=== PATIENT | female | born 1945 | race Caucasian/White ===

== ENCOUNTER 2018-05-19 18:44 | Inpatient (IN) | payer OTHER ==
--- NOTE | 2018-05-19 19:18 | PDOC ---
History of Present Illness - General Chief Complaint: Wound Stated Complaint: WOUND CARE Time Seen by Provider: 05/19/18 19:17 History Source: Patient - History of Present Illness Initial Comments: 05/19/18 19:25 Patient is a 80 year old female with a PMH of HTN, BPD, HLD, DM, pressure ulcers and anemia BIBEMS from [facility] for possible infected sacral decub ulcer as well as B/L heel ulcers. Daughter @ bedside assists in history. Patient has been receiving wound care including wound vac drainage of sacral ulcer for the past 2 weeks. Notes patient @ [facility] since April 03 because she was unable to ambulate. Denies any known fevers/ chills. C/o decreased PO intake with no noted weight loss. NKDA Surgical: Social: denies toxic habits PMD: Dr. Wills Past History - Past Medical History Allergies/Adverse Reactions: Allergies Allergy/AdvReac Type Severity Reaction Status Date / Time No Known Allergies Allergy Verified 05/19/18 18:55 Home Medications: Ambulatory Orders Aa/Hydrolyzed Collagen, Whey [Lps 15-30 Liquid] 30 ml PO BID 05/19/18 Acetaminophen [Tylenol] 650 mg PO QID PRN 05/19/18 Amlodipine Besylate [Norvasc -] 10 mg PO DAILY 05/19/18 Apixaban [Eliquis -] 2.5 mg PO BID 05/19/18 Ascorbic Acid [Vitamin C -] 500 mg PO DAILY 05/19/18 Bacitracin - [Bacitracin Topical Ointment -] 1 applic TP BID 05/19/18 Bisacodyl [Dulcolax -] 5 mg PO DAILY 05/19/18 Collagenase Clostridium Hist. [Santyl] 1 applic TP BID 05/19/18 Ferrous Sulfate [Feosol] 1 tab PO DAILY 05/19/18 Insulin Glargine,Hum.rec.anlog [Lantus Solostar] 12 unit SQ DAILY 05/19/18 Insulin Lispro [Humalog] 0 unit SQ ASDIR 05/19/18 LORazepam [Ativan] 0.5 mg PO BID 05/19/18 Mvit,Calcium,Iron,Mins/A.acids [[place] Double Strength Capsule] 1 each PO DAILY 05/19/18 Polyethylene Glycol 3350 [Miralax (For Daily Use) -] 17 gm PO DAILY 05/19/18 Propranolol HCl 40 mg PO BID 05/19/18 Risperidone [Risperdal] 0.25 mg PO BID 05/19/18 Senna [place] Extract [Senna] 7.5 ml PO HS 05/19/18 Sulfamethoxazole/Trimethoprim [Bactrim Ds -] 1 tab PO BID 05/19/18 - Suicide/Smoking/Psychosocial Hx Smoking History: Unknown if ever smoked Review of Systems - Review of Systems Constitutional: No: Chills, Fever HEENTM: No: Blurred Vision, Double Vision Respiratory: No: Cough, Shortness of Breath Cardiac (ROS): No: Chest Pain, Lightheadedness, Palpitations, Syncope ABD/GI: Yes: Poor Appetite. No: Constipated, Diarrhea, Nausea, Vomiting : No: Burning, Dysuria *Physical Exam - Vital Signs Last Vital Signs Temp Pulse Resp BP Pulse Ox 99.5 F 79 20 113/50 L 100 05/19/18 18:53 05/19/18 18:53 05/19/18 18:53 05/19/18 18:53 05/19/18 18:53 - Physical Exam General Appearance: Yes: Nourished, Thin Neck: positive: Trachea midline, Supple Respiratory/Chest: positive: Lungs Clear, Normal Breath Sounds Cardiovascular: positive: S1, S2. negative: Edema, JVD, Murmur Vascular Pulses: Dorsalis-Pedis (R): 2+, Doralis-Pedis (L): 2+ Integumentary: positive: Other (Stage 4-5, 8x10 sacral decubitus ulcer; 1 mm R sided buttock ulcer) Neurologic: positive: Fully Oriented, Alert ED Treatment Course - LABORATORY CBC & Chemistry Diagram: 05/19/18 20:10 05/19/18 20:10 Medical Decision Making - Medical Decision Making 05/19/18 19:32 73 year old female with sacral decub ulcer and B/L LE ulcers presents for concerns of infected ulcer. Febrile, VS unremarkable. Will obtain wound and blood cultures to r/o infections as well as basic labs. Patient declining any pain medication at this time. 05/19/18 19:55 OTD of Vancomycin for MRSA coverage 05/19/18 22:00 No leukocytosis Cr 1.8 (as per records from [facility] Cr 1.3 on 04/2017) Case d/w Dr. Hightower - will admit for further evaluation including wound care. Patient and patient's daughter counseled on plan of care. *DC/Admit/Observation/Transfer Diagnosis at time of Disposition: AMILCAR (acute kidney injury) - Discharge Dispostion Condition at time of disposition: Fair Decision to Admit order: Yes - Referrals - Patient Instructions - Post Discharge Activity
[2018-05-19] MEDS ORDERED: ACETAMINOPHEN 1000 MG/100 ML VIAL (NON FORMULARY) IVPB ONE (19:54)
[2018-05-19] MEDS ORDERED: SODIUM CHLORIDE 0.9% 1000 ML INFUS.BAG IV STA (19:54)
[2018-05-19] MEDS ORDERED: ACETAMINOPHEN INJECTION 100 ML IVPB ONE (20:31)
[2018-05-19 20:45] LABS: BASO % 0.7 % (0-2.0); EOS % 2.5 % (0-4.5); HEMATOCRIT 29.7 % (32.4-45.2); HEMOGLOBIN 9.5 GM/dL (10.7-15.3); LYMPH % 12.6 % (8-40); MCH 29.8 pg (25.7-33.7); MEAN CELL VOLUME 93.1 fl (80-96); MONO % 8.3 % (3.8-10.2); NEUT % 75.9 % (42.8-82.8); PLATELET COUNT 530 K/MM3 (134-434); RBC 3.18 M/mm3 (3.60-5.2); RDW 15.6 % (11.6-15.6); WHITE BLOOD COUNT 8.9 K/mm3 (4.0-10.0)
[2018-05-19] MEDS ORDERED: VANCOMYCIN 1,000 MG in DEXTROSE 5%-WATER - 250 ML IVPB ONE (20:53)
[2018-05-19 21:21] LABS: ALK PHOS 171 U/L (45-117); ANION GAP 10 MMOL/L (8-16); BILIRUBIN,TOTAL 0.2 mg/dL (0.2-1); BLOOD UREA NITROGEN 42 mg/dL (7-18); CALCIUM 8.9 mg/dL (8.5-10.1); CHLORIDE 109 mmol/L (98-107); CO2 18 mmol/L (21-32); CREATININE 1.8 mg/dL (0.55-1.3); GLUCOSE,RANDOM 157 mg/dL (74-106); POTASSIUM 5.3 mmol/L (3.5-5.1); SGOT/AST 40 U/L (15-37); SGPT/ALT 82 U/L (13-61); SODIUM 138 mmol/L (136-145); TOT PROT 6.5 g/dl (6.4-8.2)
[2018-05-19] MEDS ORDERED: SODIUM CHLORIDE 0.9% 1000 ML INFUS.BAG IV ONE (21:34)
--- NOTE | 2018-05-19 21:58 | PDOC ---
Attending Attestation - Resident Resident Name: Raquel Morris - ED Attending Attestation I have performed the following: I have examined & evaluated the patient, The case was reviewed & discussed with the resident, I agree w/resident's findings & plan, Exceptions are as noted - HPI HPI: 05/19/18 21:56 The patient is a 73 year old female, with a significant past medical history of HTN, BPD, HLD, DM, pressure ulcers, and anemia via EMS from [facility], who presents to the emergency department with infected decubitus ulcers. As per patients daughter, she was receiving wound care of her decubitus ulcer for the past 2 weeks but it has been worsening. She reports foul smelling and purulent discharge. The daughter also endorses decreased PO intake without noticeable weight loss. The patient notes not feeling well. She denies any recent nausea, vomiting, change in urinary or bowel habits. The history was obtained from the daughter at bedside. Allergies: NKA Past surgical history: None reported. Social history: Nonsmoker. Denies EtOH use and recreational drug use. Primary Care Physician: Dr. Wills - Physicial Exam PE: 05/19/18 21:57 GENERAL: Awake, alert, and fully oriented, in no acute distress. HEAD: No signs of trauma EYES: PERRLA, EOMI, sclera anicteric, conjunctiva clear ENT: Auricles normal inspection, hearing grossly normal, nares patent, oropharynx clear without exudates. Moist mucosa NECK: Nontender, no stepoffs, Normal ROM, supple, no lymphadenopathy, JVD, or masses LUNGS: Breath sounds equal, clear to auscultation bilaterally. No wheezes, and no crackles HEART: Regular rate and rhythm, normal S1 and S2, no murmurs, rubs or gallops ABDOMEN: Soft, nontender, normoactive bowel sounds. No guarding, no rebound. No masses EXTREMITIES: Normal range of motion, no edema. No clubbing or cyanosis. No cords, erythema, or tenderness NEUROLOGICAL: Cranial nerves II through XII intact. 5/5 strength and sensation in all extremities, Normal speech, normal gait, normal cerebellar function SKIN: + large sacral decubitus ulcer + purulent discharge, erythema - Medical Decision Making 05/19/18 21:57 73 F with infected sacral decub. Febrile in ED to 100.3. - Labs, cultures, wound culture - CXR, UA - IVF, abx - Admit
[2018-05-19] MEDS ORDERED: VANCOMYCIN 1 GRAM (PRE-DOCKED) 1,000 MG/250 ML BAG IVPB ONE (22:08)
[2018-05-19 23:01] LABS: ERYTHROCYTE SEDIMENTATION RATE 108 mm/hr (0-30)
[2018-05-19] MEDS ORDERED: SODIUM CHLORIDE 1,000 ML IV SCH (23:45)
[2018-05-19] MEDS ORDERED: PIPERACILLIN/TAZOB 3.375 GM 3.375 GM in DEXTROSE 5%-WATER - 50 ML IVPB ONE (23:52)
[2018-05-20] MEDS ORDERED: ACETAMINOPHEN 325 MG TABLET (FP) PO PRN (00:07)
--- NOTE | 2018-05-20 00:07 | HP ---
CHIEF COMPLAINT: sent from [facility] for wound infection PCP: Johann Florence HISTORY OF PRESENT ILLNESS: This is a 73 year old female with a past medical history of HTN, HLD, DM, chronic ulcers who was sent from her [facility] for her wounds. Pt denies any pain or distress. Pt is poor historian, history obtained from chart ER course was notable for: (1) WBC 8.9 (2) CRP 4.2 (3) ESR 108 Recent Travel: pt denies PAST MEDICAL HISTORY: HTN, HLD, DM, bipolar disorder, anxiety, DVT PAST SURGICAL HISTORY: unknown Social History: Smoking: quit Alcohol: pt denies Drugs: pt denies Family History: unk Allergies No Known Allergies Allergy (Verified 05/19/18 18:55) HOME MEDICATIONS: 3 Medication Instructions Recorded Aa/Hydrolyzed Collagen, Whey [Lps 30 ml PO BID 05/19/18 15-30 Liquid] Acetaminophen [Tylenol] 650 mg PO QID PRN 05/19/18 Amlodipine Besylate [Norvasc -] 10 mg PO DAILY 05/19/18 Apixaban [Eliquis -] 2.5 mg PO BID 05/19/18 Ascorbic Acid [Vitamin C -] 500 mg PO DAILY 05/19/18 Bacitracin - [Bacitracin Topical 1 applic TP BID 05/19/18 Ointment -] Bisacodyl [Dulcolax -] 5 mg PO DAILY 05/19/18 Collagenase Clostridium Hist. 1 applic TP BID 05/19/18 [Santyl] Ferrous Sulfate [Feosol] 1 tab PO DAILY 05/19/18 Insulin Glargine,Hum.rec.anlog 12 unit SQ DAILY 05/19/18 [Lantus Solostar] Insulin Lispro [Humalog] 0 unit SQ ASDIR 05/19/18 LORazepam [Ativan] 0.5 mg PO BID 05/19/18 Mvit,Calcium,Iron,Mins/A.acids 1 each PO DAILY 05/19/18 [[place] Double Strength Capsule] Polyethylene Glycol 3350 [Miralax 17 gm PO DAILY 05/19/18 (For Daily Use) -] Propranolol HCl 40 mg PO BID 05/19/18 Risperidone [Risperdal] 0.25 mg PO BID 05/19/18 Senna [place] Extract [Senna] 7.5 ml PO HS 05/19/18 Sulfamethoxazole/Trimethoprim 1 tab PO BID 05/19/18 [Bactrim Ds -] REVIEW OF SYSTEMS CONSTITUTIONAL: Absent: fever, chills, diaphoresis, generalized weakness, malaise, loss of appetite, weight change HEENT: Absent: rhinorrhea, nasal congestion, throat pain, throat swelling, difficulty swallowing, mouth swelling, ear pain, eye pain, visual changes CARDIOVASCULAR: Absent: chest pain, syncope, palpitations, irregular heart rate, lightheadedness , peripheral edema RESPIRATORY: Absent: cough, shortness of breath, dyspnea with exertion, orthopnea, wheezing, stridor, hemoptysis GASTROINTESTINAL: Absent: abdominal pain, abdominal distension, nausea, vomiting, diarrhea, constipation, melena, hematochezia GENITOURINARY: Absent: dysuria, frequency, urgency, hesitancy, hematuria, flank pain, genital pain MUSCULOSKELETAL: Absent: myalgia, arthralgia, joint swelling, back pain, neck pain SKIN: Present: multiple pressure ulcers Absent: rash, itching, pallor HEMATOLOGIC/IMMUNOLOGIC: Absent: easy bleeding, easy bruising, lymphadenopathy, frequent infections ENDOCRINE: Absent: unexplained weight gain, unexplained weight loss, heat intolerance, cold intolerance NEUROLOGIC: Absent: headache, focal weakness or paresthesias, dizziness, unsteady gait, seizure, mental status changes, bladder or bowel incontinence PSYCHIATRIC: Absent: anxiety, depression, suicidal or homicidal ideation, hallucinations. PHYSICAL EXAMINATION Vital Signs - 24 hr 3 05/19/18 05/19/18 05/19/18 18:53 20:42 23:47 Temperature 99.5 F 100.7 F H 99.5 F Pulse Rate 79 Pulse Rate [ 79 Right] Respiratory 20 18 Rate Blood Pressure 113/50 L Blood Pressure 101/41 L [Left Arm] O2 Sat by Pulse 100 100 99 Oximetry (%) GENERAL: Awake, alert, and oriented to person only, in no acute distress. HEAD: Normal with no signs of trauma. EYES: Pupils equal, round and reactive to light, extraocular movements intact, sclera anicteric, conjunctiva clear. No lid lag. EARS, NOSE, THROAT: Ears normal, nares patent, oropharynx clear without exudates. Moist mucous membranes. NECK: Normal range of motion, supple without lymphadenopathy, JVD, or masses. LUNGS: Breath sounds equal, clear to auscultation bilaterally. No wheezes, and no crackles. No accessory muscle use. HEART: Regular rate and rhythm, normal S1 and S2 without murmur, rub or gallop. ABDOMEN: Soft, nontender, not distended, normoactive bowel sounds, no guarding, no rebound, no masses. No hepatomegaly or splenomegaly. MUSCULOSKELETAL: Normal range of motion at all joints. No bony deformities or tenderness. No CVA tenderness. UPPER EXTREMITIES: 2+ pulses, warm, well-perfused. No cyanosis. No clubbing. No peripheral edema. LOWER EXTREMITIES: 2+ pulses, warm, well-perfused. No calf tenderness. No peripheral edema. NEUROLOGICAL: Cranial nerves II-XII intact. Normal speech. PSYCHIATRIC: Cooperative. Good eye contact. Appropriate mood and affect. SKIN: Warm, dry, normal turgor, no rashes noted, normal capillary refill. Multiple wounds as follows: right lateral malleolus 0.9cm x 0.6cm x 0cm 100% slough right heel/posterior heel 9.4cm x 4.7cm x 0cm 100% eschar. surrounding skin macerated Left posterior heel 1.6cm x 2.2cm x 0cm 100% eschar. surrounding skin macerated left heel 6.8cm x 5.3cm x 0cm 100% eschar. surrounding skin macerated R ischium 0.7cm x 0.5cm x 0.2cm, wound bed with slough R sacral/buttock area 1.4cm x 0.8cm wound bed pink and yellow R sacrum 6.3 x 8.8 x 3.9 + slough. + undermining 8 oclock, exposed bone in center. surrounding skin macerated. + malodorous left lateral buttock with small excoriation Laboratory Results - last 24 hr 3 05/19/18 05/19/18 20:10 20:10 WBC 8.9 RBC 3.18 L Hgb 9.5 L Hct 29.7 L MCV 93.1 MCH 29.8 MCHC 32.0 RDW 15.6 Plt Count 530 H MPV 8.0 Absolute Neuts (auto) 6.7 Neutrophils % 75.9 Lymphocytes % 12.6 Monocytes % 8.3 Eosinophils % 2.5 Basophils % 0.7 Nucleated RBC % 0 ESR 108 H Sodium 138 Potassium 5.3 H Chloride 109 H Carbon Dioxide 18 L Anion Gap 10 BUN 42 H Creatinine 1.8 H Creat Clearance w eGFR 27.66 Random Glucose 157 H Calcium 8.9 Total Bilirubin 0.2 AST 40 H ALT 82 H Alkaline Phosphatase 171 H C-Reactive Protein 14.2 H Total Protein 6.5 Albumin 2.0 L ECG Sinus rhythm with PAC vent rate 80, QTC 435 poor baseline, difficult to interpret ASSESSMENT/PLAN: 73yF with PMH HTN, HLD, DM, bipolar disorder, anxiety, DVT presented to the ED for wound infection. sacral wound infection, likely osteo - suggest imaging to r/o osteo vs bone biopsy - add zosyn to antibiotic regimen - cont vanco - ID consult - rec vasc or general surgery consult, defer to PCP - santyl to wound BID B/L heel ulcers with eschar - needs vascular consult or podiatry consult for debridement, defer to PCP - santyl to wounds daily AMILCAR - BUN 42/Cr 1.8, Cr 1.31 on 05/11 - trial gentle IV hydration - if no improvement, renal consult HTN - cont home meds: amlodipine, propranolol DM - cont home levemir 12units daily - BGM AC/HS, novolog sliding scale - adjust as indicated by glucose h/o DVT - cont apixaban bipolar - cont risperidone and ativan DVT PPX - on apixaban FEN - NS @ 75cc/hr - BMP in am - Diabetic low sodium diet as tolerated Dispo: Pt currently requires further inpatient managment of her emergent condition. Visit type - Emergency Visit Emergency Visit: Yes ED Registration Date: 05/19/18 Care time: The patient presented to the Emergency Department on the above date and was hospitalized for further evaluation of their emergent condition. - New Patient This patient is new to me today: Yes Date on this admission: 05/19/18 - Critical Care Critical Care patient: No
[2018-05-20] MEDS ORDERED: PIPERACILLIN/TAZOBACTAM 3.375 GM VIAL IVPB ONE (01:16)
[2018-05-20] MEDS ORDERED: DEXTROSE 5%-WATER - 50 ML IVPB ONE ×3 (01:16→17:12)
[2018-05-20 04:07] VITALS: BMI 24.3
[2018-05-20] MEDS ORDERED: HEPARIN NA (PORCINE) 5,000 UNITS/ML 1ML VIAL SQ SCH (06:00)
[2018-05-20] MEDS: INSULIN (LEVEMIR) 100 UNITS/ML UNITS SQ SCH (06:24)
[2018-05-20] MEDS: INSULIN SLIDING SCALE (NOVOLOG) 1 VIAL SQ SCH ×4 (06:26→21:19)
[2018-05-20 07:14] LABS: BASO % 0.5 % (0-2.0); EOS % 1.8 % (0-4.5); HEMATOCRIT 26.7 % (32.4-45.2); HEMOGLOBIN 8.6 GM/dL (10.7-15.3); LYMPH % 9.8 % (8-40); MCH 29.6 pg (25.7-33.7); MCHC 32.3 g/dl (32.0-36.0); MEAN CELL VOLUME 91.7 fl (80-96); MEAN PLT VOLUME 7.8 fl (7.5-11.1); MONO % 7.7 % (3.8-10.2); NEUT % 80.2 % (42.8-82.8); PLATELET COUNT 426 K/MM3 (134-434); RBC 2.91 M/mm3 (3.60-5.2); RDW 15.9 % (11.6-15.6); WHITE BLOOD COUNT 9.4 K/mm3 (4.0-10.0)
[2018-05-20 07:55] LABS: ANION GAP 9 MMOL/L (8-16); BLOOD UREA NITROGEN 36 mg/dL (7-18); CALCIUM 8.5 mg/dL (8.5-10.1); CHLORIDE 113 mmol/L (98-107); CO2 17 mmol/L (21-32); CREATININE 1.6 mg/dL (0.55-1.3); GLUCOSE,RANDOM 117 mg/dL (74-106); MAGNESIUM 2.1 mg/dL (1.8-2.4); PHOSPHOROUS 3.2 mg/dL (2.5-4.9); POTASSIUM 4.8 mmol/L (3.5-5.1); SODIUM 139 mmol/L (136-145)
[2018-05-20] MEDS: BACITRACIN 15 GM TUBE TOPICAL OINTMENT TP SCH ×2 (09:06→21:11)
[2018-05-20] MEDS: LORazepam 0.5 MG TABLET PO SCH ×2 (09:06→21:10)
[2018-05-20] MEDS: FERROUS SO4 325 MG TABLET (FP) PO SCH (09:06)
[2018-05-20] MEDS: APIXABAN 2.5 MG TABLET PO SCH ×2 (09:06→21:10)
[2018-05-20] MEDS: MULTIVITAMINS THER W-MINERALS COMBO TABLET (FP) PO SCH (09:06)
[2018-05-20] MEDS: ASCORBIC ACID 500 MG TABLET (FP) PO SCH (09:06)
[2018-05-20] MEDS: BISACODYL 5 MG TABLET.DR (FP) PO SCH (09:06)
[2018-05-20] MEDS ORDERED: COLLAGENASE CLOSTRIDIUM HIST. 30 GRAMS TUBE TP SCH ×3 (10:00)
[2018-05-20] MEDS: risperiDONE 0.25 MG TABLET (FP) PO SCH ×3 (10:00→21:11)
[2018-05-20] MEDS ORDERED: PATIENT'S OWN MEDICATION (NON-FORMULARY) (Aa/Hydrolyzed Collagen, Whey [Lps 15-30 Liquid] PO SCH (10:00)
[2018-05-20] MEDS ORDERED: amLODIPine BESYLATE 10 MG TABLET (FP) PO SCH ×2 (10:00→15:02)
[2018-05-20] MEDS ORDERED: POLYETHYLENE GLYCOL 3350 119 GM BTL PO SCH (10:00)
--- NOTE | 2018-05-20 11:37 | PN ---
Progress Note, Physician Chief Complaint: Pt lying in bed in no acute distress. poor historian. currently denies any chest pain, sob, n/v/d - Current Medication List Current Medications: Active Medications Acetaminophen (Tylenol -) 650 mg PO Q6H PRN PRN Reason: PAIN LEVEL 1-5 OR FEVER Amlodipine Besylate (Norvasc -) 10 mg PO DAILY [facility] Last Admin: 05/20/18 09:06 Dose: 10 mg Apixaban (Eliquis -) 2.5 mg PO BID [facility] Last Admin: 05/20/18 09:06 Dose: 2.5 mg Ascorbic Acid (Vitamin C -) 500 mg PO DAILY [facility] Last Admin: 05/20/18 09:06 Dose: 500 mg Bacitracin (Bacitracin -) 1 applic TP BID [facility] Last Admin: 05/20/18 09:06 Dose: 1 applic Bisacodyl (Dulcolax -) 5 mg PO DAILY [facility] Last Admin: 05/20/18 09:06 Dose: 5 mg Collagenase (Santyl -) 1 applic TP DAILY [facility]; Protocol Collagenase (Santyl -) 1 applic TP BID [facility]; Protocol Ferrous Sulfate (Feosol -) 325 mg PO DAILY [facility] Last Admin: 05/20/18 09:06 Dose: 325 mg Sodium Chloride (Normal Saline -) 1,000 mls @ 75 mls/hr IV ASDIR [facility] Last Admin: 05/20/18 01:29 Dose: 75 mls/hr Insulin Aspart (Novolog Vial Sliding Scale -) 1 vial SQ ACHS [facility]; Protocol Last Admin: 05/20/18 06:26 Dose: Not Given Insulin Detemir (Levemir Vial) 12 units SQ DAILY@0700 [facility] Last Admin: 05/20/18 06:24 Dose: 12 units Lorazepam (Ativan -) 0.5 mg PO BID [facility] Last Admin: 05/20/18 09:06 Dose: 0.5 mg Multivitamins/Minerals (Theragran-M) 1 each PO DAILY [facility] Last Admin: 05/20/18 09:06 Dose: 1 each Polyethylene Glycol (Miralax (For Daily Use) -) 17 gm PO DAILY [facility] Propranolol HCl (Inderal -) 40 mg PO BID [facility] Risperidone (Risperdal -) 0.25 mg PO BID [facility] Senna (Senna Oral Solution -) 13.2 mg PO HS YOAV - Objective Vital Signs: Vital Signs Temperature 98.4 F 05/20/18 05:46 Pulse Rate 86 05/20/18 05:46 Respiratory Rate 18 05/20/18 05:46 Blood Pressure 128/42 L 05/20/18 05:46 O2 Sat by Pulse Oximetry (%) 99 05/20/18 03:48 Constitutional: Yes: Well Nourished, No Distress Cardiovascular: Yes: WNL, Regular Rate and Rhythm Respiratory: Yes: WNL, Regular, CTA Bilaterally. No: Accessory Muscle Use, Rhonchi, SOB, Tachypnea, Wheezes Gastrointestinal: Yes: WNL, Normal Bowel Sounds, Soft. No: Distention, Tenderness Genitourinary: Yes: Incontinence Edema: Yes Edema: LLE: 1+, RLE: 1+ Integumentary: Yes: Pressure Ulcer (Stage 4 sacrum, Stage 2 right buttock, stage 1 left buttock, right posterior thigh stage 2, b/l heels unstagable) Wound/Incision: Yes: Dressing Removed Neurological: Yes: WNL, Alert, Oriented Psychiatric: Yes: WNL, Alert, Oriented Labs: CBC, BMP 05/20/18 06:40 05/20/18 06:40 Problem List - Problems (1) Sepsis Assessment/Plan: tachy,hypotensive w/ amilcar and acute transaminitis- 2/2 hypoperfusion blood cultures positive 2/4- anaerobic suspect deep wound pressure ulcers as source of infection IVF Zosyn lactic acid ordered ID following close monitoring Code(s): A41.9 - SEPSIS, UNSPECIFIED ORGANISM (2) Pressure ulcer Assessment/Plan: multiple pressure ulcers stated as above ESR/CRP elevation wbc wnl, afebrile wound culture pending as above vascular consulted Code(s): L89.90 - PRESSURE ULCER OF UNSPECIFIED SITE, UNSPECIFIED STAGE Qualifiers: Pressure injury location: sacral region Pressure injury stage: stage 4 Qualified Code(s): L89.154 - Pressure ulcer of sacral region, stage 4 (3) Multiple open wounds Assessment/Plan: as above Code(s): T07.XXXA - UNSPECIFIED MULTIPLE INJURIES, INITIAL ENCOUNTER (4) AMILCAR (acute kidney injury) Assessment/Plan: improving baseline 1.3 per records IVF monitor Code(s): N17.9 - ACUTE KIDNEY FAILURE, UNSPECIFIED (5) Transaminitis Assessment/Plan: improving 2/2 hypoperfusion/sepsis monitor Code(s): R74.0 - NONSPEC ELEV OF LEVELS OF TRANSAMNS & LACTIC ACID DEHYDRGNSE (6) HTN (hypertension) Assessment/Plan: controlled continue home meds Code(s): I10 - ESSENTIAL (PRIMARY) HYPERTENSION Qualifiers: Hypertension type: essential hypertension Qualified Code(s): I10 - Essential (primary) hypertension (7) Diabetes Assessment/Plan: w/ multiple complications ckd, ulcers treated in SNF for uti- repeat UA/UC bgm, insulin sliding scale levemir Code(s): E11.9 - TYPE 2 DIABETES MELLITUS WITHOUT COMPLICATIONS Qualifiers: Diabetes mellitus type: type 2 Diabetes mellitus [employer] insulin use: with nursing home use Diabetes mellitus complication status: with skin complications Diabetes mellitus complication detail: with foot ulcer Qualified Code(s): E11.621 - Type 2 diabetes mellitus with foot ulcer; L97.509 - Non-pressure chronic ulcer of other part of unspecified foot with unspecified severity; Z79.4 - long-term (current) use of insulin (8) CKD (chronic kidney disease) Code(s): N18.9 - CHRONIC KIDNEY DISEASE, UNSPECIFIED Qualifiers: Chronic kidney disease stage: stage 2 (mild) Qualified Code(s): N18.2 - Chronic kidney disease, stage 2 (mild) (9) Anemia Assessment/Plan: suspect 2/2 ckd/chronic disease hg/hct stable iron panel/hemeoccult ordered monitor Code(s): D64.9 - ANEMIA, UNSPECIFIED Qualifiers: Chronic kidney disease stage: stage 3 (moderate) (10) Bipolar 1 disorder Assessment/Plan: stable continue risperidone Code(s): F31.9 - BIPOLAR DISORDER, UNSPECIFIED (11) History of DVT (deep vein thrombosis) Assessment/Plan: anticoagulated on eliquis Code(s): Z86.718 - PERSONAL HISTORY OF OTHER VENOUS THROMBOSIS AND EMBOLISM
[2018-05-20] MEDS: COLLAGENASE CLOSTRIDIUM HIST. 30 GRAMS TUBE TP SCH ×2 (11:40→21:16)
--- NOTE | 2018-05-20 13:21 | EKG ---
Test Reason : Blood Pressure : / mmHG Vent. Rate : 080 BPM Atrial Rate : 080 BPM P-R Int : 200 ms QRS Dur : 074 ms QT Int : 378 ms P-R-T Axes : 081 041 079 degrees QTc Int : 435 ms POOR DATA QUALITY, INTERPRETATION MAY BE ADVERSELY AFFECTED SINUS RHYTHM WITH PREMATURE ATRIAL COMPLEXES WITH ABERRANT CONDUCTION OTHERWISE NORMAL ECG NO PREVIOUS ECGS AVAILABLE Confirmed by EDENILSON MALIK, BEAU ([id number]) on 05/20/2018 1:20:56 PM Referred By: Confirmed By:BEAU PYLE MD
[2018-05-20 13:35] LABS: ALBUMIN 1.7 g/dl (3.4-5.0); ALK PHOS 141 U/L (45-117); BILIRUBIN,DIRECT < 0.2 mg/dL (0.0-0.2); BILIRUBIN,TOTAL 0.2 mg/dL (0.2-1); SGOT/AST 36 U/L (15-37); SGPT/ALT 65 U/L (13-61); TOT PROT 5.5 g/dl (6.4-8.2)
--- NOTE | 2018-05-20 13:47 | CON.ID ---
Consult Consult Specialty:: infectious diseases Referred by:: raimundo Reason for Consultation:: wounds and gm negative bacteremia - History of Present Illness History of Present Illness: patient does not know why she is here.cannot give history which is obtained from the charts and er records 73 year old female with a past medical history of HTN, HLD, DM, chronic ulcers who was sent from her NH for her wounds. Pt denies any pain or distress. patient has had multiple wounds for some time her wounds have been recorded she is weak patient was worked up and found to have gm negative bacteremia - History Source History Provided By: Patient, Medical Record Limitations to Obtaining History: Poor Historian - Smoking History Smoking history: Unknown if ever smoked Have you smoked in the past 12 months: No Home Medications - Allergies Allergies/Adverse Reactions: Allergies Allergy/AdvReac Type Severity Reaction Status Date / Time No Known Allergies Allergy Verified 05/19/18 18:55 - Home Medications Home Medications: Ambulatory Orders Aa/Hydrolyzed Collagen, Whey [Lps 15-30 Liquid] 30 ml PO BID 05/19/18 Acetaminophen [Tylenol] 650 mg PO QID PRN 05/19/18 Amlodipine Besylate [Norvasc -] 10 mg PO DAILY 05/19/18 Apixaban [Eliquis -] 2.5 mg PO BID 05/19/18 Ascorbic Acid [Vitamin C -] 500 mg PO DAILY 05/19/18 Bacitracin - [Bacitracin Topical Ointment -] 1 applic TP BID 05/19/18 Bisacodyl [Dulcolax -] 5 mg PO DAILY 05/19/18 Collagenase Clostridium Hist. [Santyl] 1 applic TP BID 05/19/18 Ferrous Sulfate [Feosol] 1 tab PO DAILY 05/19/18 Insulin Glargine,Hum.rec.anlog [Lantus Solostar] 12 unit SQ DAILY 05/19/18 Insulin Lispro [Humalog] 0 unit SQ ASDIR 05/19/18 LORazepam [Ativan] 0.5 mg PO BID 05/19/18 Mvit,Calcium,Iron,Mins/A.acids [K-[place] Double Strength Capsule] 1 each PO DAILY 05/19/18 Polyethylene Glycol 3350 [Miralax (For Daily Use) -] 17 gm PO DAILY 05/19/18 Propranolol HCl 40 mg PO BID 05/19/18 Risperidone [Risperdal] 0.25 mg PO BID 05/19/18 Senna [place] Extract [Senna] 7.5 ml PO HS 05/19/18 Sulfamethoxazole/Trimethoprim [Bactrim Ds -] 1 tab PO BID 05/19/18 Review of Systems Unable to obtain ROS, reason: unable to obtain Physical Exam Vital Signs: Vital Signs Temperature 98.3 F 05/20/18 11:28 Pulse Rate 97 H 05/20/18 11:28 Respiratory Rate 18 05/20/18 11:28 Blood Pressure 114/63 05/20/18 11:28 O2 Sat by Pulse Oximetry (%) 99 05/20/18 03:48 Constitutional: Yes: No Distress, Calm, Other Neck: Yes: Supple, Trachea Midline Cardiovascular: Yes: Regular Rate and Rhythm Respiratory: Yes: Regular, CTA Bilaterally Gastrointestinal: Yes: Normal Bowel Sounds, Soft Musculoskeletal: Yes: Other Extremities: Yes: Other Wound/Incision: Yes: Other (Multiple wounds as follows: right lateral malleolus 0.9cm x 0.6cm x 0cm 100% slough right heel/posterior heel 9.4cm x 4.7cm x 0cm 100% eschar. surrounding skin macerated Left posterior heel 1.6cm x 2.2cm x 0cm 100% eschar. surrounding skin macerated left heel 6.8cm x 5.3cm x 0cm 100% eschar. surrounding skin macerated R ischium 0.7cm x 0.5cm x 0.2cm, wound bed with slough R sacral/buttock area 1.4cm x 0.8cm wound bed pink and yellow R sacrum 6.3 x 8.8 x 3.9 + slough. + undermining 8 oclock, exposed bone in center. surrounding skin macerated. + malodorous left lateral buttock with small excoriation) Neurological: Yes: Alert Psychiatric: Yes: Alert Labs: CBC, BMP 05/20/18 06:40 05/20/18 06:40 Imaging - Results Chest X-ray: Report Reviewed, Image Reviewed Assessment/Plan Problem List - Problems (1) Sepsis Code(s): A41.9 - SEPSIS, UNSPECIFIED ORGANISM (2) Pressure ulcer Code(s): L89.90 - PRESSURE ULCER OF UNSPECIFIED SITE, UNSPECIFIED STAGE Qualifiers: Pressure injury location: sacral region Pressure injury stage: stage 4 Qualified Code(s): L89.154 - Pressure ulcer of sacral region, stage 4 (3) Multiple open wounds Code(s): T07.XXXA - UNSPECIFIED MULTIPLE INJURIES, INITIAL ENCOUNTER (4) AMILCAR (acute kidney injury) Code(s): N17.9 - ACUTE KIDNEY FAILURE, UNSPECIFIED (5) Transaminitis Code(s): R74.0 - NONSPEC ELEV OF LEVELS OF TRANSAMNS & LACTIC ACID DEHYDRGNSE (6) HTN (hypertension) Code(s): I10 - ESSENTIAL (PRIMARY) HYPERTENSION Qualifiers: Hypertension type: essential hypertension Qualified Code(s): I10 - Essential (primary) hypertension (7) Diabetes Code(s): E11.9 - TYPE 2 DIABETES MELLITUS WITHOUT COMPLICATIONS Qualifiers: Diabetes mellitus type: type 2 Diabetes mellitus skilled nursing insulin use: with skilled nursing use Diabetes mellitus complication status: with skin complications Diabetes mellitus complication detail: with foot ulcer Qualified Code(s): E11.621 - Type 2 diabetes mellitus with foot ulcer; L97.509 - Non-pressure chronic ulcer of other part of unspecified foot with unspecified severity; Z79.4 - MCFP (current) use of insulin (8) CKD (chronic kidney disease) Code(s): N18.9 - CHRONIC KIDNEY DISEASE, UNSPECIFIED Qualifiers: Chronic kidney disease stage: stage 2 (mild) Qualified Code(s): N18.2 - Chronic kidney disease, stage 2 (mild) (9) Anemia Code(s): D64.9 - ANEMIA, UNSPECIFIED Qualifiers: Chronic kidney disease stage: stage 3 (moderate) (10) Bipolar 1 disorder Code(s): F31.9 - BIPOLAR DISORDER, UNSPECIFIED (11) History of DVT (deep vein thrombosis) Code(s): Z86.718 - PERSONAL HISTORY OF OTHER VENOUS THROMBOSIS AND EMBOLISM (12) Bacteremia Code(s): R78.81 - BACTEREMIA plan await for identification of bacteria surgery needs to take patient to or for debridement will start patient on zosyn repeat cx yessi be send await for all cx reports from wound patient has probably osteo at sacrum which is probably chronic
[2018-05-20] MEDS ORDERED: PIPERACILLIN/TAZOBACTAM 2.25 GM VIAL IVPB ONE ×2 (14:23→17:12)
[2018-05-20] MEDS: PIPERACILLIN/TAZOB 2.25 GM 2.25 GM in DEXTROSE 5%-WATER - 50 ML IVPB SCH ×2 (14:28→17:30)
--- NOTE | 2018-05-20 16:21 | CONSULT ---
- Consultation REQUESTING PROVIDER: CONSULT REQUEST: We have been asked to surgically evaluate this patient for sacral and bilateral heel wounds. PCP:Bernardo Thomson MD HISTORY OF PRESENT ILLNESS:The history was obtained with the help of her daughter, who was at bedside today. Prior to February she was at home and ambulatory with some unsteadiness. She had an hypogylcemic event which led to admission at [facility]. She was then transferred to rehab facility. During these admission the daughter states that she developed heel and sacral ulcers. She has a Vascular Surgeon who she was seeing for chronic venous insufficiecny and more recently a lower ext DVT. The daughter is unclear as to which leg has to clot and but she did state that the clot was found three weeks ago and she has been on eloquis. Last week when they rescaned her leg in the office she was told that the clot was resolving. PMHx: HTN, DM, bipolar disorder, anxiety, h/o stomach ulcer 40 years ago PSHx: unknown Social HX: smoker until admission at [facility] in February Home Medications Medication Instructions Recorded Aa/Hydrolyzed Collagen, Whey [Lps 30 ml PO BID 05/19/18 15-30 Liquid] Acetaminophen [Tylenol] 650 mg PO QID PRN 05/19/18 Amlodipine Besylate [Norvasc -] 10 mg PO DAILY 05/19/18 Apixaban [Eliquis -] 2.5 mg PO BID 05/19/18 Ascorbic Acid [Vitamin C -] 500 mg PO DAILY 05/19/18 Bacitracin - [Bacitracin Topical 1 applic TP BID 05/19/18 Ointment -] Bisacodyl [Dulcolax -] 5 mg PO DAILY 05/19/18 Collagenase Clostridium Hist. 1 applic TP BID 05/19/18 [Santyl] Ferrous Sulfate [Feosol] 1 tab PO DAILY 05/19/18 Insulin Glargine,Hum.rec.anlog 12 unit SQ DAILY 05/19/18 [Lantus Solostar] Insulin Lispro [Humalog] 0 unit SQ ASDIR 05/19/18 LORazepam [Ativan] 0.5 mg PO BID 05/19/18 Mvit,Calcium,Iron,Mins/A.acids 1 each PO DAILY 05/19/18 [K-[place] Double Strength Capsule] Polyethylene Glycol 3350 [Miralax 17 gm PO DAILY 05/19/18 (For Daily Use) -] Propranolol HCl 40 mg PO BID 05/19/18 Risperidone [Risperdal] 0.25 mg PO BID 05/19/18 Senna [place] Extract [Senna] 7.5 ml PO HS 05/19/18 Sulfamethoxazole/Trimethoprim 1 tab PO BID 05/19/18 [Bactrim Ds -] Allergies Allergy/AdvReac Type Severity Reaction Status Date / Time No Known Allergies Allergy Verified 05/19/18 18:55 REVIEW OF SYSTEMS: CONSTITUTIONAL: Absent: fever, chills CARDIOVASCULAR: Absent: chest pain, syncope RESPIRATORY: Absent: cough, shortness of breath. ABD: Absent: stomach distention, pain PHYSICAL EXAM: GENERAL: Awake, alert, in no acute distress, answers questions. HEAD: Normal with no signs of trauma. EYES: sclera anicteric, conjunctiva clear. ABDOMEN: Soft, nontender, not distended. Rectal: soft, brown stool MUSCULOSKELETAL: Normal ROM at all joints. No bony deformities or tenderness. LOWER EXTREMITIES: 2+ pulses DP/PT, warm, well-perfused. No calf tenderness. +2 peripheral edema b/l and bilateral heel eschar with no bogginess/drainage noted. No surrounding erythema. NEUROLOGICAL: Normal speech, gait not observed. PSYCH: Cooperative. Good eye contact. Vital Signs Temperature 98.7 F 05/20/18 14:33 Pulse Rate 96 H 05/20/18 14:33 Respiratory Rate 18 05/20/18 11:28 Blood Pressure 109/51 L 05/20/18 14:33 O2 Sat by Pulse Oximetry (%) 99 05/20/18 03:48 Lab Results WBC 9.4 K/mm3 (4.0-10.0) 05/20/18 06:40 RBC 2.91 M/mm3 (3.60-5.2) L 05/20/18 06:40 Hgb 8.6 GM/dL (10.7-15.3) L 05/20/18 06:40 Hct 26.7 % (32.4-45.2) L 05/20/18 06:40 MCV 91.7 fl (80-96) 05/20/18 06:40 MCHC 32.3 g/dl (32.0-36.0) 05/20/18 06:40 RDW 15.9 % (11.6-15.6) H 05/20/18 06:40 Plt Count 426 K/MM3 (134-434) 05/20/18 06:40 Sodium 139 mmol/L (136-145) 05/20/18 06:40 Potassium 4.8 mmol/L (3.5-5.1) 05/20/18 06:40 Chloride 113 mmol/L (98-107) H 05/20/18 06:40 Carbon Dioxide 17 mmol/L (21-32) L 05/20/18 06:40 Anion Gap 9 MMOL/L (8-16) 05/20/18 06:40 BUN 36 mg/dL (7-18) H 05/20/18 06:40 Creatinine 1.6 mg/dL (0.55-1.3) H 05/20/18 06:40 Random Glucose 117 mg/dL (74-106) H 05/20/18 06:40 Calcium 8.5 mg/dL (8.5-10.1) 05/20/18 06:40 Problem List - Problems (1) Pressure ulcer Assessment/Plan: Pt with bilateral heel ulcers/eschars without drainage. Continue heel protective devices with alleyven/protector pads and off load pressure to the heels. No surgical debridment at this time. Plan for sacral ulcer is surgical debidement leon argueta after midnight Please clear the patient medically for the debridment Continue eloquis for DVT for 3 to 6 months Case d/w Dr. Solis and luke with the above plan Code(s): L89.90 - PRESSURE ULCER OF UNSPECIFIED SITE, UNSPECIFIED STAGE Qualifiers: Pressure injury location: sacral region Pressure injury stage: stage 4 Qualified Code(s): L89.154 - Pressure ulcer of sacral region, stage 4
[2018-05-20] MEDS: SODIUM CHLORIDE 1,000 ML IV SCH (16:34)
[2018-05-20] MEDS: AMINO ACIDS/PROTEIN HYDROLYS 30 ML LIQUID.PKT PO SCH (17:31)
[2018-05-20] MEDS ORDERED: PT OWN MED DRAWER 7, Y5N ONE (20:57)
[2018-05-20] MEDS: POLYETHYLENE GLYCOL 3350 119 GM BTL PO SCH (21:18)
[2018-05-20] MEDS ORDERED: SENNOSIDES 8.8 MG/5 ML BULK BOTTLE PO SCH (22:00)
[2018-05-21] MEDS ORDERED: PIPERACILLIN/TAZOBACTAM 2.25 GM VIAL IVPB ONE ×3 (02:32→17:07)
[2018-05-21] MEDS: PIPERACILLIN/TAZOB 2.25 GM 2.25 GM in DEXTROSE 5%-WATER - 50 ML IVPB SCH ×3 (02:40→17:21)
[2018-05-21] MEDS: INSULIN (LEVEMIR) 100 UNITS/ML UNITS SQ SCH (06:15)
[2018-05-21] MEDS: INSULIN SLIDING SCALE (NOVOLOG) 1 VIAL SQ SCH ×4 (06:15→21:13)
[2018-05-21 06:56] LABS: BASO % 0.6 % (0-2.0); EOS % 1.6 % (0-4.5); HEMATOCRIT 25.3 % (32.4-45.2); HEMOGLOBIN 8.1 GM/dL (10.7-15.3); MCH 29.6 pg (25.7-33.7); MEAN CELL VOLUME 92.3 fl (80-96); MEAN PLT VOLUME 7.9 fl (7.5-11.1); MONO % 10.2 % (3.8-10.2); NEUT % 69.6 % (42.8-82.8); PLATELET COUNT 399 K/MM3 (134-434); RBC 2.74 M/mm3 (3.60-5.2); RDW 15.5 % (11.6-15.6); WHITE BLOOD COUNT 7.5 K/mm3 (4.0-10.0)
[2018-05-21 07:23] LABS: ALBUMIN 1.4 g/dl (3.4-5.0); ALK PHOS 133 U/L (45-117); ANION GAP 9 MMOL/L (8-16); BILIRUBIN,TOTAL 0.3 mg/dL (0.2-1); BLOOD UREA NITROGEN 25 mg/dL (7-18); CALCIUM 7.7 mg/dL (8.5-10.1); CHLORIDE 118 mmol/L (98-107); CO2 18 mmol/L (21-32); CREATININE 1.3 mg/dL (0.55-1.3); GLUCOSE,RANDOM 63 mg/dL (74-106); POTASSIUM 3.9 mmol/L (3.5-5.1); SGOT/AST 49 U/L (15-37); SGPT/ALT 58 U/L (13-61); SODIUM 144 mmol/L (136-145); TOT PROT 4.9 g/dl (6.4-8.2)
[2018-05-21 08:06] LABS: SERUM IRON SATURATION 6 % (15-55); TOTAL IRON BINDING CAPACITY 191 ug/dL (250-450); UIBC 179 ug/dL (118-369)
[2018-05-21] MEDS: COLLAGENASE CLOSTRIDIUM HIST. 30 GRAMS TUBE TP SCH ×2 (09:06→21:07)
[2018-05-21] MEDS: SODIUM CHLORIDE 1,000 ML IV SCH ×2 (09:06→16:15)
[2018-05-21] MEDS: BISACODYL 5 MG TABLET.DR (FP) PO SCH (09:07)
[2018-05-21] MEDS: FERROUS SO4 325 MG TABLET (FP) PO SCH (09:07)
[2018-05-21] MEDS: APIXABAN 2.5 MG TABLET PO SCH ×2 (09:07→21:04)
[2018-05-21] MEDS: LORazepam 0.5 MG TABLET PO SCH ×2 (09:07→21:05)
[2018-05-21] MEDS: BACITRACIN 15 GM TUBE TOPICAL OINTMENT TP SCH ×2 (09:07→21:05)
[2018-05-21] MEDS: POLYETHYLENE GLYCOL 3350 119 GM BTL PO SCH ×2 (09:08→21:12)
[2018-05-21] MEDS: MULTIVITAMINS THER W-MINERALS COMBO TABLET (FP) PO SCH (09:08)
[2018-05-21] MEDS: ASCORBIC ACID 500 MG TABLET (FP) PO SCH (09:08)
[2018-05-21] MEDS: risperiDONE 0.25 MG TABLET (FP) PO SCH ×2 (09:08→21:04)
[2018-05-21] MEDS: AMINO ACIDS/PROTEIN HYDROLYS 30 ML LIQUID.PKT PO SCH ×2 (09:09→17:21)
[2018-05-21] MEDS ORDERED: DEXTROSE 5%-WATER - 50 ML IVPB ONE ×2 (09:10→17:07)
--- NOTE | 2018-05-21 09:37 | PN ---
Progress Note, Physician Chief Complaint: Pt lying in bed in no acute distress. poor historian. currently denies any chest pain, sob, n/v/d amlodipine stopped - Current Medication List Current Medications: Active Medications Acetaminophen (Tylenol -) 650 mg PO Q6H PRN PRN Reason: PAIN LEVEL 1-5 OR FEVER Amino Acids (Prosource No Carb Liquid Pkt) 30 ml PO BID@0800,1730 [facility] Last Admin: 05/21/18 09:09 Dose: Not Given Amlodipine Besylate (Norvasc -) 10 mg PO DAILY [facility] Last Admin: 05/21/18 09:06 Dose: 10 mg Apixaban (Eliquis -) 2.5 mg PO BID [facility] Last Admin: 05/21/18 09:07 Dose: Not Given Ascorbic Acid (Vitamin C -) 500 mg PO DAILY [facility] Last Admin: 05/21/18 09:08 Dose: Not Given Bacitracin (Bacitracin -) 1 applic TP BID [facility] Last Admin: 05/21/18 09:07 Dose: 1 applic Bisacodyl (Dulcolax -) 5 mg PO DAILY [facility] Last Admin: 05/21/18 09:07 Dose: Not Given Collagenase (Santyl -) 1 applic TP DAILY [facility]; Protocol Last Admin: 05/21/18 09:05 Dose: 1 applic Collagenase (Santyl -) 1 applic TP BID [facility]; Protocol Last Admin: 05/21/18 09:06 Dose: Not Given Ferrous Sulfate (Feosol -) 325 mg PO DAILY [facility] Last Admin: 05/21/18 09:07 Dose: Not Given Piperacillin Sod/Tazobactam (Sod 2.25 gm/ Dextrose) 50 mls @ 100 mls/hr IVPB Q8H-IV YOAV; Protocol Last Admin: 05/21/18 09:15 Dose: 100 mls/hr Sodium Chloride (Normal Saline -) 1,000 mls @ 100 mls/hr IV ASDIR [facility] Last Admin: 05/21/18 09:06 Dose: 100 mls/hr Insulin Aspart (Novolog Vial Sliding Scale -) 1 vial SQ ACHS [facility]; Protocol Last Admin: 05/21/18 06:15 Dose: Not Given Insulin Detemir (Levemir Vial) 12 units SQ DAILY@0700 [facility] Last Admin: 05/21/18 06:15 Dose: Not Given Lorazepam (Ativan -) 0.5 mg PO BID [facility] Last Admin: 05/21/18 09:07 Dose: Not Given Multivitamins/Minerals (Theragran-M) 1 each PO DAILY [facility] Last Admin: 05/21/18 09:08 Dose: Not Given Polyethylene Glycol (Miralax (For Daily Use) -) 17 gm PO BID [facility] Last Admin: 05/21/18 09:08 Dose: Not Given Propranolol HCl (Inderal -) 40 mg PO BID [facility] Last Admin: 05/21/18 09:06 Dose: 40 mg Risperidone (Risperdal -) 0.25 mg PO BID [facility] Last Admin: 05/21/18 09:08 Dose: Not Given Senna (Senna Oral Solution -) 13.2 mg PO HS [facility] Last Admin: 05/20/18 21:11 Dose: 13.2 mg - Objective Vital Signs: Vital Signs Temperature 99.0 F 05/21/18 05:30 Pulse Rate 68 05/21/18 05:30 Respiratory Rate 18 05/21/18 05:30 Blood Pressure 101/51 L 05/21/18 05:30 O2 Sat by Pulse Oximetry (%) 99 05/20/18 21:00 Constitutional: Yes: Well Nourished, No Distress, Calm Cardiovascular: Yes: WNL, Regular Rate and Rhythm. No: Murmur Respiratory: Yes: WNL, Regular, CTA Bilaterally. No: Accessory Muscle Use, Rhonchi, SOB, Tachypnea, Wheezes Gastrointestinal: Yes: WNL, Normal Bowel Sounds, Soft. No: Distention, Tenderness Genitourinary: Yes: Incontinence Edema: Yes Edema: LLE: 1+, RLE: 1+ Integumentary: Yes: Pressure Ulcer (sacrum, b/l buttocks, right thigh, b/l heels ) Wound/Incision: Yes: Dressing Dry and Intact Neurological: Yes: WNL, Alert, Oriented, Tremors Psychiatric: Yes: WNL, Alert, Oriented Labs: CBC, BMP 05/21/18 06:18 05/21/18 06:18 Problem List - Problems (1) Sepsis Code(s): A41.9 - SEPSIS, UNSPECIFIED ORGANISM (2) Pressure ulcer Code(s): L89.90 - PRESSURE ULCER OF UNSPECIFIED SITE, UNSPECIFIED STAGE Qualifiers: Pressure injury location: sacral region Pressure injury stage: stage 4 Qualified Code(s): L89.154 - Pressure ulcer of sacral region, stage 4 (3) Multiple open wounds Code(s): T07.XXXA - UNSPECIFIED MULTIPLE INJURIES, INITIAL ENCOUNTER (4) AMILCAR (acute kidney injury) Code(s): N17.9 - ACUTE KIDNEY FAILURE, UNSPECIFIED (5) Transaminitis Code(s): R74.0 - NONSPEC ELEV OF LEVELS OF TRANSAMNS & LACTIC ACID DEHYDRGNSE (6) HTN (hypertension) Code(s): I10 - ESSENTIAL (PRIMARY) HYPERTENSION Qualifiers: Hypertension type: essential hypertension Qualified Code(s): I10 - Essential (primary) hypertension (7) Diabetes Code(s): E11.9 - TYPE 2 DIABETES MELLITUS WITHOUT COMPLICATIONS Qualifiers: Diabetes mellitus type: type 2 Diabetes mellitus fpc insulin use: with emt intermediate use Diabetes mellitus complication status: with skin complications Diabetes mellitus complication detail: with foot ulcer Qualified Code(s): E11.621 - Type 2 diabetes mellitus with foot ulcer; L97.509 - Non-pressure chronic ulcer of other part of unspecified foot with unspecified severity; Z79.4 - long-term (current) use of insulin (8) CKD (chronic kidney disease) Code(s): N18.9 - CHRONIC KIDNEY DISEASE, UNSPECIFIED Qualifiers: Chronic kidney disease stage: stage 2 (mild) Qualified Code(s): N18.2 - Chronic kidney disease, stage 2 (mild) (9) Anemia Code(s): D64.9 - ANEMIA, UNSPECIFIED Qualifiers: Chronic kidney disease stage: stage 3 (moderate) (10) Bipolar 1 disorder Code(s): F31.9 - BIPOLAR DISORDER, UNSPECIFIED (11) History of DVT (deep vein thrombosis) Code(s): Z86.718 - PERSONAL HISTORY OF OTHER VENOUS THROMBOSIS AND EMBOLISM (12) Bacteremia Code(s): R78.81 - BACTEREMIA Assessment/Plan (1) Sepsis Assessment/Plan: improving w/ amilcar and acute transaminitis- 2/2 hypoperfusion blood cultures positive 2/4- anaerobic suspect deep wound pressure ulcers as source of infection IVF Zosyn lactic acid wnl, echo w/out signs of endocarditis ID following close monitoring Code(s): A41.9 - SEPSIS, UNSPECIFIED ORGANISM (2) Pressure ulcer Assessment/Plan: sacral stage 4, b/l heels unsteagable, b/l buttocks-stage 2 plan for debridement today- pt medically cleared for procedure ESR/CRP elevation wbc wnl, afebrile wound culture growing org as above vascular consulted Code(s): L89.90 - PRESSURE ULCER OF UNSPECIFIED SITE, UNSPECIFIED STAGE Qualifiers: Pressure injury location: sacral region Pressure injury stage: stage 4 Qualified Code(s): L89.154 - Pressure ulcer of sacral region, stage 4 (3) Multiple open wounds Assessment/Plan: as above Code(s): T07.XXXA - UNSPECIFIED MULTIPLE INJURIES, INITIAL ENCOUNTER (4) AMILCAR (acute kidney injury) Assessment/Plan: improved IVF monitor Code(s): N17.9 - ACUTE KIDNEY FAILURE, UNSPECIFIED (5) Transaminitis Assessment/Plan: improving 2/2 hypoperfusion/sepsis monitor Code(s): R74.0 - NONSPEC ELEV OF LEVELS OF TRANSAMNS & LACTIC ACID DEHYDRGNSE (6) HTN (hypertension) Assessment/Plan: controlled, tends to be low here due to bacteremia amlodipine stopped continue propanolol Code(s): I10 - ESSENTIAL (PRIMARY) HYPERTENSION Qualifiers: Hypertension type: essential hypertension Qualified Code(s): I10 - Essential (primary) hypertension (7) Diabetes Assessment/Plan: w/ multiple complications ckd, ulcers treated in SNF for uti- repeat UA/UC bgm, insulin sliding scale levemir Code(s): E11.9 - TYPE 2 DIABETES MELLITUS WITHOUT COMPLICATIONS Qualifiers: Diabetes mellitus type: type 2 Diabetes mellitus fpc insulin use: with fpc use Diabetes mellitus complication status: with skin complications Diabetes mellitus complication detail: with foot ulcer Qualified Code(s): E11.621 - Type 2 diabetes mellitus with foot ulcer; L97.509 - Non-pressure chronic ulcer of other part of unspecified foot with unspecified severity; 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 (8) CKD (chronic kidney disease) Assessment/Plan: baseline cr 1.3 per records Code(s): N18.9 - CHRONIC KIDNEY DISEASE, UNSPECIFIED Qualifiers: Chronic kidney disease stage: stage 2 (mild) Qualified Code(s): N18.2 - Chronic kidney disease, stage 2 (mild) (9) Anemia Assessment/Plan: hg/hct stable iron level low/tibc low/hemeoccult neg suspect 2/2 ckd/chronic disease continue po iron monitor Code(s): D64.9 - ANEMIA, UNSPECIFIED Qualifiers: Chronic kidney disease stage: stage 3 (moderate) (10) Bipolar 1 disorder Assessment/Plan: stable continue risperidone Code(s): F31.9 - BIPOLAR DISORDER, UNSPECIFIED (11) History of DVT (deep vein thrombosis) Assessment/Plan: anticoagulated on eliquis Code(s): Z86.718 - PERSONAL HISTORY OF OTHER VENOUS THROMBOSIS AND EMBOLISM Dispo: SNF
--- NOTE | 2018-05-21 13:26 | ECHO ---
Name: TOBIAS RATLIFF Exam:Adult Echocardiogram Study Date: 05/21/2018 09:45 AM Age: 73 yrs Reason For Study: ENDOCARDITIS Height: 62 in Weight: 133 lb BSA: 1.6 m2 MMode/2D Measurements & Calculations IVSd: 0.92 cm Ao root diam: 2.7 cm LVIDd: 5.0 cm LA dimension: 3.0 cm LVIDs: 3.2 cm LVPWd: 0.90 cm EDV(Teich): 117.5 ml TAPSE: 2.2 cm ESV(Teich): 41.4 ml RV S Jonh: 11.8 cm/sec Doppler Measurements & Calculations MV E max jonh: 68.1 cm/sec Ao V2 max: 134.2 cm/sec MV A max jonh: 83.9 cm/sec Ao max P.2 mmHg MV E/A: 0.81 LV V1 max P.7 mmHg TR max jonh: 187.0 cm/sec LV V1 max: 82.5 cm/sec TR max P.3 mmHg Med Peak E' Jonh: 6.9 cm/sec Med E/e': 9.8 Lat Peak E' Jonh: 7.8 cm/sec Lat E/e': 8.7 Procedure A complete two-dimensional transthoracic echocardiogram was performed (2D, M-mode, Doppler and color flow Doppler). Left Ventricle The left ventricular size, thickness and function are normal. The left ventricular ejection fraction is normal. Ejection Fraction = 60-65%. The left ventricular wall motion is normal. Right Ventricle The right ventricle is normal in size and function. Atria Normal left and right atrial size and function. Mitral Valve There is no mitral regurgitation noted. Tricuspid Valve There is mild tricuspid regurgitation. Right ventricular systolic pressure is normal. Aortic Valve No hemodynamically significant valvular aortic stenosis. No aortic regurgitation is present. Pulmonic Valve There is no pulmonic valvular regurgitation. Great Vessels The aortic root is normal size. Pericardium/Pleura There is no pericardial effusion. Interpretation Summary The left ventricular size, thickness and function are normal. The right ventricle is normal in size and function. There is mild tricuspid regurgitation. MD Manas Stroud 05/21/2018 01:26 PM
[2018-05-21] MEDS ORDERED: MIDAZOLAM HCL 2 MG/2 ML SINGLE DOSE VIAL ONE (14:59)
[2018-05-21] MEDS ORDERED: LIDOCAINE HCL 0.5%, 5 MG/ML (50mL SDVIAL) PNB ONE (15:15)
--- NOTE | 2018-05-21 15:20 | OP ---
Operative Note - Note: Operative Date: 05/21/18 Pre-Operative Diagnosis: sacral ulcer stage 4 Operation: Excisional debridment skin, subcutaneous tissue, muscle sacrum Post-Operative Diagnosis: Same as Pre-op Surgeon: Romero Solis Anesthesia: Fractional Estimated Blood Loss (mls): 20 Operative Report Dictated: Yes
[2018-05-21] MEDS ORDERED: PROMETHAZINE HCL 25 MG/1 ML VIAL IVPUSH PRN (15:32)
[2018-05-21] MEDS ORDERED: ONDANSETRON 4 MG/2 ML VIAL IVPUSH PRN (15:32)
[2018-05-21] MEDS ORDERED: oxyCODONE HCL 5 MG TABLET PO PRN (15:32)
--- NOTE | 2018-05-21 15:40 | PN ---
Progress Note, Physician History of Present Illness: organism noted still awaiting identification of one organism patient post op from debridement no issues wound cx noted - Current Medication List Current Medications: Active Medications Acetaminophen (Tylenol -) 650 mg PO Q6H PRN PRN Reason: PAIN LEVEL 1-5 OR FEVER Amino Acids (Prosource No Carb Liquid Pkt) 30 ml PO BID@0800,1730 [facility] Last Admin: 05/21/18 09:09 Dose: Not Given Apixaban (Eliquis -) 2.5 mg PO BID [facility] Last Admin: 05/21/18 09:07 Dose: Not Given Ascorbic Acid (Vitamin C -) 500 mg PO DAILY [facility] Last Admin: 05/21/18 09:08 Dose: Not Given Bacitracin (Bacitracin -) 1 applic TP BID [facility] Last Admin: 05/21/18 09:07 Dose: 1 applic Bisacodyl (Dulcolax -) 5 mg PO DAILY [facility] Last Admin: 05/21/18 09:07 Dose: Not Given Collagenase (Santyl -) 1 applic TP DAILY [facility]; Protocol Last Admin: 05/21/18 09:05 Dose: 1 applic Collagenase (Santyl -) 1 applic TP BID [facility]; Protocol Last Admin: 05/21/18 09:06 Dose: Not Given Fentanyl (Sublimaze Injection -) 25 mcg IVPUSH [id number] PRN PRN Reason: PAIN-PACU ORDER X 4 DOSES ONLY Ferrous Sulfate (Feosol -) 325 mg PO DAILY [facility] Last Admin: 05/21/18 09:07 Dose: Not Given Piperacillin Sod/Tazobactam (Sod 2.25 gm/ Dextrose) 50 mls @ 100 mls/hr IVPB Q8H-IV [facility]; Protocol Last Admin: 05/21/18 09:15 Dose: 100 mls/hr Sodium Chloride (Normal Saline -) 1,000 mls @ 100 mls/hr IV ASDIR [facility] Last Admin: 05/21/18 09:06 Dose: 100 mls/hr Lactated Ringer's (Lactated Ringers Solution) 1,000 mls @ 75 mls/hr IV ASDIR [facility] Insulin Aspart (Novolog Vial Sliding Scale -) 1 vial SQ ACHS [facility]; Protocol Last Admin: 05/21/18 10:14 Dose: Not Given Insulin Detemir (Levemir Vial) 12 units SQ DAILY@0700 [facility] Last Admin: 05/21/18 06:15 Dose: Not Given Lorazepam (Ativan -) 0.5 mg PO BID [facility] Last Admin: 05/21/18 09:07 Dose: Not Given Multivitamins/Minerals (Theragran-M) 1 each PO DAILY [facility] Last Admin: 05/21/18 09:08 Dose: Not Given Ondansetron HCl (Zofran Injection) 4 mg IVPUSH Q6H PRN PRN Reason: NAUSEA AND/OR VOMITING Oxycodone HCl (Roxicodone -) 5 mg PO Q4H PRN PRN Reason: PAIN LEVEL 1-5 Stop: 05/22/18 15:31 Polyethylene Glycol (Miralax (For Daily Use) -) 17 gm PO BID [facility] Last Admin: 05/21/18 09:08 Dose: Not Given Promethazine HCl (Phenergan Injection -) 12.5 mg IVPUSH Q6H PRN PRN Reason: NAUSEA-FOR RESCUE AFTER 15 MIN Propranolol HCl (Inderal -) 40 mg PO BID [facility] Last Admin: 05/21/18 09:06 Dose: 40 mg Risperidone (Risperdal -) 0.25 mg PO BID [facility] Last Admin: 05/21/18 09:08 Dose: Not Given Senna (Senna Oral Solution -) 13.2 mg PO HS [facility] Last Admin: 05/20/18 21:11 Dose: 13.2 mg - Objective Vital Signs: Vital Signs Temperature 98.7 F 05/21/18 12:52 Pulse Rate 73 05/21/18 12:52 Respiratory Rate 20 05/21/18 10:00 Blood Pressure 108/49 L 05/21/18 12:52 O2 Sat by Pulse Oximetry (%) 96 05/21/18 09:00 Constitutional: Yes: No Distress, Calm Cardiovascular: Yes: Regular Rate and Rhythm Respiratory: Yes: Regular, CTA Bilaterally Gastrointestinal: Yes: Normal Bowel Sounds, Soft Musculoskeletal: Yes: WNL, Other Integumentary: Yes: Other Wound/Incision: Yes: Other (as described) Psychiatric: Yes: Alert Labs: CBC, BMP 05/21/18 06:18 05/21/18 06:18 Assessment/Plan Problem List - Problems (1) Sepsis Code(s): A41.9 - SEPSIS, UNSPECIFIED ORGANISM (2) Pressure ulcer Code(s): L89.90 - PRESSURE ULCER OF UNSPECIFIED SITE, UNSPECIFIED STAGE Qualifiers: Pressure injury location: sacral region Pressure injury stage: stage 4 Qualified Code(s): L89.154 - Pressure ulcer of sacral region, stage 4 (3) Multiple open wounds Code(s): T07.XXXA - UNSPECIFIED MULTIPLE INJURIES, INITIAL ENCOUNTER (4) AMILCAR (acute kidney injury) Code(s): N17.9 - ACUTE KIDNEY FAILURE, UNSPECIFIED (5) Transaminitis Code(s): R74.0 - NONSPEC ELEV OF LEVELS OF TRANSAMNS & LACTIC ACID DEHYDRGNSE (6) HTN (hypertension) Code(s): I10 - ESSENTIAL (PRIMARY) HYPERTENSION Qualifiers: Hypertension type: essential hypertension Qualified Code(s): I10 - Essential (primary) hypertension (7) Diabetes Code(s): E11.9 - TYPE 2 DIABETES MELLITUS WITHOUT COMPLICATIONS Qualifiers: Diabetes mellitus type: type 2 Diabetes mellitus alf insulin use: with alf use Diabetes mellitus complication status: with skin complications Diabetes mellitus complication detail: with foot ulcer Qualified Code(s): E11.621 - Type 2 diabetes mellitus with foot ulcer; L97.509 - Non-pressure chronic ulcer of other part of unspecified foot with unspecified severity; Z79.4 - intermediate project manager (current) use of insulin (8) CKD (chronic kidney disease) Code(s): N18.9 - CHRONIC KIDNEY DISEASE, UNSPECIFIED Qualifiers: Chronic kidney disease stage: stage 2 (mild) Qualified Code(s): N18.2 - Chronic kidney disease, stage 2 (mild) (9) Anemia Code(s): D64.9 - ANEMIA, UNSPECIFIED Qualifiers: Chronic kidney disease stage: stage 3 (moderate) (10) Bipolar 1 disorder Code(s): F31.9 - BIPOLAR DISORDER, UNSPECIFIED (11) History of DVT (deep vein thrombosis) Code(s): Z86.718 - PERSONAL HISTORY OF OTHER VENOUS THROMBOSIS AND EMBOLISM (12) Bacteremia Code(s): R78.81 - BACTEREMIA plan await for identification of bacteria continue zosyn await for sensitivities continue supportive care wound care rest as per the team
[2018-05-21] MEDS ORDERED: SODIUM CHLORIDE 0.9% 1000 ML INFUS.BAG IV ONE (16:03)
[2018-05-21] MEDS: LACTATED RINGERS SOLUTION 1,000 ML IV SCH (17:22)
[2018-05-21] MEDS ORDERED: PT OWN MED DRAWER 7, Y5N ONE (20:54)
[2018-05-21] MEDS: SENNOSIDES 8.8 MG/5 ML BULK BOTTLE PO SCH (21:06)
[2018-05-22] MEDS ORDERED: PIPERACILLIN/TAZOBACTAM 2.25 GM VIAL IVPB ONE ×3 (02:31→21:45)
[2018-05-22] MEDS ORDERED: DEXTROSE 5%-WATER - 50 ML IVPB ONE ×3 (02:31→21:45)
[2018-05-22] MEDS: PIPERACILLIN/TAZOB 2.25 GM 2.25 GM in DEXTROSE 5%-WATER - 50 ML IVPB SCH ×3 (02:41→21:49)
[2018-05-22] MEDS: SODIUM CHLORIDE 1,000 ML IV SCH ×2 (02:41→20:55)
[2018-05-22] MEDS ORDERED: PT OWN MED DRAWER 7, Y5N ONE ×4 (05:34→21:45)
[2018-05-22] MEDS: INSULIN (LEVEMIR) 100 UNITS/ML UNITS SQ SCH (06:31)
[2018-05-22] MEDS: INSULIN SLIDING SCALE (NOVOLOG) 1 VIAL SQ SCH ×4 (06:32→21:51)
[2018-05-22 08:09] LABS: BASO % 0.7 % (0-2.0); EOS % 3.3 % (0-4.5); HEMATOCRIT 24.7 % (32.4-45.2); HEMOGLOBIN 7.7 GM/dL (10.7-15.3); LYMPH % 18.2 % (8-40); MCH 29.2 pg (25.7-33.7); MCHC 31.4 g/dl (32.0-36.0); MEAN PLT VOLUME 7.7 fl (7.5-11.1); MONO % 8.1 % (3.8-10.2); NEUT % 69.7 % (42.8-82.8); PLATELET COUNT 388 K/MM3 (134-434); RBC 2.65 M/mm3 (3.60-5.2); WHITE BLOOD COUNT 7.1 K/mm3 (4.0-10.0)
[2018-05-22] MEDS: risperiDONE 0.25 MG TABLET (FP) PO SCH ×2 (09:05→21:50)
[2018-05-22] MEDS: AMINO ACIDS/PROTEIN HYDROLYS 30 ML LIQUID.PKT PO SCH ×2 (09:06→16:31)
[2018-05-22] MEDS: MULTIVITAMINS THER W-MINERALS COMBO TABLET (FP) PO SCH (09:07)
[2018-05-22] MEDS: FERROUS SO4 325 MG TABLET (FP) PO SCH (09:07)
[2018-05-22] MEDS: ASCORBIC ACID 500 MG TABLET (FP) PO SCH (09:07)
[2018-05-22] MEDS: APIXABAN 2.5 MG TABLET PO SCH ×2 (09:07→21:49)
[2018-05-22] MEDS: BISACODYL 5 MG TABLET.DR (FP) PO SCH (09:07)
[2018-05-22] MEDS: POLYETHYLENE GLYCOL 3350 119 GM BTL PO SCH ×2 (09:07→21:50)
[2018-05-22 09:11] LABS: ALBUMIN 1.4 g/dl (3.4-5.0); ALK PHOS 133 U/L (45-117); ANION GAP 10 MMOL/L (8-16); BILIRUBIN,TOTAL 0.3 mg/dL (0.2-1); BLOOD UREA NITROGEN 21 mg/dL (7-18); CALCIUM 7.7 mg/dL (8.5-10.1); CHLORIDE 118 mmol/L (98-107); CO2 16 mmol/L (21-32); CREATININE 1.1 mg/dL (0.55-1.3); GLUCOSE,RANDOM 119 mg/dL (74-106); POTASSIUM 4.3 mmol/L (3.5-5.1); SGOT/AST 33 U/L (15-37); SGPT/ALT 47 U/L (13-61); SODIUM 144 mmol/L (136-145); TOT PROT 4.8 g/dl (6.4-8.2)
[2018-05-22] MEDS: LORazepam 0.5 MG TABLET PO SCH ×2 (09:12→21:49)
--- NOTE | 2018-05-22 11:47 | PN ---
Progress Note (short form) - Note Progress Note: ANESTHESIOLOGY POST-OP CHECK 73F s/p sacral debridement under sedation, POD #1. No acute complaints. Denies N/V. Pain 0/10 and tolerable. Vital Signs Temperature 99.8 F H 05/22/18 05:30 Pulse Rate 76 05/22/18 05:30 Respiratory Rate 18 05/22/18 05:30 Blood Pressure 117/52 L 05/22/18 05:30 O2 Sat by Pulse Oximetry (%) 100 05/21/18 20:42 Active Medications Acetaminophen (Tylenol -) 650 mg PO Q6H PRN PRN Reason: PAIN LEVEL 1-5 Amino Acids (Prosource No Carb Liquid Pkt) 30 ml PO BID@0800,1730 [facility] Last Admin: 05/22/18 09:06 Dose: 30 ml Apixaban (Eliquis -) 2.5 mg PO BID [facility] Last Admin: 05/22/18 09:07 Dose: 2.5 mg Ascorbic Acid (Vitamin C -) 500 mg PO DAILY [facility] Last Admin: 05/22/18 09:07 Dose: 500 mg Bacitracin (Bacitracin -) 1 applic TP BID [facility] Last Admin: 05/21/18 21:05 Dose: 1 applic Bisacodyl (Dulcolax -) 5 mg PO DAILY [facility] Last Admin: 05/22/18 09:07 Dose: 5 mg Collagenase (Santyl -) 1 applic TP DAILY [facility]; Protocol Collagenase (Santyl -) 1 applic TP BID [facility]; Protocol Last Admin: 05/21/18 21:07 Dose: 1 applic Ferrous Sulfate (Feosol -) 325 mg PO DAILY [facility] Last Admin: 05/22/18 09:07 Dose: 325 mg Lactated Ringer's (Lactated Ringers Solution) 1,000 mls @ 75 mls/hr IV ASDIR [facility] Last Admin: 05/21/18 17:22 Dose: Not Given Sodium Chloride (Normal Saline -) 1,000 mls @ 100 mls/hr IV ASDIR [facility] Last Admin: 05/22/18 02:41 Dose: 100 mls/hr Piperacillin Sod/Tazobactam (Sod 2.25 gm/ Dextrose) 50 mls @ 100 mls/hr IVPB Q8H-IV [facility]; Protocol Last Admin: 05/22/18 09:06 Dose: 100 mls/hr Insulin Aspart (Novolog Vial Sliding Scale -) 1 vial SQ [facility]; Protocol Last Admin: 05/22/18 06:32 Dose: Not Given Insulin Detemir (Levemir Vial) 12 units SQ DAILY@0700 [facility] Last Admin: 05/22/18 06:31 Dose: 12 units Lorazepam (Ativan -) 0.5 mg PO BID [facility] Last Admin: 05/22/18 09:12 Dose: 0.5 mg Multivitamins/Minerals (Theragran-M) 1 each PO DAILY [facility] Last Admin: 05/22/18 09:07 Dose: 1 each Ondansetron HCl (Zofran Injection) 4 mg IVPUSH Q6H PRN PRN Reason: NAUSEA AND/OR VOMITING Oxycodone HCl (Roxicodone -) 5 mg PO Q4H PRN PRN Reason: PAIN LEVEL 1-5 Stop: 05/22/18 15:31 Last Admin: 05/21/18 17:27 Dose: 5 mg Polyethylene Glycol (Miralax (For Daily Use) -) 17 gm PO BID [facility] Last Admin: 05/22/18 09:07 Dose: 17 grams Promethazine HCl (Phenergan Injection -) 12.5 mg IVPUSH Q6H PRN PRN Reason: NAUSEA-FOR RESCUE AFTER 15 MIN Propranolol HCl (Inderal -) 40 mg PO BID [facility] Last Admin: 05/22/18 09:12 Dose: Not Given Risperidone (Risperdal -) 0.25 mg PO BID [facility] Last Admin: 05/22/18 09:05 Dose: 0.25 mg Senna (Senna Oral Solution -) 13.2 mg PO [facility] Last Admin: 05/21/18 21:06 Dose: 13.2 mg Gen: Awake, alert, no apparent distress No apparent anesthesia complications. Pain controlled. Continue management as per primary team.
[2018-05-22] MEDS: COLLAGENASE CLOSTRIDIUM HIST. 30 GRAMS TUBE TP SCH ×3 (12:06→21:51)
[2018-05-22] MEDS: BACITRACIN 15 GM TUBE TOPICAL OINTMENT TP SCH ×2 (12:06→21:48)
--- NOTE | 2018-05-22 12:49 | PN ---
Progress Note, Physician History of Present Illness: no complaints echo normal comfortable - Current Medication List Current Medications: Active Medications Acetaminophen (Tylenol -) 650 mg PO Q6H PRN PRN Reason: PAIN LEVEL 1-5 Amino Acids (Prosource No Carb Liquid Pkt) 30 ml PO BID@0800,1730 [facility] Last Admin: 05/22/18 09:06 Dose: 30 ml Apixaban (Eliquis -) 2.5 mg PO BID [facility] Last Admin: 05/22/18 09:07 Dose: 2.5 mg Ascorbic Acid (Vitamin C -) 500 mg PO DAILY [facility] Last Admin: 05/22/18 09:07 Dose: 500 mg Bacitracin (Bacitracin -) 1 applic TP BID [facility] Last Admin: 05/22/18 12:06 Dose: 1 applic Bisacodyl (Dulcolax -) 5 mg PO DAILY [facility] Last Admin: 05/22/18 09:07 Dose: 5 mg Collagenase (Santyl -) 1 applic TP DAILY [facility]; Protocol Last Admin: 05/22/18 12:06 Dose: 1 applic Collagenase (Santyl -) 1 applic TP BID [facility]; Protocol Last Admin: 05/22/18 12:06 Dose: 1 applic Ferrous Sulfate (Feosol -) 325 mg PO DAILY [facility] Last Admin: 05/22/18 09:07 Dose: 325 mg Lactated Ringer's (Lactated Ringers Solution) 1,000 mls @ 75 mls/hr IV ASDIR [facility] Last Admin: 05/21/18 17:22 Dose: Not Given Sodium Chloride (Normal Saline -) 1,000 mls @ 100 mls/hr IV ASDIR [facility] Last Admin: 05/22/18 02:41 Dose: 100 mls/hr Piperacillin Sod/Tazobactam (Sod 2.25 gm/ Dextrose) 50 mls @ 100 mls/hr IVPB Q8H-IV [facility]; Protocol Last Admin: 05/22/18 09:06 Dose: 100 mls/hr Insulin Aspart (Novolog Vial Sliding Scale -) 1 vial SQ ACHS [facility]; Protocol Last Admin: 05/22/18 12:05 Dose: 3 units Insulin Detemir (Levemir Vial) 12 units SQ DAILY@0700 [facility] Last Admin: 05/22/18 06:31 Dose: 12 units Lorazepam (Ativan -) 0.5 mg PO BID [facility] Last Admin: 05/22/18 09:12 Dose: 0.5 mg Multivitamins/Minerals (Theragran-M) 1 each PO DAILY [facility] Last Admin: 05/22/18 09:07 Dose: 1 each Ondansetron HCl (Zofran Injection) 4 mg IVPUSH Q6H PRN PRN Reason: NAUSEA AND/OR VOMITING Oxycodone HCl (Roxicodone -) 5 mg PO Q4H PRN PRN Reason: PAIN LEVEL 1-5 Stop: 05/22/18 15:31 Last Admin: 05/21/18 17:27 Dose: 5 mg Polyethylene Glycol (Miralax (For Daily Use) -) 17 gm PO BID [facility] Last Admin: 05/22/18 09:07 Dose: 17 grams Promethazine HCl (Phenergan Injection -) 12.5 mg IVPUSH Q6H PRN PRN Reason: NAUSEA-FOR RESCUE AFTER 15 MIN Propranolol HCl (Inderal -) 40 mg PO BID [facility] Last Admin: 05/22/18 09:12 Dose: Not Given Risperidone (Risperdal -) 0.25 mg PO BID [facility] Last Admin: 05/22/18 09:05 Dose: 0.25 mg Senna (Senna Oral Solution -) 13.2 mg PO HS [facility] Last Admin: 05/21/18 21:06 Dose: 13.2 mg - Objective Vital Signs: Vital Signs Temperature 99.8 F H 05/22/18 05:30 Pulse Rate 76 05/22/18 05:30 Respiratory Rate 18 05/22/18 05:30 Blood Pressure 117/52 L 05/22/18 05:30 O2 Sat by Pulse Oximetry (%) 100 05/21/18 20:42 Constitutional: Yes: No Distress, Calm Cardiovascular: Yes: Regular Rate and Rhythm Respiratory: Yes: Regular, CTA Bilaterally Gastrointestinal: Yes: Normal Bowel Sounds, Soft Musculoskeletal: Yes: WNL Extremities: Yes: Other Wound/Incision: Yes: Other (as described) Neurological: Yes: Alert, Oriented Psychiatric: Yes: Alert Labs: CBC, BMP 05/22/18 07:30 05/22/18 07:30 Assessment/Plan Problem List - Problems (1) Sepsis Code(s): A41.9 - SEPSIS, UNSPECIFIED ORGANISM (2) Pressure ulcer Code(s): L89.90 - PRESSURE ULCER OF UNSPECIFIED SITE, UNSPECIFIED STAGE Qualifiers: Pressure injury location: sacral region Pressure injury stage: stage 4 Qualified Code(s): L89.154 - Pressure ulcer of sacral region, stage 4 (3) Multiple open wounds Code(s): T07.XXXA - UNSPECIFIED MULTIPLE INJURIES, INITIAL ENCOUNTER (4) AMILCAR (acute kidney injury) Code(s): N17.9 - ACUTE KIDNEY FAILURE, UNSPECIFIED (5) Transaminitis Code(s): R74.0 - NONSPEC ELEV OF LEVELS OF TRANSAMNS & LACTIC ACID DEHYDRGNSE (6) HTN (hypertension) Code(s): I10 - ESSENTIAL (PRIMARY) HYPERTENSION Qualifiers: Hypertension type: essential hypertension Qualified Code(s): I10 - Essential (primary) hypertension (7) Diabetes Code(s): E11.9 - TYPE 2 DIABETES MELLITUS WITHOUT COMPLICATIONS Qualifiers: Diabetes mellitus type: type 2 Diabetes mellitus [facility] insulin use: with [facility] [place] use Diabetes mellitus complication status: with skin complications Diabetes mellitus complication detail: with foot ulcer Qualified Code(s): E11.621 - Type 2 diabetes mellitus with foot ulcer; L97.509 - Non-pressure chronic ulcer of other part of unspecified foot with unspecified severity; Z79.4 - prison (current) use of insulin (8) CKD (chronic kidney disease) Code(s): N18.9 - CHRONIC KIDNEY DISEASE, UNSPECIFIED Qualifiers: Chronic kidney disease stage: stage 2 (mild) Qualified Code(s): N18.2 - Chronic kidney disease, stage 2 (mild) (9) Anemia Code(s): D64.9 - ANEMIA, UNSPECIFIED Qualifiers: Chronic kidney disease stage: stage 3 (moderate) (10) Bipolar 1 disorder Code(s): F31.9 - BIPOLAR DISORDER, UNSPECIFIED (11) History of DVT (deep vein thrombosis) Code(s): Z86.718 - PERSONAL HISTORY OF OTHER VENOUS THROMBOSIS AND EMBOLISM (12) Bacteremia Code(s): R78.81 - BACTEREMIA (13) Acute blood loss anemia Code(s): D62 - ACUTE POSTHEMORRHAGIC ANEMIA plan continue current mgmt wound cx reports noted repeat cx awaited continue zosyn rest as per the team
--- NOTE | 2018-05-22 13:07 | PN ---
Progress Note, Physician Chief Complaint: Pt lying in bed in no acute distress. currently denies any chest pain, sob, n/v/ d - Current Medication List Current Medications: Active Medications Acetaminophen (Tylenol -) 650 mg PO Q6H PRN PRN Reason: PAIN LEVEL 1-5 Amino Acids (Prosource No Carb Liquid Pkt) 30 ml PO BID@0800,1730 [facility] Last Admin: 05/22/18 09:06 Dose: 30 ml Apixaban (Eliquis -) 2.5 mg PO BID [facility] Last Admin: 05/22/18 09:07 Dose: 2.5 mg Ascorbic Acid (Vitamin C -) 500 mg PO DAILY [facility] Last Admin: 05/22/18 09:07 Dose: 500 mg Bacitracin (Bacitracin -) 1 applic TP BID [facility] Last Admin: 05/22/18 12:06 Dose: 1 applic Bisacodyl (Dulcolax -) 5 mg PO DAILY [facility] Last Admin: 05/22/18 09:07 Dose: 5 mg Collagenase (Santyl -) 1 applic TP DAILY [facility]; Protocol Last Admin: 05/22/18 12:06 Dose: 1 applic Collagenase (Santyl -) 1 applic TP BID [facility]; Protocol Last Admin: 05/22/18 12:06 Dose: 1 applic Ferrous Sulfate (Feosol -) 325 mg PO DAILY [facility] Last Admin: 05/22/18 09:07 Dose: 325 mg Lactated Ringer's (Lactated Ringers Solution) 1,000 mls @ 75 mls/hr IV ASDIR [facility] Last Admin: 05/21/18 17:22 Dose: Not Given Sodium Chloride (Normal Saline -) 1,000 mls @ 100 mls/hr IV ASDIR [facility] Last Admin: 05/22/18 02:41 Dose: 100 mls/hr Piperacillin Sod/Tazobactam (Sod 2.25 gm/ Dextrose) 50 mls @ 100 mls/hr IVPB Q8H-IV [facility]; Protocol Last Admin: 05/22/18 09:06 Dose: 100 mls/hr Insulin Aspart (Novolog Vial Sliding Scale -) 1 vial SQ ACHS [facility]; Protocol Last Admin: 05/22/18 12:05 Dose: 3 units Insulin Detemir (Levemir Vial) 12 units SQ DAILY@0700 [facility] Last Admin: 05/22/18 06:31 Dose: 12 units Lorazepam (Ativan -) 0.5 mg PO BID [facility] Last Admin: 05/22/18 09:12 Dose: 0.5 mg Multivitamins/Minerals (Theragran-M) 1 each PO DAILY [facility] Last Admin: 05/22/18 09:07 Dose: 1 each Ondansetron HCl (Zofran Injection) 4 mg IVPUSH Q6H PRN PRN Reason: NAUSEA AND/OR VOMITING Oxycodone HCl (Roxicodone -) 5 mg PO Q4H PRN PRN Reason: PAIN LEVEL 1-5 Stop: 05/22/18 15:31 Last Admin: 05/21/18 17:27 Dose: 5 mg Polyethylene Glycol (Miralax (For Daily Use) -) 17 gm PO BID [facility] Last Admin: 05/22/18 09:07 Dose: 17 grams Promethazine HCl (Phenergan Injection -) 12.5 mg IVPUSH Q6H PRN PRN Reason: NAUSEA-FOR RESCUE AFTER 15 MIN Propranolol HCl (Inderal -) 40 mg PO BID [facility] Last Admin: 05/22/18 09:12 Dose: Not Given Risperidone (Risperdal -) 0.25 mg PO BID [facility] Last Admin: 05/22/18 09:05 Dose: 0.25 mg Senna (Senna Oral Solution -) 13.2 mg PO HS [facility] Last Admin: 05/21/18 21:06 Dose: 13.2 mg - Objective Vital Signs: Vital Signs Temperature 99.8 F H 05/22/18 05:30 Pulse Rate 76 05/22/18 05:30 Respiratory Rate 18 05/22/18 05:30 Blood Pressure 117/52 L 05/22/18 05:30 O2 Sat by Pulse Oximetry (%) 100 05/21/18 20:42 Constitutional: Yes: Well Nourished, No Distress Cardiovascular: Yes: Regular Rate and Rhythm Respiratory: Yes: Regular, CTA Bilaterally. No: Accessory Muscle Use, Tachypnea , Wheezes Gastrointestinal: Yes: WNL, Normal Bowel Sounds, Soft. No: Distention, Tenderness Genitourinary: Yes: Incontinence Edema: Yes Edema: LLE: Trace, RLE: Trace Integumentary: Yes: Pressure Ulcer Wound/Incision: Yes: Dressing Dry and Intact Neurological: Yes: WNL, Alert, Oriented Psychiatric: Yes: Alert, Oriented Labs: CBC, BMP 05/22/18 07:30 05/22/18 07:30 Problem List - Problems (1) Sepsis Code(s): A41.9 - SEPSIS, UNSPECIFIED ORGANISM (2) Pressure ulcer Code(s): L89.90 - PRESSURE ULCER OF UNSPECIFIED SITE, UNSPECIFIED STAGE Qualifiers: Pressure injury location: sacral region Pressure injury stage: stage 4 Qualified Code(s): L89.154 - Pressure ulcer of sacral region, stage 4 (3) Multiple open wounds Code(s): T07.XXXA - UNSPECIFIED MULTIPLE INJURIES, INITIAL ENCOUNTER (4) AMILCAR (acute kidney injury) Code(s): N17.9 - ACUTE KIDNEY FAILURE, UNSPECIFIED (5) Transaminitis Code(s): R74.0 - NONSPEC ELEV OF LEVELS OF TRANSAMNS & LACTIC ACID DEHYDRGNSE (6) HTN (hypertension) Code(s): I10 - ESSENTIAL (PRIMARY) HYPERTENSION Qualifiers: Hypertension type: essential hypertension Qualified Code(s): I10 - Essential (primary) hypertension (7) Diabetes Code(s): E11.9 - TYPE 2 DIABETES MELLITUS WITHOUT COMPLICATIONS Qualifiers: Diabetes mellitus type: type 2 Diabetes mellitus terminal system operator insulin use: with terminal system operator use Diabetes mellitus complication status: with skin complications Diabetes mellitus complication detail: with foot ulcer Qualified Code(s): E11.621 - Type 2 diabetes mellitus with foot ulcer; L97.509 - Non-pressure chronic ulcer of other part of unspecified foot with unspecified severity; 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.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 (8) CKD (chronic kidney disease) Code(s): N18.9 - CHRONIC KIDNEY DISEASE, UNSPECIFIED Qualifiers: Chronic kidney disease stage: stage 2 (mild) Qualified Code(s): N18.2 - Chronic kidney disease, stage 2 (mild) (9) Anemia Code(s): D64.9 - ANEMIA, UNSPECIFIED Qualifiers: Chronic kidney disease stage: stage 3 (moderate) (10) Bipolar 1 disorder Code(s): F31.9 - BIPOLAR DISORDER, UNSPECIFIED (11) History of DVT (deep vein thrombosis) Code(s): Z86.718 - PERSONAL HISTORY OF OTHER VENOUS THROMBOSIS AND EMBOLISM (12) Bacteremia Code(s): R78.81 - BACTEREMIA (13) Acute blood loss anemia Code(s): D62 - ACUTE POSTHEMORRHAGIC ANEMIA Assessment/Plan (1) Sepsis Assessment/Plan: improving blood cultures positive 2/- grew ecoli deep wound pressure ulcers- source of infection IVF Zosyn day 2 echo w/out signs of endocarditis ID following close monitoring Code(s): A41.9 - SEPSIS, UNSPECIFIED ORGANISM (2) Pressure ulcer Assessment/Plan: sacral stage 4, b/l heels unstageable, b/l buttocks-stage 2 s/p debridement wound culture grew ecoli, vre as above vascular consulted Code(s): L89.90 - PRESSURE ULCER OF UNSPECIFIED SITE, UNSPECIFIED STAGE Qualifiers: Pressure injury location: sacral region Pressure injury stage: stage 4 Qualified Code(s): L89.154 - Pressure ulcer of sacral region, stage 4 (3) Multiple open wounds Assessment/Plan: as above Code(s): T07.XXXA - UNSPECIFIED MULTIPLE INJURIES, INITIAL ENCOUNTER (4) AMILCAR (acute kidney injury) Assessment/Plan: resolved Code(s): N17.9 - ACUTE KIDNEY FAILURE, UNSPECIFIED (5) Transaminitis Assessment/Plan: improved Code(s): R74.0 - NONSPEC ELEV OF LEVELS OF TRANSAMNS & LACTIC ACID DEHYDRGNSE (6) HTN (hypertension) Assessment/Plan: controlled, tends to be low here continue propanolol Code(s): I10 - ESSENTIAL (PRIMARY) HYPERTENSION Qualifiers: Hypertension type: essential hypertension Qualified Code(s): I10 - Essential (primary) hypertension (7) Diabetes Assessment/Plan: w/ multiple complications ckd, ulcers treated in SNF for uti- repeat UA/UC bgm, insulin sliding scale levemir Code(s): E11.9 - TYPE 2 DIABETES MELLITUS WITHOUT COMPLICATIONS Qualifiers: Diabetes mellitus type: type 2 Diabetes mellitus terminal system operator insulin use: with terminal system operator use Diabetes mellitus complication status: with skin complications Diabetes mellitus complication detail: with foot ulcer Qualified Code(s): E11.621 - Type 2 diabetes mellitus with foot ulcer; L97.509 - Non-pressure chronic ulcer of other part of unspecified foot with unspecified severity; Z79.4 - [facility] (current) use of insulin (8) CKD (chronic kidney disease) Assessment/Plan: baseline cr 1.3 per records Code(s): N18.9 - CHRONIC KIDNEY DISEASE, UNSPECIFIED Qualifiers: Chronic kidney disease stage: stage 2 (mild) Qualified Code(s): N18.2 - Chronic kidney disease, stage 2 (mild) (9) Anemia Assessment/Plan: hg/hct stable iron level low/tibc low/hemeoccult neg suspect 2/2 ckd/chronic disease continue po iron monitor Code(s): D64.9 - ANEMIA, UNSPECIFIED Qualifiers: Chronic kidney disease stage: stage 3 (moderate) (10) Bipolar 1 disorder Assessment/Plan: stable continue risperidone Code(s): F31.9 - BIPOLAR DISORDER, UNSPECIFIED (11) History of DVT (deep vein thrombosis) Assessment/Plan: anticoagulated on eliquis Code(s): Z86.718 - PERSONAL HISTORY OF OTHER VENOUS THROMBOSIS AND EMBOLISM (12) Acute blood loss anemia Assessment/Plan: Hg7.7, asymptomatic 1unit prbcs ordered Code(s): D62 - ACUTE POSTHEMORRHAGIC ANEMIA Dispo: SNF
[2018-05-22] MEDS: LACTATED RINGERS SOLUTION 1,000 ML IV SCH (16:24)
[2018-05-22] MEDS: SENNOSIDES 8.8 MG/5 ML BULK BOTTLE PO SCH (21:50)
[2018-05-23] MEDS ORDERED: PIPERACILLIN/TAZOBACTAM 2.25 GM VIAL IVPB ONE ×2 (02:07→09:17)
[2018-05-23] MEDS ORDERED: DEXTROSE 5%-WATER - 50 ML IVPB ONE ×3 (02:08→17:14)
[2018-05-23] MEDS: PIPERACILLIN/TAZOB 2.25 GM 2.25 GM in DEXTROSE 5%-WATER - 50 ML IVPB SCH ×2 (03:47→09:24)
[2018-05-23 05:53] LABS: BASO % 0.4 % (0-2.0); EOS % 1.9 % (0-4.5); HEMATOCRIT 31.9 % (32.4-45.2); HEMOGLOBIN 10.2 GM/dL (10.7-15.3); LYMPH % 19.8 % (8-40); MCHC 31.8 g/dl (32.0-36.0); MEAN CELL VOLUME 91.1 fl (80-96); MEAN PLT VOLUME 7.5 fl (7.5-11.1); MONO % 8.1 % (3.8-10.2); NEUT % 69.8 % (42.8-82.8); PLATELET COUNT 381 K/MM3 (134-434); RBC 3.51 M/mm3 (3.60-5.2); RDW 15.9 % (11.6-15.6); WHITE BLOOD COUNT 6.4 K/mm3 (4.0-10.0)
[2018-05-23] MEDS: INSULIN SLIDING SCALE (NOVOLOG) 1 VIAL SQ SCH ×4 (06:32→21:18)
[2018-05-23 06:35] LABS: ANION GAP 11 MMOL/L (8-16); BLOOD UREA NITROGEN 24 mg/dL (7-18); CALCIUM 8.4 mg/dL (8.5-10.1); CHLORIDE 120 mmol/L (98-107); CO2 15 mmol/L (21-32); CREATININE 1.2 mg/dL (0.55-1.3); GLUCOSE,RANDOM 80 mg/dL (74-106); MAGNESIUM 1.9 mg/dL (1.8-2.4); POTASSIUM 3.6 mmol/L (3.5-5.1); SODIUM 146 mmol/L (136-145)
--- NOTE | 2018-05-23 09:16 | PN ---
Progress Note, Physician Chief Complaint: reamined at base line - Current Medication List Current Medications: Active Medications Acetaminophen (Tylenol -) 650 mg PO Q6H PRN PRN Reason: PAIN LEVEL 1-5 Amino Acids (Prosource No Carb Liquid Pkt) 30 ml PO BID@0800,1730 [facility] Last Admin: 05/22/18 16:31 Dose: 30 ml Apixaban (Eliquis -) 2.5 mg PO BID [facility] Last Admin: 05/22/18 21:49 Dose: 2.5 mg Ascorbic Acid (Vitamin C -) 500 mg PO DAILY [facility] Last Admin: 05/22/18 09:07 Dose: 500 mg Bacitracin (Bacitracin -) 1 applic TP BID [facility] Last Admin: 05/22/18 21:48 Dose: 1 applic Bisacodyl (Dulcolax -) 5 mg PO DAILY [facility] Last Admin: 05/22/18 09:07 Dose: 5 mg Collagenase (Santyl -) 1 applic TP DAILY [facility]; Protocol Last Admin: 05/22/18 12:06 Dose: 1 applic Collagenase (Santyl -) 1 applic TP BID [facility]; Protocol Last Admin: 05/22/18 21:51 Dose: 1 applic Ferrous Sulfate (Feosol -) 325 mg PO DAILY [facility] Last Admin: 05/22/18 09:07 Dose: 325 mg Lactated Ringer's (Lactated Ringers Solution) 1,000 mls @ 75 mls/hr IV ASDIR [facility] Last Admin: 05/22/18 16:24 Dose: Not Given Sodium Chloride (Normal Saline -) 1,000 mls @ 100 mls/hr IV ASDIR [facility] Last Admin: 05/22/18 20:55 Dose: 100 mls/hr Piperacillin Sod/Tazobactam (Sod 2.25 gm/ Dextrose) 50 mls @ 100 mls/hr IVPB Q8H-IV [facility]; Protocol Last Admin: 05/23/18 03:47 Dose: 100 mls/hr Insulin Aspart (Novolog Vial Sliding Scale -) 1 vial SQ ACHS [facility]; Protocol Last Admin: 05/23/18 06:32 Dose: Not Given Insulin Detemir (Levemir Vial) 12 units SQ DAILY@0700 [facility] Last Admin: 05/22/18 06:31 Dose: 12 units Lorazepam (Ativan -) 0.5 mg PO BID [facility] Last Admin: 05/22/18 21:49 Dose: 0.5 mg Multivitamins/Minerals (Theragran-M) 1 each PO DAILY [facility] Last Admin: 05/22/18 09:07 Dose: 1 each Ondansetron HCl (Zofran Injection) 4 mg IVPUSH Q6H PRN PRN Reason: NAUSEA AND/OR VOMITING Polyethylene Glycol (Miralax (For Daily Use) -) 17 gm PO BID [facility] Last Admin: 05/22/18 21:50 Dose: 17 grams Promethazine HCl (Phenergan Injection -) 12.5 mg IVPUSH Q6H PRN PRN Reason: NAUSEA-FOR RESCUE AFTER 15 MIN Propranolol HCl (Inderal -) 40 mg PO BID [facility] Last Admin: 05/22/18 21:50 Dose: 40 mg Risperidone (Risperdal -) 0.25 mg PO BID [facility] Last Admin: 05/22/18 21:50 Dose: 0.25 mg Senna (Senna Oral Solution -) 13.2 mg PO HS [facility] Last Admin: 05/22/18 21:50 Dose: 13.2 mg - Objective Vital Signs: Vital Signs Temperature 97.6 F 05/23/18 08:43 Pulse Rate 71 05/23/18 08:43 Respiratory Rate 18 05/23/18 08:43 Blood Pressure 119/51 L 05/23/18 08:43 O2 Sat by Pulse Oximetry (%) 98 05/22/18 22:00 Constitutional: Yes: Well Nourished, No Distress Cardiovascular: Yes: Regular Rate and Rhythm Respiratory: Yes: Regular, CTA Bilaterally. No: Accessory Muscle Use, Tachypnea , Wheezes Gastrointestinal: Yes: WNL, Normal Bowel Sounds, Soft. No: Distention, Tenderness Genitourinary: Yes: Incontinence Edema: Yes Edema: LLE: Trace, RLE: Trace Integumentary: Yes: Pressure Ulcer Wound/Incision: Yes: Dressing Dry and Intact Neurological: Yes: WNL, Alert, Oriented Psychiatric: Yes: Alert, Oriented Labs: CBC, BMP 05/23/18 05:35 05/23/18 05:35 Microbiology 05/22/18 07:30 Blood - Peripheral Venous Blood Culture - Preliminary NO GROWTH OBTAINED AFTER 24 HOURS, INCUBATION TO CONTINUE FOR 4 DAYS. 05/22/18 07:35 Blood - Peripheral Venous Blood Culture - Preliminary NO GROWTH OBTAINED AFTER 24 HOURS, INCUBATION TO CONTINUE FOR 4 DAYS. 05/19/18 20:10 Buttock - Left Gram Stain - Final 05/19/18 20:10 Buttock - Left Wound Culture - Final Escherichia Coli Vr Ec Faecalis Diphtheroid/Corynebacterium 05/19/18 20:10 Blood - Peripheral Venous Blood Culture - Final Escherichia Coli Problem List - Problems (1) Sepsis Assessment/Plan: multiple Code(s): A41.9 - SEPSIS, UNSPECIFIED ORGANISM (2) Multiple open wounds Code(s): T07.XXXA - UNSPECIFIED MULTIPLE INJURIES, INITIAL ENCOUNTER (3) CKD (chronic kidney disease) Code(s): N18.9 - CHRONIC KIDNEY DISEASE, UNSPECIFIED Qualifiers: Chronic kidney disease stage: stage 2 (mild) Qualified Code(s): N18.2 - Chronic kidney disease, stage 2 (mild) (4) Diabetes Code(s): E11.9 - TYPE 2 DIABETES MELLITUS WITHOUT COMPLICATIONS Qualifiers: Diabetes mellitus type: type 2 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 Diabetes mellitus complication status: with skin complications Diabetes mellitus complication detail: with foot ulcer Qualified Code(s): E11.621 - Type 2 diabetes mellitus with foot ulcer; L97.509 - Non-pressure chronic ulcer of other part of unspecified foot with unspecified severity; 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
[2018-05-23] MEDS: AMINO ACIDS/PROTEIN HYDROLYS 30 ML LIQUID.PKT PO SCH ×2 (09:24→17:19)
[2018-05-23] MEDS: MULTIVITAMINS THER W-MINERALS COMBO TABLET (FP) PO SCH (09:24)
[2018-05-23] MEDS: APIXABAN 2.5 MG TABLET PO SCH ×2 (09:24→21:12)
[2018-05-23] MEDS: ASCORBIC ACID 500 MG TABLET (FP) PO SCH (09:24)
[2018-05-23] MEDS: LORazepam 0.5 MG TABLET PO SCH ×2 (09:24→21:12)
[2018-05-23] MEDS: BACITRACIN 15 GM TUBE TOPICAL OINTMENT TP SCH ×2 (09:24→21:15)
[2018-05-23] MEDS: FERROUS SO4 325 MG TABLET (FP) PO SCH (09:25)
[2018-05-23] MEDS: BISACODYL 5 MG TABLET.DR (FP) PO SCH (09:26)
[2018-05-23] MEDS: COLLAGENASE CLOSTRIDIUM HIST. 30 GRAMS TUBE TP SCH ×3 (09:27→21:15)
[2018-05-23] MEDS ORDERED: PT OWN MED DRAWER 7, Y5N ONE ×3 (09:33→21:07)
[2018-05-23] MEDS: risperiDONE 0.25 MG TABLET (FP) PO SCH ×2 (09:36→21:13)
[2018-05-23] MEDS: POLYETHYLENE GLYCOL 3350 119 GM BTL PO SCH ×2 (09:36→21:12)
[2018-05-23] MEDS: SODIUM CHLORIDE 1,000 ML IV SCH ×3 (11:00→22:42)
[2018-05-23] MEDS ORDERED: INSULIN (NOVOLOG) ASPART 100 UNITS/ML 10ML VIAL ONE ×3 (11:20→21:05)
--- NOTE | 2018-05-23 16:11 | PN ---
Progress Note, Physician History of Present Illness: Pt alert, without acute distress, verbally responsive. Now afebrile. Has no specific complaints. - Current Medication List Current Medications: Active Medications Acetaminophen (Tylenol -) 650 mg PO Q6H PRN PRN Reason: PAIN LEVEL 1-5 Amino Acids (Prosource No Carb Liquid Pkt) 30 ml PO BID@0800,1730 [facility] Last Admin: 05/23/18 09:24 Dose: 30 ml Apixaban (Eliquis -) 2.5 mg PO BID [facility] Last Admin: 05/23/18 09:24 Dose: 2.5 mg Ascorbic Acid (Vitamin C -) 500 mg PO DAILY [facility] Last Admin: 05/23/18 09:24 Dose: 500 mg Bacitracin (Bacitracin -) 1 applic TP BID [facility] Last Admin: 05/23/18 09:24 Dose: 1 applic Bisacodyl (Dulcolax -) 5 mg PO DAILY [facility] Last Admin: 05/23/18 09:26 Dose: 5 mg Collagenase (Santyl -) 1 applic TP DAILY [facility]; Protocol Last Admin: 05/23/18 09:27 Dose: 1 applic Collagenase (Santyl -) 1 applic TP BID [facility]; Protocol Last Admin: 05/23/18 09:27 Dose: 1 applic Ferrous Sulfate (Feosol -) 325 mg PO DAILY [facility] Last Admin: 05/23/18 09:25 Dose: 325 mg Lactated Ringer's (Lactated Ringers Solution) 1,000 mls @ 75 mls/hr IV ASDIR [facility] Last Admin: 05/22/18 16:24 Dose: Not Given Sodium Chloride (Normal Saline -) 1,000 mls @ 100 mls/hr IV ASDIR [facility] Last Admin: 05/23/18 11:05 Dose: 100 mls/hr Piperacillin Sod/Tazobactam (Sod 2.25 gm/ Dextrose) 50 mls @ 100 mls/hr IVPB Q8H-IV [facility]; Protocol Last Admin: 05/23/18 09:24 Dose: 100 mls/hr Insulin Aspart (Novolog Vial Sliding Scale -) 1 vial SQ ACHS [facility]; Protocol Last Admin: 05/23/18 11:23 Dose: 3 units Insulin Detemir (Levemir Vial) 12 units SQ DAILY@0700 [facility] Last Admin: 05/22/18 06:31 Dose: 12 units Lorazepam (Ativan -) 0.5 mg PO BID [facility] Last Admin: 05/23/18 09:24 Dose: 0.5 mg Multivitamins/Minerals (Theragran-M) 1 each PO DAILY [facility] Last Admin: 05/23/18 09:24 Dose: 1 each Ondansetron HCl (Zofran Injection) 4 mg IVPUSH Q6H PRN PRN Reason: NAUSEA AND/OR VOMITING Polyethylene Glycol (Miralax (For Daily Use) -) 17 gm PO BID [facility] Last Admin: 05/23/18 09:36 Dose: 17 grams Promethazine HCl (Phenergan Injection -) 12.5 mg IVPUSH Q6H PRN PRN Reason: NAUSEA-FOR RESCUE AFTER 15 MIN Propranolol HCl (Inderal -) 40 mg PO BID [facility] Last Admin: 05/23/18 09:35 Dose: 40 mg Risperidone (Risperdal -) 0.25 mg PO BID [facility] Last Admin: 05/23/18 09:36 Dose: 0.25 mg Senna (Senna Oral Solution -) 13.2 mg PO [facility] Last Admin: 05/22/18 21:50 Dose: 13.2 mg - Objective Vital Signs: Vital Signs Temperature 97.5 F L 05/23/18 09:45 Pulse Rate 82 05/23/18 09:45 Respiratory Rate 20 05/23/18 09:45 Blood Pressure 114/55 L 05/23/18 09:45 O2 Sat by Pulse Oximetry (%) 100 05/23/18 09:56 Constitutional: Yes: No Distress, Calm Cardiovascular: Yes: Regular Rate and Rhythm Respiratory: Yes: Regular Gastrointestinal: Yes: Normal Bowel Sounds, Soft, Distention Extremities: Yes: WNL Integumentary: Yes: Pressure Ulcer (Sacral DU, b/l foot ulcers) Wound/Incision: Yes: Dressing Dry and Intact Neurological: Yes: Alert Labs: CBC, BMP 05/23/18 05:35 05/23/18 05:35 Microbiology 05/22/18 07:30 Blood - Peripheral Venous Blood Culture - Preliminary NO GROWTH OBTAINED AFTER 24 HOURS, INCUBATION TO CONTINUE FOR 4 DAYS. 05/22/18 07:35 Blood - Peripheral Venous Blood Culture - Preliminary NO GROWTH OBTAINED AFTER 24 HOURS, INCUBATION TO CONTINUE FOR 4 DAYS. 05/19/18 20:10 Buttock - Left Gram Stain - Final 05/19/18 20:10 Buttock - Left Wound Culture - Final Escherichia Coli Vr Ec Faecalis Diphtheroid/Corynebacterium 05/19/18 20:10 Blood - Peripheral Venous Blood Culture - Final Escherichia Coli 05/19/18 20:10 Blood - Peripheral Venous Blood Culture - Preliminary Non Lactose Fermenting Gnb Problem List - Problems (1) AMILCAR (acute kidney injury) Code(s): N17.9 - ACUTE KIDNEY FAILURE, UNSPECIFIED (2) Bacteremia Code(s): R78.81 - BACTEREMIA (3) Diabetes Code(s): E11.9 - TYPE 2 DIABETES MELLITUS WITHOUT COMPLICATIONS Qualifiers: Diabetes mellitus type: type 2 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 Diabetes mellitus complication status: with skin complications Diabetes mellitus complication detail: with foot ulcer Qualified Code(s): E11.621 - Type 2 diabetes mellitus with foot ulcer; L97.509 - Non-pressure chronic ulcer of other part of unspecified foot with unspecified severity; Z79.4 - pen[facility]iary (current) use of insulin (4) HLD (hyperlipidemia) Code(s): E78.5 - HYPERLIPIDEMIA, UNSPECIFIED (5) HTN (hypertension) Code(s): I10 - ESSENTIAL (PRIMARY) HYPERTENSION Qualifiers: Hypertension type: essential hypertension Qualified Code(s): I10 - Essential (primary) hypertension (6) Pressure ulcer Code(s): L89.90 - PRESSURE ULCER OF UNSPECIFIED SITE, UNSPECIFIED STAGE Qualifiers: Pressure injury location: sacral region Pressure injury stage: stage 4 Qualified Code(s): L89.154 - Pressure ulcer of sacral region, stage 4 (7) Sepsis Code(s): A41.9 - SEPSIS, UNSPECIFIED ORGANISM Assessment/Plan E. coli Bacteremia Sepsis Infected Stage IV Sacral DU s/p excisional debridement/ likely OM DM AMILCAR -- fever resolved -- culture isolates reviewed, latest blood cultures negative -- continue Zosyn for now, follow up 2nd blood culture isolate -- stool CDT -- continue wound care, offloading
[2018-05-23] MEDS ORDERED: PIPERACILLIN/TAZOBACTAM 3.375 GM VIAL IVPB ONE (17:13)
[2018-05-23] MEDS: PIPERACILLIN/TAZOB 3.375 GM 3.375 GM in DEXTROSE 5%-WATER - 50 ML IVPB SCH (17:19)
[2018-05-23] MEDS: SENNOSIDES 8.8 MG/5 ML BULK BOTTLE PO SCH (21:13)
[2018-05-23] MEDS: ACETAMINOPHEN 325 MG TABLET (FP) PO PRN (23:07)
[2018-05-24] MEDS ORDERED: PIPERACILLIN/TAZOBACTAM 3.375 GM VIAL IVPB ONE ×3 (02:12→18:27)
[2018-05-24] MEDS ORDERED: DEXTROSE 5%-WATER - 50 ML IVPB ONE ×3 (02:12→18:27)
[2018-05-24] MEDS: PIPERACILLIN/TAZOB 3.375 GM 3.375 GM in DEXTROSE 5%-WATER - 50 ML IVPB SCH ×3 (02:34→18:24)
[2018-05-24] MEDS: INSULIN SLIDING SCALE (NOVOLOG) 1 VIAL SQ SCH ×4 (06:11→22:28)
[2018-05-24] MEDS: INSULIN (LEVEMIR) 100 UNITS/ML UNITS SQ SCH ×2 (06:11→07:55)
[2018-05-24] MEDS: BISACODYL 5 MG TABLET.DR (FP) PO SCH (09:27)
[2018-05-24] MEDS: LACTATED RINGERS SOLUTION 1,000 ML IV SCH (09:27)
[2018-05-24] MEDS: FERROUS SO4 325 MG TABLET (FP) PO SCH (09:30)
[2018-05-24] MEDS: LORazepam 0.5 MG TABLET PO SCH ×2 (09:30→22:17)
[2018-05-24] MEDS: MULTIVITAMINS THER W-MINERALS COMBO TABLET (FP) PO SCH (09:30)
[2018-05-24] MEDS: AMINO ACIDS/PROTEIN HYDROLYS 30 ML LIQUID.PKT PO SCH ×2 (09:30→17:53)
[2018-05-24] MEDS: COLLAGENASE CLOSTRIDIUM HIST. 30 GRAMS TUBE TP SCH ×3 (09:30→22:20)
[2018-05-24] MEDS: APIXABAN 2.5 MG TABLET PO SCH ×2 (09:30→22:17)
[2018-05-24] MEDS: ASCORBIC ACID 500 MG TABLET (FP) PO SCH (09:30)
[2018-05-24] MEDS: BACITRACIN 15 GM TUBE TOPICAL OINTMENT TP SCH ×2 (09:31→22:20)
[2018-05-24] MEDS: POLYETHYLENE GLYCOL 3350 119 GM BTL PO SCH ×2 (09:31→22:18)
[2018-05-24] MEDS: risperiDONE 0.25 MG TABLET (FP) PO SCH ×2 (09:31→22:18)
[2018-05-24 09:35] LABS: ALBUMIN 1.4 g/dl (3.4-5.0); ALK PHOS 121 U/L (45-117); ANION GAP 14 MMOL/L (8-16); BILIRUBIN,TOTAL 0.2 mg/dL (0.2-1); BLOOD UREA NITROGEN 20 mg/dL (7-18); CALCIUM 8.1 mg/dL (8.5-10.1); CHLORIDE 125 mmol/L (98-107); CO2 15 mmol/L (21-32); CREATININE 1.2 mg/dL (0.55-1.3); GLUCOSE,RANDOM 133 mg/dL (74-106); POTASSIUM 3.5 mmol/L (3.5-5.1); SGOT/AST 24 U/L (15-37); SGPT/ALT 37 U/L (13-61); SODIUM 153 mmol/L (136-145); TOT PROT 4.8 g/dl (6.4-8.2)
--- NOTE | 2018-05-24 16:18 | PN ---
Progress Note, Physician Chief Complaint: reamined at base line - Current Medication List Current Medications: Active Medications Acetaminophen (Tylenol -) 650 mg PO Q6H PRN PRN Reason: PAIN LEVEL 1-5 Last Admin: 05/23/18 23:07 Dose: 650 mg Amino Acids (Prosource No Carb Liquid Pkt) 30 ml PO BID@0800,1730 [facility] Last Admin: 05/24/18 09:30 Dose: 30 ml Apixaban (Eliquis -) 2.5 mg PO BID [facility] Last Admin: 05/24/18 09:30 Dose: 2.5 mg Ascorbic Acid (Vitamin C -) 500 mg PO DAILY [facility] Last Admin: 05/24/18 09:30 Dose: 500 mg Bacitracin (Bacitracin -) 1 applic TP BID [facility] Last Admin: 05/24/18 09:31 Dose: 1 applic Bisacodyl (Dulcolax -) 5 mg PO DAILY [facility] Last Admin: 05/24/18 09:27 Dose: Not Given Collagenase (Santyl -) 1 applic TP DAILY [facility]; Protocol Last Admin: 05/24/18 09:30 Dose: 1 applic Collagenase (Santyl -) 1 applic TP BID [facility]; Protocol Last Admin: 05/24/18 09:30 Dose: 1 applic Ferrous Sulfate (Feosol -) 325 mg PO DAILY [facility] Last Admin: 05/24/18 09:30 Dose: 325 mg Lactated Ringer's (Lactated Ringers Solution) 1,000 mls @ 75 mls/hr IV ASDIR [facility] Last Admin: 05/24/18 09:27 Dose: Not Given Piperacillin Sod/Tazobactam (Sod 3.375 gm/ Dextrose) 50 mls @ 100 mls/hr IVPB Q8H-IV [facility]; Protocol Last Admin: 05/24/18 09:30 Dose: 100 mls/hr Insulin Aspart (Novolog Vial Sliding Scale -) 1 vial SQ ACHS [facility]; Protocol Last Admin: 05/24/18 11:44 Dose: Not Given Insulin Detemir (Levemir Vial) 12 units SQ DAILY@0700 [facility] Last Admin: 05/24/18 07:55 Dose: Not Given Lorazepam (Ativan -) 0.5 mg PO BID [facility] Last Admin: 05/24/18 09:30 Dose: 0.5 mg Multivitamins/Minerals (Theragran-M) 1 each PO DAILY [facility] Last Admin: 05/24/18 09:30 Dose: 1 each Ondansetron HCl (Zofran Injection) 4 mg IVPUSH Q6H PRN PRN Reason: NAUSEA AND/OR VOMITING Polyethylene Glycol (Miralax (For Daily Use) -) 17 gm PO BID [facility] Last Admin: 05/24/18 09:31 Dose: Not Given Promethazine HCl (Phenergan Injection -) 12.5 mg IVPUSH Q6H PRN PRN Reason: NAUSEA-FOR RESCUE AFTER 15 MIN Propranolol HCl (Inderal -) 40 mg PO BID [facility] Last Admin: 05/24/18 09:31 Dose: 40 mg Risperidone (Risperdal -) 0.25 mg PO BID [facility] Last Admin: 05/24/18 09:31 Dose: 0.25 mg Senna (Senna Oral Solution -) 13.2 mg PO HS [facility] Last Admin: 05/23/18 21:13 Dose: 13.2 mg - Objective Vital Signs: Vital Signs Temperature 97.5 F L 05/24/18 10:00 Pulse Rate 72 05/24/18 10:00 Respiratory Rate 20 05/24/18 10:00 Blood Pressure 115/65 05/24/18 10:00 O2 Sat by Pulse Oximetry (%) 99 05/24/18 09:00 Constitutional: Yes: Well Nourished, No Distress Cardiovascular: Yes: Regular Rate and Rhythm Respiratory: Yes: Regular, CTA Bilaterally. No: Accessory Muscle Use, Tachypnea , Wheezes Gastrointestinal: Yes: WNL, Normal Bowel Sounds, Soft. No: Distention, Tenderness Genitourinary: Yes: Incontinence Edema: Yes Edema: LLE: Trace, RLE: Trace Integumentary: Yes: Pressure Ulcer Wound/Incision: Yes: Dressing Dry and Intact Neurological: Yes: WNL, Alert, Oriented Psychiatric: Yes: Alert, Oriented Labs: Labs: CBC, BMP 05/24/18 07:28 05/24/18 07:28 Problem List - Problems (1) Sepsis Code(s): A41.9 - SEPSIS, UNSPECIFIED ORGANISM (2) Multiple open wounds Code(s): T07.XXXA - UNSPECIFIED MULTIPLE INJURIES, INITIAL ENCOUNTER (3) CKD (chronic kidney disease) Code(s): N18.9 - CHRONIC KIDNEY DISEASE, UNSPECIFIED Qualifiers: Chronic kidney disease stage: stage 2 (mild) Qualified Code(s): N18.2 - Chronic kidney disease, stage 2 (mild) (4) Diabetes Code(s): E11.9 - TYPE 2 DIABETES MELLITUS WITHOUT COMPLICATIONS Qualifiers: Diabetes mellitus type: type 2 Diabetes mellitus intermediate insulin use: with intermediate use Diabetes mellitus complication status: with skin complications Diabetes mellitus complication detail: with foot ulcer Qualified Code(s): E11.621 - Type 2 diabetes mellitus with foot ulcer; L97.509 - Non-pressure chronic ulcer of other part of unspecified foot with unspecified severity; 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
--- NOTE | 2018-05-24 16:22 | PN ---
Progress Note, Physician History of Present Illness: Pt is alert, afebrile. States she feels fine. Has had loose stools, dulcolax being held now. Denies abd pain/cramping. No specific complaints. - Current Medication List Current Medications: Active Medications Acetaminophen (Tylenol -) 650 mg PO Q6H PRN PRN Reason: PAIN LEVEL 1-5 Last Admin: 05/23/18 23:07 Dose: 650 mg Amino Acids (Prosource No Carb Liquid Pkt) 30 ml PO BID@0800,1730 [facility] Last Admin: 05/24/18 09:30 Dose: 30 ml Apixaban (Eliquis -) 2.5 mg PO BID [facility] Last Admin: 05/24/18 09:30 Dose: 2.5 mg Ascorbic Acid (Vitamin C -) 500 mg PO DAILY [facility] Last Admin: 05/24/18 09:30 Dose: 500 mg Bacitracin (Bacitracin -) 1 applic TP BID [facility] Last Admin: 05/24/18 09:31 Dose: 1 applic Bisacodyl (Dulcolax -) 5 mg PO DAILY [facility] Last Admin: 05/24/18 09:27 Dose: Not Given Collagenase (Santyl -) 1 applic TP DAILY [facility]; Protocol Last Admin: 05/24/18 09:30 Dose: 1 applic Collagenase (Santyl -) 1 applic TP BID [facility]; Protocol Last Admin: 05/24/18 09:30 Dose: 1 applic Ferrous Sulfate (Feosol -) 325 mg PO DAILY [facility] Last Admin: 05/24/18 09:30 Dose: 325 mg Lactated Ringer's (Lactated Ringers Solution) 1,000 mls @ 75 mls/hr IV ASDIR [facility] Last Admin: 05/24/18 09:27 Dose: Not Given Piperacillin Sod/Tazobactam (Sod 3.375 gm/ Dextrose) 50 mls @ 100 mls/hr IVPB Q8H-IV [facility]; Protocol Last Admin: 05/24/18 09:30 Dose: 100 mls/hr Sodium Chloride (1/2 Normal Saline) 1,000 mls @ 75 mls/hr IV ASDIR [facility] Insulin Aspart (Novolog Vial Sliding Scale -) 1 vial SQ ACHS [facility]; Protocol Last Admin: 05/24/18 11:44 Dose: Not Given Insulin Detemir (Levemir Vial) 12 units SQ DAILY@0700 [facility] Last Admin: 05/24/18 07:55 Dose: Not Given Lorazepam (Ativan -) 0.5 mg PO BID [facility] Last Admin: 05/24/18 09:30 Dose: 0.5 mg Multivitamins/Minerals (Theragran-M) 1 each PO DAILY [facility] Last Admin: 05/24/18 09:30 Dose: 1 each Ondansetron HCl (Zofran Injection) 4 mg IVPUSH Q6H PRN PRN Reason: NAUSEA AND/OR VOMITING Polyethylene Glycol (Miralax (For Daily Use) -) 17 gm PO BID [facility] Last Admin: 05/24/18 09:31 Dose: Not Given Promethazine HCl (Phenergan Injection -) 12.5 mg IVPUSH Q6H PRN PRN Reason: NAUSEA-FOR RESCUE AFTER 15 MIN Propranolol HCl (Inderal -) 40 mg PO BID [facility] Last Admin: 05/24/18 09:31 Dose: 40 mg Risperidone (Risperdal -) 0.25 mg PO BID [facility] Last Admin: 05/24/18 09:31 Dose: 0.25 mg Senna (Senna Oral Solution -) 13.2 mg PO HS [facility] Last Admin: 05/23/18 21:13 Dose: 13.2 mg - Objective Vital Signs: Vital Signs Temperature 97.5 F L 05/24/18 10:00 Pulse Rate 72 05/24/18 10:00 Respiratory Rate 20 05/24/18 10:00 Blood Pressure 115/65 05/24/18 10:00 O2 Sat by Pulse Oximetry (%) 99 05/24/18 09:00 Constitutional: Yes: No Distress, Calm Cardiovascular: Yes: Regular Rate and Rhythm Respiratory: Yes: CTA Bilaterally Gastrointestinal: Yes: Normal Bowel Sounds, Soft Genitourinary: Yes: WNL Extremities: Yes: WNL Integumentary: Yes: Pressure Ulcer (Sacral DU) Wound/Incision: Yes: Dressing Dry and Intact Neurological: Yes: Alert Labs: CBC, BMP 05/24/18 07:28 05/24/18 07:28 Microbiology 05/22/18 07:30 Blood - Peripheral Venous Blood Culture - Preliminary NO GROWTH OBTAINED AFTER 48 HOURS, INCUBATION TO CONTINUE FOR 3 DAYS. 05/22/18 07:35 Blood - Peripheral Venous Blood Culture - Preliminary NO GROWTH OBTAINED AFTER 48 HOURS, INCUBATION TO CONTINUE FOR 3 DAYS. 05/19/18 20:10 Buttock - Left Gram Stain - Final 05/19/18 20:10 Buttock - Left Wound Culture - Final Escherichia Coli Vr Ec Faecalis Diphtheroid/Corynebacterium 05/19/18 20:10 Blood - Peripheral Venous Blood Culture - Final Escherichia Coli 05/19/18 20:10 Blood - Peripheral Venous Blood Culture - Preliminary Non Lactose Fermenting Gnb Problem List - Problems (1) AMILCAR (acute kidney injury) Code(s): N17.9 - ACUTE KIDNEY FAILURE, UNSPECIFIED (2) Bacteremia Code(s): R78.81 - BACTEREMIA (3) Diabetes Code(s): E11.9 - TYPE 2 DIABETES MELLITUS WITHOUT COMPLICATIONS Qualifiers: Diabetes mellitus type: type 2 Diabetes mellitus occ ther insulin use: with intermediate use Diabetes mellitus complication status: with skin complications Diabetes mellitus complication detail: with foot ulcer Qualified Code(s): E11.621 - Type 2 diabetes mellitus with foot ulcer; L97.509 - Non-pressure chronic ulcer of other part of unspecified foot with unspecified severity; Z79.4 - [facility] (current) use of insulin (4) HLD (hyperlipidemia) Code(s): E78.5 - HYPERLIPIDEMIA, UNSPECIFIED (5) HTN (hypertension) Code(s): I10 - ESSENTIAL (PRIMARY) HYPERTENSION Qualifiers: Hypertension type: essential hypertension Qualified Code(s): I10 - Essential (primary) hypertension (6) Pressure ulcer Code(s): L89.90 - PRESSURE ULCER OF UNSPECIFIED SITE, UNSPECIFIED STAGE Qualifiers: Pressure injury location: sacral region Pressure injury stage: stage 4 Qualified Code(s): L89.154 - Pressure ulcer of sacral region, stage 4 (7) Sepsis Code(s): A41.9 - SEPSIS, UNSPECIFIED ORGANISM Assessment/Plan E. coli Bacteremia Sepsis - resolving Infected Stage IV Sacral DU s/p excisional debridement/ likely OM DM AMILCAR -- afebrile, latest blood cultures no growth in 48hrs -- continue Zosyn for now -- stool CDT result pending -- continue wound care, offloading pt appears clinically stable at this time
[2018-05-24] MEDS: SODIUM CHLORIDE 0.45% 1,000 ML IV SCH (17:52)
[2018-05-24] MEDS ORDERED: INSULIN (NOVOLOG) ASPART 100 UNITS/ML 10ML VIAL ONE (20:57)
[2018-05-24] MEDS ORDERED: PT OWN MED DRAWER 7, Y5N ONE (20:58)
[2018-05-24] MEDS: SENNOSIDES 8.8 MG/5 ML BULK BOTTLE PO SCH (22:17)
[2018-05-25] MEDS ORDERED: PIPERACILLIN/TAZOBACTAM 3.375 GM VIAL IVPB ONE ×3 (01:09→17:32)
[2018-05-25] MEDS: PIPERACILLIN/TAZOB 3.375 GM 3.375 GM in DEXTROSE 5%-WATER - 50 ML IVPB SCH ×3 (01:11→17:45)
[2018-05-25] MEDS: INSULIN (LEVEMIR) 100 UNITS/ML UNITS SQ SCH (06:08)
[2018-05-25] MEDS: INSULIN SLIDING SCALE (NOVOLOG) 1 VIAL SQ SCH ×4 (06:09→21:57)
[2018-05-25] MEDS ORDERED: INSULIN (LEVEMIR) 100 UNITS/ML UNITS SQ ONE (06:41)
[2018-05-25] MEDS: AMINO ACIDS/PROTEIN HYDROLYS 30 ML LIQUID.PKT PO SCH ×2 (08:25→17:45)
[2018-05-25] MEDS: SODIUM CHLORIDE 0.45% 1,000 ML IV SCH (09:00)
--- NOTE | 2018-05-25 09:50 | PN ---
Progress Note, Physician History of Present Illness: patient slightly confused had dirrhoea cdiff pending otherwise comfortable - Current Medication List Current Medications: Active Medications Acetaminophen (Tylenol -) 650 mg PO Q6H PRN PRN Reason: PAIN LEVEL 1-5 Last Admin: 05/23/18 23:07 Dose: 650 mg Amino Acids (Prosource No Carb Liquid Pkt) 30 ml PO BID@0800,1730 [facility] Last Admin: 05/25/18 08:25 Dose: 30 ml Apixaban (Eliquis -) 2.5 mg PO BID [facility] Last Admin: 05/24/18 22:17 Dose: 2.5 mg Ascorbic Acid (Vitamin C -) 500 mg PO DAILY [facility] Last Admin: 05/24/18 09:30 Dose: 500 mg Bacitracin (Bacitracin -) 1 applic TP BID [facility] Last Admin: 05/24/18 22:20 Dose: 1 applic Bisacodyl (Dulcolax -) 5 mg PO DAILY [facility] Last Admin: 05/24/18 09:27 Dose: Not Given Collagenase (Santyl -) 1 applic TP DAILY [facility]; Protocol Last Admin: 05/24/18 09:30 Dose: 1 applic Collagenase (Santyl -) 1 applic TP BID [facility]; Protocol Last Admin: 05/24/18 22:20 Dose: 1 applic Ferrous Sulfate (Feosol -) 325 mg PO DAILY [facility] Last Admin: 05/24/18 09:30 Dose: 325 mg Lactated Ringer's (Lactated Ringers Solution) 1,000 mls @ 75 mls/hr IV ASDIR [facility] Last Admin: 05/24/18 09:27 Dose: Not Given Piperacillin Sod/Tazobactam (Sod 3.375 gm/ Dextrose) 50 mls @ 100 mls/hr IVPB Q8H-IV [facility]; Protocol Last Admin: 05/25/18 01:11 Dose: 100 mls/hr Sodium Chloride (1/2 Normal Saline) 1,000 mls @ 75 mls/hr IV ASDIR [facility] Last Admin: 05/24/18 17:52 Dose: 75 mls/hr Insulin Aspart (Novolog Vial Sliding Scale -) 1 vial SQ ACHS [facility]; Protocol Last Admin: 05/25/18 06:09 Dose: Not Given Insulin Detemir (Levemir Vial) 12 units SQ DAILY@0700 [facility] Last Admin: 05/25/18 06:08 Dose: 12 units Lorazepam (Ativan -) 0.5 mg PO BID [facility] Last Admin: 05/24/18 22:17 Dose: 0.5 mg Multivitamins/Minerals (Theragran-M) 1 each PO DAILY [facility] Last Admin: 05/24/18 09:30 Dose: 1 each Ondansetron HCl (Zofran Injection) 4 mg IVPUSH Q6H PRN PRN Reason: NAUSEA AND/OR VOMITING Polyethylene Glycol (Miralax (For Daily Use) -) 17 gm PO BID [facility] Last Admin: 05/24/18 22:18 Dose: Not Given Promethazine HCl (Phenergan Injection -) 12.5 mg IVPUSH Q6H PRN PRN Reason: NAUSEA-FOR RESCUE AFTER 15 MIN Propranolol HCl (Inderal -) 40 mg PO BID [facility] Last Admin: 05/24/18 22:18 Dose: 40 mg Risperidone (Risperdal -) 0.25 mg PO BID [facility] Last Admin: 05/24/18 22:18 Dose: 0.25 mg Senna (Senna Oral Solution -) 13.2 mg PO HS [facility] Last Admin: 05/24/18 22:17 Dose: Not Given - Objective Vital Signs: Vital Signs Temperature 98.0 F 05/25/18 06:00 Pulse Rate 66 05/25/18 06:00 Respiratory Rate 20 05/25/18 06:00 Blood Pressure 115/51 L 05/25/18 06:00 O2 Sat by Pulse Oximetry (%) 99 05/24/18 09:00 Constitutional: Yes: No Distress, Calm, Other (confused) Cardiovascular: Yes: Regular Rate and Rhythm Respiratory: Yes: Regular, CTA Bilaterally Gastrointestinal: Yes: Normal Bowel Sounds, Soft Musculoskeletal: Yes: WNL Extremities: Yes: Other Neurological: Yes: Other (confused) Labs: CBC, BMP 05/24/18 07:28 05/24/18 07:28 Assessment/Plan Problem List - Problems (1) Sepsis Code(s): A41.9 - SEPSIS, UNSPECIFIED ORGANISM (2) Pressure ulcer Code(s): L89.90 - PRESSURE ULCER OF UNSPECIFIED SITE, UNSPECIFIED STAGE Qualifiers: Pressure injury location: sacral region Pressure injury stage: stage 4 Qualified Code(s): L89.154 - Pressure ulcer of sacral region, stage 4 (3) Multiple open wounds Code(s): T07.XXXA - UNSPECIFIED MULTIPLE INJURIES, INITIAL ENCOUNTER (4) AMILCAR (acute kidney injury) Code(s): N17.9 - ACUTE KIDNEY FAILURE, UNSPECIFIED (5) Transaminitis Code(s): R74.0 - NONSPEC ELEV OF LEVELS OF TRANSAMNS & LACTIC ACID DEHYDRGNSE (6) HTN (hypertension) Code(s): I10 - ESSENTIAL (PRIMARY) HYPERTENSION Qualifiers: Hypertension type: essential hypertension Qualified Code(s): I10 - Essential (primary) hypertension (7) Diabetes Code(s): E11.9 - TYPE 2 DIABETES MELLITUS WITHOUT COMPLICATIONS Qualifiers: Diabetes mellitus type: type 2 Diabetes mellitus group home insulin use: with termite technician use Diabetes mellitus complication status: with skin complications Diabetes mellitus complication detail: with foot ulcer Qualified Code(s): E11.621 - Type 2 diabetes mellitus with foot ulcer; L97.509 - Non-pressure chronic ulcer of other part of unspecified foot with unspecified severity; Z79.4 - termite technician (current) use of insulin (8) CKD (chronic kidney disease) Code(s): N18.9 - CHRONIC KIDNEY DISEASE, UNSPECIFIED Qualifiers: Chronic kidney disease stage: stage 2 (mild) Qualified Code(s): N18.2 - Chronic kidney disease, stage 2 (mild) (9) Anemia Code(s): D64.9 - ANEMIA, UNSPECIFIED Qualifiers: Chronic kidney disease stage: stage 3 (moderate) (10) Bipolar 1 disorder Code(s): F31.9 - BIPOLAR DISORDER, UNSPECIFIED (11) History of DVT (deep vein thrombosis) Code(s): Z86.718 - PERSONAL HISTORY OF OTHER VENOUS THROMBOSIS AND EMBOLISM (12) Bacteremia Code(s): R78.81 - BACTEREMIA (13) Acute blood loss anemia Code(s): D62 - ACUTE POSTHEMORRHAGIC ANEMIA plan continue current mgmt still awaiting for organism repeat cx negative await cdiff result continue zosyn rest as per the team
--- NOTE | 2018-05-25 10:26 | PN ---
Progress Note, Physician Chief Complaint: Pt lying in bed in no acute distress. slightly confused. currently denies any chest pain, sob, n/v/d - Current Medication List Current Medications: Active Medications Acetaminophen (Tylenol -) 650 mg PO Q6H PRN PRN Reason: PAIN LEVEL 1-5 Last Admin: 05/23/18 23:07 Dose: 650 mg Amino Acids (Prosource No Carb Liquid Pkt) 30 ml PO BID@0800,1730 [facility] Last Admin: 05/25/18 08:25 Dose: 30 ml Apixaban (Eliquis -) 2.5 mg PO BID [facility] Last Admin: 05/24/18 22:17 Dose: 2.5 mg Ascorbic Acid (Vitamin C -) 500 mg PO DAILY [facility] Last Admin: 05/24/18 09:30 Dose: 500 mg Bacitracin (Bacitracin -) 1 applic TP BID [facility] Last Admin: 05/24/18 22:20 Dose: 1 applic Bisacodyl (Dulcolax -) 5 mg PO DAILY [facility] Last Admin: 05/24/18 09:27 Dose: Not Given Collagenase (Santyl -) 1 applic TP DAILY [facility]; Protocol Last Admin: 05/24/18 09:30 Dose: 1 applic Collagenase (Santyl -) 1 applic TP BID [facility]; Protocol Last Admin: 05/24/18 22:20 Dose: 1 applic Ferrous Sulfate (Feosol -) 325 mg PO DAILY [facility] Last Admin: 05/24/18 09:30 Dose: 325 mg Lactated Ringer's (Lactated Ringers Solution) 1,000 mls @ 75 mls/hr IV ASDIR [facility] Last Admin: 05/24/18 09:27 Dose: Not Given Piperacillin Sod/Tazobactam (Sod 3.375 gm/ Dextrose) 50 mls @ 100 mls/hr IVPB Q8H-IV [facility]; Protocol Last Admin: 05/25/18 01:11 Dose: 100 mls/hr Sodium Chloride (1/2 Normal Saline) 1,000 mls @ 75 mls/hr IV ASDIR [facility] Last Admin: 05/24/18 17:52 Dose: 75 mls/hr Insulin Aspart (Novolog Vial Sliding Scale -) 1 vial SQ ACHS [facility]; Protocol Last Admin: 05/25/18 06:09 Dose: Not Given Insulin Detemir (Levemir Vial) 12 units SQ DAILY@0700 [facility] Last Admin: 05/25/18 06:08 Dose: 12 units Lorazepam (Ativan -) 0.5 mg PO BID [facility] Last Admin: 05/24/18 22:17 Dose: 0.5 mg Multivitamins/Minerals (Theragran-M) 1 each PO DAILY [facility] Last Admin: 05/24/18 09:30 Dose: 1 each Ondansetron HCl (Zofran Injection) 4 mg IVPUSH Q6H PRN PRN Reason: NAUSEA AND/OR VOMITING Polyethylene Glycol (Miralax (For Daily Use) -) 17 gm PO BID [facility] Last Admin: 05/24/18 22:18 Dose: Not Given Promethazine HCl (Phenergan Injection -) 12.5 mg IVPUSH Q6H PRN PRN Reason: NAUSEA-FOR RESCUE AFTER 15 MIN Propranolol HCl (Inderal -) 40 mg PO BID [facility] Last Admin: 05/24/18 22:18 Dose: 40 mg Risperidone (Risperdal -) 0.25 mg PO BID [facility] Last Admin: 05/24/18 22:18 Dose: 0.25 mg Senna (Senna Oral Solution -) 13.2 mg PO HS [facility] Last Admin: 05/24/18 22:17 Dose: Not Given - Objective Vital Signs: Vital Signs Temperature 98.0 F 05/25/18 06:00 Pulse Rate 66 05/25/18 06:00 Respiratory Rate 20 05/25/18 06:00 Blood Pressure 115/51 L 05/25/18 06:00 O2 Sat by Pulse Oximetry (%) 99 05/24/18 09:00 Constitutional: Yes: Well Nourished, No Distress Cardiovascular: Yes: WNL, Regular Rate and Rhythm Respiratory: Yes: WNL, Regular, CTA Bilaterally. No: Accessory Muscle Use, Rhonchi, SOB, Tachypnea, Wheezes Gastrointestinal: Yes: WNL, Normal Bowel Sounds. No: Distention, Tenderness Genitourinary: Yes: Incontinence Edema: No Integumentary: Yes: Pressure Ulcer Wound/Incision: Yes: Dressing Dry and Intact Neurological: Yes: Alert, Confusion Psychiatric: Yes: Alert Problem List - Problems (1) Sepsis Code(s): A41.9 - SEPSIS, UNSPECIFIED ORGANISM (2) Pressure ulcer Code(s): L89.90 - PRESSURE ULCER OF UNSPECIFIED SITE, UNSPECIFIED STAGE Qualifiers: Pressure injury location: sacral region Pressure injury stage: stage 4 Qualified Code(s): L89.154 - Pressure ulcer of sacral region, stage 4 (3) Multiple open wounds Code(s): T07.XXXA - UNSPECIFIED MULTIPLE INJURIES, INITIAL ENCOUNTER (4) AMILCAR (acute kidney injury) Code(s): N17.9 - ACUTE KIDNEY FAILURE, UNSPECIFIED (5) Transaminitis Code(s): R74.0 - NONSPEC ELEV OF LEVELS OF TRANSAMNS & LACTIC ACID DEHYDRGNSE (6) HTN (hypertension) Code(s): I10 - ESSENTIAL (PRIMARY) HYPERTENSION Qualifiers: Hypertension type: essential hypertension Qualified Code(s): I10 - Essential (primary) hypertension (7) Diabetes Code(s): E11.9 - TYPE 2 DIABETES MELLITUS WITHOUT COMPLICATIONS Qualifiers: Diabetes mellitus type: type 2 Diabetes mellitus terminal makeup operator insulin use: with terminal makeup operator use Diabetes mellitus complication status: with skin complications Diabetes mellitus complication detail: with foot ulcer Qualified Code(s): E11.621 - Type 2 diabetes mellitus with foot ulcer; L97.509 - Non-pressure chronic ulcer of other part of unspecified foot with unspecified severity; Z79.4 - long-term (current) use of insulin (8) CKD (chronic kidney disease) Code(s): N18.9 - CHRONIC KIDNEY DISEASE, UNSPECIFIED Qualifiers: Chronic kidney disease stage: stage 2 (mild) Qualified Code(s): N18.2 - Chronic kidney disease, stage 2 (mild) (9) Anemia Code(s): D64.9 - ANEMIA, UNSPECIFIED Qualifiers: Chronic kidney disease stage: stage 3 (moderate) (10) Bipolar 1 disorder Code(s): F31.9 - BIPOLAR DISORDER, UNSPECIFIED (11) History of DVT (deep vein thrombosis) Code(s): Z86.718 - PERSONAL HISTORY OF OTHER VENOUS THROMBOSIS AND EMBOLISM (12) Bacteremia Code(s): R78.81 - BACTEREMIA (13) Acute blood loss anemia Code(s): D62 - ACUTE POSTHEMORRHAGIC ANEMIA (14) Hypokalemia Code(s): E87.6 - HYPOKALEMIA (15) Hypernatremia Code(s): E87.0 - HYPEROSMOLALITY AND HYPERNATREMIA Assessment/Plan (1) Sepsis Assessment/Plan: improved blood cultures positive /- grew ecoli deep wound pressure ulcers- source of infection cdiff negative Zosyn day 6 ID following Code(s): A41.9 - SEPSIS, UNSPECIFIED ORGANISM (2) Pressure ulcer Assessment/Plan: sacral stage 4, b/l heels unstageable, b/l buttocks-stage 2 s/p debridement wound culture grew ecoli, vre as above vascular following Code(s): L89.90 - PRESSURE ULCER OF UNSPECIFIED SITE, UNSPECIFIED STAGE Qualifiers: Pressure injury location: sacral region Pressure injury stage: stage 4 Qualified Code(s): L89.154 - Pressure ulcer of sacral region, stage 4 (3) Multiple open wounds Assessment/Plan: as above Code(s): T07.XXXA - UNSPECIFIED MULTIPLE INJURIES, INITIAL ENCOUNTER (4) AMILCAR (acute kidney injury) Assessment/Plan: resolved Code(s): N17.9 - ACUTE KIDNEY FAILURE, UNSPECIFIED (5) Transaminitis Assessment/Plan: improved Code(s): R74.0 - NONSPEC ELEV OF LEVELS OF TRANSAMNS & LACTIC ACID DEHYDRGNSE (6) HTN (hypertension) Assessment/Plan: controlled, tends to be low here continue propanolol Code(s): I10 - ESSENTIAL (PRIMARY) HYPERTENSION Qualifiers: Hypertension type: essential hypertension Qualified Code(s): I10 - Essential (primary) hypertension (7) Diabetes Assessment/Plan: w/ multiple complications ckd, ulcers treated in SNF for uti- repeat UA/UC bgm, insulin sliding scale levemir Code(s): E11.9 - TYPE 2 DIABETES MELLITUS WITHOUT COMPLICATIONS Qualifiers: Diabetes mellitus type: type 2 Diabetes mellitus half-way insulin use: with half-way use Diabetes mellitus complication status: with skin complications Diabetes mellitus complication detail: with foot ulcer Qualified Code(s): E11.621 - Type 2 diabetes mellitus with foot ulcer; L97.509 - Non-pressure chronic ulcer of other part of unspecified foot with unspecified severity; Z79.4 - long-term (current) use of insulin (8) CKD (chronic kidney disease) Assessment/Plan: baseline cr 1.3 per records Code(s): N18.9 - CHRONIC KIDNEY DISEASE, UNSPECIFIED Qualifiers: Chronic kidney disease stage: stage 2 (mild) Qualified Code(s): N18.2 - Chronic kidney disease, stage 2 (mild) (9) Anemia Assessment/Plan: hg/hct stable iron level low/tibc low/hemeoccult neg suspect 2/2 ckd/chronic disease continue po iron consider IV iron after d/c monitor Code(s): D64.9 - ANEMIA, UNSPECIFIED Qualifiers: Chronic kidney disease stage: stage 3 (moderate) (10) Bipolar 1 disorder Assessment/Plan: stable continue risperidone Code(s): F31.9 - BIPOLAR DISORDER, UNSPECIFIED (11) History of DVT (deep vein thrombosis) Assessment/Plan: anticoagulated on eliquis Code(s): Z86.718 - PERSONAL HISTORY OF OTHER VENOUS THROMBOSIS AND EMBOLISM (12) Acute blood loss anemia Assessment/Plan: hg/hct stable s/p 1unit prbcs Code(s): D62 - ACUTE POSTHEMORRHAGIC ANEMIA (14) Hypokalemia Assessment/Plan: mild kcl 40mg po x 2 monitor bmp Code(s): E87.6 - HYPOKALEMIA (15) Hypernatremia Assessment/Plan: improving IVF stopped monitor Code(s): E87.0 - HYPEROSMOLALITY AND HYPERNATREMIA Dispo: SNF, pending ID clearance
[2018-05-25 10:45] LABS: ANION GAP 9 MMOL/L (8-16); BLOOD UREA NITROGEN 20 mg/dL (7-18); CALCIUM 8.3 mg/dL (8.5-10.1); CHLORIDE 127 mmol/L (98-107); CO2 14 mmol/L (21-32); GLUCOSE,RANDOM 161 mg/dL (74-106); POTASSIUM 3.6 mmol/L (3.5-5.1); SODIUM 150 mmol/L (136-145)
[2018-05-25 11:06] LABS: BASO % 0.7 % (0-2.0); EOS % 1.3 % (0-4.5); HEMOGLOBIN 9.9 GM/dL (10.7-15.3); LYMPH % 26.1 % (8-40); MCH 29.1 pg (25.7-33.7); MCHC 31.8 g/dl (32.0-36.0); MEAN CELL VOLUME 91.5 fl (80-96); MEAN PLT VOLUME 7.8 fl (7.5-11.1); MONO % 9.5 % (3.8-10.2); NEUT % 62.4 % (42.8-82.8); PLATELET COUNT 441 K/MM3 (134-434); RBC 3.39 M/mm3 (3.60-5.2); WHITE BLOOD COUNT 5.1 K/mm3 (4.0-10.0)
[2018-05-25] MEDS ORDERED: DEXTROSE 5%-WATER - 50 ML IVPB ONE (11:08)
[2018-05-25] MEDS: ASCORBIC ACID 500 MG TABLET (FP) PO SCH (11:12)
[2018-05-25] MEDS: FERROUS SO4 325 MG TABLET (FP) PO SCH (11:13)
[2018-05-25] MEDS: COLLAGENASE CLOSTRIDIUM HIST. 30 GRAMS TUBE TP SCH ×3 (11:13→21:45)
[2018-05-25] MEDS: POTASSIUM CHLORIDE ORAL LIQUID 20 MEQ/15 ML PO SCH ×2 (11:13→21:43)
[2018-05-25] MEDS: APIXABAN 2.5 MG TABLET PO SCH ×2 (11:13→21:39)
[2018-05-25] MEDS: MULTIVITAMINS THER W-MINERALS COMBO TABLET (FP) PO SCH (11:13)
[2018-05-25] MEDS: LORazepam 0.5 MG TABLET PO SCH ×2 (11:13→21:39)
[2018-05-25] MEDS: risperiDONE 0.25 MG TABLET (FP) PO SCH ×2 (11:14→21:43)
[2018-05-25] MEDS: POLYETHYLENE GLYCOL 3350 119 GM BTL PO SCH ×2 (11:14→21:42)
[2018-05-25] MEDS: BISACODYL 5 MG TABLET.DR (FP) PO SCH (11:14)
[2018-05-25] MEDS: BACITRACIN 15 GM TUBE TOPICAL OINTMENT TP SCH ×2 (11:14→21:39)
[2018-05-25] MEDS ORDERED: INSULIN (NOVOLOG) ASPART 100 UNITS/ML 10ML VIAL ONE (11:41)
[2018-05-25 11:43] LABS: MAGNESIUM 1.9 mg/dL (1.8-2.4)
--- NOTE | 2018-05-25 16:50 | PATH ---
Surgical Pathology Report Patient Name: TOBIAS RATLIFF Med. Rec. #: [id number] /Age/Gender: 1945 (Age: 73) / F Account: [id number] Location: [address] [place] [address]/[facility] Taken: 05/21/2018 Received: 05/22/2018 Reported: 05/25/2018 Physicians: Romero Thomson M.D. Specimen(s) Received DEBRIDEMENT TISSUE SACRAL ULCER Clinical History Sacral ulcer Final Diagnosis SACRUM, ULCER, DEBRIDEMENT: SOFT TISSUE WITH MARKED ACUTE INFLAMMATION, ULCERATION, AND NECROSIS. Electronically Signed Delfina Jimenez M.D. Gross Description Received in formalin labeled "debrided tissue sacral ulcer" is an irregular kelly soft tissue which measures 5 x 2 x 2 centimeters. Rubber Molder sections are submitted in one cassette. MLSZ/05/22/2018 sanjorge/05/22/2018
[2018-05-25] MEDS: ACETAMINOPHEN 325 MG TABLET (FP) PO PRN (18:50)
[2018-05-25] MEDS ORDERED: PT OWN MED DRAWER 7, Y5N ONE (21:36)
[2018-05-25] MEDS: SENNOSIDES 8.8 MG/5 ML BULK BOTTLE PO SCH (21:46)
[2018-05-26] MEDS ORDERED: PIPERACILLIN/TAZOBACTAM 3.375 GM VIAL IVPB ONE ×3 (02:40→17:10)
[2018-05-26] MEDS ORDERED: DEXTROSE 5%-WATER - 50 ML IVPB ONE ×3 (02:41→17:11)
[2018-05-26] MEDS: PIPERACILLIN/TAZOB 3.375 GM 3.375 GM in DEXTROSE 5%-WATER - 50 ML IVPB SCH ×3 (03:00→17:24)
[2018-05-26] MEDS: INSULIN SLIDING SCALE (NOVOLOG) 1 VIAL SQ SCH ×4 (06:31→21:59)
[2018-05-26] MEDS: INSULIN (LEVEMIR) 100 UNITS/ML UNITS SQ SCH (07:02)
[2018-05-26] MEDS ORDERED: PT OWN MED DRAWER 7, Y5N ONE ×2 (07:10→21:51)
[2018-05-26 08:18] LABS: BASO % 1.1 % (0-2.0); EOS % 1.1 % (0-4.5); HEMATOCRIT 30.1 % (32.4-45.2); HEMOGLOBIN 9.5 GM/dL (10.7-15.3); MCHC 31.7 g/dl (32.0-36.0); MEAN CELL VOLUME 91.5 fl (80-96); MEAN PLT VOLUME 7.7 fl (7.5-11.1); MONO % 10.4 % (3.8-10.2); NEUT % 56.4 % (42.8-82.8); PLATELET COUNT 435 K/MM3 (134-434); RBC 3.28 M/mm3 (3.60-5.2); RDW 16.4 % (11.6-15.6); WHITE BLOOD COUNT 4.6 K/mm3 (4.0-10.0)
[2018-05-26] MEDS: AMINO ACIDS/PROTEIN HYDROLYS 30 ML LIQUID.PKT PO SCH ×2 (08:50→17:23)
[2018-05-26 09:00] LABS: ANION GAP 8 MMOL/L (8-16); BLOOD UREA NITROGEN 22 mg/dL (7-18); CALCIUM 8.7 mg/dL (8.5-10.1); CHLORIDE 134 mmol/L (98-107); CO2 15 mmol/L (21-32); GLUCOSE,RANDOM 103 mg/dL (74-106); MAGNESIUM 2.1 mg/dL (1.8-2.4); SODIUM 157 mmol/L (136-145)
[2018-05-26] MEDS ORDERED: DEXTROSE 5%-WATER - 1,000 ML IV SCH ×3 (09:15→16:48)
--- NOTE | 2018-05-26 09:30 | PN ---
Progress Note, Physician History of Present Illness: stable no new issues cdiff negative sleeping more - Current Medication List Current Medications: Active Medications Acetaminophen (Tylenol -) 650 mg PO Q6H PRN PRN Reason: PAIN LEVEL 1-5 Last Admin: 05/25/18 18:50 Dose: 650 mg Amino Acids (Prosource No Carb Liquid Pkt) 30 ml PO BID@0800,1730 [facility] Last Admin: 05/26/18 08:50 Dose: 30 ml Apixaban (Eliquis -) 2.5 mg PO BID [facility] Last Admin: 05/25/18 21:39 Dose: 2.5 mg Ascorbic Acid (Vitamin C -) 500 mg PO DAILY [facility] Last Admin: 05/25/18 11:12 Dose: 500 mg Bacitracin (Bacitracin -) 1 applic TP BID [facility] Last Admin: 05/25/18 21:39 Dose: 1 applic Bisacodyl (Dulcolax -) 5 mg PO DAILY [facility] Last Admin: 05/25/18 11:14 Dose: Not Given Collagenase (Santyl -) 1 applic TP DAILY [facility]; Protocol Last Admin: 05/25/18 11:13 Dose: 1 applic Collagenase (Santyl -) 1 applic TP BID [facility]; Protocol Last Admin: 05/25/18 21:45 Dose: 1 applic Ferrous Sulfate (Feosol -) 325 mg PO DAILY [facility] Last Admin: 05/25/18 11:13 Dose: 325 mg Piperacillin Sod/Tazobactam (Sod 3.375 gm/ Dextrose) 50 mls @ 100 mls/hr IVPB Q8H-IV [facility]; Protocol Last Admin: 05/26/18 03:00 Dose: 100 mls/hr Sodium Chloride (1/2 Normal Saline) 1,000 mls @ 75 mls/hr IV ASDIR [facility] Last Admin: 05/25/18 09:00 Dose: 75 mls/hr Dextrose (D5w -) 1,000 mls @ 83 mls/hr IV .Q12H3M [facility] Insulin Aspart (Novolog Vial Sliding Scale -) 1 vial SQ ACHS [facility]; Protocol Last Admin: 05/26/18 06:31 Dose: Not Given Insulin Detemir (Levemir Vial) 12 units SQ DAILY@0700 [facility] Last Admin: 05/26/18 07:02 Dose: 12 units Lorazepam (Ativan -) 0.5 mg PO BID [facility] Last Admin: 05/25/18 21:39 Dose: 0.5 mg Multivitamins/Minerals (Theragran-M) 1 each PO DAILY [facility] Last Admin: 05/25/18 11:13 Dose: 1 each Polyethylene Glycol (Miralax (For Daily Use) -) 17 gm PO BID [facility] Last Admin: 05/25/18 21:42 Dose: Not Given Propranolol HCl (Inderal -) 40 mg PO BID [facility] Last Admin: 05/25/18 21:42 Dose: 40 mg Risperidone (Risperdal -) 0.25 mg PO BID [facility] Last Admin: 05/25/18 21:43 Dose: 0.25 mg Senna (Senna Oral Solution -) 13.2 mg PO HS [facility] Last Admin: 05/25/18 21:46 Dose: Not Given - Objective Vital Signs: Vital Signs Temperature 99.0 F 05/26/18 06:00 Pulse Rate 91 H 05/26/18 06:00 Respiratory Rate 20 05/26/18 06:00 Blood Pressure 120/55 L 05/26/18 06:00 O2 Sat by Pulse Oximetry (%) 95 05/25/18 20:19 Constitutional: Yes: No Distress, Calm Cardiovascular: Yes: Regular Rate and Rhythm Respiratory: Yes: Regular, CTA Bilaterally Gastrointestinal: Yes: Normal Bowel Sounds, Soft Musculoskeletal: Yes: WNL Extremities: Yes: Other Wound/Incision: Yes: Dressing Dry and Intact Neurological: Yes: Alert Labs: CBC, BMP 05/26/18 08:05 05/26/18 08:05 Assessment/Plan Problem List - Problems (1) Sepsis Code(s): A41.9 - SEPSIS, UNSPECIFIED ORGANISM (2) Pressure ulcer Code(s): L89.90 - PRESSURE ULCER OF UNSPECIFIED SITE, UNSPECIFIED STAGE Qualifiers: Pressure injury location: sacral region Pressure injury stage: stage 4 Qualified Code(s): L89.154 - Pressure ulcer of sacral region, stage 4 (3) Multiple open wounds Code(s): T07.XXXA - UNSPECIFIED MULTIPLE INJURIES, INITIAL ENCOUNTER (4) AMILCAR (acute kidney injury) Code(s): N17.9 - ACUTE KIDNEY FAILURE, UNSPECIFIED (5) Transaminitis Code(s): R74.0 - NONSPEC ELEV OF LEVELS OF TRANSAMNS & LACTIC ACID DEHYDRGNSE (6) HTN (hypertension) Code(s): I10 - ESSENTIAL (PRIMARY) HYPERTENSION Qualifiers: Hypertension type: essential hypertension Qualified Code(s): I10 - Essential (primary) hypertension (7) Diabetes Code(s): E11.9 - TYPE 2 DIABETES MELLITUS WITHOUT COMPLICATIONS Qualifiers: Diabetes mellitus type: type 2 Diabetes mellitus mcfp insulin use: with mcfp use Diabetes mellitus complication status: with skin complications Diabetes mellitus complication detail: with foot ulcer Qualified Code(s): E11.621 - Type 2 diabetes mellitus with foot ulcer; L97.509 - Non-pressure chronic ulcer of other part of unspecified foot with unspecified severity; Z79.4 - custodial (current) use of insulin (8) CKD (chronic kidney disease) Code(s): N18.9 - CHRONIC KIDNEY DISEASE, UNSPECIFIED Qualifiers: Chronic kidney disease stage: stage 2 (mild) Qualified Code(s): N18.2 - Chronic kidney disease, stage 2 (mild) (9) Anemia Code(s): D64.9 - ANEMIA, UNSPECIFIED Qualifiers: Chronic kidney disease stage: stage 3 (moderate) (10) Bipolar 1 disorder Code(s): F31.9 - BIPOLAR DISORDER, UNSPECIFIED (11) History of DVT (deep vein thrombosis) Code(s): Z86.718 - PERSONAL HISTORY OF OTHER VENOUS THROMBOSIS AND EMBOLISM (12) Bacteremia Code(s): R78.81 - BACTEREMIA (13) Acute blood loss anemia Code(s): D62 - ACUTE POSTHEMORRHAGIC ANEMIA plan continue current mgmt patient can be send back need to complete one more day of abx wound care rest as per the team
--- NOTE | 2018-05-26 11:03 | PN ---
Progress Note, Physician Chief Complaint: Pt lying in bed. very thirsty, requesting water. currently denies any chest pain , sob, n/v/d - Current Medication List Current Medications: Active Medications Acetaminophen (Tylenol -) 650 mg PO Q6H PRN PRN Reason: PAIN LEVEL 1-5 Last Admin: 05/25/18 18:50 Dose: 650 mg Amino Acids (Prosource No Carb Liquid Pkt) 30 ml PO BID@0800,1730 [facility] Last Admin: 05/26/18 08:50 Dose: 30 ml Apixaban (Eliquis -) 2.5 mg PO BID [facility] Last Admin: 05/25/18 21:39 Dose: 2.5 mg Ascorbic Acid (Vitamin C -) 500 mg PO DAILY [facility] Last Admin: 05/25/18 11:12 Dose: 500 mg Bacitracin (Bacitracin -) 1 applic TP BID [facility] Last Admin: 05/25/18 21:39 Dose: 1 applic Bisacodyl (Dulcolax -) 5 mg PO DAILY [facility] Last Admin: 05/25/18 11:14 Dose: Not Given Collagenase (Santyl -) 1 applic TP DAILY [facility]; Protocol Last Admin: 05/25/18 11:13 Dose: 1 applic Collagenase (Santyl -) 1 applic TP BID [facility]; Protocol Last Admin: 05/25/18 21:45 Dose: 1 applic Ferrous Sulfate (Feosol -) 325 mg PO DAILY [facility] Last Admin: 05/25/18 11:13 Dose: 325 mg Piperacillin Sod/Tazobactam (Sod 3.375 gm/ Dextrose) 50 mls @ 100 mls/hr IVPB Q8H-IV [facility]; Protocol Last Admin: 05/26/18 03:00 Dose: 100 mls/hr Insulin Aspart (Novolog Vial Sliding Scale -) 1 vial SQ ACHS [facility]; Protocol Last Admin: 05/26/18 06:31 Dose: Not Given Insulin Detemir (Levemir Vial) 12 units SQ DAILY@0700 [facility] Last Admin: 05/26/18 07:02 Dose: 12 units Lorazepam (Ativan -) 0.5 mg PO BID [facility] Last Admin: 05/25/18 21:39 Dose: 0.5 mg Multivitamins/Minerals (Theragran-M) 1 each PO DAILY [facility] Last Admin: 05/25/18 11:13 Dose: 1 each Polyethylene Glycol (Miralax (For Daily Use) -) 17 gm PO BID [facility] Last Admin: 05/25/18 21:42 Dose: Not Given Propranolol HCl (Inderal -) 40 mg PO BID [facility] Last Admin: 05/25/18 21:42 Dose: 40 mg Risperidone (Risperdal -) 0.25 mg PO BID [facility] Last Admin: 05/25/18 21:43 Dose: 0.25 mg Senna (Senna Oral Solution -) 13.2 mg PO HS [facility] Last Admin: 05/25/18 21:46 Dose: Not Given - Objective Vital Signs: Vital Signs Temperature 99.0 F 05/26/18 06:00 Pulse Rate 91 H 05/26/18 06:00 Respiratory Rate 20 05/26/18 06:00 Blood Pressure 120/55 L 05/26/18 06:00 O2 Sat by Pulse Oximetry (%) 95 05/25/18 20:19 Constitutional: Yes: Well Nourished, No Distress, Anxious Cardiovascular: Yes: WNL, Regular Rate and Rhythm Respiratory: Yes: WNL, Regular, CTA Bilaterally. No: Accessory Muscle Use, Rhonchi, SOB, Tachypnea Gastrointestinal: Yes: WNL, Normal Bowel Sounds, Soft. No: Distention, Tenderness Genitourinary: Yes: Incontinence Edema: No Integumentary: Yes: Pressure Ulcer Neurological: Yes: Alert Psychiatric: Yes: Alert Labs: CBC, BMP 05/26/18 08:05 05/26/18 08:05 Problem List - Problems (1) Sepsis Code(s): A41.9 - SEPSIS, UNSPECIFIED ORGANISM (2) Pressure ulcer Code(s): L89.90 - PRESSURE ULCER OF UNSPECIFIED SITE, UNSPECIFIED STAGE Qualifiers: Pressure injury location: sacral region Pressure injury stage: stage 4 Qualified Code(s): L89.154 - Pressure ulcer of sacral region, stage 4 (3) Multiple open wounds Code(s): T07.XXXA - UNSPECIFIED MULTIPLE INJURIES, INITIAL ENCOUNTER (4) AMILCAR (acute kidney injury) Code(s): N17.9 - ACUTE KIDNEY FAILURE, UNSPECIFIED (5) Transaminitis Code(s): R74.0 - NONSPEC ELEV OF LEVELS OF TRANSAMNS & LACTIC ACID DEHYDRGNSE (6) HTN (hypertension) Code(s): I10 - ESSENTIAL (PRIMARY) HYPERTENSION Qualifiers: Hypertension type: essential hypertension Qualified Code(s): I10 - Essential (primary) hypertension (7) Diabetes Code(s): E11.9 - TYPE 2 DIABETES MELLITUS WITHOUT COMPLICATIONS Qualifiers: Diabetes mellitus type: type 2 Diabetes mellitus exterminator termite insulin use: with custodial use Diabetes mellitus complication status: with skin complications Diabetes mellitus complication detail: with foot ulcer Qualified Code(s): E11.621 - Type 2 diabetes mellitus with foot ulcer; L97.509 - Non-pressure chronic ulcer of other part of unspecified foot with unspecified severity; Z79.4 - senior care (current) use of insulin (8) CKD (chronic kidney disease) Code(s): N18.9 - CHRONIC KIDNEY DISEASE, UNSPECIFIED Qualifiers: Chronic kidney disease stage: stage 2 (mild) Qualified Code(s): N18.2 - Chronic kidney disease, stage 2 (mild) (9) Anemia Code(s): D64.9 - ANEMIA, UNSPECIFIED Qualifiers: Chronic kidney disease stage: stage 3 (moderate) (10) Bipolar 1 disorder Code(s): F31.9 - BIPOLAR DISORDER, UNSPECIFIED (11) History of DVT (deep vein thrombosis) Code(s): Z86.718 - PERSONAL HISTORY OF OTHER VENOUS THROMBOSIS AND EMBOLISM (12) Bacteremia Code(s): R78.81 - BACTEREMIA (13) Acute blood loss anemia Code(s): D62 - ACUTE POSTHEMORRHAGIC ANEMIA (14) Hypokalemia Code(s): E87.6 - HYPOKALEMIA (15) Hypernatremia Code(s): E87.0 - HYPEROSMOLALITY AND HYPERNATREMIA (16) Functional quadriplegia Code(s): R53.2 - FUNCTIONAL QUADRIPLEGIA Assessment/Plan (1) Sepsis Assessment/Plan: improved blood cultures positive 2/4- ecoli deep wound pressure ulcers- source of infection cdiff negative Zosyn day 7 ID following Code(s): A41.9 - SEPSIS, UNSPECIFIED ORGANISM (2) Pressure ulcer Assessment/Plan: sacral stage 4, b/l heels unstageable, b/l buttocks-stage 2 s/p debridement wound culture grew ecoli, vre as above Code(s): L89.90 - PRESSURE ULCER OF UNSPECIFIED SITE, UNSPECIFIED STAGE Qualifiers: Pressure injury location: sacral region Pressure injury stage: stage 4 Qualified Code(s): L89.154 - Pressure ulcer of sacral region, stage 4 (3) Functional quadriplegia Assessment/Plan: specialty bed reposition q2hrs Code(s): R53.2 - FUNCTIONAL QUADRIPLEGIA (4) AMILCAR (acute kidney injury) Assessment/Plan: resolved Code(s): N17.9 - ACUTE KIDNEY FAILURE, UNSPECIFIED (5) Transaminitis Assessment/Plan: improved Code(s): R74.0 - NONSPEC ELEV OF LEVELS OF TRANSAMNS & LACTIC ACID DEHYDRGNSE (6) HTN (hypertension) Assessment/Plan: controlled continue propanolol Code(s): I10 - ESSENTIAL (PRIMARY) HYPERTENSION Qualifiers: Hypertension type: essential hypertension Qualified Code(s): I10 - Essential (primary) hypertension (7) Diabetes Assessment/Plan: w/ multiple complications ckd, ulcers bgm, insulin sliding scale levemir Code(s): E11.9 - TYPE 2 DIABETES MELLITUS WITHOUT COMPLICATIONS Qualifiers: Diabetes mellitus type: type 2 Diabetes mellitus custodial insulin use: with exterminator termite use Diabetes mellitus complication status: with skin complications Diabetes mellitus complication detail: with foot ulcer Qualified Code(s): E11.621 - Type 2 diabetes mellitus with foot ulcer; L97.509 - Non-pressure chronic ulcer of other part of unspecified foot with unspecified severity; Z79.4 - exterminator termite (current) use of insulin (8) CKD (chronic kidney disease) Assessment/Plan: baseline cr 1.3 per records Code(s): N18.9 - CHRONIC KIDNEY DISEASE, UNSPECIFIED Qualifiers: Chronic kidney disease stage: stage 2 (mild) Qualified Code(s): N18.2 - Chronic kidney disease, stage 2 (mild) (9) Anemia Assessment/Plan: hg/hct stable iron level low/tibc low/hemeoccult neg suspect 2/2 ckd/chronic disease continue po iron consider IV iron after d/c monitor Code(s): D64.9 - ANEMIA, UNSPECIFIED Qualifiers: Chronic kidney disease stage: stage 3 (moderate) (10) Bipolar 1 disorder Assessment/Plan: stable continue risperidone Code(s): F31.9 - BIPOLAR DISORDER, UNSPECIFIED (11) History of DVT (deep vein thrombosis) Assessment/Plan: anticoagulated on eliquis Code(s): Z86.718 - PERSONAL HISTORY OF OTHER VENOUS THROMBOSIS AND EMBOLISM (12) Acute blood loss anemia Assessment/Plan: hg/hct stable s/p 1unit prbcs Code(s): D62 - ACUTE POSTHEMORRHAGIC ANEMIA (14) Hypokalemia Assessment/Plan: resolved Code(s): E87.6 - HYPOKALEMIA (15) Hypernatremia Assessment/Plan: symptomatic, hyperosmolar increased thirst/mild confusion pt started on D5 IVF monitor BMP monitor Code(s): E87.0 - HYPEROSMOLALITY AND HYPERNATREMIA Dispo: SNF
[2018-05-26] MEDS: risperiDONE 0.25 MG TABLET (FP) PO SCH ×2 (11:07→21:58)
[2018-05-26] MEDS: MULTIVITAMINS THER W-MINERALS COMBO TABLET (FP) PO SCH (11:07)
[2018-05-26] MEDS: LORazepam 0.5 MG TABLET PO SCH ×2 (11:07→21:55)
[2018-05-26] MEDS: ASCORBIC ACID 500 MG TABLET (FP) PO SCH (11:07)
[2018-05-26] MEDS: APIXABAN 2.5 MG TABLET PO SCH ×2 (11:07→21:55)
[2018-05-26] MEDS: FERROUS SO4 325 MG TABLET (FP) PO SCH (11:07)
[2018-05-26] MEDS: BACITRACIN 15 GM TUBE TOPICAL OINTMENT TP SCH ×2 (11:08→22:00)
[2018-05-26] MEDS: COLLAGENASE CLOSTRIDIUM HIST. 30 GRAMS TUBE TP SCH ×3 (11:11→21:58)
[2018-05-26] MEDS: BISACODYL 5 MG TABLET.DR (FP) PO SCH (11:11)
[2018-05-26] MEDS: POLYETHYLENE GLYCOL 3350 119 GM BTL PO SCH ×2 (11:11→22:00)
[2018-05-26] MEDS ORDERED: INSULIN (NOVOLOG) ASPART 100 UNITS/ML 10ML VIAL ONE (12:02)
[2018-05-26 16:35] LABS: ANION GAP 6 MMOL/L (8-16); BLOOD UREA NITROGEN 24 mg/dL (7-18); CALCIUM 7.7 mg/dL (8.5-10.1); CHLORIDE 126 mmol/L (98-107); CO2 17 mmol/L (21-32); CREATININE 1.1 mg/dL (0.55-1.3); GLUCOSE,RANDOM 164 mg/dL (74-106); SODIUM 148 mmol/L (136-145)
[2018-05-26] MEDS: SENNOSIDES 8.8 MG/5 ML BULK BOTTLE PO SCH (21:55)
[2018-05-27] MEDS ORDERED: DEXTROSE 5%-WATER - 50 ML IVPB ONE ×3 (00:54→17:04)
[2018-05-27] MEDS ORDERED: PIPERACILLIN/TAZOBACTAM 3.375 GM VIAL IVPB ONE ×3 (00:54→17:04)
[2018-05-27] MEDS: PIPERACILLIN/TAZOB 3.375 GM 3.375 GM in DEXTROSE 5%-WATER - 50 ML IVPB SCH ×3 (02:48→17:05)
[2018-05-27] MEDS: INSULIN SLIDING SCALE (NOVOLOG) 1 VIAL SQ SCH ×3 (06:35→17:12)
[2018-05-27] MEDS: INSULIN (LEVEMIR) 100 UNITS/ML UNITS SQ SCH (06:35)
[2018-05-27] MEDS ORDERED: INSULIN (NOVOLOG) ASPART 100 UNITS/ML 10ML VIAL ONE (06:43)
[2018-05-27 07:58] LABS: BASO % 0.9 % (0-2.0); EOS % 1.8 % (0-4.5); HEMATOCRIT 29.6 % (32.4-45.2); HEMOGLOBIN 9.4 GM/dL (10.7-15.3); LYMPH % 42.9 % (8-40); MCH 29.2 pg (25.7-33.7); MCHC 31.8 g/dl (32.0-36.0); MEAN CELL VOLUME 91.7 fl (80-96); MONO % 9.4 % (3.8-10.2); PLATELET COUNT 394 K/MM3 (134-434); RBC 3.23 M/mm3 (3.60-5.2); RDW 16.1 % (11.6-15.6); WHITE BLOOD COUNT 4.3 K/mm3 (4.0-10.0)
[2018-05-27 08:13] LABS: ANION GAP 9 MMOL/L (8-16); BLOOD UREA NITROGEN 23 mg/dL (7-18); CALCIUM 8.2 mg/dL (8.5-10.1); CHLORIDE 123 mmol/L (98-107); CO2 17 mmol/L (21-32); CREATININE 1.1 mg/dL (0.55-1.3); GLUCOSE,RANDOM 142 mg/dL (74-106); MAGNESIUM 1.9 mg/dL (1.8-2.4); POTASSIUM 3.9 mmol/L (3.5-5.1); SODIUM 149 mmol/L (136-145)
[2018-05-27] MEDS: AMINO ACIDS/PROTEIN HYDROLYS 30 ML LIQUID.PKT PO SCH ×2 (08:40→17:05)
[2018-05-27 08:48] VITALS: PULSE 75
[2018-05-27] MEDS ORDERED: PT OWN MED DRAWER 7, Y5N ONE (09:57)
[2018-05-27] MEDS: ASCORBIC ACID 500 MG TABLET (FP) PO SCH (10:02)
[2018-05-27] MEDS: BISACODYL 5 MG TABLET.DR (FP) PO SCH (10:02)
[2018-05-27] MEDS: APIXABAN 2.5 MG TABLET PO SCH (10:02)
[2018-05-27] MEDS: FERROUS SO4 325 MG TABLET (FP) PO SCH (10:02)
[2018-05-27] MEDS: MULTIVITAMINS THER W-MINERALS COMBO TABLET (FP) PO SCH (10:02)
[2018-05-27] MEDS: POLYETHYLENE GLYCOL 3350 119 GM BTL PO SCH (10:02)
[2018-05-27] MEDS: LORazepam 0.5 MG TABLET PO SCH (10:02)
[2018-05-27] MEDS: risperiDONE 0.25 MG TABLET (FP) PO SCH (10:03)
[2018-05-27] MEDS: BACITRACIN 15 GM TUBE TOPICAL OINTMENT TP SCH (10:04)
--- NOTE | 2018-05-27 11:35 | DS ---
Physical Examination Vital Signs: Vital Signs Temperature 98.5 F 05/27/18 08:47 Pulse Rate 75 05/27/18 08:47 Respiratory Rate 20 05/27/18 08:47 Blood Pressure 129/75 05/27/18 08:47 O2 Sat by Pulse Oximetry (%) 98 05/26/18 21:00 Constitutional: Yes: No Distress Cardiovascular: Yes: Regular Rate and Rhythm Respiratory: Yes: WNL, Regular, CTA Bilaterally. No: Rhonchi, SOB, Tachypnea, Wheezes Gastrointestinal: Yes: WNL, Normal Bowel Sounds, Soft. No: Distention, Tenderness Renal/: Yes: Incontinence Edema: No Integumentary: Yes: Pressure Ulcer Wound/Incision: Yes: Dressing Dry and Intact Neurological: Yes: WNL, Alert, Oriented Psychiatric: Yes: WNL, Alert, Oriented Labs: CBC, BMP 05/27/18 06:30 05/27/18 06:30 Discharge Summary Reason For Visit: ACUTE KIDNEY INJURY Current Active Problems AMILCAR (acute kidney injury) (Acute) Acute blood loss anemia (Acute) Anemia (Acute) Bacteremia (Acute) Bipolar 1 disorder (Acute) CKD (chronic kidney disease) (Acute) Diabetes (Acute) Functional quadriplegia (Acute) HLD (hyperlipidemia) (Acute) HTN (hypertension) (Acute) History of DVT (deep vein thrombosis) (Acute) Hypernatremia (Acute) Hypernatremia (Acute) Hypokalemia (Acute) Multiple open wounds (Acute) Pressure ulcer (Acute) Sepsis (Acute) Transaminitis (Acute) Hospital Course: 73 year old female admitted with sepsis-ecoli. Multiple pressure ulcers as source. BS grew ecoli, wound culture grew ecoli/vre. Pt underwent debridement of sacral pressure ulcer by vascular surgery. Received 7 days of zosyn by ID. Pt afebrile, vitals stable, labs stable. repeat blood cultures negative. cardiac echo without any signs of endocarditis. Pt found to have loose bms last 2 days, cdiff negative. Hypernatremia improved, recheck bmp on Friday. Otherwise, pt is medically stable for discharge to SNF. Condition: Fair - Instructions Diet, Activity, Other Instructions: Continue heel protective devices with alleyven/protector pads and off load pressure to the heels vascular surgery follow up as before activity as tolerated, reposition q2hrs check BMP on friday Referrals: Lauren Ohara MD [Staff Physician] - Chay Wills MD [Primary Care Provider] - Disposition: ALF FACILITY - Home Medications Comprehensive Discharge Medication List: Ambulatory Orders Aa/Hydrolyzed Collagen, Whey [Lps 15-30 Liquid] 30 ml PO BID 05/19/18 Acetaminophen [Tylenol] 650 mg PO QID PRN 05/19/18 Amlodipine Besylate [Norvasc -] 10 mg PO DAILY 05/19/18 Apixaban [Eliquis -] 2.5 mg PO BID 05/19/18 Ascorbic Acid [Vitamin C -] 500 mg PO DAILY 05/19/18 Bacitracin - [Bacitracin Topical Ointment -] 1 applic TP BID 05/19/18 Bisacodyl [Dulcolax -] 5 mg PO DAILY 05/19/18 Collagenase Clostridium Hist. [Santyl] 1 applic TP BID 05/19/18 Ferrous Sulfate [Feosol] 1 tab PO DAILY 05/19/18 Insulin Glargine,Hum.rec.anlog [Lantus Solostar] 12 unit SQ DAILY 05/19/18 Insulin Lispro [Humalog] 0 unit SQ ASDIR 05/19/18 LORazepam [Ativan] 0.5 mg PO BID 05/19/18 Mvit,Calcium,Iron,Mins/A.acids [K-[place] Double Strength Capsule] 1 each PO DAILY 05/19/18 Polyethylene Glycol 3350 [Miralax (For Daily Use) -] 17 gm PO DAILY 05/19/18 Propranolol HCl 40 mg PO BID 05/19/18 Risperidone [Risperdal] 0.25 mg PO BID 05/19/18 Senna [place] Extract [Senna] 7.5 ml PO HS 05/19/18 Sulfamethoxazole/Trimethoprim [Bactrim Ds -] 1 tab PO BID 05/19/18
[2018-05-27] MEDS: COLLAGENASE CLOSTRIDIUM HIST. 30 GRAMS TUBE TP SCH ×2 (11:57)
--- NOTE | 2018-05-27 12:32 | PN ---
Progress Note, Physician History of Present Illness: patient stable no new issues - Current Medication List Current Medications: Active Medications Acetaminophen (Tylenol -) 650 mg PO Q6H PRN PRN Reason: PAIN LEVEL 1-5 Last Admin: 05/25/18 18:50 Dose: 650 mg Amino Acids (Prosource No Carb Liquid Pkt) 30 ml PO BID@0800,1730 [facility] Last Admin: 05/27/18 08:40 Dose: 30 ml Apixaban (Eliquis -) 2.5 mg PO BID [facility] Last Admin: 05/27/18 10:02 Dose: 2.5 mg Ascorbic Acid (Vitamin C -) 500 mg PO DAILY [facility] Last Admin: 05/27/18 10:02 Dose: 500 mg Bacitracin (Bacitracin -) 1 applic TP BID [facility] Last Admin: 05/27/18 10:04 Dose: 1 applic Bisacodyl (Dulcolax -) 5 mg PO DAILY [facility] Last Admin: 05/27/18 10:02 Dose: 5 mg Collagenase (Santyl -) 1 applic TP DAILY [facility]; Protocol Last Admin: 05/27/18 11:57 Dose: 1 applic Collagenase (Santyl -) 1 applic TP BID [facility]; Protocol Last Admin: 05/27/18 11:57 Dose: 1 applic Ferrous Sulfate (Feosol -) 325 mg PO DAILY [facility] Last Admin: 05/27/18 10:02 Dose: 325 mg Piperacillin Sod/Tazobactam (Sod 3.375 gm/ Dextrose) 50 mls @ 100 mls/hr IVPB Q8H-IV [facility]; Protocol Last Admin: 05/27/18 10:04 Dose: 100 mls/hr Insulin Aspart (Novolog Vial Sliding Scale -) 1 vial SQ ACHS [facility]; Protocol Last Admin: 05/27/18 11:56 Dose: 2 units Insulin Detemir (Levemir Vial) 12 units SQ DAILY@0700 [facility] Last Admin: 05/27/18 06:35 Dose: 12 units Lorazepam (Ativan -) 0.5 mg PO BID [facility] Last Admin: 05/27/18 10:02 Dose: 0.5 mg Multivitamins/Minerals (Theragran-M) 1 each PO DAILY [facility] Last Admin: 05/27/18 10:02 Dose: 1 each Polyethylene Glycol (Miralax (For Daily Use) -) 17 gm PO BID [facility] Last Admin: 05/27/18 10:02 Dose: 17 grams Propranolol HCl (Inderal -) 40 mg PO BID [facility] Last Admin: 05/27/18 10:03 Dose: 40 mg Risperidone (Risperdal -) 0.25 mg PO BID [facility] Last Admin: 05/27/18 10:03 Dose: 0.25 mg Senna (Senna Oral Solution -) 13.2 mg PO HS [facility] Last Admin: 05/26/18 21:55 Dose: 13.2 mg - Objective Vital Signs: Vital Signs Temperature 98.5 F 05/27/18 08:47 Pulse Rate 75 05/27/18 08:47 Respiratory Rate 20 05/27/18 08:47 Blood Pressure 129/75 05/27/18 08:47 O2 Sat by Pulse Oximetry (%) 98 05/26/18 21:00 Constitutional: Yes: No Distress Neck: Yes: Supple Cardiovascular: Yes: S1, S2 Gastrointestinal: Yes: Normal Bowel Sounds, Soft Musculoskeletal: Yes: Other Extremities: Yes: Other Neurological: Yes: Alert Labs: CBC, BMP 05/27/18 06:30 05/27/18 06:30 Assessment/Plan Problem List - Problems (1) Sepsis Code(s): A41.9 - SEPSIS, UNSPECIFIED ORGANISM (2) Pressure ulcer Code(s): L89.90 - PRESSURE ULCER OF UNSPECIFIED SITE, UNSPECIFIED STAGE Qualifiers: Pressure injury location: sacral region Pressure injury stage: stage 4 Qualified Code(s): L89.154 - Pressure ulcer of sacral region, stage 4 (3) Multiple open wounds Code(s): T07.XXXA - UNSPECIFIED MULTIPLE INJURIES, INITIAL ENCOUNTER (4) AMILCAR (acute kidney injury) Code(s): N17.9 - ACUTE KIDNEY FAILURE, UNSPECIFIED (5) Transaminitis Code(s): R74.0 - NONSPEC ELEV OF LEVELS OF TRANSAMNS & LACTIC ACID DEHYDRGNSE (6) HTN (hypertension) Code(s): I10 - ESSENTIAL (PRIMARY) HYPERTENSION Qualifiers: Hypertension type: essential hypertension Qualified Code(s): I10 - Essential (primary) hypertension (7) Diabetes Code(s): E11.9 - TYPE 2 DIABETES MELLITUS WITHOUT COMPLICATIONS Qualifiers: Diabetes mellitus type: type 2 Diabetes mellitus terminal gauger insulin use: with terminal gauger use Diabetes mellitus complication status: with skin complications Diabetes mellitus complication detail: with foot ulcer Qualified Code(s): E11.621 - Type 2 diabetes mellitus with foot ulcer; L97.509 - Non-pressure chronic ulcer of other part of unspecified foot with unspecified severity; Z79.4 - penitentiary (current) use of insulin (8) CKD (chronic kidney disease) Code(s): N18.9 - CHRONIC KIDNEY DISEASE, UNSPECIFIED Qualifiers: Chronic kidney disease stage: stage 2 (mild) Qualified Code(s): N18.2 - Chronic kidney disease, stage 2 (mild) (9) Anemia Code(s): D64.9 - ANEMIA, UNSPECIFIED Qualifiers: Chronic kidney disease stage: stage 3 (moderate) (10) Bipolar 1 disorder Code(s): F31.9 - BIPOLAR DISORDER, UNSPECIFIED (11) History of DVT (deep vein thrombosis) Code(s): Z86.718 - PERSONAL HISTORY OF OTHER VENOUS THROMBOSIS AND EMBOLISM (12) Bacteremia Code(s): R78.81 - BACTEREMIA (13) Acute blood loss anemia Code(s): D62 - ACUTE POSTHEMORRHAGIC ANEMIA plan continue current mgmt patient can be send back need to complete one more day of abx wound care rest as per the team
[2018-05-27 14:09] VITALS: BP 146/75; TEMP 98.3
--- NOTE | 2018-06-17 15:16 | OP ---
DATE OF OPERATION: 05/21/2018 PREOPERATIVE DIAGNOSIS: Stage 4 necrotic sacral ulcer. POSTOPERATIVE DIAGNOSIS: Stage 4 necrotic sacral ulcer. PROCEDURE: Excisional debridement sacrum, skin, subcutaneous tissue, and muscle. SURGEON: Romero Moran DO ANESTHESIA: Fractional. BLOOD LOSS: 20 mL. DESCRIPTION OF PROCEDURE: The patient is a 73-year-old female who comes from the long term and has a stage 4 necrotic ulcer that is foul smelling. It was decided that she would need debridement. The patient's family was consented for the procedure understanding all risks, benefits, and alternatives, and the patient was brought to the operating room. Once in the operating room, she was laid on the operating table in supine manner and then moved to right side down. We then prepped and draped the stage 4 sacral ulcer with Betadine in a sterile surgical manner. We then went ahead and used a No. 15 blade and sharply debrided away the skin, subcutaneous tissue, and the muscle that was necrotic. Necrotic tissue was sent to Pathology. We were able to take down all of the necrotic tissue using a 15 blade. The wound was then well irrigated, and we were able to place saline-moist dressings in the wound with dry 4 x 4's and ABD pads and tape was placed. The patient tolerated the procedure with no complications. The patient was transferred to the PACU in stable condition. Total blood loss 20 mL. ROMERO MORAN DO HEAD [employer]OL[employer] PROFESSIONAL/[id number]
== END 2018-05-27 19:20 | DRG 853 ==
LOC: JER 18:44 → JERBED 21:59 → J6S 05-20 00:23 → UNDODISIN 05-25 17:46
PROVIDERS: ADMIT Internal Medicine; ATTEND Internal Medicine
PROC: 0KBN0ZZ Excision of Right Hip Muscle, Open Approach (ICD-10-PCS; principal; 2018-05-21 16:00)
PROC: 30233N1 Transfusion of Nonautologous Red Blood Cells into Peripheral Vein, Percutaneous Approach (ICD-10-PCS; 2018-05-22)
DX: A41.51 Sepsis due to Escherichia coli [E. coli] (principal); L89.154 Pressure ulcer of sacral region, stage 4; R53.2 Functional quadriplegia; L97.418 Non-pressure chronic ulcer of right heel and midfoot with other specified severity; L97.428 Non-pressure chronic ulcer of left heel and midfoot with other specified severity; N17.9 Acute kidney failure, unspecified; D62 Acute posthemorrhagic anemia; E87.0 Hyperosmolality and hypernatremia; E11.621 Type 2 diabetes mellitus with foot ulcer; F31.9 Bipolar disorder, unspecified; F41.9 Anxiety disorder, unspecified; E78.5 Hyperlipidemia, unspecified; E87.6 Hypokalemia; R74.0 Nonspecific elevation of levels of transaminase and lactic acid dehydrogenase [LDH]; I12.9 Hypertensive chronic kidney disease with stage 1 through stage 4 chronic kidney disease, or unspecified chronic kidney disease; E11.22 Type 2 diabetes mellitus with diabetic chronic kidney disease; N18.2 Chronic kidney disease, stage 2 (mild); B96.20 Unspecified Escherichia coli [E. coli] as the cause of diseases classified elsewhere; D63.8 Anemia in other chronic diseases classified elsewhere; L89.322 Pressure ulcer of left buttock, stage 2; L89.312 Pressure ulcer of right buttock, stage 2; Z86.718 Personal history of other venous thrombosis and embolism
CPT/HCPCS: 36415; 36430; 71045-TC-FY; 80048; 80053; 80076; 82272; 82728; 82962; 83540; 83550; 83605; 83735; 83930; 84100; 84443; 85025; 85044; 85651; 86140; 86850; 86900; 86901; 86922; 87040; 87070; 87077; 87186; 87205; 87324; 87449; 88304-TC; 93005; 93010; 93306-TC; 94760; 97161-GP; 99285-25; J0131; J7030; P9038; P9058

== ENCOUNTER 2018-06-11 11:58 | Inpatient (IN) | payer OTHER ==
--- NOTE | 2018-06-11 13:06 | PDOC ---
History of Present Illness - General History Source: Patient, [facility] Records - History of Present Illness Initial Comments: 06/11/18 12:59 73F with pmh of DM2, HTN, pressure ulcers. DVTs, on Eliquis, sent from [facility] sent for failure to thrive and worsening or pressure ulcer wounds. Patient is contracted, unable to walk, possible hx of CVA, undocumented. Recent admission for Sepsis due to E. Coli bacteremia in April seen by Drs. Ohara and Romero Solis, discharge May 27. Seen last week on 06/04/18 at [facility] for her sacral and buttocks wounds by Dr. Ayon who recommended hydrogel packing daily with border gauze and Calmoseptine PRN with air mattress and frequent repositioning/offload site. Seen on 05/30/18 by Podiatry clinic for feet and leg pressure ulcers by Dr. Tian , Leonie [phone] Patient is not in pain, states she is feeling well, wants pizza, good appetite. 06/11/18 13:29 <Florencio Wilburn - Last Filed: 06/11/18 15:58> <Radha Morales - Last Filed: 06/11/18 16:01> - General Chief Complaint: Weakness Stated Complaint: Weakness Time Seen by Provider: 06/11/18 12:12 Past History - Past Medical History Anemia: Yes Cardiac Disorders: Yes (A-fib) COPD: No Diabetes: Yes GI Disorders: Yes (Constipation) HTN: Yes - Suicide/Smoking/Psychosocial Hx Smoking History: Unknown if ever smoked Have you smoked in the past 12 months: No Information on smoking cessation initiated: No Hx Alcohol Use: No Drug/Substance Use Hx: No Substance Use Type: None <Florencio Wilburn - Last Filed: 06/11/18 15:58> <Radha Morales - Last Filed: 06/11/18 16:01> - Past Medical History Allergies/Adverse Reactions: Allergies Allergy/AdvReac Type Severity Reaction Status Date / Time No Known Allergies Allergy Verified 05/19/18 18:55 Home Medications: Ambulatory Orders Aa/Hydrolyzed Collagen, Whey [Lps 15-30 Liquid] 30 ml PO BID 05/19/18 Acetaminophen [Tylenol] 650 mg PO QID PRN 05/19/18 Apixaban [Eliquis -] 2.5 mg PO BID 05/19/18 Ascorbic Acid [Vitamin C -] 500 mg PO DAILY 05/19/18 Bacitracin - [Bacitracin Topical Ointment -] 1 applic TP BID 05/19/18 Bisacodyl [Bisacodyl -] 5 mg PO DAILY 05/19/18 Collagenase Clostridium Hist. [Santyl -] 1 applic TP BID 05/19/18 Ferrous Sulfate [Feosol] 1 tab PO DAILY 05/19/18 Insulin Glargine,Hum.rec.anlog [Lantus Solostar] 14 unit SQ DAILY 05/19/18 Insulin Lispro [Humalog Kwikpen U-100] 0 unit SQ ASDIR 05/19/18 LORazepam [Ativan] 0.5 mg PO BID 05/19/18 Mvit,Calcium,Iron,Mins/A.acids [[place] Double Strength Capsule] 1 each PO DAILY 05/19/18 Polyethylene Glycol 3350 [Miralax 119 gm Btl -] 17 gm PO DAILY 05/19/18 Propranolol HCl 40 mg PO BID 05/19/18 Risperidone [Risperdal -] 0.25 mg PO BID 05/19/18 Senna [place] Extract [Senna] 7.5 ml PO HS 05/19/18 Albuterol 2.5/Ipratropium 0.5 [Duoneb -] 1 amp NEB TID 06/11/18 Menthol/Zinc Oxide [Calmoseptine Ointment] 3.5 gm TP HS 06/11/18 Review of Systems - Review of Systems Able to Perform ROS?: Yes Is the patient limited [place] proficient: No Constitutional: No: Symptoms Reported HEENTM: No: Symptoms Reported Respiratory: Yes: Cough ABD/GI: No: Symptoms Reported : No: Symptoms Reported Musculoskeletal: No: Symptoms Reported Integumentary: Yes: See HPI Neurological: Yes: Pre-Existing Deficit All Other Systems: Reviewed and Negative <Florencio Wilburn - Last Filed: 06/11/18 15:58> *Physical Exam - Vital Signs Last Vital Signs Temp Pulse Resp BP Pulse Ox 97.6 F 70 16 120/70 100 06/11/18 12:19 06/11/18 12:19 06/11/18 12:19 06/11/18 12:19 06/11/18 12:19 - Physical Exam Integumentary: positive: Other (-Stage 4 left buttock pressure ulcer 6x7x2.7 with granulation tissue. No drainage. -Sacral Stage 2 pressure ulcer. -Stage 3 Right distal buttock -Right leg pressure ulcer 9x7x0.5cm stage 3 secondary to DVT, no purulence -Bilateral pressure ulcers of the heels with sloughing and apparent necrotic tissues. ) <Florencio Wilburn - Last Filed: 06/11/18 15:58> - Vital Signs Last Vital Signs Temp Pulse Resp BP Pulse Ox 97.6 F 70 16 120/70 100 06/11/18 12:19 06/11/18 12:19 06/11/18 12:19 06/11/18 12:19 06/11/18 12:19 <Radha Morales - Last Filed: 06/11/18 16:01> ED Treatment Course - LABORATORY CBC & Chemistry Diagram: 06/11/18 13:36 06/11/18 13:36 <Florencio Wilburn - Last Filed: 06/11/18 15:58> - LABORATORY CBC & Chemistry Diagram: 06/11/18 13:36 06/11/18 13:36 - ADDITIONAL ORDERS Additional order review: Laboratory Results 06/11/18 06/11/18 06/11/18 14:45 13:36 13:36 Sodium 136 Potassium 5.0 Chloride 105 Carbon Dioxide 21 Anion Gap 10 BUN 13 Creatinine 1.0 Creat Clearance w eGFR 54.50 Random Glucose 265 H Lactic Acid 2.1 H Calcium 8.4 L Total Bilirubin 0.2 AST 71 H ALT 103 H Alkaline Phosphatase 200 H Total Protein 5.7 L Albumin 1.6 L Urine Color Straw Urine Appearance Clear Urine pH 6.0 Ur Specific [place] 1.001 L Urine Protein Negative Urine Glucose (UA) 3+ H Urine Ketones Negative Urine Blood Negative Urine Nitrite Negative Urine Bilirubin Negative Urine Urobilinogen Negative Ur Leukocyte Esterase Negative 06/11/18 13:36 RBC 3.11 L MCV 90.3 MCHC 30.7 L RDW 18.4 H MPV 8.4 Neutrophils % 66.3 D Lymphocytes % 21.4 D Monocytes % 10.2 Eosinophils % 1.7 Basophils % 0.4 <Radha Morales - Last Filed: 06/11/18 16:01> Medical Decision Making - Medical Decision Making 06/11/18 13:30 73F with h/o multiple pressure ulcers and sepsis presents for failure to thrive and worsening of the pressure ulcers. Patient is well appearing but we will check signs of infections as the patient had relatively unremarkable vitals when she presented with sepsis last month. Will draw basic labs and cultures as well as consult with wound care for worsening of her pressure ulcer wounds. 06/11/18 15:55 Negative CXR and UA. Elevated Lactate 2.1 as well as Rectal temp of 99.9. Will give NS, Tylenol IV and Vanc-Zosyn. Will Admit to [facility]. <Florencio Wilburn - Last Filed: 06/11/18 15:58> - Medical Decision Making 06/11/18 15:46 Dr. Wills was paged and notified via phone service. 06/11/18 16:01 Dr. Romero Solis was paged and notified via phone service. <Radha Morales - Last Filed: 06/11/18 16:01> *DC/Admit/Observation/Transfer - Discharge Dispostion Decision to Admit order: Yes <Florencio Wilburn - Last Filed: 06/11/18 15:58> <Radha Morales - Last Filed: 06/11/18 16:01> Diagnosis at time of Disposition: Multiple open wounds - Referrals Referrals: Chay Wills MD [Primary Care Provider] - - Patient Instructions - Post Discharge Activity
[2018-06-11 14:02] LABS: BASO % 0.4 % (0-2.0); EOS % 1.7 % (0-4.5); HEMATOCRIT 28.1 % (32.4-45.2); HEMOGLOBIN 8.6 GM/dL (10.7-15.3); LYMPH % 21.4 % (8-40); MCH 27.8 pg (25.7-33.7); MCHC 30.7 g/dl (32.0-36.0); MEAN CELL VOLUME 90.3 fl (80-96); MEAN PLT VOLUME 8.4 fl (7.5-11.1); MONO % 10.2 % (3.8-10.2); NEUT % 66.3 % (42.8-82.8); PLATELET COUNT 521 K/MM3 (134-434); RBC 3.11 M/mm3 (3.60-5.2); RDW 18.4 % (11.6-15.6); WHITE BLOOD COUNT 9.7 K/mm3 (4.0-10.0)
[2018-06-11 14:26] LABS: ALBUMIN 1.6 g/dl (3.4-5.0); ALK PHOS 200 U/L (45-117); ANION GAP 10 MMOL/L (8-16); BILIRUBIN,TOTAL 0.2 mg/dL (0.2-1); BLOOD UREA NITROGEN 13 mg/dL (7-18); CALCIUM 8.4 mg/dL (8.5-10.1); CHLORIDE 105 mmol/L (98-107); CO2 21 mmol/L (21-32); GLUCOSE,RANDOM 265 mg/dL (74-106); SGOT/AST 71 U/L (15-37); SGPT/ALT 103 U/L (13-61); SODIUM 136 mmol/L (136-145); TOT PROT 5.7 g/dl (6.4-8.2)
[2018-06-11 15:21] LABS: URINE APPEARANCE CLEAR; URINE BILIRUBIN NEGATIVE (<2.0 mg/dL); URINE COLOR STRAW; URINE GLUCOSE (UA) 3+ (NEGATIVE); URINE KETONE NEGATIVE (NEGATIVE); URINE LEUK ESTERASE NEGATIVE (NEGATIVE); URINE NITRITE NEGATIVE (NEGATIVE); URINE PROTEIN NEGATIVE (NEGATIVE); URINE UROBILINOGEN NEGATIVE mg/dL (0.2-1.0)
[2018-06-11] MEDS ORDERED: SODIUM CHLORIDE 1,000 ML IV STA (15:44)
[2018-06-11] MEDS ORDERED: ACETAMINOPHEN 1000 MG/100 ML VIAL (NON FORMULARY) IVPB ONE (15:45)
[2018-06-11] MEDS ORDERED: PIPERACILLIN/TAZOB 3.375 GM 3.375 GM in DEXTROSE 5%-WATER - 50 ML IVPB ONE (15:46)
[2018-06-11] MEDS ORDERED: PIPERACILLIN/TAZOB 3.375 GM 3.375 GM/50 ML BAG IVPB ONE (15:48)
[2018-06-11] MEDS ORDERED: ACETAMINOPHEN INJECTION 100 ML IVPB ONE (15:48)
[2018-06-11] MEDS ORDERED: VANCOMYCIN 1 GRAM (PRE-DOCKED) 1,000 MG/250 ML BAG IVPB ONE ×2 (15:52→17:07)
[2018-06-11] MEDS ORDERED: ACETAMINOPHEN 325 MG TABLET (FP) PO PRN (16:41)
[2018-06-11] MEDS ORDERED: ONDANSETRON 4 MG/2 ML VIAL IVPUSH PRN (16:41)
--- NOTE | 2018-06-11 16:46 | PDOC ---
Attending Attestation - Resident Resident Name: Luz Elena Wilburny - ED Attending Attestation I have performed the following: I have examined & evaluated the patient, The case was reviewed & discussed with the resident, I agree w/resident's findings & plan, Exceptions are as noted - HPI HPI: 06/11/18 16:40 The patient is a 73 year old female, with a significant past medical history of HTN, BPD, HLD, DM, DVTs on Eliquis, pressure ulcers and anemia, who presents to the emergency department sent from [facility] with one week of weight loss and worsening pressure ulcers. As per [facility] reports, the patient has not been eating well in the past week and her pressure ulcers on her heels have become necrotic. Secondarily, the patient was seen last week on 06/04/18 at [facility] for her sacral wounds by Dr. Ayon. This patient was also seen on by Podiatry clinic for feet and leg pressure ulcers by Dr. Tian. The patient denies chest pain, shortness of breath, headache and dizziness. The patient denies fever, chills, nausea, vomit, diarrhea and constipation. The patient denies dysuria, frequency, urgency and hematuria. Allergies: NKDA Social Hx: Former smoker until admission at [facility] in February PCP - Dr. Wills - Physicial Exam PE: 06/11/18 16:42 agree with resident exam - Medical Decision Making 06/11/18 16:42 73yo F with MMP presents to ED for FTT and newly necrotic heel ulcers (reason for transfer to ED per [facility]). Vitals wnl. Exam with necrotic heel pressure ulcers and multiple sacral decub ulcers. Heel ulcers malodorous concerning for infection. Pt also has low grade rectal temp. Will cover empirically. Dr. Solis consulted. Pt admitted for further mgmt.
[2018-06-11] MEDS: SODIUM CHLORIDE 1,000 ML IV SCH (16:48)
--- NOTE | 2018-06-11 16:54 | HP ---
Admitting History and Physical - Primary Care Physician PCP: Chay Wills - Admission Chief Complaint: My feet hurt History of Present Illness: Ms Estrada is a pleasant 73 year old female who was sent in from [facility] with worsening heel ulceration and failure to thrive. She was recently admitted for sepsis and AMILCAR secondary to sacral ulceration last month. She is being followed by wound care in [facility], however her heel ulcers have progressed. Facility also states she has been eating and drinking less and sent her in. Per Ms Estrada she complains of pain in both of her feet but otherwise says she is feeling ok. Denies fevers, chills, lightheadedness, dizziness, chest pain or pressure, shortness of breath, nausea, vomiting, diarrhea, constipation, or leg swelling. She feels that she is eating and drinking without difficulty and in sufficient amounts. Daughter at bedside stating that she has been coughing for the past 2 weeks. History Source: Patient, Family Member, Medical Record Limitations to Obtaining History: Clinical Condition - Past Medical History Cardiovascular: Yes: HTN, Hyperlipdemia Heme/Onc: Yes: Other (DVT) Psych: Yes: Bipolar Endocrine: Yes: Diabetes Mellitus - Past Surgical History Additional Past Surgical History: Debridement - Smoking History Smoking history: Unknown if ever smoked Have you smoked in the past 12 months: No - Alcohol/Substance Use Hx Alcohol Use: No History of Substance Use: reports: None - Social History Usual Living Arrangement: Yes: Shelter ADL: Support Services History of Recent Travel: No Home Medications - Allergies Allergies/Adverse Reactions: Allergies Allergy/AdvReac Type Severity Reaction Status Date / Time No Known Allergies Allergy Verified 05/19/18 18:55 - Home Medications Home Medications: Ambulatory Orders Aa/Hydrolyzed Collagen, Whey [Lps 15-30 Liquid] 30 ml PO BID 05/19/18 Acetaminophen [Tylenol] 650 mg PO QID PRN 05/19/18 Apixaban [Eliquis -] 2.5 mg PO BID 05/19/18 Ascorbic Acid [Vitamin C -] 500 mg PO DAILY 05/19/18 Bacitracin - [Bacitracin Topical Ointment -] 1 applic TP BID 05/19/18 Bisacodyl [Bisacodyl -] 5 mg PO DAILY 05/19/18 Collagenase Clostridium Hist. [Santyl -] 1 applic TP BID 05/19/18 Ferrous Sulfate [Feosol] 1 tab PO DAILY 05/19/18 Insulin Glargine,Hum.rec.anlog [Lantus Solostar] 14 unit SQ DAILY 05/19/18 Insulin Lispro [Humalog Kwikpen U-100] 0 unit SQ ASDIR 05/19/18 LORazepam [Ativan] 0.5 mg PO BID 05/19/18 Mvit,Calcium,Iron,Mins/A.acids [[place] Double Strength Capsule] 1 each PO DAILY 05/19/18 Polyethylene Glycol 3350 [Miralax 119 gm Btl -] 17 gm PO DAILY 05/19/18 Propranolol HCl 40 mg PO BID 05/19/18 Risperidone [Risperdal -] 0.25 mg PO BID 05/19/18 Senna [place] Extract [Senna] 7.5 ml PO HS 05/19/18 Albuterol 2.5/Ipratropium 0.5 [Duoneb -] 1 amp NEB TID 06/11/18 Menthol/Zinc Oxide [Calmoseptine Ointment] 3.5 gm TP HS 06/11/18 Family Disease History - Family Disease History Family History: Unremarkable Review of Systems Findings/Remarks: Full review of systems obtained, as per HPI and otherwise negative. Physical Examination Vital Signs: Vital Signs Temperature 37.7 C H 06/11/18 16:46 Pulse Rate 81 06/11/18 16:46 Respiratory Rate 16 06/11/18 16:46 Blood Pressure 95/53 L 06/11/18 16:46 O2 Sat by Pulse Oximetry (%) 98 06/11/18 16:46 Constitutional: Yes: No Distress, Calm, Obese Eyes: Yes: Conjunctiva Clear Cardiovascular: Yes: Regular Rate and Rhythm. No: Gallop, Murmur, Rub Respiratory: Yes: Regular, CTA Bilaterally, Cough. No: Rales, Rhonchi, Wheezes Gastrointestinal: Yes: Normal Bowel Sounds, Soft. No: Distention, Tenderness Extremities: Yes: Other (bilateral heel ulcerations) Edema: No Integumentary: Yes: Pressure Ulcer (sacral) Labs: CBC, BMP 06/11/18 13:36 06/11/18 13:36 Imaging - Results Chest X-ray: Image Reviewed Problem List - Problems (1) Decubitus ulcer of heel, bilateral, stage 3 Assessment/Plan: -admit to hospital -worsening -consult vascular surgery and podiatry -received vancomycin and zosyn in the ED -will hold off on further antibiotics since no major overt signs of sepsis -ID consult Code(s): L89.613 - PRESSURE ULCER OF RIGHT HEEL, STAGE 3; L89.623 - PRESSURE ULCER OF LEFT HEEL, STAGE 3 (2) Transaminitis Assessment/Plan: -unclear cause -? secondary to dehydration -IVF -abdominal ultrasound -monitor Code(s): R74.0 - NONSPEC ELEV OF LEVELS OF TRANSAMNS & LACTIC ACID DEHYDRGNSE (3) History of DVT (deep vein thrombosis) Assessment/Plan: -continue eliquis Code(s): Z86.718 - PERSONAL HISTORY OF OTHER VENOUS THROMBOSIS AND EMBOLISM (4) Bipolar 1 disorder Assessment/Plan: -continue home regimen -well controlled Code(s): F31.9 - BIPOLAR DISORDER, UNSPECIFIED (5) Functional quadriplegia Assessment/Plan: -PT consult Code(s): R53.2 - FUNCTIONAL QUADRIPLEGIA (6) HTN (hypertension) Assessment/Plan: -continue propanolol Code(s): I10 - ESSENTIAL (PRIMARY) HYPERTENSION Qualifiers: Hypertension type: essential hypertension Qualified Code(s): I10 - Essential (primary) hypertension (7) Lactic acidosis Assessment/Plan: -hydrate with IVF Code(s): E87.2 - ACIDOSIS (8) Diabetes Assessment/Plan: -FSBS and SSI -diabetic diet -glucerna Code(s): E11.9 - TYPE 2 DIABETES MELLITUS WITHOUT COMPLICATIONS Qualifiers: Diabetes mellitus type: type 2 Diabetes mellitus terminal block assembler insulin use: with terminal block assembler use Diabetes mellitus complication status: with skin complications Diabetes mellitus complication detail: with foot ulcer Qualified Code(s): E11.621 - Type 2 diabetes mellitus with foot ulcer; L97.509 - Non-pressure chronic ulcer of other part of unspecified foot with unspecified severity; Z79.4 - intermediate project manager (current) use of insulin (9) Cough Assessment/Plan: -will request speech therapy for possible aspiration -monitor Code(s): R05 - COUGH
[2018-06-11] MEDS ORDERED: BACITRACIN 0.9 GM PACKET ONE (21:25)
[2018-06-11] MEDS ORDERED: LORazepam 0.5 MG TABLET ONE (21:25)
[2018-06-11] MEDS: APIXABAN 2.5 MG TABLET PO SCH (22:00)
[2018-06-11] MEDS ORDERED: PATIENT'S OWN MEDICATION (NON-FORMULARY) (Aa/Hydrolyzed Collagen, Whey [Lps 15-30 Liquid] PO SCH (22:00)
[2018-06-11] MEDS: LORazepam 0.5 MG TABLET PO SCH (23:00)
[2018-06-11] MEDS: INSULIN SLIDING SCALE (NOVOLOG) 1 VIAL SQ SCH (23:00)
[2018-06-12 07:07] LABS: BASO % 0.5 % (0-2.0); EOS % 1.3 % (0-4.5); HEMATOCRIT 31.1 % (32.4-45.2); HEMOGLOBIN 9.7 GM/dL (10.7-15.3); LYMPH % 11.3 % (8-40); MCHC 31.2 g/dl (32.0-36.0); MEAN CELL VOLUME 89.8 fl (80-96); MEAN PLT VOLUME 8.9 fl (7.5-11.1); MONO % 7.4 % (3.8-10.2); NEUT % 79.5 % (42.8-82.8); PLATELET COUNT 571 K/MM3 (134-434); RBC 3.47 M/mm3 (3.60-5.2); RDW 18.4 % (11.6-15.6); WHITE BLOOD COUNT 11.2 K/mm3 (4.0-10.0)
[2018-06-12 08:21] LABS: ALBUMIN 1.8 g/dl (3.4-5.0); ALK PHOS 206 U/L (45-117); ANION GAP 11 MMOL/L (8-16); BILIRUBIN,TOTAL 0.3 mg/dL (0.2-1); BLOOD UREA NITROGEN 16 mg/dL (7-18); CALCIUM 8.7 mg/dL (8.5-10.1); CHLORIDE 106 mmol/L (98-107); CO2 19 mmol/L (21-32); CREATININE 1.3 mg/dL (0.55-1.3); GLUCOSE,RANDOM 223 mg/dL (74-106); MAGNESIUM 2.1 mg/dL (1.8-2.4); POTASSIUM 4.9 mmol/L (3.5-5.1); SGOT/AST 33 U/L (15-37); SGPT/ALT 90 U/L (13-61); SODIUM 136 mmol/L (136-145); TOT PROT 6.2 g/dl (6.4-8.2)
[2018-06-12] MEDS ORDERED: ALBUTEROL SO4 2.5/IPRATROPIUM 0.5 INH SOL 3 ML VIAL.NEB. NEB ONE (08:35)
[2018-06-12] MEDS: ALBUTEROL SO4 2.5/IPRATROPIUM 0.5 INH SOL 3 ML VIAL.NEB. NEB SCH ×3 (08:38→21:02)
--- NOTE | 2018-06-12 08:54 | CONSULT ---
- Consultation REQUESTING PROVIDER: Romero Solis / Wound Care Service CONSULT REQUEST: We have been asked to surgically evaluate this patient for necrotic heel ulcers and sacral ulcer PCP:Bernardo Thomson MD HPI: Called to daryn 73 yo female with PMHx as noted below. Sent in from [facility] with failure to thrive and worsening of her multiple pressure ulcers ( sacral and bilateral heels). Patient is well know to Wound Care Service as we operated on her 05/21/18 where we performed excisional debridment skin, subcutaneous tissue, muscle due to stage 4 sacral ulcer. Per medical chart, patient was seen last on 06/04/18 at [facility] for her sacral wounds by Dr. Ayon. Also seen 05/30/18 by Podiatry clinic for feet and leg pressure ulcers by Dr. Tian. Here for further evaluation. Patient denies n/v/f/c, CP, SOB, SOW. Denies numbness/tingling or LE rest pain. PMHx: HTN, Bioplar Disorder, HLD, DM, DVTs on Eliquis, pressure ulcers and anemia PSHx: Sacral debridement 05/21/18 Home Meds 3 Aa/Hydrolyzed Collagen, Whey [Lps 30 ml PO BID 05/19/18 Acetaminophen [Tylenol] 650 mg PO QID PRN 05/19/18 Apixaban [Eliquis -] 2.5 mg PO BID 05/19/18 Ascorbic Acid [Vitamin C -] 500 mg PO DAILY 05/19/18 Bacitracin - [Bacitracin Topical 1 applic TP BID 05/19/18 Bisacodyl [Bisacodyl -] 5 mg PO DAILY 05/19/18 Collagenase Clostridium Hist. 1 applic TP BID 05/19/18 Ferrous Sulfate [Feosol] 1 tab PO DAILY 05/19/18 Insulin Glargine,Hum.rec.anlog 14 unit SQ DAILY 05/19/18 Insulin Lispro [Humalog Kwikpen 0 unit SQ ASDIR 05/19/18 LORazepam [Ativan] 0.5 mg PO BID 05/19/18 Mvit,Calcium,Iron,Mins/A.acids 1 each PO DAILY 05/19/18 [[place] Double Strength Capsule] Polyethylene Glycol 3350 [Miralax 17 gm PO DAILY 05/19/18 Propranolol HCl 40 mg PO BID 05/19/18 Risperidone [Risperdal -] 0.25 mg PO BID 05/19/18 Senna [place] Extract [Senna] 7.5 ml PO HS 05/19/18 Albuterol 2.5/Ipratropium 0.5 1 amp NEB TID 06/11/18 Menthol/Zinc Oxide [Calmoseptine 3.5 gm TP HS 06/11/18 Allergies: NKDA ROS: All systems reviewed and considered negative except for what's contained in HPI. PE: GENERAL: Awake, alert, in no acute distress. HEAD: NC. AT. EYES: sclera anicteric, conjunctiva clear. NECK: Normal ROM, supple without lymphadenopathy, JVD, or masses. UE: 2+ pulses, warm, well-perfused. No cyanosis. Cap refill <2 seconds. No peripheral edema. LE: 2+ pulses DP/PT, warm, no calf tenderness. b/l heel eschars non-boggy. purulent drainage more posteriorly but nothing expressed malodorous. negative soft tissue crepitus Sacrum: malodorous, + fibrinous slough, bone exposed (not spongy). sreekanth-wound macerated skin. undermining Wound measurements: Right lateral malleolus: ~ 0.9cm x 0.6cm x 0cm Right heel: ~ 9.4cm x 4.7cm x 0cm Left heel: ~ 1.6cm x 2.2cm x 0cm Left heel: ~ 6.8cm x 5.3cm x 0cm R ischium 0.7cm x 0.5cm x 0.2cm Sacrum: ~ 7 x 9 x 4 Vital Signs Temperature 99.5 F 06/12/18 06:00 Pulse Rate 68 06/12/18 06:00 Respiratory Rate 18 06/12/18 06:00 Blood Pressure 108/54 L 06/12/18 06:00 O2 Sat by Pulse Oximetry (%) 100 06/11/18 19:22 Lab Results WBC 11.2 K/mm3 (4.0-10.0) H 06/12/18 06:20 RBC 3.47 M/mm3 (3.60-5.2) L 06/12/18 06:20 Hgb 9.7 GM/dL (10.7-15.3) L 06/12/18 06:20 Hct 31.1 % (32.4-45.2) L 06/12/18 06:20 MCV 89.8 fl (80-96) 06/12/18 06:20 MCHC 31.2 g/dl (32.0-36.0) L 06/12/18 06:20 RDW 18.4 % (11.6-15.6) H 06/12/18 06:20 Plt Count 571 K/MM3 (134-434) H 06/12/18 06:20 Sodium 136 mmol/L (136-145) 06/12/18 06:20 Potassium 4.9 mmol/L (3.5-5.1) 06/12/18 06:20 Chloride 106 mmol/L (98-107) 06/12/18 06:20 Carbon Dioxide 19 mmol/L (21-32) L 06/12/18 06:20 Anion Gap 11 MMOL/L (8-16) 06/12/18 06:20 BUN 16 mg/dL (7-18) 06/12/18 06:20 Creatinine 1.3 mg/dL (0.55-1.3) 06/12/18 06:20 Random Glucose 223 mg/dL (74-106) H 06/12/18 06:20 Calcium 8.7 mg/dL (8.5-10.1) 06/12/18 06:20 Urine Test Results Urine Color Straw 06/11/18 14:45 Urine Appearance Clear 06/11/18 14:45 Urine pH 6.0 (5.0-8.0) 06/11/18 14:45 Ur Specific [place] 1.001 (1.010-1.035) L 06/11/18 14:45 Urine Protein Negative (NEGATIVE) 06/11/18 14:45 Urine Glucose (UA) 3+ (NEGATIVE) H 06/11/18 14:45 Urine Ketones Negative (NEGATIVE) 06/11/18 14:45 Urine Blood Negative (NEGATIVE) 06/11/18 14:45 Urine Nitrite Negative (NEGATIVE) 06/11/18 14:45 Urine Bilirubin Negative (<2.0 mg/dL) 06/11/18 14:45 Ur Leukocyte Esterase Negative (NEGATIVE) 06/11/18 14:45 Problem List - Problems (1) Stage 4 skin ulcer of sacral region Assessment/Plan: Made NPO OR today for sacral debridement, possible heels ~ 11AM today Medical optimization / clearance, Dr. Thomson made aware iv abx tylenol for fever > 100.3F pain management Above plan discussed with Dr. Solis and agrees. Code(s): L98.429 - NON-PRESSURE CHRONIC ULCER OF BACK WITH UNSPECIFIED SEVERITY (2) Bipolar 1 disorder Code(s): F31.9 - BIPOLAR DISORDER, UNSPECIFIED (3) Diabetes Assessment/Plan: Tight glycemic control Finger sticks Code(s): E11.9 - TYPE 2 DIABETES MELLITUS WITHOUT COMPLICATIONS Qualifiers: Diabetes mellitus type: type 2 Diabetes mellitus assisted insulin use: with assisted use Diabetes mellitus complication status: with skin complications Diabetes mellitus complication detail: with foot ulcer Qualified Code(s): E11.621 - Type 2 diabetes mellitus with foot ulcer; L97.509 - Non-pressure chronic ulcer of other part of unspecified foot with unspecified severity; Z79.4 - watermelon inspector (current) use of insulin Visit type - Case Type Case Type: ED Admission - Emergency Emergency Visit: Yes ED Registration Date: 06/11/18 Care time: The patient presented to the Emergency Department on the above date and was hospitalized for further evaluation of their emergent condition. - New patient This patient is new to me today: Yes Date on this admission: 06/12/18
--- NOTE | 2018-06-12 09:29 | EKG ---
Test Reason : Blood Pressure : / mmHG Vent. Rate : 071 BPM Atrial Rate : 071 BPM P-R Int : 150 ms QRS Dur : 076 ms QT Int : 408 ms P-R-T Axes : 077 030 064 degrees QTc Int : 443 ms NORMAL SINUS RHYTHM NORMAL ECG WHEN COMPARED WITH ECG OF 19-MAY-2018 22:32, ABERRANT CONDUCTION IS NO LONGER PRESENT Confirmed by LIA BEARD MD ([id number]) on 06/12/2018 9:28:36 AM Referred By: Confirmed By:LIA BEARD MD
--- NOTE | 2018-06-12 11:05 | PN ---
Progress Note, Physician Chief Complaint: Ms Estrada says she is still having heel pain when asked directly but does not offer any spontaneous complaints. No cp, sob, n/v. - Current Medication List Current Medications: Active Medications Acetaminophen (Tylenol -) 650 mg PO Q4H PRN PRN Reason: FEVER Albuterol/Ipratropium (Duoneb -) 1 amp NEB RTID [facility] Last Admin: 06/12/18 08:38 Dose: 1 amp Apixaban (Eliquis -) 2.5 mg PO BID [facility] Last Admin: 06/11/18 22:00 Dose: Not Given Ascorbic Acid (Vitamin C -) 500 mg PO DAILY [facility] Bacitracin (Bacitracin -) 1 applic TP BID [facility] Bisacodyl (Dulcolax -) 5 mg PO DAILY [facility] Ferrous Sulfate (Feosol -) 325 mg PO DAILY [facility] Sodium Chloride (Normal Saline -) 1,000 mls @ 42 mls/hr IV ASDIR [facility] Last Admin: 06/11/18 16:48 Dose: 42 mls/hr Ampicillin Sodium/Sulbactam (Sodium 3 gm/ Sodium Chloride) 100 mls @ 200 mls/ hr IVPB Q6H-IV [facility] Insulin Aspart (Novolog Vial Sliding Scale -) 1 vial SQ ACHS [facility]; Protocol Last Admin: 06/11/18 23:00 Dose: 4 unit Lorazepam (Ativan -) 0.5 mg PO BID [facility] Last Admin: 06/11/18 23:00 Dose: 0.5 mg Ondansetron HCl (Zofran Injection) 4 mg IVPUSH Q6H PRN PRN Reason: NAUSEA Polyethylene Glycol (Miralax (For Daily Use) -) 17 gm PO DAILY [facility] Propranolol HCl (Inderal -) 40 mg PO BID [facility] Last Admin: 06/11/18 23:00 Dose: 40 mg Risperidone (Risperdal -) 0.25 mg PO BID [facility] - Objective Vital Signs: Vital Signs Temperature 37.3 C 06/12/18 09:14 Pulse Rate 86 06/12/18 09:14 Respiratory Rate 18 06/12/18 09:14 Blood Pressure 104/45 L 06/12/18 09:14 O2 Sat by Pulse Oximetry (%) 100 06/12/18 09:00 Constitutional: Yes: Well Nourished, No Distress, Calm Cardiovascular: Yes: Regular Rate and Rhythm. No: Gallop, Murmur, Rub Respiratory: Yes: Regular, CTA Bilaterally. No: Rales, Rhonchi, Wheezes Gastrointestinal: Yes: Normal Bowel Sounds, Soft. No: Distention, Tenderness Extremities: Yes: Other (feet wrapped) Edema: No Integumentary: Yes: Pressure Ulcer Labs: CBC, BMP 06/12/18 06:20 06/12/18 06:20 Problem List - Problems (1) Stage 4 skin ulcer of sacral region Code(s): L98.429 - NON-PRESSURE CHRONIC ULCER OF BACK WITH UNSPECIFIED SEVERITY (2) Decubitus ulcer of heel, bilateral, stage 3 Code(s): L89.613 - PRESSURE ULCER OF RIGHT HEEL, STAGE 3; L89.623 - PRESSURE ULCER OF LEFT HEEL, STAGE 3 (3) Transaminitis Code(s): R74.0 - NONSPEC ELEV OF LEVELS OF TRANSAMNS & LACTIC ACID DEHYDRGNSE (4) History of DVT (deep vein thrombosis) Code(s): Z86.718 - PERSONAL HISTORY OF OTHER VENOUS THROMBOSIS AND EMBOLISM (5) Bipolar 1 disorder Code(s): F31.9 - BIPOLAR DISORDER, UNSPECIFIED (6) Functional quadriplegia Code(s): R53.2 - FUNCTIONAL QUADRIPLEGIA (7) HTN (hypertension) Code(s): I10 - ESSENTIAL (PRIMARY) HYPERTENSION Qualifiers: Hypertension type: essential hypertension Qualified Code(s): I10 - Essential (primary) hypertension (8) Lactic acidosis Code(s): E87.2 - ACIDOSIS (9) Diabetes Code(s): E11.9 - TYPE 2 DIABETES MELLITUS WITHOUT COMPLICATIONS Qualifiers: Diabetes mellitus type: type 2 Diabetes mellitus detention insulin use: with detention use Diabetes mellitus complication status: with skin complications Diabetes mellitus complication detail: with foot ulcer Qualified Code(s): E11.621 - Type 2 diabetes mellitus with foot ulcer; L97.509 - Non-pressure chronic ulcer of other part of unspecified foot with unspecified severity; Z79.4 - terminal gauger (current) use of insulin (10) Cough Code(s): R05 - COUGH Assessment/Plan (1) Multiple decubitus ulceration of heels and sacrum Assessment/Plan: -case d/w Dr Solis -planning for debridement of sacral ulcer today -awaiting podiatry evaluation for heel ulcers but may not be able to debride -following up cultures -wound cultures similar to previous cultures (growing enterococcus and gram negative, last culture was VRE and e coli) -will start unasyn as both susceptible -patient medically optimized for surgery -no history of CAD, no cp/sob/ulceration -clear chest x-ray, EKG NSR, and ECHO done on last admission also normal -no further work up indicated, revised cardiac risk index shows 0.9% risk of perioperative event Code(s): L89.613 - PRESSURE ULCER OF RIGHT HEEL, STAGE 3; L89.623 - PRESSURE ULCER OF LEFT HEEL, STAGE 3 (2) Transaminitis Assessment/Plan: -unclear cause -still present -follow up abdominal ultrasound Code(s): R74.0 - NONSPEC ELEV OF LEVELS OF TRANSAMNS & LACTIC ACID DEHYDRGNSE (3) History of DVT (deep vein thrombosis) Assessment/Plan: -continue eliquis Code(s): Z86.718 - PERSONAL HISTORY OF OTHER VENOUS THROMBOSIS AND EMBOLISM (4) Bipolar 1 disorder Assessment/Plan: -continue home regimen -well controlled Code(s): F31.9 - BIPOLAR DISORDER, UNSPECIFIED (5) Functional quadriplegia Assessment/Plan: -PT consulted Code(s): R53.2 - FUNCTIONAL QUADRIPLEGIA (6) HTN (hypertension) Assessment/Plan: -continue propanolol Code(s): I10 - ESSENTIAL (PRIMARY) HYPERTENSION Qualifiers: Hypertension type: essential hypertension Qualified Code(s): I10 - Essential (primary) hypertension (7) Lactic acidosis Assessment/Plan: -hydrate with IVF -resolved Code(s): E87.2 - ACIDOSIS (8) Diabetes Assessment/Plan: -FSBS and SSI -diabetic diet -glucerna Code(s): E11.9 - TYPE 2 DIABETES MELLITUS WITHOUT COMPLICATIONS Qualifiers: Diabetes mellitus type: type 2 Diabetes mellitus detention insulin use: with detention use Diabetes mellitus complication status: with skin complications Diabetes mellitus complication detail: with foot ulcer Qualified Code(s): E11.621 - Type 2 diabetes mellitus with foot ulcer; L97.509 - Non-pressure chronic ulcer of other part of unspecified foot with unspecified severity; Z79.4 - skilled nursing (current) use of insulin (9) Cough Assessment/Plan: -speech therapy consulted and will see Code(s): R05 - COUGH
--- NOTE | 2018-06-12 12:57 | PN ---
Progress Note, Physician - Current Medication List Current Medications: Active Medications Acetaminophen (Tylenol -) 650 mg PO Q4H PRN PRN Reason: FEVER Albuterol/Ipratropium (Duoneb -) 1 amp NEB RTID [facility] Last Admin: 06/12/18 08:38 Dose: 1 amp Apixaban (Eliquis -) 2.5 mg PO BID [facility] Last Admin: 06/11/18 22:00 Dose: Not Given Ascorbic Acid (Vitamin C -) 500 mg PO DAILY [facility] Bacitracin (Bacitracin -) 1 applic TP BID [facility] Bisacodyl (Dulcolax -) 5 mg PO DAILY [facility] Ferrous Sulfate (Feosol -) 325 mg PO DAILY [facility] Sodium Chloride (Normal Saline -) 1,000 mls @ 42 mls/hr IV ASDIR [facility] Last Admin: 06/11/18 16:48 Dose: 42 mls/hr Ampicillin Sodium/Sulbactam (Sodium 3 gm/ Sodium Chloride) 100 mls @ 200 mls/ hr IVPB Q6H-IV [facility] Influenza Virus Vaccine Quadrival (Flulaval Quad [id number]) 60 mcg IM .ONCE ONE Stop: 06/12/18 13:01 Insulin Aspart (Novolog Vial Sliding Scale -) 1 vial SQ [facility]; Protocol Last Admin: 06/11/18 23:00 Dose: 4 unit Lorazepam (Ativan -) 0.5 mg PO BID [facility] Last Admin: 06/11/18 23:00 Dose: 0.5 mg Ondansetron HCl (Zofran Injection) 4 mg IVPUSH Q6H PRN PRN Reason: NAUSEA Polyethylene Glycol (Miralax (For Daily Use) -) 17 gm PO DAILY [facility] Propranolol HCl (Inderal -) 40 mg PO BID [facility] Last Admin: 06/11/18 23:00 Dose: 40 mg Risperidone (Risperdal -) 0.25 mg PO BID [facility] - Objective Vital Signs: Vital Signs Temperature 98.8 F 06/12/18 11:00 Pulse Rate 88 06/12/18 11:00 Respiratory Rate 20 06/12/18 11:00 Blood Pressure 110/60 06/12/18 11:00 O2 Sat by Pulse Oximetry (%) 98 06/12/18 11:00 Labs: CBC, BMP 06/12/18 06:20 06/12/18 06:20
[2018-06-12] MEDS ORDERED: FLU VACCINE QUAD 60 MCG/0.5 ML (MDV 18-19) IM ONE (13:00)
--- NOTE | 2018-06-12 13:12 | CONSULT ---
Admitting History and Physical - Primary Care Physician PCP: Bernardo Thomson - Admission History of Present Illness: Pt NPO for OR for wound care. Pt's daughter reports pt coughs with and without po intake. CXR (-). Pt on chopped diet/thin liquid at [place]. This is my first consult with this pt. History Source: Family Member, Medical Record Limitations to Obtaining History: Clinical Condition (Confused. Disoriented. Slow to respond.) - Past Medical History Cardiovascular: Yes: HTN, Hyperlipdemia Heme/Onc: Yes: Other (DVT) Psych: Yes: Bipolar Endocrine: Yes: Diabetes Mellitus - Past Surgical History Additional Past Surgical History: Debridement - Smoking History Smoking history: Never smoked Have you smoked in the past 12 months: No - Alcohol/Substance Use Hx Alcohol Use: No History of Substance Use: reports: None - Social History ADL: Support Services History of Recent Travel: No History - Admission Reason For Visit: SEPSIS,PRESSURE INJURY OF SKIN - Diagnostics X-ray: Report Reviewed - General Mental Status: Awake and Alert, Forgetful, Vague (slow to respond. Impaired speech initiation.), Confused, Flat Affect Attention: Distractible, Mild Impairment, Moderate Impairment Ability to Follow Directions: Fair (slow to respond) Head/Neck Control: Fair - Hearing Hearing: Normal Speech Evaluation - Communication Primary Language: OCCITAN Oral Expression Ability: Yes: Moderate Impairment - Speech Production Intelligibility: Yes: WNL - Speech Characteristics Voice Loudness: Normal Voice Pitch: Yes: Normal Voice Phonatory-based Quality: Yes: Normal Speech Pattern: Normal Speech Clarity: < 75% Nasal Resonance: Normal Articulation: Yes: Precise - Language/Auditory Comprehension Observation: Yes/No Confusion: Yes, Comprehends Conversational Speech: Yes ( simple), Benefits from Slow Speech: Yes, Benefits from Repetiton: Yes - Swallow Evaluation/Bedside Assessment Current Nutritional Intake: NPO Dentition: Yes: Edentulous Facial Symmetry at Rest: Symmetrical Facial Symmetry on Retraction: Symmetrical Against Resistance Opening: Normal Against Resistance Closing: Normal Pucker Lips: Normal Smile: Normal Lingual Movement: Normal, Symmetric Lingual Speed of Movement: Normal Lingual Movement Strgth Against Opposition: Normal Lingual Movement Characteristics: Normal Velopharyngeal Movement: Normal Laryngeal Elevation: WFL Laryngeal Movement: Able to Palpate Labial Seal: WFL Recommendations - Speech Evaluation, Impression/Plan Impression: Confused. Disoriented. Slow to respond.NPO pending OR. Daughter reports cough with and without po intake. CXR(-) - Dysphagia Impressions/Plan Dysphagia Impressions: Ongoing Evaluation *Silent aspiration: cannot be R/O at bedside Recommendations: Other (NPO for now. When PO trials are appropriate, trial of Puree/nectar. Ensure compact/pudding. Sw evaluation Friday. Daughter in agreement.)
[2018-06-12] MEDS: AMPICILLIN NA/SULBACTAM NA 3 GM in SODIUM CHLORIDE 100 ML IVPB SCH ×3 (15:07→21:40)
[2018-06-12] MEDS: INSULIN SLIDING SCALE (NOVOLOG) 1 VIAL SQ SCH ×3 (16:35→23:08)
[2018-06-12] MEDS: risperiDONE 0.25 MG TABLET (FP) PO SCH ×2 (16:36→23:05)
[2018-06-12] MEDS: BACITRACIN 15 GM TUBE TOPICAL OINTMENT TP SCH ×2 (16:36→23:07)
[2018-06-12] MEDS: LORazepam 0.5 MG TABLET PO SCH ×2 (16:36→21:40)
[2018-06-12] MEDS: APIXABAN 2.5 MG TABLET PO SCH ×2 (16:37→21:40)
[2018-06-12] MEDS: FERROUS SO4 325 MG TABLET (FP) PO SCH (16:37)
[2018-06-12] MEDS: POLYETHYLENE GLYCOL 3350 119 GM BTL PO SCH (16:37)
[2018-06-12] MEDS: ASCORBIC ACID 500 MG TABLET (FP) PO SCH (16:37)
[2018-06-12] MEDS: BISACODYL 5 MG TABLET.DR (FP) PO SCH (16:37)
[2018-06-12] MEDS: SODIUM CHLORIDE 1,000 ML IV SCH (17:10)
[2018-06-12] MEDS: VANCOMYCIN 1 GRAM (PRE-DOCKED) 1,000 MG/250 ML BAG IVPB SCH (17:10)
[2018-06-12] MEDS ORDERED: INSULIN (NOVOLOG) ASPART 100 UNITS/ML 10ML VIAL ONE (17:19)
[2018-06-13] MEDS: AMPICILLIN NA/SULBACTAM NA 3 GM in SODIUM CHLORIDE 100 ML IVPB SCH ×4 (02:57→21:56)
[2018-06-13] MEDS: INSULIN SLIDING SCALE (NOVOLOG) 1 VIAL SQ SCH ×4 (06:33→22:04)
--- NOTE | 2018-06-13 07:20 | CONSULT ---
Consult - text type - Consultation Consultation Note: Podiatry Consultation: Pleasant 73 year old DM F presents with worsening ulcers B/L, seen regularly in wound healing center by Dr. Solis. Reports worsening pain/smell to the ulcers. Does have low grade temp to 99 F. VSS. Sent in from [facility]. PMHx: DM, HTN, HLP, biopolar dx Meds: noted ALL: NKMA HODAN: Pedal pulses palpable, TG wnl, CFT brisk to all toes bilaterally. On the right foot, there is an unstageable pressure ulcer to the heel mostly necrotic with small rim of granulation tissue, no purulence, no fluctuance, no soft tissue crepitus. Moderate tenderness to palpation. There is a lateral ankle pressure ulcer stage 3 with fibrogranular base, no probing to bone, no purulence, no fluctuance, no cellulitis. There is a posterior achilles tendon pressure ulcer mostly necrotic small area of fibrotic tissue. On the left foot, there is a plantar heel pressure ulcer unstageable mostly necrotic, no purulence, no fluctuance, no soft tissue crepitus, no streaking cellulitis. There is a posterior achilles tendon pressure ulcer fibronecrotic, no purulence, no fluctunace, no soft tissue crepitus. Wound Cx: group d strep, staph, GNBs Blood Cx: no growth Imp: 73 year old DM F with multiple pressure ulcers bilateral feet 1. IV abx per ID 2. Rx santyl to feet 3. Heel offloading measures 4. For OR debridement per note by Dr. Solis 5. Would benefit from imaging, xray and bone scan, to evaluate presence of osteomyelitis 6. Thank you for the courtesy of this consultation. Kyung Ramirez DPM
[2018-06-13] MEDS: ALBUTEROL SO4 2.5/IPRATROPIUM 0.5 INH SOL 3 ML VIAL.NEB. NEB SCH ×3 (07:49→19:40)
[2018-06-13 08:20] LABS: ANION GAP 10 MMOL/L (8-16); BLOOD UREA NITROGEN 16 mg/dL (7-18); CALCIUM 8.3 mg/dL (8.5-10.1); CHLORIDE 112 mmol/L (98-107); CO2 20 mmol/L (21-32); CREATININE 1.1 mg/dL (0.55-1.3); GLUCOSE,RANDOM 120 mg/dL (74-106); MAGNESIUM 1.8 mg/dL (1.8-2.4); PHOSPHOROUS 3.4 mg/dL (2.5-4.9); POTASSIUM 4.4 mmol/L (3.5-5.1); SODIUM 142 mmol/L (136-145)
[2018-06-13 08:21] LABS: BASO % 0.3 % (0-2.0); EOS % 2.2 % (0-4.5); HEMATOCRIT 26.7 % (32.4-45.2); HEMOGLOBIN 8.3 GM/dL (10.7-15.3); LYMPH % 14.1 % (8-40); MCH 27.8 pg (25.7-33.7); MCHC 31.1 g/dl (32.0-36.0); MEAN CELL VOLUME 89.4 fl (80-96); MEAN PLT VOLUME 8.6 fl (7.5-11.1); MONO % 7.7 % (3.8-10.2); NEUT % 75.7 % (42.8-82.8); PLATELET COUNT 553 K/MM3 (134-434); RBC 2.99 M/mm3 (3.60-5.2); RDW 18.8 % (11.6-15.6); WHITE BLOOD COUNT 12.7 K/mm3 (4.0-10.0)
[2018-06-13] MEDS ORDERED: PT OWN MED DRAWER 7, Y5N ONE ×3 (09:40→21:54)
[2018-06-13] MEDS: BACITRACIN 15 GM TUBE TOPICAL OINTMENT TP SCH (09:42)
[2018-06-13] MEDS: LORazepam 0.5 MG TABLET PO SCH ×2 (09:42→22:04)
[2018-06-13] MEDS: BISACODYL 5 MG TABLET.DR (FP) PO SCH (09:43)
[2018-06-13] MEDS: ASCORBIC ACID 500 MG TABLET (FP) PO SCH (09:43)
[2018-06-13] MEDS: FERROUS SO4 325 MG TABLET (FP) PO SCH (09:43)
[2018-06-13] MEDS: COLLAGENASE CLOSTRIDIUM HIST. 30 GRAMS TUBE TP SCH (09:43)
[2018-06-13] MEDS: APIXABAN 2.5 MG TABLET PO SCH ×2 (09:43→22:04)
[2018-06-13] MEDS: risperiDONE 0.25 MG TABLET (FP) PO SCH ×2 (09:44→21:57)
[2018-06-13] MEDS: POLYETHYLENE GLYCOL 3350 119 GM BTL PO SCH (09:45)
--- NOTE | 2018-06-13 11:30 | PN ---
Progress Note, Physician History of Present Illness: stable plan is for or tomorrow wound cx noted - Current Medication List Current Medications: Active Medications Acetaminophen (Tylenol -) 650 mg PO Q4H PRN PRN Reason: FEVER Albuterol/Ipratropium (Duoneb -) 1 amp NEB RTID [facility] Last Admin: 06/13/18 07:49 Dose: 1 amp Apixaban (Eliquis -) 2.5 mg PO BID [facility] Last Admin: 06/13/18 09:43 Dose: 2.5 mg Ascorbic Acid (Vitamin C -) 500 mg PO DAILY [facility] Last Admin: 06/13/18 09:43 Dose: 500 mg Bacitracin (Bacitracin -) 1 applic TP BID [facility] Last Admin: 06/13/18 09:42 Dose: 1 applic Bisacodyl (Dulcolax -) 5 mg PO DAILY [facility] Last Admin: 06/13/18 09:43 Dose: 5 mg Collagenase (Santyl -) 1 applic TP DAILY [facility]; Protocol Last Admin: 06/13/18 09:43 Dose: 1 applic Ferrous Sulfate (Feosol -) 325 mg PO DAILY [facility] Last Admin: 06/13/18 09:43 Dose: 325 mg Sodium Chloride (Normal Saline -) 1,000 mls @ 42 mls/hr IV ASDIR [facility] Last Admin: 06/12/18 17:10 Dose: 42 mls/hr Ampicillin Sodium/Sulbactam (Sodium 3 gm/ Sodium Chloride) 100 mls @ 200 mls/ hr IVPB Q6H-IV [facility] Last Admin: 06/13/18 09:43 Dose: 200 mls/hr Vancomycin HCl (Vancomycin (Pre-Docked)) 1,000 mg in 250 mls @ 166.667 mls/hr IVPB Q24H [facility]; Protocol Last Admin: 06/12/18 17:10 Dose: 166.667 mls/hr Insulin Aspart (Novolog Vial Sliding Scale -) 1 vial SQ ACHS [facility]; Protocol Last Admin: 06/13/18 06:33 Dose: Not Given Lorazepam (Ativan -) 0.5 mg PO BID [facility] Last Admin: 06/13/18 09:42 Dose: 0.5 mg Ondansetron HCl (Zofran Injection) 4 mg IVPUSH Q6H PRN PRN Reason: NAUSEA Polyethylene Glycol (Miralax (For Daily Use) -) 17 gm PO DAILY [facility] Last Admin: 06/13/18 09:45 Dose: 17 grams Propranolol HCl (Inderal -) 40 mg PO BID [facility] Last Admin: 06/13/18 09:45 Dose: 40 mg Risperidone (Risperdal -) 0.25 mg PO BID [facility] Last Admin: 06/13/18 09:44 Dose: 0.25 mg - Objective Vital Signs: Vital Signs Temperature 98.2 F 06/13/18 10:00 Pulse Rate 105 H 06/13/18 10:00 Respiratory Rate 20 06/13/18 10:00 Blood Pressure 129/71 06/13/18 10:00 O2 Sat by Pulse Oximetry (%) 98 06/12/18 21:00 Constitutional: Yes: No Distress, Calm Cardiovascular: Yes: Regular Rate and Rhythm Respiratory: Yes: Regular, CTA Bilaterally Gastrointestinal: Yes: Normal Bowel Sounds, Soft Musculoskeletal: Yes: Other Extremities: Yes: Other (wounds) Wound/Incision: Yes: Other (sacral decubitus heel ulcers infected woud) Neurological: Yes: Alert Psychiatric: Yes: Alert Labs: CBC, BMP 06/13/18 07:30 06/13/18 07:30 Assessment/Plan Problem List - Problems (1) Decubitus ulcer of heel, bilateral, stage 3 Code(s): L89.613 - PRESSURE ULCER OF RIGHT HEEL, STAGE 3; L89.623 - PRESSURE ULCER OF LEFT HEEL, STAGE 3 (2) Transaminitis Code(s): R74.0 - NONSPEC ELEV OF LEVELS OF TRANSAMNS & LACTIC ACID DEHYDRGNSE (3) History of DVT (deep vein thrombosis) Code(s): Z86.718 - PERSONAL HISTORY OF OTHER VENOUS THROMBOSIS AND EMBOLISM (4) Bipolar 1 disorder Code(s): F31.9 - BIPOLAR DISORDER, UNSPECIFIED (5) Functional quadriplegia Code(s): R53.2 - FUNCTIONAL QUADRIPLEGIA (6) HTN (hypertension) Code(s): I10 - ESSENTIAL (PRIMARY) HYPERTENSION Qualifiers: Hypertension type: essential hypertension Qualified Code(s): I10 - Essential (primary) hypertension (7) Lactic acidosis Code(s): E87.2 - ACIDOSIS (8) Diabetes Code(s): E11.9 - TYPE 2 DIABETES MELLITUS WITHOUT COMPLICATIONS Qualifiers: Diabetes mellitus type: type 2 Diabetes mellitus oil heaterman insulin use: with prison use Diabetes mellitus complication status: with skin complications Diabetes mellitus complication detail: with foot ulcer Qualified Code(s): E11.621 - Type 2 diabetes mellitus with foot ulcer; L97.509 - Non-pressure chronic ulcer of other part of unspecified foot with unspecified severity; Z79.4 - [facility] (current) use of insulin (9) Cough Code(s): R05 - COUGH patient with multiple organisms now also growing mrsa plan continue current abx will add vanco patient for or on moday rest as per the team
--- NOTE | 2018-06-13 12:43 | PN ---
Progress Note, Physician Chief Complaint: No new complaints, hemodynamically stable and afebrile History of Present Illness: 73 year old female who was sent in from [facility] with worsening heel ulceration and failure to thrive. She was recently admitted for sepsis and AMILCAR secondary to sacral ulceration last month. She is being followed by wound care in [facility], however her heel ulcers have progressed. - Current Medication List Current Medications: Active Medications Acetaminophen (Tylenol -) 650 mg PO Q4H PRN PRN Reason: FEVER Last Admin: 06/13/18 11:50 Dose: 650 mg Albuterol/Ipratropium (Duoneb -) 1 amp NEB RTID [facility] Last Admin: 06/13/18 07:49 Dose: 1 amp Apixaban (Eliquis -) 2.5 mg PO BID [facility] Last Admin: 06/13/18 09:43 Dose: 2.5 mg Ascorbic Acid (Vitamin C -) 500 mg PO DAILY [facility] Last Admin: 06/13/18 09:43 Dose: 500 mg Bacitracin (Bacitracin -) 1 applic TP BID [facility] Last Admin: 06/13/18 09:42 Dose: 1 applic Bisacodyl (Dulcolax -) 5 mg PO DAILY [facility] Last Admin: 06/13/18 09:43 Dose: 5 mg Collagenase (Santyl -) 1 applic TP DAILY [facility]; Protocol Last Admin: 06/13/18 09:43 Dose: 1 applic Ferrous Sulfate (Feosol -) 325 mg PO DAILY [facility] Last Admin: 06/13/18 09:43 Dose: 325 mg Sodium Chloride (Normal Saline -) 1,000 mls @ 42 mls/hr IV ASDIR [facility] Last Admin: 06/12/18 17:10 Dose: 42 mls/hr Ampicillin Sodium/Sulbactam (Sodium 3 gm/ Sodium Chloride) 100 mls @ 200 mls/ hr IVPB Q6H-IV [facility] Last Admin: 06/13/18 09:43 Dose: 200 mls/hr Vancomycin HCl (Vancomycin (Pre-Docked)) 1,000 mg in 250 mls @ 166.667 mls/hr IVPB Q24H [facility]; Protocol Last Admin: 06/12/18 17:10 Dose: 166.667 mls/hr Insulin Aspart (Novolog Vial Sliding Scale -) 1 vial SQ ACHS [facility]; Protocol Last Admin: 06/13/18 12:14 Dose: 6 unit Lorazepam (Ativan -) 0.5 mg PO BID [facility] Last Admin: 06/13/18 09:42 Dose: 0.5 mg Ondansetron HCl (Zofran Injection) 4 mg IVPUSH Q6H PRN PRN Reason: NAUSEA Polyethylene Glycol (Miralax (For Daily Use) -) 17 gm PO DAILY [facility] Last Admin: 06/13/18 09:45 Dose: 17 grams Propranolol HCl (Inderal -) 40 mg PO BID [facility] Last Admin: 06/13/18 09:45 Dose: 40 mg Risperidone (Risperdal -) 0.25 mg PO BID [facility] Last Admin: 06/13/18 09:44 Dose: 0.25 mg - Objective Vital Signs: Vital Signs Temperature 98.2 F 06/13/18 10:00 Pulse Rate 105 H 06/13/18 10:00 Respiratory Rate 20 06/13/18 10:00 Blood Pressure 129/71 06/13/18 10:00 O2 Sat by Pulse Oximetry (%) 98 06/12/18 21:00 Constitutional: Yes: Well Nourished, No Distress, Calm Cardiovascular: Yes: Regular Rate and Rhythm. No: Gallop, Murmur, Rub Respiratory: Yes: Regular, CTA Bilaterally. No: Rales, Rhonchi, Wheezes Gastrointestinal: Yes: Normal Bowel Sounds, Soft. No: Distention, Tenderness Extremities: Yes: Other (feet wrapped) Edema: No Integumentary: Yes: Pressure Ulcer Labs: CBC, BMP 06/13/18 07:30 06/13/18 07:30 Problem List - Problems (1) Decubitus ulcer of heel, bilateral, stage 3 Assessment/Plan: Infected evaluated by ID and Wound care cont current abx and wound care Code(s): L89.613 - PRESSURE ULCER OF RIGHT HEEL, STAGE 3; L89.623 - PRESSURE ULCER OF LEFT HEEL, STAGE 3 (2) Multiple open wounds Assessment/Plan: nfected evaluated by ID and Wound care cont current abx and wound care Code(s): T07.XXXA - UNSPECIFIED MULTIPLE INJURIES, INITIAL ENCOUNTER (3) Stage 4 skin ulcer of sacral region Assessment/Plan: nfected evaluated by ID and Wound care cont current abx and wound care Code(s): L98.429 - NON-PRESSURE CHRONIC ULCER OF BACK WITH UNSPECIFIED SEVERITY (4) Anemia Assessment/Plan: Chronic H/H are stable Code(s): D64.9 - ANEMIA, UNSPECIFIED Qualifiers: Chronic kidney disease stage: stage 3 (moderate) (5) CKD (chronic kidney disease) Assessment/Plan: Renal function are stable Code(s): N18.9 - CHRONIC KIDNEY DISEASE, UNSPECIFIED Qualifiers: Chronic kidney disease stage: stage 2 (mild) Qualified Code(s): N18.2 - Chronic kidney disease, stage 2 (mild) (6) Diabetes Assessment/Plan: T2 with nephropathy optimize Glycemic control Code(s): E11.9 - TYPE 2 DIABETES MELLITUS WITHOUT COMPLICATIONS Qualifiers: Diabetes mellitus type: type 2 Diabetes mellitus snf insulin use: with snf use Diabetes mellitus complication status: with skin complications Diabetes mellitus complication detail: with foot ulcer Qualified Code(s): E11.621 - Type 2 diabetes mellitus with foot ulcer; L97.509 - Non-pressure chronic ulcer of other part of unspecified foot with unspecified severity; 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.4 - 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 of insulin (7) Functional quadriplegia Assessment/Plan: at base line no active issue Code(s): R53.2 - FUNCTIONAL QUADRIPLEGIA (8) HLD (hyperlipidemia) Assessment/Plan: cont Statin Code(s): E78.5 - HYPERLIPIDEMIA, UNSPECIFIED (9) HTN (hypertension) Assessment/Plan: well controlled cont all home meds Code(s): I10 - ESSENTIAL (PRIMARY) HYPERTENSION Qualifiers: Hypertension type: essential hypertension Qualified Code(s): I10 - Essential (primary) hypertension (10) History of DVT (deep vein thrombosis) Assessment/Plan: Chronic on Ac Code(s): Z86.718 - PERSONAL HISTORY OF OTHER VENOUS THROMBOSIS AND EMBOLISM (11) Sepsis Assessment/Plan: Improving on IV abx Code(s): A41.9 - SEPSIS, UNSPECIFIED ORGANISM
[2018-06-13] MEDS ORDERED: INSULIN (NOVOLOG) ASPART 100 UNITS/ML 10ML VIAL ONE (15:36)
[2018-06-13] MEDS: VANCOMYCIN 1 GRAM (PRE-DOCKED) 1,000 MG/250 ML BAG IVPB SCH (15:57)
[2018-06-13] MEDS: SODIUM CHLORIDE 1,000 ML IV SCH (18:04)
[2018-06-13 18:28] VITALS: BMI 22.8
[2018-06-14] MEDS: SODIUM CHLORIDE 1,000 ML IV SCH (02:37)
[2018-06-14] MEDS: AMPICILLIN NA/SULBACTAM NA 3 GM in SODIUM CHLORIDE 100 ML IVPB SCH ×4 (02:38→21:49)
[2018-06-14] MEDS ORDERED: INSULIN (NOVOLOG) ASPART 100 UNITS/ML 10ML VIAL ONE ×4 (06:22→21:48)
[2018-06-14] MEDS: INSULIN SLIDING SCALE (NOVOLOG) 1 VIAL SQ SCH ×4 (06:53→21:49)
[2018-06-14 07:12] LABS: BASO % 0.3 % (0-2.0); EOS % 2.2 % (0-4.5); HEMATOCRIT 25.4 % (32.4-45.2); HEMOGLOBIN 7.7 GM/dL (10.7-15.3); LYMPH % 12.4 % (8-40); MCH 27.3 pg (25.7-33.7); MCHC 30.4 g/dl (32.0-36.0); MEAN CELL VOLUME 89.7 fl (80-96); MEAN PLT VOLUME 8.1 fl (7.5-11.1); NEUT % 78.1 % (42.8-82.8); PLATELET COUNT 405 K/MM3 (134-434); RBC 2.84 M/mm3 (3.60-5.2); RDW 18.2 % (11.6-15.6); WHITE BLOOD COUNT 11.3 K/mm3 (4.0-10.0)
[2018-06-14 07:56] LABS: ANION GAP 8 MMOL/L (8-16); BLOOD UREA NITROGEN 16 mg/dL (7-18); CALCIUM 8.3 mg/dL (8.5-10.1); CHLORIDE 117 mmol/L (98-107); CO2 23 mmol/L (21-32); CREATININE 1.1 mg/dL (0.55-1.3); GLUCOSE,RANDOM 149 mg/dL (74-106); POTASSIUM 3.9 mmol/L (3.5-5.1); SODIUM 148 mmol/L (136-145)
[2018-06-14] MEDS: ALBUTEROL SO4 2.5/IPRATROPIUM 0.5 INH SOL 3 ML VIAL.NEB. NEB SCH ×3 (08:00→19:50)
[2018-06-14] MEDS ORDERED: PT OWN MED DRAWER 7, Y5N ONE ×3 (08:52→21:51)
[2018-06-14] MEDS: BISACODYL 5 MG TABLET.DR (FP) PO SCH (09:40)
[2018-06-14] MEDS: FERROUS SO4 325 MG TABLET (FP) PO SCH (09:40)
[2018-06-14] MEDS: COLLAGENASE CLOSTRIDIUM HIST. 30 GRAMS TUBE TP SCH (09:40)
[2018-06-14] MEDS: ASCORBIC ACID 500 MG TABLET (FP) PO SCH (09:40)
[2018-06-14] MEDS: LORazepam 0.5 MG TABLET PO SCH ×2 (09:40→21:43)
[2018-06-14] MEDS: risperiDONE 0.25 MG TABLET (FP) PO SCH ×2 (09:41→21:47)
[2018-06-14] MEDS: BACITRACIN 15 GM TUBE TOPICAL OINTMENT TP SCH ×2 (09:41→21:51)
[2018-06-14] MEDS: POLYETHYLENE GLYCOL 3350 119 GM BTL PO SCH (09:42)
[2018-06-14] MEDS: APIXABAN 2.5 MG TABLET PO SCH ×2 (11:31→21:42)
--- NOTE | 2018-06-14 11:50 | PN ---
Progress Note, Physician Chief Complaint: No new complaints, hemodynamically stable and afebrile History of Present Illness: 73 year old female who was sent in from [facility] with worsening heel ulceration and failure to thrive. She was recently admitted for sepsis and AMILCAR secondary to sacral ulceration last month. She is being followed by wound care in [facility], however her heel ulcers have progressed. - Current Medication List Current Medications: Active Medications Acetaminophen (Tylenol -) 650 mg PO Q4H PRN PRN Reason: FEVER Last Admin: 06/13/18 11:50 Dose: 650 mg Albuterol/Ipratropium (Duoneb -) 1 amp NEB RTID [facility] Last Admin: 06/14/18 08:00 Dose: 1 amp Apixaban (Eliquis -) 2.5 mg PO BID [facility] Last Admin: 06/14/18 11:31 Dose: Not Given Ascorbic Acid (Vitamin C -) 500 mg PO DAILY [facility] Last Admin: 06/14/18 09:40 Dose: 500 mg Bacitracin (Bacitracin -) 1 applic TP BID [facility] Last Admin: 06/14/18 09:41 Dose: 1 applic Bisacodyl (Dulcolax -) 5 mg PO DAILY [facility] Last Admin: 06/14/18 09:40 Dose: 5 mg Collagenase (Santyl -) 1 applic TP DAILY [facility]; Protocol Last Admin: 06/14/18 09:40 Dose: 1 applic Ferrous Sulfate (Feosol -) 325 mg PO DAILY [facility] Last Admin: 06/14/18 09:40 Dose: 325 mg Sodium Chloride (Normal Saline -) 1,000 mls @ 42 mls/hr IV ASDIR [facility] Last Admin: 06/14/18 02:37 Dose: 42 mls/hr Ampicillin Sodium/Sulbactam (Sodium 3 gm/ Sodium Chloride) 100 mls @ 200 mls/ hr IVPB Q6H-IV [facility] Last Admin: 06/14/18 09:40 Dose: 200 mls/hr Vancomycin HCl (Vancomycin (Pre-Docked)) 1,000 mg in 250 mls @ 166.667 mls/hr IVPB Q24H [facility]; Protocol Last Admin: 06/13/18 15:57 Dose: 166.667 mls/hr Insulin Aspart (Novolog Vial Sliding Scale -) 1 vial SQ ACHS [facility]; Protocol Last Admin: 06/14/18 11:24 Dose: 8 unit Lorazepam (Ativan -) 0.5 mg PO BID [facility] Last Admin: 06/14/18 09:40 Dose: 0.5 mg Ondansetron HCl (Zofran Injection) 4 mg IVPUSH Q6H PRN PRN Reason: NAUSEA Polyethylene Glycol (Miralax (For Daily Use) -) 17 gm PO DAILY [facility] Last Admin: 06/14/18 09:42 Dose: 17 grams Propranolol HCl (Inderal -) 40 mg PO BID [facility] Last Admin: 06/14/18 09:41 Dose: 40 mg Risperidone (Risperdal -) 0.25 mg PO BID [facility] Last Admin: 06/14/18 09:41 Dose: 0.25 mg - Objective Vital Signs: Vital Signs Temperature 98.4 F 06/14/18 10:00 Pulse Rate 107 H 06/14/18 10:00 Respiratory Rate 18 06/14/18 10:00 Blood Pressure 133/66 06/14/18 10:00 O2 Sat by Pulse Oximetry (%) 96 06/13/18 21:00 Labs: CBC, BMP 06/14/18 06:00 06/14/18 06:00 Problem List - Problems (1) Decubitus ulcer of heel, bilateral, stage 3 Assessment/Plan: Infected evaluated by ID and Wound care cont current abx and wound care Code(s): L89.613 - PRESSURE ULCER OF RIGHT HEEL, STAGE 3; L89.623 - PRESSURE ULCER OF LEFT HEEL, STAGE 3 (2) Multiple open wounds Assessment/Plan: nfected evaluated by ID and Wound care cont current abx and wound care Code(s): T07.XXXA - UNSPECIFIED MULTIPLE INJURIES, INITIAL ENCOUNTER (3) Stage 4 skin ulcer of sacral region Assessment/Plan: nfected evaluated by ID and Wound care cont current abx and wound care Code(s): L98.429 - NON-PRESSURE CHRONIC ULCER OF BACK WITH UNSPECIFIED SEVERITY (4) Anemia Assessment/Plan: Chronic H/H are stable Code(s): D64.9 - ANEMIA, UNSPECIFIED Qualifiers: Chronic kidney disease stage: stage 3 (moderate) (5) CKD (chronic kidney disease) Assessment/Plan: Renal function are stable Code(s): N18.9 - CHRONIC KIDNEY DISEASE, UNSPECIFIED Qualifiers: Chronic kidney disease stage: stage 2 (mild) Qualified Code(s): N18.2 - Chronic kidney disease, stage 2 (mild) (6) Diabetes Assessment/Plan: T2 with nephropathy optimize Glycemic control Code(s): E11.9 - TYPE 2 DIABETES MELLITUS WITHOUT COMPLICATIONS Qualifiers: Diabetes mellitus type: type 2 Diabetes mellitus assisted insulin use: with assisted use Diabetes mellitus complication status: with skin complications Diabetes mellitus complication detail: with foot ulcer Qualified Code(s): E11.621 - Type 2 diabetes mellitus with foot ulcer; L97.509 - Non-pressure chronic ulcer of other part of unspecified foot with unspecified severity; 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 (7) Functional quadriplegia Assessment/Plan: at base line no active issue Code(s): R53.2 - FUNCTIONAL QUADRIPLEGIA (8) HLD (hyperlipidemia) Assessment/Plan: cont Statin Code(s): E78.5 - HYPERLIPIDEMIA, UNSPECIFIED (9) HTN (hypertension) Assessment/Plan: well controlled cont all home meds Code(s): I10 - ESSENTIAL (PRIMARY) HYPERTENSION Qualifiers: Hypertension type: essential hypertension Qualified Code(s): I10 - Essential (primary) hypertension (10) History of DVT (deep vein thrombosis) Assessment/Plan: Chronic on Ac Code(s): Z86.718 - PERSONAL HISTORY OF OTHER VENOUS THROMBOSIS AND EMBOLISM (11) Sepsis Assessment/Plan: Improving on IV abx Code(s): A41.9 - SEPSIS, UNSPECIFIED ORGANISM
--- NOTE | 2018-06-14 13:11 | PN ---
Progress Note, Physician History of Present Illness: stable congestion patient eating - Current Medication List Current Medications: Active Medications Acetaminophen (Tylenol -) 650 mg PO Q4H PRN PRN Reason: FEVER Last Admin: 06/13/18 11:50 Dose: 650 mg Albuterol/Ipratropium (Duoneb -) 1 amp NEB RTID [facility] Last Admin: 06/14/18 08:00 Dose: 1 amp Apixaban (Eliquis -) 2.5 mg PO BID [facility] Last Admin: 06/14/18 11:31 Dose: Not Given Ascorbic Acid (Vitamin C -) 500 mg PO DAILY [facility] Last Admin: 06/14/18 09:40 Dose: 500 mg Bacitracin (Bacitracin -) 1 applic TP BID [facility] Last Admin: 06/14/18 09:41 Dose: 1 applic Bisacodyl (Dulcolax -) 5 mg PO DAILY [facility] Last Admin: 06/14/18 09:40 Dose: 5 mg Collagenase (Santyl -) 1 applic TP DAILY [facility]; Protocol Last Admin: 06/14/18 09:40 Dose: 1 applic Ferrous Sulfate (Feosol -) 325 mg PO DAILY [facility] Last Admin: 06/14/18 09:40 Dose: 325 mg Sodium Chloride (Normal Saline -) 1,000 mls @ 42 mls/hr IV ASDIR [facility] Last Admin: 06/14/18 02:37 Dose: 42 mls/hr Ampicillin Sodium/Sulbactam (Sodium 3 gm/ Sodium Chloride) 100 mls @ 200 mls/ hr IVPB Q6H-IV [facility] Last Admin: 06/14/18 09:40 Dose: 200 mls/hr Vancomycin HCl (Vancomycin (Pre-Docked)) 1,000 mg in 250 mls @ 166.667 mls/hr IVPB Q24H [facility]; Protocol Last Admin: 06/13/18 15:57 Dose: 166.667 mls/hr Insulin Aspart (Novolog Vial Sliding Scale -) 1 vial SQ ACHS [facility]; Protocol Last Admin: 06/14/18 11:24 Dose: 8 unit Lorazepam (Ativan -) 0.5 mg PO BID [facility] Last Admin: 06/14/18 09:40 Dose: 0.5 mg Ondansetron HCl (Zofran Injection) 4 mg IVPUSH Q6H PRN PRN Reason: NAUSEA Polyethylene Glycol (Miralax (For Daily Use) -) 17 gm PO DAILY [facility] Last Admin: 06/14/18 09:42 Dose: 17 grams Propranolol HCl (Inderal -) 40 mg PO BID [facility] Last Admin: 06/14/18 09:41 Dose: 40 mg Risperidone (Risperdal -) 0.25 mg PO BID [facility] Last Admin: 06/14/18 09:41 Dose: 0.25 mg - Objective Vital Signs: Vital Signs Temperature 98.4 F 06/14/18 10:00 Pulse Rate 107 H 06/14/18 10:00 Respiratory Rate 06/14/18 10:00 Blood Pressure 133/66 06/14/18 10:00 O2 Sat by Pulse Oximetry (%) 96 06/13/18 21:00 Constitutional: Yes: No Distress, Calm Cardiovascular: Yes: Regular Rate and Rhythm Respiratory: Yes: Regular, Rhonchi, Other Gastrointestinal: Yes: Normal Bowel Sounds, Soft Musculoskeletal: Yes: WNL Extremities: Yes: Other Wound/Incision: Yes: Other (sacral decubitus) Neurological: Yes: Alert, Oriented Psychiatric: Yes: Alert, Oriented Labs: CBC, BMP 06/14/18 06:00 06/14/18 06:00 Assessment/Plan Problem List - Problems (1) Decubitus ulcer of heel, bilateral, stage 3 Code(s): L89.613 - PRESSURE ULCER OF RIGHT HEEL, STAGE 3; L89.623 - PRESSURE ULCER OF LEFT HEEL, STAGE 3 (2) Transaminitis Code(s): R74.0 - NONSPEC ELEV OF LEVELS OF TRANSAMNS & LACTIC ACID DEHYDRGNSE (3) History of DVT (deep vein thrombosis) Code(s): Z86.718 - PERSONAL HISTORY OF OTHER VENOUS THROMBOSIS AND EMBOLISM (4) Bipolar 1 disorder Code(s): F31.9 - BIPOLAR DISORDER, UNSPECIFIED (5) Functional quadriplegia Code(s): R53.2 - FUNCTIONAL QUADRIPLEGIA (6) HTN (hypertension) Code(s): I10 - ESSENTIAL (PRIMARY) HYPERTENSION Qualifiers: Hypertension type: essential hypertension Qualified Code(s): I10 - Essential (primary) hypertension (7) Lactic acidosis Code(s): E87.2 - ACIDOSIS (8) Diabetes Code(s): E11.9 - TYPE 2 DIABETES MELLITUS WITHOUT COMPLICATIONS Qualifiers: Diabetes mellitus type: type 2 Diabetes mellitus manager intermediate insulin use: with manager intermediate use Diabetes mellitus complication status: with skin complications Diabetes mellitus complication detail: with foot ulcer Qualified Code(s): E11.621 - Type 2 diabetes mellitus with foot ulcer; L97.509 - Non-pressure chronic ulcer of other part of unspecified foot with unspecified severity; Z79.4 - [facility] (current) use of insulin (9) Cough Code(s): R05 - COUGH patient with multiple organisms now also growing mrsa plan continue current abx will add vanco patient for or on moday rest as per the team will stop iv fluids
[2018-06-14] MEDS: VANCOMYCIN 1 GRAM (PRE-DOCKED) 1,000 MG/250 ML BAG IVPB SCH (15:52)
[2018-06-15] MEDS: AMPICILLIN NA/SULBACTAM NA 3 GM in SODIUM CHLORIDE 100 ML IVPB SCH ×4 (02:38→20:44)
[2018-06-15] MEDS: INSULIN SLIDING SCALE (NOVOLOG) 1 VIAL SQ SCH ×4 (06:08→21:51)
[2018-06-15 07:49] LABS: BASO % 0.6 % (0-2.0); EOS % 3.1 % (0-4.5); HEMATOCRIT 24.6 % (32.4-45.2); HEMOGLOBIN 7.7 GM/dL (10.7-15.3); LYMPH % 18.6 % (8-40); MCHC 31.3 g/dl (32.0-36.0); MEAN CELL VOLUME 89.6 fl (80-96); MEAN PLT VOLUME 8.1 fl (7.5-11.1); MONO % 7.7 % (3.8-10.2); PLATELET COUNT 436 K/MM3 (134-434); RBC 2.75 M/mm3 (3.60-5.2); RDW 18.1 % (11.6-15.6); WHITE BLOOD COUNT 8.2 K/mm3 (4.0-10.0)
[2018-06-15 08:00] LABS: ANION GAP 6 MMOL/L (8-16); BLOOD UREA NITROGEN 16 mg/dL (7-18); CALCIUM 8.2 mg/dL (8.5-10.1); CHLORIDE 120 mmol/L (98-107); CO2 23 mmol/L (21-32); GLUCOSE,RANDOM 149 mg/dL (74-106); POTASSIUM 4.1 mmol/L (3.5-5.1); SODIUM 149 mmol/L (136-145)
[2018-06-15] MEDS: ALBUTEROL SO4 2.5/IPRATROPIUM 0.5 INH SOL 3 ML VIAL.NEB. NEB SCH ×2 (08:50→20:37)
[2018-06-15] MEDS ORDERED: PT OWN MED DRAWER 7, Y5N ONE ×3 (10:31→20:38)
[2018-06-15] MEDS: LORazepam 0.5 MG TABLET PO SCH ×2 (10:35→21:47)
[2018-06-15] MEDS: APIXABAN 2.5 MG TABLET PO SCH ×2 (10:35→21:47)
[2018-06-15] MEDS: risperiDONE 0.25 MG TABLET (FP) PO SCH ×2 (10:35→21:47)
[2018-06-15] MEDS: POLYETHYLENE GLYCOL 3350 119 GM BTL PO SCH (10:36)
[2018-06-15] MEDS: ASCORBIC ACID 500 MG TABLET (FP) PO SCH (10:36)
[2018-06-15] MEDS: FERROUS SO4 325 MG TABLET (FP) PO SCH (10:36)
[2018-06-15] MEDS: BISACODYL 5 MG TABLET.DR (FP) PO SCH (11:09)
--- NOTE | 2018-06-15 11:24 | PN ---
Progress Note, Physician History of Present Illness: clinically patient is stable plan for or for debridement daughter in room discussed with her congestion improving - Current Medication List Current Medications: Active Medications Acetaminophen (Tylenol -) 650 mg PO Q4H PRN PRN Reason: FEVER Last Admin: 06/13/18 11:50 Dose: 650 mg Albuterol/Ipratropium (Duoneb -) 1 amp NEB RTID YOAV Last Admin: 06/15/18 08:50 Dose: 1 amp Apixaban (Eliquis -) 2.5 mg PO BID YOAV Last Admin: 06/15/18 10:35 Dose: Not Given Ascorbic Acid (Vitamin C -) 500 mg PO DAILY YOAV Last Admin: 06/15/18 10:36 Dose: Not Given Bacitracin (Bacitracin -) 1 applic TP BID [facility] Last Admin: 06/14/18 21:51 Dose: 1 applic Bisacodyl (Dulcolax -) 5 mg PO DAILY [facility] Last Admin: 06/15/18 11:09 Dose: Not Given Collagenase (Santyl -) 1 applic TP DAILY YO[facility]; Protocol Last Admin: 06/14/18 09:40 Dose: 1 applic Ferrous Sulfate (Feosol -) 325 mg PO DAILY [facility] [place] Last Admin: 06/15/18 10:36 Dose: Not Given Ampicillin Sodium/Sulbactam (Sodium 3 gm/ Sodium Chloride) 100 mls @ 200 mls/ hr IVPB Q6H-IV YOAV Last Admin: 06/15/18 10:34 Dose: 200 mls/hr Vancomycin HCl (Vancomycin (Pre-Docked)) 1,000 mg in 250 mls @ 166.667 mls/hr IVPB Q24H YOAV; Protocol Last Admin: 06/14/18 15:52 Dose: 166.667 mls/hr Insulin Aspart (Novolog Vial Sliding Scale -) 1 vial SQ ACHS [facility]; Protocol Last Admin: 06/15/18 11:12 Dose: Not Given Lorazepam (Ativan -) 0.5 mg PO BID [facility] Last Admin: 06/15/18 10:35 Dose: Not Given Ondansetron HCl (Zofran Injection) 4 mg IVPUSH Q6H PRN PRN Reason: NAUSEA Polyethylene Glycol (Miralax (For Daily Use) -) 17 gm PO DAILY [facility] [place] Last Admin: 06/15/18 10:36 Dose: Not Given Propranolol HCl (Inderal -) 40 mg PO BID [facility] [place] Last Admin: 06/15/18 10:36 Dose: Not Given Risperidone (Risperdal -) 0.25 mg PO BID [facility] [place] Last Admin: 06/15/18 10:35 Dose: Not Given - Objective Vital Signs: Vital Signs Temperature 98.5 F 06/15/18 06:00 Pulse Rate 87 06/15/18 06:00 Respiratory Rate 20 06/14/18 18:30 Blood Pressure 128/59 L 06/15/18 06:00 O2 Sat by Pulse Oximetry (%) 96 06/14/18 20:16 Constitutional: Yes: No Distress, Calm Cardiovascular: Yes: Regular Rate and Rhythm Respiratory: Yes: Regular, CTA Bilaterally Gastrointestinal: Yes: Normal Bowel Sounds, Soft Musculoskeletal: Yes: Other Extremities: Yes: Other (b/l heel ulcers) Integumentary: Yes: Erythema Wound/Incision: Yes: Dressing Dry and Intact Neurological: Yes: Alert, Oriented Psychiatric: Yes: Alert, Oriented Labs: CBC, BMP 06/15/18 06:30 06/15/18 06:30 Assessment/Plan Problem List - Problems (1) Decubitus ulcer of heel, bilateral, stage 3 Code(s): L89.613 - PRESSURE ULCER OF RIGHT HEEL, STAGE 3; L89.623 - PRESSURE ULCER OF LEFT HEEL, STAGE 3 (2) Transaminitis Code(s): R74.0 - NONSPEC ELEV OF LEVELS OF TRANSAMNS & LACTIC ACID DEHYDRGNSE (3) History of DVT (deep vein thrombosis) Code(s): Z86.718 - PERSONAL HISTORY OF OTHER VENOUS THROMBOSIS AND EMBOLISM (4) Bipolar 1 disorder Code(s): F31.9 - BIPOLAR DISORDER, UNSPECIFIED (5) Functional quadriplegia Code(s): R53.2 - FUNCTIONAL QUADRIPLEGIA (6) HTN (hypertension) Code(s): I10 - ESSENTIAL (PRIMARY) HYPERTENSION Qualifiers: Hypertension type: essential hypertension Qualified Code(s): I10 - Essential (primary) hypertension (7) Lactic acidosis Code(s): E87.2 - ACIDOSIS (8) Diabetes Code(s): E11.9 - TYPE 2 DIABETES MELLITUS WITHOUT COMPLICATIONS Qualifiers: Diabetes mellitus type: type 2 Diabetes mellitus care home insulin use: with local intermodal truck 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
--- NOTE | 2018-06-15 12:09 | PN ---
Progress Note, Physician Chief Complaint: Ms Estrada says she is not feeling well but cannot tell me why. Denies fevers, chills, chest pain, shortness of breath, abdominal pain, nausea, vomiting, or any other concerns. - Current Medication List Current Medications: Active Medications Acetaminophen (Tylenol -) 650 mg PO Q4H PRN PRN Reason: FEVER Last Admin: 06/13/18 11:50 Dose: 650 mg Albuterol/Ipratropium (Duoneb -) 1 amp NEB RTID YOAV Last Admin: 06/15/18 08:50 Dose: 1 amp Apixaban (Eliquis -) 2.5 mg PO BID [facility] Last Admin: 06/15/18 10:35 Dose: Not Given Ascorbic Acid (Vitamin C -) 500 mg PO DAILY [facility] Last Admin: 06/15/18 10:36 Dose: Not Given Bacitracin (Bacitracin -) 1 applic TP BID [facility] Last Admin: 06/14/18 21:51 Dose: 1 applic Bisacodyl (Dulcolax -) 5 mg PO DAILY [facility] Last Admin: 06/15/18 11:09 Dose: Not Given Collagenase (Santyl -) 1 applic TP DAILY [facility]; Protocol Last Admin: 06/14/18 09:40 Dose: 1 applic Ferrous Sulfate (Feosol -) 325 mg PO DAILY [facility] Last Admin: 06/15/18 10:36 Dose: Not Given Ampicillin Sodium/Sulbactam (Sodium 3 gm/ Sodium Chloride) 100 mls @ 200 mls/ hr IVPB Q6H-IV YO[facility] Last Admin: 06/15/18 10:34 Dose: 200 mls/hr Vancomycin HCl (Vancomycin (Pre-Docked)) 1,000 mg in 250 mls @ 166.667 mls/hr IVPB Q24H [facility]; Protocol Last Admin: 06/14/18 15:52 Dose: 166.667 mls/hr Insulin Aspart (Novolog Vial Sliding Scale -) 1 vial SQ ACHS [facility]; Protocol Last Admin: 06/15/18 11:12 Dose: Not Given Lorazepam (Ativan -) 0.5 mg PO BID [facility] Last Admin: 06/15/18 10:35 Dose: Not Given Ondansetron HCl (Zofran Injection) 4 mg IVPUSH Q6H PRN PRN Reason: NAUSEA Polyethylene Glycol (Miralax (For Daily Use) -) 17 gm PO DAILY [facility] Last Admin: 06/15/18 10:36 Dose: Not Given Propranolol HCl (Inderal -) 40 mg PO BID [facility] Last Admin: 06/15/18 10:36 Dose: Not Given Risperidone (Risperdal -) 0.25 mg PO BID [facility] Last Admin: 06/15/18 10:35 Dose: Not Given - Objective Vital Signs: Vital Signs Temperature 36.9 C 06/15/18 06:00 Pulse Rate 87 06/15/18 06:00 Respiratory Rate 20 06/14/18 18:30 Blood Pressure 128/59 L 06/15/18 06:00 O2 Sat by Pulse Oximetry (%) 96 06/14/18 20:16 Constitutional: Yes: Well Nourished, No Distress, Calm Cardiovascular: Yes: Regular Rate and Rhythm. No: Gallop, Murmur, Rub Respiratory: Yes: Regular, CTA Bilaterally. No: Rales, Rhonchi, Wheezes Gastrointestinal: Yes: Normal Bowel Sounds, Soft. No: Distention, Tenderness Extremities: Yes: Other (both feet wrapped) Edema: No Labs: CBC, BMP 06/15/18 06:30 06/15/18 06:30 Problem List - Problems (1) Stage 4 skin ulcer of sacral region Code(s): L98.429 - NON-PRESSURE CHRONIC ULCER OF BACK WITH UNSPECIFIED SEVERITY (2) Decubitus ulcer of heel, bilateral, stage 3 Code(s): L89.613 - PRESSURE ULCER OF RIGHT HEEL, STAGE 3; L89.623 - PRESSURE ULCER OF LEFT HEEL, STAGE 3 (3) Transaminitis Code(s): R74.0 - NONSPEC ELEV OF LEVELS OF TRANSAMNS & LACTIC ACID DEHYDRGNSE (4) History of DVT (deep vein thrombosis) Code(s): Z86.718 - PERSONAL HISTORY OF OTHER VENOUS THROMBOSIS AND EMBOLISM (5) Bipolar 1 disorder Code(s): F31.9 - BIPOLAR DISORDER, UNSPECIFIED (6) Functional quadriplegia Code(s): R53.2 - FUNCTIONAL QUADRIPLEGIA (7) HTN (hypertension) Code(s): I10 - ESSENTIAL (PRIMARY) HYPERTENSION Qualifiers: Hypertension type: essential hypertension Qualified Code(s): I10 - Essential (primary) hypertension (8) Lactic acidosis Code(s): E87.2 - ACIDOSIS (9) Diabetes Code(s): E11.9 - TYPE 2 DIABETES MELLITUS WITHOUT COMPLICATIONS Qualifiers: Diabetes mellitus type: type 2 Diabetes mellitus detention insulin use: with detention use Diabetes mellitus complication status: with skin complications Diabetes mellitus complication detail: with foot ulcer Qualified Code(s): E11.621 - Type 2 diabetes mellitus with foot ulcer; L97.509 - Non-pressure chronic ulcer of other part of unspecified foot with unspecified severity; 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 (10) Cough Code(s): R05 - COUGH Assessment/Plan (1) Multiple decubitus ulceration of heels and sacrum Assessment/Plan: -appreciate vascular surgery and podiatry assistance -reviewed podiatry note -will check ESR/CRP -will obtain foot x-rays -if foot x-rays negative, consider MRI vs bone scan for possible osteomyelitis Code(s): L89.613 - PRESSURE ULCER OF RIGHT HEEL, STAGE 3; L89.623 - PRESSURE ULCER OF LEFT HEEL, STAGE 3 (2) Transaminitis Assessment/Plan: -abdominal ultrasound reviewed -recheck LFTs today and normalizing -suspect patient passed a stone -will consult GI and general surgery to evaluate as well Code(s): R74.0 - NONSPEC ELEV OF LEVELS OF TRANSAMNS & LACTIC ACID DEHYDRGNSE (3) History of DVT (deep vein thrombosis) Assessment/Plan: -continue eliquis Code(s): Z86.718 - PERSONAL HISTORY OF OTHER VENOUS THROMBOSIS AND EMBOLISM (4) Bipolar 1 disorder Assessment/Plan: -continue home regimen -well controlled Code(s): F31.9 - BIPOLAR DISORDER, UNSPECIFIED (5) Functional quadriplegia Assessment/Plan: -PT consulted Code(s): R53.2 - FUNCTIONAL QUADRIPLEGIA (6) HTN (hypertension) Assessment/Plan: -continue propanolol Code(s): I10 - ESSENTIAL (PRIMARY) HYPERTENSION Qualifiers: Hypertension type: essential hypertension Qualified Code(s): I10 - Essential (primary) hypertension (7) Lactic acidosis Assessment/Plan: -resolved Code(s): E87.2 - ACIDOSIS (8) Diabetes Assessment/Plan: -FSBS and SSI -diabetic diet -glucerna Code(s): E11.9 - TYPE 2 DIABETES MELLITUS WITHOUT COMPLICATIONS Qualifiers: Diabetes mellitus type: type 2 Diabetes mellitus detention insulin use: with detention use Diabetes mellitus complication status: with skin complications Diabetes mellitus complication detail: with foot ulcer Qualified Code(s): E11.621 - Type 2 diabetes mellitus with foot ulcer; L97.509 - Non-pressure chronic ulcer of other part of unspecified foot with unspecified severity; 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
--- NOTE | 2018-06-15 12:54 | PN ---
Progress Note, BUYERS' AGENT - Note Progress Note: Selected Entries 06/13/18 06/13/18 06/13/18 12:20 15:19 18:00 Breakfast 50% 50% 50% Lunch 50% 50% Supper 75% Temperature 06/13/18 06/13/18 06/14/18 22:44 23:00 02:00 Breakfast 50% 50% Lunch 50% 50% Supper 75% 75% Temperature 98.9 F 06/14/18 06/14/18 06/14/18 06:00 10:00 15:30 Breakfast 50% Lunch 50% Supper Temperature 99.2 F 98.4 F 98.5 F 06/14/18 06/15/18 06/15/18 18:30 06:00 10:00 Breakfast 50% Lunch 50% Supper 75% Temperature 98.4 F 98.5 F 97.4 F L Laboratory Tests 06/11/18 06/12/18 06/14/18 13:36 06:20 06:00 WBC 9.7 11.2 H 11.3 H 06/15/18 06:30 WBC 8.2 Pt tolerated diet over weekend. Reg/thin? Suggest Puree/nectar until assessed. Pt NPO again for OR. To follow.
[2018-06-15 13:12] LABS: ALBUMIN 1.5 g/dl (3.4-5.0); BILIRUBIN,DIRECT 0.1 mg/dL (0.0-0.2); BILIRUBIN,TOTAL 0.2 mg/dL (0.2-1); TOT PROT 5.3 g/dl (6.4-8.2)
--- NOTE | 2018-06-15 13:20 | CONSULT ---
Consult Consult Specialty:: General surgery Referred by:: Janice Thomson MD Reason for Consultation:: Cholelithiasis - History of Present Illness Chief Complaint: Cholelithiasis History of Present Illness: 73 yo female PMH HTN, HLD, DM type 2, bipolar disorder who presented from [facility] with worsening heel ulceration and failure to thrive. She was recently admitted for sepsis and AMILCAR secondary to sacral ulceration last month. She is being followed by wound care in [facility], however her heel ulcers have progressed. Facility also states she has been eating and drinking less and sent her in. Per Ms Natalie she complains of pain in both of her feet but otherwise says she is feeling ok. we were asked to assess - History Source History Provided By: Patient, Medical Record Limitations to Obtaining History: No Limitations - Past Medical History Cardio/Vascular: Yes: HTN, Hyperlipdemia Psych: Yes: Bipolar Endocrine: Yes: Diabetes Mellitus - Alcohol/Substance Use Hx Alcohol Use: No History of Substance Use: reports: None - Smoking History Smoking history: Never smoked Have you smoked in the past 12 months: No - Social History ADL: Support Services Place of : [facility] History of Recent Travel: No Home Medications - Allergies Allergies/Adverse Reactions: Allergies Allergy/AdvReac Type Severity Reaction Status Date / Time No Known Allergies Allergy Verified 05/19/18 18:55 - Home Medications Home Medications: Ambulatory Orders Aa/Hydrolyzed Collagen, Whey [Lps 15-30 Liquid] 30 ml PO BID 05/19/18 Acetaminophen [Tylenol] 650 mg PO QID PRN 05/19/18 Apixaban [Eliquis -] 2.5 mg PO BID 05/19/18 Ascorbic Acid [Vitamin C -] 500 mg PO DAILY 05/19/18 Bacitracin - [Bacitracin Topical Ointment -] 1 applic TP BID 05/19/18 Bisacodyl [Bisacodyl -] 5 mg PO DAILY 05/19/18 Collagenase Clostridium Hist. [Santyl -] 1 applic TP BID 05/19/18 Ferrous Sulfate [Feosol] 1 tab PO DAILY 05/19/18 Insulin Glargine,Hum.rec.anlog [Lantus Solostar] 14 unit SQ DAILY 05/19/18 Insulin Lispro [Humalog Kwikpen U-100] 0 unit SQ ASDIR 05/19/18 LORazepam [Ativan] 0.5 mg PO BID 05/19/18 Mvit,Calcium,Iron,Mins/A.acids [K-Grayling Double Strength Capsule] 1 each PO DAILY 05/19/18 Polyethylene Glycol 3350 [Miralax 119 gm Btl -] 17 gm PO DAILY 05/19/18 Propranolol HCl 40 mg PO BID 05/19/18 Risperidone [Risperdal -] 0.25 mg PO BID 05/19/18 Senna Phenix Extract [Senna] 7.5 ml PO HS 05/19/18 Albuterol 2.5/Ipratropium 0.5 [Duoneb -] 1 amp NEB TID 06/11/18 Menthol/Zinc Oxide [Calmoseptine Ointment] 3.5 gm TP HS 06/11/18 Review of Systems - Review of Systems Constitutional: denies: Chills, Fever Eyes: denies: Blind Spots, Recent Change in Vision HENT: denies: Difficult Swallowing, Throat Pain Neck: denies: Pain on Movement, Tenderness Cardiovascular: denies: Chest Pain, Palpitations Respiratory: denies: Cough, SOB Gastrointestinal: denies: Abdominal Pain, Constipation, Diarrhea, Nausea, Vomiting Genitourinary: denies: Discharge, Dysuria Breasts: reports: No Symptoms Reported. denies: Pain Musculoskeletal: denies: Extremity Pain, Joint Pain, Muscle Pain, Muscle Weakness Integumentary: denies: Erythema, Lesions, Pruritis Neurological: denies: Seizure, Syncope Endocrine: denies: Unexplained Weight Gain, Unexplained Weight Loss Hematology/Lymphatic: denies: Easily Bruised, Excessive Bleeding Psychiatric: denies: Anxiety, Depression Physical Exam Vital Signs: Vital Signs Temperature 97.4 F L 06/15/18 10:00 Pulse Rate 90 06/15/18 10:00 Respiratory Rate 20 06/15/18 10:00 Blood Pressure 122/90 06/15/18 10:00 O2 Sat by Pulse Oximetry (%) 96 06/14/18 20:16 Constitutional: Yes: Well Nourished, No Distress, Calm Eyes: Yes: Conjunctiva Clear, EOM Intact HENT: Yes: Atraumatic, Normocephalic Neck: Yes: Supple, Trachea Midline Cardiovascular: Yes: Regular Rate and Rhythm, S1, S2 Respiratory: Yes: Regular, CTA Bilaterally Gastrointestinal: Yes: Normal Bowel Sounds, Soft. No: Hernia, Pulsatile Mass ...Rectal Exam: Yes: Deferred Renal/: No: CVA Tenderness - Left, CVA Tenderness - Right Extremities: No: Cool, Cyanosis Edema: Yes Peripheral Pulses WNL: No Wound/Incision: Yes: Clean/Dry Neurological: Yes: Alert, Oriented Psychiatric: Yes: Alert, Oriented Labs: CBC, BMP 06/15/18 06:30 06/15/18 06:30 Problem List - Problems (1) Gallstones Assessment/Plan: may have passed a gallstone. She is currently asymptomatic and has resolving LFT values. She may be a surgical candidate but when discussed she was not interested. She can follow-up for elective surgery if desired. Call Dr. Wells' office at [phone] to make an appointment if desired ( Friday as advised). Clinic is held in the [facility] on the first floor of [facility]. Call the office if you have: * increasing right upper abdominal pain not responsive to pain medication * fever of 101F or higher * vomiting Thank you for the opportunity to participate in the care of this patient. 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
[2018-06-15] MEDS: VANCOMYCIN 1 GRAM (PRE-DOCKED) 1,000 MG/250 ML BAG IVPB SCH (16:59)
[2018-06-15] MEDS: COLLAGENASE CLOSTRIDIUM HIST. 30 GRAMS TUBE TP SCH (16:59)
--- NOTE | 2018-06-15 20:22 | CON.GI ---
Consult Consult Specialty:: Gastroenterology Referred by:: Dr. Thomson Reason for Consultation:: abnormal LFTs, gallstones - History of Present Illness Chief Complaint: Failure to thrive History of Present Illness: 73F transferred from the [facility] for failure to thrive and management of heel ulcers. Jose Eduardo answers simple questions. She denies abdominal pain, difficulty swallowing, nausea, constipation, I am asked to exclude a retained stone. Her sonogram reveals gallstones and a diltaed CBD. She was seen by my associate Dr Merrill as far back as 09/07/13 for a dilated CBD and abdominal pain. He advised MRCP and a screening colonoscopy and MRCP. She declined the colonoscopy and MRCP. She was seen again in 08/09 when she again refused colonoscopy and also failed to have the Cologard that was arranged. She is now agian found to have a dilated CBD and GC stones. Her trans - History Source History Provided By: Patient, Medical Record Limitations to Obtaining History: Poor Historian - Past Medical History Cardio/Vascular: Yes: HTN, Hyperlipdemia Hepatobiliary: Yes: Cholelithiasis, Other (chronically dilated CBD) Heme/Onc: Yes: Anemia Psych: Yes: Bipolar Endocrine: Yes: Diabetes Mellitus - Past Surgical History Additional Surgical History: Uterine polyps removed - Alcohol/Substance Use Hx Alcohol Use: Yes (rare) History of Substance Use: reports: None - Smoking History Smoking history: Former smoker Have you smoked in the past 12 months: No If you are a former smoker, when did you quit?: when entered [facility] - Social History Usual Living Arrangement: Longterm ADL: Support Services Occupation: retired Place of : [facility] History of Recent Travel: No Home Medications - Allergies Allergies/Adverse Reactions: Allergies Allergy/AdvReac Type Severity Reaction Status Date / Time No Known Allergies Allergy Verified 05/19/18 18:55 - Home Medications Home Medications: Ambulatory Orders Aa/Hydrolyzed Collagen, Whey [Lps 15-30 Liquid] 30 ml PO BID 05/19/18 Acetaminophen [Tylenol] 650 mg PO QID PRN 05/19/18 Apixaban [Eliquis -] 2.5 mg PO BID 05/19/18 Ascorbic Acid [Vitamin C -] 500 mg PO DAILY 05/19/18 Bacitracin - [Bacitracin Topical Ointment -] 1 applic TP BID 05/19/18 Bisacodyl [Bisacodyl -] 5 mg PO DAILY 05/19/18 Collagenase Clostridium Hist. [Santyl -] 1 applic TP BID 05/19/18 Ferrous Sulfate [Feosol] 1 tab PO DAILY 05/19/18 Insulin Glargine,Hum.rec.anlog [Lantus Solostar] 14 unit SQ DAILY 05/19/18 Insulin Lispro [Humalog Kwikpen U-100] 0 unit SQ ASDIR 05/19/18 LORazepam [Ativan] 0.5 mg PO BID 05/19/18 Mvit,Calcium,Iron,Mins/A.acids [[place] Double Strength Capsule] 1 each PO DAILY 05/19/18 Polyethylene Glycol 3350 [Miralax 119 gm Btl -] 17 gm PO DAILY 05/19/18 Propranolol HCl 40 mg PO BID 05/19/18 Risperidone [Risperdal -] 0.25 mg PO BID 05/19/18 Senna [place] Extract [Senna] 7.5 ml PO HS 05/19/18 Albuterol 2.5/Ipratropium 0.5 [Duoneb -] 1 amp NEB TID 06/11/18 Menthol/Zinc Oxide [Calmoseptine Ointment] 3.5 gm TP HS 06/11/18 Family Disease History - Family Disease History Family Disease History: Heart Disease: Father (had IA), Brother ( 63 stomach cancer), CA: Sister (breast cancer) Review of Systems Unable to obtain ROS, reason: confused Physical Exam-GI Vital Signs: Vital Signs Temperature 97.4 F L 06/15/18 10:00 Pulse Rate 90 06/15/18 10:00 Respiratory Rate 20 06/15/18 10:00 Blood Pressure 122/90 06/15/18 10:00 O2 Sat by Pulse Oximetry (%) 96 06/14/18 20:16 CBC,CMP WBC 8.2 K/mm3 (4.0-10.0) 06/15/18 06:30 RBC 2.75 M/mm3 (3.60-5.2) L 06/15/18 06:30 Hgb 7.7 GM/dL (10.7-15.3) L 06/15/18 06:30 Hct 24.6 % (32.4-45.2) L 06/15/18 06:30 MCV 89.6 fl (80-96) 06/15/18 06:30 MCH 28.0 pg (25.7-33.7) 06/15/18 06:30 MCHC 31.3 g/dl (32.0-36.0) L 06/15/18 06:30 RDW 18.1 % (11.6-15.6) H 06/15/18 06:30 Plt Count 436 K/MM3 (134-434) H 06/15/18 06:30 MPV 8.1 fl (7.5-11.1) 06/15/18 06:30 Absolute Neuts (auto) 5.8 K/mm3 (1.5-8.0) 06/15/18 06:30 Neutrophils % 70.0 % (42.8-82.8) 06/15/18 06:30 Lymphocytes % 18.6 % (8-40) D 06/15/18 06:30 Monocytes % 7.7 % (3.8-10.2) 06/15/18 06:30 Eosinophils % 3.1 % (0-4.5) 06/15/18 06:30 Basophils % 0.6 % (0-2.0) 06/15/18 06:30 Nucleated RBC % 0 % (0-0) 06/15/18 06:30 ESR 113 mm/hr (0-30) H 06/15/18 12:10 Sodium 149 mmol/L (136-145) H 06/15/18 06:30 Potassium 4.1 mmol/L (3.5-5.1) 06/15/18 06:30 Chloride 120 mmol/L (98-107) H 06/15/18 06:30 Carbon Dioxide 23 mmol/L (21-32) 06/15/18 06:30 Anion Gap 6 MMOL/L (8-16) L 06/15/18 06:30 BUN 16 mg/dL (7-18) 06/15/18 06:30 Creatinine 1.0 mg/dL (0.55-1.3) 06/15/18 06:30 Creat Clearance w eGFR 54.50 (>60) 06/15/18 06:30 POC Glucometer 221 UNITS (80-120) 06/15/18 16:57 Random Glucose 149 mg/dL (74-106) H 10/22/18 06:30 Lactic Acid 1.2 mmol/L (0.4-2.0) 06/12/18 08:30 Calcium 8.2 mg/dL (8.5-10.1) L 06/15/18 06:30 Phosphorus 3.4 mg/dL (2.5-4.9) 06/13/18 07:30 Magnesium 1.8 mg/dL (1.8-2.4) 06/13/18 07:30 Total Bilirubin 0.2 mg/dL (0.2-1) 06/15/18 12:10 Direct Bilirubin 0.1 mg/dL (0.0-0.2) 06/15/18 12:10 AST 65 U/L (15-37) H 06/15/18 12:10 ALT 81 U/L (13-61) H 06/15/18 12:10 Alkaline Phosphatase 148 U/L (45-117) H 06/15/18 12:10 C-Reactive Protein 10.5 MG/DL (0.00-0.3) H 06/15/18 12:10 Total Protein 5.3 g/dl (6.4-8.2) L 06/15/18 12:10 Albumin 1.5 g/dl (3.4-5.0) L 06/15/18 12:10 Current Medications Generic Name Dose Route Start Last Admin Trade Name Freq PRN Reason Stop Dose Admin Acetaminophen 650 mg 06/11/18 16:41 06/13/18 11:50 Tylenol - PO 650 mg Q4H PRN Administration FEVER Albuterol/Ipratropium 1 amp 06/11/18 20:00 06/15/18 08:50 Duoneb - NEB 1 amp RTID YOAV Administration Apixaban 2.5 mg 06/11/18 22:00 06/15/18 10:35 Eliquis - PO Not Given BID [facility] Ascorbic Acid 500 mg 06/12/18 10:00 06/15/18 10:36 Vitamin C - PO Not Given DAILY [facility] Bacitracin 1 applic 06/11/18 22:00 06/14/18 21:51 Bacitracin - TP 1 applic BID YOAV Administration Bisacodyl 5 mg 06/12/18 10:00 06/15/18 11:09 Dulcolax - PO Not Given DAILY [facility] Collagenase 1 applic 10/20/18 10:00 06/15/18 16:59 Santyl - TP Not Given DAILY [facility] Protocol Ferrous Sulfate 325 mg 06/12/18 10:00 06/15/18 10:36 Feosol - PO Not Given DAILY [facility] Ampicillin Sodium/Sulbactam 100 mls @ 200 mls/hr 06/12/18 11:00 06/15/18 16: 00 Sodium 3 gm/ Sodium Chloride IVPB 200 mls/hr Q6H-IV YOAV Administration Vancomycin HCl 1,000 mg in 250 mls @ 166.667 mls/hr 06/12/18 16:00 06/15/18 16:59 Vancomycin (Pre-Docked) IVPB 166.667 mls/hr Q24H YOAV Administration Protocol Insulin Aspart 1 vial 06/11/18 22:00 06/15/18 17:05 Novolog Vial Sliding Scale - SQ Not Given ACHS [facility] Protocol Lorazepam 0.5 mg 06/11/18 22:00 06/15/18 10:35 Ativan - PO Not Given BID [facility] Ondansetron HCl 4 mg 06/11/18 16:41 Zofran Injection IVPUSH Q6H PRN NAUSEA Polyethylene Glycol 17 gm 06/12/18 10:00 06/15/18 10:36 Miralax (For Daily Use) - PO Not Given DAILY [facility] Propranolol HCl 40 mg 06/11/18 22:00 06/15/18 10:36 Inderal - PO Not Given BID [facility] Risperidone 0.25 mg 06/11/18 22:00 06/15/18 10:35 Risperdal - PO Not Given BID [facility] Constitutional: Yes: Anxious Eyes: Yes: Conjunctiva Clear HENT: Yes: Normocephalic Neck: Yes: Supple Cardiovascular: Yes: Regular Rate and Rhythm Respiratory: Yes: Rhonchi Gastrointestinal Inspection: Yes: WNL ...Auscultate: Yes: Normoactive Bowel Sounds ...Palpate: Yes: Soft, Other (nontender) ...Rectal Exam: Yes: Guaiac Negative (rectum if impacted with semisolid brown guaiac negatve stool) Edema: No Labs: CBC, BMP 06/15/18 06:30 06/15/18 06:30 Laboratory Tests 05/19/18 05/20/18 05/21/18 20:10 06:40 06:18 Total Bilirubin 0.2 0.2 0.3 Direct Bilirubin AST 40 H 36 49 H ALT 82 H 65 H 58 Alkaline Phosphatase 171 H 141 H 133 H C-Reactive Protein Albumin 05/22/18 05/24/18 06/11/18 07:30 07:28 13:36 Total Bilirubin 0.3 0.2 0.2 Direct Bilirubin AST 33 24 71 H ALT 47 37 103 H Alkaline Phosphatase 133 H 121 H 200 H C-Reactive Protein Albumin 06/12/18 06/15/18 06:20 12:10 Total Bilirubin 0.3 0.2 Direct Bilirubin 0.1 AST 33 65 H ALT 90 H 81 H Alkaline Phosphatase 206 H 148 H C-Reactive Protein 10.5 H Albumin 1.5 L Laboratory Tests 05/19/18 05/20/18 05/20/18 20:10 06:40 06:40 Hgb 9.5 L Retic Count 2.29 H Iron Iron Saturation Ferritin 325.1 05/20/18 05/22/18 05/23/18 06:40 07:30 05:35 Hgb 7.7 L 10.2 L Retic Count Iron 12 L Iron Saturation 6 L Ferritin 05/27/18 06/11/18 06/15/18 06:30 13:36 06:30 Hgb 9.4 L 8.6 L 7.7 L Retic Count Iron Iron Saturation Ferritin Imaging - Results Ultrasound: Report Reviewed Mark Field Name: [facility] DEPARTMENT OF RADIOLOGY Phys: Bernardo Thomson MD : 1945 Age: 73 Sex: F [facility] Acct: [id number] Loc: [address] Exam Date: 06/11/18 Status: [place] [address] Unit Number: [id number] EXAM#: TYPE/EXAM: RESULT: [id number] US/ABDOMEN US -LIMITED HISTORY PROVIDED: Elevated liver function tests. Real time examination of the abdomen demonstrates the following: The gallbladder is somewhat contracted and does contain small calculi. There is no evidence of intrahepatic biliary duct dilatation. The common bile duct is mildly dilated measuring 1 cm. The possibility of a distal obstruction cannot be excluded and MRCP follow-up may be warranted, if clinically indicated. The liver is normal in size and texture with no intrahepatic masses seen. Hepatopedal flow is documented within the main portal vein. The pancreas is normal in size and texture with no pancreatic masses identified. The tail of the pancreas was not well visualized due to overlying bowel gas. There is no evidence of hydronephrosis or acute abnormalities of the right kidney. A small cyst is noted within the upper pole. There is no evidence of AAA. The IVC is patent. IMPRESSION: 1. Cholelithiasis with prominent CBD. 2. No sonographic evidence of hepatic pathology. Clinical correlation and follow-up recommended. Please see above discussion. Reported By: Chandrakant Sim MD 06/12/18813 Technologist: Demetrice Tobar Transcribed Date/Time: 06/12/18813 Streetcar Operator: Chandrakant Sim Printed Date/Time: By: Signed by: Chandrakant Sim Signed on: May-2018 08:15) Problem List - Problems (1) Transaminitis Assessment/Plan: The the small size of her gallstones and the fluctuations noted as well as a previous h/o abdominal pain repeated passage of gallstones is possible. I will order an MRCP but will also order a evaluation for other forms of chronic hepatitis. There are signs of cholangitis at present Code(s): R74.0 - NONSPEC ELEV OF LEVELS OF TRANSAMNS & LACTIC ACID DEHYDRGNSE (2) Gallstones Code(s): K80.20 - CALCULUS OF GALLBLADDER W/O CHOLECYSTITIS W/O OBSTRUCTION (3) Dilated bile duct Code(s): K83.8 - OTHER SPECIFIED DISEASES OF BILIARY TRACT (4) Anemia Assessment/Plan: Radha tells me that she had a colonoscopy. I will try to confirm this with her daughter when she visits. Code(s): D64.9 - ANEMIA, UNSPECIFIED Qualifiers: Chronic kidney disease stage: unspecified stage (5) Bipolar 1 disorder Code(s): F31.9 - BIPOLAR DISORDER, UNSPECIFIED (6) Diabetes Code(s): E11.9 - TYPE 2 DIABETES MELLITUS WITHOUT COMPLICATIONS Qualifiers: Diabetes mellitus type: type 2 Diabetes mellitus fdc insulin use: with fdc use Diabetes mellitus complication status: with skin complications Diabetes mellitus complication detail: with foot ulcer Qualified Code(s): E11.621 - Type 2 diabetes mellitus with foot ulcer; L97.509 - Non-pressure chronic ulcer of other part of unspecified foot with unspecified severity; Z79.4 - belt puncher (current) use of insulin (7) Constipation Code(s): K59.00 - CONSTIPATION, UNSPECIFIED Assessment/Plan MRCP Liver testing Given her iron deficiency and anemia need more data about previous endoscopic evaluations Miralax for fecal impaction
[2018-06-15] MEDS: BACITRACIN 15 GM TUBE TOPICAL OINTMENT TP SCH (21:58)
[2018-06-15] MEDS ORDERED: POLYETHYLENE GLYCOL 3350 119 GM BTL PO SCH (22:00)
[2018-06-15] MEDS ORDERED: MIDAZOLAM HCL 2 MG/2 ML SINGLE DOSE VIAL ONE (23:09)
[2018-06-15] MEDS ORDERED: LIDOCAINE HCL 1%, 10 MG/ML (20ML VIAL) ONE (23:13)
--- NOTE | 2018-06-15 23:36 | OP ---
Operative Note - Note: Operative Date: 06/15/18 Pre-Operative Diagnosis: Stage 4 necrotic sacral ulcer Operation: Excisional debridement skin, subcutanous tissue, muscle, sacrum Findings: necrotic tissue Post-Operative Diagnosis: Same as Pre-op Surgeon: Romero Solis Anesthesia: Fractional Estimated Blood Loss (mls): 25 Operative Report Dictated: Yes
[2018-06-16] MEDS ORDERED: ONDANSETRON 4 MG/2 ML VIAL IVPUSH PRN (00:21)
[2018-06-16] MEDS ORDERED: ACETAMINOPHEN 325 MG TABLET (FP) PO PRN (00:21)
[2018-06-16] MEDS: AMPICILLIN NA/SULBACTAM NA 3 GM in SODIUM CHLORIDE 100 ML IVPB SCH ×4 (02:02→14:32)
[2018-06-16] MEDS: POLYETHYLENE GLYCOL 3350 119 GM BTL PO SCH ×2 (05:49→14:31)
[2018-06-16] MEDS: INSULIN SLIDING SCALE (NOVOLOG) 1 VIAL SQ SCH ×4 (06:16→21:53)
[2018-06-16] MEDS ORDERED: INSULIN (NOVOLOG) ASPART 100 UNITS/ML 10ML VIAL ONE (06:44)
--- NOTE | 2018-06-16 07:27 | OP ---
DATE OF OPERATION: 06/15/2018 PREOPERATIVE DIAGNOSIS: Stage 4 sacral necrotic ulcer. POSTOPERATIVE DIAGNOSIS: Stage 4 sacral necrotic ulcer. PROCEDURE: Excisional debridement skin, subcutaneous tissue of left femoral sacrum. SURGEON: Romero Moran MD ANESTHESIA: Fractional. BLOOD LOSS: 25 mL. INDICATIONS: The patient is a 73-year-old female with stage 4 necrotic ulcer in the sacrum. It was foul-smelling, and it was thought that she would need a debridement. Patients daughter consented for the procedure understanding all risks, benefits, and alternatives. PROCEDURE IN DETAIL: Patient was then brought to the operating room and laid on the operating table in the supine manner, and then, switched to right-side down. We then went ahead and prepped and draped the sacrum in Betadine and in a sterile surgical manner. We then went ahead and injected 20 mL of lidocaine in the area. We then went ahead and took a No. 15 blade and excised all the skin and subcutaneous tissue and the necrotic tissue all the way down to the muscle. We were able to in certain areas, the sacrum was exposed. Where there was some bone exposed, all of the necrotic tissue down to muscle and including muscle was removed. Bovie electrocautery was used to control hemostasis. We then irrigated the copiously, and a wet Kerlix was then placed and packed in the wound. Dry 4x4s, ABD pad, and tape were placed. Patient tolerated the procedure with no complications. Patient transferred to PACU in stable condition. ROMERO MORAN DO [id number]
[2018-06-16 08:19] LABS: BASO % 0.7 % (0-2.0); EOS % 0.9 % (0-4.5); HEMATOCRIT 27.1 % (32.4-45.2); HEMOGLOBIN 8.3 GM/dL (10.7-15.3); LYMPH % 18.8 % (8-40); MCH 27.4 pg (25.7-33.7); MCHC 30.5 g/dl (32.0-36.0); MEAN CELL VOLUME 89.8 fl (80-96); MEAN PLT VOLUME 7.9 fl (7.5-11.1); MONO % 8.4 % (3.8-10.2); NEUT % 71.2 % (42.8-82.8); PLATELET COUNT 490 K/MM3 (134-434); RBC 3.02 M/mm3 (3.60-5.2); RDW 18.4 % (11.6-15.6); WHITE BLOOD COUNT 8.7 K/mm3 (4.0-10.0)
[2018-06-16] MEDS: ALBUTEROL SO4 2.5/IPRATROPIUM 0.5 INH SOL 3 ML VIAL.NEB. NEB SCH ×3 (08:30→19:38)
[2018-06-16 09:32] LABS: ALBUMIN 1.7 g/dl (3.4-5.0); ALK PHOS 151 U/L (45-117); ANION GAP 7 MMOL/L (8-16); BILIRUBIN,DIRECT 0.1 mg/dL (0.0-0.2); BILIRUBIN,TOTAL 0.5 mg/dL (0.2-1); BLOOD UREA NITROGEN 14 mg/dL (7-18); CALCIUM 8.7 mg/dL (8.5-10.1); CHLORIDE 128 mmol/L (98-107); CO2 24 mmol/L (21-32); CREATININE 1.2 mg/dL (0.55-1.3); GLUCOSE,RANDOM 105 mg/dL (74-106); MAGNESIUM 2.4 mg/dL (1.8-2.4); PHOSPHOROUS 3.5 mg/dL (2.5-4.9); POTASSIUM 3.8 mmol/L (3.5-5.1); SGOT/AST 27 U/L (15-37); SGPT/ALT 67 U/L (13-61); SODIUM 159 mmol/L (136-145); TOT PROT 5.9 g/dl (6.4-8.2)
[2018-06-16 09:39] LABS: AMYLASE 32 U/L (25-115); LDH 186 U/L (84-246); LIPASE 83 U/L (73-393)
[2018-06-16] MEDS ORDERED: COLLAGENASE CLOSTRIDIUM HIST. 30 GRAMS TUBE TP SCH (10:00)
[2018-06-16] MEDS ORDERED: PT OWN MED DRAWER 7, Y5N ONE ×3 (10:01→21:35)
[2018-06-16] MEDS: ASCORBIC ACID 500 MG TABLET (FP) PO SCH (10:13)
[2018-06-16] MEDS: LORazepam 0.5 MG TABLET PO SCH ×2 (10:13→21:48)
[2018-06-16] MEDS: BISACODYL 5 MG TABLET.DR (FP) PO SCH (10:13)
[2018-06-16] MEDS: APIXABAN 2.5 MG TABLET PO SCH ×2 (10:13→21:48)
[2018-06-16] MEDS: FERROUS SO4 325 MG TABLET (FP) PO SCH (10:13)
[2018-06-16] MEDS: risperiDONE 0.25 MG TABLET (FP) PO SCH ×2 (10:14→21:48)
[2018-06-16] MEDS: COLLAGENASE CLOSTRIDIUM HIST. 30 GRAMS TUBE TP SCH (10:15)
--- NOTE | 2018-06-16 11:26 | PN ---
Progress Note (short form) - Note Progress Note: POD#1 Vital Signs Period Temp Pulse Resp BP Sys/Uribe Pulse Ox Last 24 Hr 97.5 F-98.9 F 98-130 14-26 104-166/53-80 95-100 GEn: pt resting comfortabley in bed Sacrum: dressing removed. No evidence of bleeding to the sacral region. Minimal fibrous tissue at base. Right buttock with fibrinous/soft tissue. No drainage noted. CBC, BMP 06/16/18 07:00 06/16/18 07:30 A/p: 73 yo female s/p sacral ulcer debridment Dressing orders placed this am with santyl/wet to dry/kerlix and optifoam Continue to off load areas of pressure
--- NOTE | 2018-06-16 11:38 | PN ---
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 Diet order Reg/thin liquid. Pt reported to be drinking a lot, including supplement. Nursing reports she is a bit congested. Suggest hold lunch, monitor pulmonary staus, Dys puree/nectar thick liquid/ Ensure compact/magic cup/Ensure pudding. MBS, as indicated once medically stable.
[2018-06-16] MEDS: BACITRACIN 15 GM TUBE TOPICAL OINTMENT TP SCH ×2 (11:51→21:47)
--- NOTE | 2018-06-16 13:22 | PN ---
Progress Note (short form) - Note Progress Note: Anesthesia postop note 73 y/o F s/p MAC for debridment of sacral decubitus POD#1, vss, alert and awake No anesthesia complications.
--- NOTE | 2018-06-16 13:41 | PN ---
Progress Note, Physician History of Present Illness: patient post op daughter in room no complaints - Current Medication List Current Medications: Active Medications Acetaminophen (Tylenol -) 650 mg PO Q4H PRN PRN Reason: FEVER Albuterol/Ipratropium (Duoneb -) 1 amp NEB RTID [facility] Last Admin: 06/16/18 08:30 Dose: 1 amp Apixaban (Eliquis -) 2.5 mg PO BID YOAV Last Admin: 06/16/18 10:13 Dose: 2.5 mg Ascorbic Acid (Vitamin C -) 500 mg PO DAILY [facility] Last Admin: 06/16/18 10:13 Dose: 500 mg Bacitracin (Bacitracin -) 1 applic TP BID [facility] Last Admin: 06/16/18 11:51 Dose: 1 applic Bisacodyl (Dulcolax -) 5 mg PO DAILY [facility] Last Admin: 06/16/18 10:13 Dose: 5 mg Collagenase (Santyl -) 1 applic TP DAILY [facility]; Protocol Last Admin: 06/16/18 10:15 Dose: 1 applic Ferrous Sulfate (Feosol -) 325 mg PO DAILY [facility] Last Admin: 06/16/18 10:13 Dose: 325 mg Ampicillin Sodium/Sulbactam (Sodium 3 gm/ Sodium Chloride) 100 mls @ 200 mls/ hr IVPB Q6H-IV YOAV Last Admin: 06/16/18 10:13 Dose: 200 mls/hr Vancomycin HCl (Vancomycin (Pre-Docked)) 1,000 mg in 250 mls @ 166.667 mls/hr IVPB Q24H YOAV; Protocol Insulin Aspart (Novolog Vial Sliding Scale -) 1 vial SQ ACHS [facility]; Protocol Last Admin: 06/16/18 11:51 Dose: 8 units Lorazepam (Ativan -) 0.5 mg PO BID [facility] Last Admin: 06/16/18 10:13 Dose: 0.5 mg Ondansetron HCl (Zofran Injection) 4 mg IVPUSH Q6H PRN PRN Reason: NAUSEA Polyethylene Glycol (Miralax (For Daily Use) -) 17 gm PO TID [facility] Last Admin: 06/16/18 05:49 Dose: 17 gm Propranolol HCl (Inderal -) 40 mg PO BID [facility] Last Admin: 06/16/18 10:14 Dose: 40 mg Risperidone (Risperdal -) 0.25 mg PO BID [facility] Last Admin: 06/16/18 10:14 Dose: 0.25 mg - Objective Vital Signs: Vital Signs Temperature 98.6 F 06/16/18 06:00 Pulse Rate 106 H 06/16/18 06:00 Respiratory Rate 22 H 06/16/18 06:00 Blood Pressure 150/53 L 06/16/18 06:00 O2 Sat by Pulse Oximetry (%) 95 06/16/18 02:00 Constitutional: Yes: No Distress, Calm Cardiovascular: Yes: Regular Rate and Rhythm Respiratory: Yes: Regular, Poor Air Entry, Other Gastrointestinal: Yes: Normal Bowel Sounds, Soft Musculoskeletal: Yes: Other Extremities: Yes: Other (b/l hel ulcers) Wound/Incision: Yes: Dressing Dry and Intact Neurological: Yes: Alert Psychiatric: Yes: Alert Labs: CBC, BMP 06/16/18 07:00 06/16/18 07:30 Assessment/Plan Problem List - Problems (1) Decubitus ulcer of heel, bilateral, stage 3 Code(s): L89.613 - PRESSURE ULCER OF RIGHT HEEL, STAGE 3; L89.623 - PRESSURE ULCER OF LEFT HEEL, STAGE 3 (2) Transaminitis Code(s): R74.0 - NONSPEC ELEV OF LEVELS OF TRANSAMNS & LACTIC ACID DEHYDRGNSE (3) History of DVT (deep vein thrombosis) Code(s): Z86.718 - PERSONAL HISTORY OF OTHER VENOUS THROMBOSIS AND EMBOLISM (4) Bipolar 1 disorder Code(s): F31.9 - BIPOLAR DISORDER, UNSPECIFIED (5) Functional quadriplegia Code(s): R53.2 - FUNCTIONAL QUADRIPLEGIA (6) HTN (hypertension) Code(s): I10 - ESSENTIAL (PRIMARY) HYPERTENSION Qualifiers: Hypertension type: essential hypertension Qualified Code(s): I10 - Essential (primary) hypertension (7) Lactic acidosis Code(s): E87.2 - ACIDOSIS (8) Diabetes Code(s): E11.9 - TYPE 2 DIABETES MELLITUS WITHOUT COMPLICATIONS Qualifiers: Diabetes mellitus type: type 2 Diabetes 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
--- NOTE | 2018-06-16 14:17 | PN ---
Progress Note, Physician Chief Complaint: Ms Estrada says she is fine. Denies cp, sob, n/v. - Current Medication List Current Medications: Active Medications Acetaminophen (Tylenol -) 650 mg PO Q4H PRN PRN Reason: FEVER Albuterol/Ipratropium (Duoneb -) 1 amp NEB RTID [facility] Last Admin: 06/16/18 08:30 Dose: 1 amp Apixaban (Eliquis -) 2.5 mg PO BID YOAV Last Admin: 06/16/18 10:13 Dose: 2.5 mg Ascorbic Acid (Vitamin C -) 500 mg PO DAILY YOAV Last Admin: 06/16/18 10:13 Dose: 500 mg Bacitracin (Bacitracin -) 1 applic TP BID [facility] Last Admin: 06/16/18 11:51 Dose: 1 applic Bisacodyl (Dulcolax -) 5 mg PO DAILY [facility] Last Admin: 06/16/18 10:13 Dose: 5 mg Collagenase (Santyl -) 1 applic TP DAILY YOAV; Protocol Last Admin: 06/16/18 10:15 Dose: 1 applic Ferrous Sulfate (Feosol -) 325 mg PO DAILY [facility] Last Admin: 06/16/18 10:13 Dose: 325 mg Ampicillin Sodium/Sulbactam (Sodium 3 gm/ Sodium Chloride) 100 mls @ 200 mls/ hr IVPB Q6H-IV YOAV Last Admin: 06/16/18 10:13 Dose: 200 mls/hr Vancomycin HCl (Vancomycin (Pre-Docked)) 1,000 mg in 250 mls @ 166.667 mls/hr IVPB Q24H YOAV; Protocol Insulin Aspart (Novolog Vial Sliding Scale -) 1 vial SQ ACHS YOAV; Protocol Last Admin: 06/16/18 11:51 Dose: 8 units Lorazepam (Ativan -) 0.5 mg PO BID [facility] Last Admin: 06/16/18 10:13 Dose: 0.5 mg Ondansetron HCl (Zofran Injection) 4 mg IVPUSH Q6H PRN PRN Reason: NAUSEA Polyethylene Glycol (Miralax (For Daily Use) -) 17 gm PO TID [facility] Last Admin: 06/16/18 05:49 Dose: 17 gm Propranolol HCl (Inderal -) 40 mg PO BID [facility] Last Admin: 06/16/18 10:14 Dose: 40 mg Risperidone (Risperdal -) 0.25 mg PO BID YOAV Last Admin: 06/16/18 10:14 Dose: 0.25 mg - Objective Vital Signs: Vital Signs Temperature 37.0 C 06/16/18 06:00 Pulse Rate 106 H 06/16/18 06:00 Respiratory Rate 22 H 06/16/18 06:00 Blood Pressure 150/53 L 06/16/18 06:00 O2 Sat by Pulse Oximetry (%) 95 06/16/18 02:00 Constitutional: Yes: Well Nourished, No Distress, Calm Cardiovascular: Yes: Regular Rate and Rhythm. No: Gallop, Murmur, Rub Respiratory: Yes: Regular, CTA Bilaterally. No: Rales, Rhonchi, Wheezes Gastrointestinal: Yes: Normal Bowel Sounds, Soft. No: Distention, Tenderness Extremities: Yes: Other (both heels wrapped) Edema: No Labs: CBC, BMP 06/16/18 07:00 06/16/18 07:30 Problem List - Problems (1) Stage 4 skin ulcer of sacral region Code(s): L98.429 - NON-PRESSURE CHRONIC ULCER OF BACK WITH UNSPECIFIED SEVERITY (2) Decubitus ulcer of heel, bilateral, stage 3 Code(s): L89.613 - PRESSURE ULCER OF RIGHT HEEL, STAGE 3; L89.623 - PRESSURE ULCER OF LEFT HEEL, STAGE 3 (3) Transaminitis Code(s): R74.0 - NONSPEC ELEV OF LEVELS OF TRANSAMNS & LACTIC ACID DEHYDRGNSE (4) History of DVT (deep vein thrombosis) Code(s): Z86.718 - PERSONAL HISTORY OF OTHER VENOUS THROMBOSIS AND EMBOLISM (5) Bipolar 1 disorder Code(s): F31.9 - BIPOLAR DISORDER, UNSPECIFIED (6) Functional quadriplegia Code(s): R53.2 - FUNCTIONAL QUADRIPLEGIA (7) HTN (hypertension) Code(s): I10 - ESSENTIAL (PRIMARY) HYPERTENSION Qualifiers: Hypertension type: essential hypertension Qualified Code(s): I10 - Essential (primary) hypertension (8) Lactic acidosis Code(s): E87.2 - ACIDOSIS (9) Diabetes Code(s): E11.9 - TYPE 2 DIABETES MELLITUS WITHOUT COMPLICATIONS Qualifiers: Diabetes mellitus type: type 2 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 insulin 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: with retirement use Diabetes mellitus complication status: with skin complications Diabetes mellitus complication detail: with foot ulcer Qualified Code(s): E11.621 - Type 2 diabetes mellitus with foot ulcer; L97.509 - Non-pressure chronic ulcer of other part of unspecified foot with unspecified severity; Z79.4 - long term care administrator (current) use of insulin (10) Cough Code(s): R05 - COUGH Assessment/Plan (1) Multiple decubitus ulceration of heels and sacrum Assessment/Plan: -appreciate vascular surgery and podiatry assistance -reviewed podiatry note -ESR/CRP very elevated -will obtain foot x-rays -high suspicion for osteomyelitis -case d/w ID Code(s): L89.613 - PRESSURE ULCER OF RIGHT HEEL, STAGE 3; L89.623 - PRESSURE ULCER OF LEFT HEEL, STAGE 3 (2) Transaminitis Assessment/Plan: -appreciate GI and surgery assistance -case d/w general surgery, no urgent need for intervention -agree with MRCP Code(s): R74.0 - NONSPEC ELEV OF LEVELS OF TRANSAMNS & LACTIC ACID DEHYDRGNSE (3) History of DVT (deep vein thrombosis) Assessment/Plan: -continue eliquis Code(s): Z86.718 - PERSONAL HISTORY OF OTHER VENOUS THROMBOSIS AND EMBOLISM (4) Bipolar 1 disorder Assessment/Plan: -continue home regimen -well controlled Code(s): F31.9 - BIPOLAR DISORDER, UNSPECIFIED (5) Functional quadriplegia Assessment/Plan: -PT following Code(s): R53.2 - FUNCTIONAL QUADRIPLEGIA (6) HTN (hypertension) Assessment/Plan: -continue propanolol Code(s): I10 - ESSENTIAL (PRIMARY) HYPERTENSION Qualifiers: Hypertension type: essential hypertension Qualified Code(s): I10 - Essential (primary) hypertension (7) Lactic acidosis Assessment/Plan: -resolved Code(s): E87.2 - ACIDOSIS (8) Diabetes Assessment/Plan: -FSBS and SSI -diabetic diet -glucerna Code(s): E11.9 - TYPE 2 DIABETES MELLITUS WITHOUT COMPLICATIONS Qualifiers: Diabetes mellitus type: type 2 Diabetes mellitus retirement insulin use: with petroleum terminal plant operator use Diabetes mellitus complication status: with skin complications Diabetes mellitus complication detail: with foot ulcer Qualified Code(s): E11.621 - Type 2 diabetes mellitus with foot ulcer; L97.509 - Non-pressure chronic ulcer of other part of unspecified foot with unspecified severity; Z79.4 - long term care administrator (current) use of insulin (9) Cough Assessment/Plan: -case d/w speech therapy -trial of dysphagia diet with nectar thick liquids -may need barium swallow Code(s): R05 - COUGH
--- NOTE | 2018-06-16 14:18 | PN ---
Progress Note (short form) - Note Progress Note: Podiatry F/U; Seen/evaluated at bedside NAD. Denies F/V/N/C/SOB/CP. Afebrile. S/p debridement of sacral decubitus with Dr. Solis. HODAN: Bilateral heel pressure ulcers with necrotic base, exposed distal aspect of achilles tendon, no purulent drainage, no fluctuance, no periwound erythema, no streaking cellulitis, no signs of active infection. Mild tenderness to palpation. Imp: 73 year old F with bilateral heel pressure ulcers 1. Discussed treatment options with patient and her daughter. Prognosis is guarded given extent of pressure ulcers and the fact that patient is nonambulatory. Will try to treat conservatively and patient understands that if condition worsens or she develops infection will need operative debridement. She can f/u with me in wound healing center. Will follow closely there. Kyung Ramirez DPM
[2018-06-16] MEDS: VANCOMYCIN 1 GRAM (PRE-DOCKED) 1,000 MG/250 ML BAG IVPB SCH (17:29)
[2018-06-16] MEDS ORDERED: DEXTROSE 5%-WATER - 1,000 ML IV SCH (19:45)
--- NOTE | 2018-06-16 19:57 | PN ---
GI Progress Note Subjective: GI NOte: LFTs trending down but Na has risen to 159. She has been NPO and receiving mainly saline solusets with her Unasyn. She tells me that she is thirsty but otherwise feels okay. She tells me that she is chronically in [place] [address]. I have reviewed her meds with the pharmacist and her nurse [place]. All saline will be stopped and I have started D5W and gotten a repeat lytes and lithium level. - Objective Vital Signs: Vital Signs Temperature 98.6 F 06/16/18 06:00 Pulse Rate 106 H 06/16/18 06:00 Respiratory Rate 22 H 06/16/18 06:00 Blood Pressure 150/53 L 06/16/18 06:00 O2 Sat by Pulse Oximetry (%) 95 06/16/18 02:00 Laboratory Tests 06/11/18 06/12/18 06/13/18 13:36 06:20 07:30 Sodium 136 142 Chloride Carbon Dioxide BUN 13 16 Creatinine 1.0 1.3 AST 71 H 33 ALT 103 H 90 H Alkaline Phosphatase 200 H 206 H 06/14/18 06/15/18 06/15/18 06:00 06:30 12:10 Sodium 148 H 149 H Chloride Carbon Dioxide BUN 16 Creatinine 1.0 AST 65 H ALT 81 H Alkaline Phosphatase 148 H 06/16/18 07:30 Sodium 159 H Chloride 128 H Carbon Dioxide 24 BUN 14 Creatinine 1.2 AST 27 ALT 67 H Alkaline Phosphatase 151 H Constitutional: No Distress Cardiovascular: Yes: Regular Rate and Rhythm Respiratory: Yes: Rhonchi ...Auscultate: Yes: Hypoactive Bowel Sounds ...Palpate: Yes: Soft ...Percussion: Yes: Other (nontender) Labs: CBC, BMP 06/16/18 07:00 06/16/18 07:30 Assessment/Plan acute hypernatremia due to dehydration/NPO state with only NS soluset IV repletion possibly superimposed on lithium associated diabetes insipidus D5W ordered All saline stopped Stat lytes ordered. Will consult renal Await MRCP Problem List - Problems (1) Acute hypernatremia Assessment/Plan: Suspect true acute hypernatremia due to dehydration with only saline repletion in antibiotic solusets, possibly in the setting of lithium induced nephrogenic diabetes insipidus. Have ordered that all sodium infusions be stopped, a stat repeat lytes and lithium level as well as urine and serum osmolarity and have started D5W. Will request nephrology consultation given possible DI. Doubt that Miralax is playing a role but yessi stop it as diarrhea will aggravate volume and electrolyte deficiency Code(s): E87.0 - HYPEROSMOLALITY AND HYPERNATREMIA (2) Secondary nephrogenic diabetes insipidus Assessment/Plan: Can occur with chronic lithium usage, need not have toxic levels Code(s): N25.1 - NEPHROGENIC DIABETES INSIPIDUS (3) Transaminitis Assessment/Plan: Trending down. Await MRCP. Code(s): R74.0 - NONSPEC ELEV OF LEVELS OF TRANSAMNS & LACTIC ACID DEHYDRGNSE (4) Gallstones Code(s): K80.20 - CALCULUS OF GALLBLADDER W/O CHOLECYSTITIS W/O OBSTRUCTION (5) Dilated bile duct Code(s): K83.8 - OTHER SPECIFIED DISEASES OF BILIARY TRACT (6) Anemia Code(s): D64.9 - ANEMIA, UNSPECIFIED Qualifiers: Chronic kidney disease stage: unspecified stage (7) Bipolar 1 disorder Code(s): F31.9 - BIPOLAR DISORDER, UNSPECIFIED (8) Diabetes Code(s): E11.9 - TYPE 2 DIABETES MELLITUS WITHOUT COMPLICATIONS Qualifiers: Diabetes mellitus type: type 2 Diabetes mellitus intermediate insulin use: with intermediate use Diabetes mellitus complication status: with skin complications Diabetes mellitus complication detail: with foot ulcer Qualified Code(s): E11.621 - Type 2 diabetes mellitus with foot ulcer; L97.509 - Non-pressure chronic ulcer of other part of unspecified foot with unspecified severity; Z79.4 - [facility] (current) use of insulin (9) Constipation Code(s): K59.00 - CONSTIPATION, UNSPECIFIED
[2018-06-16] MEDS: AMPICILLIN NA/SULBACTAM NA 3 GM in DEXTROSE 5%-WATER 100 ML IVPB SCH (21:48)
[2018-06-16 23:16] LABS: ANION GAP 8 MMOL/L (8-16); BLOOD UREA NITROGEN 16 mg/dL (7-18); CALCIUM 8.3 mg/dL (8.5-10.1); CHLORIDE 119 mmol/L (98-107); CO2 24 mmol/L (21-32); CREATININE 1.4 mg/dL (0.55-1.3); POTASSIUM 4.2 mmol/L (3.5-5.1); SODIUM 151 mmol/L (136-145)
[2018-06-16 23:19] LABS: GLUCOSE,RANDOM 310 mg/dL (74-106)
[2018-06-17] MEDS: AMPICILLIN NA/SULBACTAM NA 3 GM in DEXTROSE 5%-WATER 100 ML IVPB SCH ×4 (02:46→21:04)
[2018-06-17 06:09] LABS: HBSAG SCREEN Negative (Negative); HEP B CORE AB, TOT Negative (Negative)
[2018-06-17] MEDS: INSULIN SLIDING SCALE (NOVOLOG) 1 VIAL SQ SCH ×4 (06:31→21:29)
[2018-06-17 06:39] LABS: BASO % 0.5 % (0-2.0); EOS % 2.5 % (0-4.5); HEMATOCRIT 23.1 % (32.4-45.2); HEMOGLOBIN 7.1 GM/dL (10.7-15.3); LYMPH % 25.3 % (8-40); MCH 27.6 pg (25.7-33.7); MCHC 30.6 g/dl (32.0-36.0); MEAN CELL VOLUME 90.2 fl (80-96); MONO % 7.4 % (3.8-10.2); NEUT % 64.3 % (42.8-82.8); PLATELET COUNT 378 K/MM3 (134-434); RBC 2.56 M/mm3 (3.60-5.2); RDW 18.4 % (11.6-15.6); WHITE BLOOD COUNT 8.8 K/mm3 (4.0-10.0)
[2018-06-17 07:20] LABS: ALBUMIN 1.4 g/dl (3.4-5.0); ALK PHOS 116 U/L (45-117); ANION GAP 7 MMOL/L (8-16); BILIRUBIN,DIRECT 0.1 mg/dL (0.0-0.2); BILIRUBIN,TOTAL 0.2 mg/dL (0.2-1); BLOOD UREA NITROGEN 13 mg/dL (7-18); CALCIUM 7.9 mg/dL (8.5-10.1); CHLORIDE 122 mmol/L (98-107); CO2 23 mmol/L (21-32); CREATININE 1.2 mg/dL (0.55-1.3); GLUCOSE,RANDOM 234 mg/dL (74-106); MAGNESIUM 2.1 mg/dL (1.8-2.4); PHOSPHOROUS 3.1 mg/dL (2.5-4.9); POTASSIUM 3.8 mmol/L (3.5-5.1); SGOT/AST 42 U/L (15-37); SGPT/ALT 60 U/L (13-61); SODIUM 153 mmol/L (136-145); TOT PROT 4.8 g/dl (6.4-8.2)
[2018-06-17] MEDS: ALBUTEROL SO4 2.5/IPRATROPIUM 0.5 INH SOL 3 ML VIAL.NEB. NEB SCH ×3 (08:08→21:03)
[2018-06-17] MEDS ORDERED: PT OWN MED DRAWER 7, Y5N ONE ×4 (08:24→20:41)
[2018-06-17] MEDS: LORazepam 0.5 MG TABLET PO SCH ×2 (09:23→21:27)
[2018-06-17] MEDS: risperiDONE 0.25 MG TABLET (FP) PO SCH ×2 (09:23→21:27)
[2018-06-17] MEDS: BISACODYL 5 MG TABLET.DR (FP) PO SCH (09:23)
[2018-06-17] MEDS: APIXABAN 2.5 MG TABLET PO SCH ×2 (09:23→21:27)
[2018-06-17] MEDS: ASCORBIC ACID 500 MG TABLET (FP) PO SCH (09:23)
[2018-06-17] MEDS: BACITRACIN 15 GM TUBE TOPICAL OINTMENT TP SCH ×2 (09:24→21:28)
[2018-06-17] MEDS: FERROUS SO4 325 MG TABLET (FP) PO SCH (09:24)
[2018-06-17] MEDS: COLLAGENASE CLOSTRIDIUM HIST. 30 GRAMS TUBE TP SCH (09:24)
[2018-06-17 10:12] LABS: TRANSGLUTAMINASE IGA < 2 U/mL (0-3); TRANSGLUTAMINASE IGG 4 U/mL (0-5)
--- NOTE | 2018-06-17 12:09 | CONSULT ---
Consult Consult Specialty:: Nephrology Reason for Consultation:: hypernatremia - History of Present Illness Chief Complaint: called for hypernatremia History of Present Illness: Pt is a 73 year old female with pmhx of DM, HTN, pressure ulcers, DVT and bipolar who was initially sent in for failure to thrive. She also had a worsening heel ulcer. Initially she had decreased PO intake. She was admitted for treatment. I reviewed her chart. She developed hypernatremia and I was called to evaluate her. She says she does feel thirsty and has been drinking water. She is on d5w and had been on saline. She is incontinent and unable to quantify how much urine she makes. She says she was on lithium in the [place] however the [place] records do not show it as part of her meds. - History Source History Provided By: Patient, Medical Record - Past Medical History Cardio/Vascular: Yes: HTN, Hyperlipdemia Hepatobiliary: Yes: Cholelithiasis, Other (chronically dilated CBD) Psych: Yes: Bipolar Endocrine: Yes: Diabetes Mellitus - Past Surgical History Additional Surgical History: Uterine polyps removed - Alcohol/Substance Use Hx Alcohol Use: No History of Substance Use: reports: None - Smoking History Smoking history: Never smoked Have you smoked in the past 12 months: No If you are a former smoker, when did you quit?: when entered shelter - Social History Usual Living Arrangement: [facility] ADL: Support Services Occupation: retired History of Recent Travel: No Home Medications - Allergies Allergies/Adverse Reactions: Allergies Allergy/AdvReac Type Severity Reaction Status Date / Time No Known Allergies Allergy Verified 05/19/18 18:55 - Home Medications Home Medications: Ambulatory Orders Aa/Hydrolyzed Collagen, Whey [Lps 15-30 Liquid] 30 ml PO BID 05/19/18 Acetaminophen [Tylenol] 650 mg PO QID PRN 05/19/18 Apixaban [Eliquis -] 2.5 mg PO BID 05/19/18 Ascorbic Acid [Vitamin C -] 500 mg PO DAILY 05/19/18 Bacitracin - [Bacitracin Topical Ointment -] 1 applic TP BID 05/19/18 Bisacodyl [Bisacodyl -] 5 mg PO DAILY 05/19/18 Collagenase Clostridium Hist. [Santyl -] 1 applic TP BID 05/19/18 Ferrous Sulfate [Feosol] 1 tab PO DAILY 05/19/18 Insulin Glargine,Hum.rec.anlog [Lantus Solostar] 14 unit SQ DAILY 05/19/18 Insulin Lispro [Humalog Kwikpen U-100] 0 unit SQ ASDIR 05/19/18 LORazepam [Ativan] 0.5 mg PO BID 05/19/18 Mvit,Calcium,Iron,Mins/A.acids [[place] Double Strength Capsule] 1 each PO DAILY 05/19/18 Polyethylene Glycol 3350 [Miralax 119 gm Btl -] 17 gm PO DAILY 05/19/18 Propranolol HCl 40 mg PO BID 05/19/18 Risperidone [Risperdal -] 0.25 mg PO BID 05/19/18 Senna Jud Extract [Senna] 7.5 ml PO HS 05/19/18 Albuterol 2.5/Ipratropium 0.5 [Duoneb -] 1 amp NEB TID 06/11/18 Menthol/Zinc Oxide [Calmoseptine Ointment] 3.5 gm TP HS 06/11/18 Family Disease History - Family Disease History Family Disease History: Heart Disease: Father (had OR), Brother ( 63 stomach cancer), CA: Sister (breast cancer) Review of Systems - Review of Systems Constitutional: reports: Malaise Eyes: reports: No Symptoms HENT: reports: No Symptoms Neck: reports: No Symptoms Cardiovascular: reports: No Symptoms Respiratory: reports: No Symptoms Gastrointestinal: reports: No Symptoms Genitourinary: reports: Incontinence Musculoskeletal: reports: Muscle Weakness Psychiatric: reports: Depression Physical Exam Vital Signs: Vital Signs Temperature 98.4 F 06/17/18 10:41 Pulse Rate 94 H 06/17/18 10:41 Respiratory Rate 18 06/17/18 10:41 Blood Pressure 120/62 06/17/18 10:41 O2 Sat by Pulse Oximetry (%) 95 06/16/18 21:00 Constitutional: Yes: Calm Eyes: Yes: Conjunctiva Clear HENT: Yes: Atraumatic Cardiovascular: Yes: S1, S2 Respiratory: Yes: CTA Bilaterally Gastrointestinal: Yes: Soft Renal/: Yes: Incontinence Musculoskeletal: Yes: Muscle Weakness Edema: No Neurological: Yes: Oriented Psychiatric: Yes: Oriented Labs: CBC, BMP 06/17/18 05:30 06/17/18 05:30 Laboratory Tests 06/11/18 06/11/18 06/12/18 13:36 14:45 06:20 Hgb Sodium 136 136 POC Glucometer Random Glucose Urine Glucose (UA) 3+ H [place] ADA Screen 06/13/18 06/14/18 06/15/18 07:30 06:00 06:30 Hgb Sodium 142 148 H 149 H POC Glucometer Random Glucose Urine Glucose (UA) [place] ADA Screen 06/16/18 06/16/18 06/16/18 07:00 07:30 07:30 Hgb 8.3 L Sodium 159 H POC Glucometer Random Glucose Urine Glucose (UA) [place] ADA Screen Pending 06/16/18 06/16/18 06/16/18 21:15 21:15 21:50 Hgb Sodium 151 H POC Glucometer 330 Random Glucose 310 H* Urine Glucose (UA) [place] Pending ADA Screen 06/17/18 06/17/18 06/17/18 05:30 05:30 06:30 Hgb 7.1 L Sodium 153 H POC Glucometer 254 Random Glucose 234 H Urine Glucose (UA) [place] ADA Screen 06/17/18 11:41 Hgb Sodium POC Glucometer 331 Random Glucose Urine Glucose (UA) [place] ADA Screen Imaging - Results Chest X-ray: Report Reviewed Problem List - Problems (1) Acute hypernatremia Code(s): E87.0 - HYPEROSMOLALITY AND HYPERNATREMIA (2) HTN (hypertension) Code(s): I10 - ESSENTIAL (PRIMARY) HYPERTENSION Qualifiers: Hypertension type: essential hypertension Qualified Code(s): I10 - Essential (primary) hypertension Assessment/Plan Current Medications Generic Name Dose Route Start Last Admin Trade Name Freq PRN Reason Stop Dose Admin Acetaminophen 650 mg 06/16/18 00:21 Tylenol - PO Q4H PRN FEVER Albuterol/Ipratropium 1 amp 06/16/18 08:00 06/17/18 08:08 Duoneb - NEB 1 amp RTID YOAV Administration Apixaban 2.5 mg 06/16/18 10:00 06/17/18 09:23 Eliquis - PO 2.5 mg BID YOAV Administration Ascorbic Acid 500 mg 06/16/18 10:00 06/17/18 09:23 Vitamin C - PO 500 mg DAILY YOAV Administration Bacitracin 1 applic 06/16/18 10:00 06/17/18 09:24 Bacitracin - TP 1 applic BID YOAV Administration Bisacodyl 5 mg 06/16/18 10:00 06/17/18 09:23 Dulcolax - PO 5 mg DAILY YOAV Administration Collagenase 1 applic 06/16/18 10:00 06/17/18 09:24 Santyl - TP 1 applic DAILY YOAV Administration Protocol Ferrous Sulfate 325 mg 06/16/18 10:00 06/17/18 09:24 Feosol - PO 325 mg DAILY YOAV Administration Vancomycin HCl 1,000 mg in 250 mls @ 166.667 mls/hr 06/16/18 16:00 06/16/18 17:29 Vancomycin (Pre-Docked) IVPB 166.667 mls/hr Q24H YOAV Administration Protocol Ampicillin Sodium/Sulbactam 100 mls @ 200 mls/hr 06/16/18 21:00 06/17/18 08: 26 Sodium 3 gm/ Dextrose IVPB 200 mls/hr Q6H-IV YOAV Administration Dextrose 1,000 mls @ 125 mls/hr 06/16/18 19:45 06/16/18 22:30 D5w - IV 125 mls/hr ASDIR YOAV Administration Insulin Aspart 1 vial 06/16/18 07:00 06/17/18 11:42 Novolog Vial Sliding Scale - SQ 8 units ACHS YOAV Administration Protocol Lorazepam 0.5 mg 06/16/18 10:00 06/17/18 09:23 Ativan - PO 0.5 mg BID YOAV Administration Ondansetron HCl 4 mg 06/16/18 00:21 Zofran Injection IVPUSH Q6H PRN NAUSEA Propranolol HCl 40 mg 06/16/18 10:00 06/17/18 09:23 Inderal - PO 40 mg BID YOAV Administration Risperidone 0.25 mg 06/16/18 10:00 06/17/18 09:23 Risperdal - PO 0.25 mg BID YOAV Administration Impression 1. Hypernatremia 2. bipolar 3. DM 4. HTN 5. DVT 6. glucosuria Plan - d/c all fluids - give pt free water by mouth - will need better glucose control - place [facility] and monitor urine output (will use for 48 hours) - check urine lytes and urine osm - will need to see if she has an osmotic diuresis - unclear if she was on lithium, med was not in [place] records which are on chart. Follow level - monitor sodium - monitor for polyuria Dr Bhagat
--- NOTE | 2018-06-17 12:12 | PN ---
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 MBS to provide most liberal diet pt can tolerate.
--- NOTE | 2018-06-17 12:21 | PN ---
Progress Note, Physician Chief Complaint: Ms Estrada says she is fine. Denies cp, sob, n/v. - Current Medication List Current Medications: Active Medications Acetaminophen (Tylenol -) 650 mg PO Q4H PRN PRN Reason: FEVER Albuterol/Ipratropium (Duoneb -) 1 amp NEB RTID [facility] Last Admin: 06/17/18 08:08 Dose: 1 amp Apixaban (Eliquis -) 2.5 mg PO BID [facility] Last Admin: 06/17/18 09:23 Dose: 2.5 mg Ascorbic Acid (Vitamin C -) 500 mg PO DAILY [facility] Last Admin: 06/17/18 09:23 Dose: 500 mg Bacitracin (Bacitracin -) 1 applic TP BID [facility] Last Admin: 06/17/18 09:24 Dose: 1 applic Bisacodyl (Dulcolax -) 5 mg PO DAILY [facility] Last Admin: 06/17/18 09:23 Dose: 5 mg Collagenase (Santyl -) 1 applic TP DAILY [facility]; Protocol Last Admin: 06/17/18 09:24 Dose: 1 applic Ferrous Sulfate (Feosol -) 325 mg PO DAILY [facility] Last Admin: 06/17/18 09:24 Dose: 325 mg Vancomycin HCl (Vancomycin (Pre-Docked)) 1,000 mg in 250 mls @ 166.667 mls/hr IVPB Q24H [facility]; Protocol Last Admin: 06/16/18 17:29 Dose: 166.667 mls/hr Ampicillin Sodium/Sulbactam (Sodium 3 gm/ Dextrose) 100 mls @ 200 mls/hr IVPB Q6H-IV [facility] Last Admin: 06/17/18 08:26 Dose: 200 mls/hr Insulin Aspart (Novolog Vial Sliding Scale -) 1 vial SQ ACHS [facility]; Protocol Last Admin: 06/17/18 11:42 Dose: 8 units Lorazepam (Ativan -) 0.5 mg PO BID [facility] Last Admin: 06/17/18 09:23 Dose: 0.5 mg Ondansetron HCl (Zofran Injection) 4 mg IVPUSH Q6H PRN PRN Reason: NAUSEA Propranolol HCl (Inderal -) 40 mg PO BID [facility] Last Admin: 06/17/18 09:23 Dose: 40 mg Risperidone (Risperdal -) 0.25 mg PO BID [facility] Last Admin: 06/17/18 09:23 Dose: 0.25 mg - Objective Vital Signs: Vital Signs Temperature 36.9 C 06/17/18 10:41 Pulse Rate 94 H 06/17/18 10:41 Respiratory Rate 18 06/17/18 10:41 Blood Pressure 120/62 06/17/18 10:41 O2 Sat by Pulse Oximetry (%) 95 06/16/18 21:00 Constitutional: Yes: Well Nourished, No Distress, Calm Cardiovascular: Yes: Regular Rate and Rhythm. No: Gallop, Murmur, Rub Respiratory: Yes: Regular, CTA Bilaterally. No: Rales, Rhonchi, Wheezes Gastrointestinal: Yes: Normal Bowel Sounds, Soft. No: Distention, Tenderness Extremities: Yes: Other (wrapped) Edema: No Labs: CBC, BMP 06/17/18 05:30 06/17/18 05:30 Problem List - Problems (1) Stage 4 skin ulcer of sacral region Code(s): L98.429 - NON-PRESSURE CHRONIC ULCER OF BACK WITH UNSPECIFIED SEVERITY (2) Decubitus ulcer of heel, bilateral, stage 3 Code(s): L89.613 - PRESSURE ULCER OF RIGHT HEEL, STAGE 3; L89.623 - PRESSURE ULCER OF LEFT HEEL, STAGE 3 (3) Transaminitis Code(s): R74.0 - NONSPEC ELEV OF LEVELS OF TRANSAMNS & LACTIC ACID DEHYDRGNSE (4) History of DVT (deep vein thrombosis) Code(s): Z86.718 - PERSONAL HISTORY OF OTHER VENOUS THROMBOSIS AND EMBOLISM (5) Bipolar 1 disorder Code(s): F31.9 - BIPOLAR DISORDER, UNSPECIFIED (6) Functional quadriplegia Code(s): R53.2 - FUNCTIONAL QUADRIPLEGIA (7) HTN (hypertension) Code(s): I10 - ESSENTIAL (PRIMARY) HYPERTENSION Qualifiers: Hypertension type: essential hypertension Qualified Code(s): I10 - Essential (primary) hypertension (8) Lactic acidosis Code(s): E87.2 - ACIDOSIS (9) Diabetes Code(s): E11.9 - TYPE 2 DIABETES MELLITUS WITHOUT COMPLICATIONS Qualifiers: Diabetes mellitus type: type 2 Diabetes mellitus superintendent container terminal insulin use: with superintendent container terminal use Diabetes mellitus complication status: with skin complications Diabetes mellitus complication detail: with foot ulcer Qualified Code(s): E11.621 - Type 2 diabetes mellitus with foot ulcer; L97.509 - Non-pressure chronic ulcer of other part of unspecified foot with unspecified severity; Z79.4 - prison (current) use of insulin (10) Cough Code(s): R05 - COUGH Assessment/Plan (1) Multiple decubitus ulceration of heels and sacrum Assessment/Plan: -appreciate vascular surgery and podiatry assistance -reviewed podiatry note -ESR/CRP very elevated -foot x-rays performed, awaiting read -may need MRI or bone scan if x-rays are negative -continue antibiotics currently -sacral decubitus debrided this admission Code(s): L89.613 - PRESSURE ULCER OF RIGHT HEEL, STAGE 3; L89.623 - PRESSURE ULCER OF LEFT HEEL, STAGE 3 (2) Transaminitis Assessment/Plan: -appreciate GI and surgery assistance -case d/w general surgery, no urgent need for intervention -agree with MRCP, to be performed today Code(s): R74.0 - NONSPEC ELEV OF LEVELS OF TRANSAMNS & LACTIC ACID DEHYDRGNSE (3) History of DVT (deep vein thrombosis) Assessment/Plan: -continue eliquis Code(s): Z86.718 - PERSONAL HISTORY OF OTHER VENOUS THROMBOSIS AND EMBOLISM (4) Bipolar 1 disorder Assessment/Plan: -continue home regimen -well controlled -not on lithium Code(s): F31.9 - BIPOLAR DISORDER, UNSPECIFIED (5) Functional quadriplegia Assessment/Plan: -PT following Code(s): R53.2 - FUNCTIONAL QUADRIPLEGIA (6) HTN (hypertension) Assessment/Plan: -continue propanolol Code(s): I10 - ESSENTIAL (PRIMARY) HYPERTENSION Qualifiers: Hypertension type: essential hypertension Qualified Code(s): I10 - Essential (primary) hypertension (7) Lactic acidosis Assessment/Plan: -resolved Code(s): E87.2 - ACIDOSIS (8) Diabetes Assessment/Plan -elevated -suspect secondary to multiple medications in D5W -add levemir 10 units bid for better control Code(s): E11.9 - TYPE 2 DIABETES MELLITUS WITHOUT COMPLICATIONS Qualifiers: Diabetes mellitus type: type 2 Diabetes mellitus superintendent container terminal insulin use: with retirement use Diabetes mellitus complication status: with skin complications Diabetes mellitus complication detail: with foot ulcer Qualified Code(s): E11.621 - Type 2 diabetes mellitus with foot ulcer; L97.509 - Non-pressure chronic ulcer of other part of unspecified foot with unspecified severity; Z79.4 - terminal gauger (current) use of insulin (9) Cough Assessment/Plan: -case d/w speech therapy -barium swallow ordered Code(s): R05 - COUGH (10) Hypernatremia -case d/w Dr Bhagat -IVF discontinued -encourage oral intake -monitor (11) AMILCAR -patterson placed -improved with IVF -encourage po intake -case d/w Dr Bhagat
--- NOTE | 2018-06-17 12:43 | PN ---
GI Progress Note Subjective: GI NOte: Radha denies pain. Na is decreasing. Dr. Bhagat's consult is appreciated. Case discussed with Dr Thomson - Objective Vital Signs: Vital Signs Temperature 98.4 F 06/17/18 10:41 Pulse Rate 94 H 06/17/18 10:41 Respiratory Rate 18 06/17/18 10:41 Blood Pressure 120/62 06/17/18 10:41 O2 Sat by Pulse Oximetry (%) 95 06/16/18 21:00 Laboratory Tests 06/16/18 06/16/18 06/17/18 07:30 21:15 05:30 Sodium 159 H 151 H 153 H Laboratory Tests 06/17/18 05:30 Total Bilirubin 0.2 Direct Bilirubin 0.1 AST 42 H ALT 60 Alkaline Phosphatase 116 Constitutional: Calm ...Auscultate: Yes: Normoactive Bowel Sounds ...Palpate: Yes: Soft, Other (nontender) Labs: CBC, BMP 06/17/18 05:30 06/17/18 05:30 Assessment/Plan Hypernatremia correcting Await MRCP to exclude CBD stones. Problem List - Problems (1) Acute hypernatremia Assessment/Plan: Hypernatremia responded to D5W IV fluids. Dr Bhagat will handle this. Code(s): E87.0 - HYPEROSMOLALITY AND HYPERNATREMIA (2) Secondary nephrogenic diabetes insipidus Code(s): N25.1 - NEPHROGENIC DIABETES INSIPIDUS (3) Transaminitis Code(s): R74.0 - NONSPEC ELEV OF LEVELS OF TRANSAMNS & LACTIC ACID DEHYDRGNSE (4) Gallstones Code(s): K80.20 - CALCULUS OF GALLBLADDER W/O CHOLECYSTITIS W/O OBSTRUCTION (5) Dilated bile duct Code(s): K83.8 - OTHER SPECIFIED DISEASES OF BILIARY TRACT (6) Anemia Code(s): D64.9 - ANEMIA, UNSPECIFIED Qualifiers: Chronic kidney disease stage: unspecified stage (7) Bipolar 1 disorder Code(s): F31.9 - BIPOLAR DISORDER, UNSPECIFIED (8) Diabetes Code(s): E11.9 - TYPE 2 DIABETES MELLITUS WITHOUT COMPLICATIONS Qualifiers: Diabetes mellitus type: type 2 Diabetes mellitus parts counterman insulin use: with parts counterman use Diabetes mellitus complication status: with skin complications Diabetes mellitus complication detail: with foot ulcer Qualified Code(s): E11.621 - Type 2 diabetes mellitus with foot ulcer; L97.509 - Non-pressure chronic ulcer of other part of unspecified foot with unspecified severity; Z79.4 - nursing home (current) use of insulin (9) Constipation Code(s): K59.00 - CONSTIPATION, UNSPECIFIED
--- NOTE | 2018-06-17 12:53 | PN ---
Progress Note, Physician History of Present Illness: stable doing well abd pain better gi note noted - Current Medication List Current Medications: Active Medications Acetaminophen (Tylenol -) 650 mg PO Q4H PRN PRN Reason: FEVER Albuterol/Ipratropium (Duoneb -) 1 amp NEB RTID [facility] Last Admin: 06/17/18 08:08 Dose: 1 amp Apixaban (Eliquis -) 2.5 mg PO BID [facility] Last Admin: 06/17/18 09:23 Dose: 2.5 mg Ascorbic Acid (Vitamin C -) 500 mg PO DAILY [facility] Last Admin: 06/17/18 09:23 Dose: 500 mg Bacitracin (Bacitracin -) 1 applic TP BID [facility] Last Admin: 06/17/18 09:24 Dose: 1 applic Bisacodyl (Dulcolax -) 5 mg PO DAILY [facility] Last Admin: 06/17/18 09:23 Dose: 5 mg Collagenase (Santyl -) 1 applic TP DAILY [facility]; Protocol Last Admin: 06/17/18 09:24 Dose: 1 applic Ferrous Sulfate (Feosol -) 325 mg PO DAILY [facility] Last Admin: 06/17/18 09:24 Dose: 325 mg Vancomycin HCl (Vancomycin (Pre-Docked)) 1,000 mg in 250 mls @ 166.667 mls/hr IVPB Q24H [facility]; Protocol Last Admin: 06/16/18 17:29 Dose: 166.667 mls/hr Ampicillin Sodium/Sulbactam (Sodium 3 gm/ Dextrose) 100 mls @ 200 mls/hr IVPB Q6H-IV [facility] Last Admin: 06/17/18 08:26 Dose: 200 mls/hr Insulin Aspart (Novolog Vial Sliding Scale -) 1 vial SQ ACHS [facility]; Protocol Last Admin: 06/17/18 11:42 Dose: 8 units Lorazepam (Ativan -) 0.5 mg PO BID [facility] Last Admin: 06/17/18 09:23 Dose: 0.5 mg Ondansetron HCl (Zofran Injection) 4 mg IVPUSH Q6H PRN PRN Reason: NAUSEA Propranolol HCl (Inderal -) 40 mg PO BID [facility] Last Admin: 06/17/18 09:23 Dose: 40 mg Risperidone (Risperdal -) 0.25 mg PO BID [facility] Last Admin: 06/17/18 09:23 Dose: 0.25 mg - Objective Vital Signs: Vital Signs Temperature 98.4 F 06/17/18 10:41 Pulse Rate 94 H 06/17/18 10:41 Respiratory Rate 18 06/17/18 10:41 Blood Pressure 120/62 06/17/18 10:41 O2 Sat by Pulse Oximetry (%) 95 06/16/18 21:00 Constitutional: Yes: No Distress, Calm Cardiovascular: Yes: Regular Rate and Rhythm Respiratory: Yes: Regular, CTA Bilaterally Gastrointestinal: Yes: Normal Bowel Sounds, Soft Extremities: Yes: Other Wound/Incision: Yes: Dressing Dry and Intact Neurological: Yes: Alert, Oriented Psychiatric: Yes: Alert, Oriented Labs: CBC, BMP 06/17/18 05:30 06/17/18 05:30 Assessment/Plan Problem List - Problems (1) Decubitus ulcer of heel, bilateral, stage 3 Code(s): L89.613 - PRESSURE ULCER OF RIGHT HEEL, STAGE 3; L89.623 - PRESSURE ULCER OF LEFT HEEL, STAGE 3 (2) Transaminitis Code(s): R74.0 - NONSPEC ELEV OF LEVELS OF TRANSAMNS & LACTIC ACID DEHYDRGNSE (3) History of DVT (deep vein thrombosis) Code(s): Z86.718 - PERSONAL HISTORY OF OTHER VENOUS THROMBOSIS AND EMBOLISM (4) Bipolar 1 disorder Code(s): F31.9 - BIPOLAR DISORDER, UNSPECIFIED (5) Functional quadriplegia Code(s): R53.2 - FUNCTIONAL QUADRIPLEGIA (6) HTN (hypertension) Code(s): I10 - ESSENTIAL (PRIMARY) HYPERTENSION Qualifiers: Hypertension type: essential hypertension Qualified Code(s): I10 - Essential (primary) hypertension (7) Lactic acidosis Code(s): E87.2 - ACIDOSIS (8) Diabetes Code(s): E11.9 - TYPE 2 DIABETES MELLITUS WITHOUT COMPLICATIONS Qualifiers: Diabetes mellitus type: type 2 Diabetes mellitus half-way insulin use: with half-way use Diabetes mellitus complication status: with skin complications Diabetes mellitus complication detail: with foot ulcer Qualified Code(s): E11.621 - Type 2 diabetes mellitus with foot ulcer; L97.509 - Non-pressure chronic ulcer of other part of unspecified foot with unspecified severity; Z79.4 - intermediate frame tender (current) use of insulin (9) Cough Code(s): R05 - COUGH awaiting mrcp to see for cbd stones patient stable plan continue current abx patient eating off of iv fluids rest continue current mgmt await for final plans
[2018-06-17 14:45] LABS: URINE APPEARANCE CLOUDY; URINE BILIRUBIN NEGATIVE (<2.0 mg/dL); URINE COLOR LTYELLOW; URINE GLUCOSE (UA) 3+ (NEGATIVE); URINE KETONE NEGATIVE (NEGATIVE); URINE LEUK ESTERASE 3+ (NEGATIVE); URINE NITRITE NEGATIVE (NEGATIVE); URINE PROTEIN NEGATIVE (NEGATIVE); URINE UROBILINOGEN NEGATIVE mg/dL (0.2-1.0)
[2018-06-17 14:47] LABS: URINE MUCUS RARE; YEAST MANY
[2018-06-17] MEDS ORDERED: INSULIN (NOVOLOG) ASPART 100 UNITS/ML 10ML VIAL ONE ×2 (15:41→20:39)
[2018-06-17] MEDS: VANCOMYCIN 1 GRAM (PRE-DOCKED) 1,000 MG/250 ML BAG IVPB SCH (16:39)
[2018-06-17] MEDS: INSULIN (LEVEMIR) 100 UNITS/ML UNITS SQ SCH (21:29)
[2018-06-18] MEDS: AMPICILLIN NA/SULBACTAM NA 3 GM in DEXTROSE 5%-WATER 100 ML IVPB SCH ×4 (02:45→21:33)
[2018-06-18] MEDS ORDERED: INSULIN (NOVOLOG) ASPART 100 UNITS/ML 10ML VIAL ONE ×2 (05:25→17:20)
[2018-06-18] MEDS ORDERED: INSULIN (LEVEMIR) 100 UNITS/ML UNITS SQ ONE (05:25)
[2018-06-18] MEDS: INSULIN SLIDING SCALE (NOVOLOG) 1 VIAL SQ SCH ×4 (06:46→21:36)
[2018-06-18] MEDS: INSULIN (LEVEMIR) 100 UNITS/ML UNITS SQ SCH ×2 (06:46→21:37)
[2018-06-18] MEDS: ALBUTEROL SO4 2.5/IPRATROPIUM 0.5 INH SOL 3 ML VIAL.NEB. NEB SCH ×3 (08:02→20:56)
[2018-06-18 08:51] LABS: BASO % 0.5 % (0-2.0); HEMATOCRIT 23.8 % (32.4-45.2); HEMOGLOBIN 7.2 GM/dL (10.7-15.3); LYMPH % 25.5 % (8-40); MCHC 30.4 g/dl (32.0-36.0); MEAN CELL VOLUME 89.1 fl (80-96); MEAN PLT VOLUME 8.2 fl (7.5-11.1); MONO % 6.5 % (3.8-10.2); NEUT % 64.5 % (42.8-82.8); PLATELET COUNT 367 K/MM3 (134-434); RBC 2.67 M/mm3 (3.60-5.2); RDW 18.3 % (11.6-15.6); WHITE BLOOD COUNT 11.5 K/mm3 (4.0-10.0)
[2018-06-18 09:06] LABS: ANION GAP 7 MMOL/L (8-16); BLOOD UREA NITROGEN 15 mg/dL (7-18); CALCIUM 8.3 mg/dL (8.5-10.1); CHLORIDE 120 mmol/L (98-107); CO2 26 mmol/L (21-32); CREATININE 1.3 mg/dL (0.55-1.3); GLUCOSE,RANDOM 51 mg/dL (74-106); MAGNESIUM 2.2 mg/dL (1.8-2.4); PHOSPHOROUS 3.4 mg/dL (2.5-4.9); POTASSIUM 3.6 mmol/L (3.5-5.1); SODIUM 153 mmol/L (136-145)
[2018-06-18] MEDS ORDERED: PT OWN MED DRAWER 7, Y5N ONE ×5 (09:30→21:07)
[2018-06-18] MEDS: LORazepam 0.5 MG TABLET PO SCH ×2 (09:35→21:35)
[2018-06-18] MEDS: ASCORBIC ACID 500 MG TABLET (FP) PO SCH (09:35)
[2018-06-18] MEDS: FERROUS SO4 325 MG TABLET (FP) PO SCH (09:35)
[2018-06-18] MEDS: APIXABAN 2.5 MG TABLET PO SCH ×2 (09:35→21:34)
[2018-06-18] MEDS: risperiDONE 0.25 MG TABLET (FP) PO SCH ×2 (09:35→21:34)
[2018-06-18] MEDS: BISACODYL 5 MG TABLET.DR (FP) PO SCH (09:35)
[2018-06-18] MEDS: COLLAGENASE CLOSTRIDIUM HIST. 30 GRAMS TUBE TP SCH (09:36)
[2018-06-18] MEDS: BACITRACIN 15 GM TUBE TOPICAL OINTMENT TP SCH ×2 (09:36→21:35)
--- NOTE | 2018-06-18 11:53 | PN ---
Progress Note, Physician Chief Complaint: Ms Estrada denies cp, sob, n/v. She says she is still thirsty. - Current Medication List Current Medications: Active Medications Acetaminophen (Tylenol -) 650 mg PO Q4H PRN PRN Reason: FEVER Albuterol/Ipratropium (Duoneb -) 1 amp NEB RTID [facility] Last Admin: 06/18/18 08:02 Dose: Not Given Apixaban (Eliquis -) 2.5 mg PO BID [facility] Last Admin: 06/18/18 09:35 Dose: 2.5 mg Ascorbic Acid (Vitamin C -) 500 mg PO DAILY [facility] Last Admin: 06/18/18 09:35 Dose: 500 mg Bacitracin (Bacitracin -) 1 applic TP BID [facility] Last Admin: 06/18/18 09:36 Dose: 1 applic Bisacodyl (Dulcolax -) 5 mg PO DAILY [facility] Last Admin: 06/18/18 09:35 Dose: 5 mg Collagenase (Santyl -) 1 applic TP DAILY [facility]; Protocol Last Admin: 06/18/18 09:36 Dose: 1 applic Ferrous Sulfate (Feosol -) 325 mg PO DAILY [facility] Last Admin: 06/18/18 09:35 Dose: 325 mg Vancomycin HCl (Vancomycin (Pre-Docked)) 1,000 mg in 250 mls @ 166.667 mls/hr IVPB Q24H [facility]; Protocol Last Admin: 06/17/18 16:39 Dose: 166.667 mls/hr Ampicillin Sodium/Sulbactam (Sodium 3 gm/ Dextrose) 100 mls @ 200 mls/hr IVPB Q6H-IV [facility] Last Admin: 06/18/18 09:34 Dose: 200 mls/hr Insulin Aspart (Novolog Vial Sliding Scale -) 1 vial SQ ACHS [facility]; Protocol Last Admin: 06/18/18 06:46 Dose: Not Given Insulin Detemir (Levemir Vial) 10 units SQ BID@0700,2200 [facility] Last Admin: 06/18/18 06:46 Dose: Not Given Lorazepam (Ativan -) 0.5 mg PO BID [facility] Last Admin: 06/18/18 09:35 Dose: 0.5 mg Ondansetron HCl (Zofran Injection) 4 mg IVPUSH Q6H PRN PRN Reason: NAUSEA Propranolol HCl (Inderal -) 40 mg PO BID [facility] Last Admin: 06/18/18 09:35 Dose: 40 mg Risperidone (Risperdal -) 0.25 mg PO BID [facility] Last Admin: 06/18/18 09:35 Dose: 0.25 mg - Objective Vital Signs: Vital Signs Temperature 36.3 C L 06/18/18 10:00 Pulse Rate 80 06/18/18 10:00 Respiratory Rate 20 06/18/18 10:00 Blood Pressure 124/53 L 06/18/18 10:00 O2 Sat by Pulse Oximetry (%) 93 L 06/17/18 21:00 Constitutional: Yes: Well Nourished, No Distress, Calm Cardiovascular: Yes: Regular Rate and Rhythm. No: Gallop, Murmur, Rub Respiratory: Yes: Regular, CTA Bilaterally. No: Rales, Rhonchi, Wheezes Gastrointestinal: Yes: Normal Bowel Sounds, Soft. No: Distention, Tenderness Extremities: Yes: Other (wrapped) Edema: No Labs: CBC, BMP 06/18/18 07:00 06/18/18 07:00 Problem List - Problems (1) Stage 4 skin ulcer of sacral region Code(s): L98.429 - NON-PRESSURE CHRONIC ULCER OF BACK WITH UNSPECIFIED SEVERITY (2) Decubitus ulcer of heel, bilateral, stage 3 Code(s): L89.613 - PRESSURE ULCER OF RIGHT HEEL, STAGE 3; L89.623 - PRESSURE ULCER OF LEFT HEEL, STAGE 3 (3) Transaminitis Code(s): R74.0 - NONSPEC ELEV OF LEVELS OF TRANSAMNS & LACTIC ACID DEHYDRGNSE (4) History of DVT (deep vein thrombosis) Code(s): Z86.718 - PERSONAL HISTORY OF OTHER VENOUS THROMBOSIS AND EMBOLISM (5) Bipolar 1 disorder Code(s): F31.9 - BIPOLAR DISORDER, UNSPECIFIED (6) Functional quadriplegia Code(s): R53.2 - FUNCTIONAL QUADRIPLEGIA (7) HTN (hypertension) Code(s): I10 - ESSENTIAL (PRIMARY) HYPERTENSION Qualifiers: Hypertension type: essential hypertension Qualified Code(s): I10 - Essential (primary) hypertension (8) Lactic acidosis Code(s): E87.2 - ACIDOSIS (9) Diabetes Code(s): E11.9 - TYPE 2 DIABETES MELLITUS WITHOUT COMPLICATIONS Qualifiers: Diabetes mellitus type: type 2 Diabetes mellitus mental health consultant insulin use: with mental health consultant use Diabetes mellitus complication status: with skin complications Diabetes mellitus complication detail: with foot ulcer Qualified Code(s): E11.621 - Type 2 diabetes mellitus with foot ulcer; L97.509 - Non-pressure chronic ulcer of other part of unspecified foot with unspecified severity; Z79.4 - acid mixer (current) use of insulin (10) Cough Code(s): R05 - COUGH Assessment/Plan (1) Multiple decubitus ulceration of heels and sacrum Assessment/Plan: -bilateral foot x-ray negative -will order MRI of the feet -continue IV antibiotics Code(s): L89.613 - PRESSURE ULCER OF RIGHT HEEL, STAGE 3; L89.623 - PRESSURE ULCER OF LEFT HEEL, STAGE 3 (2) Transaminitis Assessment/Plan: -MRCP reviewed -GI following Code(s): R74.0 - NONSPEC ELEV OF LEVELS OF TRANSAMNS & LACTIC ACID DEHYDRGNSE (3) History of DVT (deep vein thrombosis) Assessment/Plan: -continue eliquis Code(s): Z86.718 - PERSONAL HISTORY OF OTHER VENOUS THROMBOSIS AND EMBOLISM (4) Bipolar 1 disorder Assessment/Plan: -continue home regimen -well controlled -not on lithium Code(s): F31.9 - BIPOLAR DISORDER, UNSPECIFIED (5) Functional quadriplegia Assessment/Plan: -PT following Code(s): R53.2 - FUNCTIONAL QUADRIPLEGIA (6) HTN (hypertension) Assessment/Plan: -continue propanolol Code(s): I10 - ESSENTIAL (PRIMARY) HYPERTENSION Qualifiers: Hypertension type: essential hypertension Qualified Code(s): I10 - Essential (primary) hypertension (7) Lactic acidosis Assessment/Plan: -resolved Code(s): E87.2 - ACIDOSIS (8) Diabetes Assessment/Plan -continue levemir 10 units bid -may need to change it to am only dosing if continues to have hypoglycemia in the am Code(s): E11.9 - TYPE 2 DIABETES MELLITUS WITHOUT COMPLICATIONS Qualifiers: Diabetes mellitus type: type 2 Diabetes mellitus mental health consultant insulin use: with custodial use Diabetes mellitus complication status: with skin complications Diabetes mellitus complication detail: with foot ulcer Qualified Code(s): E11.621 - Type 2 diabetes mellitus with foot ulcer; L97.509 - Non-pressure chronic ulcer of other part of unspecified foot with unspecified severity; Z79.4 - acid mixer (current) use of insulin (9) Cough Assessment/Plan: -barium swallow reviewed -diet per speech therapy Code(s): R05 - COUGH (10) Hypernatremia -case d/w Dr Bhagat -? if osmotic secondary to hyperglycemia -glucose control -Dr Bhagat to see today and order fluids if needed (11) AMILCAR -resolved
--- NOTE | 2018-06-18 13:58 | PN ---
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 MBS performed with no aspiration demonstrated on thin liquid. Reviewed with staff. Trial puree/thin liquid/ ensure plus
--- NOTE | 2018-06-18 15:15 | PN ---
Progress Note, Physician History of Present Illness: Pt seen and examined at bedside. She is awake and alert. She denies shortness of breath. - Current Medication List Current Medications: Active Medications Acetaminophen (Tylenol -) 650 mg PO Q4H PRN PRN Reason: FEVER Albuterol/Ipratropium (Duoneb -) 1 amp NEB RTID [facility] Last Admin: 06/18/18 08:02 Dose: Not Given Apixaban (Eliquis -) 2.5 mg PO BID [facility] Last Admin: 06/18/18 09:35 Dose: 2.5 mg Ascorbic Acid (Vitamin C -) 500 mg PO DAILY [facility] Last Admin: 06/18/18 09:35 Dose: 500 mg Bacitracin (Bacitracin -) 1 applic TP BID [facility] Last Admin: 06/18/18 09:36 Dose: 1 applic Bisacodyl (Dulcolax -) 5 mg PO DAILY [facility] Last Admin: 06/18/18 09:35 Dose: 5 mg Collagenase (Santyl -) 1 applic TP DAILY [facility]; Protocol Last Admin: 06/18/18 09:36 Dose: 1 applic Ferrous Sulfate (Feosol -) 325 mg PO DAILY [facility] Last Admin: 06/18/18 09:35 Dose: 325 mg Vancomycin HCl (Vancomycin (Pre-Docked)) 1,000 mg in 250 mls @ 166.667 mls/hr IVPB Q24H [facility]; Protocol Last Admin: 06/17/18 16:39 Dose: 166.667 mls/hr Ampicillin Sodium/Sulbactam (Sodium 3 gm/ Dextrose) 100 mls @ 200 mls/hr IVPB Q6H-IV [facility] Last Admin: 06/18/18 09:34 Dose: 200 mls/hr Insulin Aspart (Novolog Vial Sliding Scale -) 1 vial SQ ACHS [facility]; Protocol Last Admin: 06/18/18 12:16 Dose: 6 units Insulin Detemir (Levemir Vial) 10 units SQ BID@0700,2200 [facility] Last Admin: 06/18/18 06:46 Dose: Not Given Lorazepam (Ativan -) 0.5 mg PO BID [facility] Last Admin: 06/18/18 09:35 Dose: 0.5 mg Ondansetron HCl (Zofran Injection) 4 mg IVPUSH Q6H PRN PRN Reason: NAUSEA Propranolol HCl (Inderal -) 40 mg PO BID [facility] Last Admin: 06/18/18 09:35 Dose: 40 mg Risperidone (Risperdal -) 0.25 mg PO BID [facility] Last Admin: 06/18/18 09:35 Dose: 0.25 mg - Objective Vital Signs: Vital Signs Temperature 97.4 F L 06/18/18 10:00 Pulse Rate 80 06/18/18 10:00 Respiratory Rate 20 06/18/18 10:00 Blood Pressure 124/53 L 06/18/18 10:00 O2 Sat by Pulse Oximetry (%) 93 L 06/17/18 21:00 Constitutional: Yes: Calm Eyes: Yes: Conjunctiva Clear HENT: Yes: Atraumatic Cardiovascular: Yes: S1, S2 Respiratory: Yes: CTA Bilaterally Gastrointestinal: Yes: Soft Genitourinary: Yes: Tejeda Present Musculoskeletal: Yes: Muscle Weakness Edema: No Neurological: Yes: Pre-Existing Deficit Labs: CBC, BMP 06/18/18 07:00 06/18/18 07:00 Problem List - Problems (1) Acute hypernatremia Code(s): E87.0 - HYPEROSMOLALITY AND HYPERNATREMIA (2) HTN (hypertension) Code(s): I10 - ESSENTIAL (PRIMARY) HYPERTENSION Qualifiers: Hypertension type: essential hypertension Qualified Code(s): I10 - Essential (primary) hypertension Assessment/Plan Current Medications Generic Name Dose Route Start Last Admin Trade Name Freq PRN Reason Stop Dose Admin Acetaminophen 650 mg 06/16/18 00:21 Tylenol - PO Q4H PRN FEVER Albuterol/Ipratropium 1 amp 06/16/18 08:00 06/18/18 08:02 Duoneb - NEB Not Given RTID [facility] Apixaban 2.5 mg 06/16/18 10:00 06/18/18 09:35 Eliquis - PO 2.5 mg BID [facility] Administration Ascorbic Acid 500 mg 06/16/18 10:00 06/18/18 09:35 Vitamin C - PO 500 mg DAILY [facility] Administration Bacitracin 1 applic 06/16/18 10:00 06/18/18 09:36 Bacitracin - TP 1 applic BID [facility] Administration Bisacodyl 5 mg 06/16/18 10:00 06/18/18 09:35 Dulcolax - PO 5 mg DAILY [facility] Administration Collagenase 1 applic 06/16/18 10:00 06/18/18 09:36 Santyl - TP 1 applic DAILY [facility] Administration Protocol Ferrous Sulfate 325 mg 06/16/18 10:00 06/18/18 09:35 Feosol - PO 325 mg DAILY [facility] Administration Vancomycin HCl 1,000 mg in 250 mls @ 166.667 mls/hr 06/16/18 16:00 06/17/18 16:39 Vancomycin (Pre-Docked) IVPB 166.667 mls/hr Q24H [facility] Administration Protocol Ampicillin Sodium/Sulbactam 100 mls @ 200 mls/hr 06/16/18 21:00 06/18/18 09: 34 Sodium 3 gm/ Dextrose IVPB 200 mls/hr Q6H-IV [facility] Administration Insulin Aspart 1 vial 06/16/18 07:00 06/18/18 12:16 Novolog Vial Sliding Scale - SQ 6 units ACHS [facility] Administration Protocol Insulin Detemir 10 units 06/17/18 22:00 06/18/18 06:46 Levemir Vial SQ Not Given BID@0700,2200 [facility] Lorazepam 0.5 mg 06/16/18 10:00 06/18/18 09:35 Ativan - PO 0.5 mg BID [facility] Administration Ondansetron HCl 4 mg 06/16/18 00:21 Zofran Injection IVPUSH Q6H PRN NAUSEA Propranolol HCl 40 mg 06/16/18 10:00 06/18/18 09:35 Inderal - PO 40 mg BID [facility] Administration Risperidone 0.25 mg 06/16/18 10:00 06/18/18 09:35 Risperdal - PO 0.25 mg BID [facility] Administration Laboratory Tests 06/17/18 06/17/18 13:00 13:00 Urine Glucose (UA) 3+ H Urine Osmolality 128 L Impression 1. Hypernatremia 2. bipolar 3. DM 4. HTN 5. DVT 6. glucosuria Plan - fluids were stopped last night - can continue with free water intake - will need better glucose control - urine osm is low - pt does have history of lithium use. I spoke to her daughter, it was stopped in November of this year as she developed renal failure. - will give a dose of nsaid today - repeat labs in am - monitor urine output - pt also has 3 plus glucose in the urine which can contribute to an osmotic diuresis - monitor sodium - monitor for polyuria Dr Bhagat
--- NOTE | 2018-06-18 15:54 | PN ---
Progress Note, Physician History of Present Illness: patient stable no issues - Current Medication List Current Medications: Active Medications Acetaminophen (Tylenol -) 650 mg PO Q4H PRN PRN Reason: FEVER Albuterol/Ipratropium (Duoneb -) [address] [facility] Last Admin: 06/18/18 14:11 Dose: 1 amp Apixaban (Eliquis -) 2.[address] [facility] Last Admin: 06/18/18 09:35 Dose: 2.5 mg Ascorbic Acid (Vitamin C -) [address] [facility] Last Admin: 06/18/18 09:35 Dose: 500 mg Bacitracin (Bacitracin -) [address] [facility] Last Admin: 06/18/18 09:36 Dose: 1 applic Bisacodyl (Dulcolax -) [address] [facility] Last Admin: 06/18/18 09:35 Dose: 5 mg Collagenase (Santyl -) [address] [facility]; Protocol Last Admin: 06/18/18 09:36 Dose: 1 applic Ferrous Sulfate (Feosol -) [address] [facility] Last Admin: 06/18/18 09:35 Dose: 325 mg Vancomycin HCl (Vancomycin (Pre-Docked)) 1,000 mg in 250 mls @ 166.667 mls/hr IVPB Q24H [facility]; Protocol Last Admin: 06/17/18 16:39 Dose: 166.667 mls/hr Ampicillin Sodium/Sulbactam (Sodium 3 gm/ Dextrose) 100 mls @ 200 mls/hr IVPB Q6H-IV [facility] Last Admin: 06/18/18 15:43 Dose: 200 mls/hr Indomethacin (Indocin -) [address] [facility] Stop: 06/19/18 10:01 Insulin Aspart (Novolog Vial Sliding Scale -) [address] [facility]; Protocol Last Admin: 06/18/18 12:16 Dose: 6 units Insulin Detemir (Levemir Vial) 10 units SQ BID@0700,2200 [facility] Last Admin: 06/18/18 06:46 Dose: Not Given Lorazepam (Ativan -) 0.[address] [facility] Last Admin: 06/18/18 09:35 Dose: 0.5 mg Ondansetron HCl (Zofran Injection) 4 mg IVPUSH Q6H PRN PRN Reason: NAUSEA Propranolol HCl (Inderal -) [address] [facility] Last Admin: 06/18/18 09:35 Dose: 40 mg Risperidone (Risperdal -) 0.[address] [facility] Last Admin: 06/18/18 09:35 Dose: 0.25 mg - Objective Vital Signs: Vital Signs Temperature 97.4 F L 06/18/18 10:00 Pulse Rate 80 06/18/18 10:00 Respiratory Rate 20 06/18/18 10:00 Blood Pressure 124/53 L 06/18/18 10:00 O2 Sat by Pulse Oximetry (%) 93 L 06/17/18 21:00 Constitutional: Yes: No Distress, Calm Cardiovascular: Yes: Regular Rate and Rhythm Respiratory: Yes: Regular, CTA Bilaterally Gastrointestinal: Yes: Normal Bowel Sounds, Soft Musculoskeletal: Yes: WNL Extremities: Yes: Other Neurological: Yes: Alert Psychiatric: Yes: Alert Labs: CBC, BMP 06/18/18 07:00 06/18/18 07:00 Assessment/Plan Problem List - Problems (1) Decubitus ulcer of heel, bilateral, stage 3 Code(s): L89.613 - PRESSURE ULCER OF RIGHT HEEL, STAGE 3; L89.623 - PRESSURE ULCER OF LEFT HEEL, STAGE 3 (2) Transaminitis Code(s): R74.0 - NONSPEC ELEV OF LEVELS OF TRANSAMNS & LACTIC ACID DEHYDRGNSE (3) History of DVT (deep vein thrombosis) Code(s): Z86.718 - PERSONAL HISTORY OF OTHER VENOUS THROMBOSIS AND EMBOLISM (4) Bipolar 1 disorder Code(s): F31.9 - BIPOLAR DISORDER, UNSPECIFIED (5) Functional quadriplegia Code(s): R53.2 - FUNCTIONAL QUADRIPLEGIA (6) HTN (hypertension) Code(s): I10 - ESSENTIAL (PRIMARY) HYPERTENSION Qualifiers: Hypertension type: essential hypertension Qualified Code(s): I10 - Essential (primary) hypertension (7) Lactic acidosis Code(s): E87.2 - ACIDOSIS (8) Diabetes Code(s): E11.9 - TYPE 2 DIABETES MELLITUS WITHOUT COMPLICATIONS Qualifiers: Diabetes mellitus type: type 2 Diabetes mellitus exterminator helper insulin use: with [facility] use Diabetes mellitus complication status: with skin complications Diabetes mellitus complication detail: with foot ulcer Qualified Code(s): E11.621 - Type 2 diabetes mellitus with foot ulcer; L97.509 - Non-pressure chronic ulcer of other part of unspecified foot with unspecified severity; Z79.4 - termite treater (current) use of insulin (9) Cough Code(s): R05 - COUGH patient with multiple organisms now also growing mrsa plan continue abx close watch rest as per the team wound care will check vanco level
[2018-06-18] MEDS: INDOMETHACIN 25 MG CAPSULE PO SCH ×2 (17:05→21:34)
[2018-06-18] MEDS: VANCOMYCIN 1 GRAM (PRE-DOCKED) 1,000 MG/250 ML BAG IVPB SCH (19:22)
[2018-06-19] MEDS: AMPICILLIN NA/SULBACTAM NA 3 GM in DEXTROSE 5%-WATER 100 ML IVPB SCH ×4 (02:57→21:37)
[2018-06-19] MEDS: INSULIN SLIDING SCALE (NOVOLOG) 1 VIAL SQ SCH ×4 (06:23→21:35)
[2018-06-19] MEDS: INSULIN (LEVEMIR) 100 UNITS/ML UNITS SQ SCH ×2 (06:24→21:36)
[2018-06-19 07:36] LABS: BASO % 0.6 % (0-2.0); HEMOGLOBIN 7.5 GM/dL (10.7-15.3); LYMPH % 26.1 % (8-40); MCH 27.6 pg (25.7-33.7); MCHC 31.1 g/dl (32.0-36.0); MEAN CELL VOLUME 88.8 fl (80-96); MEAN PLT VOLUME 8.5 fl (7.5-11.1); MONO % 5.5 % (3.8-10.2); NEUT % 62.8 % (42.8-82.8); PLATELET COUNT 334 K/MM3 (134-434); RDW 18.4 % (11.6-15.6); WHITE BLOOD COUNT 8.7 K/mm3 (4.0-10.0)
[2018-06-19 08:00] LABS: ANION GAP 8 MMOL/L (8-16); BLOOD UREA NITROGEN 17 mg/dL (7-18); CALCIUM 7.9 mg/dL (8.5-10.1); CHLORIDE 113 mmol/L (98-107); CO2 26 mmol/L (21-32); CREATININE 1.4 mg/dL (0.55-1.3); GLUCOSE,RANDOM 137 mg/dL (74-106); MAGNESIUM 2.3 mg/dL (1.8-2.4); PHOSPHOROUS 4.6 mg/dL (2.5-4.9); POTASSIUM 4.3 mmol/L (3.5-5.1); SODIUM 147 mmol/L (136-145)
[2018-06-19] MEDS: ALBUTEROL SO4 2.5/IPRATROPIUM 0.5 INH SOL 3 ML VIAL.NEB. NEB SCH ×3 (08:52→20:17)
[2018-06-19] MEDS ORDERED: PT OWN MED DRAWER 7, Y5N ONE ×2 (09:54→15:30)
[2018-06-19] MEDS: ASCORBIC ACID 500 MG TABLET (FP) PO SCH (09:57)
[2018-06-19] MEDS: LORazepam 0.5 MG TABLET PO SCH ×2 (09:57→21:35)
[2018-06-19] MEDS: INDOMETHACIN 25 MG CAPSULE PO SCH (09:58)
[2018-06-19] MEDS: risperiDONE 0.25 MG TABLET (FP) PO SCH ×2 (09:58→21:35)
[2018-06-19] MEDS: APIXABAN 2.5 MG TABLET PO SCH ×2 (09:58→21:35)
[2018-06-19] MEDS: BISACODYL 5 MG TABLET.DR (FP) PO SCH (09:58)
[2018-06-19] MEDS: FERROUS SO4 325 MG TABLET (FP) PO SCH (09:59)
[2018-06-19] MEDS: BACITRACIN 15 GM TUBE TOPICAL OINTMENT TP SCH ×2 (09:59→21:37)
[2018-06-19] MEDS: COLLAGENASE CLOSTRIDIUM HIST. 30 GRAMS TUBE TP SCH (10:00)
--- NOTE | 2018-06-19 11:28 | PN ---
Progress Note, Physician History of Present Illness: Pt seen and examined at bedside. She is awake and alert. She denies shortness of breath. She says that she no longer feels thirsty. - Current Medication List Current Medications: Active Medications Acetaminophen (Tylenol -) 650 mg PO Q4H PRN PRN Reason: FEVER Last Admin: 06/18/18 17:43 Dose: 650 mg Albuterol/Ipratropium (Duoneb -) 1 amp NEB RTID [facility] Last Admin: 06/19/18 08:52 Dose: 1 amp Apixaban (Eliquis -) 2.5 mg PO BID [facility] Last Admin: 06/19/18 09:58 Dose: 2.5 mg Ascorbic Acid (Vitamin C -) 500 mg PO DAILY [facility] Last Admin: 06/19/18 09:57 Dose: 500 mg Bacitracin (Bacitracin -) 1 applic TP BID [facility] Last Admin: 06/19/18 09:59 Dose: 1 applic Bisacodyl (Dulcolax -) 5 mg PO DAILY [facility] Last Admin: 06/19/18 09:58 Dose: 5 mg Collagenase (Santyl -) 1 applic TP DAILY [facility]; Protocol Last Admin: 06/19/18 10:00 Dose: 1 applic Ferrous Sulfate (Feosol -) 325 mg PO DAILY [facility] Last Admin: 06/19/18 09:59 Dose: 325 mg Vancomycin HCl (Vancomycin (Pre-Docked)) 1,000 mg in 250 mls @ 166.667 mls/hr IVPB Q24H [facility]; Protocol Last Admin: 06/18/18 19:22 Dose: Not Given Ampicillin Sodium/Sulbactam (Sodium 3 gm/ Dextrose) 100 mls @ 200 mls/hr IVPB Q6H-IV [facility] Last Admin: 06/19/18 09:57 Dose: 200 mls/hr Insulin Aspart (Novolog Vial Sliding Scale -) 1 vial SQ ACHS [facility]; Protocol Last Admin: 06/19/18 06:23 Dose: 2 units Insulin Detemir (Levemir Vial) 10 units SQ BID@0700,2200 [facility] Last Admin: 06/19/18 06:24 Dose: 10 units Lorazepam (Ativan -) 0.5 mg PO BID [facility] Last Admin: 06/19/18 09:57 Dose: 0.5 mg Ondansetron HCl (Zofran Injection) 4 mg IVPUSH Q6H PRN PRN Reason: NAUSEA Propranolol HCl (Inderal -) 40 mg PO BID [facility] Last Admin: 06/19/18 09:58 Dose: 40 mg Risperidone (Risperdal -) 0.25 mg PO BID [facility] Last Admin: 06/19/18 09:58 Dose: 0.25 mg - Objective Vital Signs: Vital Signs Temperature 98.9 F 06/19/18 10:00 Pulse Rate 105 H 06/19/18 10:00 Respiratory Rate 22 H 06/19/18 10:00 Blood Pressure 119/55 L 06/19/18 10:00 O2 Sat by Pulse Oximetry (%) 93 L 06/17/18 21:00 Constitutional: Yes: Calm Eyes: Yes: Conjunctiva Clear HENT: Yes: Atraumatic Cardiovascular: Yes: S1, S2 Respiratory: Yes: CTA Bilaterally Gastrointestinal: Yes: Normal Bowel Sounds, Soft Genitourinary: Yes: Tejeda Present Musculoskeletal: Yes: WNL Edema: No Neurological: Yes: Oriented Psychiatric: Yes: Oriented Labs: CBC, BMP 06/19/18 06:30 06/19/18 06:30 Problem List - Problems (1) Acute hypernatremia Code(s): E87.0 - HYPEROSMOLALITY AND HYPERNATREMIA (2) HTN (hypertension) Code(s): I10 - ESSENTIAL (PRIMARY) HYPERTENSION Qualifiers: Hypertension type: essential hypertension Qualified Code(s): I10 - Essential (primary) hypertension Assessment/Plan Current Medications Generic Name Dose Route Start Last Admin Trade Name Freq PRN Reason Stop Dose Admin Acetaminophen 650 mg 06/16/18 00:21 06/18/18 17:43 Tylenol - PO 650 mg Q4H PRN Administration FEVER Albuterol/Ipratropium 1 amp 06/16/18 08:00 06/19/18 08:52 Duoneb - NEB 1 amp RTID [facility] Administration Apixaban 2.5 mg 06/16/18 10:00 06/19/18 09:58 Eliquis - PO 2.5 mg BID [facility] Administration Ascorbic Acid 500 mg 06/16/18 10:00 06/19/18 09:57 Vitamin C - PO 500 mg DAILY [facility] Administration Bacitracin 1 applic 06/16/18 10:00 06/19/18 09:59 Bacitracin - TP 1 applic BID [facility] Administration Bisacodyl 5 mg 06/16/18 10:00 06/19/18 09:58 Dulcolax - PO 5 mg DAILY [facility] Administration Collagenase 1 applic 06/16/18 10:00 06/19/18 10:00 Santyl - TP 1 applic DAILY [facility] Administration Protocol Ferrous Sulfate 325 mg 06/16/18 10:00 06/19/18 09:59 Feosol - PO 325 mg DAILY [facility] Administration Vancomycin HCl 1,000 mg in 250 mls @ 166.667 mls/hr 06/16/18 16:00 06/18/18 19:22 Vancomycin (Pre-Docked) IVPB Not Given Q24H [facility] Protocol Ampicillin Sodium/Sulbactam 100 mls @ 200 mls/hr 06/16/18 21:00 06/19/18 09: 57 Sodium 3 gm/ Dextrose IVPB 200 mls/hr Q6H-IV [facility] Administration Insulin Aspart 1 vial 06/16/18 07:00 06/19/18 06:23 Novolog Vial Sliding Scale - SQ 2 units ACHS [facility] Administration Protocol Insulin Detemir 10 units 06/17/18 22:00 06/19/18 06:24 Levemir Vial SQ 10 units BID@0700,2200 [facility] Administration Lorazepam 0.5 mg 06/16/18 10:00 06/19/18 09:57 Ativan - PO 0.5 mg BID [facility] Administration Ondansetron HCl 4 mg 06/16/18 00:21 Zofran Injection IVPUSH Q6H PRN NAUSEA Propranolol HCl 40 mg 06/16/18 10:00 06/19/18 09:58 Inderal - PO 40 mg BID [facility] Administration Risperidone 0.25 mg 06/16/18 10:00 06/19/18 09:58 Risperdal - PO 0.25 mg BID [facility] Administration Impression 1. Hypernatremia 2. bipolar 3. DM 4. HTN 5. DVT 6. glucosuria Plan - sodium is improving - repeat labs in am - monitor urine output - keep off of fluids - follow repeat urine studies and osm - pt responded to indomethacin - will continue to observe - will need to control blood sugar - monitor for polyuria Dr Bhagat
--- NOTE | 2018-06-19 11:50 | PN ---
Progress Note, HOME HEALTH CARE RESPIRATORY THERAPIST - Note Progress Note: Selected Entries 06/17/18 06/17/18 06/17/18 06:00 09:57 10:41 Breakfast 75% Lunch Supper Temperature 99.8 F H 98.4 F 06/17/18 06/17/18 06/17/18 14:00 18:00 21:50 Breakfast Lunch 75% Supper 50% Temperature 98.4 F 06/17/18 06/18/18 06/18/18 22:00 02:00 10:00 Breakfast Lunch Supper Temperature 99.5 F 99.0 F 97.4 F L 06/18/18 06/18/18 06/19/18 14:00 23:00 06:00 Breakfast 75% Lunch 75% Supper 25% Temperature 98.5 F 06/19/18 10:00 Breakfast Lunch Supper Temperature 98.9 F Laboratory Tests 06/17/18 06/18/18 06/19/18 05:30 07:00 06:30 WBC 8.8 11.5 H 8.7 Sodium 06/19/18 06:30 WBC Sodium 147 H Pt reported to be tolerating thin liquid well without overt signs of aspiration.
--- NOTE | 2018-06-19 12:20 | PN ---
Progress Note, Physician Chief Complaint: Ms Estrada denies cp, sob, n/v. Asking for water, remains thirsty. - Current Medication List Current Medications: Active Medications Acetaminophen (Tylenol -) 650 mg PO Q4H PRN PRN Reason: FEVER Last Admin: 06/18/18 17:43 Dose: 650 mg Albuterol/Ipratropium (Duoneb -) 1 amp NEB RTID [facility] Last Admin: 06/19/18 08:52 Dose: 1 amp Apixaban (Eliquis -) 2.5 mg PO BID [facility] Last Admin: 06/19/18 09:58 Dose: 2.5 mg Ascorbic Acid (Vitamin C -) 500 mg PO DAILY [facility] Last Admin: 06/19/18 09:57 Dose: 500 mg Bacitracin (Bacitracin -) 1 applic TP BID [facility] Last Admin: 06/19/18 09:59 Dose: 1 applic Bisacodyl (Dulcolax -) 5 mg PO DAILY [facility] Last Admin: 06/19/18 09:58 Dose: 5 mg Collagenase (Santyl -) 1 applic TP DAILY [facility]; Protocol Last Admin: 06/19/18 10:00 Dose: 1 applic Ferrous Sulfate (Feosol -) 325 mg PO DAILY [facility] Last Admin: 06/19/18 09:59 Dose: 325 mg Vancomycin HCl (Vancomycin (Pre-Docked)) 1,000 mg in 250 mls @ 166.667 mls/hr IVPB Q24H [facility]; Protocol Last Admin: 06/18/18 19:22 Dose: Not Given Ampicillin Sodium/Sulbactam (Sodium 3 gm/ Dextrose) 100 mls @ 200 mls/hr IVPB Q6H-IV [facility] Last Admin: 06/19/18 09:57 Dose: 200 mls/hr Insulin Aspart (Novolog Vial Sliding Scale -) 1 vial SQ ACHS [facility]; Protocol Last Admin: 06/19/18 11:25 Dose: 6 units Insulin Detemir (Levemir Vial) 10 units SQ BID@0700,2200 [facility] Last Admin: 06/19/18 06:24 Dose: 10 units Lorazepam (Ativan -) 0.5 mg PO BID [facility] Last Admin: 06/19/18 09:57 Dose: 0.5 mg Ondansetron HCl (Zofran Injection) 4 mg IVPUSH Q6H PRN PRN Reason: NAUSEA Propranolol HCl (Inderal -) 40 mg PO BID [facility] Last Admin: 06/19/18 09:58 Dose: 40 mg Risperidone (Risperdal -) 0.25 mg PO BID [facility] Last Admin: 06/19/18 09:58 Dose: 0.25 mg - Objective Vital Signs: Vital Signs Temperature 37.2 C 06/19/18 10:00 Pulse Rate 105 H 06/19/18 10:00 Respiratory Rate 22 H 06/19/18 10:00 Blood Pressure 119/55 L 06/19/18 10:00 O2 Sat by Pulse Oximetry (%) 95 06/19/18 09:00 Constitutional: Yes: Well Nourished, No Distress, Calm Cardiovascular: Yes: Regular Rate and Rhythm. No: Gallop, Murmur, Rub Respiratory: Yes: Regular, CTA Bilaterally, Cough. No: Rales, Rhonchi, Wheezes Gastrointestinal: Yes: Normal Bowel Sounds, Soft. No: Distention, Tenderness Extremities: Yes: Other (wrapped) Edema: No Labs: CBC, BMP 06/19/18 06:30 06/19/18 06:30 Problem List - Problems (1) Stage 4 skin ulcer of sacral region Code(s): L98.429 - NON-PRESSURE CHRONIC ULCER OF BACK WITH UNSPECIFIED SEVERITY (2) Decubitus ulcer of heel, bilateral, stage 3 Code(s): L89.613 - PRESSURE ULCER OF RIGHT HEEL, STAGE 3; L89.623 - PRESSURE ULCER OF LEFT HEEL, STAGE 3 (3) Transaminitis Code(s): R74.0 - NONSPEC ELEV OF LEVELS OF TRANSAMNS & LACTIC ACID DEHYDRGNSE (4) History of DVT (deep vein thrombosis) Code(s): Z86.718 - PERSONAL HISTORY OF OTHER VENOUS THROMBOSIS AND EMBOLISM (5) Bipolar 1 disorder Code(s): F31.9 - BIPOLAR DISORDER, UNSPECIFIED (6) Functional quadriplegia Code(s): R53.2 - FUNCTIONAL QUADRIPLEGIA (7) HTN (hypertension) Code(s): I10 - ESSENTIAL (PRIMARY) HYPERTENSION Qualifiers: Hypertension type: essential hypertension Qualified Code(s): I10 - Essential (primary) hypertension (8) Lactic acidosis Code(s): E87.2 - ACIDOSIS (9) Diabetes Code(s): E11.9 - TYPE 2 DIABETES MELLITUS WITHOUT COMPLICATIONS Qualifiers: Diabetes mellitus type: type 2 Diabetes mellitus long-term insulin use: with long term care social worker use Diabetes mellitus complication status: with skin complications Diabetes mellitus complication detail: with foot ulcer Qualified Code(s): E11.621 - Type 2 diabetes mellitus with foot ulcer; L97.509 - Non-pressure chronic ulcer of other part of unspecified foot with unspecified severity; Z79.4 - termination clerk (current) use of insulin (10) Cough Code(s): R05 - COUGH Assessment/Plan (1) Multiple decubitus ulceration of heels and sacrum Assessment/Plan: -bilateral foot x-ray negative -MRI reviewed -official read of MRI saying plantar fasciitis, but clinical presentation and lab most consistent with osteomyelitis -ID following, vancomycin held secondary to level -expect will need 4-6 weeks total of antibiotics Code(s): L89.613 - PRESSURE ULCER OF RIGHT HEEL, STAGE 3; L89.623 - PRESSURE ULCER OF LEFT HEEL, STAGE 3 (2) Transaminitis Assessment/Plan: -MRCP reviewed -GI following Code(s): R74.0 - NONSPEC ELEV OF LEVELS OF TRANSAMNS & LACTIC ACID DEHYDRGNSE (3) History of DVT (deep vein thrombosis) Assessment/Plan: -continue eliquis Code(s): Z86.718 - PERSONAL HISTORY OF OTHER VENOUS THROMBOSIS AND EMBOLISM (4) Bipolar 1 disorder Assessment/Plan: -continue home regimen -well controlled -not on lithium Code(s): F31.9 - BIPOLAR DISORDER, UNSPECIFIED (5) Functional quadriplegia Assessment/Plan: -PT following Code(s): R53.2 - FUNCTIONAL QUADRIPLEGIA (6) HTN (hypertension) Assessment/Plan: -continue propanolol Code(s): I10 - ESSENTIAL (PRIMARY) HYPERTENSION Qualifiers: Hypertension type: essential hypertension Qualified Code(s): I10 - Essential (primary) hypertension (7) Lactic acidosis Assessment/Plan: -resolved Code(s): E87.2 - ACIDOSIS (8) Diabetes Assessment/Plan -continue levemir 10 units bid -received 10 units this am, monitor glucose requirement today and increase levemir as needed Code(s): E11.9 - TYPE 2 DIABETES MELLITUS WITHOUT COMPLICATIONS Qualifiers: Diabetes mellitus type: type 2 Diabetes mellitus long term care social worker insulin use: with long-term use Diabetes mellitus complication status: with skin complications Diabetes mellitus complication detail: with foot ulcer Qualified Code(s): E11.621 - Type 2 diabetes mellitus with foot ulcer; L97.509 - Non-pressure chronic ulcer of other part of unspecified foot with unspecified severity; Z79.4 - USP (current) use of insulin (9) Cough Assessment/Plan: -barium swallow reviewed -diet per speech therapy Code(s): R05 - COUGH (10) Hypernatremia -continue free water intake and glucose control -improving (11) AMILCAR -resolved
--- NOTE | 2018-06-19 13:18 | PN ---
Progress Note, Physician History of Present Illness: stable no new issues - Current Medication List Current Medications: Active Medications Acetaminophen (Tylenol -) 650 mg PO Q4H PRN PRN Reason: FEVER Last Admin: 06/18/18 17:43 Dose: 650 mg Albuterol/Ipratropium (Duoneb -) 1 amp NEB RTID [facility] Last Admin: 06/19/18 08:52 Dose: 1 amp Apixaban (Eliquis -) 2.5 mg PO BID [facility] Last Admin: 06/19/18 09:58 Dose: 2.5 mg Ascorbic Acid (Vitamin C -) 500 mg PO DAILY [facility] Last Admin: 06/19/18 09:57 Dose: 500 mg Bacitracin (Bacitracin -) 1 applic TP BID [facility] Last Admin: 06/19/18 09:59 Dose: 1 applic Bisacodyl (Dulcolax -) 5 mg PO DAILY [facility] Last Admin: 06/19/18 09:58 Dose: 5 mg Collagenase (Santyl -) 1 applic TP DAILY [facility]; Protocol Last Admin: 06/19/18 10:00 Dose: 1 applic Ferrous Sulfate (Feosol -) 325 mg PO DAILY [facility] Last Admin: 06/19/18 09:59 Dose: 325 mg Ampicillin Sodium/Sulbactam (Sodium 3 gm/ Dextrose) 100 mls @ 200 mls/hr IVPB Q6H-IV [facility] Last Admin: 06/19/18 09:57 Dose: 200 mls/hr Insulin Aspart (Novolog Vial Sliding Scale -) 1 vial SQ ACHS [facility]; Protocol Last Admin: 06/19/18 11:25 Dose: 6 units Insulin Detemir (Levemir Vial) 10 units SQ BID@0700,2200 [facility] Last Admin: 06/19/18 06:24 Dose: 10 units Lorazepam (Ativan -) 0.5 mg PO BID [facility] Last Admin: 06/19/18 09:57 Dose: 0.5 mg Ondansetron HCl (Zofran Injection) 4 mg IVPUSH Q6H PRN PRN Reason: NAUSEA Propranolol HCl (Inderal -) 40 mg PO BID [facility] Last Admin: 06/19/18 09:58 Dose: 40 mg Risperidone (Risperdal -) 0.25 mg PO BID [facility] Last Admin: 06/19/18 09:58 Dose: 0.25 mg - Objective Vital Signs: Vital Signs Temperature 98.9 F 06/19/18 10:00 Pulse Rate 105 H 06/19/18 10:00 Respiratory Rate 22 H 06/19/18 10:00 Blood Pressure 119/55 L 06/19/18 10:00 O2 Sat by Pulse Oximetry (%) 95 06/19/18 09:00 Constitutional: Yes: No Distress, Calm Cardiovascular: Yes: S1, S2 Respiratory: Yes: Regular, CTA Bilaterally Gastrointestinal: Yes: Normal Bowel Sounds, Soft Musculoskeletal: Yes: WNL Extremities: Yes: Other Wound/Incision: Yes: Other (sacral decubitus) Psychiatric: Yes: Alert Labs: CBC, BMP 06/19/18 06:30 06/19/18 06:30 Assessment/Plan Problem List - Problems (1) Decubitus ulcer of heel, bilateral, stage 3 Code(s): L89.613 - PRESSURE ULCER OF RIGHT HEEL, STAGE 3; L89.623 - PRESSURE ULCER OF LEFT HEEL, STAGE 3 (2) Transaminitis Code(s): R74.0 - NONSPEC ELEV OF LEVELS OF TRANSAMNS & LACTIC ACID DEHYDRGNSE (3) History of DVT (deep vein thrombosis) Code(s): Z86.718 - PERSONAL HISTORY OF OTHER VENOUS THROMBOSIS AND EMBOLISM (4) Bipolar 1 disorder Code(s): F31.9 - BIPOLAR DISORDER, UNSPECIFIED (5) Functional quadriplegia Code(s): R53.2 - FUNCTIONAL QUADRIPLEGIA (6) HTN (hypertension) Code(s): I10 - ESSENTIAL (PRIMARY) HYPERTENSION Qualifiers: Hypertension type: essential hypertension Qualified Code(s): I10 - Essential (primary) hypertension (7) Lactic acidosis Code(s): E87.2 - ACIDOSIS (8) Diabetes Code(s): E11.9 - TYPE 2 DIABETES MELLITUS WITHOUT COMPLICATIONS Qualifiers: Diabetes mellitus type: type 2 Diabetes mellitus skilled nursing insulin use: with marine oil terminal superintendent use Diabetes mellitus complication status: with skin complications Diabetes mellitus complication detail: with foot ulcer Qualified Code(s): E11.621 - Type 2 diabetes mellitus with foot ulcer; L97.509 - Non-pressure chronic ulcer of other part of unspecified foot with unspecified severity; Z79.4 - [facility] (current) use of insulin (9) Cough Code(s): R05 - COUGH vanco level noted will stop vanco for now plan vanco on hold will check levels tomorrow rest ct wound care and abx
--- NOTE | 2018-06-19 14:56 | PN ---
GI Progress Note Subjective: GI Note: Today I found Radha with her daughter at the bedside. I explained that her MRCP reveals GB stones but no stones in the CBD. I advised a cholecystectomy before biliary pancreatittis, cholecystitis or cholangitis ensue. I also informed them that the MRCP suggest a gastric outlet obstruction. I explained that given this and her anemia that she should have both an EGD and a colonoscopy to exclude underlying neoplasms. Radha declines bit but will allow a UGI series which I will order. - Objective Vital Signs: Vital Signs Temperature 98.9 F 06/19/18 10:00 Pulse Rate 105 H 06/19/18 10:00 Respiratory Rate 22 H 06/19/18 10:00 Blood Pressure 119/55 L 06/19/18 10:00 O2 Sat by Pulse Oximetry (%) 95 06/19/18 09:00 Laboratory Tests 06/11/18 06/16/18 06/17/18 13:36 07:30 05:30 Total Bilirubin 0.2 0.2 AST 71 H 27 42 H ALT 103 H 67 H 60 Alkaline Phosphatase 200 H 151 H 116 Constitutional: No Distress ...Auscultate: Yes: Normoactive Bowel Sounds ...Palpate: Yes: Soft, Other (nontender) Labs: CBC, BMP 06/19/18 06:30 06/19/18 06:30 Laboratory Tests 05/20/18 05/20/18 06/15/18 06:40 06:40 12:10 Iron 12 L TIBC 191 L Iron Saturation 6 L Ferritin 325.1 C-Reactive Protein 10.5 H Tumor Marker AFP CA 19-9 Antigen ADA Homogeneous Pattern Smooth Musc &[employer] SUPPL[employer] Intrp Tiss Transglutamin IgG Tiss Transglutamin IgA Hepatitis A Ab Total Hep Bs Antigen Hep Bs Antibody Hep B Core Total Ab Hep C Ab Diagnostic 06/16/18 06/16/18 07:30 07:30 Iron TIBC Iron Saturation Ferritin C-Reactive Protein Tumor Marker AFP 8.2 CA 19-9 Antigen 29 ADA Homogeneous Pattern 1:80 Smooth Musc &[employer] SUPPL[employer] Intrp 26 H Tiss Transglutamin IgG 4 Tiss Transglutamin IgA < 2 Hepatitis A Ab Total Negative Hep Bs Antigen Negative Hep Bs Antibody Non reactive Hep B Core Total Ab Negative Hep C Ab Diagnostic <0.1 - ....Imaging MRI: Report Reviewed (Delores Field Name: RADHA RATLIFF DEPARTMENT OF RADIOLOGY Phys: Chel Mcdaniels MD : 1945 Age: 73 Sex: F [facility] Acct: [id number] Loc: [id number] [facility] Exam Date: 06/17/18 Status: [place] [address] Unit Number: [id number] EXAM#: TYPE/EXAM: RESULT: [id number] MRI/ABDOMEN MRI W/O CONTRAST /MRCP ABDOMEN MRI (without contrast)/MRCP Clinical information: gallstones, dilated CBD, elevated liver function studies ; evaluate for CBD stone Multiplanar, multisequence imaging was performed. MRCP evaluation was obtained utilizing fat suppressed heavily T2-weighted fast spin-echo pulse sequences with cholangiographic and tomographic technique. The current exam is correlated with sonography performed on 06/11/2018. No prior MRI /CT studies are available at this facility for direct comparison. Several small gallbladder calculi noted. There is no evidence of gallbladder overdistention, wall edema or pericholecystic fluid. The common bile duct is mildly dilated with a 1 cm maximum diameter. No discrete intraductal calculus is visualized. There is no dilatation of the main pancreatic duct. No obvious pancreatic mass lesion is seen on noncontrast imaging. The liver, spleen, adrenal glands and kidneys demonstrate no discrete noncontrast pathology. There is no aortic aneurysm. No obvious lymphadenopathy is seen. There is moderate fluid and air-filled gastric distention. Impression: There is no MRCP evidence of choledocholithiasis (sensitivity 90%). Cholelithiasis is noted without MRI evidence of acute inflammation. The common bile duct is mildly dilated measuring 1 cm in diameter. Moderate gastric distention is seen - ? incidental transitory appearance versus possible gastroparesis or gastric outlet obstruction. Correlate clinically. Reported By: Antwon Hendricks MD 06/17/182140 Technologist: Ike Ma Transcribed Date/Time: 06/17/182140 Nurse Receptionist: Antwon Hendricks Printed Date/Time: By: Signed by: Antwon Hendricks Signed on: 21:42) Problem List - Problems (1) Gallstones Assessment/Plan: Suspect repeated passage of gallstones as the cause of abnormal LFTs and advised cholecystectomy but Radha declines. Code(s): K80.20 - CALCULUS OF GALLBLADDER W/O CHOLECYSTITIS W/O OBSTRUCTION (2) Anemia Assessment/Plan: EGD and colonoscopy advised to exclude neoplasms, ulcers, GERD and vascular ectasias as the etiology but Radha again declined, now in the presence of her daughter. Will order UGI given the MRI abnormality. 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 - NEPHROGENIC DIABETES INSIPIDUS (5) Transaminitis Code(s): R74.0 - NONSPEC ELEV OF LEVELS OF TRANSAMNS & LACTIC ACID DEHYDRGNSE (6) Dilated bile duct Code(s): K83.8 - OTHER SPECIFIED DISEASES OF BILIARY TRACT (7) Bipolar 1 disorder Code(s): F31.9 - BIPOLAR DISORDER, UNSPECIFIED (8) Diabetes Code(s): E11.9 - TYPE 2 DIABETES MELLITUS WITHOUT COMPLICATIONS Qualifiers: Diabetes mellitus type: type 2 Diabetes mellitus skilled nursing insulin use: with skilled nursing use Diabetes mellitus complication status: with skin complications Diabetes mellitus complication detail: with foot ulcer Qualified Code(s): E11.621 - Type 2 diabetes mellitus with foot ulcer; L97.509 - Non-pressure chronic ulcer of other part of unspecified foot with unspecified severity; Z79.4 - [facility] (current) use of insulin (9) Constipation Code(s): K59.00 - CONSTIPATION, UNSPECIFIED
[2018-06-19 19:01] LABS: URINE APPEARANCE CLEAR; URINE BILIRUBIN NEGATIVE (<2.0 mg/dL); URINE COLOR STRAW; URINE GLUCOSE (UA) NEGATIVE (NEGATIVE); URINE KETONE NEGATIVE (NEGATIVE); URINE LEUK ESTERASE TRACE (NEGATIVE); URINE NITRITE NEGATIVE (NEGATIVE); URINE PROTEIN NEGATIVE (NEGATIVE); URINE UROBILINOGEN NEGATIVE mg/dL (0.2-1.0)
[2018-06-19 19:12] LABS: EPI CELLS RARE /HPF (FEW); URINE BACTERIA RARE /hpf (NONE SEEN); URINE MUCUS RARE
[2018-06-20] MEDS: AMPICILLIN NA/SULBACTAM NA 3 GM in DEXTROSE 5%-WATER 100 ML IVPB SCH ×4 (02:35→21:50)
[2018-06-20] MEDS: INSULIN (LEVEMIR) 100 UNITS/ML UNITS SQ SCH ×2 (06:33→21:53)
[2018-06-20] MEDS: INSULIN SLIDING SCALE (NOVOLOG) 1 VIAL SQ SCH ×4 (06:33→21:53)
[2018-06-20] MEDS: ALBUTEROL SO4 2.5/IPRATROPIUM 0.5 INH SOL 3 ML VIAL.NEB. NEB SCH ×3 (07:50→20:28)
[2018-06-20 08:27] LABS: BASO % 0.8 % (0-2.0); EOS % 7.6 % (0-4.5); HEMOGLOBIN 7.6 GM/dL (10.7-15.3); MCHC 31.6 g/dl (32.0-36.0); MEAN CELL VOLUME 88.7 fl (80-96); MEAN PLT VOLUME 8.9 fl (7.5-11.1); MONO % 7.3 % (3.8-10.2); NEUT % 55.3 % (42.8-82.8); PLATELET COUNT 391 K/MM3 (134-434); RDW 18.1 % (11.6-15.6); WHITE BLOOD COUNT 7.5 K/mm3 (4.0-10.0)
[2018-06-20 09:07] LABS: ANION GAP 7 MMOL/L (8-16); BLOOD UREA NITROGEN 18 mg/dL (7-18); CHLORIDE 115 mmol/L (98-107); CO2 25 mmol/L (21-32); CREATININE 1.5 mg/dL (0.55-1.3); GLUCOSE,RANDOM 103 mg/dL (74-106); MAGNESIUM 2.5 mg/dL (1.8-2.4); PHOSPHOROUS 4.8 mg/dL (2.5-4.9); POTASSIUM 4.5 mmol/L (3.5-5.1); SODIUM 147 mmol/L (136-145)
[2018-06-20] MEDS ORDERED: INDOMETHACIN 50 MG CAPSULE PO ONE (09:10)
--- NOTE | 2018-06-20 09:30 | PN ---
Progress Note, Physician Chief Complaint: No new complaints, hemodynamically stable and afebrile History of Present Illness: 73 year old female who was sent in from [facility] with worsening heel ulceration and failure to thrive. She was recently admitted for sepsis and AMILCAR secondary to sacral ulceration last month. She is being followed by wound care in [facility], however her heel ulcers have progressed. - Current Medication List Current Medications: Active Medications Acetaminophen (Tylenol -) 650 mg PO Q4H PRN PRN Reason: FEVER Last Admin: 06/18/18 17:43 Dose: 650 mg Albuterol/Ipratropium (Duoneb -) 1 amp NEB RTID [facility] Last Admin: 06/19/18 20:17 Dose: Not Given Apixaban (Eliquis -) 2.5 mg PO BID [facility] Last Admin: 06/19/18 21:35 Dose: 2.5 mg Ascorbic Acid (Vitamin C -) 500 mg PO DAILY [facility] Last Admin: 06/19/18 09:57 Dose: 500 mg Bacitracin (Bacitracin -) 1 applic TP BID [facility] Last Admin: 06/19/18 21:37 Dose: 1 applic Bisacodyl (Dulcolax -) 5 mg PO DAILY [facility] Last Admin: 06/19/18 09:58 Dose: 5 mg Collagenase (Santyl -) 1 applic TP DAILY [facility]; Protocol Last Admin: 06/19/18 10:00 Dose: 1 applic Ferrous Sulfate (Feosol -) 325 mg PO DAILY [facility] Last Admin: 06/19/18 09:59 Dose: 325 mg Ampicillin Sodium/Sulbactam (Sodium 3 gm/ Dextrose) 100 mls @ 200 mls/hr IVPB Q6H-IV [facility] Last Admin: 06/20/18 02:35 Dose: 200 mls/hr Insulin Aspart (Novolog Vial Sliding Scale -) 1 vial SQ ACHS [facility]; Protocol Last Admin: 06/20/18 06:33 Dose: Not Given Insulin Detemir (Levemir Vial) 10 units SQ BID@0700,2200 [facility] Last Admin: 06/20/18 06:33 Dose: 10 units Lorazepam (Ativan -) 0.5 mg PO BID [facility] Last Admin: 06/19/18 21:35 Dose: 0.5 mg Ondansetron HCl (Zofran Injection) 4 mg IVPUSH Q6H PRN PRN Reason: NAUSEA Propranolol HCl (Inderal -) 40 mg PO BID [facility] Last Admin: 06/19/18 21:36 Dose: 40 mg Risperidone (Risperdal -) 0.25 mg PO BID [facility] Last Admin: 06/19/18 21:35 Dose: 0.25 mg - Objective Vital Signs: Vital Signs Temperature 99.0 F 06/20/18 08:04 Pulse Rate 91 H 06/20/18 08:04 Respiratory Rate 16 06/20/18 08:04 Blood Pressure 114/50 L 06/20/18 08:04 O2 Sat by Pulse Oximetry (%) 95 06/19/18 21:00 Constitutional: Yes: Well Nourished, No Distress, Calm Cardiovascular: Yes: Regular Rate and Rhythm. No: Gallop, Murmur, Rub Respiratory: Yes: Regular, CTA Bilaterally. No: Rales, Rhonchi, Wheezes Gastrointestinal: Yes: Normal Bowel Sounds, Soft. No: Distention, Tenderness Extremities: Yes: Other (feet wrapped) Edema: No Integumentary: Yes: Pressure Ulcer Labs: CBC, BMP 06/20/18 07:16 06/20/18 07:16 Problem List - Problems (1) Decubitus ulcer of heel, bilateral, stage 3 Assessment/Plan: Infected evaluated by ID and Wound care cont current abx and wound care Code(s): L89.613 - PRESSURE ULCER OF RIGHT HEEL, STAGE 3; L89.623 - PRESSURE ULCER OF LEFT HEEL, STAGE 3 (2) Multiple open wounds Assessment/Plan: nfected evaluated by ID and Wound care cont current abx and wound care Code(s): T07.XXXA - UNSPECIFIED MULTIPLE INJURIES, INITIAL ENCOUNTER (3) Stage 4 skin ulcer of sacral region Assessment/Plan: nfected evaluated by ID and Wound care cont current abx and wound care Code(s): L98.429 - NON-PRESSURE CHRONIC ULCER OF BACK WITH UNSPECIFIED SEVERITY (4) Anemia Assessment/Plan: Chronic H/H are stable Code(s): D64.9 - ANEMIA, UNSPECIFIED Qualifiers: Chronic kidney disease stage: unspecified stage (5) CKD (chronic kidney disease) Assessment/Plan: Renal function are stable Code(s): N18.9 - CHRONIC KIDNEY DISEASE, UNSPECIFIED Qualifiers: Chronic kidney disease stage: stage 2 (mild) Qualified Code(s): N18.2 - Chronic kidney disease, stage 2 (mild) (6) Diabetes Assessment/Plan: T2 with nephropathy optimize Glycemic control Code(s): E11.9 - TYPE 2 DIABETES MELLITUS WITHOUT COMPLICATIONS Qualifiers: Diabetes mellitus type: type 2 Diabetes mellitus [facility] insulin use: with ferry terminal agent use Diabetes mellitus complication status: with skin complications Diabetes mellitus complication detail: with foot ulcer Qualified Code(s): E11.621 - Type 2 diabetes mellitus with foot ulcer; L97.509 - Non-pressure chronic ulcer of other part of unspecified foot with unspecified severity; Z79.4 - skilled nursing (current) use of insulin (7) Functional quadriplegia Assessment/Plan: at base line no active issue Code(s): R53.2 - FUNCTIONAL QUADRIPLEGIA (8) HLD (hyperlipidemia) Assessment/Plan: cont Statin Code(s): E78.5 - HYPERLIPIDEMIA, UNSPECIFIED (9) HTN (hypertension) Assessment/Plan: well controlled cont all home meds Code(s): I10 - ESSENTIAL (PRIMARY) HYPERTENSION Qualifiers: Hypertension type: essential hypertension Qualified Code(s): I10 - Essential (primary) hypertension (10) History of DVT (deep vein thrombosis) Assessment/Plan: Chronic on Ac Code(s): Z86.718 - PERSONAL HISTORY OF OTHER VENOUS THROMBOSIS AND EMBOLISM (11) Sepsis Assessment/Plan: Improving on IV abx Code(s): A41.9 - SEPSIS, UNSPECIFIED ORGANISM (12) Gallstones Code(s): K80.20 - CALCULUS OF GALLBLADDER W/O CHOLECYSTITIS W/O OBSTRUCTION
[2018-06-20] MEDS ORDERED: PT OWN MED DRAWER 7, Y5N ONE ×4 (09:46→15:37)
[2018-06-20] MEDS: APIXABAN 2.5 MG TABLET PO SCH ×2 (09:50→22:10)
[2018-06-20] MEDS: BISACODYL 5 MG TABLET.DR (FP) PO SCH (09:50)
[2018-06-20] MEDS: LORazepam 0.5 MG TABLET PO SCH ×2 (09:50→22:10)
[2018-06-20] MEDS: ASCORBIC ACID 500 MG TABLET (FP) PO SCH (09:50)
[2018-06-20] MEDS: FERROUS SO4 325 MG TABLET (FP) PO SCH (09:50)
[2018-06-20] MEDS: risperiDONE 0.25 MG TABLET (FP) PO SCH ×2 (09:51→21:51)
[2018-06-20] MEDS: BACITRACIN 15 GM TUBE TOPICAL OINTMENT TP SCH ×3 (09:52→21:53)
[2018-06-20] MEDS ORDERED: INDOMETHACIN 25 MG CAPSULE PO SCH (10:00)
[2018-06-20 10:13] LABS: ALPHA 2 MACROGLOBULINS,QN 151 mg/dL (110-276); ALT(SGPT)P5P 60 IU/L (0-40); CHOLESTEROL TOTAL 161 mg/dL (100-199); FIBROSIS SCORE 0.07 (0.00-0.21); GGT= 80 IU/L (0-60); GLUCOSE SERUM 120 mg/dL (65-99); HEIGHT 62 in (.); WEIGHT- 125 LBS (.)
[2018-06-20] MEDS: COLLAGENASE CLOSTRIDIUM HIST. 30 GRAMS TUBE TP SCH (11:30)
[2018-06-20] MEDS ORDERED: INDOMETHACIN 25 MG CAPSULE PO ONE ×2 (13:00)
--- NOTE | 2018-06-20 14:41 | PN ---
Progress Note, Physician History of Present Illness: Pt is alert, without acute distress. States she feels "alright". Remains afebrile. She has no specific complaints. - Current Medication List Current Medications: Active Medications Acetaminophen (Tylenol -) 650 mg PO Q4H PRN PRN Reason: FEVER Last Admin: 06/18/18 17:43 Dose: 650 mg Albuterol/Ipratropium (Duoneb -) 1 amp NEB RTID [facility] Last Admin: 06/20/18 07:50 Dose: 1 amp Apixaban (Eliquis -) 2.5 mg PO BID [facility] Last Admin: 06/20/18 09:50 Dose: 2.5 mg Ascorbic Acid (Vitamin C -) 500 mg PO DAILY [facility] Last Admin: 06/20/18 09:50 Dose: 500 mg Bacitracin (Bacitracin -) 1 applic TP BID [facility] Last Admin: 06/19/18 21:37 Dose: 1 applic Bisacodyl (Dulcolax -) 5 mg PO DAILY [facility] Last Admin: 06/20/18 09:50 Dose: 5 mg Collagenase (Santyl -) 1 applic TP DAILY [facility]; Protocol Last Admin: 06/20/18 11:30 Dose: 1 applic Ferrous Sulfate (Feosol -) 325 mg PO DAILY [facility] Last Admin: 06/20/18 09:50 Dose: 325 mg Ampicillin Sodium/Sulbactam (Sodium 3 gm/ Dextrose) 100 mls @ 200 mls/hr IVPB Q6H-IV [facility] Last Admin: 06/20/18 09:51 Dose: 200 mls/hr Insulin Aspart (Novolog Vial Sliding Scale -) 1 vial SQ ACHS [facility]; Protocol Last Admin: 06/20/18 11:57 Dose: 6 units Insulin Detemir (Levemir Vial) 10 units SQ BID@0700,2200 [facility] Last Admin: 06/20/18 06:33 Dose: 10 units Lorazepam (Ativan -) 0.5 mg PO BID [facility] Last Admin: 06/20/18 09:50 Dose: 0.5 mg Ondansetron HCl (Zofran Injection) 4 mg IVPUSH Q6H PRN PRN Reason: NAUSEA Propranolol HCl (Inderal -) 40 mg PO BID [facility] Last Admin: 06/20/18 09:50 Dose: 40 mg Risperidone (Risperdal -) 0.25 mg PO BID [facility] Last Admin: 06/20/18 09:51 Dose: 0.25 mg - Objective Vital Signs: Vital Signs Temperature 99.0 F 06/20/18 08:04 Pulse Rate 98 H 06/20/18 09:30 Respiratory Rate 18 06/20/18 09:30 Blood Pressure 110/60 06/20/18 09:30 O2 Sat by Pulse Oximetry (%) 95 06/20/18 09:00 Constitutional: Yes: No Distress, Calm Cardiovascular: Yes: Regular Rate and Rhythm Respiratory: Yes: Regular Gastrointestinal: Yes: Normal Bowel Sounds, Soft Wound/Incision: Yes: Dressing Dry and Intact (Pt refusing removal of dressing on Rt heel for examination) Neurological: Yes: Alert Labs: CBC, BMP 06/20/18 07:16 06/20/18 07:16 Microbiology 06/11/18 13:36 Blood - Peripheral Venous Blood Culture - Final NO GROWTH AFTER 5 DAYS INCUBATION 06/11/18 13:36 Blood - Peripheral Venous Blood Culture - Final NO GROWTH AFTER 5 DAYS INCUBATION 06/11/18 14:40 Drainage (Swab) Gram Stain - Final 06/11/18 14:40 Drainage (Swab) Wound Culture - Final Enterococcus Faecalis Alpha Hemolytic Streptococcus Escherichia Coli Proteus Mirabilis 06/11/18 14:40 Foot - Right Achilles Gram Stain - Final 06/11/18 14:40 Foot - Right Achilles Wound Culture - Final Mr S Aureus Enterococcus Faecalis Morganella Morganii 06/11/18 15:21 Urine - Urine - Catheterized Urine Culture - Final Problem List - Problems (1) Decubitus ulcer of heel, bilateral, stage 3 Code(s): L89.613 - PRESSURE ULCER OF RIGHT HEEL, STAGE 3; L89.623 - PRESSURE ULCER OF LEFT HEEL, STAGE 3 (2) Gallstones Code(s): K80.20 - CALCULUS OF GALLBLADDER W/O CHOLECYSTITIS W/O OBSTRUCTION (3) AMILCAR (acute kidney injury) Code(s): N17.9 - ACUTE KIDNEY FAILURE, UNSPECIFIED (4) Bipolar 1 disorder Code(s): F31.9 - BIPOLAR DISORDER, UNSPECIFIED (5) Diabetes Code(s): E11.9 - TYPE 2 DIABETES MELLITUS WITHOUT COMPLICATIONS Qualifiers: Diabetes mellitus type: type 2 Diabetes mellitus termite technician insulin use: with termite technician use Diabetes mellitus complication status: with skin complications Diabetes mellitus complication detail: with foot ulcer Qualified Code(s): E11.621 - Type 2 diabetes mellitus with foot ulcer; L97.509 - Non-pressure chronic ulcer of other part of unspecified foot with unspecified severity; Z79.4 - half-way (current) use of insulin (6) History of DVT (deep vein thrombosis) Code(s): Z86.718 - PERSONAL HISTORY OF OTHER VENOUS THROMBOSIS AND EMBOLISM Assessment/Plan Infected Rt heel DU s/p debridement AMILCAR DM HTN HLD -- Vancomycin level noted, will hold and repeat level, Continue Unasyn -- monitor renal function -- continue wound care, offloading -- pt currently afebrile, without acute distress
--- NOTE | 2018-06-20 18:39 | PN ---
Progress Note, Physician History of Present Illness: Pt seen and examined at bedside earlier today. She is awake and alert. She denies shortness of breath. - Current Medication List Current Medications: Active Medications Acetaminophen (Tylenol -) 650 mg PO Q4H PRN PRN Reason: FEVER Last Admin: 06/18/18 17:43 Dose: 650 mg Albuterol/Ipratropium (Duoneb -) 1 amp NEB RTID [facility] Last Admin: 06/20/18 07:50 Dose: 1 amp Apixaban (Eliquis -) 2.5 mg PO BID [facility] Last Admin: 06/20/18 09:50 Dose: 2.5 mg Ascorbic Acid (Vitamin C -) 500 mg PO DAILY [facility] Last Admin: 06/20/18 09:50 Dose: 500 mg Bacitracin (Bacitracin -) 1 applic TP BID [facility] Last Admin: 06/20/18 15:39 Dose: 1 applic Bisacodyl (Dulcolax -) 5 mg PO DAILY [facility] Last Admin: 06/20/18 09:50 Dose: 5 mg Collagenase (Santyl -) 1 applic TP DAILY [facility]; Protocol Last Admin: 06/20/18 11:30 Dose: 1 applic Ferrous Sulfate (Feosol -) 325 mg PO DAILY [facility] Last Admin: 06/20/18 09:50 Dose: 325 mg Ampicillin Sodium/Sulbactam (Sodium 3 gm/ Dextrose) 100 mls @ 200 mls/hr IVPB Q6H-IV [facility] Last Admin: 06/20/18 15:39 Dose: 200 mls/hr Insulin Aspart (Novolog Vial Sliding Scale -) 1 vial SQ ACHS [facility]; Protocol Last Admin: 06/20/18 16:13 Dose: 2 units Insulin Detemir (Levemir Vial) 10 units SQ BID@0700,2200 [facility] Last Admin: 06/20/18 06:33 Dose: 10 units Lorazepam (Ativan -) 0.5 mg PO BID [facility] Last Admin: 06/20/18 09:50 Dose: 0.5 mg Ondansetron HCl (Zofran Injection) 4 mg IVPUSH Q6H PRN PRN Reason: NAUSEA Propranolol HCl (Inderal -) 40 mg PO BID [facility] Last Admin: 06/20/18 09:50 Dose: 40 mg Risperidone (Risperdal -) 0.25 mg PO BID [facility] Last Admin: 06/20/18 09:51 Dose: 0.25 mg - Objective Vital Signs: Vital Signs Temperature 98.8 F 06/20/18 15:15 Pulse Rate 75 06/20/18 15:15 Respiratory Rate 18 06/20/18 15:15 Blood Pressure 120/55 L 06/20/18 15:15 O2 Sat by Pulse Oximetry (%) 95 06/20/18 09:00 Constitutional: Yes: Calm HENT: Yes: Atraumatic Neck: Yes: Supple Cardiovascular: Yes: S1, S2 Respiratory: Yes: CTA Bilaterally Gastrointestinal: Yes: Soft Genitourinary: Yes: Tejeda Present, Polyuria Musculoskeletal: Yes: WNL Edema: No Neurological: Yes: Oriented Psychiatric: Yes: Oriented Labs: CBC, BMP 06/20/18 07:16 06/20/18 07:16 Problem List - Problems (1) Acute hypernatremia Code(s): E87.0 - HYPEROSMOLALITY AND HYPERNATREMIA (2) HTN (hypertension) Code(s): I10 - ESSENTIAL (PRIMARY) HYPERTENSION Qualifiers: Hypertension type: essential hypertension Qualified Code(s): I10 - Essential (primary) hypertension Assessment/Plan Current Medications Generic Name Dose Route Start Last Admin Trade Name Freq PRN Reason Stop Dose Admin Acetaminophen 650 mg 06/16/18 00:21 06/18/18 17:43 Tylenol - PO 650 mg Q4H PRN Administration FEVER Albuterol/Ipratropium 1 amp 06/16/18 08:00 06/20/18 07:50 Duoneb - NEB 1 amp RTID YOAV Administration Apixaban 2.5 mg 06/16/18 10:00 06/20/18 09:50 Eliquis - PO 2.5 mg BID YOAV Administration Ascorbic Acid 500 mg 06/16/18 10:00 06/20/18 09:50 Vitamin C - PO 500 mg DAILY YOAV Administration Bacitracin 1 applic 06/16/18 10:00 06/20/18 15:39 Bacitracin - TP 1 applic BID YOAV Administration Bisacodyl 5 mg 06/16/18 10:00 06/20/18 09:50 Dulcolax - PO 5 mg DAILY YOAV Administration Collagenase 1 applic 06/16/18 10:00 06/20/18 11:30 Santyl - TP 1 applic DAILY YOAV Administration Protocol Ferrous Sulfate 325 mg 06/16/18 10:00 06/20/18 09:50 Feosol - PO 325 mg DAILY YOAV Administration Ampicillin Sodium/Sulbactam 100 mls @ 200 mls/hr 06/16/18 21:00 06/20/18 15: 39 Sodium 3 gm/ Dextrose IVPB 200 mls/hr Q6H-IV YOAV Administration Insulin Aspart 1 vial 06/16/18 07:00 06/20/18 16:13 Novolog Vial Sliding Scale - SQ 2 units ACHS YOAV Administration Protocol Insulin Detemir 10 units 06/17/18 22:00 06/20/18 06:33 Levemir Vial SQ 10 units BID@0700,2200 YOAV Administration Lorazepam 0.5 mg 06/16/18 10:00 06/20/18 09:50 Ativan - PO 0.5 mg BID YOAV Administration Ondansetron HCl 4 mg 06/16/18 00:21 Zofran Injection IVPUSH Q6H PRN NAUSEA Propranolol HCl 40 mg 06/16/18 10:00 06/20/18 09:50 Inderal - PO 40 mg BID YOAV Administration Risperidone 0.25 mg 06/16/18 10:00 06/20/18 09:51 Risperdal - PO 0.25 mg BID YOAV Administration Laboratory Tests 06/17/18 06/19/18 06/19/18 13:00 18:30 18:30 Urine Glucose (UA) Negative Urine Osmolality 128 L 177 L Impression 1. Hypernatremia 2. bipolar 3. DM 4. HTN 5. DVT 6. glucosuria Plan - pt did show an improvement with indomethacin - monitor sodium - monitor urine output - avoid hyperglycemia - pt may have renal involvement from history of lithium use - will follow - repeat sodium in am Dr Bhagat
[2018-06-21] MEDS: AMPICILLIN NA/SULBACTAM NA 3 GM in DEXTROSE 5%-WATER 100 ML IVPB SCH ×4 (03:20→21:42)
[2018-06-21] MEDS ORDERED: PT OWN MED DRAWER 7, Y5N ONE ×6 (05:54→14:44)
[2018-06-21] MEDS: INSULIN SLIDING SCALE (NOVOLOG) 1 VIAL SQ SCH ×4 (06:35→21:59)
[2018-06-21] MEDS: INSULIN (LEVEMIR) 100 UNITS/ML UNITS SQ SCH ×2 (06:35→21:58)
[2018-06-21 08:03] LABS: BASO % 0.6 % (0-2.0); EOS % 6.2 % (0-4.5); HEMATOCRIT 24.4 % (32.4-45.2); HEMOGLOBIN 7.5 GM/dL (10.7-15.3); LYMPH % 27.5 % (8-40); MCH 27.5 pg (25.7-33.7); MCHC 30.8 g/dl (32.0-36.0); MEAN CELL VOLUME 89.4 fl (80-96); MEAN PLT VOLUME 8.5 fl (7.5-11.1); MONO % 8.8 % (3.8-10.2); NEUT % 56.9 % (42.8-82.8); PLATELET COUNT 328 K/MM3 (134-434); RBC 2.73 M/mm3 (3.60-5.2); WHITE BLOOD COUNT 6.9 K/mm3 (4.0-10.0)
[2018-06-21 08:49] LABS: ALBUMIN 1.6 g/dl (3.4-5.0); ALK PHOS 109 U/L (45-117); ANION GAP 11 MMOL/L (8-16); BILIRUBIN,TOTAL 0.2 mg/dL (0.2-1); BLOOD UREA NITROGEN 19 mg/dL (7-18); CALCIUM 8.2 mg/dL (8.5-10.1); CHLORIDE 115 mmol/L (98-107); CO2 25 mmol/L (21-32); CREATININE 1.5 mg/dL (0.55-1.3); POTASSIUM 4.5 mmol/L (3.5-5.1); SGOT/AST 32 U/L (15-37); SGPT/ALT 54 U/L (13-61); SODIUM 151 mmol/L (136-145); TOT PROT 5.4 g/dl (6.4-8.2)
[2018-06-21 09:05] LABS: GLUCOSE,RANDOM 48 mg/dL (74-106)
[2018-06-21] MEDS ORDERED: INDOMETHACIN 50 MG CAPSULE PO ONE (09:20)
[2018-06-21] MEDS ORDERED: DESMOPRESSIN ACETATE 4 MCG/ML AMP IVPB ONE (09:20)
[2018-06-21] MEDS: ASCORBIC ACID 500 MG TABLET (FP) PO SCH (09:34)
[2018-06-21] MEDS: LORazepam 0.5 MG TABLET PO SCH ×2 (09:34→21:58)
[2018-06-21] MEDS: risperiDONE 0.25 MG TABLET (FP) PO SCH ×2 (09:34→21:43)
[2018-06-21] MEDS: APIXABAN 2.5 MG TABLET PO SCH ×2 (09:34→21:58)
[2018-06-21] MEDS: FERROUS SO4 325 MG TABLET (FP) PO SCH (09:34)
[2018-06-21] MEDS: BISACODYL 5 MG TABLET.DR (FP) PO SCH (09:34)
--- NOTE | 2018-06-21 10:58 | PN ---
Progress Note, Physician Chief Complaint: No new complaints, hemodynamically stable and afebrile History of Present Illness: 73 year old female who was sent in from [place] with worsening heel ulceration and failure to thrive. She was recently admitted for sepsis and AMILCAR secondary to sacral ulceration last month. She is being followed by wound care in [place], however her heel ulcers have progressed. - Current Medication List Current Medications: Active Medications Acetaminophen (Tylenol -) 650 mg PO Q4H PRN PRN Reason: FEVER Last Admin: 06/18/18 17:43 Dose: 650 mg Apixaban (Eliquis -) 2.5 mg PO BID [facility] Last Admin: 06/21/18 09:34 Dose: 2.5 mg Ascorbic Acid (Vitamin C -) 500 mg PO DAILY [facility] Last Admin: 06/21/18 09:34 Dose: 500 mg Bacitracin (Bacitracin -) 1 applic TP BID [facility] Last Admin: 06/20/18 21:53 Dose: 1 applic Bisacodyl (Dulcolax -) 5 mg PO DAILY [facility] Last Admin: 06/21/18 09:34 Dose: 5 mg Collagenase (Santyl -) 1 applic TP DAILY [facility]; Protocol Last Admin: 06/20/18 11:30 Dose: 1 applic Ferrous Sulfate (Feosol -) 325 mg PO DAILY [facility] Last Admin: 06/21/18 09:34 Dose: 325 mg Ampicillin Sodium/Sulbactam (Sodium 3 gm/ Dextrose) 100 mls @ 200 mls/hr IVPB Q6H-IV YOAV Last Admin: 06/21/18 08:34 Dose: 200 mls/hr Insulin Aspart (Novolog Vial Sliding Scale -) 1 vial SQ ACHS [facility]; Protocol Last Admin: 06/21/18 06:35 Dose: Not Given Insulin Detemir (Levemir Vial) 10 units SQ BID@0700,2200 [facility] Last Admin: 06/21/18 06:35 Dose: Not Given Lorazepam (Ativan -) 0.5 mg PO BID [facility] Last Admin: 06/21/18 09:34 Dose: 0.5 mg Ondansetron HCl (Zofran Injection) 4 mg IVPUSH Q6H PRN PRN Reason: NAUSEA Propranolol HCl (Inderal -) 40 mg PO BID [facility] Last Admin: 06/21/18 09:34 Dose: 40 mg Risperidone (Risperdal -) 0.25 mg PO BID YO[facility] Last Admin: 06/21/18 09:34 Dose: 0.25 mg - Objective Vital Signs: Vital Signs Temperature 98.4 F 06/21/18 07:53 Pulse Rate 72 06/21/18 07:53 Respiratory Rate 18 06/21/18 07:53 Blood Pressure 118/62 06/21/18 07:53 O2 Sat by Pulse Oximetry (%) 95 06/20/18 21:00 Constitutional: Yes: Well Nourished, No Distress, Calm Cardiovascular: Yes: Regular Rate and Rhythm. No: Gallop, Murmur, Rub Respiratory: Yes: Regular, CTA Bilaterally. No: Rales, Rhonchi, Wheezes Gastrointestinal: Yes: Normal Bowel Sounds, Soft. No: Distention, Tenderness Extremities: Yes: Other (feet wrapped) Edema: No Integumentary: Yes: Pressure Ulcer Labs: Labs: CBC, BMP 06/21/18 07:09 06/21/18 07:09 Problem List - Problems (1) Decubitus ulcer of heel, bilateral, stage 3 Assessment/Plan: Infected evaluated by ID and Wound care cont current abx and wound care Code(s): L89.613 - PRESSURE ULCER OF RIGHT HEEL, STAGE 3; L89.623 - PRESSURE ULCER OF LEFT HEEL, STAGE 3 (2) Multiple open wounds Assessment/Plan: nfected evaluated by ID and Wound care cont current abx and wound care Code(s): T07.XXXA - UNSPECIFIED MULTIPLE INJURIES, INITIAL ENCOUNTER (3) Stage 4 skin ulcer of sacral region Assessment/Plan: nfected evaluated by ID and Wound care cont current abx and wound care Code(s): L98.429 - NON-PRESSURE CHRONIC ULCER OF BACK WITH UNSPECIFIED SEVERITY (4) Anemia Assessment/Plan: HB 6.9 transfuse 1 PRBC Code(s): D64.9 - ANEMIA, UNSPECIFIED Qualifiers: Chronic kidney disease stage: unspecified stage (5) CKD (chronic kidney disease) Assessment/Plan: Renal function are stable Code(s): N18.9 - CHRONIC KIDNEY DISEASE, UNSPECIFIED Qualifiers: Chronic kidney disease stage: stage 2 (mild) Qualified Code(s): N18.2 - Chronic kidney disease, stage 2 (mild) (6) Diabetes Assessment/Plan: T2 with nephropathy optimize Glycemic control Code(s): E11.9 - TYPE 2 DIABETES MELLITUS WITHOUT COMPLICATIONS Qualifiers: Diabetes mellitus type: type 2 Diabetes mellitus gem carver insulin use: with mcfp use Diabetes mellitus complication status: with skin complications Diabetes mellitus complication detail: with foot ulcer Qualified Code(s): E11.621 - Type 2 diabetes mellitus with foot ulcer; L97.509 - Non-pressure chronic ulcer of other part of unspecified foot with unspecified severity; Z79.4 - nursing home (current) use of insulin (7) Functional quadriplegia Assessment/Plan: at base line no active issue Code(s): R53.2 - FUNCTIONAL QUADRIPLEGIA (8) HLD (hyperlipidemia) Assessment/Plan: cont Statin Code(s): E78.5 - HYPERLIPIDEMIA, UNSPECIFIED (9) HTN (hypertension) Assessment/Plan: well controlled cont all home meds Code(s): I10 - ESSENTIAL (PRIMARY) HYPERTENSION Qualifiers: Hypertension type: essential hypertension Qualified Code(s): I10 - Essential (primary) hypertension (10) History of DVT (deep vein thrombosis) Assessment/Plan: Chronic on Ac Code(s): Z86.718 - PERSONAL HISTORY OF OTHER VENOUS THROMBOSIS AND EMBOLISM (11) Sepsis Assessment/Plan: Improving on IV abx Code(s): A41.9 - SEPSIS, UNSPECIFIED ORGANISM (12) Gallstones Assessment/Plan: No active issue evaluted By GI Code(s): K80.20 - CALCULUS OF GALLBLADDER W/O CHOLECYSTITIS W/O OBSTRUCTION
[2018-06-21] MEDS: COLLAGENASE CLOSTRIDIUM HIST. 30 GRAMS TUBE TP SCH (13:19)
[2018-06-21] MEDS: BACITRACIN 15 GM TUBE TOPICAL OINTMENT TP SCH ×2 (13:19→21:45)
[2018-06-21 13:27] LABS: ANION GAP 9 MMOL/L (8-16); BLOOD UREA NITROGEN 20 mg/dL (7-18); CHLORIDE 112 mmol/L (98-107); CO2 24 mmol/L (21-32); CREATININE 1.5 mg/dL (0.55-1.3); GLUCOSE,RANDOM 169 mg/dL (74-106); POTASSIUM 4.5 mmol/L (3.5-5.1); SODIUM 145 mmol/L (136-145)
--- NOTE | 2018-06-21 14:02 | PN ---
Progress Note, Physician History of Present Illness: Pt is alert, afebrile. Without new complaints. - Current Medication List Current Medications: Active Medications Acetaminophen (Tylenol -) 650 mg PO Q4H PRN PRN Reason: FEVER Last Admin: 06/18/18 17:43 Dose: 650 mg Apixaban (Eliquis -) 2.5 mg PO BID [facility] Last Admin: 06/21/18 09:34 Dose: 2.5 mg Ascorbic Acid (Vitamin C -) 500 mg PO DAILY [facility] Last Admin: 06/21/18 09:34 Dose: 500 mg Bacitracin (Bacitracin -) 1 applic TP BID [facility] Last Admin: 06/21/18 13:19 Dose: 1 applic Bisacodyl (Dulcolax -) 5 mg PO DAILY [facility] Last Admin: 06/21/18 09:34 Dose: 5 mg Collagenase (Santyl -) 1 applic TP DAILY [facility]; Protocol Last Admin: 06/21/18 13:19 Dose: 1 applic Ferrous Sulfate (Feosol -) 325 mg PO DAILY [facility] Last Admin: 06/21/18 09:34 Dose: 325 mg Ampicillin Sodium/Sulbactam (Sodium 3 gm/ Dextrose) 100 mls @ 200 mls/hr IVPB Q6H-IV YOAV Last Admin: 06/21/18 08:34 Dose: 200 mls/hr Vancomycin HCl 1,000 mg/ (Dextrose) 250 mls @ 166.667 mls/hr IVPB ONCE ONE; Protocol Stop: 06/21/18 15:28 Insulin Aspart (Novolog Vial Sliding Scale -) 1 vial SQ ACHS [facility]; Protocol Last Admin: 06/21/18 12:04 Dose: 2 units Insulin Detemir (Levemir Vial) 10 units SQ BID@0700,2200 [facility] Last Admin: 06/21/18 06:35 Dose: Not Given Lorazepam (Ativan -) 0.5 mg PO BID [facility] Last Admin: 06/21/18 09:34 Dose: 0.5 mg Ondansetron HCl (Zofran Injection) 4 mg IVPUSH Q6H PRN PRN Reason: NAUSEA Propranolol HCl (Inderal -) 40 mg PO BID [facility] Last Admin: 06/21/18 09:34 Dose: 40 mg Risperidone (Risperdal -) 0.25 mg PO BID [facility] Last Admin: 06/21/18 09:34 Dose: 0.25 mg - Objective Vital Signs: Vital Signs Temperature 98.4 F 06/21/18 07:53 Pulse Rate 72 06/21/18 07:53 Respiratory Rate 18 06/21/18 07:53 Blood Pressure 118/62 06/21/18 07:53 O2 Sat by Pulse Oximetry (%) 96 06/21/18 09:00 Constitutional: Yes: No Distress Cardiovascular: Yes: Regular Rate and Rhythm Respiratory: Yes: Regular Gastrointestinal: Yes: Normal Bowel Sounds, Soft Genitourinary: Yes: Tejeda Present Wound/Incision: Yes: Dressing Dry and Intact (b/l heel) Neurological: Yes: Alert Labs: CBC, BMP 06/21/18 07:09 06/21/18 12:50 Problem List - Problems (1) Decubitus ulcer of heel, bilateral, stage 3 Code(s): L89.613 - PRESSURE ULCER OF RIGHT HEEL, STAGE 3; L89.623 - PRESSURE ULCER OF LEFT HEEL, STAGE 3 (2) Gallstones Code(s): K80.20 - CALCULUS OF GALLBLADDER W/O CHOLECYSTITIS W/O OBSTRUCTION (3) AMILCAR (acute kidney injury) Code(s): N17.9 - ACUTE KIDNEY FAILURE, UNSPECIFIED (4) Bipolar 1 disorder Code(s): F31.9 - BIPOLAR DISORDER, UNSPECIFIED (5) Diabetes Code(s): E11.9 - TYPE 2 DIABETES MELLITUS WITHOUT COMPLICATIONS Qualifiers: Diabetes mellitus type: type 2 Diabetes mellitus ferry terminal agent insulin use: with ferry terminal agent use Diabetes mellitus complication status: with skin complications Diabetes mellitus complication detail: with foot ulcer Qualified Code(s): E11.621 - Type 2 diabetes mellitus with foot ulcer; L97.509 - Non-pressure chronic ulcer of other part of unspecified foot with unspecified severity; Z79.4 - intermediate (current) use of insulin (6) History of DVT (deep vein thrombosis) Code(s): Z86.718 - PERSONAL HISTORY OF OTHER VENOUS THROMBOSIS AND EMBOLISM Assessment/Plan Infected Rt heel DU s/p debridement AMILCAR DM HTN HLD -- Vancomycin x 1 dose today, continue Unasyn -- continue monitor renal function -- continue wound care, offloading
[2018-06-21] MEDS ORDERED: VANCOMYCIN 1 GRAM (PRE-DOCKED) 1,000 MG/250 ML BAG IVPB ONE (15:00)
[2018-06-21] MEDS: SODIUM CHLORIDE 500 ML IV STA ×2 (16:06→18:55)
--- NOTE | 2018-06-21 16:51 | PN ---
Progress Note, Physician History of Present Illness: Pt seen and examined at bedside. She had a responce to desmospressin. She is awake and alert. - Current Medication List Current Medications: Active Medications Acetaminophen (Tylenol -) 650 mg PO Q4H PRN PRN Reason: FEVER Last Admin: 06/18/18 17:43 Dose: 650 mg Apixaban (Eliquis -) 2.5 mg PO BID [facility] Last Admin: 06/21/18 09:34 Dose: 2.5 mg Ascorbic Acid (Vitamin C -) 500 mg PO DAILY [facility] Last Admin: 06/21/18 09:34 Dose: 500 mg Bacitracin (Bacitracin -) 1 applic TP BID [facility] Last Admin: 06/21/18 13:19 Dose: 1 applic Bisacodyl (Dulcolax -) 5 mg PO DAILY [facility] Last Admin: 06/21/18 09:34 Dose: 5 mg Collagenase (Santyl -) 1 applic TP DAILY [facility]; Protocol Last Admin: 06/21/18 13:19 Dose: 1 applic Ferrous Sulfate (Feosol -) 325 mg PO DAILY [facility] Last Admin: 06/21/18 09:34 Dose: 325 mg Ampicillin Sodium/Sulbactam (Sodium 3 gm/ Dextrose) 100 mls @ 200 mls/hr IVPB Q6H-IV [facility] Last Admin: 06/21/18 14:47 Dose: 200 mls/hr Insulin Aspart (Novolog Vial Sliding Scale -) 1 vial SQ ACHS [facility]; Protocol Last Admin: 06/21/18 12:04 Dose: 2 units Insulin Detemir (Levemir Vial) 10 units SQ BID@0700,2200 [facility] Last Admin: 06/21/18 06:35 Dose: Not Given Lorazepam (Ativan -) 0.5 mg PO BID [facility] Last Admin: 06/21/18 09:34 Dose: 0.5 mg Ondansetron HCl (Zofran Injection) 4 mg IVPUSH Q6H PRN PRN Reason: NAUSEA Propranolol HCl (Inderal -) 40 mg PO BID [facility] Last Admin: 06/21/18 09:34 Dose: 40 mg Risperidone (Risperdal -) 0.25 mg PO BID [facility] Last Admin: 06/21/18 09:34 Dose: 0.25 mg - Objective Vital Signs: Vital Signs Temperature 98.5 F 06/21/18 15:52 Pulse Rate 79 06/21/18 15:52 Respiratory Rate 18 06/21/18 15:52 Blood Pressure 148/51 L 06/21/18 15:52 O2 Sat by Pulse Oximetry (%) 96 06/21/18 09:00 Constitutional: Yes: Calm Eyes: Yes: Conjunctiva Clear HENT: Yes: Atraumatic Neck: Yes: Supple Cardiovascular: Yes: S1, S2 Respiratory: Yes: CTA Bilaterally Gastrointestinal: Yes: Normal Bowel Sounds, Soft Genitourinary: Yes: Tejeda Present Musculoskeletal: Yes: Muscle Weakness Edema: No Neurological: Yes: Oriented Psychiatric: Yes: Oriented Labs: CBC, BMP 06/21/18 07:09 06/21/18 12:50 Problem List - Problems (1) Acute hypernatremia Code(s): E87.0 - HYPEROSMOLALITY AND HYPERNATREMIA (2) HTN (hypertension) Code(s): I10 - ESSENTIAL (PRIMARY) HYPERTENSION Qualifiers: Hypertension type: essential hypertension Qualified Code(s): I10 - Essential (primary) hypertension Assessment/Plan Current Medications Generic Name Dose Route Start Last Admin Trade Name Freq PRN Reason Stop Dose Admin Acetaminophen 650 mg 06/16/18 00:21 06/18/18 17:43 Tylenol - PO 650 mg Q4H PRN Administration FEVER Apixaban 2.5 mg 06/16/18 10:00 06/21/18 09:34 Eliquis - PO 2.5 mg BID YOAV Administration Ascorbic Acid 500 mg 06/16/18 10:00 06/21/18 09:34 Vitamin C - PO 500 mg DAILY YOAV Administration Bacitracin 1 applic 06/16/18 10:00 06/21/18 13:19 Bacitracin - TP 1 applic BID YOAV Administration Bisacodyl 5 mg 06/16/18 10:00 06/21/18 09:34 Dulcolax - PO 5 mg DAILY YOAV Administration Collagenase 1 applic 06/16/18 10:00 06/21/18 13:19 Santyl - TP 1 applic DAILY YOAV Administration Protocol Ferrous Sulfate 325 mg 06/16/18 10:00 06/21/18 09:34 Feosol - PO 325 mg DAILY YOAV Administration Ampicillin Sodium/Sulbactam 100 mls @ 200 mls/hr 06/16/18 21:00 06/21/18 14: 47 Sodium 3 gm/ Dextrose IVPB 200 mls/hr Q6H-IV YOAV Administration Insulin Aspart 1 vial 06/16/18 07:00 06/21/18 12:04 Novolog Vial Sliding Scale - SQ 2 units ACHS YOAV Administration Protocol Insulin Detemir 10 units 06/17/18 22:00 06/21/18 06:35 Levemir Vial SQ Not Given BID@0700,2200 [facility] Lorazepam 0.5 mg 06/16/18 10:00 06/21/18 09:34 Ativan - PO 0.5 mg BID YOAV Administration Ondansetron HCl 4 mg 06/16/18 00:21 Zofran Injection IVPUSH Q6H PRN NAUSEA Propranolol HCl 40 mg 06/16/18 10:00 06/21/18 09:34 Inderal - PO 40 mg BID YOAV Administration Risperidone 0.25 mg 06/16/18 10:00 06/21/18 09:34 Risperdal - PO 0.25 mg BID YOAV Administration Impression 1. Hypernatremia 2. bipolar 3. DM 4. HTN 5. DVT 6. glucosuria 7. DI Plan - repeat labs in am - sodium is improving - will evaluate for desmopressin tomorrow - monitor urine output - avoid hyperglycemia - will follow Dr Bhagat
[2018-06-21] MEDS ORDERED: INSULIN (NOVOLOG) ASPART 100 UNITS/ML 10ML VIAL ONE (21:55)
[2018-06-22] MEDS: AMPICILLIN NA/SULBACTAM NA 3 GM in DEXTROSE 5%-WATER 100 ML IVPB SCH ×4 (02:47→22:00)
[2018-06-22] MEDS: INSULIN SLIDING SCALE (NOVOLOG) 1 VIAL SQ SCH ×4 (06:24→22:02)
[2018-06-22] MEDS: INSULIN (LEVEMIR) 100 UNITS/ML UNITS SQ SCH ×2 (06:49→22:01)
[2018-06-22 07:46] LABS: BASO % 0.7 % (0-2.0); EOS % 7.8 % (0-4.5); LYMPH % 28.5 % (8-40); MCH 27.6 pg (25.7-33.7); MCHC 30.5 g/dl (32.0-36.0); MEAN CELL VOLUME 90.4 fl (80-96); MEAN PLT VOLUME 8.7 fl (7.5-11.1); MONO % 9.3 % (3.8-10.2); NEUT % 53.7 % (42.8-82.8); PLATELET COUNT 321 K/MM3 (134-434); RBC 2.54 M/mm3 (3.60-5.2); RDW 19.4 % (11.6-15.6); WHITE BLOOD COUNT 6.2 K/mm3 (4.0-10.0)
[2018-06-22 08:07] LABS: ANION GAP 8 MMOL/L (8-16); BLOOD UREA NITROGEN 17 mg/dL (7-18); CALCIUM 8.2 mg/dL (8.5-10.1); CHLORIDE 117 mmol/L (98-107); CO2 24 mmol/L (21-32); CREATININE 1.4 mg/dL (0.55-1.3); GLUCOSE,RANDOM 80 mg/dL (74-106); POTASSIUM 4.3 mmol/L (3.5-5.1); SODIUM 149 mmol/L (136-145)
[2018-06-22] MEDS ORDERED: DESMOPRESSIN ACETATE 0.2 MG TABLET PO ONE (09:45)
--- NOTE | 2018-06-22 10:40 | PN ---
Progress Note, Physician Chief Complaint: No new complaints, hemodynamically stable and afebrile, rpisodes of Hypoglycemia History of Present Illness: 73 year old female who was sent in from [facility] with worsening heel ulceration and failure to thrive. She was recently admitted for sepsis and AMILCAR secondary to sacral ulceration last month. She is being followed by wound care in [facility], however her heel ulcers have progressed. - Current Medication List Current Medications: Active Medications Acetaminophen (Tylenol -) 650 mg PO Q4H PRN PRN Reason: FEVER Last Admin: 06/18/18 17:43 Dose: 650 mg Apixaban (Eliquis -) 2.5 mg PO BID [facility] Last Admin: 06/21/18 21:58 Dose: 2.5 mg Ascorbic Acid (Vitamin C -) 500 mg PO DAILY [facility] Last Admin: 06/21/18 09:34 Dose: 500 mg Bacitracin (Bacitracin -) 1 applic TP BID [facility] Last Admin: 06/21/18 21:45 Dose: 1 applic Bisacodyl (Dulcolax -) 5 mg PO DAILY [facility] Last Admin: 06/21/18 09:34 Dose: 5 mg Collagenase (Santyl -) 1 applic TP DAILY [facility]; Protocol Last Admin: 06/21/18 13:19 Dose: 1 applic Ferrous Sulfate (Feosol -) 325 mg PO DAILY [facility] Last Admin: 06/21/18 09:34 Dose: 325 mg Ampicillin Sodium/Sulbactam (Sodium 3 gm/ Dextrose) 100 mls @ 200 mls/hr IVPB Q6H-IV [facility] Last Admin: 06/22/18 02:47 Dose: 200 mls/hr Insulin Aspart (Novolog Vial Sliding Scale -) 1 vial SQ ACHS [facility]; Protocol Last Admin: 06/22/18 06:24 Dose: Not Given Insulin Detemir (Levemir Vial) 10 units SQ BID@0700,2200 [facility] Last Admin: 06/22/18 06:49 Dose: Not Given Lorazepam (Ativan -) 0.5 mg PO BID [facility] Last Admin: 06/21/18 21:58 Dose: 0.5 mg Ondansetron HCl (Zofran Injection) 4 mg IVPUSH Q6H PRN PRN Reason: NAUSEA Propranolol HCl (Inderal -) 40 mg PO BID [facility] Last Admin: 06/21/18 21:44 Dose: 40 mg Risperidone (Risperdal -) 0.25 mg PO BID [facility] Last Admin: 06/21/18 21:43 Dose: 0.25 mg - Objective Vital Signs: Vital Signs Temperature 98.8 F 06/22/18 08:53 Pulse Rate 73 06/22/18 08:53 Respiratory Rate 20 06/22/18 08:53 Blood Pressure 131/58 L 06/22/18 08:53 O2 Sat by Pulse Oximetry (%) 96 06/21/18 09:00 Constitutional: Not in distress comfortable HEENT: MM moist anemia, PERRLA EOMI Cardiovascular: Regular Rate and Rhythm. No: Gallop, Murmur, Rub Respiratory: Yes: CTA Bilaterally. No: Rales, Rhonchi, Wheezes Gastrointestinal: Normal Bowel Sounds, Soft. No: Distention, Tenderness Extremities: Yes: Other (feet wrapped) Integumentary: Yes: Pressure Ulcer Labs: CBC, BMP 06/22/18 07:20 06/22/18 07:20 Problem List - Problems (1) Decubitus ulcer of heel, bilateral, stage 3 Assessment/Plan: Infected evaluated by ID and Wound care cont current abx and wound care, remained afebrile Code(s): L89.613 - PRESSURE ULCER OF RIGHT HEEL, STAGE 3; L89.623 - PRESSURE ULCER OF LEFT HEEL, STAGE 3 (2) Multiple open wounds Assessment/Plan: nfected evaluated by ID and Wound care cont current abx and wound care Code(s): T07.XXXA - UNSPECIFIED MULTIPLE INJURIES, INITIAL ENCOUNTER (3) Stage 4 skin ulcer of sacral region Assessment/Plan: infected evaluated by ID and Wound care cont current abx and wound care Code(s): L98.429 - NON-PRESSURE CHRONIC ULCER OF BACK WITH UNSPECIFIED SEVERITY (4) Anemia Assessment/Plan: HB 7.0 no active beeding will consider i unit PRBC if further deop in H/H anemia w/u Code(s): D64.9 - ANEMIA, UNSPECIFIED Qualifiers: Chronic kidney disease stage: unspecified stage (5) CKD (chronic kidney disease) Assessment/Plan: Renal function are stable Code(s): N18.9 - CHRONIC KIDNEY DISEASE, UNSPECIFIED Qualifiers: Chronic kidney disease stage: stage 2 (mild) Qualified Code(s): N18.2 - Chronic kidney disease, stage 2 (mild) (6) Diabetes Assessment/Plan: Episode of Hypoglycemia will decrese PM Lantus dose Code(s): E11.9 - TYPE 2 DIABETES MELLITUS WITHOUT COMPLICATIONS Qualifiers: Diabetes mellitus type: type 2 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: with 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 use Diabetes mellitus complication status: with skin complications Diabetes mellitus complication detail: with foot ulcer Qualified Code(s): E11.621 - Type 2 diabetes mellitus with foot ulcer; L97.509 - Non-pressure chronic ulcer of other part of unspecified foot with unspecified severity; Z79.4 - group home (current) use of insulin (7) Functional quadriplegia Assessment/Plan: at base line no active issue Code(s): R53.2 - FUNCTIONAL QUADRIPLEGIA (8) HLD (hyperlipidemia) Assessment/Plan: cont Statin Code(s): E78.5 - HYPERLIPIDEMIA, UNSPECIFIED (9) HTN (hypertension) Assessment/Plan: well controlled cont all home meds Code(s): I10 - ESSENTIAL (PRIMARY) HYPERTENSION Qualifiers: Hypertension type: essential hypertension Qualified Code(s): I10 - Essential (primary) hypertension (10) History of DVT (deep vein thrombosis) Assessment/Plan: Chronic on Ac Code(s): Z86.718 - PERSONAL HISTORY OF OTHER VENOUS THROMBOSIS AND EMBOLISM (11) Sepsis Assessment/Plan: Improving on IV abx Code(s): A41.9 - SEPSIS, UNSPECIFIED ORGANISM (12) Gallstones Assessment/Plan: No active issue evaluated By GI Code(s): K80.20 - CALCULUS OF GALLBLADDER W/O CHOLECYSTITIS W/O OBSTRUCTION
[2018-06-22] MEDS ORDERED: PT OWN MED DRAWER 7, Y5N ONE ×3 (11:15→18:02)
[2018-06-22] MEDS: ASCORBIC ACID 500 MG TABLET (FP) PO SCH (11:19)
[2018-06-22] MEDS: APIXABAN 2.5 MG TABLET PO SCH ×2 (11:19→22:00)
[2018-06-22] MEDS: LORazepam 0.5 MG TABLET PO SCH ×2 (11:19→22:00)
[2018-06-22] MEDS: risperiDONE 0.25 MG TABLET (FP) PO SCH ×2 (11:19→22:01)
[2018-06-22] MEDS: BISACODYL 5 MG TABLET.DR (FP) PO SCH (11:19)
[2018-06-22] MEDS: FERROUS SO4 325 MG TABLET (FP) PO SCH (11:19)
--- NOTE | 2018-06-22 13:17 | PN ---
Progress Note, Physician History of Present Illness: afebrile stable awaiting reports no complaints - Current Medication List Current Medications: Active Medications Acetaminophen (Tylenol -) 650 mg PO Q4H PRN PRN Reason: FEVER Last Admin: 06/18/18 17:43 Dose: 650 mg Apixaban (Eliquis -) 2.5 mg PO BID [facility] Last Admin: 06/22/18 11:19 Dose: 2.5 mg Ascorbic Acid (Vitamin C -) 500 mg PO DAILY [facility] Last Admin: 06/22/18 11:19 Dose: 500 mg Bacitracin (Bacitracin -) 1 applic TP BID [facility] Last Admin: 06/21/18 21:45 Dose: 1 applic Bisacodyl (Dulcolax -) 5 mg PO DAILY [facility] Last Admin: 06/22/18 11:19 Dose: 5 mg Collagenase (Santyl -) 1 applic TP DAILY [facility]; Protocol Last Admin: 06/21/18 13:19 Dose: 1 applic Ferrous Sulfate (Feosol -) 325 mg PO DAILY [facility] Last Admin: 06/22/18 11:19 Dose: 325 mg Ampicillin Sodium/Sulbactam (Sodium 3 gm/ Dextrose) 100 mls @ 200 mls/hr IVPB Q6H-IV [facility] Last Admin: 06/22/18 11:18 Dose: 200 mls/hr Insulin Aspart (Novolog Vial Sliding Scale -) 1 vial SQ ACHS [facility]; Protocol Last Admin: 06/22/18 11:42 Dose: Not Given Insulin Detemir (Levemir Vial) 6 units SQ BID@0700,2200 [facility] Lorazepam (Ativan -) 0.5 mg PO BID [facility] Last Admin: 06/22/18 11:19 Dose: 0.5 mg Ondansetron HCl (Zofran Injection) 4 mg IVPUSH Q6H PRN PRN Reason: NAUSEA Propranolol HCl (Inderal -) 40 mg PO BID [facility] Last Admin: 06/22/18 11:20 Dose: 40 mg Risperidone (Risperdal -) 0.25 mg PO BID [facility] Last Admin: 06/22/18 11:19 Dose: 0.25 mg - Objective Vital Signs: Vital Signs Temperature 98.8 F 06/22/18 08:53 Pulse Rate 73 06/22/18 08:53 Respiratory Rate 20 06/22/18 08:53 Blood Pressure 131/58 L 06/22/18 08:53 O2 Sat by Pulse Oximetry (%) 96 06/21/18 09:00 Constitutional: Yes: No Distress, Calm Cardiovascular: Yes: Regular Rate and Rhythm Respiratory: Yes: Regular, CTA Bilaterally Gastrointestinal: Yes: Normal Bowel Sounds, Soft Musculoskeletal: Yes: WNL Extremities: Yes: Other Wound/Incision: Yes: Dressing Dry and Intact Neurological: Yes: Alert, Oriented Psychiatric: Yes: Alert, Oriented Labs: CBC, BMP 06/22/18 07:20 06/22/18 07:20 Assessment/Plan Problem List - Problems (1) Decubitus ulcer of heel, bilateral, stage 3 Code(s): L89.613 - PRESSURE ULCER OF RIGHT HEEL, STAGE 3; L89.623 - PRESSURE ULCER OF LEFT HEEL, STAGE 3 (2) Transaminitis Code(s): R74.0 - NONSPEC ELEV OF LEVELS OF TRANSAMNS & LACTIC ACID DEHYDRGNSE (3) History of DVT (deep vein thrombosis) Code(s): Z86.718 - PERSONAL HISTORY OF OTHER VENOUS THROMBOSIS AND EMBOLISM (4) Bipolar 1 disorder Code(s): F31.9 - BIPOLAR DISORDER, UNSPECIFIED (5) Functional quadriplegia Code(s): R53.2 - FUNCTIONAL QUADRIPLEGIA (6) HTN (hypertension) Code(s): I10 - ESSENTIAL (PRIMARY) HYPERTENSION Qualifiers: Hypertension type: essential hypertension Qualified Code(s): I10 - Essential (primary) hypertension (7) Lactic acidosis Code(s): E87.2 - ACIDOSIS (8) Diabetes Code(s): E11.9 - TYPE 2 DIABETES MELLITUS WITHOUT COMPLICATIONS Qualifiers: Diabetes mellitus type: type 2 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
[2018-06-22] MEDS: COLLAGENASE CLOSTRIDIUM HIST. 30 GRAMS TUBE TP SCH (15:44)
[2018-06-22] MEDS: BACITRACIN 15 GM TUBE TOPICAL OINTMENT TP SCH ×2 (15:44→22:07)
[2018-06-22] MEDS ORDERED: DESMOPRESSIN ACETATE 0.1 MG TABLET PO ONE (16:45)
--- NOTE | 2018-06-22 16:45 | PN ---
Progress Note, Physician History of Present Illness: Pt seen and examined at bedside. She is awake and alert. She feels thirsty. - Current Medication List Current Medications: Active Medications Acetaminophen (Tylenol -) 650 mg PO Q4H PRN PRN Reason: FEVER Last Admin: 06/18/18 17:43 Dose: 650 mg Apixaban (Eliquis -) 2.5 mg PO BID [facility] Last Admin: 06/22/18 11:19 Dose: 2.5 mg Ascorbic Acid (Vitamin C -) 500 mg PO DAILY [facility] Last Admin: 06/22/18 11:19 Dose: 500 mg Bacitracin (Bacitracin -) 1 applic TP BID [facility] Last Admin: 06/22/18 15:44 Dose: 1 applic Bisacodyl (Dulcolax -) 5 mg PO DAILY [facility] Last Admin: 06/22/18 11:19 Dose: 5 mg Collagenase (Santyl -) 1 applic TP DAILY [facility]; Protocol Last Admin: 06/22/18 15:44 Dose: 1 applic Ferrous Sulfate (Feosol -) 325 mg PO DAILY [facility] Last Admin: 06/22/18 11:19 Dose: 325 mg Ampicillin Sodium/Sulbactam (Sodium 3 gm/ Dextrose) 100 mls @ 200 mls/hr IVPB Q6H-IV [facility] Last Admin: 06/22/18 16:12 Dose: 200 mls/hr Insulin Aspart (Novolog Vial Sliding Scale -) 1 vial SQ ACHS [facility]; Protocol Last Admin: 06/22/18 11:42 Dose: Not Given Insulin Detemir (Levemir Vial) 6 units SQ BID@0700,2200 [facility] Lorazepam (Ativan -) 0.5 mg PO BID [facility] Last Admin: 06/22/18 11:19 Dose: 0.5 mg Ondansetron HCl (Zofran Injection) 4 mg IVPUSH Q6H PRN PRN Reason: NAUSEA Propranolol HCl (Inderal -) 40 mg PO BID [facility] Last Admin: 06/22/18 11:20 Dose: 40 mg Risperidone (Risperdal -) 0.25 mg PO BID [facility] Last Admin: 06/22/18 11:19 Dose: 0.25 mg - Objective Vital Signs: Vital Signs Temperature 98.4 F 06/22/18 14:57 Pulse Rate 84 06/22/18 14:57 Respiratory Rate 20 06/22/18 14:57 Blood Pressure 119/52 L 06/22/18 14:57 O2 Sat by Pulse Oximetry (%) 96 06/21/18 09:00 Constitutional: Yes: Calm Eyes: Yes: Conjunctiva Clear HENT: Yes: Atraumatic Cardiovascular: Yes: S1, S2 Respiratory: Yes: CTA Bilaterally Gastrointestinal: Yes: Soft Genitourinary: Yes: Tejeda Present, Polyuria Musculoskeletal: Yes: Muscle Weakness Edema: No Wound/Incision: Yes: Dressing Removed Neurological: Yes: Oriented Psychiatric: Yes: Oriented Labs: CBC, BMP 06/22/18 07:20 06/22/18 07:20 Problem List - Problems (1) Acute hypernatremia Code(s): E87.0 - HYPEROSMOLALITY AND HYPERNATREMIA (2) HTN (hypertension) Code(s): I10 - ESSENTIAL (PRIMARY) HYPERTENSION Qualifiers: Hypertension type: essential hypertension Qualified Code(s): I10 - Essential (primary) hypertension Assessment/Plan Current Medications Generic Name Dose Route Start Last Admin Trade Name Freq PRN Reason Stop Dose Admin Acetaminophen 650 mg 06/16/18 00:21 06/18/18 17:43 Tylenol - PO 650 mg Q4H PRN Administration FEVER Apixaban 2.5 mg 06/16/18 10:00 06/22/18 11:19 Eliquis - PO 2.5 mg BID [facility] Administration Ascorbic Acid 500 mg 06/16/18 10:00 06/22/18 11:19 Vitamin C - PO 500 mg DAILY [facility] Administration Bacitracin 1 applic 06/16/18 10:00 06/22/18 15:44 Bacitracin - TP 1 applic BID [facility] Administration Bisacodyl 5 mg 06/16/18 10:00 06/22/18 11:19 Dulcolax - PO 5 mg DAILY [facility] Administration Collagenase 1 applic 06/16/18 10:00 06/22/18 15:44 Santyl - TP 1 applic DAILY [facility] Administration Protocol Ferrous Sulfate 325 mg 06/16/18 10:00 06/22/18 11:19 Feosol - PO 325 mg DAILY [facility] Administration Ampicillin Sodium/Sulbactam 100 mls @ 200 mls/hr 06/16/18 21:00 06/22/18 16: 12 Sodium 3 gm/ Dextrose IVPB 200 mls/hr Q6H-IV [facility] Administration Insulin Aspart 1 vial 06/16/18 07:00 06/22/18 11:42 Novolog Vial Sliding Scale - SQ Not Given ACHS [facility] Protocol Insulin Detemir 6 units 06/22/18 22:00 Levemir Vial SQ BID@0700,2200 [facility] Lorazepam 0.5 mg 06/16/18 10:00 06/22/18 11:19 Ativan - PO 0.5 mg BID [facility] Administration Ondansetron HCl 4 mg 06/16/18 00:21 Zofran Injection IVPUSH Q6H PRN NAUSEA Propranolol HCl 40 mg 06/16/18 10:00 06/22/18 11:20 Inderal - PO 40 mg BID [facility] Administration Risperidone 0.25 mg 06/16/18 10:00 06/22/18 11:19 Risperdal - PO 0.25 mg BID [facility] Administration Impression 1. Hypernatremia 2. bipolar 3. DM 4. HTN 5. DVT 6. glucosuria 7. DI Plan - pt had minimal responce to PO desmopressin, will give 1 mg - monitor urine output - monitor sodium - will follow - avoid hyperglycemia - cont wound care Dr Bhagat
[2018-06-23] MEDS: AMPICILLIN NA/SULBACTAM NA 3 GM in DEXTROSE 5%-WATER 100 ML IVPB SCH ×2 (02:38→10:23)
[2018-06-23] MEDS: INSULIN SLIDING SCALE (NOVOLOG) 1 VIAL SQ SCH ×4 (06:19→21:20)
[2018-06-23] MEDS: INSULIN (LEVEMIR) 100 UNITS/ML UNITS SQ SCH ×2 (06:19→21:19)
[2018-06-23 06:53] LABS: BASO % 0.7 % (0-2.0); EOS % 7.1 % (0-4.5); HEMATOCRIT 22.7 % (32.4-45.2); LYMPH % 32.9 % (8-40); MCH 27.5 pg (25.7-33.7); MCHC 30.7 g/dl (32.0-36.0); MEAN CELL VOLUME 89.5 fl (80-96); MEAN PLT VOLUME 8.8 fl (7.5-11.1); MONO % 10.6 % (3.8-10.2); NEUT % 48.7 % (42.8-82.8); PLATELET COUNT 326 K/MM3 (134-434); RBC 2.53 M/mm3 (3.60-5.2); RDW 19.1 % (11.6-15.6); WHITE BLOOD COUNT 6.1 K/mm3 (4.0-10.0)
[2018-06-23 07:18] LABS: ANION GAP 7 MMOL/L (8-16); BLOOD UREA NITROGEN 17 mg/dL (7-18); CALCIUM 8.5 mg/dL (8.5-10.1); CHLORIDE 116 mmol/L (98-107); CO2 25 mmol/L (21-32); CREATININE 1.4 mg/dL (0.55-1.3); GLUCOSE,RANDOM 126 mg/dL (74-106); POTASSIUM 4.2 mmol/L (3.5-5.1); SODIUM 147 mmol/L (136-145)
--- NOTE | 2018-06-23 08:17 | PN ---
Progress Note, Physician Chief Complaint: No new complaints, hemodynamically stable and afebrile History of Present Illness: 73 year old female who was sent in from [facility] with worsening heel ulceration and failure to thrive. She was recently admitted for sepsis and AMILCAR secondary to sacral ulceration last month. She is being followed by wound care in [facility], however her heel ulcers have progressed. - Current Medication List Current Medications: Active Medications Acetaminophen (Tylenol -) 650 mg PO Q4H PRN PRN Reason: FEVER Last Admin: 06/18/18 17:43 Dose: 650 mg Apixaban (Eliquis -) 2.5 mg PO BID [facility] Last Admin: 06/22/18 22:00 Dose: 2.5 mg Ascorbic Acid (Vitamin C -) 500 mg PO DAILY [facility] Last Admin: 06/22/18 11:19 Dose: 500 mg Bacitracin (Bacitracin -) 1 applic TP BID [facility] Last Admin: 06/22/18 22:07 Dose: 1 applic Bisacodyl (Dulcolax -) 5 mg PO DAILY [facility] Last Admin: 06/22/18 11:19 Dose: 5 mg Collagenase (Santyl -) 1 applic TP DAILY [facility]; Protocol Last Admin: 06/22/18 15:44 Dose: 1 applic Ferrous Sulfate (Feosol -) 325 mg PO DAILY [facility] Last Admin: 06/22/18 11:19 Dose: 325 mg Ampicillin Sodium/Sulbactam (Sodium 3 gm/ Dextrose) 100 mls @ 200 mls/hr IVPB Q6H-IV [facility] Last Admin: 06/23/18 02:38 Dose: 200 mls/hr Insulin Aspart (Novolog Vial Sliding Scale -) 1 vial SQ ACHS [facility]; Protocol Last Admin: 06/23/18 06:19 Dose: Not Given Insulin Detemir (Levemir Vial) 6 units SQ BID@0700,2200 [facility] Last Admin: 06/23/18 06:19 Dose: 6 units Lorazepam (Ativan -) 0.5 mg PO BID [facility] Last Admin: 06/22/18 22:00 Dose: 0.5 mg Ondansetron HCl (Zofran Injection) 4 mg IVPUSH Q6H PRN PRN Reason: NAUSEA Propranolol HCl (Inderal -) 40 mg PO BID [facility] Last Admin: 06/22/18 22:01 Dose: 40 mg Risperidone (Risperdal -) 0.25 mg PO BID [facility] Last Admin: 06/22/18 22:01 Dose: 0.25 mg - Objective Vital Signs: Vital Signs Temperature 98.5 F 06/23/18 07:16 Pulse Rate 83 06/23/18 07:16 Respiratory Rate 21 H 06/23/18 07:16 Blood Pressure 121/60 06/23/18 07:16 O2 Sat by Pulse Oximetry (%) 97 06/22/18 21:00 Constitutional: Not in distress comfortable HEENT: MM moist anemia, PERRLA EOMI Cardiovascular: Regular Rate and Rhythm. No: Gallop, Murmur, Rub Respiratory: Yes: CTA Bilaterally. No: Rales, Rhonchi, Wheezes Gastrointestinal: Normal Bowel Sounds, Soft. No: Distention, Tenderness Extremities: Yes: Other (feet wrapped) Integumentary: Yes: Pressure Ulcer Labs: CBC, BMP 06/23/18 06:30 06/23/18 06:30 Problem List - Problems (1) Decubitus ulcer of heel, bilateral, stage 3 Assessment/Plan: Infected evaluated by ID and Wound care cont current abx and wound care, plan discussed with Id and wound care recommonded to [facility] on Clindamycun+Ampicillin+Ceftriiaxone Wound care F/U in 1 wk. 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 wants to observe over night HCTZ response on Polyuria Code(s): N18.9 - CHRONIC KIDNEY DISEASE, UNSPECIFIED Qualifiers: Chronic kidney disease stage: stage 2 (mild) Qualified Code(s): N18.2 - Chronic kidney disease, stage 2 (mild) (5) Diabetes Assessment/Plan: T2 with nephropathy optimize Glycemic control Code(s): E11.9 - TYPE 2 DIABETES MELLITUS WITHOUT COMPLICATIONS Qualifiers: Diabetes mellitus type: type 2 Diabetes 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 Diabetes mellitus complication status: with skin complications Diabetes mellitus complication detail: with foot ulcer Qualified Code(s): E11.621 - Type 2 diabetes mellitus with foot ulcer; L97.509 - Non-pressure chronic ulcer of other part of unspecified foot with unspecified severity; 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 (6) HLD (hyperlipidemia) Assessment/Plan: cont Statin Code(s): E78.5 - HYPERLIPIDEMIA, UNSPECIFIED (7) HTN (hypertension) Assessment/Plan: well controlled cont all home meds Code(s): I10 - ESSENTIAL (PRIMARY) HYPERTENSION Qualifiers: Hypertension type: essential hypertension Qualified Code(s): I10 - Essential (primary) hypertension (8) History of DVT (deep vein thrombosis) Assessment/Plan: Chronic on Ac Code(s): Z86.718 - PERSONAL HISTORY OF OTHER VENOUS THROMBOSIS AND EMBOLISM (9) Gallstones Assessment/Plan: No active issue evaluted By GI Code(s): K80.20 - CALCULUS OF GALLBLADDER W/O CHOLECYSTITIS W/O OBSTRUCTION (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 Code(s): Z71.89 - OTHER SPECIFIED COUNSELING
[2018-06-23] MEDS ORDERED: DESMOPRESSIN ACETATE 0.1 MG TABLET PO ONE ×2 (09:30→23:45)
[2018-06-23] MEDS ORDERED: DESMOPRESSIN ACETATE 0.2 MG TABLET PO ONE (09:45)
[2018-06-23] MEDS: APIXABAN 2.5 MG TABLET PO SCH ×2 (10:24→21:15)
[2018-06-23] MEDS: risperiDONE 0.25 MG TABLET (FP) PO SCH ×2 (10:24→22:04)
[2018-06-23] MEDS: ASCORBIC ACID 500 MG TABLET (FP) PO SCH (10:24)
[2018-06-23] MEDS: LORazepam 0.5 MG TABLET PO SCH ×2 (10:24→21:15)
[2018-06-23] MEDS: FERROUS SO4 325 MG TABLET (FP) PO SCH (10:24)
[2018-06-23] MEDS: BISACODYL 5 MG TABLET.DR (FP) PO SCH (10:24)
[2018-06-23] MEDS: BACITRACIN 15 GM TUBE TOPICAL OINTMENT TP SCH ×2 (10:27→21:16)
--- NOTE | 2018-06-23 11:28 | PN ---
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 Pt on reg diet/thin liquid. UGI noted. Pt chewing and tolerating reg diet, eatring about 1/2 per [employer]. She is drinking a lot, often drinking Glucerna before she eats. Suggest holding back liquids/Glucerna until she eats more of food on tray. Monitor tolerance and acceptance.
--- NOTE | 2018-06-23 12:45 | PN ---
Progress Note, Physician History of Present Illness: patient stable no issues all cx reports noted patient with heel ulcer all imaging studies noted - Current Medication List Current Medications: Active Medications Acetaminophen (Tylenol -) 650 mg PO Q4H PRN PRN Reason: FEVER Last Admin: 06/18/18 17:43 Dose: 650 mg Amoxicillin/Clavulanate Potassium (Augmentin - 500mg Tablet) 1 tab PO BID@0800, 1730 [facility] Apixaban (Eliquis -) 2.5 mg PO BID [facility] Last Admin: 06/23/18 10:24 Dose: 2.5 mg Ascorbic Acid (Vitamin C -) 500 mg PO DAILY [facility] Last Admin: 06/23/18 10:24 Dose: 500 mg Bacitracin (Bacitracin -) 1 applic TP BID [facility] Last Admin: 06/23/18 10:27 Dose: 1 applic Bisacodyl (Dulcolax -) 5 mg PO DAILY [facility] Last Admin: 06/23/18 10:24 Dose: 5 mg Clindamycin HCl (Cleocin -) 300 mg PO Q6HPO [facility] Collagenase (Santyl -) 1 applic TP DAILY [facility]; Protocol Last Admin: 06/22/18 15:44 Dose: 1 applic Ferrous Sulfate (Feosol -) 325 mg PO DAILY [facility] Last Admin: 06/23/18 10:24 Dose: 325 mg Insulin Aspart (Novolog Vial Sliding Scale -) [address] [facility]; Protocol Last Admin: 06/23/18 06:19 Dose: Not Given Insulin Detemir (Levemir Vial) 6 units SQ BID@0700,2200 [facility] Last Admin: 06/23/18 06:19 Dose: 6 units Lorazepam (Ativan -) 0.5 mg PO BID [facility] Last Admin: 06/23/18 10:24 Dose: 0.5 mg Ondansetron HCl (Zofran Injection) 4 mg IVPUSH Q6H PRN PRN Reason: NAUSEA Propranolol HCl (Inderal -) 40 mg PO BID [facility] Last Admin: 06/23/18 10:24 Dose: 40 mg Risperidone (Risperdal -) 0.25 mg PO BID [facility] Last Admin: 06/23/18 10:24 Dose: 0.25 mg - Objective Vital Signs: Vital Signs Temperature 98.5 F 06/23/18 07:16 Pulse Rate 83 06/23/18 07:16 Respiratory Rate 21 H 06/23/18 07:16 Blood Pressure 121/60 06/23/18 07:16 O2 Sat by Pulse Oximetry (%) 97 06/22/18 21:00 Constitutional: Yes: No Distress, Calm Cardiovascular: Yes: Regular Rate and Rhythm Respiratory: Yes: Regular, CTA Bilaterally Gastrointestinal: Yes: Normal Bowel Sounds, Soft Musculoskeletal: Yes: Other Extremities: Yes: Other Wound/Incision: Yes: Dressing Dry and Intact Neurological: Yes: Alert, Oriented Psychiatric: Yes: Alert, Oriented Labs: CBC, BMP 06/23/18 06:30 06/23/18 06:30 Assessment/Plan Problem List - Problems (1) Decubitus ulcer of heel, bilateral, stage 3 Code(s): L89.613 - PRESSURE ULCER OF RIGHT HEEL, STAGE 3; L89.623 - PRESSURE ULCER OF LEFT HEEL, STAGE 3 (2) Transaminitis Code(s): R74.0 - NONSPEC ELEV OF LEVELS OF TRANSAMNS & LACTIC ACID DEHYDRGNSE (3) History of DVT (deep vein thrombosis) Code(s): Z86.718 - PERSONAL HISTORY OF OTHER VENOUS THROMBOSIS AND EMBOLISM (4) Bipolar 1 disorder Code(s): F31.9 - BIPOLAR DISORDER, UNSPECIFIED (5) Functional quadriplegia Code(s): R53.2 - FUNCTIONAL QUADRIPLEGIA (6) HTN (hypertension) Code(s): I10 - ESSENTIAL (PRIMARY) HYPERTENSION Qualifiers: Hypertension type: essential hypertension Qualified Code(s): I10 - Essential (primary) hypertension (7) Lactic acidosis Code(s): E87.2 - ACIDOSIS (8) Diabetes Code(s): E11.9 - TYPE 2 DIABETES MELLITUS WITHOUT COMPLICATIONS Qualifiers: Diabetes mellitus type: type 2 Diabetes mellitus brush clearing laborer insulin use: with brush clearing laborer use Diabetes mellitus complication status: with skin complications Diabetes mellitus complication detail: with foot ulcer Qualified Code(s): E11.621 - Type 2 diabetes mellitus with foot ulcer; L97.509 - Non-pressure chronic ulcer of other part of unspecified foot with unspecified severity; Z79.4 - prison (current) use of insulin (9) Cough Code(s): R05 - COUGH plan will change to oral abx give ceftriaxone iv once ready to discharge the will switch completely to po wounds going to take a long time to heal wound care rest as per the team
--- NOTE | 2018-06-23 13:09 | PN ---
Progress Note, Physician History of Present Illness: Pt seen and examined at bedside. She is awake and alert. She denies shortness of breath. - Current Medication List Current Medications: Active Medications Acetaminophen (Tylenol -) 650 mg PO Q4H PRN PRN Reason: FEVER Last Admin: 06/18/18 17:43 Dose: 650 mg Amoxicillin/Clavulanate Potassium (Augmentin - 500mg Tablet) 1 tab PO BID@0800, 1730 [facility] Apixaban (Eliquis -) 2.5 mg PO BID [facility] Last Admin: 06/23/18 10:24 Dose: 2.5 mg Ascorbic Acid (Vitamin C -) 500 mg PO DAILY [facility] Last Admin: 06/23/18 10:24 Dose: 500 mg Bacitracin (Bacitracin -) 1 applic TP BID [facility] Last Admin: 06/23/18 10:27 Dose: 1 applic Bisacodyl (Dulcolax -) 5 mg PO DAILY [facility] Last Admin: 06/23/18 10:24 Dose: 5 mg Clindamycin HCl (Cleocin -) 300 mg PO Q6HPO [facility] Collagenase (Santyl -) 1 applic TP DAILY [facility]; Protocol Last Admin: 06/22/18 15:44 Dose: 1 applic Ferrous Sulfate (Feosol -) 325 mg PO DAILY [facility] Last Admin: 06/23/18 10:24 Dose: 325 mg Ceftriaxone Sodium 1 gm/ (Dextrose) 100 mls @ 200 mls/hr IVPB DAILY [facility]; Protocol Insulin Aspart (Novolog Vial Sliding Scale -) 1 vial SQ ACHS [facility]; Protocol Last Admin: 06/23/18 06:19 Dose: Not Given Insulin Detemir (Levemir Vial) 6 units SQ BID@0700,2200 [facility] Last Admin: 06/23/18 06:19 Dose: 6 units Lorazepam (Ativan -) 0.5 mg PO BID [facility] Last Admin: 06/23/18 10:24 Dose: 0.5 mg Ondansetron HCl (Zofran Injection) 4 mg IVPUSH Q6H PRN PRN Reason: NAUSEA Propranolol HCl (Inderal -) 40 mg PO BID [facility] Last Admin: 06/23/18 10:24 Dose: 40 mg Risperidone (Risperdal -) 0.25 mg PO BID [facility] Last Admin: 06/23/18 10:24 Dose: 0.25 mg - Objective Vital Signs: Vital Signs Temperature 98.5 F 06/23/18 07:16 Pulse Rate 83 06/23/18 07:16 Respiratory Rate 21 H 06/23/18 07:16 Blood Pressure 121/60 06/23/18 07:16 O2 Sat by Pulse Oximetry (%) 97 06/22/18 21:00 Constitutional: Yes: Calm Eyes: Yes: Conjunctiva Clear HENT: Yes: Atraumatic Cardiovascular: Yes: S1, S2 Respiratory: Yes: CTA Bilaterally Gastrointestinal: Yes: Soft Genitourinary: Yes: Tejeda Present, Polyuria Musculoskeletal: Yes: Muscle Weakness Edema: No Integumentary: Yes: Other (sacral decub) Neurological: Yes: Oriented Psychiatric: Yes: Oriented Labs: CBC, BMP 06/23/18 06:30 06/23/18 06:30 Problem List - Problems (1) Acute hypernatremia Code(s): E87.0 - HYPEROSMOLALITY AND HYPERNATREMIA (2) HTN (hypertension) Code(s): I10 - ESSENTIAL (PRIMARY) HYPERTENSION Qualifiers: Hypertension type: essential hypertension Qualified Code(s): I10 - Essential (primary) hypertension Assessment/Plan Current Medications Generic Name Dose Route Start Last Admin Trade Name Freq PRN Reason Stop Dose Admin Acetaminophen 650 mg 06/16/18 00:21 06/18/18 17:43 Tylenol - PO 650 mg Q4H PRN Administration FEVER Amoxicillin/Clavulanate Potassium 1 tab 06/23/18 17:30 Augmentin - 500mg Tablet PO BID@0800,1730 [facility] Apixaban 2.5 mg 06/16/18 10:00 06/23/18 10:24 Eliquis - PO 2.5 mg BID [facility] Administration Ascorbic Acid 500 mg 06/16/18 10:00 06/23/18 10:24 Vitamin C - PO 500 mg DAILY [facility] Administration Bacitracin 1 applic 06/16/18 10:00 06/23/18 10:27 Bacitracin - TP 1 applic BID [facility] Administration Bisacodyl 5 mg 06/16/18 10:00 06/23/18 10:24 Dulcolax - PO 5 mg DAILY [facility] Administration Clindamycin HCl 300 mg 06/23/18 18:00 Cleocin - PO Q6HPO [facility] Collagenase 1 applic 06/16/18 10:00 06/22/18 15:44 Santyl - TP 1 applic DAILY [facility] Administration Protocol Ferrous Sulfate 325 mg 06/16/18 10:00 06/23/18 10:24 Feosol - PO 325 mg DAILY [facility] Administration Ceftriaxone Sodium 1 gm/ 100 mls @ 200 mls/hr 06/23/18 12:45 Dextrose IVPB DAILY [facility] Protocol Insulin Aspart 1 vial 06/16/18 07:00 06/23/18 06:19 Novolog Vial Sliding Scale - SQ Not Given ACHS [facility] Protocol Insulin Detemir 6 units 06/22/18 22:00 06/23/18 06:19 Levemir Vial SQ 6 units BID@0700,2200 [facility] Administration Lorazepam 0.5 mg 06/16/18 10:00 06/23/18 10:24 Ativan - PO 0.5 mg BID [facility] Administration Ondansetron HCl 4 mg 06/16/18 00:21 Zofran Injection IVPUSH Q6H PRN NAUSEA Propranolol HCl 40 mg 06/16/18 10:00 06/23/18 10:24 Inderal - PO 40 mg BID [facility] Administration Risperidone 0.25 mg 06/16/18 10:00 06/23/18 10:24 Risperdal - PO 0.25 mg BID [facility] Administration Impression 1. Hypernatremia 2. bipolar 3. DM 4. HTN 5. DVT 6. glucosuria 7. DI Plan - sodium slowly improving - pt still polyuric - will give a thiazide - repeat labs in am - pt received a dose of desmopressin - will follow closely Dr Bhagat
[2018-06-23] MEDS ORDERED: HYDROCHLOROTHIAZIDE 25 MG TABLET (FP) PO ONE (13:30)
[2018-06-23] MEDS ORDERED: cefTRIAXone SODIUM 1 GM VIAL ONE (14:15)
[2018-06-23] MEDS ORDERED: DEXTROSE 5%-WATER - 50 ML IVPB ONE (14:15)
[2018-06-23] MEDS: CEFTRIAXONE 1 GM in DEXTROSE 5%-WATER - 50 ML IVPB SCH (14:19)
[2018-06-23] MEDS: COLLAGENASE CLOSTRIDIUM HIST. 30 GRAMS TUBE TP SCH (14:20)
--- NOTE | 2018-06-23 14:26 | PN ---
Progress Note (short form) - Note Progress Note: Podiatry Brief Note: 73 year old DM F with B/L stable heel pressure ulcers. Prognosis guarded for wound healing given the extent of ulceration to the heels in a non-ambulatory patient. Recommendation is continued conservative therapies including santyl and heel offloading. If the ulcers worsen will need operative debridement. Will follow in wound healing center in 1 week. Kyung Ramirez DPM
[2018-06-23] MEDS: CLINDAMYCIN HCL 150 MG CAPSULE (FP) PO SCH ×2 (17:25→23:54)
[2018-06-23] MEDS: AMOX TR/POT CLAV 500MG/125MG TABLETS (FP) PO SCH (17:25)
[2018-06-23] MEDS ORDERED: PT OWN MED DRAWER 7, Y5N ONE (20:51)
[2018-06-23] MEDS ORDERED: INSULIN (NOVOLOG) ASPART 100 UNITS/ML 10ML VIAL ONE (21:08)
[2018-06-24] MEDS: CLINDAMYCIN HCL 150 MG CAPSULE (FP) PO SCH ×4 (06:14→17:13)
[2018-06-24] MEDS: INSULIN SLIDING SCALE (NOVOLOG) 1 VIAL SQ SCH ×4 (06:30→21:23)
[2018-06-24] MEDS: INSULIN (LEVEMIR) 100 UNITS/ML UNITS SQ SCH ×2 (06:30→21:22)
[2018-06-24] MEDS ORDERED: INSULIN (NOVOLOG) ASPART 100 UNITS/ML 10ML VIAL ONE ×2 (06:35→21:20)
[2018-06-24 07:34] LABS: BASO % 0.3 % (0-2.0); EOS % 5.4 % (0-4.5); HEMATOCRIT 30.2 % (32.4-45.2); HEMOGLOBIN 9.5 GM/dL (10.7-15.3); LYMPH % 17.8 % (8-40); MCH 28.5 pg (25.7-33.7); MCHC 31.5 g/dl (32.0-36.0); MEAN CELL VOLUME 90.5 fl (80-96); MEAN PLT VOLUME 8.9 fl (7.5-11.1); MONO % 6.4 % (3.8-10.2); NEUT % 70.1 % (42.8-82.8); PLATELET COUNT 342 K/MM3 (134-434); RBC 3.34 M/mm3 (3.60-5.2); RDW 18.1 % (11.6-15.6); WHITE BLOOD COUNT 6.3 K/mm3 (4.0-10.0)
[2018-06-24 07:59] LABS: ANION GAP 8 MMOL/L (8-16); BLOOD UREA NITROGEN 21 mg/dL (7-18); CALCIUM 9.5 mg/dL (8.5-10.1); CHLORIDE 117 mmol/L (98-107); CO2 22 mmol/L (21-32); CREATININE 1.6 mg/dL (0.55-1.3); GLUCOSE,RANDOM 115 mg/dL (74-106); POTASSIUM 4.6 mmol/L (3.5-5.1); SODIUM 147 mmol/L (136-145)
[2018-06-24] MEDS ORDERED: DEXTROSE 5%-WATER - 50 ML IVPB ONE (09:17)
[2018-06-24] MEDS ORDERED: cefTRIAXone SODIUM 1 GM VIAL ONE (09:17)
[2018-06-24] MEDS: LORazepam 0.5 MG TABLET PO SCH ×2 (09:49→21:21)
[2018-06-24] MEDS: APIXABAN 2.5 MG TABLET PO SCH ×2 (09:49→21:21)
[2018-06-24] MEDS: BISACODYL 5 MG TABLET.DR (FP) PO SCH (09:49)
[2018-06-24] MEDS: risperiDONE 0.25 MG TABLET (FP) PO SCH ×2 (09:49→21:22)
[2018-06-24] MEDS: FERROUS SO4 325 MG TABLET (FP) PO SCH (09:49)
[2018-06-24] MEDS: AMOX TR/POT CLAV 500MG/125MG TABLETS (FP) PO SCH ×2 (09:49→17:08)
[2018-06-24] MEDS: ASCORBIC ACID 500 MG TABLET (FP) PO SCH (09:49)
[2018-06-24] MEDS: CEFTRIAXONE 1 GM in DEXTROSE 5%-WATER - 50 ML IVPB SCH (09:50)
[2018-06-24] MEDS: BACITRACIN 15 GM TUBE TOPICAL OINTMENT TP SCH ×2 (09:50→21:21)
[2018-06-24] MEDS: COLLAGENASE CLOSTRIDIUM HIST. 30 GRAMS TUBE TP SCH (09:51)
--- NOTE | 2018-06-24 11:03 | PN ---
Progress Note, Physician History of Present Illness: patient has loose bowel movement first time no other complaints - Current Medication List Current Medications: Active Medications Acetaminophen (Tylenol -) 650 mg PO Q4H PRN PRN Reason: FEVER Last Admin: 06/18/18 17:43 Dose: 650 mg Amoxicillin/Clavulanate Potassium (Augmentin - 500mg Tablet) 1 tab PO BID@0800, 1730 [facility] Last Admin: 06/24/18 09:49 Dose: 1 tab Apixaban (Eliquis -) 2.5 mg PO BID [facility] Last Admin: 06/24/18 09:49 Dose: 2.5 mg Ascorbic Acid (Vitamin C -) 500 mg PO DAILY [facility] Last Admin: 06/24/18 09:49 Dose: 500 mg Bacitracin (Bacitracin -) 1 applic TP BID [facility] Last Admin: 06/24/18 09:50 Dose: 1 applic Bisacodyl (Dulcolax -) 5 mg PO DAILY [facility] Last Admin: 06/24/18 09:49 Dose: 5 mg Clindamycin HCl (Cleocin -) 300 mg PO Q6HPO [facility] Last Admin: 06/24/18 06:14 Dose: 300 mg Collagenase (Santyl -) 1 applic TP DAILY [facility]; Protocol Last Admin: 06/24/18 09:51 Dose: 1 applic Ferrous Sulfate (Feosol -) 325 mg PO DAILY [facility] Last Admin: 06/24/18 09:49 Dose: 325 mg Ceftriaxone Sodium 1 gm/ (Dextrose) 50 mls @ 200 mls/hr IVPB DAILY [facility]; Protocol Last Admin: 06/24/18 09:50 Dose: 200 mls/hr Insulin Aspart (Novolog Vial Sliding Scale -) 1 vial SQ ACHS [facility]; Protocol Last Admin: 06/24/18 06:30 Dose: 2 units Insulin Detemir (Levemir Vial) 6 units SQ BID@0700,2200 [facility] Last Admin: 06/24/18 06:30 Dose: 6 units Lorazepam (Ativan -) 0.5 mg PO BID [facility] Last Admin: 06/24/18 09:49 Dose: 0.5 mg Ondansetron HCl (Zofran Injection) 4 mg IVPUSH Q6H PRN PRN Reason: NAUSEA Propranolol HCl (Inderal -) 40 mg PO BID [facility] Last Admin: 06/24/18 09:49 Dose: 40 mg Risperidone (Risperdal -) 0.25 mg PO BID [facility] Last Admin: 06/24/18 09:49 Dose: 0.25 mg - Objective Vital Signs: Vital Signs Temperature 98.7 F 06/24/18 05:17 Pulse Rate 87 06/24/18 05:17 Respiratory Rate 19 06/24/18 05:17 Blood Pressure 135/68 06/24/18 05:17 O2 Sat by Pulse Oximetry (%) 98 06/23/18 20:17 Constitutional: Yes: No Distress, Calm Respiratory: Yes: Regular, CTA Bilaterally Gastrointestinal: Yes: Normal Bowel Sounds, Soft Musculoskeletal: Yes: Other Extremities: Yes: Other Neurological: Yes: Alert, Oriented Psychiatric: Yes: Alert, Oriented Labs: CBC, BMP 06/24/18 06:30 06/24/18 06:30 Assessment/Plan Problem List - Problems (1) Decubitus ulcer of heel, bilateral, stage 3 Code(s): L89.613 - PRESSURE ULCER OF RIGHT HEEL, STAGE 3; L89.623 - PRESSURE ULCER OF LEFT HEEL, STAGE 3 (2) Transaminitis Code(s): R74.0 - NONSPEC ELEV OF LEVELS OF TRANSAMNS & LACTIC ACID DEHYDRGNSE (3) History of DVT (deep vein thrombosis) Code(s): Z86.718 - PERSONAL HISTORY OF OTHER VENOUS THROMBOSIS AND EMBOLISM (4) Bipolar 1 disorder Code(s): F31.9 - BIPOLAR DISORDER, UNSPECIFIED (5) Functional quadriplegia Code(s): R53.2 - FUNCTIONAL QUADRIPLEGIA (6) HTN (hypertension) Code(s): I10 - ESSENTIAL (PRIMARY) HYPERTENSION Qualifiers: Hypertension type: essential hypertension Qualified Code(s): I10 - Essential (primary) hypertension (7) Lactic acidosis Code(s): E87.2 - ACIDOSIS (8) Diabetes Code(s): E11.9 - TYPE 2 DIABETES MELLITUS WITHOUT COMPLICATIONS Qualifiers: Diabetes mellitus type: type 2 Diabetes mellitus correction insulin use: with supervisor pipe finishing use Diabetes mellitus complication status: with skin complications Diabetes mellitus complication detail: with foot ulcer Qualified Code(s): E11.621 - Type 2 diabetes mellitus with foot ulcer; L97.509 - Non-pressure chronic ulcer of other part of unspecified foot with unspecified severity; Z79.4 - emergency medical service manager (current) use of insulin (9) Cough Code(s): R05 - COUGH plan continue oral abx monitor for dirrhoea if loose bm again check for cdiff if cdiff positive will have to hold abx
--- NOTE | 2018-06-24 11:58 | PN ---
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 Monitor tolerance and consistency of food provided, as discussed with nursing.
--- NOTE | 2018-06-24 12:59 | PN ---
Progress Note, Physician Chief Complaint: Unable to obtain, [place] is confused today. [place] Asking for something to drink. - Current Medication List Current Medications: Active Medications Acetaminophen (Tylenol -) 650 mg PO Q4H PRN PRN Reason: FEVER Last Admin: 06/18/18 17:43 Dose: 650 mg Amoxicillin/Clavulanate Potassium (Augmentin - 500mg Tablet) 1 tab PO BID@0800, 1730 [facility] Last Admin: 06/24/18 09:49 Dose: 1 tab Apixaban (Eliquis -) 2.5 mg PO BID [facility] Last Admin: 06/24/18 09:49 Dose: 2.5 mg Ascorbic Acid (Vitamin C -) 500 mg PO DAILY [facility] Last Admin: 06/24/18 09:49 Dose: 500 mg Bacitracin (Bacitracin -) 1 applic TP BID [facility] Last Admin: 06/24/18 09:50 Dose: 1 applic Bisacodyl (Dulcolax -) 5 mg PO DAILY [facility] Last Admin: 06/24/18 09:49 Dose: 5 mg Clindamycin HCl (Cleocin -) 300 mg PO Q6HPO [facility] Last Admin: 06/24/18 06:14 Dose: 300 mg Collagenase (Santyl -) 1 applic TP DAILY [facility]; Protocol Last Admin: 06/24/18 09:51 Dose: 1 applic Ferrous Sulfate (Feosol -) 325 mg PO DAILY [facility] Last Admin: 06/24/18 09:49 Dose: 325 mg Ceftriaxone Sodium 1 gm/ (Dextrose) 50 mls @ 200 mls/hr IVPB DAILY [facility]; Protocol Last Admin: 06/24/18 09:50 Dose: 200 mls/hr Insulin Aspart (Novolog Vial Sliding Scale -) 1 vial SQ ACHS [facility]; Protocol Last Admin: 06/24/18 11:20 Dose: Not Given Insulin Detemir (Levemir Vial) 6 units SQ BID@0700,2200 [facility] Last Admin: 06/24/18 06:30 Dose: 6 units Lorazepam (Ativan -) 0.5 mg PO BID [facility] Last Admin: 06/24/18 09:49 Dose: 0.5 mg Ondansetron HCl (Zofran Injection) 4 mg IVPUSH Q6H PRN PRN Reason: NAUSEA Propranolol HCl (Inderal -) 40 mg PO BID [facility] Last Admin: 06/24/18 09:49 Dose: 40 mg Risperidone (Risperdal -) 0.25 mg PO BID [facility] Last Admin: 06/24/18 09:49 Dose: 0.25 mg - Objective Vital Signs: Vital Signs Temperature 37.1 C 06/24/18 05:17 Pulse Rate 87 06/24/18 05:17 Respiratory Rate 19 06/24/18 05:17 Blood Pressure 135/68 06/24/18 05:17 O2 Sat by Pulse Oximetry (%) 98 06/24/18 09:00 Constitutional: Yes: Well Nourished, No Distress, Calm Cardiovascular: Yes: Regular Rate and Rhythm. No: Gallop, Murmur, Rub Respiratory: Yes: Regular, CTA Bilaterally. No: Rales, Rhonchi, Wheezes Gastrointestinal: Yes: Normal Bowel Sounds, Soft. No: Distention, Tenderness Extremities: Yes: Other (feet wrapped) Edema: No Labs: CBC, BMP 06/24/18 06:30 06/24/18 06:30 Problem List - Problems (1) Stage 4 skin ulcer of sacral region Code(s): L98.429 - NON-PRESSURE CHRONIC ULCER OF BACK WITH UNSPECIFIED SEVERITY (2) Decubitus ulcer of heel, bilateral, stage 3 Code(s): L89.613 - PRESSURE ULCER OF RIGHT HEEL, STAGE 3; L89.623 - PRESSURE ULCER OF LEFT HEEL, STAGE 3 (3) Transaminitis Code(s): R74.0 - NONSPEC ELEV OF LEVELS OF TRANSAMNS & LACTIC ACID DEHYDRGNSE (4) History of DVT (deep vein thrombosis) Code(s): Z86.718 - PERSONAL HISTORY OF OTHER VENOUS THROMBOSIS AND EMBOLISM (5) Bipolar 1 disorder Code(s): F31.9 - BIPOLAR DISORDER, UNSPECIFIED (6) Functional quadriplegia Code(s): R53.2 - FUNCTIONAL QUADRIPLEGIA (7) HTN (hypertension) Code(s): I10 - ESSENTIAL (PRIMARY) HYPERTENSION Qualifiers: Hypertension type: essential hypertension Qualified Code(s): I10 - Essential (primary) hypertension (8) Lactic acidosis Code(s): E87.2 - ACIDOSIS (9) Diabetes Code(s): E11.9 - TYPE 2 DIABETES MELLITUS WITHOUT COMPLICATIONS Qualifiers: Diabetes mellitus type: type 2 Diabetes mellitus correction insulin use: with correction use Diabetes mellitus complication status: with skin complications Diabetes mellitus complication detail: with foot ulcer Qualified Code(s): E11.621 - Type 2 diabetes mellitus with foot ulcer; L97.509 - Non-pressure chronic ulcer of other part of unspecified foot with unspecified severity; Z79.4 - slip dumper (current) use of insulin (10) Cough Code(s): R05 - COUGH Assessment/Plan (1) Multiple decubitus ulceration of heels and sacrum Assessment/Plan: -case d/w Dr Ohara -continue augmentin, rocephin, and clindamycin Code(s): L89.613 - PRESSURE ULCER OF RIGHT HEEL, STAGE 3; L89.623 - PRESSURE ULCER OF LEFT HEEL, STAGE 3 (2) Transaminitis Assessment/Plan: -MRCP reviewed -GI following Code(s): R74.0 - NONSPEC ELEV OF LEVELS OF TRANSAMNS & LACTIC ACID DEHYDRGNSE (3) History of DVT (deep vein thrombosis) Assessment/Plan: -continue eliquis Code(s): Z86.718 - PERSONAL HISTORY OF OTHER VENOUS THROMBOSIS AND EMBOLISM (4) Bipolar 1 disorder Assessment/Plan: -confused today -will monitor for improvement Code(s): F31.9 - BIPOLAR DISORDER, UNSPECIFIED (5) Functional quadriplegia Assessment/Plan: -PT following Code(s): R53.2 - FUNCTIONAL QUADRIPLEGIA (6) HTN (hypertension) Assessment/Plan: -continue propanolol Code(s): I10 - ESSENTIAL (PRIMARY) HYPERTENSION Qualifiers: Hypertension type: essential hypertension Qualified Code(s): I10 - Essential (primary) hypertension (7) Lactic acidosis Assessment/Plan: -resolved Code(s): E87.2 - ACIDOSIS (8) Diabetes Assessment/Plan -levemir 6 units bid Code(s): E11.9 - TYPE 2 DIABETES MELLITUS WITHOUT COMPLICATIONS Qualifiers: Diabetes mellitus type: type 2 Diabetes mellitus collections representative insulin use: with correction use Diabetes mellitus complication status: with skin complications Diabetes mellitus complication detail: with foot ulcer Qualified Code(s): E11.621 - Type 2 diabetes mellitus with foot ulcer; L97.509 - Non-pressure chronic ulcer of other part of unspecified foot with unspecified severity; Z79.4 - snf (current) use of insulin (9) Cough Assessment/Plan: -speech therapy following Code(s): R05 - COUGH (10) Hypernatremia -nephrology following -stable -on fluid restriction (11) AMILCAR -worsening -nephrology following
--- NOTE | 2018-06-24 18:50 | PN ---
Progress Note (short form) - Note Progress Note: covering dr tai problems 1. Hypernatremia 2. bipolar 3. DM 4. HTN 5. DVT 6. glucosuria 7. DI Current Medications Acetaminophen (Tylenol -) 650 mg PO Q4H PRN PRN Reason: FEVER Last Admin: 06/18/18 17:43 Dose: 650 mg Amoxicillin/Clavulanate Potassium (Augmentin - 500mg Tablet) 1 tab PO BID@0800, 1730 [facility] Last Admin: 06/24/18 17:08 Dose: 1 tab Apixaban (Eliquis -) 2.5 mg PO BID [facility] Last Admin: 06/24/18 09:49 Dose: 2.5 mg Ascorbic Acid (Vitamin C -) 500 mg PO DAILY [facility] Last Admin: 06/24/18 09:49 Dose: 500 mg Bacitracin (Bacitracin -) 1 applic TP BID [facility] Last Admin: 06/24/18 09:50 Dose: 1 applic Bisacodyl (Dulcolax -) 5 mg PO DAILY [facility] Last Admin: 06/24/18 09:49 Dose: 5 mg Clindamycin HCl (Cleocin -) 300 mg PO Q6HPO [facility] Last Admin: 06/24/18 17:13 Dose: 300 mg Collagenase (Santyl -) 1 applic TP DAILY [facility]; Protocol Last Admin: 06/24/18 09:51 Dose: 1 applic Ferrous Sulfate (Feosol -) 325 mg PO DAILY [facility] Last Admin: 06/24/18 09:49 Dose: 325 mg Ceftriaxone Sodium 1 gm/ (Dextrose) 50 mls @ 200 mls/hr IVPB DAILY [facility]; Protocol Last Admin: 06/24/18 09:50 Dose: 200 mls/hr Insulin Aspart (Novolog Vial Sliding Scale -) 1 vial SQ ACHS [facility]; Protocol Last Admin: 06/24/18 17:08 Dose: Not Given Insulin Detemir (Levemir Vial) 6 units SQ BID@0700,2200 [facility] Last Admin: 06/24/18 06:30 Dose: 6 units Lorazepam (Ativan -) 0.5 mg PO BID [facility] Last Admin: 06/24/18 09:49 Dose: 0.5 mg Ondansetron HCl (Zofran Injection) 4 mg IVPUSH Q6H PRN PRN Reason: NAUSEA Propranolol HCl (Inderal -) 40 mg PO BID [facility] Last Admin: 06/24/18 09:49 Dose: 40 mg Risperidone (Risperdal -) 0.25 mg PO BID [facility] Last Admin: 06/24/18 09:49 Dose: 0.25 mg Last Vital Signs Temp Pulse Resp BP Pulse Ox 97.4 F L 82 19 140/62 98 06/24/18 14:26 06/24/18 14:26 06/24/18 05:17 06/24/18 14:26 06/24/18 09:00 in nad Lungs clear heart reg abd soft nontender ext no edema CBC, BMP 06/24/18 06:30 06/24/18 06:30 IMP- hypernatremia DI azotemia Plan continue hydration follow bmp
[2018-06-25] MEDS: CLINDAMYCIN HCL 150 MG CAPSULE (FP) PO SCH ×4 (00:20→17:05)
[2018-06-25] MEDS: INSULIN (LEVEMIR) 100 UNITS/ML UNITS SQ SCH ×2 (06:35→21:24)
[2018-06-25] MEDS: INSULIN SLIDING SCALE (NOVOLOG) 1 VIAL SQ SCH ×4 (06:36→21:24)
[2018-06-25] MEDS ORDERED: INSULIN (NOVOLOG) ASPART 100 UNITS/ML 10ML VIAL ONE ×2 (06:41→20:56)
[2018-06-25 07:19] LABS: BASO % 0.6 % (0-2.0); EOS % 3.3 % (0-4.5); HEMATOCRIT 31.1 % (32.4-45.2); HEMOGLOBIN 9.6 GM/dL (10.7-15.3); LYMPH % 27.9 % (8-40); MCHC 30.9 g/dl (32.0-36.0); MEAN CELL VOLUME 90.5 fl (80-96); MONO % 10.8 % (3.8-10.2); NEUT % 57.4 % (42.8-82.8); PLATELET COUNT 365 K/MM3 (134-434); RBC 3.44 M/mm3 (3.60-5.2); RDW 18.6 % (11.6-15.6); WHITE BLOOD COUNT 5.3 K/mm3 (4.0-10.0)
[2018-06-25 07:53] LABS: ANION GAP 9 MMOL/L (8-16); BLOOD UREA NITROGEN 20 mg/dL (7-18); CALCIUM 8.7 mg/dL (8.5-10.1); CHLORIDE 117 mmol/L (98-107); CO2 20 mmol/L (21-32); CREATININE 1.5 mg/dL (0.55-1.3); GLUCOSE,RANDOM 165 mg/dL (74-106); MAGNESIUM 2.5 mg/dL (1.8-2.4); PHOSPHOROUS 4.2 mg/dL (2.5-4.9); POTASSIUM 4.6 mmol/L (3.5-5.1); SODIUM 145 mmol/L (136-145)
--- NOTE | 2018-06-25 09:52 | PN ---
Progress Note, Physician History of Present Illness: patient stable says she is thirsty - Current Medication List Current Medications: Active Medications Acetaminophen (Tylenol -) 650 mg PO Q4H PRN PRN Reason: FEVER Last Admin: 06/18/18 17:43 Dose: 650 mg Amoxicillin/Clavulanate Potassium (Augmentin - 500mg Tablet) 1 tab PO BID@0800, 1730 [facility] Last Admin: 06/24/18 17:08 Dose: 1 tab Apixaban (Eliquis -) 2.5 mg PO BID [facility] Last Admin: 06/24/18 21:21 Dose: 2.5 mg Ascorbic Acid (Vitamin C -) 500 mg PO DAILY [facility] Last Admin: 06/24/18 09:49 Dose: 500 mg Bacitracin (Bacitracin -) 1 applic TP BID [facility] Last Admin: 06/24/18 21:21 Dose: 1 applic Bisacodyl (Dulcolax -) 5 mg PO DAILY [facility] Last Admin: 06/24/18 09:49 Dose: 5 mg Clindamycin HCl (Cleocin -) 300 mg PO Q6HPO [facility] Last Admin: 06/25/18 06:04 Dose: 300 mg Collagenase (Santyl -) 1 applic TP DAILY [facility]; Protocol Last Admin: 06/24/18 09:51 Dose: 1 applic Ferrous Sulfate (Feosol -) 325 mg PO DAILY [facility] Last Admin: 06/24/18 09:49 Dose: 325 mg Ceftriaxone Sodium 1 gm/ (Dextrose) 50 mls @ 200 mls/hr IVPB DAILY [facility]; Protocol Last Admin: 06/24/18 09:50 Dose: 200 mls/hr Insulin Aspart (Novolog Vial Sliding Scale -) 1 vial SQ ACHS [facility]; Protocol Last Admin: 06/25/18 06:36 Dose: 2 units Insulin Detemir (Levemir Vial) 6 units SQ BID@0700,2200 [facility] Last Admin: 06/25/18 06:35 Dose: 6 units Lorazepam (Ativan -) 0.5 mg PO BID [facility] Last Admin: 06/24/18 21:21 Dose: 0.5 mg Ondansetron HCl (Zofran Injection) 4 mg IVPUSH Q6H PRN PRN Reason: NAUSEA Propranolol HCl (Inderal -) 40 mg PO BID [facility] Last Admin: 06/24/18 21:22 Dose: 40 mg Risperidone (Risperdal -) 0.25 mg PO BID [facility] Last Admin: 06/24/18 21:22 Dose: 0.25 mg - Objective Vital Signs: Vital Signs Temperature 97.2 F L 06/25/18 05:15 Pulse Rate 89 06/25/18 05:15 Respiratory Rate 20 06/25/18 05:15 Blood Pressure 136/69 06/25/18 05:15 O2 Sat by Pulse Oximetry (%) 98 06/24/18 20:29 Constitutional: Yes: No Distress, Calm Cardiovascular: Yes: Regular Rate and Rhythm Respiratory: Yes: Regular, CTA Bilaterally Gastrointestinal: Yes: Normal Bowel Sounds, Soft Musculoskeletal: Yes: WNL Extremities: Yes: Other Wound/Incision: Yes: Dressing Dry and Intact Neurological: Yes: Alert Psychiatric: Yes: Alert Labs: CBC, BMP 06/25/18 06:30 06/25/18 06:30 Assessment/Plan Problem List - Problems (1) Decubitus ulcer of heel, bilateral, stage 3 Code(s): L89.613 - PRESSURE ULCER OF RIGHT HEEL, STAGE 3; L89.623 - PRESSURE ULCER OF LEFT HEEL, STAGE 3 (2) Transaminitis Code(s): R74.0 - NONSPEC ELEV OF LEVELS OF TRANSAMNS & LACTIC ACID DEHYDRGNSE (3) History of DVT (deep vein thrombosis) Code(s): Z86.718 - PERSONAL HISTORY OF OTHER VENOUS THROMBOSIS AND EMBOLISM (4) Bipolar 1 disorder Code(s): F31.9 - BIPOLAR DISORDER, UNSPECIFIED (5) Functional quadriplegia Code(s): R53.2 - FUNCTIONAL QUADRIPLEGIA (6) HTN (hypertension) Code(s): I10 - ESSENTIAL (PRIMARY) HYPERTENSION Qualifiers: Hypertension type: essential hypertension Qualified Code(s): I10 - Essential (primary) hypertension (7) Lactic acidosis Code(s): E87.2 - ACIDOSIS (8) Diabetes Code(s): E11.9 - TYPE 2 DIABETES MELLITUS WITHOUT COMPLICATIONS Qualifiers: Diabetes mellitus type: type 2 Diabetes mellitus sorting grapple operator insulin use: with sorting grapple operator use Diabetes mellitus complication status: with skin complications Diabetes mellitus complication detail: with foot ulcer Qualified Code(s): E11.621 - Type 2 diabetes mellitus with foot ulcer; L97.509 - Non-pressure chronic ulcer of other part of unspecified foot with unspecified severity; Z79.4 - nursing home (current) use of insulin (9) Cough Code(s): R05 - COUGH plan continue current mgmt patient stable complete course of abx as planned rest as per the team
[2018-06-25] MEDS ORDERED: PT OWN MED DRAWER 7, Y5N ONE ×2 (11:09→20:57)
[2018-06-25] MEDS ORDERED: cefTRIAXone SODIUM 1 GM VIAL ONE (11:09)
[2018-06-25] MEDS ORDERED: DEXTROSE 5%-WATER - 50 ML IVPB ONE (11:10)
[2018-06-25] MEDS: LORazepam 0.5 MG TABLET PO SCH ×2 (11:55→21:24)
[2018-06-25] MEDS: AMOX TR/POT CLAV 500MG/125MG TABLETS (FP) PO SCH ×2 (11:55→17:05)
[2018-06-25] MEDS: FERROUS SO4 325 MG TABLET (FP) PO SCH (11:55)
[2018-06-25] MEDS: risperiDONE 0.25 MG TABLET (FP) PO SCH ×2 (11:55→21:24)
[2018-06-25] MEDS: CEFTRIAXONE 1 GM in DEXTROSE 5%-WATER - 50 ML IVPB SCH (11:55)
[2018-06-25] MEDS: BISACODYL 5 MG TABLET.DR (FP) PO SCH (11:55)
[2018-06-25] MEDS: ASCORBIC ACID 500 MG TABLET (FP) PO SCH (11:56)
[2018-06-25] MEDS: BACITRACIN 15 GM TUBE TOPICAL OINTMENT TP SCH ×2 (11:57→21:24)
[2018-06-25] MEDS: APIXABAN 2.5 MG TABLET PO SCH ×2 (12:00→21:24)
--- NOTE | 2018-06-25 13:03 | PN ---
Progress Note, Physician History of Present Illness: Pt seen and examined at bedside. She is awake and alert. She denies shortness of breath. - Current Medication List Current Medications: Active Medications Acetaminophen (Tylenol -) 650 mg PO Q4H PRN PRN Reason: FEVER Last Admin: 06/18/18 17:43 Dose: 650 mg Amoxicillin/Clavulanate Potassium (Augmentin - 500mg Tablet) 1 tab PO BID@0800, 1730 [facility] Last Admin: 06/25/18 11:55 Dose: 1 tab Apixaban (Eliquis -) 2.5 mg PO BID [facility] Last Admin: 06/25/18 12:00 Dose: 2.5 mg Ascorbic Acid (Vitamin C -) 500 mg PO DAILY [facility] Last Admin: 06/25/18 11:56 Dose: 500 mg Bacitracin (Bacitracin -) 1 applic TP BID [facility] Last Admin: 06/25/18 11:57 Dose: 1 applic Bisacodyl (Dulcolax -) 5 mg PO DAILY [facility] Last Admin: 06/25/18 11:55 Dose: 5 mg Clindamycin HCl (Cleocin -) 300 mg PO Q6HPO [facility] Last Admin: 06/25/18 12:00 Dose: 300 mg Collagenase (Santyl -) 1 applic TP DAILY [facility]; Protocol Last Admin: 06/24/18 09:51 Dose: 1 applic Ferrous Sulfate (Feosol -) 325 mg PO DAILY [facility] Last Admin: 06/25/18 11:55 Dose: 325 mg Ceftriaxone Sodium 1 gm/ (Dextrose) 50 mls @ 200 mls/hr IVPB DAILY [facility]; Protocol Last Admin: 06/25/18 11:55 Dose: 200 mls/hr Insulin Aspart (Novolog Vial Sliding Scale -) 1 vial SQ ACHS [facility]; Protocol Last Admin: 06/25/18 11:57 Dose: Not Given Insulin Detemir (Levemir Vial) 6 units SQ BID@0700,2200 [facility] Last Admin: 06/25/18 06:35 Dose: 6 units Lorazepam (Ativan -) 0.5 mg PO BID [facility] Last Admin: 06/25/18 11:55 Dose: 0.5 mg Ondansetron HCl (Zofran Injection) 4 mg IVPUSH Q6H PRN PRN Reason: NAUSEA Propranolol HCl (Inderal -) 40 mg PO BID [facility] Last Admin: 06/25/18 11:56 Dose: 40 mg Risperidone (Risperdal -) 0.25 mg PO BID [facility] Last Admin: 06/25/18 11:55 Dose: 0.25 mg - Objective Vital Signs: Vital Signs Temperature 97.9 F 06/25/18 11:50 Pulse Rate 98 H 06/25/18 11:50 Respiratory Rate 19 06/25/18 11:50 Blood Pressure 140/70 06/25/18 11:50 O2 Sat by Pulse Oximetry (%) 98 06/24/18 20:29 Constitutional: Yes: Calm Eyes: Yes: Conjunctiva Clear HENT: Yes: Atraumatic Cardiovascular: Yes: S1, S2 Respiratory: Yes: Regular, CTA Bilaterally Gastrointestinal: Yes: Soft Genitourinary: Yes: Tejeda Present, Polyuria Musculoskeletal: Yes: Muscle Weakness Edema: No Neurological: Yes: Oriented Psychiatric: Yes: Oriented Labs: CBC, BMP 06/25/18 06:30 06/25/18 06:30 Problem List - Problems (1) Acute hypernatremia Code(s): E87.0 - HYPEROSMOLALITY AND HYPERNATREMIA (2) HTN (hypertension) Code(s): I10 - ESSENTIAL (PRIMARY) HYPERTENSION Qualifiers: Hypertension type: essential hypertension Qualified Code(s): I10 - Essential (primary) hypertension Assessment/Plan Current Medications Generic Name Dose Route Start Last Admin Trade Name Freq PRN Reason Stop Dose Admin Acetaminophen 650 mg 06/16/18 00:21 06/18/18 17:43 Tylenol - PO 650 mg Q4H PRN Administration FEVER Amoxicillin/Clavulanate Potassium 1 tab 06/23/18 17:30 06/25/18 11:55 Augmentin - 500mg Tablet PO 1 tab BID@0800,1730 [facility] Administration Apixaban 2.5 mg 06/16/18 10:00 06/25/18 12:00 Eliquis - PO 2.5 mg BID Y[facility]AV Administration Ascorbic Acid 500 mg 06/16/18 10:00 06/25/18 11:56 Vitamin C - PO 500 mg DAILY [facility] Administration Bacitracin 1 applic 06/16/18 10:00 06/25/18 11:57 Bacitracin - TP 1 applic BID [facility] Administration Bisacodyl 5 mg 06/16/18 10:00 06/25/18 11:55 Dulcolax - PO 5 mg DAILY [facility] Administration Clindamycin HCl 300 mg 06/23/18 18:00 06/25/18 12:00 Cleocin - PO 300 mg Q6HPO [facility] Administration Collagenase 1 applic 06/16/18 10:00 06/24/18 09:51 Santyl - TP 1 applic DAILY [facility] Administration Protocol Ferrous Sulfate 325 mg 06/16/18 10:00 06/25/18 11:55 Feosol - PO 325 mg DAILY [facility] Administration Ceftriaxone Sodium 1 gm/ 50 mls @ 200 mls/hr 06/23/18 12:45 06/25/18 11:55 Dextrose IVPB 200 mls/hr DAILY [facility] Administration Protocol Insulin Aspart 1 vial 06/16/18 07:00 06/25/18 11:57 Novolog Vial Sliding Scale - SQ Not Given ACHS [facility] Protocol Insulin Detemir 6 units 06/22/18 22:00 06/25/18 06:35 Levemir Vial SQ 6 units BID@0700,2200 [facility] Administration Lorazepam 0.5 mg 06/16/18 10:00 06/25/18 11:55 Ativan - PO 0.5 mg BID [facility] Administration Ondansetron HCl 4 mg 06/16/18 00:21 Zofran Injection IVPUSH Q6H PRN NAUSEA Propranolol HCl 40 mg 06/16/18 10:00 06/25/18 11:56 Inderal - PO 40 mg BID [facility] Administration Risperidone 0.25 mg 06/16/18 10:00 06/25/18 11:55 Risperdal - PO 0.25 mg BID YOAV Administration Impression 1. Hypernatremia 2. bipolar 3. DM 4. HTN 5. DVT 6. glucosuria 7. DI Plan - sodium is improved - pt has polyuria however sodium is dropping - will continue to observe - repeat labs in am - will hold off desmopressin today - discussed with medical team - will follow closely Dr Bhagat
--- NOTE | 2018-06-25 13:07 | PN ---
Progress Note, [employer] - Note Progress Note: Selected Entries 06/23/18 06/23/18 06/23/18 07:16 15:31 20:01 Breakfast 50% Lunch 50% Supper 50% Temperature 98.5 F 98.4 F 99.7 F H 06/24/18 06/24/18 05:17 10:23 Breakfast 25% Lunch Supper Temperature 98.7 F Laboratory Tests 06/24/18 06:30 WBC 6.3 Selected Entries 06/25/18 06/25/18 06/25/18 05:15 09:55 11:50 Breakfast 50% Temperature 97.2 F L 97.9 F Laboratory Tests 06/25/18 06:30 WBC 5.3 Monitor tolerance and consistency of food provided, as discussed with nursing.
[2018-06-25] MEDS: COLLAGENASE CLOSTRIDIUM HIST. 30 GRAMS TUBE TP SCH (14:30)
--- NOTE | 2018-06-25 14:38 | PN ---
Progress Note, Physician Chief Complaint: Ms Estrada is back to baseline today. Still asking to drink. No cp, sob, n/v. - Current Medication List Current Medications: Active Medications Acetaminophen (Tylenol -) 650 mg PO Q4H PRN PRN Reason: FEVER Last Admin: 06/18/18 17:43 Dose: 650 mg Amoxicillin/Clavulanate Potassium (Augmentin - 500mg Tablet) 1 tab PO BID@0800, 1730 [facility] Last Admin: 06/25/18 11:55 Dose: 1 tab Apixaban (Eliquis -) 2.5 mg PO BID [facility] Last Admin: 06/25/18 12:00 Dose: 2.5 mg Ascorbic Acid (Vitamin C -) 500 mg PO DAILY [facility] Last Admin: 06/25/18 11:56 Dose: 500 mg Bacitracin (Bacitracin -) 1 applic TP BID [facility] Last Admin: 06/25/18 11:57 Dose: 1 applic Bisacodyl (Dulcolax -) 5 mg PO DAILY [facility] Last Admin: 06/25/18 11:55 Dose: 5 mg Clindamycin HCl (Cleocin -) 300 mg PO Q6HPO [facility] Last Admin: 06/25/18 12:00 Dose: 300 mg Collagenase (Santyl -) 1 applic TP DAILY [facility]; Protocol Last Admin: 06/24/18 09:51 Dose: 1 applic Ferrous Sulfate (Feosol -) 325 mg PO DAILY [facility] Last Admin: 06/25/18 11:55 Dose: 325 mg Ceftriaxone Sodium 1 gm/ (Dextrose) 50 mls @ 200 mls/hr IVPB DAILY [facility]; Protocol Last Admin: 06/25/18 11:55 Dose: 200 mls/hr Insulin Aspart (Novolog Vial Sliding Scale -) 1 vial SQ ACHS [facility]; Protocol Last Admin: 06/25/18 11:57 Dose: Not Given Insulin Detemir (Levemir Vial) 6 units SQ BID@0700,2200 [facility] Last Admin: 06/25/18 06:35 Dose: 6 units Lorazepam (Ativan -) 0.5 mg PO BID [facility] Last Admin: 06/25/18 11:55 Dose: 0.5 mg Ondansetron HCl (Zofran Injection) 4 mg IVPUSH Q6H PRN PRN Reason: NAUSEA Propranolol HCl (Inderal -) 40 mg PO BID [facility] Last Admin: 06/25/18 11:56 Dose: 40 mg Risperidone (Risperdal -) 0.25 mg PO BID [facility] Last Admin: 06/25/18 11:55 Dose: 0.25 mg - Objective Vital Signs: Vital Signs Temperature 37.4 C 06/25/18 14:15 Pulse Rate 78 06/25/18 14:15 Respiratory Rate 19 06/25/18 11:50 Blood Pressure 126/56 L 06/25/18 14:15 O2 Sat by Pulse Oximetry (%) 98 06/24/18 20:29 Constitutional: Yes: Well Nourished, No Distress, Calm Cardiovascular: Yes: Regular Rate and Rhythm. No: Gallop, Murmur, Rub Respiratory: Yes: Regular, CTA Bilaterally. No: Rales, Rhonchi, Wheezes Gastrointestinal: Yes: Normal Bowel Sounds, Soft. No: Distention, Tenderness Extremities: Yes: Other (wrapped) Edema: No Labs: CBC, BMP 06/25/18 06:30 06/25/18 06:30 Problem List - Problems (1) Stage 4 skin ulcer of sacral region Code(s): L98.429 - NON-PRESSURE CHRONIC ULCER OF BACK WITH UNSPECIFIED SEVERITY (2) Decubitus ulcer of heel, bilateral, stage 3 Code(s): L89.613 - PRESSURE ULCER OF RIGHT HEEL, STAGE 3; L89.623 - PRESSURE ULCER OF LEFT HEEL, STAGE 3 (3) Transaminitis Code(s): R74.0 - NONSPEC ELEV OF LEVELS OF TRANSAMNS & LACTIC ACID DEHYDRGNSE (4) History of DVT (deep vein thrombosis) Code(s): Z86.718 - PERSONAL HISTORY OF OTHER VENOUS THROMBOSIS AND EMBOLISM (5) Bipolar 1 disorder Code(s): F31.9 - BIPOLAR DISORDER, UNSPECIFIED (6) Functional quadriplegia Code(s): R53.2 - FUNCTIONAL QUADRIPLEGIA (7) HTN (hypertension) Code(s): I10 - ESSENTIAL (PRIMARY) HYPERTENSION Qualifiers: Hypertension type: essential hypertension Qualified Code(s): I10 - Essential (primary) hypertension (8) Lactic acidosis Code(s): E87.2 - ACIDOSIS (9) Diabetes Code(s): E11.9 - TYPE 2 DIABETES MELLITUS WITHOUT COMPLICATIONS Qualifiers: Diabetes mellitus type: type 2 Diabetes mellitus 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 terminal attack controller insulin use: with joint terminal attack controller use Diabetes mellitus complication status: with skin complications Diabetes mellitus complication detail: with foot ulcer Qualified Code(s): E11.621 - Type 2 diabetes mellitus with foot ulcer; L97.509 - Non-pressure chronic ulcer of other part of unspecified foot with unspecified severity; Z79.4 - care home (current) use of insulin (10) Cough Code(s): R05 - COUGH Assessment/Plan (1) Multiple decubitus ulceration of heels and sacrum Assessment/Plan: -ID following -continue augmentin, rocephin, and clindamycin Code(s): L89.613 - PRESSURE ULCER OF RIGHT HEEL, STAGE 3; L89.623 - PRESSURE ULCER OF LEFT HEEL, STAGE 3 (2) Transaminitis Assessment/Plan: -MRCP reviewed -GI following Code(s): R74.0 - NONSPEC ELEV OF LEVELS OF TRANSAMNS & LACTIC ACID DEHYDRGNSE (3) History of DVT (deep vein thrombosis) Assessment/Plan: -continue eliquis Code(s): Z86.718 - PERSONAL HISTORY OF OTHER VENOUS THROMBOSIS AND EMBOLISM (4) Bipolar 1 disorder Assessment/Plan: -at baseline Code(s): F31.9 - BIPOLAR DISORDER, UNSPECIFIED (5) Functional quadriplegia Assessment/Plan: -PT following Code(s): R53.2 - FUNCTIONAL QUADRIPLEGIA (6) HTN (hypertension) Assessment/Plan: -continue propanolol Code(s): I10 - ESSENTIAL (PRIMARY) HYPERTENSION Qualifiers: Hypertension type: essential hypertension Qualified Code(s): I10 - Essential (primary) hypertension (7) Lactic acidosis Assessment/Plan: -resolved Code(s): E87.2 - ACIDOSIS (8) Diabetes Assessment/Plan -continue current management Code(s): E11.9 - TYPE 2 DIABETES MELLITUS WITHOUT COMPLICATIONS Qualifiers: Diabetes mellitus type: type 2 Diabetes mellitus usp insulin use: with usp use Diabetes mellitus complication status: with skin complications Diabetes mellitus complication detail: with foot ulcer Qualified Code(s): E11.621 - Type 2 diabetes mellitus with foot ulcer; L97.509 - Non-pressure chronic ulcer of other part of unspecified foot with unspecified severity; Z79.4 - care home (current) use of insulin (9) Cough Assessment/Plan: -speech therapy following Code(s): R05 - COUGH (10) Hypernatremia -resolved -case d/w Dr Bhagat -continue fluid restriction -stop desmopressin -continue to monitor (11) AMILCAR -stable -nephrology following
[2018-06-26] MEDS: CLINDAMYCIN HCL 150 MG CAPSULE (FP) PO SCH ×3 (00:09→12:55)
[2018-06-26] MEDS: INSULIN SLIDING SCALE (NOVOLOG) 1 VIAL SQ SCH ×2 (06:18→11:58)
[2018-06-26] MEDS: INSULIN (LEVEMIR) 100 UNITS/ML UNITS SQ SCH (06:29)
[2018-06-26] MEDS ORDERED: INSULIN (NOVOLOG) ASPART 100 UNITS/ML 10ML VIAL ONE ×2 (06:48→11:53)
[2018-06-26] MEDS: AMOX TR/POT CLAV 500MG/125MG TABLETS (FP) PO SCH (08:31)
[2018-06-26 09:00] LABS: BASO % 0.8 % (0-2.0); EOS % 6.4 % (0-4.5); LYMPH % 25.6 % (8-40); MCH 28.4 pg (25.7-33.7); MCHC 31.1 g/dl (32.0-36.0); MEAN CELL VOLUME 91.3 fl (80-96); MEAN PLT VOLUME 9.1 fl (7.5-11.1); MONO % 11.4 % (3.8-10.2); NEUT % 55.8 % (42.8-82.8); PLATELET COUNT 400 K/MM3 (134-434); RBC 3.18 M/mm3 (3.60-5.2); RDW 19.1 % (11.6-15.6)
[2018-06-26 09:25] LABS: ANION GAP 9 MMOL/L (8-16); BLOOD UREA NITROGEN 21 mg/dL (7-18); CALCIUM 8.8 mg/dL (8.5-10.1); CHLORIDE 115 mmol/L (98-107); CO2 20 mmol/L (21-32); CREATININE 1.5 mg/dL (0.55-1.3); GLUCOSE,RANDOM 91 mg/dL (74-106); MAGNESIUM 2.5 mg/dL (1.8-2.4); PHOSPHOROUS 4.3 mg/dL (2.5-4.9); POTASSIUM 4.5 mmol/L (3.5-5.1); SODIUM 145 mmol/L (136-145)
[2018-06-26] MEDS ORDERED: DEXTROSE 5%-WATER - 50 ML IVPB ONE (09:43)
[2018-06-26] MEDS ORDERED: cefTRIAXone SODIUM 1 GM VIAL ONE (09:43)
[2018-06-26] MEDS: LORazepam 0.5 MG TABLET PO SCH (09:52)
[2018-06-26] MEDS: BISACODYL 5 MG TABLET.DR (FP) PO SCH (09:53)
[2018-06-26] MEDS: risperiDONE 0.25 MG TABLET (FP) PO SCH (09:53)
[2018-06-26] MEDS: CEFTRIAXONE 1 GM in DEXTROSE 5%-WATER - 50 ML IVPB SCH (09:53)
[2018-06-26] MEDS: ASCORBIC ACID 500 MG TABLET (FP) PO SCH (09:53)
[2018-06-26] MEDS: APIXABAN 2.5 MG TABLET PO SCH (09:53)
[2018-06-26] MEDS: FERROUS SO4 325 MG TABLET (FP) PO SCH (09:53)
[2018-06-26] MEDS: BACITRACIN 15 GM TUBE TOPICAL OINTMENT TP SCH (10:00)
[2018-06-26] MEDS: COLLAGENASE CLOSTRIDIUM HIST. 30 GRAMS TUBE TP SCH (10:00)
[2018-06-26] MEDS ORDERED: PT OWN MED DRAWER 7, Y5N ONE (11:13)
--- NOTE | 2018-06-26 11:40 | PN ---
Progress Note, Physician - Current Medication List Current Medications: Active Medications Acetaminophen (Tylenol -) 650 mg PO Q4H PRN PRN Reason: FEVER Last Admin: 06/18/18 17:43 Dose: 650 mg Amoxicillin/Clavulanate Potassium (Augmentin - 500mg Tablet) 1 tab PO BID@0800, 1730 [facility] Last Admin: 06/26/18 08:31 Dose: 1 tab Apixaban (Eliquis -) 2.5 mg PO BID [facility] Last Admin: 06/26/18 09:53 Dose: 2.5 mg Ascorbic Acid (Vitamin C -) 500 mg PO DAILY [facility] Last Admin: 06/26/18 09:53 Dose: 500 mg Bacitracin (Bacitracin -) 1 applic TP BID [facility] Last Admin: 06/26/18 10:00 Dose: 1 applic Bisacodyl (Dulcolax -) 5 mg PO DAILY [facility] Last Admin: 06/26/18 09:53 Dose: 5 mg Clindamycin HCl (Cleocin -) 300 mg PO Q6HPO [facility] Last Admin: 06/26/18 05:46 Dose: 300 mg Collagenase (Santyl -) 1 applic TP DAILY [facility]; Protocol Last Admin: 06/25/18 14:30 Dose: 1 applic Ferrous Sulfate (Feosol -) 325 mg PO DAILY [facility] Last Admin: 06/26/18 09:53 Dose: 325 mg Ceftriaxone Sodium 1 gm/ (Dextrose) 50 mls @ 200 mls/hr IVPB DAILY [facility]; Protocol Last Admin: 06/26/18 09:53 Dose: 200 mls/hr Insulin Aspart (Novolog Vial Sliding Scale -) 1 vial SQ ACHS [facility]; Protocol Last Admin: 06/26/18 06:18 Dose: Not Given Insulin Detemir (Levemir Vial) 6 units SQ BID@0700,2200 [facility] Last Admin: 06/26/18 06:29 Dose: 6 units Lorazepam (Ativan -) 0.5 mg PO BID [facility] Last Admin: 06/26/18 09:52 Dose: 0.5 mg Ondansetron HCl (Zofran Injection) 4 mg IVPUSH Q6H PRN PRN Reason: NAUSEA Propranolol HCl (Inderal -) 40 mg PO BID [facility] Last Admin: 06/26/18 09:53 Dose: 40 mg Risperidone (Risperdal -) 0.25 mg PO BID [facility] Last Admin: 06/26/18 09:53 Dose: 0.25 mg - Objective Vital Signs: Vital Signs Temperature 99.3 F 06/26/18 07:00 Pulse Rate 84 06/26/18 07:00 Respiratory Rate 20 06/26/18 07:00 Blood Pressure 134/66 06/26/18 07:00 O2 Sat by Pulse Oximetry (%) 97 06/25/18 22:00 Labs: CBC, BMP 06/26/18 06:50 06/26/18 06:50
--- NOTE | 2018-06-26 12:27 | DS ---
Physical Examination Vital Signs: Vital Signs Temperature 99.3 F 06/26/18 07:00 Pulse Rate 84 06/26/18 07:00 Respiratory Rate 20 06/26/18 07:00 Blood Pressure 134/66 06/26/18 07:00 O2 Sat by Pulse Oximetry (%) 97 06/25/18 22:00 Labs: CBC, BMP 06/26/18 06:50 06/26/18 06:50 Discharge Summary Reason For Visit: SEPSIS,PRESSURE INJURY OF SKIN Current Active Problems Acute hypernatremia (Acute) Constipation (Acute) Cough (Acute) Counseling regarding goals of care (Acute) Decubitus ulcer of heel, bilateral, stage 3 (Acute) Diabetes insipidus (Acute) Dilated bile duct (Acute) Gallstones (Acute) Lactic acidosis (Acute) Multiple open wounds (Acute) 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 b/l le mri revealed acute plantar fascitis. Vascular evaluated, s/p debridement of sacral pressure ulcer. heel wound cultures grew multiple organisms including MRSA, blood cultures neg. ID managed, to continue clindamycin,augmentin, and ceftriaxone x 3 more days at SNF. Podiatry recommendation is continued conservative therapies including santyl and heel offloading. If the ulcers worsen will need operative debridement. Podiatry to follow in wound healing center in 1 week. Acute transaminitis noted, abd us revealed distended gb and gall stones. GI/ surgery advised cholecystectomy but the pt declines at the moment. LFTs improved , suspect possible passing of stone. MRCP w/out cbd stones, however possible gastric outlet syndrome, EGD and colonoscopy advised to exclude neoplasms, ulcers, GERD and vascular ectasias as the etiology but pt again declined, in the presence of her daughter. UGI series without acute findings. Pt underwent MBS, no signs of aspiration. Tolerating low Na/diabetic diet. Hypernatremia noted. Nephrology managed. Advises to continue 1.5l fluid restriction, avoid hyperglycemia. Recheck BMP in 3 days. Tejeda kept in while discharge to SNF to allow wound healing considering pt is incontinent, informed. Pt has been cleared by ID, nephrology, GI, and Vascular for discharge. Pt doing well, without any complaints, tolerating diet. vitals/labs stable. Pt is medically stable for discharge to SNF. Tejeda kept in to promote wound healing. 40 minutes spent in discharge planning. Condition: Improved - Instructions Diet, Activity, Other Instructions: resume prev diet, activity reposition q2hrs antibx x 3 days more 1.5L fluid/day BMP in 3 days per nephrology Referrals: Lauren Ohara MD [Staff Physician] - Chay Wills MD [Primary Care Provider] - Dane Bhagat MD [Staff Physician] - Disposition: NURSING HOME FACILITY - Home Medications Comprehensive Discharge Medication List: Ambulatory Orders Aa/Hydrolyzed Collagen, Whey [Lps 15-30 Liquid] 30 ml PO BID 05/19/18 Acetaminophen [Tylenol] 650 mg PO QID PRN 05/19/18 Apixaban [Eliquis -] 2.5 mg PO BID 05/19/18 Ascorbic Acid [Vitamin C -] 500 mg PO DAILY 05/19/18 Bacitracin - [Bacitracin Topical Ointment -] 1 applic TP BID 05/19/18 Bisacodyl [Bisacodyl -] 5 mg PO DAILY 05/19/18 Collagenase Clostridium Hist. [Santyl -] 1 applic TP BID 05/19/18 Ferrous Sulfate [Feosol] 1 tab PO DAILY 05/19/18 LORazepam [Ativan] 0.5 mg PO BID 05/19/18 Mvit,Calcium,Iron,Mins/A.acids [[facility] [place] Double Strength Capsule] 1 each PO DAILY 05/19/18 Polyethylene Glycol 3350 [Miralax 119 gm Btl -] 17 gm PO DAILY 05/19/18 Propranolol HCl 40 mg PO BID 05/19/18 Risperidone [Risperdal -] 0.25 mg PO BID 05/19/18 [place] Extract [Senna] 7.5 ml PO HS 05/19/18 Amox-Tr/K Cl [Augmentin 500-125mg Tablet -] 1 tab PO BID@0800,1730 3 Days tablet 06/26/18 Ceftriaxone [Rocephin -] 1 gm IVPB DAILY 3 Days vial 06/26/18 Clindamycin [Cleocin -] 300 mg PO Q6HPO 3 Days capsule 06/26/18 Insulin (Levemir) [Levemir Vial] 6 units SQ BID@0700,2200 units 06/26/18 Insulin Sliding Scale [Novolog Vial Sliding Scale -] 1 vial SQ ACHS units 06/26
--- NOTE | 2018-06-26 12:40 | PN ---
Progress Note, Physician History of Present Illness: Pt seen and examined at bedside. She is awake and alert. She denies shortness of breath. - Current Medication List Current Medications: Active Medications Acetaminophen (Tylenol -) 650 mg PO Q4H PRN PRN Reason: FEVER Last Admin: 06/18/18 17:43 Dose: 650 mg Amoxicillin/Clavulanate Potassium (Augmentin - 500mg Tablet) 1 tab PO BID@0800, 1730 [facility] Last Admin: 06/26/18 08:31 Dose: 1 tab Apixaban (Eliquis -) 2.5 mg PO BID [facility] Last Admin: 06/26/18 09:53 Dose: 2.5 mg Ascorbic Acid (Vitamin C -) 500 mg PO DAILY [facility] Last Admin: 06/26/18 09:53 Dose: 500 mg Bacitracin (Bacitracin -) 1 applic TP BID [facility] Last Admin: 06/26/18 10:00 Dose: 1 applic Bisacodyl (Dulcolax -) 5 mg PO DAILY [facility] Last Admin: 06/26/18 09:53 Dose: 5 mg Clindamycin HCl (Cleocin -) 300 mg PO Q6HPO [facility] Last Admin: 06/26/18 05:46 Dose: 300 mg Collagenase (Santyl -) 1 applic TP DAILY [facility]; Protocol Last Admin: 06/25/18 14:30 Dose: 1 applic Ferrous Sulfate (Feosol -) 325 mg PO DAILY [facility] Last Admin: 06/26/18 09:53 Dose: 325 mg Ceftriaxone Sodium 1 gm/ (Dextrose) 50 mls @ 200 mls/hr IVPB DAILY [facility]; Protocol Last Admin: 06/26/18 09:53 Dose: 200 mls/hr Insulin Aspart (Novolog Vial Sliding Scale -) 1 vial SQ ACHS [facility]; Protocol Last Admin: 06/26/18 11:58 Dose: 2 units Insulin Detemir (Levemir Vial) 6 units SQ BID@0700,2200 [facility] Last Admin: 06/26/18 06:29 Dose: 6 units Lorazepam (Ativan -) 0.5 mg PO BID [facility] Last Admin: 06/26/18 09:52 Dose: 0.5 mg Ondansetron HCl (Zofran Injection) 4 mg IVPUSH Q6H PRN PRN Reason: NAUSEA Propranolol HCl (Inderal -) 40 mg PO BID [facility] Last Admin: 06/26/18 09:53 Dose: 40 mg Risperidone (Risperdal -) 0.25 mg PO BID [facility] Last Admin: 06/26/18 09:53 Dose: 0.25 mg - Objective Vital Signs: Vital Signs Temperature 99.3 F 06/26/18 07:00 Pulse Rate 84 06/26/18 07:00 Respiratory Rate 20 06/26/18 07:00 Blood Pressure 134/66 06/26/18 07:00 O2 Sat by Pulse Oximetry (%) 97 06/25/18 22:00 Constitutional: Yes: Calm Eyes: Yes: Conjunctiva Clear HENT: Yes: Atraumatic Cardiovascular: Yes: S1, S2 Respiratory: Yes: CTA Bilaterally Gastrointestinal: Yes: Soft Genitourinary: Yes: Tejeda Present Musculoskeletal: Yes: Muscle Weakness Edema: No Neurological: Yes: Oriented Psychiatric: Yes: Oriented Labs: CBC, BMP 06/26/18 06:50 06/26/18 06:50 Problem List - Problems (1) Acute hypernatremia Code(s): E87.0 - HYPEROSMOLALITY AND HYPERNATREMIA (2) HTN (hypertension) Code(s): I10 - ESSENTIAL (PRIMARY) HYPERTENSION Qualifiers: Hypertension type: essential hypertension Qualified Code(s): I10 - Essential (primary) hypertension Assessment/Plan Current Medications Generic Name Dose Route Start Last Admin Trade Name Ariel PRN Reason Stop Dose Admin Acetaminophen 650 mg 06/16/18 00:21 06/18/18 17:43 Tylenol - PO 650 mg Q4H PRN Administration FEVER Amoxicillin/Clavulanate Potassium 1 tab 06/23/18 17:30 06/26/18 08:31 Augmentin - 500mg Tablet PO 1 tab BID@0800,1730 [facility] Administration Apixaban 2.5 mg 06/16/18 10:00 06/26/18 09:53 Eliquis - PO 2.5 mg BID [facility] Administration Ascorbic Acid 500 mg 06/16/18 10:00 06/26/18 09:53 Vitamin C - PO 500 mg DAILY [facility] Administration Bacitracin 1 applic 06/16/18 10:00 06/26/18 10:00 Bacitracin - TP 1 applic BID [facility] Administration Bisacodyl 5 mg 06/16/18 10:00 06/26/18 09:53 Dulcolax - PO 5 mg DAILY [facility] Administration Clindamycin HCl 300 mg 06/23/18 18:00 06/26/18 05:46 Cleocin - PO 300 mg Q6HPO [facility] Administration Collagenase 1 applic 06/16/18 10:00 06/25/18 14:30 Santyl - TP 1 applic DAILY [facility] Administration Protocol Ferrous Sulfate 325 mg 06/16/18 10:00 11 09:53 Feosol - PO 325 mg DAILY [facility] Administration Ceftriaxone Sodium 1 gm/ 50 mls @ 200 mls/hr 06/23/18 12:45 06/26/18 09:53 Dextrose IVPB 200 mls/hr DAILY [facility] Administration Protocol Insulin Aspart 1 vial 06/16/18 07:00 06/26/18 11:58 Novolog Vial Sliding Scale - SQ 2 units ACHS [facility] Administration Protocol Insulin Detemir 6 units 06/22/18 22:00 06/26/18 06:29 Levemir Vial SQ 6 units BID@0700,2200 [facility] Administration Lorazepam 0.5 mg 06/16/18 10:00 06/26/18 09:52 Ativan - PO 0.5 mg BID [facility] Administration Ondansetron HCl 4 mg 06/16/18 00:21 Zofran Injection IVPUSH Q6H PRN NAUSEA Propranolol HCl 40 mg 06/16/18 10:00 06/26/18 09:53 Inderal - PO 40 mg BID [facility] Administration Risperidone 0.25 mg 06/16/18 10:00 06/26/18 09:53 Risperdal - PO 0.25 mg BID [facility] Administration Impression 1. Hypernatremia 2. bipolar 3. DM 4. HTN 5. DVT 6. glucosuria 7. DI Plan - sodium is stable - urine output improved - monitor sodium as outpt - avoid saline - avoid hyperglycemia - likely has some renal involvement from lithium use Dr Bhagat
--- NOTE | 2018-06-26 13:15 | PN ---
Progress Note, Physician History of Present Illness: doing well continue current mgmt all cx reports noted abx plan given - Current Medication List Current Medications: Active Medications Acetaminophen (Tylenol -) 650 mg PO Q4H PRN PRN Reason: FEVER Last Admin: 06/18/18 17:43 Dose: 650 mg Amoxicillin/Clavulanate Potassium (Augmentin - 500mg Tablet) 1 tab PO BID@0800, 1730 [facility] Last Admin: 06/26/18 08:31 Dose: 1 tab Apixaban (Eliquis -) 2.5 mg PO BID [facility] Last Admin: 06/26/18 09:53 Dose: 2.5 mg Ascorbic Acid (Vitamin C -) 500 mg PO DAILY [facility] Last Admin: 06/26/18 09:53 Dose: 500 mg Bacitracin (Bacitracin -) 1 applic TP BID [facility] Last Admin: 06/26/18 10:00 Dose: 1 applic Bisacodyl (Dulcolax -) 5 mg PO DAILY [facility] Last Admin: 06/26/18 09:53 Dose: 5 mg Clindamycin HCl (Cleocin -) 300 mg PO Q6HPO [facility] Last Admin: 06/26/18 12:55 Dose: 300 mg Collagenase (Santyl -) 1 applic TP DAILY [facility]; Protocol Last Admin: 06/26/18 10:00 Dose: 1 applic Ferrous Sulfate (Feosol -) 325 mg PO DAILY [facility] Last Admin: 06/26/18 09:53 Dose: 325 mg Ceftriaxone Sodium 1 gm/ (Dextrose) 50 mls @ 200 mls/hr IVPB DAILY [facility]; Protocol Last Admin: 06/26/18 09:53 Dose: 200 mls/hr Insulin Aspart (Novolog Vial Sliding Scale -) 1 vial SQ ACHS [facility]; Protocol Last Admin: 06/26/18 11:58 Dose: 2 units Insulin Detemir (Levemir Vial) 6 units SQ BID@0700,2200 [facility] Last Admin: 06/26/18 06:29 Dose: 6 units Lorazepam (Ativan -) 0.5 mg PO BID [facility] Last Admin: 06/26/18 09:52 Dose: 0.5 mg Ondansetron HCl (Zofran Injection) 4 mg IVPUSH Q6H PRN PRN Reason: NAUSEA Propranolol HCl (Inderal -) 40 mg PO BID [facility] Last Admin: 11/02/18 09:53 Dose: 40 mg Risperidone (Risperdal -) 0.25 mg PO BID [facility] Last Admin: 06/26/18 09:53 Dose: 0.25 mg - Objective Vital Signs: Vital Signs Temperature 99.3 F 06/26/18 07:00 Pulse Rate 84 06/26/18 07:00 Respiratory Rate 20 06/26/18 09:00 Blood Pressure 134/66 06/26/18 07:00 O2 Sat by Pulse Oximetry (%) 99 06/26/18 09:00 Constitutional: Yes: No Distress, Calm Cardiovascular: Yes: Regular Rate and Rhythm Respiratory: Yes: Regular, CTA Bilaterally Gastrointestinal: Yes: Normal Bowel Sounds, Soft Musculoskeletal: Yes: WNL Extremities: Yes: Other Integumentary: Yes: Other Wound/Incision: Yes: Dressing Dry and Intact Neurological: Yes: Alert, Oriented Psychiatric: Yes: Alert, Oriented Labs: CBC, BMP 06/26/18 06:50 06/26/18 06:50 Assessment/Plan Problem List - Problems (1) Decubitus ulcer of heel, bilateral, stage 3 Code(s): L89.613 - PRESSURE ULCER OF RIGHT HEEL, STAGE 3; L89.623 - PRESSURE ULCER OF LEFT HEEL, STAGE 3 (2) Transaminitis Code(s): R74.0 - NONSPEC ELEV OF LEVELS OF TRANSAMNS & LACTIC ACID DEHYDRGNSE (3) History of DVT (deep vein thrombosis) Code(s): Z86.718 - PERSONAL HISTORY OF OTHER VENOUS THROMBOSIS AND EMBOLISM (4) Bipolar 1 disorder Code(s): F31.9 - BIPOLAR DISORDER, UNSPECIFIED (5) Functional quadriplegia Code(s): R53.2 - FUNCTIONAL QUADRIPLEGIA (6) HTN (hypertension) Code(s): I10 - ESSENTIAL (PRIMARY) HYPERTENSION Qualifiers: Hypertension type: essential hypertension Qualified Code(s): I10 - Essential (primary) hypertension (7) Lactic acidosis Code(s): E87.2 - ACIDOSIS (8) Diabetes Code(s): E11.9 - TYPE 2 DIABETES MELLITUS WITHOUT COMPLICATIONS Qualifiers: Diabetes mellitus type: type 2 Diabetes mellitus 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
[2018-06-26 13:57] VITALS: BP 115/57; PULSE 68; TEMP 99.5
--- NOTE | 2018-06-28 19:10 | CON.ID ---
Consult Consult Specialty:: infectious diseases Referred by:: dr monge Reason for Consultation:: non healing ulcer of the heels and sacral wounds infected - History of Present Illness Chief Complaint: weakness,ulcers of the sacral region,failure to thrive History of Present Illness: 73 year old female who was sent in from [facility] with worsening heel ulceration and failure to thrive. She was recently admitted for sepsis and AMILCAR secondary to sacral ulceration last month. She is being followed by wound care in [facility], however her heel ulcers have progressed. Facility also states she has been eating and drinking less and sent her in. Per Ms Natalie she complains of pain in both of her feet but otherwise says she is feeling ok. Denies fevers, chills, lightheadedness, dizziness, chest pain or pressure, shortness of breath, nausea, vomiting, diarrhea, constipation, or leg swelling. She feels that she is eating and drinking without difficulty and in sufficient amounts. Daughter at bedside stating that she has been coughing for the past 2 weeks. - History Source History Provided By: Patient, Family Member Limitations to Obtaining History: Clinical Condition - Past Medical History Cardio/Vascular: Yes: HTN, Hyperlipdemia Hepatobiliary: Yes: Cholelithiasis, Other (chronically dilated CBD) Psych: Yes: Bipolar Endocrine: Yes: Diabetes Mellitus - Past Surgical History Additional Surgical History: Uterine polyps removed - Alcohol/Substance Use Hx Alcohol Use: No History of Substance Use: reports: None - Smoking History Smoking history: Never smoked Have you smoked in the past 12 months: No If you are a former smoker, when did you quit?: when entered snf - Social History Usual Living Arrangement: [facility] ADL: Support Services Occupation: retired History of Recent Travel: No Home Medications - Allergies Allergies/Adverse Reactions: Allergies Allergy/AdvReac Type Severity Reaction Status Date / Time No Known Allergies Allergy Verified 05/19/18 18:55 - Home Medications Home Medications: Ambulatory Orders RX: Aa/Hydrolyzed Collagen, Whey [Lps 15-30 Liquid] 30 ml PO BID 05/19/18 RX: Acetaminophen [Tylenol] 650 mg PO QID PRN 05/19/18 RX: Apixaban [Eliquis -] 2.5 mg PO BID 05/19/18 RX: Ascorbic Acid [Vitamin C -] 500 mg PO DAILY 05/19/18 RX: Bacitracin - [Bacitracin Topical Ointment -] 1 applic TP BID 05/19/18 RX: Bisacodyl [Bisacodyl -] 5 mg PO DAILY 05/19/18 RX: Collagenase Clostridium Hist. [Santyl -] 1 applic TP BID 05/19/18 RX: Ferrous Sulfate [Feosol] 1 tab PO DAILY 05/19/18 RX: LORazepam [Ativan] 0.5 mg PO BID 05/19/18 RX: Mvit,Calcium,Iron,Mins/A.acids [[place] Double Strength Capsule] 1 each PO DAILY 05/19/18 RX: Polyethylene Glycol 3350 [Miralax 119 gm Btl -] 17 gm PO DAILY 05/19/18 RX: Propranolol HCl 40 mg PO BID 05/19/18 RX: Risperidone [Risperdal -] 0.25 mg PO BID 05/19/18 RX: Senna [place] Extract [Senna] 7.5 ml PO HS 05/19/18 RX: Amox-Tr/K Cl [Augmentin 500-125mg Tablet -] 1 tab PO BID@0800,1730 3 Days tablet 06/26/18 RX: Ceftriaxone [Rocephin -] 1 gm IVPB DAILY 3 Days vial 06/26/18 RX: Clindamycin [Cleocin -] 300 mg PO Q6HPO 3 Days capsule 06/26/18 RX: Insulin (Levemir) [Levemir Vial] 6 units SQ BID@0700,2200 units 06/26/18 RX: Insulin Sliding Scale [Novolog Vial Sliding Scale -] 1 vial SQ ACHS units 06/26/18 Family Disease History - Family Disease History Family Disease History: Heart Disease: Father (had [place]), Brother ( 63 stomach cancer), [place]: Sister (breast cancer) Review of Systems - Review of Systems Constitutional: reports: Weakness Eyes: reports: No Symptoms HENT: reports: No Symptoms Neck: reports: No Symptoms Cardiovascular: reports: No Symptoms Respiratory: reports: No Symptoms Gastrointestinal: reports: No Symptoms Genitourinary: reports: No Symptoms Musculoskeletal: reports: Back Pain Integumentary: reports: Wound (legs and sacrum) Neurological: reports: No Symptoms Endocrine: reports: No Symptoms Hematology/Lymphatic: reports: No Symptoms Psychiatric: reports: No Symptoms Physical Exam Vital Signs: Vital Signs Temperature 99.5 F 06/26/18 13:56 Pulse Rate 68 06/26/18 13:56 Respiratory Rate 20 06/26/18 09:00 Blood Pressure 115/57 L 06/26/18 13:56 O2 Sat by Pulse Oximetry (%) 99 06/26/18 09:00 Constitutional: Yes: Calm, Mild Distress, Thin Eyes: Yes: Conjunctiva Clear HENT: Yes: Atraumatic, Normocephalic Neck: Yes: Supple, Trachea Midline Cardiovascular: Yes: Regular Rate and Rhythm Respiratory: Yes: Regular, CTA Bilaterally Gastrointestinal: Yes: Normal Bowel Sounds, Soft Extremities: Yes: Other (b/l heel ulcers,) Integumentary: Yes: Other (heel ulcers) Wound/Incision: Yes: Dressing Removed, Other (wounds looked at) Neurological: Yes: Alert, Oriented Psychiatric: Yes: Alert, Oriented Labs: CBC, BMP 06/26/18 06:50 06/26/18 06:50 Imaging - Results Chest X-ray: Report Reviewed, Image Reviewed Ultrasound: Report Reviewed, Image Reviewed Assessment/Plan Problem List - Problems (1) Decubitus ulcer of heel, bilateral, stage 3 Code(s): L89.613 - PRESSURE ULCER OF RIGHT HEEL, STAGE 3; L89.623 - PRESSURE ULCER OF LEFT HEEL, STAGE 3 (2) Transaminitis Code(s): R74.0 - NONSPEC ELEV OF LEVELS OF TRANSAMNS & LACTIC ACID DEHYDRGNSE (3) History of DVT (deep vein thrombosis) Code(s): Z86.718 - PERSONAL HISTORY OF OTHER VENOUS THROMBOSIS AND EMBOLISM (4) Bipolar 1 disorder Code(s): F31.9 - BIPOLAR DISORDER, UNSPECIFIED (5) Functional quadriplegia Code(s): R53.2 - FUNCTIONAL QUADRIPLEGIA (6) HTN (hypertension) Code(s): I10 - ESSENTIAL (PRIMARY) HYPERTENSION Qualifiers: Hypertension type: essential hypertension Qualified Code(s): I10 - Essential (primary) hypertension (7) Lactic acidosis Code(s): E87.2 - ACIDOSIS (8) Diabetes Code(s): E11.9 - TYPE 2 DIABETES MELLITUS WITHOUT COMPLICATIONS Qualifiers: Diabetes mellitus type: type 2 Diabetes mellitus 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 adjuster insulin use: with snf use Diabetes mellitus complication status: with skin complications Diabetes mellitus complication detail: with foot ulcer Qualified Code(s): E11.621 - Type 2 diabetes mellitus with foot ulcer; L97.509 - Non-pressure chronic ulcer of other part of unspecified foot with unspecified severity; Z79.4 - prototype deicer assembler (current) use of insulin (9) Cough Code(s): R05 - COUGH patient coming with multiple medical problems and failure to thrive plan will start on broad spectrum abx wound care will require imaging of the heel to r/o osteo patient with sacral wound nutrition aspiration precautions rest as per the team
== END 2018-06-26 16:34 | DRG 579 ==
LOC: JER 11:58 → JERBED 16:00 → J6S 06-12 09:52
PROVIDERS: ADMIT Internal Medicine; ATTEND Internal Medicine
PROC: 30233N1 Transfusion of Nonautologous Red Blood Cells into Peripheral Vein, Percutaneous Approach (ICD-10-PCS; 2018-06-15)
PROC: 0KBP0ZZ Excision of Left Hip Muscle, Open Approach (ICD-10-PCS; principal; 2018-06-15 14:00)
DX: L89.154 Pressure ulcer of sacral region, stage 4 (principal); R53.2 Functional quadriplegia; E87.2 Acidosis; E87.0 Hyperosmolality and hypernatremia; N17.9 Acute kidney failure, unspecified; L89.613 Pressure ulcer of right heel, stage 3; L89.893 Pressure ulcer of other site, stage 3; E11.621 Type 2 diabetes mellitus with foot ulcer; K80.20 Calculus of gallbladder without cholecystitis without obstruction; R74.0 Nonspecific elevation of levels of transaminase and lactic acid dehydrogenase [LDH]; F31.9 Bipolar disorder, unspecified; R62.7 Adult failure to thrive; N18.2 Chronic kidney disease, stage 2 (mild); K59.00 Constipation, unspecified; E86.0 Dehydration; E78.5 Hyperlipidemia, unspecified; I12.9 Hypertensive chronic kidney disease with stage 1 through stage 4 chronic kidney disease, or unspecified chronic kidney disease; D64.9 Anemia, unspecified
CPT/HCPCS: 36415; 36430; 71045-TC-FY; 73610-TC-LT-FY; 73610-TC-RT-FY; 73630-TC-LT; 73630-TC-RT-FY; 73718-LT; 73718-TC; 74181-TC; 74230-TC-FY; 74245-TC-FY; 76705-TC; 80048; 80053; 80076; 80178; 81003; 81015; 82105; 82150; 82172; 82247; 82436; 82465; 82607; 82746; 82947; 82962; 82977; 83010; 83516; 83605; 83615; 83690; 83735; 83883; 83935; 84100; 84133; 84155; 84165; 84300; 84450; 84460; 84478; 85025; 85044; 85651; 86038; 86140; 86301; 86704; 86706; 86708; 86803; 86850; 86900; 86901; 86922; 87040; 87070; 87086; 87186; 87205; 87340; 90688; 92611-GN; 93005; 93010; 94640; 94760; 97161-GP; 99285-25; G0008; G0480; J0131; J2597; J7030; P9058

== ENCOUNTER 2018-07-21 18:27 | Inpatient (IN) | payer OTHER ==
[2018-07-21 18:44] VITALS: BMI 25.6
--- NOTE | 2018-07-21 18:47 | PDOC ---
History of Present Illness - General Chief Complaint: Revisit, Lab Variance Stated Complaint: ABNORMAL LABS Time Seen by Provider: 07/21/18 18:46 - History of Present Illness Initial Comments: 07/21/18 19:57 The patient is a 73 year old female with a history of HTN, HLD, DM, Afib, sacral and heel wounds who presents from her retirement for abnormal labs. The patient is accompanied by family who assist in providing the history. They note that the patient is to go to surgery in 2 days due to her sacral wound. Per the retirement, they noted abnormal bmp and elevated wbc on the patient's labs and sent the patient for stabilization prior to her surgery in 2 days. The patient otherwise denies fevers, chills, SOB, chest pain, nausea, vomiting, abdominal pain, or changes with urination or bowel movements. Past History - Past Medical History Allergies/Adverse Reactions: Allergies Allergy/AdvReac Type Severity Reaction Status Date / Time No Known Allergies Allergy Verified 05/19/18 18:55 Home Medications: Ambulatory Orders Aa/Hydrolyzed Collagen, Whey [Lps 15-30 Liquid] 30 ml PO BID 05/19/18 Acetaminophen [Tylenol] 650 mg PO QID PRN 05/19/18 Apixaban [Eliquis -] 2.5 mg PO BID 05/19/18 Ascorbic Acid [Vitamin C -] 500 mg PO DAILY 05/19/18 Bacitracin - [Bacitracin Topical Ointment -] 1 applic TP BID 05/19/18 Bisacodyl [Bisacodyl -] 5 mg PO DAILY 05/19/18 Collagenase Clostridium Hist. [Santyl -] 1 applic TP BID 05/19/18 Ferrous Sulfate [Feosol] 1 tab PO DAILY 05/19/18 LORazepam [Ativan] 0.5 mg PO BID 05/19/18 Mvit,Calcium,Iron,Mins/A.acids [[place] Double Strength Capsule] 1 each PO DAILY 05/19/18 Polyethylene Glycol 3350 [Miralax 119 gm Btl -] 17 gm PO DAILY 05/19/18 Propranolol HCl 40 mg PO BID 05/19/18 Risperidone [Risperdal -] 0.25 mg PO BID 05/19/18 Senna [place] Extract [Senna] 7.5 ml PO HS 05/19/18 Ceftriaxone [Rocephin -] 1 gm IVPB DAILY 3 Days vial 06/26/18 Clindamycin [Cleocin -] 300 mg PO Q6HPO 3 Days capsule 06/26/18 Insulin (Levemir) [Levemir Vial] 6 units SQ BID@0700,2200 units 06/26/18 Insulin Sliding Scale [Novolog Vial Sliding Scale -] 1 vial SQ ACHS units 06/26 Ammonium Lactate Lotion [Lac-Hydrin 12] 1 applic TP TID PRN 07/22/18 Docusate Sodium [Colace] 2 cap PO DAILY 07/22/18 Enoxaparin Sodium [Lovenox] 80 mg SQ DAILY 07/22/18 Insulin Glargine,Hum.rec.anlog [Lantus Solostar PEN -] 14 units SQ AM 07/22/18 Insulin Lispro [Humalog Kwikpen U-100] See Protocol SQ TID 07/22/18 Sennosides [Senna] 2 tab PO DAILY 07/22/18 Anemia: Yes Asthma: No Cancer: No Cardiac Disorders: (afib) CVA: No COPD: No CHF: No Dementia: No Diabetes: Yes GI Disorders: Yes (Constipation) Disorders: No HTN: Yes Hypercholesterolemia: No Liver Disease: No Seizures: No Thyroid Disease: No - Surgical History Abdominal Surgery: No Appendectomy: No Cardiac Surgery: No Lung Surgery: No Neurologic Surgery: No Orthopedic Surgery: No - Immunization History Immunization Up to Date: Yes - Suicide/Smoking/Psychosocial Hx Smoking History: Never smoked Have you smoked in the past 12 months: Yes If you are a former smoker, when did you quit?: when entered retirement Information on smoking cessation initiated: No Hx Alcohol Use: No Drug/Substance Use Hx: No Substance Use Type: None Review of Systems - Review of Systems Comments:: 07/21/18 20:01 Constitutional: No fevers, chills, fatigue, malaise HEENT: No Rhinorrhea, nasal congestion, visual changes Cardiovascular: No chest pain, syncope, palpitations, lightheadedness Respiratory: No Cough, SOB, Hemoptysis, Gastrointestinal: No Abdominal pain, Nausea, Vomiting, Constipation, Diarrhea, Melena Genitourinary: No Dysuria, Frequency, Urgency, Hesitancy, Hematuria, Flank pain Musculoskeletal: No Myalgia, arthralgia Skin: Sacral wound. Heel wounds. No rashes, itching, bruising, pallor Neurologic: No Headache, Dizziness, Numbness, Weakness, or Tingling Psychiatric: No Hallucinations. No SI or HI *Physical Exam - Vital Signs Last Vital Signs Temp Pulse Resp BP Pulse Ox 133 H 20 120/90 96 07/21/18 18:40 07/21/18 18:40 07/21/18 18:40 07/21/18 18:40 - Physical Exam Comments: 07/21/18 20:03 General Appearance: Nourished. No Apparent Distress HEENT: No Pharyngeal Erythema, Tonsillar Exudate, Tonsillar Erythema Neck: No Cervical Lymphadenopathy Respiratory/Chest: Lungs Clear, Normal Breath Sounds. No Crackles, Rales, Rhonchi, Wheezing Cardiovascular: Regular Rhythm, Regular Rate. No Murmur, Gallops, Rubs Gastrointestinal/Abdominal: Normal Bowel Sounds, Soft. No Guarding, Rebound, Tenderness Musculoskeletal: No CVA Tenderness Extremity: Wounds noted to the bilateral heels with foul smelling discharge noted. Large unstagable wound to the sacrum with annemarie pus. Normal Capillary Refill Integumentary: Normal Color, Dry, Warm Neurologic: Fully Oriented, Alert, Normal Mood/Affect, Normal Response, Moderate Sedation - Procedure Monitoring Vital Signs: Procedure Monitoring Vital Signs Temperature Pulse Rate 133 H 07/21/18 18:40 Respiratory Rate 20 07/21/18 18:40 Blood Pressure 120/90 07/21/18 18:40 O2 Sat by Pulse Oximetry (%) 96 07/21/18 18:40 ED Treatment Course - LABORATORY CBC & Chemistry Diagram: 07/23/18 06:15 07/23/18 06:15 Medical Decision Making - Medical Decision Making 07/21/18 20:05 The patient is a 73 year old female with a history of HTN, HLD, DM, Afib, sacral and heel wounds who presents from her retirement for abnormal labs. Given the patient's history and physical exam, we will obtain a cbc, cmp, lactate, coags, ekg to evaluate further. We will treat with iv fluids and zosyn and the patient will likely require admission for further management. We will continue to monitor and reassess while here in the ED. 07/21/18 22:42 CBC, cmp are unremarkable. Lactate is elevated. Given the patient's labs and physical exam, she will require admission for further management. We discussed the case with the admitting team who accepted the patient for admission. *DC/Admit/Observation/Transfer Diagnosis at time of Disposition: Wound infection, Hyperglycemia, Lactic acidosis - Discharge Dispostion Condition at time of disposition: Stable Decision to Admit order: Yes - Referrals - Patient Instructions - Post Discharge Activity
[2018-07-21 20:24] LABS: BASO % 0.6 % (0-2.0); EOS % 3.9 % (0-4.5); HEMATOCRIT 26.3 % (32.4-45.2); HEMOGLOBIN 9.1 GM/dL (10.7-15.3); MCH 30.3 pg (25.7-33.7); MCHC 34.6 g/dl (32.0-36.0); MEAN CELL VOLUME 87.4 fl (80-96); MEAN PLT VOLUME 8.2 fl (7.5-11.1); MONO % 9.7 % (3.8-10.2); NEUT % 72.8 % (42.8-82.8); PLATELET COUNT 595 K/MM3 (134-434); RDW 17.6 % (11.6-15.6)
[2018-07-21 20:36] LABS: INR 1.11 (0.83-1.09); PROTHROMBIN TIME (PATIENT) 13.1 SEC (9.7-13.0)
[2018-07-21 20:39] LABS: ACTIVATED PTT 28.7 SECONDS (25.2-36.5)
[2018-07-21 21:00] LABS: ALBUMIN 1.7 g/dl (3.4-5.0); ANION GAP 11 MMOL/L (8-16); BILIRUBIN,TOTAL 0.3 mg/dL (0.2-1); BLOOD UREA NITROGEN 20 mg/dL (7-18); CALCIUM 7.8 mg/dL (8.5-10.1); CHLORIDE 98 mmol/L (98-107); CO2 21 mmol/L (21-32); CREATININE 1.2 mg/dL (0.55-1.3); POTASSIUM 4.3 mmol/L (3.5-5.1); SGOT/AST 71 U/L (15-37); SGPT/ALT 128 U/L (13-61); SODIUM 131 mmol/L (136-145); TOT PROT 5.9 g/dl (6.4-8.2)
[2018-07-21 21:01] LABS: ALK PHOS 255 U/L (45-117)
[2018-07-21 21:06] LABS: GLUCOSE,RANDOM 376 mg/dL (74-106)
[2018-07-21] MEDS ORDERED: SODIUM CHLORIDE 1,000 ML IV STA (21:14)
[2018-07-21] MEDS ORDERED: PIPERACILLIN/TAZOB 4.5 GM 4.5 GM in DEXTROSE 5%-WATER 100 ML IVPB ONE (21:14)
[2018-07-21] MEDS ORDERED: PIPERACILLIN/TAZOB 4.5 GM 4.5 GM/100 ML BAG IVPB ONE (21:27)
--- NOTE | 2018-07-21 22:08 | PDOC ---
Attending Attestation - HPI HPI: 07/21/18 22:12 The patient is a 73 year old female with a history of HTN, HLD, DM, Afib, sacral and heel wounds who presents from her [facility] rehab home for abnormal lab work. Patients family member is at bedside and providing the medical history. Patient is scheduled to have surgery in 2 days for a sacral wound. Patient was noted to have an elevated BMP and WBC at the rehab facility and was sent in to the ER for the further evaluation. Patient denies any fevers, chills, SOB, chest pain, nausea, vomiting, abdominal pain, or changes with urination or bowel movements. Vascular: Dr. Solis - Physicial Exam PE: ADULT EXAM GENERAL: Awake, alert, and fully oriented, in no acute distress HEAD: No signs of trauma EYES: PERRLA, EOMI, sclera anicteric, conjunctiva clear ENT: Auricles normal inspection, hearing grossly normal, nares patent. Moist mucosa NECK: Normal ROM, supple, no lymphadenopathy, JVD, or masses LUNGS: Breath sounds equal, clear to auscultation bilaterally. No wheezes, and no crackles HEART: Regular rate and rhythm, normal S1 and S2, no murmurs, rubs or gallops ABDOMEN: Soft, nontender, normoactive bowel sounds. No guarding, no rebound. No masses EXTREMITIES: Normal range of motion, no edema. No erythema or tenderness. DP/PT pulses 2+ and symmetric. Warm and well perfused. NEUROLOGICAL: Moves all extremities. Normal speech, normal gait SKIN: Warm, Dry, normal turgor. (+) Large black gangranese wound on the left heel with odor. (+) Wound on the side of his left leg. <Ame Velazquez - Last Filed: 07/21/18 22:12> - Resident Resident Name: Vipul Mcfarland - ED Attending Attestation I have performed the following: I have examined & evaluated the patient, The case was reviewed & discussed with the resident, I agree w/resident's findings & plan, Exceptions are as noted - HPI HPI: 07/21/18 22:03 07/21/18 22:09 - Physicial Exam PE: 07/21/18 22:08 07/21/18 23:26 large sacral decubitous ulcer unstageable. size of a fist. some yellow exudate. surrounding area no erythema. - Medical Decision Making 07/21/18 22:09 73 yo HTN, HLD, DM, Afib, sacral and heel wounds here from [facility] for abnormal lab values. per pt family at bedside she is scheduled for surgery on her decubitous wounds this week, no f/c no sob no cp. no other complaints. awake alert lungs clear heart rrr no mrg. abd soft nt nd. ext wwp. left heel with foul smelling ulcer necrotic left heel. 2 + dp/ pt. left lateral calf wound differential sepsis, dka, osteo, plan cxr ua labs cultures. lactate. will given zosyn, and vanco. will admit for infected ulcer. . 07/21/18 22:09 <Yuliya Hernandez - Last Filed: 07/21/18 23:26> Heart Score/ECG Review #1 General ECG Interpretation: Sinus Rhythm, Normal Intervals, No acute ischemic changes Compared to previous ECG there are: Other (122 sinus tachycardia.) <Yuliya Hernandez - Last Filed: 07/21/18 23:26>
[2018-07-21] MEDS ORDERED: VANCOMYCIN 1,000 MG in DEXTROSE 5%-WATER - 250 ML IVPB ONE (22:10)
[2018-07-21] MEDS ORDERED: ACETAMINOPHEN 1000 MG/100 ML VIAL (NON FORMULARY) IVPB ONE (23:10)
[2018-07-21] MEDS ORDERED: VANCOMYCIN 1 GRAM (PRE-DOCKED) 1,000 MG/250 ML BAG IVPB ONE (23:19)
[2018-07-22] MEDS ORDERED: SODIUM CHLORIDE 1,000 ML IV STA (00:07)
--- NOTE | 2018-07-22 00:08 | PN ---
Teaching Attending Note Name of Resident: Ean Rodriguez ATTENDING PHYSICIAN STATEMENT I saw and evaluated the patient. I reviewed the resident's note and discussed the case with the resident. I agree with the resident's findings and plan as documented. SUBJECTIVE: Seen and examined; pateint was sent in by [facility] for leukocytosis, etc. and is planned to have debridement of her sacral sound with Dr. Solis on 07/23. She has a complex PMH which involves failure to thrive, DM, recent DVT on eliquis, cholelithiasis with likely need for cholecystectomy per sgy last admit. She has been hospitalized frequently, with a long stay with last month and a long stay at [facility] prior to that admission. She is a very poor historian. Denies annemarie abdominal pain, n/v/d. She got 1L fluid which resolved HR in the ER. Review of [facility] records show that Dr. Solis requested Eliquis to be held prior to procedure which we will do. She was initially febrile to 102. She will be admitted to the medicine service with surgical consultation. For further information on previous admit please refer to the DC summary from last visit. 10 sys ROS done and negative aside from HPI PMH and PSH reviewed FH asked and noncontributory Socially [facility] resident, bedbound, no EtOH; remote history of smoking Medication list reviewed OBJECTIVE: VS, labs, imaging reviewed NAD, resting in bed RRR s1/2 no mgr; initially tachycardic now in the 80s Lungs CTAB with sym expansion NT ND +BS 8x10cm L heel with eschar, unstagable. Foul smelling R-buttocks round aprox. fist-sized with granulation tissue and appropriate bandaging CN2-12 wnl, no fnd Labs show WBC 10 with glucose high 300s and Na 131; LA 2.5 initially. Albumin is very low at 1.7 Imaging pending; XR of the buttock and the foot will be taken to ensure no free air formation Old MRCP, foot MRI reviewed Old consults reviewed ASSESSMENT AND PLAN: Mrs. Estrada presents with sepsis likely 2/2 wound infections which will need debridement; her overall presentation is confounded by several factors. 1) Sepsis -Likely 2/2 wound infection; another source to consider is GI (given her h/o dilated CBD to 1cm with cholecystitis but negative ERCP and refusal of further procedures by the patient) so will followup an US of the RUQ -Hydrated in ER; PRN APAP for fever, trend white count, HR already improved so will keep on LR@100/hr and monitor fluid status -Broad coverage; at high risk for resistent organisms given recent hospitalization, [facility] resident, chronic wound. Culture wound and blood and taper down PRN. She has seen ID in the past so will involve her specialist. Recently treated with clinda/ceft/aug -Check imaging of the wound areas with plain films to ensure no gas forming infection -She will need debridement of the wounds with Dr. Solis; he is consulted. Appreciate his input. 2) Hyponatremia -Likely pseudohyponatremia given the glucose of near 400 with potential contribution from other source, likely hypovolemic etiologies. She had issues with hypERnatremia in the past. Will correct the glucose and check serum and urine osm, urine Na 3) IDDM with hyperglycemia -Hyperglycemic reaction to sepsis; continue with baseline insulin and SSI using appropriate doses PRN if marked hypergly again. -A1c as OP 4) Subacute DVT -Hold eliquis for procedure -Obtain all records and discuss when or if she should restart her eliquis at all after the debridement. She was on a dose of Lovenox 80 at the [facility] (which is more than 1mg/kg as she weighs 60kg) that was given today when the eliquis was held; will discuss what would be optimal from surgical perspective for AC in the morning prior to mitigate any risks this DVT provides while also accomodating for procedure. 5) Cholelithiasis with Dilated CBD (1cm) -Seen on last hospitalization. Per DC summary recommended cholecystectomy but was refused by pateint. As stated, though the wounds are far more likely a cause, we should get a RUQ US to monitor if any progression or resolution of the prior findings. Her LFTs are very slightly above their level at the time of DC. She has been seen by GI in the past at this institution. 5) Possible GOO vs. Gastroparesis -Seen on MRCP last time she was here; endoscopic evaluation was recommended but was refused by patient. Monitor for signs of GOO. This was noted on the MRCP; it could also represent the image showing a transition that may not actually represent any diagnosis 6) Failure to Thrive in Adult -Albumin quite low at 1.7 with poor PO intake, etc. -Consulting nutrition, checking prealbumin 7) HTN -I am assuming the propranolol she was on is for this; we will hold given the sepsis and restart when clinically acceptable. 8) Thrombocytosis -Trend, assuming reactive 9) Transaminitis -Per #5; will trend her CMP 10) Achilles Tendinitis with tendon tear -Seen on old MRI; PRN management, OP followup. Avoid FQ type abx due to the risk of futher tendon rupture Full Code; I discussed this with daughter. Goals of care have not, per her ( who is HCP) something that was ever ventured to be discussed in the past.
--- NOTE | 2018-07-22 00:42 | HP ---
CHIEF COMPLAINT: Sacral and heel ulcers PCP: Johann HISTORY OF PRESENT ILLNESS: 73 yo female with PMH of HTN, HLD, IDDM, recent DVT on Eliquis, presented from [facility] for abnormal labs and worsening sacral and heel ulcers. As per the daughter, the hemoglobin was noted to be low and they wanted to send her to the hospital for optimization for a scheduled wound debridement in the OR with Dr. Solis on . She has had these wounds for 2-3 months according to the daughter as well, though this is the worst they have all been. She currently complains of pain in both of the heel ulcers which she states she usually does not have. She endorses feeling more "shaky" than normal, though she denies any recent fevers, chills, SOB, cough, chest pain, n/v/d. ER course was notable for: (1) Tachycardic to 133, EKG sinus tach (122), temp 102.3, WBC 10 (2) Zosyn, 1L NS (3) H/H 9.1/26.3, baseline, (4) Glucose 376, no Gap, UA pending Recent Travel: none PAST MEDICAL HISTORY: As above PAST SURGICAL HISTORY: Social History: Smokin/2 ppd for 50 yrs, quit a few months ago when going into the skilled nursing Alcohol: denies Drugs: denies Family History: Allergies No Known Allergies Allergy (Verified 05/19/18 18:55) HOME MEDICATIONS: Home Medications Medication Instructions Recorded Aa/Hydrolyzed Collagen, Whey [Lps 30 ml PO BID 05/19/18 15-30 Liquid] Acetaminophen [Tylenol] 650 mg PO QID PRN 05/19/18 Apixaban [Eliquis -] 2.5 mg PO BID 05/19/18 Ascorbic Acid [Vitamin C -] 500 mg PO DAILY 05/19/18 Bacitracin - [Bacitracin Topical 1 applic TP BID 05/19/18 Ointment -] Bisacodyl [Bisacodyl -] 5 mg PO DAILY 05/19/18 Collagenase Clostridium Hist. 1 applic TP BID 05/19/18 [Santyl -] Ferrous Sulfate [Feosol] 1 tab PO DAILY 05/19/18 LORazepam [Ativan] 0.5 mg PO BID 05/19/18 Mvit,Calcium,Iron,Mins/A.acids 1 each PO DAILY 05/19/18 [[place] Double Strength Capsule] Polyethylene Glycol 3350 [Miralax 17 gm PO DAILY 05/19/18 119 gm Btl -] Propranolol HCl 40 mg PO BID 05/19/18 Risperidone [Risperdal -] 0.25 mg PO BID 05/19/18 Senna [place] Extract [Senna] 7.5 ml PO HS 05/19/18 Ceftriaxone [Rocephin -] 1 gm IVPB DAILY 3 Days vial 06/26/18 Clindamycin [Cleocin -] 300 mg PO Q6HPO 3 Days capsule 06/26/18 Insulin (Levemir) [Levemir Vial] 6 units SQ BID@0700,2200 units 06/26/18 Insulin Sliding Scale [Novolog 1 vial SQ ACHS units 06/26/18 Vial Sliding Scale -] REVIEW OF SYSTEMS CONSTITUTIONAL: Absent: fever, chills, diaphoresis, generalized weakness, malaise, loss of appetite, weight change HEENT: Absent: rhinorrhea, nasal congestion, throat pain, throat swelling, difficulty swallowing, mouth swelling, ear pain, eye pain, visual changes CARDIOVASCULAR: Absent: chest pain, syncope, palpitations, irregular heart rate, lightheadedness , peripheral edema RESPIRATORY: Absent: cough, shortness of breath, dyspnea with exertion, orthopnea, wheezing, stridor, hemoptysis GASTROINTESTINAL: Absent: abdominal pain, abdominal distension, nausea, vomiting, diarrhea, constipation, melena, hematochezia GENITOURINARY: Absent: dysuria, frequency, urgency, hesitancy, hematuria, flank pain, genital pain MUSCULOSKELETAL: Absent: myalgia, arthralgia, joint swelling, back pain, neck pain SKIN: sacral ulcer, b/l heel ulcers, Absent: rash, itching, pallor HEMATOLOGIC/IMMUNOLOGIC: Absent: easy bleeding, easy bruising, lymphadenopathy, frequent infections ENDOCRINE: Absent: unexplained weight gain, unexplained weight loss, heat intolerance, cold intolerance NEUROLOGIC: Absent: headache, focal weakness or paresthesias, dizziness, unsteady gait, seizure, mental status changes, bladder or bowel incontinence PSYCHIATRIC: Absent: anxiety, depression, suicidal or homicidal ideation, hallucinations. PHYSICAL EXAMINATION Vital Signs - 24 hr 07/21/18 07/21/18 18:40 23:03 Temperature 102.3 F H Pulse Rate 133 H Respiratory 20 Rate Blood Pressure 120/90 O2 Sat by Pulse 96 Oximetry (%) GENERAL: A&O, no acute distress HEAD: Normocephalic, atraumatic. EYES: Pupils reactive to light, left pupil more dilated than right, no scleral icterus EARS, NOSE, THROAT: oropharynx clear without exudates. Moist mucous membranes. NECK: supple without lymphadenopathy LUNGS: CTA b/l, no crackles or wheezes HEART: Tachycardic, regular rhythm, normal S1 and S2 without murmur ABDOMEN: Soft, nontender to palpation, normoactive bowel sounds : Tejeda in place draining straw colored urine EXTREMITIES: 1+ pulses, wounds: right ankle 1cm X 1cm, right post foot 1 cm X 1cm, right heel 10cm X 8cm, left post foot 1cm X 1cm, left heel 8cm X 7cm, minimal purulent foul smelling drainage NEUROLOGICAL: Cranial nerves II-XII grossly intact. minimal speech, says she does not speak well but can appropriately answer questioning with short responses PSYCHIATRIC: Cooperative. Good eye contact. Appropriate mood and affect. SKIN: Sacral ulcer 14cm X 8cm X 3cm Laboratory Results - last 24 hr 07/21/18 07/21/18 07/21/18 20:10 20:10 20:10 WBC 10.0 RBC 3.00 L Hgb 9.1 L Hct 26.3 L MCV 87.4 MCH 30.3 D MCHC 34.6 RDW 17.6 H Plt Count 595 H MPV 8.2 Absolute Neuts (auto) 7.3 Neutrophils % 72.8 Lymphocytes % 13.0 D Monocytes % 9.7 Eosinophils % 3.9 Basophils % 0.6 Nucleated RBC % 0 PT with INR 13.10 H INR 1.11 H PTT (Actin FS) 28.7 Sodium 131 L Potassium 4.3 Chloride 98 Carbon Dioxide 21 Anion Gap 11 BUN 20 H Creatinine 1.2 Creat Clearance w eGFR 44.16 Random Glucose 376 H* Lactic Acid Calcium 7.8 L Total Bilirubin 0.3 AST 71 H ALT 128 H Alkaline Phosphatase 255 H Total Protein 5.9 L Albumin 1.7 L 07/21/18 20:10 WBC RBC Hgb Hct MCV MCH MCHC RDW Plt Count MPV Absolute Neuts (auto) Neutrophils % Lymphocytes % Monocytes % Eosinophils % Basophils % Nucleated RBC % PT with INR INR PTT (Actin FS) Sodium Potassium Chloride Carbon Dioxide Anion Gap BUN Creatinine Creat Clearance w eGFR Random Glucose Lactic Acid 2.5 H* Calcium Total Bilirubin AST ALT Alkaline Phosphatase Total Protein Albumin ASSESSMENT/PLAN: 73 yo female with PMH of HTN, HLD, IDDM, recent DVT on Eliquis, presented from [facility] for abnormal labs and worsening sacral and heel ulcers Sepsis -Tachycardic, fever 102 -likely secondary to infection of sacral or heel ulcers -UA pending -Vanc/Zosyn -ID consulted -For OR was planned as outpatient, Vascular surgery consulted -Xray Right heel ordered -MRI negative last month for osteo IDDM -Glucose 376 in ED -no anion gap -Sliding scale -BGMs Q4 -Repeat BMP stat Recent DVT -Hold Eliquis for OR on -Pt has received for about 3 months as per daughter DVT Prophylaxis -Lovenox 60 mg SQ once in AM then hold for OR FEN -Fluids: LR @ 100 cc/hr -Electrolytes: No electrolyte abnormalities, BMP in AM -Nutrition: Diabetic Na controlled Disposition Med/Surg Visit type - Emergency Visit Emergency Visit: Yes ED Registration Date: 07/21/18 Care time: The patient presented to the Emergency Department on the above date and was hospitalized for further evaluation of their emergent condition. - New Patient This patient is new to me today: Yes Date on this admission: 07/22/18 - Critical Care Critical Care patient: No
[2018-07-22] MEDS ORDERED: LORazepam 0.5 MG TABLET PO PRN (01:03)
[2018-07-22] MEDS ORDERED: LACTATED RINGERS SOLUTION 1,000 ML/1,000 ML INFUS.BAG IV SCH (01:15)
[2018-07-22] MEDS ORDERED: INSULIN SLIDING SCALE (NOVOLOG) 1 VIAL SQ SCH ×2 (02:00→07:00)
[2018-07-22 05:48] LABS: BASO % 0.7 % (0-2.0); EOS % 4.2 % (0-4.5); HEMATOCRIT 23.8 % (32.4-45.2); HEMOGLOBIN 7.6 GM/dL (10.7-15.3); LYMPH % 16.6 % (8-40); MCH 27.9 pg (25.7-33.7); MCHC 31.9 g/dl (32.0-36.0); MEAN CELL VOLUME 87.5 fl (80-96); MEAN PLT VOLUME 7.8 fl (7.5-11.1); MONO % 9.5 % (3.8-10.2); PLATELET COUNT 537 K/MM3 (134-434); RBC 2.72 M/mm3 (3.60-5.2); RDW 17.6 % (11.6-15.6); WHITE BLOOD COUNT 9.3 K/mm3 (4.0-10.0)
[2018-07-22] MEDS ORDERED: INSULIN (LEVEMIR) 100 UNITS/ML UNITS SQ SCH (07:00)
[2018-07-22 08:36] LABS: ALBUMIN 1.5 g/dl (3.4-5.0); ALK PHOS 200 U/L (45-117); ANION GAP 9 MMOL/L (8-16); BILIRUBIN,TOTAL 0.3 mg/dL (0.2-1); BLOOD UREA NITROGEN 17 mg/dL (7-18); CALCIUM 7.9 mg/dL (8.5-10.1); CHLORIDE 106 mmol/L (98-107); CO2 23 mmol/L (21-32); CREATININE 1.1 mg/dL (0.55-1.3); GLUCOSE,RANDOM 176 mg/dL (74-106); LIPASE 137 U/L (73-393); PHOSPHOROUS 4.5 mg/dL (2.5-4.9); POTASSIUM 4.2 mmol/L (3.5-5.1); SGOT/AST 50 U/L (15-37); SGPT/ALT 107 U/L (13-61); SODIUM 137 mmol/L (136-145); TOT PROT 5.2 g/dl (6.4-8.2)
--- NOTE | 2018-07-22 09:15 | PN ---
Physical Exam: SUBJECTIVE: Patient seen and examined at bedside. No overnight events. No new complaints. Denies CP,RUIZ,SOB, abdominal pain, nausea or vomiting. OBJECTIVE: Vital Signs Period Temp Pulse Resp BP Sys/Uribe Pulse Ox Last 24 Hr 102.3 F 133 20 120/90 96 GENERAL: Awake and alert HEAD: NCAT EYES: Pupils reactive to light, left pupil more dilated than right, no scleral icterus EARS, NOSE, THROAT: oropharynx clear without exudates. Moist mucous membranes. NECK: supple without lymphadenopathy or JVD LUNGS: CTA b/l, no crackles or wheezes HEART: Tachycardic, regular rhythm, normal S1 and S2 without murmur ABDOMEN: Soft, nontender to palpation, normoactive bowel sounds : Tejeda in place draining straw colored urine EXTREMITIES: 1+ pulses, wounds: right ankle 1cm X 1cm, right post foot 1 cm X 1cm, right heel 10cm X 8cm, left post foot 1cm X 1cm, left heel 8cm X 7cm, minimal purulent foul smelling drainage NEUROLOGICAL: Cranial nerves II-XII grossly intact. minimal speech, says she does not speak well but can appropriately answer questioning with short responses PSYCHIATRIC: Cooperative. Good eye contact. Appropriate mood and affect. SKIN: Sacral ulcer 14cm X 8cm X 3cm Laboratory Results - last 24 hr 07/21/18 07/21/18 07/21/18 20:10 20:10 20:10 WBC 10.0 RBC 3.00 L Hgb 9.1 L Hct 26.3 L MCV 87.4 MCH 30.3 D MCHC 34.6 RDW 17.6 H Plt Count 595 H MPV 8.2 Absolute Neuts (auto) 7.3 Neutrophils % 72.8 Lymphocytes % 13.0 D Monocytes % 9.7 Eosinophils % 3.9 Basophils % 0.6 Nucleated RBC % 0 PT with INR 13.10 H INR 1.11 H PTT (Actin FS) 28.7 Sodium 131 L Potassium 4.3 Chloride 98 Carbon Dioxide 21 Anion Gap 11 BUN 20 H Creatinine 1.2 Creat Clearance w eGFR 44.16 Random Glucose 376 H* Lactic Acid Calcium 7.8 L Phosphorus Magnesium Total Bilirubin 0.3 AST 71 H ALT 128 H Alkaline Phosphatase 255 H Total Protein 5.9 L Albumin 1.7 L Lipase Blood Type Antibody Screen 11/07/22/18 07/22/18 20:10 05:10 05:10 WBC RBC Hgb Hct MCV MCH MCHC RDW Plt Count MPV Absolute Neuts (auto) Neutrophils % Lymphocytes % Monocytes % Eosinophils % Basophils % Nucleated RBC % PT with INR INR PTT (Actin FS) Sodium 137 Potassium 4.2 Chloride 106 Carbon Dioxide 23 Anion Gap 9 BUN 17 Creatinine 1.1 Creat Clearance w eGFR 48.82 Random Glucose 176 H Lactic Acid 2.5 H* Calcium 7.9 L Phosphorus 4.5 Magnesium 2.0 Total Bilirubin 0.3 AST 50 H ALT 107 H Alkaline Phosphatase 200 H Total Protein 5.2 L Albumin 1.5 L Lipase 137 Blood Type O POSITIVE Antibody Screen Positive H 07/22/18 05:55 WBC 9.3 RBC 2.72 L Hgb 7.6 L Hct 23.8 L MCV 87.5 MCH 27.9 MCHC 31.9 L RDW 17.6 H Plt Count 537 H MPV 7.8 Absolute Neuts (auto) 6.4 Neutrophils % 69.0 Lymphocytes % 16.6 D Monocytes % 9.5 Eosinophils % 4.2 Basophils % 0.7 Nucleated RBC % 0 PT with INR INR PTT (Actin FS) Sodium Potassium Chloride Carbon Dioxide Anion Gap BUN Creatinine Creat Clearance w eGFR Random Glucose Lactic Acid Calcium Phosphorus Magnesium Total Bilirubin AST ALT Alkaline Phosphatase Total Protein Albumin Lipase Blood Type Antibody Screen Active Medications Generic Name Dose Route Start Last Admin Trade Name Freq PRN Reason Stop Dose Admin Collagenase 1 applic 07/22/18 10:00 Santyl - TP BID [facility] Protocol Docusate Sodium 200 mg 07/22/18 10:00 Colace - PO DAILY YOAV Lactated Ringer's 1,000 ml in 1,000 mls @ 100 mls/hr 07/22/18 01:15 Lactated Ringers Solution IV ASDIR YOAV Insulin Aspart 1 vial 07/22/18 02:00 Novolog Vial Sliding Scale - SQ Q4HPO [facility] Protocol Insulin Detemir 14 units 07/22/18 07:00 Levemir Vial SQ AM YOAV Lorazepam 0.5 mg 07/22/18 01:03 Ativan - PO BID PRN ANXIETY Risperidone 0.25 mg 07/22/18 01:15 Risperdal - PO BID [facility] ASSESSMENT/PLAN: 73 yo female with PMH of HTN, HLD, IDDM, recent DVT on Eliquis, presented from [facility] for abnormal labs and worsening sacral and heel ulcers Problem List - Problems (1) Sepsis Assessment/Plan: most likely 2/2 wound infection * IVF with LR @ 100ml/hr * repeat lactic acid 1.1 * ID on board-started Zosyn; MRSA from wound prior admission * She is going for debridement in AM * NPO after midnight. * AC with elquis held for procedure. (2) Diabetes Assessment/Plan: * ADA diet. * BGM ACHS * ISS ACHS * Levamir 14 units in AM (3) Recurrent deep vein thrombosis (DVT) Assessment/Plan: on eliquis * held for procedure (4) Transaminitis Assessment/Plan: present on last admission * Abdominal US shows chololithiasis with midly dialated CBD, and mild hepatomegally * refuses CCY * will trend. Visit type - Emergency Visit Emergency Visit: Yes ED Registration Date: 07/21/18 Care time: The patient presented to the Emergency Department on the above date and was hospitalized for further evaluation of their emergent condition. - New Patient This patient is new to me today: Yes Date on this admission: 07/22/18 - Critical Care Critical Care patient: No
[2018-07-22] MEDS ORDERED: DOCUSATE SODIUM 100 MG CAPSULE (FP) PO SCH (10:00)
[2018-07-22] MEDS ORDERED: COLLAGENASE CLOSTRIDIUM HIST. 30 GRAMS TUBE TP SCH ×2 (10:00→13:18)
[2018-07-22 10:15] LABS: OSMOLALITY,SERUM 286 mosm/kg (278-305)
[2018-07-22] MEDS: risperiDONE 0.25 MG TABLET (FP) PO SCH ×2 (11:23→23:32)
--- NOTE | 2018-07-22 11:45 | EKG ---
Test Reason : Blood Pressure : / mmHG Vent. Rate : 122 BPM Atrial Rate : 122 BPM P-R Int : 152 ms QRS Dur : 074 ms QT Int : 308 ms P-R-T Axes : 076 025 069 degrees QTc Int : 438 ms POOR DATA QUALITY, INTERPRETATION MAY BE ADVERSELY AFFECTED SINUS TACHYCARDIA OTHERWISE NORMAL ECG WHEN COMPARED WITH ECG OF 11-JUN-2018 17:26, VENT. RATE HAS INCREASED BY 51 BPM Confirmed by EDENILSON MALIK, BEAU ([id number]) on 07/22/2018 11:45:18 AM Referred By: Confirmed By:BEAU PYLE MD
[2018-07-22] MEDS ORDERED: INSULIN (NOVOLOG) ASPART 100 UNITS/ML 10ML VIAL ONE (12:29)
--- NOTE | 2018-07-22 12:38 | SPA.PREOP ---
- PRE-OP NOTE Dx: multiple decubitus ulcers Planned Procedure: Right hip debridement Surgeon: Dr. Solis Last Vital Signs Temp Pulse Resp BP Pulse Ox 98.0 F 105 H 18 114/55 L 96 07/22/18 11:00 07/22/18 11:00 07/22/18 11:00 07/22/18 11:00 07/21/18 18:40 Lab Results WBC 9.3 K/mm3 (4.0-10.0) 07/22/18 05:55 RBC 2.72 M/mm3 (3.60-5.2) L 07/22/18 05:55 Hgb 7.6 GM/dL (10.7-15.3) L 07/22/18 05:55 Hct 23.8 % (32.4-45.2) L 07/22/18 05:55 MCV 87.5 fl (80-96) 07/22/18 05:55 MCHC 31.9 g/dl (32.0-36.0) L 07/22/18 05:55 RDW 17.6 % (11.6-15.6) H 07/22/18 05:55 Plt Count 537 K/MM3 (134-434) H 07/22/18 05:55 Sodium 137 mmol/L (136-145) 07/22/18 05:10 Potassium 4.2 mmol/L (3.5-5.1) 07/22/18 05:10 Chloride 106 mmol/L (98-107) 07/22/18 05:10 Carbon Dioxide 23 mmol/L (21-32) 07/22/18 05:10 Anion Gap 9 MMOL/L (8-16) 07/22/18 05:10 BUN 17 mg/dL (7-18) 07/22/18 05:10 Creatinine 1.1 mg/dL (0.55-1.3) 07/22/18 05:10 Random Glucose 176 mg/dL (74-106) H 07/22/18 05:10 Calcium 7.9 mg/dL (8.5-10.1) L 07/22/18 05:10 Blood Type O POSITIVE 07/22/18 05:10 Antibody Screen Positive H 07/22/18 05:10 INR 1.11 (0.83-1.09) H 07/21/18 20:10 PE: Alert and follows commands Sacrum: sacral bone exposure with minimal necrotic tissue at the base. Large defect 10x10 cm. Right hip: with undermining 1cm medially with an open of 3x3 and fibrinous/ necrotic tissue at the base. Left Hip: with superficial abrasion. Heels: bilateral eschars to heel with foul clear drainage on dressings. No erythema to the skin or bogginess. +2 DP/PT pulses bilaterally. Eschars are hard to plapation. Size approx 6x3cm to heel covering the plantar surface. Left lateral leg with superficial abrasion 1x1cm. - ASSESSMENT/PLAN 1. Make NPO after midnight except po meds 2. Medical optimization / clearance 3. Wound care orders regarding other wounds/plan for debridement of right hip only on 07/[address] Solis 5. T&S ordered, consider PRBC transfusion as per the medical team 6. Iv abx as per the medical team
--- NOTE | 2018-07-22 14:19 | CON.ID ---
Consult Consult Specialty:: infectious diseases Reason for Consultation:: multiple ulcer infected,sepsis - History of Present Illness Chief Complaint: multiple non healing ulcers History of Present Illness: 73 yo female with PMH of HTN, HLD, IDDM, recent DVT on Eliquis, presented from [facility] for abnormal labs and worsening sacral and heel ulcers. As per the daughter, the hemoglobin was noted to be low and they wanted to send her to the hospital for optimization for a scheduled wound debridement in the OR with Dr. Solis on . She has had these wounds for 2-3 months according to the daughter as well, though this is the worst they have all been. She currently complains of pain in both of the heel ulcers which she states she usually does not have. She endorses feeling more "shaky" than normal, though she denies any recent fevers, chills, SOB, cough, chest pain, n/v/d. patient was in the hospital before and was treated for the wounds currently she has no complaints - History Source History Provided By: Patient, Medical Record Limitations to Obtaining History: Poor Historian - Past Medical History Cardio/Vascular: Yes: HTN, Hyperlipdemia Hepatobiliary: Yes: Cholelithiasis, Other (chronically dilated CBD) Psych: Yes: Bipolar Endocrine: Yes: Diabetes Mellitus - Alcohol/Substance Use Hx Alcohol Use: No History of Substance Use: reports: None - Smoking History Smoking history: Never smoked Have you smoked in the past 12 months: Yes If you are a former smoker, when did you quit?: when entered half-way - Social History Usual Living Arrangement: Halfway ADL: Support Services Occupation: retired History of Recent Travel: No Home Medications - Allergies Allergies/Adverse Reactions: Allergies Allergy/AdvReac Type Severity Reaction Status Date / Time No Known Allergies Allergy Verified 05/19/18 18:55 - Home Medications Home Medications: Ambulatory Orders Aa/Hydrolyzed Collagen, Whey [Lps 15-30 Liquid] 30 ml PO BID 05/19/18 Acetaminophen [Tylenol] 650 mg PO QID PRN 05/19/18 Apixaban [Eliquis -] 2.5 mg PO BID 05/19/18 Ascorbic Acid [Vitamin C -] 500 mg PO DAILY 05/19/18 Bacitracin - [Bacitracin Topical Ointment -] 1 applic TP BID 05/19/18 Bisacodyl [Bisacodyl -] 5 mg PO DAILY 05/19/18 Collagenase Clostridium Hist. [Santyl -] 1 applic TP BID 05/19/18 Ferrous Sulfate [Feosol] 1 tab PO DAILY 05/19/18 LORazepam [Ativan] 0.5 mg PO BID 05/19/18 Mvit,Calcium,Iron,Mins/A.acids [[place] Double Strength Capsule] 1 each PO DAILY 05/19/18 Polyethylene Glycol 3350 [Miralax 119 gm Btl -] 17 gm PO DAILY 05/19/18 Propranolol HCl 40 mg PO BID 05/19/18 Risperidone [Risperdal -] 0.25 mg PO BID 05/19/18 Senna [place] Extract [Senna] 7.5 ml PO HS 05/19/18 Ceftriaxone [Rocephin -] 1 gm IVPB DAILY 3 Days vial 06/26/18 Clindamycin [Cleocin -] 300 mg PO Q6HPO 3 Days capsule 06/26/18 Insulin (Levemir) [Levemir Vial] 6 units SQ BID@0700,2200 units 06/26/18 Insulin Sliding Scale [Novolog Vial Sliding Scale -] 1 vial SQ ACHS units 06/26 Ammonium Lactate Lotion [Lac-Hydrin 12] 1 applic TP TID PRN 07/22/18 Docusate Sodium [Colace] 2 cap PO DAILY 07/22/18 Enoxaparin Sodium [Lovenox] 80 mg SQ DAILY 07/22/18 Insulin Glargine,Hum.rec.anlog [Lantus Solostar PEN -] 14 units SQ AM 07/22/18 Insulin Lispro [Humalog Kwikpen U-100] See Protocol SQ TID 07/22/18 Sennosides [Senna] 2 tab PO DAILY 07/22/18 Family Disease History - Family Disease History Family Disease History: Heart Disease: Father (had RI), Brother ( 63 stomach cancer), CA: Sister (breast cancer) Review of Systems - Review of Systems Constitutional: reports: No Symptoms Eyes: reports: No Symptoms HENT: reports: No Symptoms Neck: reports: No Symptoms Cardiovascular: reports: No Symptoms Respiratory: reports: No Symptoms Gastrointestinal: reports: No Symptoms Genitourinary: reports: No Symptoms Musculoskeletal: reports: No Symptoms Integumentary: reports: Wound (multiple sites including sacrum and the heel) Neurological: reports: No Symptoms Endocrine: reports: No Symptoms Hematology/Lymphatic: reports: No Symptoms Psychiatric: reports: No Symptoms Physical Exam Vital Signs: Vital Signs Temperature 98.0 F 07/22/18 11:00 Pulse Rate 105 H 07/22/18 11:00 Respiratory Rate 18 07/22/18 11:00 Blood Pressure 114/55 L 07/22/18 11:00 O2 Sat by Pulse Oximetry (%) 96 07/21/18 18:40 Constitutional: Yes: No Distress, Calm Eyes: Yes: Conjunctiva Clear Cardiovascular: Yes: Regular Rate and Rhythm. No: Murmur Respiratory: Yes: Regular, CTA Bilaterally Gastrointestinal: Yes: Normal Bowel Sounds, Soft Musculoskeletal: Yes: Other Extremities: Yes: Other (ulcers on the heel) Wound/Incision: Yes: Other (right ankle 1cm X 1cm, right post foot 1 cm X 1cm, right heel 10cm X 8cm, left post foot 1cm X 1cm, left heel 8cm X 7cm, minimal purulent foul smelling drainage sacral ulcer) Neurological: Yes: Alert Psychiatric: Yes: Alert Labs: CBC, BMP 07/22/18 05:55 07/22/18 05:10 Imaging - Results Chest X-ray: Report Reviewed, Image Reviewed X-ray: Report Reviewed, Image Reviewed Assessment/Plan ASSESSMENT/PLAN: 73 yo female with PMH of HTN, HLD, IDDM, recent DVT on Eliquis, presented from [facility] for abnormal labs and worsening sacral and heel ulcers Sepsis IDDM DVT infected wound sacral decubitus patient has already received vanco and zosyn plan will continue zosyn for now await for debridement re cx rest as per the team
--- NOTE | 2018-07-22 17:25 | PN ---
Teaching Attending Note Name of Resident: Adarsh Torre ATTENDING PHYSICIAN STATEMENT I saw and evaluated the patient. I reviewed the resident's note and discussed the case with the resident. I agree with the resident's findings and plan as documented. SUBJECTIVE: Patient complains of being thirsty OBJECTIVE: Gen: nad CV: rrr w/o m/r/g Pulm: ctab w/o w/r/r Abd: +bs, s/nt/nd Ext: decubitus ulceration ASSESSMENT AND PLAN: 1. Sepsis secondary to decubiti 2. Multiple decubitus ulceration 3. acute on chronic anemia 4. DM -appreciate ID and vascular surgery assistance -received vancomycin and zosyn in the ED -ID continued zosyn -monitor H/H for possible transfusion -diabetic diet and insulin -npo for debridement tomorrow
[2018-07-22] MEDS: INSULIN SLIDING SCALE (NOVOLOG) 1 VIAL SQ SCH ×2 (18:30→23:33)
[2018-07-22] MEDS: PIPERACILLIN/TAZOB 3.375 GM 3.375 GM in DEXTROSE 5%-WATER - 50 ML IVPB SCH (18:31)
[2018-07-22] MEDS ORDERED: risperiDONE 0.5 MG TABLET (FP) ONE (22:35)
[2018-07-23 02:11] LABS: URINE APPEARANCE CLEAR; URINE BILIRUBIN NEGATIVE (<2.0 mg/dL); URINE COLOR COLORLESS; URINE GLUCOSE (UA) NEGATIVE (NEGATIVE); URINE KETONE NEGATIVE (NEGATIVE); URINE LEUK ESTERASE 2+ (NEGATIVE); URINE NITRITE POSITIVE (NEGATIVE); URINE PROTEIN NEGATIVE (NEGATIVE); URINE UROBILINOGEN NEGATIVE mg/dL (0.2-1.0)
[2018-07-23 02:13] LABS: LIPASE 134 U/L (73-393)
[2018-07-23 02:14] LABS: URINE BACTERIA RARE /hpf (NONE SEEN); URINE MUCUS RARE
[2018-07-23] MEDS: PIPERACILLIN/TAZOB 3.375 GM 3.375 GM in DEXTROSE 5%-WATER - 50 ML IVPB SCH ×3 (02:47→17:41)
[2018-07-23] MEDS ORDERED: DEXTROSE 5%-WATER - 50 ML IVPB ONE ×4 (05:24→21:42)
[2018-07-23] MEDS ORDERED: PIPERACILLIN/TAZOBACTAM 3.375 GM VIAL IVPB ONE ×4 (05:24→21:42)
[2018-07-23] MEDS ORDERED: INSULIN (LEVEMIR) 100 UNITS/ML UNITS SQ SCH (07:00)
[2018-07-23 07:13] LABS: BASO % 0.6 % (0-2.0); EOS % 6.8 % (0-4.5); HEMATOCRIT 25.1 % (32.4-45.2); HEMOGLOBIN 7.8 GM/dL (10.7-15.3); LYMPH % 20.4 % (8-40); MCH 27.5 pg (25.7-33.7); MCHC 31.1 g/dl (32.0-36.0); MEAN CELL VOLUME 88.5 fl (80-96); MONO % 9.3 % (3.8-10.2); NEUT % 62.9 % (42.8-82.8); PLATELET COUNT 579 K/MM3 (134-434); RBC 2.84 M/mm3 (3.60-5.2); RDW 17.6 % (11.6-15.6); WHITE BLOOD COUNT 8.2 K/mm3 (4.0-10.0)
[2018-07-23 07:47] LABS: ALBUMIN 1.5 g/dl (3.4-5.0); ALK PHOS 180 U/L (45-117); ANION GAP 7 MMOL/L (8-16); BILIRUBIN,TOTAL 0.3 mg/dL (0.2-1); BLOOD UREA NITROGEN 13 mg/dL (7-18); CALCIUM 8.5 mg/dL (8.5-10.1); CHLORIDE 111 mmol/L (98-107); CO2 23 mmol/L (21-32); CREATININE 0.8 mg/dL (0.55-1.3); GLUCOSE,RANDOM 96 mg/dL (74-106); POTASSIUM 4.3 mmol/L (3.5-5.1); SGOT/AST 43 U/L (15-37); SGPT/ALT 95 U/L (13-61); SODIUM 141 mmol/L (136-145); TOT PROT 5.3 g/dl (6.4-8.2)
[2018-07-23] MEDS: risperiDONE 0.25 MG TABLET (FP) PO SCH ×2 (09:23→23:23)
[2018-07-23 10:30] LABS: OSMOLALITY,SERUM 289 mosm/kg (278-305)
[2018-07-23] MEDS ORDERED: LIDOCAINE HCL 1%, 10 MG/ML (20ML VIAL) ONE ×2 (10:56→12:45)
[2018-07-23] MEDS ORDERED: BUPIVACAINE HCL/PF 0.5% (5MG/ML) 10 ML VIAL ONE (10:56)
[2018-07-23] MEDS: INSULIN SLIDING SCALE (NOVOLOG) 1 VIAL SQ SCH ×3 (11:18→23:22)
--- NOTE | 2018-07-23 11:18 | PN ---
Physical Exam: SUBJECTIVE: Patient seen and examined at bedside. No overnight events. No new complaints. Asking for something to drink. Denies CP,RUIZ, SOB,abdominal pain, nausea or vomiting. S/P wound debridement today. tolerated procedure well. OBJECTIVE: Vital Signs Period Temp Pulse Resp BP Sys/Uribe Pulse Ox Last 24 Hr 98 F-99.4 F 84-112 16-18 113-150/62-90 96-99 GENERAL: Awake and alert HEAD: NCAT EYES: Pupils reactive to light, left pupil more dilated than right, no scleral icterus EARS, NOSE, THROAT: oropharynx clear without exudates. Moist mucous membranes. NECK: supple without lymphadenopathy or JVD LUNGS: CTA b/l, no crackles or wheezes HEART: Tachycardic, regular rhythm, normal S1 and S2 without murmur ABDOMEN: Soft, nontender to palpation, normoactive bowel sounds : Tejeda in place draining straw colored urine EXTREMITIES: 1+ pulses, wounds: right ankle 1cm X 1cm, right post foot 1 cm X 1cm, right heel 10cm X 8cm, left post foot 1cm X 1cm, left heel 8cm X 7cm, minimal purulent foul smelling drainage NEUROLOGICAL: Cranial nerves II-XII grossly intact. minimal speech, says she does not speak well but can appropriately answer questioning with short responses PSYCHIATRIC: Cooperative. Good eye contact. Appropriate mood and affect. SKIN: Sacral ulcer bandaged C/D/I Laboratory Results - last 24 hr 07/22/18 07/22/18 07/22/18 05:10 11:40 12:53 WBC RBC Hgb Hct MCV MCH MCHC RDW Plt Count MPV Absolute Neuts (auto) Neutrophils % Lymphocytes % Monocytes % Eosinophils % Basophils % Nucleated RBC % Sodium Potassium Chloride Carbon Dioxide Anion Gap BUN Creatinine Creat Clearance w eGFR POC Glucometer [phone] Random Glucose Serum Osmolality Lactic Acid 1.1 Calcium Total Bilirubin AST ALT Alkaline Phosphatase Total Protein Albumin Lipase Urine Color Urine Appearance Urine pH Ur Specific [place] Urine Protein Urine Glucose (UA) Urine Ketones Urine Blood Urine Nitrite Urine Bilirubin Urine Urobilinogen Ur Leukocyte Esterase Urine WBC (Auto) Urine RBC (Auto) Urine Bacteria Urine Mucus Antibody Identification Anti-e Antigen Identification No Result Required. 07/22/18 07/22/18 07/23/18 17:44 23:24 00:00 WBC RBC Hgb Hct MCV MCH MCHC RDW Plt Count MPV Absolute Neuts (auto) Neutrophils % Lymphocytes % Monocytes % Eosinophils % Basophils % Nucleated RBC % Sodium Potassium Chloride Carbon Dioxide Anion Gap BUN Creatinine Creat Clearance w eGFR POC Glucometer [phone] Random Glucose Serum Osmolality Lactic Acid Calcium Total Bilirubin AST ALT Alkaline Phosphatase Total Protein Albumin Lipase Urine Color Colorless Urine Appearance Clear Urine pH 7.0 Ur Specific [place] 1.003 L Urine Protein Negative Urine Glucose (UA) Negative Urine Ketones Negative Urine Blood Negative Urine Nitrite Positive Urine Bilirubin Negative Urine Urobilinogen Negative Ur Leukocyte Esterase 2+ H Urine WBC (Auto) 7 Urine RBC (Auto) <1 Urine Bacteria Rare Urine Mucus Rare Antibody Identification Antigen Identification 07/23/18 07/23/18 07/23/18 00:10 06:15 06:15 WBC 8.2 RBC 2.84 L Hgb 7.8 L Hct 25.1 L MCV 88.5 MCH 27.5 MCHC 31.1 L RDW 17.6 H Plt Count 579 H MPV 8.0 Absolute Neuts (auto) 5.2 Neutrophils % 62.9 Lymphocytes % 20.4 D Monocytes % 9.3 Eosinophils % 6.8 H Basophils % 0.6 Nucleated RBC % 0 Sodium 141 Potassium 4.3 Chloride 111 H Carbon Dioxide 23 Anion Gap 7 L BUN 13 Creatinine 0.8 Creat Clearance w eGFR > 60 POC Glucometer Random Glucose 96 Serum Osmolality 289 Lactic Acid Calcium 8.5 Total Bilirubin 0.3 AST 43 H ALT 95 H Alkaline Phosphatase 180 H Total Protein 5.3 L Albumin 1.5 L Lipase 134 Urine Color Urine Appearance Urine pH Ur Specific [place] Urine Protein Urine Glucose (UA) Urine Ketones Urine Blood Urine Nitrite Urine Bilirubin Urine Urobilinogen Ur Leukocyte Esterase Urine WBC (Auto) Urine RBC (Auto) Urine Bacteria Urine Mucus Antibody Identification Antigen Identification 07/23/18 06:43 WBC RBC Hgb Hct MCV MCH MCHC RDW Plt Count MPV Absolute Neuts (auto) Neutrophils % Lymphocytes % Monocytes % Eosinophils % Basophils % Nucleated RBC % Sodium Potassium Chloride Carbon Dioxide Anion Gap BUN Creatinine Creat Clearance w eGFR POC Glucometer 109 Random Glucose Serum Osmolality Lactic Acid Calcium Total Bilirubin AST ALT Alkaline Phosphatase Total Protein Albumin Lipase Urine Color Urine Appearance Urine pH Ur Specific [place] Urine Protein Urine Glucose (UA) Urine Ketones Urine Blood Urine Nitrite Urine Bilirubin Urine Urobilinogen Ur Leukocyte Esterase Urine WBC (Auto) Urine RBC (Auto) Urine Bacteria Urine Mucus Antibody Identification Antigen Identification Active Medications Generic Name Dose Route Start Last Admin Trade Name Ariel PRN Reason Stop Dose Admin Collagenase 1 applic 07/22/18 13:18 Santyl - TP BID YOAV Protocol Docusate Sodium 200 mg 07/22/18 10:00 07/22/18 11:24 Colace - PO 200 mg DAILY YOAV Administration Lactated Ringer's 1,000 ml in 1,000 mls @ 100 mls/hr 07/22/18 01:15 07/22/18 11:23 Lactated Ringers Solution IV 100 mls/hr ASDIR YOAV Administration Piperacillin Sod/Tazobactam 50 mls @ 100 mls/hr 07/22/18 14:30 07/23/18 09:24 Sod 3.375 gm/ Dextrose IVPB 100 mls/hr Q8H-IV YOAV Administration Protocol Insulin Aspart 1 vial 07/22/18 18:00 07/22/18 23:33 Novolog Vial Sliding Scale - SQ Not Given ACHS YOAV Protocol Insulin Detemir 6 units 07/23/18 07:00 07/23/18 06:49 Levemir Vial SQ 6 units AM YOAV Administration Lorazepam 0.5 mg 07/22/18 01:03 Ativan - PO BID PRN ANXIETY Risperidone 0.25 mg 07/22/18 01:15 07/23/18 09:23 Risperdal - PO 0.25 mg BID YOAV Administration ASSESSMENT/PLAN: 73 yo female with PMH of HTN, HLD, IDDM, recent DVT on Eliquis, presented from [facility] for abnormal labs and worsening sacral and heel ulcers Problem List - Problems (1) Sepsis Assessment/Plan: most likely 2/2 wound infection * S/P debridement this morning * IVF with LR @ 100ml/hr * repeat lactic acid 1.1 * ID on board-started Zosyn; MRSA from wound prior admission * AC with eledgar held for procedure, will discuss with vascular when to restart. (2) Diabetes Assessment/Plan: * ADA diet. 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 Visit type - Emergency Visit Emergency Visit: Yes ED Registration Date: 07/21/18 Care time: The patient presented to the Emergency Department on the above date and was hospitalized for further evaluation of their emergent condition. - New Patient This patient is new to me today: No - Critical Care Critical Care patient: No
[2018-07-23] MEDS ORDERED: ONDANSETRON 4 MG/2 ML VIAL IVPUSH PRN ×2 (11:38→13:36)
[2018-07-23] MEDS ORDERED: PROPOFOL 20 ML ONE (12:19)
[2018-07-23] MEDS ORDERED: ceFAZolin SODIUM 1 GM VIAL IVPB ONE ×2 (12:25)
[2018-07-23] MEDS ORDERED: LIDOCAINE HCL 1%, 10 MG/ML (20ML VIAL) INF ONE (12:40)
--- NOTE | 2018-07-23 12:41 | PN ---
Progress Note, Physician History of Present Illness: patient post op from debridement - Current Medication List Current Medications: Active Medications Collagenase (Santyl -) 1 applic TP BID [facility]; Protocol Docusate Sodium (Colace -) 200 mg PO DAILY [facility] Last Admin: 07/22/18 11:24 Dose: 200 mg Fentanyl (Sublimaze Injection -) 25 mcg IVPUSH [id number] PRN PRN Reason: PAIN-PACU ORDER X 4 DOSES ONLY Lactated Ringer's (Lactated Ringers Solution) 1,000 ml in 1,000 mls @ 100 mls/ hr IV ASDIR [facility] Last Admin: 07/22/18 11:23 Dose: 100 mls/hr Piperacillin Sod/Tazobactam (Sod 3.375 gm/ Dextrose) 50 mls @ 100 mls/hr IVPB Q8H-IV [facility]; Protocol Last Admin: 07/23/18 09:24 Dose: 100 mls/hr Insulin Aspart (Novolog Vial Sliding Scale -) 1 vial SQ ACHS [facility]; Protocol Last Admin: 07/23/18 11:18 Dose: Not Given Insulin Detemir (Levemir Vial) 6 units SQ AM [facility] Last Admin: 07/23/18 06:49 Dose: 6 units Lorazepam (Ativan -) 0.5 mg PO BID PRN PRN Reason: ANXIETY Ondansetron HCl (Zofran Injection) 4 mg IVPUSH Q6H PRN PRN Reason: NAUSEA AND/OR VOMITING Stop: 07/24/18 11:37 Risperidone (Risperdal -) 0.25 mg PO BID [facility] Last Admin: 07/23/18 09:23 Dose: 0.25 mg - Objective Vital Signs: Vital Signs Temperature 98.1 F 07/23/18 09:28 Pulse Rate 112 H 07/23/18 09:28 Respiratory Rate 18 07/23/18 09:28 Blood Pressure 150/90 07/23/18 09:28 O2 Sat by Pulse Oximetry (%) 99 07/23/18 09:00 Constitutional: Yes: No Distress, Calm Cardiovascular: Yes: S1, S2 Respiratory: Yes: Regular, CTA Bilaterally Gastrointestinal: Yes: Normal Bowel Sounds, Soft Musculoskeletal: Yes: WNL Extremities: Yes: Other Wound/Incision: Yes: Dressing Dry and Intact, Other (sacral decubitus debridement) Neurological: Yes: Alert Labs: CBC, BMP 07/23/18 06:15 07/23/18 06:15 INR, PTT INR 1.11 (0.83-1.09) H 07/21/18 20:10 Assessment/Plan ASSESSMENT/PLAN: 73 yo female with PMH of HTN, HLD, IDDM, recent DVT on Eliquis, presented from [facility] for abnormal labs and worsening sacral and heel ulcers Sepsis IDDM DVT infected wound sacral decubitus patient has already received vanco and zosyn plan continue abx await for cx reports rest as per the team
[2018-07-23] MEDS ORDERED: PHENYLEPHRINE HCL 10 MG/1 ML SINGLE DOSE VIAL ONE (12:44)
[2018-07-23] MEDS ORDERED: VANCOMYCIN 1,250 MG in DEXTROSE 5%-WATER - 250 ML IVPB SCH ×2 (12:45→15:00)
--- NOTE | 2018-07-23 13:03 | OP ---
Operative Note - Note: Operative Date: 07/23/18 Pre-Operative Diagnosis: Right buttocks necrotic ulcer Operation: Excisional debridement right buttocks ulcer - skin, subcutaneous tissue, muscle. Findings: nectrotic tissue. Sent for culture and path Post-Operative Diagnosis: Same as Pre-op Surgeon: Romero Solis Anesthesia: Fractional Estimated Blood Loss (mls): 20 Operative Report Dictated: Yes
[2018-07-23] MEDS ORDERED: LORazepam 0.5 MG TABLET PO PRN (13:36)
[2018-07-23] MEDS: LACTATED RINGERS SOLUTION 1,000 ML/1,000 ML INFUS.BAG IV SCH (14:35)
[2018-07-23] MEDS ORDERED: PT OWN MED DRAWER 7, Y5N ONE (15:10)
--- NOTE | 2018-07-23 16:01 | PN ---
Teaching Attending Note Name of Resident: Adarsh Torre ATTENDING PHYSICIAN STATEMENT I saw and evaluated the patient. I reviewed the resident's note and discussed the case with the resident. I agree with the resident's findings and plan as documented. SUBJECTIVE: Patient complains of being thirsty, asking for something to drink. Denies cp, sob, n/v. OBJECTIVE: Gen: nad CV: rrr w/o m/r/g Pulm: ctab w/o w/r/r Abd: +bs, s/nt/nd Ext: bilateral heel ulceration ASSESSMENT AND PLAN: 1. Sepsis secondary to decubiti 2. Multiple decubitus ulceration 3. acute on chronic anemia 4. DM -appreciate ID and vascular surgery assistance -case d/w Dr Ohara -ID continued zosyn and started on vancomycin -follow up wound cultures -no need for transfusion -diabetic diet and insulin -surgical debridement of hip decubitus today
[2018-07-23] MEDS ORDERED: ACETAMINOPHEN 325 MG TABLET (FP) PO ONE (18:30)
[2018-07-23] MEDS ORDERED: COLLAGENASE CLOSTRIDIUM HIST. 30 GRAMS TUBE TP SCH (22:00)
[2018-07-24] MEDS: LACTATED RINGERS SOLUTION 1,000 ML/1,000 ML INFUS.BAG IV SCH ×2 (02:40→13:40)
[2018-07-24] MEDS: PIPERACILLIN/TAZOB 3.375 GM 3.375 GM in DEXTROSE 5%-WATER - 50 ML IVPB SCH ×3 (02:41→18:40)
[2018-07-24] MEDS ORDERED: PIPERACILLIN/TAZOBACTAM 3.375 GM VIAL IVPB ONE ×3 (05:26→18:34)
[2018-07-24] MEDS ORDERED: DEXTROSE 5%-WATER - 50 ML IVPB ONE ×3 (05:27→18:34)
[2018-07-24] MEDS: INSULIN (LEVEMIR) 100 UNITS/ML UNITS SQ SCH (06:03)
[2018-07-24] MEDS: INSULIN SLIDING SCALE (NOVOLOG) 1 VIAL SQ SCH ×5 (06:04→22:40)
[2018-07-24] MEDS ORDERED: INSULIN (NOVOLOG) ASPART 100 UNITS/ML 10ML VIAL ONE (06:32)
[2018-07-24] MEDS ORDERED: INSULIN (LEVEMIR) 100 UNITS/ML UNITS SQ SCH (07:00)
[2018-07-24 08:00] LABS: BASO % 0.8 % (0-2.0); EOS % 8.1 % (0-4.5); HEMATOCRIT 25.2 % (32.4-45.2); HEMOGLOBIN 8.5 GM/dL (10.7-15.3); LYMPH % 27.1 % (8-40); MCH 29.4 pg (25.7-33.7); MCHC 33.6 g/dl (32.0-36.0); MEAN CELL VOLUME 87.5 fl (80-96); MEAN PLT VOLUME 7.9 fl (7.5-11.1); MONO % 9.6 % (3.8-10.2); NEUT % 54.4 % (42.8-82.8); PLATELET COUNT 555 K/MM3 (134-434); RBC 2.88 M/mm3 (3.60-5.2); RDW 17.3 % (11.6-15.6); WHITE BLOOD COUNT 5.5 K/mm3 (4.0-10.0)
[2018-07-24 08:35] LABS: ALBUMIN 1.6 g/dl (3.4-5.0); ALK PHOS 148 U/L (45-117); ANION GAP 9 MMOL/L (8-16); BILIRUBIN,TOTAL 0.3 mg/dL (0.2-1); BLOOD UREA NITROGEN 13 mg/dL (7-18); CHLORIDE 107 mmol/L (98-107); CO2 22 mmol/L (21-32); CREATININE 0.9 mg/dL (0.55-1.3); GLUCOSE,RANDOM 116 mg/dL (74-106); POTASSIUM 4.3 mmol/L (3.5-5.1); SGOT/AST 18 U/L (15-37); SGPT/ALT 54 U/L (13-61); SODIUM 138 mmol/L (136-145); TOT PROT 5.2 g/dl (6.4-8.2)
[2018-07-24] MEDS: DOCUSATE SODIUM 100 MG CAPSULE (FP) PO SCH (11:14)
[2018-07-24] MEDS: risperiDONE 0.25 MG TABLET (FP) PO SCH ×2 (11:17→22:40)
--- NOTE | 2018-07-24 12:20 | PN ---
Progress Note, Physician History of Present Illness: stable no complaints - Current Medication List Current Medications: Active Medications Collagenase (Santyl -) 1 applic TP BID [facility]; Protocol Last Admin: 07/23/18 23:26 Dose: 1 applic Docusate Sodium (Colace -) 200 mg PO DAILY [facility] Last Admin: 07/24/18 11:14 Dose: 200 mg Lactated Ringer's (Lactated Ringers Solution) 1,000 ml in 1,000 mls @ 100 mls/ hr IV ASDIR [facility] Last Admin: 07/24/18 02:40 Dose: 100 mls/hr Vancomycin HCl 1,250 mg/ (Dextrose) 250 mls @ 166.667 mls/hr IVPB DAILY@1500 YOAV; Protocol Last Admin: 07/23/18 15:33 Dose: 166.667 mls/hr Piperacillin Sod/Tazobactam (Sod 3.375 gm/ Dextrose) 50 mls @ 100 mls/hr IVPB Q8H-IV YOAV; Protocol Last Admin: 07/24/18 11:13 Dose: 100 mls/hr Insulin Aspart (Novolog Vial Sliding Scale -) 1 vial SQ ACHS [facility]; Protocol Last Admin: 07/24/18 06:04 Dose: Not Given Insulin Detemir (Levemir Vial) 14 units SQ AM [facility] Last Admin: 07/24/18 06:03 Dose: 14 units Lorazepam (Ativan -) 0.5 mg PO BID PRN PRN Reason: ANXIETY Last Admin: 07/24/18 11:24 Dose: 0.5 mg Risperidone (Risperdal -) 0.25 mg PO BID [facility] Last Admin: 07/24/18 11:17 Dose: 0.25 mg - Objective Vital Signs: Vital Signs Temperature 97.6 F 07/24/18 06:00 Pulse Rate 90 07/24/18 06:00 Respiratory Rate 18 07/24/18 06:00 Blood Pressure 130/53 L 07/24/18 06:00 O2 Sat by Pulse Oximetry (%) 100 07/23/18 21:00 Constitutional: Yes: No Distress, Calm Cardiovascular: Yes: Regular Rate and Rhythm Respiratory: Yes: Regular, CTA Bilaterally Gastrointestinal: Yes: Normal Bowel Sounds, Soft Musculoskeletal: Yes: WNL Extremities: Yes: Other Wound/Incision: Yes: Dressing Dry and Intact Neurological: Yes: Alert, Oriented Labs: CBC, BMP 07/24/18 06:15 07/24/18 06:15 INR, PTT INR 1.11 (0.83-1.09) H 07/21/18 20:10 Assessment/Plan ASSESSMENT/PLAN: 73 yo female with PMH of HTN, HLD, IDDM, recent DVT on Eliquis, presented from [facility] for abnormal labs and worsening sacral and heel ulcers Sepsis IDDM DVT infected wound sacral decubitus uti patient has already received vanco and zosyn plan continue abx await for cx reports sensitivities rest as per the team will stop vanco
--- NOTE | 2018-07-24 14:31 | PN ---
Physical Exam: SUBJECTIVE: Patient seen and examined at bedside. No overnight events. No new complaints. POD#1 s/p debridement. Pain well controlled. Denies CP, RUIZ, SOB, abdominal pain, nausea and vomiting. OBJECTIVE: Vital Signs Period Temp Pulse Resp BP Sys/Uribe Pulse Ox Last 24 Hr 97.6 F-98.5 F 90-107 18-18 130-135/53-88 100-100 GENERAL: Awake and alert HEAD: NCAT EYES: Pupils reactive to light, left pupil more dilated than right, no scleral icterus EARS, NOSE, THROAT: oropharynx clear without exudates. Moist mucous membranes. NECK: supple without lymphadenopathy or JVD LUNGS: CTA b/l, no crackles or wheezes HEART: Tachycardic, regular rhythm, normal S1 and S2 without murmur ABDOMEN: Soft, nontender to palpation, normoactive bowel sounds : Tejeda in place draining straw colored urine EXTREMITIES: 1+ pulses, wounds: right ankle 1cm X 1cm, right post foot 1 cm X 1cm, right heel 10cm X 8cm, left post foot 1cm X 1cm, left heel 8cm X 7cm, minimal purulent foul smelling drainage NEUROLOGICAL: Cranial nerves II-XII grossly intact. minimal speech, says she does not speak well but can appropriately answer questioning with short responses PSYCHIATRIC: Cooperative. Good eye contact. Appropriate mood and affect. SKIN: Sacral ulcer bandaged C/D/I Laboratory Results - last 24 hr 07/23/18 07/23/18 07/23/18 14:45 14:45 16:12 WBC RBC Hgb Hct MCV MCH MCHC RDW Plt Count MPV Absolute Neuts (auto) Neutrophils % Lymphocytes % Monocytes % Eosinophils % Basophils % Nucleated RBC % Sodium Potassium Chloride Carbon Dioxide Anion Gap BUN Creatinine Creat Clearance w eGFR POC Glucometer 198 Random Glucose Calcium Total Bilirubin AST ALT Alkaline Phosphatase Total Protein Albumin Urine Osmolality 122 L Ur Random Sodium 34 L 07/23/18 07/24/18 07/24/18 23:20 06:02 06:15 WBC 5.5 RBC 2.88 L Hgb 8.5 L Hct 25.2 L MCV 87.5 MCH 29.4 MCHC 33.6 RDW 17.3 H Plt Count 555 H MPV 7.9 Absolute Neuts (auto) 3.0 Neutrophils % 54.4 Lymphocytes % 27.1 D Monocytes % 9.6 Eosinophils % 8.1 H Basophils % 0.8 Nucleated RBC % 0 Sodium Potassium Chloride Carbon Dioxide Anion Gap BUN Creatinine Creat Clearance w eGFR POC Glucometer 171 143 Random Glucose Calcium Total Bilirubin AST ALT Alkaline Phosphatase Total Protein Albumin Urine Osmolality Ur Random Sodium 07/24/18 07/24/18 06:15 11:29 WBC RBC Hgb Hct MCV MCH MCHC RDW Plt Count MPV Absolute Neuts (auto) Neutrophils % Lymphocytes % Monocytes % Eosinophils % Basophils % Nucleated RBC % Sodium 138 Potassium 4.3 Chloride 107 Carbon Dioxide 22 Anion Gap 9 BUN 13 Creatinine 0.9 Creat Clearance w eGFR > 60 POC Glucometer 208 Random Glucose 116 H Calcium 8.0 L Total Bilirubin 0.3 AST 18 ALT 54 Alkaline Phosphatase 148 H Total Protein 5.2 L Albumin 1.6 L Urine Osmolality Ur Random Sodium Active Medications Generic Name Dose Route Start Last Admin Trade Name Freq PRN Reason Stop Dose Admin Collagenase 1 applic 07/23/18 22:00 07/23/18 23:26 Santyl - TP 1 applic BID [facility]OAV Administration Protocol Docusate Sodium 200 mg 07/24/18 10:00 07/24/18 11:14 Colace - PO 200 mg DAILY [facility]OAV Administration Lactated Ringer's 1,000 ml in 1,000 mls @ 100 mls/hr 07/23/18 13:36 07/24/18 02:40 Lactated Ringers Solution IV 100 mls/hr ASDIR YOAV Administration Piperacillin Sod/Tazobactam 50 mls @ 100 mls/hr 07/23/18 18:00 07/24/18 11:13 Sod 3.375 gm/ Dextrose IVPB 100 mls/hr Q8H-IV [facility] Administration Protocol Insulin Aspart 1 vial 07/23/18 16:30 07/24/18 06:04 Novolog Vial Sliding Scale - SQ Not Given ACHS YOAV Protocol Insulin Detemir 14 units 07/24/18 07:00 07/24/18 06:03 Levemir Vial SQ 14 units AM [facility] Administration Lorazepam 0.5 mg 07/23/18 13:36 07/24/18 11:24 Ativan - PO 0.5 mg BID PRN Administration ANXIETY Risperidone 0.25 mg 07/23/18 22:00 07/24/18 11:17 Risperdal - PO 0.25 mg BID YOAV Administration ASSESSMENT/PLAN: 73 yo female with PMH of HTN, HLD, IDDM, recent DVT on Eliquis, presented from [facility] for abnormal labs and worsening sacral and heel ulcers. Problem List - Problems (1) Sepsis Assessment/Plan: most likely 2/2 wound infection * POD #1 s/p debridement. * wound culture shows presumptive Pseudomonas - On Vanco/Zosyn ; ID on board. * IVF with LR @ 100ml/hr * repeat lactic acid 1.1 * AC with elquis held for procedure, will discuss with vascular when to restart. (2) Diabetes Assessment/Plan: * ADA diet. * BGM ACHS * ISS ACHS * Levamir 14 units in AM (3) Recurrent deep vein thrombosis (DVT) Assessment/Plan: on eliquis * held for procedure (4) Transaminitis Assessment/Plan: present on last admission * Abdominal US shows chololithiasis with midly dialated CBD, and mild hepatomegally * refuses CCY * will trend. Visit type - Emergency Visit Emergency Visit: Yes ED Registration Date: 07/21/18 Care time: The patient presented to the Emergency Department on the above date and was hospitalized for further evaluation of their emergent condition. - New Patient This patient is new to me today: No - Critical Care Critical Care patient: No
--- NOTE | 2018-07-24 14:42 | PN ---
Progress Note (short form) - Note Progress Note: POD 1, s/p Excisional debridement right buttocks ulcer Pt seen and examined on AM rounds. States she is feeling "okay" after surgery. Endorses some pruritus over Right hip area. Tolerating PO. Has patterson in place. Denies cp/sob, n/v/d, calf pain/edema. Vital Signs Temp 97.6 F 07/24/18 06:00 Pulse 90 07/24/18 06:00 Resp 18 07/24/18 06:00 BP 130/53 L 07/24/18 06:00 Pulse Ox 100 07/23/18 21:00 Intake & Output 07/23/18 07/24/18 07/24/18 23:59 11:59 23:59 Intake Total 2300 240 Output Total 1570 2200 Balance 730 -1960 Weight 140 lb Intake: IV 1950 LACTATED RINGERS SOLUTION 1500 1,000 ml In 1,000 ml @ 100 mls/hr IV ASDIR YOAV Rx#:[id number] IVPB 350 Oral 240 Output: Urine 1550 2200 Patterson 1000 2200 Estimated Blood Loss 20 Other: Voiding Method Indwelling Catheter Indwelling Catheter Height 5 ft 2 in Body Mass Index (BMI) 25.6 CBC, BMP 07/24/18 06:15 07/24/18 06:15 Gen: awake, alert, nad sitting up in bed Resp: unlabored on RA Sacrum: approximately 13x7cm sacral ulcer, clean based with minimal fibrinous exudate. No erythema, moderate serous drainage, no foul odor. R buttock with 6x5cm ulcer, probes to bone, moderate fibrinous exudate, approximately 1.5cm of undermining circumferentially. No erythema. Moderate serous drainage. A/P: 73 y/o F w/ PMHx HTN, HLD, IDDM, recent DVT on Eliquis, presented from [facility] for abnormal labs and worsening sacral and heel ulcers, now POD 1, s/p Excisional debridement right buttocks ulcer. Ulcer with moderate fibrinous exudate and serous drainage P: F/U OR cultures ABX per ID Collagense to sacral and right buttock ulcer, cover with damp to dry, 4x4's and ABD pads. Reposition every two hours while in bed Air mattress recommended Use drawsheets and Trendelenburg when repositioning to reduce friction and shear Manageincontinence via timely cleansing, use of appropriate incontinence disposables and use of barrier ointment to intact skin Ensure adequate hydration/nutrition, supplementation per primary team Ensure off-loading to all bony areas (heels, ankles, hips and tailbone) with Milton/Juancarlos d/w attending Dr Solis
--- NOTE | 2018-07-24 17:35 | PN ---
Teaching Attending Note Name of Resident: Adarsh Torre ATTENDING PHYSICIAN STATEMENT I saw and evaluated the patient. I reviewed the resident's note and discussed the case with the resident. I agree with the resident's findings and plan as documented. SUBJECTIVE: Ms Estrada is asking where I was all day. Asking if her daughter will visit. Denies cp, sob, n/v OBJECTIVE: Gen: nad CV: rrr w/o m/r/g Pulm: ctab w/o w/r/r Abd: +bs, s/nt/nd Ext: bilateral heel ulceration ASSESSMENT AND PLAN: 1. Sepsis secondary to decubiti 2. Multiple decubitus ulceration 3. acute on chronic anemia 4. DM -appreciate ID and vascular surgery assistance -case d/w Dr Ohara -continue vancomycin and zosyn -wound cultures growing pseudomonas and group D strep -continue current management -no need for transfusion Problem List - Problems (1) Sepsis Code(s): A41.9 - SEPSIS, UNSPECIFIED ORGANISM (2) Diabetes Code(s): E11.9 - TYPE 2 DIABETES MELLITUS WITHOUT COMPLICATIONS Qualifiers: Diabetes mellitus type: type 2 Diabetes mellitus parking assistant insulin use: with long-term use Diabetes mellitus complication status: with skin complications Diabetes mellitus complication detail: with foot ulcer Qualified Code(s): E11.621 - Type 2 diabetes mellitus with foot ulcer; L97.509 - Non-pressure chronic ulcer of other part of unspecified foot with unspecified severity; Z79.4 - glazier stained glass (current) use of insulin (3) HLD (hyperlipidemia) Code(s): E78.5 - HYPERLIPIDEMIA, UNSPECIFIED (4) HTN (hypertension) Code(s): I10 - ESSENTIAL (PRIMARY) HYPERTENSION Qualifiers: Hypertension type: essential hypertension Qualified Code(s): I10 - Essential (primary) hypertension (5) History of DVT (deep vein thrombosis) Code(s): Z86.718 - PERSONAL HISTORY OF OTHER VENOUS THROMBOSIS AND EMBOLISM (6) Pressure ulcer of right buttock, stage 4 Code(s): L89.314 - PRESSURE ULCER OF RIGHT BUTTOCK, STAGE 4 (7) Stage 4 skin ulcer of sacral region Code(s): L98.429 - NON-PRESSURE CHRONIC ULCER OF BACK WITH UNSPECIFIED SEVERITY
[2018-07-24] MEDS: COLLAGENASE CLOSTRIDIUM HIST. 30 GRAMS TUBE TP SCH (22:38)
[2018-07-25] MEDS ORDERED: PIPERACILLIN/TAZOBACTAM 3.375 GM VIAL IVPB ONE ×3 (02:33→17:12)
[2018-07-25] MEDS ORDERED: DEXTROSE 5%-WATER - 50 ML IVPB ONE ×3 (02:33→17:13)
[2018-07-25] MEDS: PIPERACILLIN/TAZOB 3.375 GM 3.375 GM in DEXTROSE 5%-WATER - 50 ML IVPB SCH ×3 (02:40→17:25)
[2018-07-25] MEDS ORDERED: ACETAMINOPHEN 325 MG TABLET (FP) PO ONE (05:53)
[2018-07-25] MEDS: LACTATED RINGERS SOLUTION 1,000 ML/1,000 ML INFUS.BAG IV SCH ×2 (06:24→17:26)
[2018-07-25] MEDS: INSULIN SLIDING SCALE (NOVOLOG) 1 VIAL SQ SCH ×4 (06:27→22:14)
[2018-07-25] MEDS: INSULIN (LEVEMIR) 100 UNITS/ML UNITS SQ SCH (06:28)
[2018-07-25] MEDS ORDERED: INSULIN (NOVOLOG) ASPART 100 UNITS/ML 10ML VIAL ONE (06:51)
[2018-07-25] MEDS: risperiDONE 0.25 MG TABLET (FP) PO SCH ×2 (10:14→22:15)
[2018-07-25] MEDS: COLLAGENASE CLOSTRIDIUM HIST. 30 GRAMS TUBE TP SCH ×2 (10:20→22:15)
[2018-07-25] MEDS: DOCUSATE SODIUM 100 MG CAPSULE (FP) PO SCH (10:20)
--- NOTE | 2018-07-25 16:26 | PN ---
Progress Note, Physician Chief Complaint: Patient complains of being thirsty. No cp, sob, n/v. - Current Medication List Current Medications: Active Medications Collagenase (Santyl -) 1 applic TP BID [facility]; Protocol Last Admin: 07/24/18 22:38 Dose: 1 applic Docusate Sodium (Colace -) 200 mg PO DAILY [facility] Last Admin: 07/25/18 10:20 Dose: 200 mg Lactated Ringer's (Lactated Ringers Solution) 1,000 ml in 1,000 mls @ 100 mls/ hr IV ASDIR [facility]OAV Last Admin: 07/25/18 06:24 Dose: 100 mls/hr Piperacillin Sod/Tazobactam (Sod 3.375 gm/ Dextrose) 50 mls @ 100 mls/hr IVPB Q8H-IV [facility]; Protocol Last Admin: 07/25/18 10:15 Dose: 100 mls/hr Insulin Aspart (Novolog Vial Sliding Scale -) 1 vial SQ ACHS [facility]; Protocol Last Admin: 07/25/18 11:50 Dose: 1 units Insulin Detemir (Levemir Vial) 14 units SQ AM [facility] Last Admin: 07/25/18 06:28 Dose: 14 units Lorazepam (Ativan -) 0.5 mg PO BID PRN PRN Reason: ANXIETY Last Admin: 07/24/18 11:24 Dose: 0.5 mg Risperidone (Risperdal -) 0.25 mg PO BID [facility] Last Admin: 07/25/18 10:14 Dose: 0.25 mg - Objective Vital Signs: Vital Signs Temperature 37.0 C 07/25/18 16:07 Pulse Rate 109 H 07/25/18 16:07 Respiratory Rate 20 07/25/18 16:07 Blood Pressure 111/48 L 07/25/18 16:07 O2 Sat by Pulse Oximetry (%) 100 07/24/18 21:00 Constitutional: Yes: Well Nourished, No Distress, Calm Cardiovascular: Yes: Regular Rate and Rhythm. No: Gallop, Murmur, Rub Respiratory: Yes: Regular, CTA Bilaterally. No: Rales, Rhonchi, Wheezes Gastrointestinal: Yes: Normal Bowel Sounds, Soft. No: Distention, Tenderness Extremities: Yes: Other (BLE wrapped) Edema: No Labs: CBC, BMP 07/24/18 06:15 07/24/18 06:15 INR, PTT INR 1.11 (0.83-1.09) H 07/21/18 20:10 Problem List - Problems (1) Sepsis Code(s): A41.9 - SEPSIS, UNSPECIFIED ORGANISM (2) Diabetes Code(s): E11.9 - TYPE 2 DIABETES MELLITUS WITHOUT COMPLICATIONS Qualifiers: Diabetes mellitus type: type 2 Diabetes mellitus jail insulin use: with meterman use Diabetes mellitus complication status: with skin complications Diabetes mellitus complication detail: with foot ulcer Qualified Code(s): E11.621 - Type 2 diabetes mellitus with foot ulcer; L97.509 - Non-pressure chronic ulcer of other part of unspecified foot with unspecified severity; Z79.4 - halfway (current) use of insulin (3) HLD (hyperlipidemia) Code(s): E78.5 - HYPERLIPIDEMIA, UNSPECIFIED (4) HTN (hypertension) Code(s): I10 - ESSENTIAL (PRIMARY) HYPERTENSION Qualifiers: Hypertension type: essential hypertension Qualified Code(s): I10 - Essential (primary) hypertension (5) History of DVT (deep vein thrombosis) Code(s): Z86.718 - PERSONAL HISTORY OF OTHER VENOUS THROMBOSIS AND EMBOLISM (6) Pressure ulcer of right buttock, stage 4 Code(s): L89.314 - PRESSURE ULCER OF RIGHT BUTTOCK, STAGE 4 (7) Stage 4 skin ulcer of sacral region Code(s): L98.429 - NON-PRESSURE CHRONIC ULCER OF BACK WITH UNSPECIFIED SEVERITY Assessment/Plan -appreciate ID and vascular surgery assistance -continue zosyn per Dr Ohara's recommendations -continue wound care -continue current management
[2018-07-26] MEDS ORDERED: PIPERACILLIN/TAZOBACTAM 3.375 GM VIAL IVPB ONE ×3 (01:45→16:48)
[2018-07-26] MEDS ORDERED: DEXTROSE 5%-WATER - 50 ML IVPB ONE ×3 (01:45→16:48)
[2018-07-26] MEDS: PIPERACILLIN/TAZOB 3.375 GM 3.375 GM in DEXTROSE 5%-WATER - 50 ML IVPB SCH ×3 (02:04→17:45)
[2018-07-26] MEDS: LACTATED RINGERS SOLUTION 1,000 ML/1,000 ML INFUS.BAG IV SCH (02:13)
[2018-07-26] MEDS: INSULIN (LEVEMIR) 100 UNITS/ML UNITS SQ SCH (06:28)
[2018-07-26] MEDS: INSULIN SLIDING SCALE (NOVOLOG) 1 VIAL SQ SCH ×4 (06:28→22:47)
[2018-07-26] MEDS ORDERED: INSULIN (NOVOLOG) ASPART 100 UNITS/ML 10ML VIAL ONE ×2 (06:47→20:16)
[2018-07-26 07:05] LABS: BASO % 0.9 % (0-2.0); EOS % 4.2 % (0-4.5); HEMATOCRIT 25.9 % (32.4-45.2); HEMOGLOBIN 7.9 GM/dL (10.7-15.3); LYMPH % 24.5 % (8-40); MCH 27.4 pg (25.7-33.7); MCHC 30.7 g/dl (32.0-36.0); MEAN CELL VOLUME 89.4 fl (80-96); MEAN PLT VOLUME 7.3 fl (7.5-11.1); MONO % 10.6 % (3.8-10.2); NEUT % 59.8 % (42.8-82.8); PLATELET COUNT 547 K/MM3 (134-434); RBC 2.89 M/mm3 (3.60-5.2); RDW 17.8 % (11.6-15.6); WHITE BLOOD COUNT 5.5 K/mm3 (4.0-10.0)
[2018-07-26 07:53] LABS: ANION GAP 9 MMOL/L (8-16); BLOOD UREA NITROGEN 11 mg/dL (7-18); CALCIUM 8.6 mg/dL (8.5-10.1); CHLORIDE 118 mmol/L (98-107); CO2 23 mmol/L (21-32); GLUCOSE,RANDOM 106 mg/dL (74-106); PHOSPHOROUS 4.8 mg/dL (2.5-4.9); POTASSIUM 4.3 mmol/L (3.5-5.1); SODIUM 150 mmol/L (136-145)
[2018-07-26] MEDS: DOCUSATE SODIUM 100 MG CAPSULE (FP) PO SCH (10:30)
[2018-07-26] MEDS: risperiDONE 0.25 MG TABLET (FP) PO SCH ×2 (10:30→22:48)
[2018-07-26] MEDS: DEXTROSE 5%-WATER - 1,000 ML IV SCH (11:27)
[2018-07-26] MEDS: COLLAGENASE CLOSTRIDIUM HIST. 30 GRAMS TUBE TP SCH ×2 (11:29→22:49)
--- NOTE | 2018-07-26 12:11 | PN ---
Progress Note, Physician Chief Complaint: Ms Etsrada remains thirsty but denies other complaints. No cp, sob, n/v. - Current Medication List Current Medications: Active Medications Collagenase (Santyl -) 1 applic TP BID [facility]; Protocol Last Admin: 07/26/18 11:29 Dose: 1 applic Docusate Sodium (Colace -) 200 mg PO DAILY [facility] Last Admin: 07/26/18 10:30 Dose: 200 mg Piperacillin Sod/Tazobactam (Sod 3.375 gm/ Dextrose) 50 mls @ 100 mls/hr IVPB Q8H-IV [facility]; Protocol Last Admin: 07/26/18 10:15 Dose: 100 mls/hr Dextrose (D5w -) 1,000 mls @ 75 mls/hr IV ASDIR [facility] Last Admin: 07/26/18 11:27 Dose: 75 mls/hr Insulin Aspart (Novolog Vial Sliding Scale -) 1 vial SQ ACHS [facility]; Protocol Last Admin: 07/26/18 11:30 Dose: Not Given Insulin Detemir (Levemir Vial) 14 units SQ AM [facility] Last Admin: 07/26/18 06:28 Dose: 14 units Lorazepam (Ativan -) 0.5 mg PO BID PRN PRN Reason: ANXIETY Last Admin: 07/24/18 11:24 Dose: 0.5 mg Risperidone (Risperdal -) 0.25 mg PO BID [facility] Last Admin: 07/26/18 10:30 Dose: 0.25 mg - Objective Vital Signs: Vital Signs Temperature 36.9 C 07/26/18 06:00 Pulse Rate 114 H 07/26/18 06:00 Respiratory Rate 18 07/26/18 06:00 Blood Pressure 130/66 07/26/18 06:00 O2 Sat by Pulse Oximetry (%) 99 07/25/18 21:00 Constitutional: Yes: Well Nourished, No Distress, Calm Cardiovascular: Yes: Regular Rate and Rhythm. No: Gallop, Murmur, Rub Respiratory: Yes: Regular, CTA Bilaterally. No: Rales, Rhonchi, Wheezes Gastrointestinal: Yes: Normal Bowel Sounds, Soft. No: Distention, Tenderness Extremities: Yes: Other (BLE wrapped) Edema: No Labs: CBC, BMP 07/26/18 06:20 07/26/18 06:00 INR, PTT INR 1.11 (0.83-1.09) H 07/21/18 20:10 Problem List - Problems (1) Sepsis Code(s): A41.9 - SEPSIS, UNSPECIFIED ORGANISM (2) Diabetes Code(s): E11.9 - TYPE 2 DIABETES MELLITUS WITHOUT COMPLICATIONS Qualifiers: Diabetes mellitus type: type 2 Diabetes mellitus assisted insulin use: with ad terminal makeup operator use Diabetes mellitus complication status: with skin complications Diabetes mellitus complication detail: with foot ulcer Qualified Code(s): E11.621 - Type 2 diabetes mellitus with foot ulcer; L97.509 - Non-pressure chronic ulcer of other part of unspecified foot with unspecified severity; Z79.4 - jail (current) use of insulin (3) HLD (hyperlipidemia) Code(s): E78.5 - HYPERLIPIDEMIA, UNSPECIFIED (4) HTN (hypertension) Code(s): I10 - ESSENTIAL (PRIMARY) HYPERTENSION Qualifiers: Hypertension type: essential hypertension Qualified Code(s): I10 - Essential (primary) hypertension (5) History of DVT (deep vein thrombosis) Code(s): Z86.718 - PERSONAL HISTORY OF OTHER VENOUS THROMBOSIS AND EMBOLISM (6) Pressure ulcer of right buttock, stage 4 Code(s): L89.314 - PRESSURE ULCER OF RIGHT BUTTOCK, STAGE 4 (7) Stage 4 skin ulcer of sacral region Code(s): L98.429 - NON-PRESSURE CHRONIC ULCER OF BACK WITH UNSPECIFIED SEVERITY (8) Acute hypernatremia Code(s): E87.0 - HYPEROSMOLALITY AND HYPERNATREMIA Assessment/Plan -continue zosyn per Dr Ohara's recommendation -now hypernatremic -place on D5W -continue current management
--- NOTE | 2018-07-26 12:50 | PN ---
Progress Note, Physician History of Present Illness: stable no new issues - Current Medication List Current Medications: Active Medications Collagenase (Santyl -) 1 applic TP BID [facility]; Protocol Last Admin: 07/26/18 11:29 Dose: 1 applic Docusate Sodium (Colace -) 200 mg PO DAILY [facility] Last Admin: 07/26/18 10:30 Dose: 200 mg Piperacillin Sod/Tazobactam (Sod 3.375 gm/ Dextrose) 50 mls @ 100 mls/hr IVPB Q8H-IV [facility]; Protocol Last Admin: 07/26/18 10:15 Dose: 100 mls/hr Dextrose (D5w -) 1,000 mls @ 75 mls/hr IV ASDIR [facility] Last Admin: 07/26/18 11:27 Dose: 75 mls/hr Insulin Aspart (Novolog Vial Sliding Scale -) 1 vial SQ ACHS [facility]; Protocol Last Admin: 07/26/18 11:30 Dose: Not Given Insulin Detemir (Levemir Vial) 14 units SQ AM [facility] Last Admin: 07/26/18 06:28 Dose: 14 units Lorazepam (Ativan -) 0.5 mg PO BID PRN PRN Reason: ANXIETY Last Admin: 07/24/18 11:24 Dose: 0.5 mg Risperidone (Risperdal -) 0.25 mg PO BID [facility] Last Admin: 07/26/18 10:30 Dose: 0.25 mg - Objective Vital Signs: Vital Signs Temperature 98.4 F 07/26/18 06:00 Pulse Rate 114 H 07/26/18 06:00 Respiratory Rate 18 07/26/18 06:00 Blood Pressure 130/66 07/26/18 06:00 O2 Sat by Pulse Oximetry (%) 99 07/25/18 21:00 Constitutional: Yes: No Distress, Calm Cardiovascular: Yes: S1, S2 Respiratory: Yes: Regular, CTA Bilaterally Gastrointestinal: Yes: Normal Bowel Sounds, Soft Musculoskeletal: Yes: WNL Extremities: Yes: Other Wound/Incision: Yes: Other (sacral decubitus) Psychiatric: Yes: Alert, Oriented Labs: CBC, BMP 07/26/18 06:20 07/26/18 06:00 INR, PTT INR 1.11 (0.83-1.09) H 07/21/18 20:10 Assessment/Plan ASSESSMENT/PLAN: 73 yo female with PMH of HTN, HLD, IDDM, recent DVT on Eliquis, presented from [facility] for abnormal labs and worsening sacral and heel ulcers Sepsis IDDM DVT infected wound sacral decubitus uti plan continue abx cx and sensitivities noted rest as per the team will d/w the team
[2018-07-27] MEDS ORDERED: DEXTROSE 5%-WATER - 50 ML IVPB ONE ×3 (01:05→14:43)
[2018-07-27] MEDS ORDERED: PIPERACILLIN/TAZOBACTAM 3.375 GM VIAL IVPB ONE ×3 (01:05→14:43)
[2018-07-27] MEDS: PIPERACILLIN/TAZOB 3.375 GM 3.375 GM in DEXTROSE 5%-WATER - 50 ML IVPB SCH ×3 (01:35→17:24)
[2018-07-27] MEDS: DEXTROSE 5%-WATER - 1,000 ML IV SCH ×3 (01:36→16:23)
[2018-07-27] MEDS ORDERED: diphenhydrAMINE HCL 25 MG CAPSULE (FP) PO ONE (05:38)
[2018-07-27] MEDS: INSULIN SLIDING SCALE (NOVOLOG) 1 VIAL SQ SCH ×4 (06:32→22:28)
[2018-07-27] MEDS: INSULIN (LEVEMIR) 100 UNITS/ML UNITS SQ SCH (06:33)
[2018-07-27] MEDS ORDERED: INSULIN (NOVOLOG) ASPART 100 UNITS/ML 10ML VIAL ONE ×2 (06:38→19:56)
[2018-07-27] MEDS ORDERED: INSULIN (LEVEMIR) 100 UNITS/ML UNITS SQ ONE (06:38)
[2018-07-27 07:14] LABS: BASO % 0.6 % (0-2.0); EOS % 3.6 % (0-4.5); HEMATOCRIT 25.9 % (32.4-45.2); MCH 27.9 pg (25.7-33.7); MCHC 30.7 g/dl (32.0-36.0); MEAN CELL VOLUME 90.8 fl (80-96); MEAN PLT VOLUME 7.8 fl (7.5-11.1); MONO % 5.2 % (3.8-10.2); NEUT % 74.6 % (42.8-82.8); PLATELET COUNT 483 K/MM3 (134-434); RBC 2.85 M/mm3 (3.60-5.2); WHITE BLOOD COUNT 9.5 K/mm3 (4.0-10.0)
[2018-07-27 07:40] LABS: ANION GAP 11 MMOL/L (8-16); BLOOD UREA NITROGEN 11 mg/dL (7-18); CALCIUM 7.8 mg/dL (8.5-10.1); CHLORIDE 108 mmol/L (98-107); CO2 23 mmol/L (21-32); CREATININE 1.1 mg/dL (0.55-1.3); GLUCOSE,RANDOM 165 mg/dL (74-106); MAGNESIUM 1.7 mg/dL (1.8-2.4); PHOSPHOROUS 3.9 mg/dL (2.5-4.9); POTASSIUM 4.2 mmol/L (3.5-5.1); SODIUM 141 mmol/L (136-145)
[2018-07-27] MEDS: DOCUSATE SODIUM 100 MG CAPSULE (FP) PO SCH (10:31)
[2018-07-27] MEDS: COLLAGENASE CLOSTRIDIUM HIST. 30 GRAMS TUBE TP SCH ×2 (10:33→22:32)
[2018-07-27] MEDS: risperiDONE 0.25 MG TABLET (FP) PO SCH ×2 (10:37→22:28)
--- NOTE | 2018-07-27 11:33 | PN ---
Progress Note, Physician History of Present Illness: patient stable no new issues wound is clean has been debrided c/o of itching - Current Medication List Current Medications: Active Medications Collagenase (Santyl -) 1 applic TP BID [facility]; Protocol Last Admin: 07/27/18 10:33 Dose: 1 applic Docusate Sodium (Colace -) 200 mg PO DAILY [facility] Last Admin: 07/27/18 10:31 Dose: 200 mg Piperacillin Sod/Tazobactam (Sod 3.375 gm/ Dextrose) 50 mls @ 100 mls/hr IVPB Q8H-IV [facility]; Protocol Last Admin: 07/27/18 10:32 Dose: 100 mls/hr Dextrose (D5w -) 1,000 mls @ 75 mls/hr IV ASDIR [facility] Last Admin: 07/27/18 10:31 Dose: Not Given Insulin Aspart (Novolog Vial Sliding Scale -) 1 vial SQ ACHS [facility]; Protocol Last Admin: 07/27/18 06:32 Dose: 2 units Insulin Detemir (Levemir Vial) 14 units SQ AM [facility] Last Admin: 07/27/18 06:33 Dose: 14 units Lorazepam (Ativan -) 0.5 mg PO BID PRN PRN Reason: ANXIETY Last Admin: 07/24/18 11:24 Dose: 0.5 mg Risperidone (Risperdal -) 0.25 mg PO BID [facility] Last Admin: 07/27/18 10:37 Dose: 0.25 mg - Objective Vital Signs: Vital Signs Temperature 98.8 F 07/27/18 05:00 Pulse Rate 118 H 07/27/18 05:00 Respiratory Rate 20 07/27/18 05:00 Blood Pressure 132/77 07/27/18 05:00 O2 Sat by Pulse Oximetry (%) 98 07/26/18 20:52 Constitutional: Yes: No Distress, Calm, Other (bed bound) Cardiovascular: Yes: Regular Rate and Rhythm Respiratory: Yes: Regular, CTA Bilaterally Gastrointestinal: Yes: Normal Bowel Sounds, Soft Musculoskeletal: Yes: Other Extremities: Yes: Other Wound/Incision: Yes: Dressing Dry and Intact Neurological: Yes: Alert, Oriented Psychiatric: Yes: Alert, Oriented Labs: CBC, BMP 07/27/18 06:15 07/27/18 06:15 INR, PTT INR 1.11 (0.83-1.09) H 07/21/18 20:10 Assessment/Plan ASSESSMENT/PLAN: 73 yo female with PMH of HTN, HLD, IDDM, recent DVT on Eliquis, presented from [facility] for abnormal labs and worsening sacral and heel ulcers Sepsis IDDM DVT infected wound sacral decubitus uti plan continue abx cx and sensitivities noted rest as per the team will d/w the team patient stable
[2018-07-27] MEDS: MINERAL OIL/PET HY-PHL TOPICAL OINTMENT 454 GM JAR TP SCH ×2 (14:49→22:28)
--- NOTE | 2018-07-27 16:42 | PN ---
Physical Exam: SUBJECTIVE: Patient seen and examined at bedside. Itching overnight , given Benadryl. Sleeping but arousable. Denies CP,RUIZ, SOB, Abdominal pain, nausea or vomiting. OBJECTIVE: Vital Signs Period Temp Pulse Resp BP Sys/Uribe Pulse Ox Last 24 Hr 98.3 F-99.1 F 99-126 20-20 118-143/54-77 98-99 GENERAL:lethargic HEAD: NCAT EYES: Pupils reactive to light, left pupil more dilated than right, no scleral icterus EARS, NOSE, THROAT: oropharynx clear without exudates. dry mucous membranes. NECK: supple without lymphadenopathy or JVD LUNGS: CTA b/l, no crackles or wheezes HEART: Tachycardic, regular rhythm, normal S1 and S2 without murmur ABDOMEN: Soft, nontender to palpation, normoactive bowel sounds EXTREMITIES: 1+ pulses, wounds: right ankle 1cm X 1cm, right post foot 1 cm X 1cm, right heel 10cm X 8cm, left post foot 1cm X 1cm, left heel 8cm X 7cm, NEUROLOGICAL: Cranial nerves II-XII grossly intact. minimal speech, says she does not speak well but can appropriately answer questioning with short responses SKIN: Sacral ulcer bandaged C/D/I Laboratory Results - last 24 hr 07/26/18 07/26/18 07/27/18 16:34 22:47 06:15 WBC 9.5 RBC 2.85 L Hgb 8.0 L Hct 25.9 L MCV 90.8 MCH 27.9 MCHC 30.7 L RDW 18.0 H Plt Count 483 H MPV 7.8 Absolute Neuts (auto) 7.0 Neutrophils % 74.6 D Lymphocytes % 16.0 D Monocytes % 5.2 Eosinophils % 3.6 Basophils % 0.6 Nucleated RBC % 0 Sodium Potassium Chloride Carbon Dioxide Anion Gap BUN Creatinine Creat Clearance w eGFR POC Glucometer 211 209 Random Glucose Calcium Phosphorus Magnesium 07/27/18 07/27/18 07/27/18 06:15 06:31 11:32 WBC RBC Hgb Hct MCV MCH MCHC RDW Plt Count MPV Absolute Neuts (auto) Neutrophils % Lymphocytes % Monocytes % Eosinophils % Basophils % Nucleated RBC % Sodium 141 Potassium 4.2 Chloride 108 H Carbon Dioxide 23 Anion Gap 11 BUN 11 Creatinine 1.1 Creat Clearance w eGFR 48.82 POC Glucometer 196 167 Random Glucose 165 H Calcium 7.8 L Phosphorus 3.9 Magnesium 1.7 L Active Medications Generic Name Dose Route Start Last Admin Trade Name Ariel PRN Reason Stop Dose Admin Collagenase 1 applic 07/24/18 14:36 07/27/18 10:33 Santyl - TP 1 applic BID YOAV Administration Protocol Docusate Sodium 200 mg 07/24/18 10:00 07/27/18 10:31 Colace - PO 200 mg DAILY YOAV Administration Emollient Ointment 1 applic 07/27/18 12:45 07/27/18 14:49 Aquaphor - TP 1 applic BID YOAV Administration Piperacillin Sod/Tazobactam 50 mls @ 100 mls/hr 07/23/18 18:00 07/27/18 10:32 Sod 3.375 gm/ Dextrose IVPB 100 mls/hr Q8H-IV YOAV Administration Protocol Dextrose 1,000 mls @ 75 mls/hr 07/26/18 08:15 07/27/18 16:23 D5w - IV 75 mls/hr ASDIR YOAV Administration Insulin Aspart 1 vial 07/23/18 16:30 07/27/18 16:21 Novolog Vial Sliding Scale - SQ Not Given ACHS YOAV Protocol Insulin Detemir 14 units 07/24/18 07:00 07/27/18 06:33 Levemir Vial SQ 14 units AM YOAV Administration Lorazepam 0.5 mg 07/23/18 13:36 07/24/18 11:24 Ativan - PO 0.5 mg BID PRN Administration ANXIETY Risperidone 0.25 mg 07/23/18 22:00 07/27/18 10:37 Risperdal - PO 0.25 mg BID YOAV Administration ASSESSMENT/PLAN: 73 yo female with PMH of HTN, HLD, IDDM, recent DVT on Eliquis, presented from [facility] for abnormal labs and worsening sacral and heel ulcers. Problem List - Problems (1) Sepsis Assessment/Plan: most likely 2/2 wound infection * POD #5 s/p debridement. * wound culture shows presumptive Pseudomonas - On Vanco/Zosyn ; ID on board. * IVF with LR @ 100ml/hr * repeat lactic acid 1.1 * AC with elquis held for procedure, will discuss with vascular when to restart. (2) Diabetes Assessment/Plan: * ADA diet. * BGM ACHS * ISS ACHS * Levamir 14 units in AM Qualifiers: Diabetes mellitus type: type 2 Diabetes mellitus rodent exterminator insulin use: with rodent exterminator use Diabetes mellitus complication status: with skin complications Diabetes mellitus complication detail: with foot ulcer Qualified Code(s): E11.621 - Type 2 diabetes mellitus with foot ulcer; L97.509 - Non-pressure chronic ulcer of other part of unspecified foot with unspecified severity; Z79.4 - [facility] (current) use of insulin (3) Recurrent deep vein thrombosis (DVT) Assessment/Plan: on eliquis * held for procedure (4) Transaminitis Assessment/Plan: present on last admission * Abdominal US shows chololithiasis with midly dialated CBD, and mild hepatomegally * refuses CCY * will monitor Visit type - Emergency Visit Emergency Visit: Yes ED Registration Date: 07/21/18 Care time: The patient presented to the Emergency Department on the above date and was hospitalized for further evaluation of their emergent condition. - New Patient This patient is new to me today: No - Critical Care Critical Care patient: No
--- NOTE | 2018-07-27 17:00 | PN ---
Teaching Attending Note Name of Resident: Adarsh Torre ATTENDING PHYSICIAN STATEMENT I saw and evaluated the patient. I reviewed the resident's note and discussed the case with the resident. I agree with the resident's findings and plan as documented. SUBJECTIVE: Patient lethargic today after receiving benadryl last night OBJECTIVE: Gen: lethargic but arousable CV: rrr w/o m/r/g Pulm: ctab w/o w/r/r Abd: +bs, s/nt/nd Ext: eschar noted on heels ASSESSMENT AND PLAN: -continue D5W for hypernatremia -strict I/Os secondary to diuresis -continue antibiotics per ID -continue current management Problem List - Problems (1) Sepsis Code(s): A41.9 - SEPSIS, UNSPECIFIED ORGANISM (2) Diabetes Code(s): E11.9 - TYPE 2 DIABETES MELLITUS WITHOUT COMPLICATIONS Qualifiers: Diabetes mellitus type: type 2 Diabetes mellitus intermediate accountant insulin use: with intermediate accountant use Diabetes mellitus complication status: with skin complications Diabetes mellitus complication detail: with foot ulcer Qualified Code(s): E11.621 - Type 2 diabetes mellitus with foot ulcer; L97.509 - Non-pressure chronic ulcer of other part of unspecified foot with unspecified severity; Z79.4 - jail (current) use of insulin (3) HLD (hyperlipidemia) Code(s): E78.5 - HYPERLIPIDEMIA, UNSPECIFIED (4) HTN (hypertension) Code(s): I10 - ESSENTIAL (PRIMARY) HYPERTENSION Qualifiers: Hypertension type: essential hypertension Qualified Code(s): I10 - Essential (primary) hypertension (5) History of DVT (deep vein thrombosis) Code(s): Z86.718 - PERSONAL HISTORY OF OTHER VENOUS THROMBOSIS AND EMBOLISM (6) Pressure ulcer of right buttock, stage 4 Code(s): L89.314 - PRESSURE ULCER OF RIGHT BUTTOCK, STAGE 4 (7) Stage 4 skin ulcer of sacral region Code(s): L98.429 - NON-PRESSURE CHRONIC ULCER OF BACK WITH UNSPECIFIED SEVERITY (8) Acute hypernatremia Code(s): E87.0 - HYPEROSMOLALITY AND HYPERNATREMIA
--- NOTE | 2018-07-27 17:48 | PATH ---
Surgical Pathology Report Patient Name: TOBIAS RATLIFF Med. Rec. #: [id number] /Age/Gender: 1945 (Age: 73) / F Account: [id number] Location: [facility] MED/SURG Taken: 07/23/2018 Received: 07/24/2018 Reported: 07/27/2018 Physicians: Romero Thomson M.D. Specimen(s) Received DEBRIDEMENT TISSUE, ULCER RIGHT BUTTOCKS Clinical History Right buttocks ulcer Final Diagnosis BUTTOCKS, RIGHT, ULCER, TISSUE DEBRIDEMENT: FIBROADIPOSE TISSUE WITH MARKED ACUTE NECROTIZING INFLAMMATION. Electronically Signed Delfina Jimenez M.D. Gross Description Received in formalin labeled "tissue debridement right ulcer buttocks," is a 4.5 x 4.5 x 3.0 cm aggregate of kelly méndez, necrotic portions of soft tissue. Triage Register Nurse sections are submitted in one cassette. 07/24/201807/24/2018
[2018-07-28] MEDS ORDERED: PIPERACILLIN/TAZOBACTAM 3.375 GM VIAL IVPB ONE ×4 (02:16→23:37)
[2018-07-28] MEDS ORDERED: DEXTROSE 5%-WATER - 50 ML IVPB ONE ×4 (02:16→23:37)
[2018-07-28] MEDS: PIPERACILLIN/TAZOB 3.375 GM 3.375 GM in DEXTROSE 5%-WATER - 50 ML IVPB SCH ×3 (02:33→17:03)
[2018-07-28] MEDS: DEXTROSE 5%-WATER - 1,000 ML IV SCH ×2 (06:57→09:55)
[2018-07-28] MEDS: INSULIN SLIDING SCALE (NOVOLOG) 1 VIAL SQ SCH ×4 (06:57→22:59)
[2018-07-28] MEDS: INSULIN (LEVEMIR) 100 UNITS/ML UNITS SQ SCH (06:58)
[2018-07-28 07:05] LABS: BASO % 0.6 % (0-2.0); EOS % 6.7 % (0-4.5); HEMATOCRIT 23.2 % (32.4-45.2); HEMOGLOBIN 7.2 GM/dL (10.7-15.3); LYMPH % 28.2 % (8-40); MCH 28.1 pg (25.7-33.7); MEAN CELL VOLUME 90.8 fl (80-96); MEAN PLT VOLUME 7.6 fl (7.5-11.1); MONO % 7.1 % (3.8-10.2); NEUT % 57.4 % (42.8-82.8); PLATELET COUNT 486 K/MM3 (134-434); RBC 2.56 M/mm3 (3.60-5.2); RDW 18.7 % (11.6-15.6); WHITE BLOOD COUNT 7.4 K/mm3 (4.0-10.0)
[2018-07-28 07:51] LABS: ALBUMIN 1.4 g/dl (3.4-5.0); ALK PHOS 103 U/L (45-117); ANION GAP 9 MMOL/L (8-16); BILIRUBIN,TOTAL 0.2 mg/dL (0.2-1); BLOOD UREA NITROGEN 10 mg/dL (7-18); CALCIUM 7.5 mg/dL (8.5-10.1); CHLORIDE 113 mmol/L (98-107); CO2 22 mmol/L (21-32); CREATININE 1.3 mg/dL (0.55-1.3); GLUCOSE,RANDOM 113 mg/dL (74-106); POTASSIUM 4.1 mmol/L (3.5-5.1); SGOT/AST 12 U/L (15-37); SGPT/ALT 19 U/L (13-61); SODIUM 144 mmol/L (136-145); TOT PROT 4.8 g/dl (6.4-8.2)
[2018-07-28] MEDS: DOCUSATE SODIUM 100 MG CAPSULE (FP) PO SCH (09:59)
[2018-07-28] MEDS: COLLAGENASE CLOSTRIDIUM HIST. 30 GRAMS TUBE TP SCH ×2 (10:00→23:02)
[2018-07-28] MEDS: MINERAL OIL/PET HY-PHL TOPICAL OINTMENT 454 GM JAR TP SCH ×2 (10:00→23:00)
[2018-07-28] MEDS: risperiDONE 0.25 MG TABLET (FP) PO SCH ×2 (10:00→23:00)
[2018-07-28] MEDS ORDERED: ACETAMINOPHEN 325 MG TABLET (FP) PO PRN (12:00)
--- NOTE | 2018-07-28 12:52 | PN ---
Progress Note, Physician History of Present Illness: patient with low grade fever otherwise comfortable - Current Medication List Current Medications: Active Medications Acetaminophen (Tylenol -) 650 mg PO Q6H PRN PRN Reason: FEVER Collagenase (Santyl -) 1 applic TP BID [facility]; Protocol Last Admin: 07/28/18 10:00 Dose: 1 applic Docusate Sodium (Colace -) 200 mg PO DAILY [facility] Last Admin: 07/28/18 09:59 Dose: 200 mg Emollient Ointment (Aquaphor -) 1 applic TP BID [facility] Last Admin: 07/28/18 10:00 Dose: 1 applic Piperacillin Sod/Tazobactam (Sod 3.375 gm/ Dextrose) 50 mls @ 100 mls/hr IVPB Q8H-IV [facility]; Protocol Last Admin: 07/28/18 09:59 Dose: 100 mls/hr Dextrose (D5w -) 1,000 mls @ 75 mls/hr IV ASDIR [facility] Last Admin: 07/28/18 09:55 Dose: Not Given Insulin Aspart (Novolog Vial Sliding Scale -) 1 vial SQ ACHS [facility]; Protocol Last Admin: 07/28/18 11:41 Dose: 4 units Insulin Detemir (Levemir Vial) 14 units SQ AM [facility] Last Admin: 07/28/18 06:58 Dose: 14 units Lorazepam (Ativan -) 0.5 mg PO BID PRN PRN Reason: ANXIETY Last Admin: 07/24/18 11:24 Dose: 0.5 mg Magnesium Oxide (Mag-Ox -) 400 mg PO BID [facility] Risperidone (Risperdal -) 0.25 mg PO BID [facility] Last Admin: 07/28/18 10:00 Dose: 0.25 mg - Objective Vital Signs: Vital Signs Temperature 99.6 F 07/28/18 08:58 Pulse Rate 115 H 07/28/18 08:58 Respiratory Rate 20 07/28/18 08:58 Blood Pressure 140/63 07/28/18 08:58 O2 Sat by Pulse Oximetry (%) 99 07/27/18 21:00 Constitutional: Yes: No Distress, Calm Cardiovascular: Yes: S1, S2 Respiratory: Yes: Regular, CTA Bilaterally Gastrointestinal: Yes: Normal Bowel Sounds, Soft Musculoskeletal: Yes: WNL Extremities: Yes: Other Neurological: Yes: Alert, Oriented Psychiatric: Yes: Alert, Oriented Labs: CBC, BMP 07/28/18 06:30 07/28/18 06:30 INR, PTT INR 1.11 (0.83-1.09) H 07/21/18 20:10 Assessment/Plan ASSESSMENT/PLAN: 73 yo female with PMH of HTN, HLD, IDDM, recent DVT on Eliquis, presented from [facility] for abnormal labs and worsening sacral and heel ulcers Sepsis IDDM DVT infected wound sacral decubitus uti plan continue abx wound care rest as per the team will d/w the team
--- NOTE | 2018-07-28 15:09 | PN ---
Teaching Attending Note Name of Resident: Adarsh Torre ATTENDING PHYSICIAN STATEMENT I saw and evaluated the patient. I reviewed the resident's note and discussed the case with the resident. I agree with the resident's findings and plan as documented. SUBJECTIVE: Ms Estrada says she feels "ok" today. Also says she is thirsty and is requesting water. No cp, sob, n/v. OBJECTIVE: Gen: nad CV: rrr w/o m/r/g Pulm: ctab w/o w/r/r Abd: +bs, s/nt/nd ASSESSMENT/PLAN -noted patient still with significant diuresis -case d/w community health nurse staff, patient drinking significant amount of fluids that are not being recorded -case d/w Dr Bhagat who will see in consultation since sodium is still volatile -stop D5W -continue antibiotics -considering [place] for wound care Problem List - Problems (1) Sepsis Code(s): A41.9 - SEPSIS, UNSPECIFIED ORGANISM (2) Diabetes Code(s): E11.9 - TYPE 2 DIABETES MELLITUS WITHOUT COMPLICATIONS Qualifiers: Diabetes mellitus type: type 2 Diabetes mellitus remote computer terminal operator insulin use: with remote computer terminal operator use Diabetes mellitus complication status: with skin complications Diabetes mellitus complication detail: with foot ulcer Qualified Code(s): E11.621 - Type 2 diabetes mellitus with foot ulcer; L97.509 - Non-pressure chronic ulcer of other part of unspecified foot with unspecified severity; Z79.4 - terminal gauger supervisor (current) use of insulin (3) HLD (hyperlipidemia) Code(s): E78.5 - HYPERLIPIDEMIA, UNSPECIFIED (4) HTN (hypertension) Code(s): I10 - ESSENTIAL (PRIMARY) HYPERTENSION Qualifiers: Hypertension type: essential hypertension Qualified Code(s): I10 - Essential (primary) hypertension (5) History of DVT (deep vein thrombosis) Code(s): Z86.718 - PERSONAL HISTORY OF OTHER VENOUS THROMBOSIS AND EMBOLISM (6) Pressure ulcer of right buttock, stage 4 Code(s): L89.314 - PRESSURE ULCER OF RIGHT BUTTOCK, STAGE 4 (7) Stage 4 skin ulcer of sacral region Code(s): L98.429 - NON-PRESSURE CHRONIC ULCER OF BACK WITH UNSPECIFIED SEVERITY (8) Acute hypernatremia Code(s): E87.0 - HYPEROSMOLALITY AND HYPERNATREMIA
--- NOTE | 2018-07-28 15:29 | PN ---
Physical Exam: SUBJECTIVE: Patient seen and examined at bedside. Overnight events noted. No new complaints. Feels better. Denies CP ,RUIZ, abdominal pain, SOB, nausea or vomiting. OBJECTIVE: Vital Signs Period Temp Pulse Resp BP Sys/Uribe Pulse Ox Last 24 Hr 97.9 F-100.1 F 111-115 18-20 108-140/50-64 99 GENERAL: Awake and alert , NAD HEAD: NCAT EYES: Pupils reactive to light, left pupil more dilated than right, no scleral icterus EARS, NOSE, THROAT: oropharynx clear without exudates. dry mucous membranes. NECK: supple without lymphadenopathy or JVD LUNGS: CTA b/l, no crackles or wheezes HEART: Tachycardic, regular rhythm, normal S1 and S2 without murmur ABDOMEN: Soft, nontender to palpation, normoactive bowel sounds EXTREMITIES: 1+ pulses, wounds: right ankle 1cm X 1cm, right post foot 1 cm X 1cm, right heel 10cm X 8cm, left post foot 1cm X 1cm, left heel 8cm X 7cm, NEUROLOGICAL: Cranial nerves II-XII grossly intact. minimal speech, says she does not speak well but can appropriately answer questioning with short responses SKIN: Sacral ulcer bandaged C/D/I Laboratory Results - last 24 hr 07/27/18 07/27/18 07/28/18 16:21 22:22 06:23 WBC RBC Hgb Hct MCV MCH MCHC RDW Plt Count MPV Absolute Neuts (auto) Neutrophils % Lymphocytes % Monocytes % Eosinophils % Basophils % Nucleated RBC % Sodium Potassium Chloride Carbon Dioxide Anion Gap BUN Creatinine Creat Clearance w eGFR POC Glucometer 113 170 128 Random Glucose Calcium Magnesium Total Bilirubin AST ALT Alkaline Phosphatase Total Protein Albumin 07/28/18 07/28/18 07/28/18 06:30 06:30 11:38 WBC 7.4 RBC 2.56 L Hgb 7.2 L Hct 23.2 L MCV 90.8 MCH 28.1 MCHC 31.0 L RDW 18.7 H Plt Count 486 H MPV 7.6 Absolute Neuts (auto) 4.3 Neutrophils % 57.4 D Lymphocytes % 28.2 D Monocytes % 7.1 Eosinophils % 6.7 H D Basophils % 0.6 Nucleated RBC % 0 Sodium 144 Potassium 4.1 Chloride 113 H Carbon Dioxide 22 Anion Gap 9 BUN 10 Creatinine 1.3 Creat Clearance w eGFR 40.26 POC Glucometer 204 Random Glucose 113 H Calcium 7.5 L Magnesium Total Bilirubin 0.2 AST 12 L ALT 19 Alkaline Phosphatase 103 Total Protein 4.8 L Albumin 1.4 L 07/28/18 13:00 WBC RBC Hgb Hct MCV MCH MCHC RDW Plt Count MPV Absolute Neuts (auto) Neutrophils % Lymphocytes % Monocytes % Eosinophils % Basophils % Nucleated RBC % Sodium Potassium Chloride Carbon Dioxide Anion Gap BUN Creatinine Creat Clearance w eGFR POC Glucometer Random Glucose Calcium Magnesium 1.9 Total Bilirubin AST ALT Alkaline Phosphatase Total Protein Albumin Active Medications Generic Name Dose Route Start Last Admin Trade Name Freq PRN Reason Stop Dose Admin Acetaminophen 650 mg 07/28/18 12:00 Tylenol - PO Q6H PRN FEVER Collagenase 1 applic 07/24/18 14:36 07/28/18 10:00 Santyl - TP 1 applic BID YOAV Administration Protocol Docusate Sodium 200 mg 07/24/18 10:00 07/28/18 09:59 Colace - PO 200 mg DAILY YOAV Administration Emollient Ointment 1 applic 07/27/18 12:45 07/28/18 10:00 Aquaphor - TP 1 applic BID YOAV Administration Piperacillin Sod/Tazobactam 50 mls @ 100 mls/hr 07/23/18 18:00 07/28/18 09:59 Sod 3.375 gm/ Dextrose IVPB 100 mls/hr Q8H-IV YOAV Administration Protocol Dextrose 1,000 mls @ 75 mls/hr 07/26/18 08:15 07/28/18 09:55 D5w - IV Not Given ASDIR YOAV Insulin Aspart 1 vial 07/23/18 16:30 07/28/18 11:41 Novolog Vial Sliding Scale - SQ 4 units ACHS YOAV Administration Protocol Insulin Detemir 14 units 07/24/18 07:00 07/28/18 06:58 Levemir Vial SQ 14 units AM YOAV Administration Lorazepam 0.5 mg 07/23/18 13:36 07/24/18 11:24 Ativan - PO 0.5 mg BID PRN Administration ANXIETY Magnesium Oxide 400 mg 07/28/18 12:30 Mag-Ox - PO BID YOAV Risperidone 0.25 mg 07/23/18 22:00 07/28/18 10:00 Risperdal - PO 0.25 mg BID YOAV Administration Microbiology 07/23/18 12:00 Tissue-Other Gram Stain - Final 07/23/18 12:00 Tissue-Other Anaerobic Culture - Final Pseudomonas Aeruginosa Vr Ec Faecalis Citrobacter Werkmanii NO ANAEROBES WERE ISOLATED ASSESSMENT/PLAN: Problem List - Problems (1) Sepsis Assessment/Plan: most likely 2/2 wound infection * POD #6 s/p debridement. * wound culture shows Pseudomonas - On Vanco/Zosyn ; ID on board. * IVF with D5 NS * May require extended antiobiotics * will speak with case resolution specialist about [place] for extended wound care. (2) Diabetes Assessment/Plan: * ADA diet. * BGM ACHS * ISS ACHS * Levamir 14 units in AM Qualifiers: Diabetes mellitus type: type 2 Diabetes mellitus intermediate teacher insulin use: with mcc use Diabetes mellitus complication status: with skin complications Diabetes mellitus complication detail: with foot ulcer Qualified Code(s): E11.621 - Type 2 diabetes mellitus with foot ulcer; L97.509 - Non-pressure chronic ulcer of other part of unspecified foot with unspecified severity; Z79.4 - senior care (current) use of insulin (3) Recurrent deep vein thrombosis (DVT) Assessment/Plan: on eliquis * held for procedure (4) Transaminitis Assessment/Plan: present on last admission * Abdominal US shows chololithiasis with midly dialated CBD, and mild hepatomegally * refuses CCY * will monitor Visit type - Emergency Visit Emergency Visit: Yes ED Registration Date: 07/21/18 Care time: The patient presented to the Emergency Department on the above date and was hospitalized for further evaluation of their emergent condition. - New Patient This patient is new to me today: No - Critical Care Critical Care patient: No
[2018-07-28] MEDS: MAGNESIUM OXIDE 400 MG TABLET (FP) PO SCH ×2 (15:32→23:00)
--- NOTE | 2018-07-28 15:46 | CONSULT ---
Consult Consult Specialty:: Nephrology Reason for Consultation:: polyuria - History of Present Illness Chief Complaint: sent in for abnormal labs History of Present Illness: Pt is a 73 year old female with pmhx of HTH, DM, HLD, a-fib, polydisia, bipolar with history of lithium use and sacral ulcers who was sent in for abnormal labs. I was called to evaluate the pt for polyuria. She has been drinking several pitcher of water and had not been restricted. Her sodium was initially low when she came in and increased through the hospital stay. She is awake and alert. She is asking for water. She denies shortness of breat or lower ext edema. - History Source History Provided By: Patient, Medical Record - Past Medical History Cardio/Vascular: Yes: HTN, Hyperlipdemia Hepatobiliary: Yes: Cholelithiasis, Other (chronically dilated CBD) Renal/: Yes: Other (polydipsia and polyuria) ...: No Psych: Yes: Bipolar Endocrine: Yes: Diabetes Mellitus - Alcohol/Substance Use Hx Alcohol Use: No History of Substance Use: reports: None - Smoking History Smoking history: Never smoked Have you smoked in the past 12 months: Yes If you are a former smoker, when did you quit?: when entered residential - Social History Usual Living Arrangement: Half-Way ADL: Support Services Occupation: retired History of Recent Travel: No Home Medications - Allergies Allergies/Adverse Reactions: Allergies Allergy/AdvReac Type Severity Reaction Status Date / Time No Known Allergies Allergy Verified 05/19/18 18:55 - Home Medications Home Medications: Ambulatory Orders Aa/Hydrolyzed Collagen, Whey [Lps 15-30 Liquid] 30 ml PO BID 05/19/18 Acetaminophen [Tylenol] 650 mg PO QID PRN 05/19/18 Apixaban [Eliquis -] 2.5 mg PO BID 05/19/18 Ascorbic Acid [Vitamin C -] 500 mg PO DAILY 05/19/18 Bacitracin - [Bacitracin Topical Ointment -] 1 applic TP BID 05/19/18 Bisacodyl [Bisacodyl -] 5 mg PO DAILY 05/19/18 Collagenase Clostridium Hist. [Santyl -] 1 applic TP BID 05/19/18 Ferrous Sulfate [Feosol] 1 tab PO DAILY 05/19/18 LORazepam [Ativan] 0.5 mg PO BID 05/19/18 Mvit,Calcium,Iron,Mins/A.acids [[place] Double Strength Capsule] 1 each PO DAILY 05/19/18 Polyethylene Glycol 3350 [Miralax 119 gm Btl -] 17 gm PO DAILY 05/19/18 Propranolol HCl 40 mg PO BID 05/19/18 Risperidone [Risperdal -] 0.25 mg PO BID 05/19/18 Senna Apex Extract [Senna] 7.5 ml PO HS 05/19/18 Ceftriaxone [Rocephin -] 1 gm IVPB DAILY 3 Days vial 06/26/18 Clindamycin [Cleocin -] 300 mg PO Q6HPO 3 Days capsule 06/26/18 Insulin (Levemir) [Levemir Vial] 6 units SQ BID@0700,2200 units 06/26/18 Insulin Sliding Scale [Novolog Vial Sliding Scale -] 1 vial SQ ACHS units 06/26 Ammonium Lactate Lotion [Lac-Hydrin 12] 1 applic TP TID PRN 07/22/18 Docusate Sodium [Colace] 2 cap PO DAILY 07/22/18 Enoxaparin Sodium [Lovenox] 80 mg SQ DAILY 07/22/18 Insulin Glargine,Hum.rec.anlog [Lantus Solostar PEN -] 14 units SQ AM 07/22/18 Insulin Lispro [Humalog Kwikpen U-100] See Protocol SQ TID 07/22/18 Sennosides [Senna] 2 tab PO DAILY 07/22/18 Family Disease History - Family Disease History Family Disease History: Heart Disease: Father (had ME), Brother ( 63 stomach cancer), CA: Sister (breast cancer) Review of Systems - Review of Systems Constitutional: reports: No Symptoms Eyes: reports: No Symptoms HENT: reports: No Symptoms Neck: reports: No Symptoms Cardiovascular: reports: No Symptoms Respiratory: reports: No Symptoms Gastrointestinal: reports: No Symptoms Genitourinary: reports: No Symptoms Musculoskeletal: reports: Other (back pain) Integumentary: reports: Other (sacral ulcers) Neurological: reports: No Symptoms Endocrine: reports: No Symptoms Physical Exam Vital Signs: Vital Signs Temperature 97.9 F 07/28/18 15:04 Pulse Rate 115 H 07/28/18 15:04 Respiratory Rate 20 07/28/18 15:04 Blood Pressure 122/64 07/28/18 15:04 O2 Sat by Pulse Oximetry (%) 99 07/27/18 21:00 Constitutional: Yes: Calm Eyes: Yes: Conjunctiva Clear Cardiovascular: Yes: S1, S2 Respiratory: Yes: CTA Bilaterally Gastrointestinal: Yes: Soft Renal/: Yes: Tejeda Present Musculoskeletal: Yes: Muscle Weakness Edema: No Neurological: Yes: Oriented Labs: CBC, BMP 07/28/18 06:30 07/28/18 06:30 Laboratory Tests 07/21/18 07/22/18 07/23/18 20:10 05:10 00:00 Hgb Sodium 131 L 137 Ur Specific [place] 1.003 L Ur Leukocyte Esterase 2+ H Urine Osmolality Ur Random Sodium 07/23/18 07/23/18 07/23/18 06:15 14:45 14:45 Hgb Sodium 141 Ur Specific [place] Ur Leukocyte Esterase Urine Osmolality 122 L Ur Random Sodium 34 L 07/24/18 07/26/18 07/26/18 06:15 06:00 06:20 Hgb 7.9 L Sodium 138 150 H Ur Specific [place] Ur Leukocyte Esterase Urine Osmolality Ur Random Sodium 07/27/18 07/27/18 07/28/18 06:15 06:15 06:30 Hgb 8.0 L Sodium 141 144 Ur Specific [place] Ur Leukocyte Esterase Urine Osmolality Ur Random Sodium Imaging - Results Chest X-ray: Report Reviewed Problem List - Problems (1) Polyuria Code(s): R35.8 - OTHER POLYURIA (2) Bipolar 1 disorder Code(s): F31.9 - BIPOLAR DISORDER, UNSPECIFIED Assessment/Plan Current Medications Generic Name Dose Route Start Last Admin Trade Name Freq PRN Reason Stop Dose Admin Acetaminophen 650 mg 07/28/18 12:00 07/28/18 15:32 Tylenol - PO 650 mg Q6H PRN Administration FEVER Collagenase 1 applic 07/24/18 14:36 07/28/18 10:00 Santyl - TP 1 applic BID YOAV Administration Protocol Docusate Sodium 200 mg 07/24/18 10:00 07/28/18 09:59 Colace - PO 200 mg DAILY YOAV Administration Emollient Ointment 1 applic 07/27/18 12:45 07/28/18 10:00 Aquaphor - TP 1 applic BID YOAV Administration Piperacillin Sod/Tazobactam 50 mls @ 100 mls/hr 07/23/18 18:00 07/28/18 09:59 Sod 3.375 gm/ Dextrose IVPB 100 mls/hr Q8H-IV YOAV Administration Protocol Dextrose 1,000 mls @ 75 mls/hr 07/26/18 08:15 07/28/18 09:55 D5w - IV Not Given ASDIR YOAV Insulin Aspart 1 vial 07/23/18 16:30 07/28/18 11:41 Novolog Vial Sliding Scale - SQ 4 units ACHS YOAV Administration Protocol Insulin Detemir 14 units 07/24/18 07:00 07/28/18 06:58 Levemir Vial SQ 14 units AM YOAV Administration Lorazepam 0.5 mg 07/23/18 13:36 07/24/18 11:24 Ativan - PO 0.5 mg BID PRN Administration ANXIETY Magnesium Oxide 400 mg 07/28/18 12:30 07/28/18 15:32 Mag-Ox - PO 400 mg BID YOAV Administration Risperidone 0.25 mg 07/23/18 22:00 07/28/18 10:00 Risperdal - PO 0.25 mg BID YOAV Administration Laboratory Tests 07/23/18 07/23/18 07/23/18 00:00 06:15 14:45 Sodium 141 Ur Specific [place] 1.003 L Urine Osmolality 122 L Impression 1. Hypernatremia 2. bipolar 3. DM 4. HTN 5. DVT 6. polydipsia Plan - restrict free water - stop fluids - check ua and osms - monitor urine output - discussed with medical team - will follow closely - from 07/23 she had a ua with a dlilute urine and a normal plasma sodium. Her urine output that day was just shy of her intake - please monitor ins and outs
[2018-07-28 19:32] LABS: URINE APPEARANCE CLEAR; URINE BILIRUBIN NEGATIVE (<2.0 mg/dL); URINE COLOR COLORLESS; URINE GLUCOSE (UA) NEGATIVE (NEGATIVE); URINE KETONE NEGATIVE (NEGATIVE); URINE LEUK ESTERASE TRACE (NEGATIVE); URINE NITRITE POSITIVE (NEGATIVE); URINE PROTEIN NEGATIVE (NEGATIVE); URINE UROBILINOGEN NEGATIVE mg/dL (0.2-1.0)
[2018-07-28 19:35] LABS: URINE BACTERIA MODERATE /hpf (NONE SEEN)
[2018-07-29] MEDS: PIPERACILLIN/TAZOB 3.375 GM 3.375 GM in DEXTROSE 5%-WATER - 50 ML IVPB SCH ×3 (01:24→17:39)
[2018-07-29] MEDS ORDERED: PT OWN MED DRAWER 7, Y5N ONE (01:37)
[2018-07-29] MEDS: INSULIN (LEVEMIR) 100 UNITS/ML UNITS SQ SCH (06:08)
[2018-07-29] MEDS: INSULIN SLIDING SCALE (NOVOLOG) 1 VIAL SQ SCH ×4 (06:08→22:58)
[2018-07-29 06:52] LABS: BASO % 0.8 % (0-2.0); EOS % 9.8 % (0-4.5); HEMATOCRIT 24.9 % (32.4-45.2); HEMOGLOBIN 7.7 GM/dL (10.7-15.3); LYMPH % 34.9 % (8-40); MEAN CELL VOLUME 90.3 fl (80-96); MEAN PLT VOLUME 7.6 fl (7.5-11.1); MONO % 9.3 % (3.8-10.2); NEUT % 45.2 % (42.8-82.8); PLATELET COUNT 481 K/MM3 (134-434); RBC 2.76 M/mm3 (3.60-5.2); RDW 18.7 % (11.6-15.6); WHITE BLOOD COUNT 5.3 K/mm3 (4.0-10.0)
[2018-07-29 07:20] LABS: ALBUMIN 1.6 g/dl (3.4-5.0); ALK PHOS 106 U/L (45-117); ANION GAP 6 MMOL/L (8-16); BILIRUBIN,TOTAL 0.2 mg/dL (0.2-1); BLOOD UREA NITROGEN 11 mg/dL (7-18); CALCIUM 8.4 mg/dL (8.5-10.1); CHLORIDE 118 mmol/L (98-107); CO2 25 mmol/L (21-32); CREATININE 1.2 mg/dL (0.55-1.3); GLUCOSE,RANDOM 134 mg/dL (74-106); POTASSIUM 4.5 mmol/L (3.5-5.1); SGOT/AST 18 U/L (15-37); SGPT/ALT 22 U/L (13-61); SODIUM 149 mmol/L (136-145); TOT PROT 5.4 g/dl (6.4-8.2)
[2018-07-29] MEDS: MAGNESIUM OXIDE 400 MG TABLET (FP) PO SCH ×2 (09:56→22:58)
[2018-07-29] MEDS: DOCUSATE SODIUM 100 MG CAPSULE (FP) PO SCH (09:56)
[2018-07-29] MEDS: risperiDONE 0.25 MG TABLET (FP) PO SCH ×2 (09:56→22:58)
[2018-07-29] MEDS: MINERAL OIL/PET HY-PHL TOPICAL OINTMENT 454 GM JAR TP SCH ×2 (09:56→22:59)
[2018-07-29] MEDS: COLLAGENASE CLOSTRIDIUM HIST. 30 GRAMS TUBE TP SCH ×2 (09:57→22:59)
[2018-07-29] MEDS ORDERED: PIPERACILLIN/TAZOBACTAM 3.375 GM VIAL IVPB ONE ×2 (10:23→17:01)
[2018-07-29] MEDS ORDERED: DEXTROSE 5%-WATER - 50 ML IVPB ONE ×2 (10:23→17:01)
--- NOTE | 2018-07-29 11:55 | PN ---
Progress Note, Physician History of Present Illness: patient stable no complaints - Current Medication List Current Medications: Active Medications Acetaminophen (Tylenol -) 650 mg PO Q6H PRN PRN Reason: FEVER Last Admin: 07/28/18 15:32 Dose: 650 mg Collagenase (Santyl -) 1 applic TP BID [facility]; Protocol Last Admin: 07/29/18 09:57 Dose: 1 applic Docusate Sodium (Colace -) 200 mg PO DAILY [facility] Last Admin: 07/29/18 09:56 Dose: 200 mg Emollient Ointment (Aquaphor -) 1 applic TP BID [facility] Last Admin: 07/29/18 09:56 Dose: 1 applic Piperacillin Sod/Tazobactam (Sod 3.375 gm/ Dextrose) 50 mls @ 100 mls/hr IVPB Q8H-IV [facility]; Protocol Last Admin: 07/29/18 10:43 Dose: 100 mls/hr Insulin Aspart (Novolog Vial Sliding Scale -) 1 vial SQ ACHS [facility]; Protocol Last Admin: 07/29/18 06:08 Dose: 2 units Insulin Detemir (Levemir Vial) 14 units SQ AM [facility] Last Admin: 07/29/18 06:08 Dose: 14 units Magnesium Oxide (Mag-Ox -) 400 mg PO BID [facility] Last Admin: 07/29/18 09:56 Dose: 400 mg Risperidone (Risperdal -) 0.25 mg PO BID [facility] Last Admin: 07/29/18 09:56 Dose: 0.25 mg - Objective Vital Signs: Vital Signs Temperature 97.4 F L 07/29/18 10:00 Pulse Rate 121 H 07/29/18 10:00 Respiratory Rate 20 07/29/18 10:00 Blood Pressure 133/63 07/29/18 10:00 O2 Sat by Pulse Oximetry (%) 96 07/28/18 20:19 Constitutional: Yes: No Distress, Calm Cardiovascular: Yes: Regular Rate and Rhythm Respiratory: Yes: Regular, CTA Bilaterally Gastrointestinal: Yes: Normal Bowel Sounds, Soft Musculoskeletal: Yes: WNL Extremities: Yes: WNL Wound/Incision: Yes: Dressing Dry and Intact Neurological: Yes: Alert, Oriented Psychiatric: Yes: Alert, Oriented Labs: CBC, BMP 07/29/18 06:00 07/29/18 06:00 INR, PTT INR 1.11 (0.83-1.09) H 07/21/18 20:10 Assessment/Plan ASSESSMENT/PLAN: 73 yo female with PMH of HTN, HLD, IDDM, recent DVT on Eliquis, presented from [facility] for abnormal labs and worsening sacral and heel ulcers Sepsis IDDM DVT infected wound sacral decubitus uti plan continue abx wound care rest as per the team will d/w the team will deescalte to oral tomorrow
[2018-07-29] MEDS ORDERED: INSULIN (NOVOLOG) ASPART 100 UNITS/ML 10ML VIAL ONE (12:02)
--- NOTE | 2018-07-29 13:44 | PN ---
Progress Note, Physician History of Present Illness: Pt seen and examined at bedside. Urine output has decreased since the fluid restriction. - Current Medication List Current Medications: Active Medications Acetaminophen (Tylenol -) 650 mg PO Q6H PRN PRN Reason: FEVER Last Admin: 07/28/18 15:32 Dose: 650 mg Collagenase (Santyl -) 1 applic TP BID [facility]; Protocol Last Admin: 07/29/18 09:57 Dose: 1 applic Docusate Sodium (Colace -) 200 mg PO DAILY [facility] Last Admin: 07/29/18 09:56 Dose: 200 mg Emollient Ointment (Aquaphor -) 1 applic TP BID [facility] Last Admin: 07/29/18 09:56 Dose: 1 applic Piperacillin Sod/Tazobactam (Sod 3.375 gm/ Dextrose) 50 mls @ 100 mls/hr IVPB Q8H-IV [facility]; Protocol Last Admin: 07/29/18 10:43 Dose: 100 mls/hr Insulin Aspart (Novolog Vial Sliding Scale -) 1 vial SQ ACHS [facility]; Protocol Last Admin: 07/29/18 12:07 Dose: 4 units Insulin Detemir (Levemir Vial) 14 units SQ AM [facility] Last Admin: 07/29/18 06:08 Dose: 14 units Magnesium Oxide (Mag-Ox -) 400 mg PO BID [facility] Last Admin: 07/29/18 09:56 Dose: 400 mg Risperidone (Risperdal -) 0.25 mg PO BID [facility] Last Admin: 07/29/18 09:56 Dose: 0.25 mg - Objective Vital Signs: Vital Signs Temperature 97.4 F L 07/29/18 10:00 Pulse Rate 121 H 07/29/18 10:00 Respiratory Rate 20 07/29/18 10:00 Blood Pressure 133/63 07/29/18 10:00 O2 Sat by Pulse Oximetry (%) 96 07/28/18 20:19 Constitutional: Yes: Calm Eyes: Yes: Conjunctiva Clear HENT: Yes: Atraumatic Cardiovascular: Yes: S1, S2 Respiratory: Yes: CTA Bilaterally Gastrointestinal: Yes: Normal Bowel Sounds, Soft Genitourinary: Yes: Tejeda Present Musculoskeletal: Yes: Muscle Weakness Edema: No Neurological: Yes: Oriented Labs: CBC, BMP 07/29/18 06:00 07/29/18 06:00 INR, PTT INR 1.11 (0.83-1.09) H 07/21/18 20:10 Problem List - Problems (1) Polyuria Code(s): R35.8 - OTHER POLYURIA (2) Bipolar 1 disorder Code(s): F31.9 - BIPOLAR DISORDER, UNSPECIFIED Assessment/Plan Current Medications Generic Name Dose Route Start Last Admin Trade Name Ariel PRN Reason Stop Dose Admin Acetaminophen 650 mg 07/28/18 12:00 07/28/18 15:32 Tylenol - PO 650 mg Q6H PRN Administration FEVER Collagenase 1 applic 07/24/18 14:36 07/29/18 09:57 Santyl - TP 1 applic BID YOAV Administration Protocol Docusate Sodium 200 mg 07/24/18 10:00 07/29/18 09:56 Colace - PO 200 mg DAILY YOAV Administration Emollient Ointment 1 applic 07/27/18 12:45 07/29/18 09:56 Aquaphor - TP 1 applic BID YOAV Administration Piperacillin Sod/Tazobactam 50 mls @ 100 mls/hr 07/23/18 18:00 07/29/18 10:43 Sod 3.375 gm/ Dextrose IVPB 100 mls/hr Q8H-IV YOAV Administration Protocol Insulin Aspart 1 vial 07/23/18 16:30 07/29/18 12:07 Novolog Vial Sliding Scale - SQ 4 units ACHS YOAV Administration Protocol Insulin Detemir 14 units 07/24/18 07:00 07/29/18 06:08 Levemir Vial SQ 14 units AM YOAV Administration Magnesium Oxide 400 mg 07/28/18 12:30 07/29/18 09:56 Mag-Ox - PO 400 mg BID YOAV Administration Risperidone 0.25 mg 07/23/18 22:00 07/29/18 09:56 Risperdal - PO 0.25 mg BID YOAV Administration Impression 1. Hypernatremia 2. bipolar 3. DM 4. HTN 5. DVT 6. polydipsia Plan - cont fluid restriction - monitor lytes - follow osm - she made about 900 cc of urine so far today and she already drank a liter of water and managed to get a bucked of iced chips - discussed restriction - repeat osm today - monitor lytes and urine output - fluids held yesterday
--- NOTE | 2018-07-29 15:25 | PN ---
Teaching Attending Note Name of Resident: Adarsh Torre ATTENDING PHYSICIAN STATEMENT I saw and evaluated the patient. I reviewed the resident's note and discussed the case with the resident. I agree with the resident's findings and plan as documented. SUBJECTIVE: Patient remained at base line afebrile no new complaints on fluid restriction OBJECTIVE: Vital Signs Period Temp Pulse Resp BP Sys/Uribe Pulse Ox Last 24 Hr 97.4 F-98.7 F 100-121 18-20 114-141/58-63 96 Constitutional: Not in distress comfortable HEENT: MM moist anemia, PERRLA EOMI Cardiovascular: Regular Rate and Rhythm. No: Gallop, Murmur, Rub Respiratory: Yes: CTA Bilaterally. No: Rales, Rhonchi, Wheezes Gastrointestinal: Normal Bowel Sounds, Soft. No: Distention, Tenderness Extremities: Yes: Other (feet wrapped) Integumentary: Yes: Pressure Ulcer CBC, BMP 07/29/18 06:00 07/29/18 06:00 Microbiology 07/21/18 23:00 Decubiti Gram Stain - Final 07/21/18 23:00 Decubiti Wound Culture - Final Morganella Morganii Proteus Mirabilis Vr Ec Faecalis 07/21/18 10:15 Blood - Peripheral Venous Blood Culture - Final NO GROWTH AFTER 5 DAYS INCUBATION 07/21/18 10:20 Blood - Peripheral Venous Blood Culture - Final NO GROWTH AFTER 5 DAYS INCUBATION 07/23/18 12:00 Tissue-Other Gram Stain - Final 07/23/18 12:00 Tissue-Other Tissue Culture - Final Pseudomonas Aeruginosa Vr Ec Faecalis Citrobacter Werkmanii 07/23/18 12:00 Tissue-Other Anaerobic Culture - Final NO ANAEROBES WERE ISOLATED 07/23/18 00:00 Urine - Urine Tejeda Urine Culture - Final Pseudomonas Aeruginosa Current Meds; Active Medications Acetaminophen (Tylenol -) 650 mg PO Q6H PRN PRN Reason: FEVER Last Admin: 07/28/18 15:32 Dose: 650 mg Collagenase (Santyl -) 1 applic TP BID [facility]; Protocol Last Admin: 07/29/18 09:57 Dose: 1 applic Docusate Sodium (Colace -) 200 mg PO DAILY [facility] Last Admin: 07/29/18 09:56 Dose: 200 mg Emollient Ointment (Aquaphor -) 1 applic TP BID [facility] Last Admin: 07/29/18 09:56 Dose: 1 applic Piperacillin Sod/Tazobactam (Sod 3.375 gm/ Dextrose) 50 mls @ 100 mls/hr IVPB Q8H-IV [facility]; Protocol Last Admin: 07/29/18 10:43 Dose: 100 mls/hr Insulin Aspart (Novolog Vial Sliding Scale -) 1 vial SQ ACHS [facility]; Protocol Last Admin: 07/29/18 12:07 Dose: 4 units Insulin Detemir (Levemir Vial) 14 units SQ AM [facility] Last Admin: 07/29/18 06:08 Dose: 14 units Magnesium Oxide (Mag-Ox -) 400 mg PO BID [facility] Last Admin: 07/29/18 09:56 Dose: 400 mg Risperidone (Risperdal -) 0.25 mg PO BID [facility] Last Admin: 07/29/18 09:56 Dose: 0.25 mg ASSESSMENT AND PLAN: 73 yrs old F known since previous Hospitalization , multiple medical Co-morbidities, present with elevated TWBC with Sepsis S/P Sacral Decubitus on IV abx, evaluted by wound care and Nephrology consult; Active Issue; 1. Sepsis due to infected Decubitus ulcer, grew multiple organism on IV Zosyn F/ U ID and Wound care , patient is awaiting to [place] inpatient wound care management. 2. Hypernatremia: Poyuria, Polydypsia, possibility of DI will F/U Nephrology recommendation [facility] in am. 3.0 Chronic anemia Problem List - Problems (1) Sepsis Code(s): A41.9 - SEPSIS, UNSPECIFIED ORGANISM Qualifiers: Sepsis type: Pseudomonas Qualified Code(s): A41.52 - Sepsis due to Pseudomonas (2) Hyperglycemia Code(s): R73.9 - HYPERGLYCEMIA, UNSPECIFIED (3) Acute hypernatremia Code(s): E87.0 - HYPEROSMOLALITY AND HYPERNATREMIA (4) CKD (chronic kidney disease) Code(s): N18.9 - CHRONIC KIDNEY DISEASE, UNSPECIFIED Qualifiers: Chronic kidney disease stage: stage 2 (mild) Qualified Code(s): N18.2 - Chronic kidney disease, stage 2 (mild) (5) Decubitus ulcer of heel, bilateral, stage 3 Code(s): L89.613 - PRESSURE ULCER OF RIGHT HEEL, STAGE 3; L89.623 - PRESSURE ULCER OF LEFT HEEL, STAGE 3 (6) Diabetes Code(s): E11.9 - TYPE 2 DIABETES MELLITUS WITHOUT COMPLICATIONS Qualifiers: Diabetes mellitus type: type 2 Diabetes mellitus laborer marine terminal insulin use: with laborer marine terminal use Diabetes mellitus complication status: with skin complications Diabetes mellitus complication detail: with foot ulcer Qualified Code(s): E11.621 - Type 2 diabetes mellitus with foot ulcer; L97.509 - Non-pressure chronic ulcer of other part of unspecified foot with unspecified severity; Z79.4 - terminal gauger supervisor (current) use of insulin (7) Functional quadriplegia Code(s): R53.2 - FUNCTIONAL QUADRIPLEGIA Problem List - Problem (1) Sepsis Code(s): A41.9 - SEPSIS, UNSPECIFIED ORGANISM Qualifiers: Sepsis type: Pseudomonas Qualified Code(s): A41.52 - Sepsis due to Pseudomonas (2) Hyperglycemia Code(s): R73.9 - HYPERGLYCEMIA, UNSPECIFIED (3) Acute hypernatremia Code(s): E87.0 - HYPEROSMOLALITY AND HYPERNATREMIA (4) CKD (chronic kidney disease) Code(s): N18.9 - CHRONIC KIDNEY DISEASE, UNSPECIFIED Qualifiers: Chronic kidney disease stage: stage 2 (mild) Qualified Code(s): N18.2 - Chronic kidney disease, stage 2 (mild) (5) Decubitus ulcer of heel, bilateral, stage 3 Code(s): L89.613 - PRESSURE ULCER OF RIGHT HEEL, STAGE 3; L89.623 - PRESSURE ULCER OF LEFT HEEL, STAGE 3 (6) Diabetes Code(s): E11.9 - TYPE 2 DIABETES MELLITUS WITHOUT COMPLICATIONS Qualifiers: Diabetes mellitus type: type 2 Diabetes mellitus laborer marine terminal insulin use: with residential use Diabetes mellitus complication status: with skin complications Diabetes mellitus complication detail: with foot ulcer Qualified Code(s): E11.621 - Type 2 diabetes mellitus with foot ulcer; L97.509 - Non-pressure chronic ulcer of other part of unspecified foot with unspecified severity; Z79.4 - terminal gauger supervisor (current) use of insulin (7) Functional quadriplegia Code(s): R53.2 - FUNCTIONAL QUADRIPLEGIA
--- NOTE | 2018-07-29 16:06 | PN ---
Physical Exam: SUBJECTIVE: Patient seen and examined at bedside. No overnight events. No new complaints. Feels better overall. Denies CP,RUIZ, SOB, abdominal pain, nausea or vomiting. OBJECTIVE: Vital Signs Period Temp Pulse Resp BP Sys/Uribe Pulse Ox Last 24 Hr 97.4 F-98.7 F 100-121 18-20 114-141/58-63 96-100 GENERAL: Awake and alert , NAD HEAD: NCAT EYES: Pupils reactive to light, left pupil more dilated than right, no scleral icterus EARS, NOSE, THROAT: oropharynx clear without exudates. dry mucous membranes. NECK: supple without lymphadenopathy or JVD LUNGS: CTA b/l, no crackles or wheezes HEART: Tachycardic, regular rhythm, normal S1 and S2 without murmur ABDOMEN: Soft, nontender to palpation, normoactive bowel sounds EXTREMITIES: 1+ pulses, wounds: right ankle 1cm X 1cm, right post foot 1 cm X 1cm, right heel 10cm X 8cm, left post foot 1cm X 1cm, left heel 8cm X 7cm, NEUROLOGICAL: Cranial nerves II-XII grossly intact. minimal speech, says she does not speak well but can appropriately answer questioning with short responses SKIN: Sacral ulcer bandaged C/D/I Laboratory Results - last 24 hr 07/28/18 07/28/18 07/28/18 16:38 16:45 16:45 WBC RBC Hgb Hct MCV MCH MCHC RDW Plt Count MPV Absolute Neuts (auto) Neutrophils % Lymphocytes % Monocytes % Eosinophils % Basophils % Nucleated RBC % Sodium Potassium Chloride Carbon Dioxide Anion Gap BUN Creatinine Creat Clearance w eGFR POC Glucometer 185 Random Glucose Calcium Total Bilirubin AST ALT Alkaline Phosphatase Total Protein Albumin Urine Color Colorless Urine Appearance Clear Urine pH 7.0 Ur Specific [place] 1.003 L Urine Protein Negative Urine Glucose (UA) Negative Urine Ketones Negative Urine Blood 1+ H Urine Nitrite Positive Urine Bilirubin Negative Urine Urobilinogen Negative Ur Leukocyte Esterase Trace Urine WBC (Auto) 1 Urine RBC (Auto) 2 Urine Bacteria Moderate Urine Osmolality 126 L 07/28/18 07/29/18 07/29/18 22:54 06:00 06:00 WBC 5.3 RBC 2.76 L Hgb 7.7 L Hct 24.9 L MCV 90.3 MCH 28.0 MCHC 31.0 L RDW 18.7 H Plt Count 481 H MPV 7.6 Absolute Neuts (auto) 2.4 Neutrophils % 45.2 D Lymphocytes % 34.9 D Monocytes % 9.3 Eosinophils % 9.8 H Basophils % 0.8 Nucleated RBC % 0 Sodium 149 H Potassium 4.5 Chloride 118 H Carbon Dioxide 25 Anion Gap 6 L BUN 11 Creatinine 1.2 Creat Clearance w eGFR 44.16 POC Glucometer 156 Random Glucose 134 H Calcium 8.4 L Total Bilirubin 0.2 AST 18 ALT 22 Alkaline Phosphatase 106 Total Protein 5.4 L Albumin 1.6 L Urine Color Urine Appearance Urine pH Ur Specific [place] Urine Protein Urine Glucose (UA) Urine Ketones Urine Blood Urine Nitrite Urine Bilirubin Urine Urobilinogen Ur Leukocyte Esterase Urine WBC (Auto) Urine RBC (Auto) Urine Bacteria Urine Osmolality 07/29/18 07/29/18 06:08 11:55 WBC RBC Hgb Hct MCV MCH MCHC RDW Plt Count MPV Absolute Neuts (auto) Neutrophils % Lymphocytes % Monocytes % Eosinophils % Basophils % Nucleated RBC % Sodium Potassium Chloride Carbon Dioxide Anion Gap BUN Creatinine Creat Clearance w eGFR POC Glucometer 154 218 Random Glucose Calcium Total Bilirubin AST ALT Alkaline Phosphatase Total Protein Albumin Urine Color Urine Appearance Urine pH Ur Specific [place] Urine Protein Urine Glucose (UA) Urine Ketones Urine Blood Urine Nitrite Urine Bilirubin Urine Urobilinogen Ur Leukocyte Esterase Urine WBC (Auto) Urine RBC (Auto) Urine Bacteria Urine Osmolality Active Medications Generic Name Dose Route Start Last Admin Trade Name Rajq PRN Reason Stop Dose Admin Acetaminophen 650 mg 07/28/18 12:00 07/28/18 15:32 Tylenol - PO 650 mg Q6H PRN Administration FEVER Collagenase 1 applic 07/24/18 14:36 07/29/18 09:57 Santyl - TP 1 applic BID YOAV Administration Protocol Docusate Sodium 200 mg 07/24/18 10:00 07/29/18 09:56 Colace - PO 200 mg DAILY YOAV Administration Emollient Ointment 1 applic 07/27/18 12:45 07/29/18 09:56 Aquaphor - TP 1 applic BID YOAV Administration Piperacillin Sod/Tazobactam 50 mls @ 100 mls/hr 07/23/18 18:00 07/29/18 10:43 Sod 3.375 gm/ Dextrose IVPB 100 mls/hr Q8H-IV YOAV Administration Protocol Insulin Aspart 1 vial 07/23/18 16:30 12/05/18 12:07 Novolog Vial Sliding Scale - SQ 4 units ACHS YOAV Administration Protocol Insulin Detemir 14 units 07/24/18 07:00 07/29/18 06:08 Levemir Vial SQ 14 units AM YOAV Administration Magnesium Oxide 400 mg 07/28/18 12:30 07/29/18 09:56 Mag-Ox - PO 400 mg BID YOAV Administration Risperidone 0.25 mg 07/23/18 22:00 07/29/18 09:56 Risperdal - PO 0.25 mg BID YOAV Administration ASSESSMENT/PLAN: 73 yo female with PMH of HTN, HLD, IDDM, recent DVT on Eliquis, presented from [facility] for abnormal labs and worsening sacral and heel ulcers. Problem List - Problems (1) Sepsis Assessment/Plan: most likely 2/2 wound infection * POD #7 s/p debridement. * wound culture shows Pseudomonas - On Vanco/Zosyn ; ID on board. * IVF with D5 NS * May require extended antibiotics * will speak with complex case manager about [place] for extended wound care. (2) Diabetes Assessment/Plan: * ADA diet. * BGM ACHS * ISS ACHS * Levamir 14 units in AM (3) Recurrent deep vein thrombosis (DVT) Assessment/Plan: on eliquis * held for procedure (4) Transaminitis Assessment/Plan: present on last admission * Abdominal US shows chololithiasis with midly dialated CBD, and mild hepatomegally * refuses CCY * will monitor Visit type - Emergency Visit Emergency Visit: Yes ED Registration Date: 07/21/18 Care time: The patient presented to the Emergency Department on the above date and was hospitalized for further evaluation of their emergent condition. - New Patient This patient is new to me today: No - Critical Care Critical Care patient: No
[2018-07-30] MEDS ORDERED: PIPERACILLIN/TAZOBACTAM 3.375 GM VIAL IVPB ONE ×2 (00:15→09:38)
[2018-07-30] MEDS ORDERED: DEXTROSE 5%-WATER - 50 ML IVPB ONE ×2 (00:15→09:38)
[2018-07-30] MEDS: PIPERACILLIN/TAZOB 3.375 GM 3.375 GM in DEXTROSE 5%-WATER - 50 ML IVPB SCH ×2 (01:15→10:36)
[2018-07-30] MEDS: INSULIN SLIDING SCALE (NOVOLOG) 1 VIAL SQ SCH ×4 (06:11→21:14)
[2018-07-30] MEDS: INSULIN (LEVEMIR) 100 UNITS/ML UNITS SQ SCH (06:31)
[2018-07-30 07:43] LABS: ALBUMIN 1.8 g/dl (3.4-5.0); ALK PHOS 106 U/L (45-117); ANION GAP 7 MMOL/L (8-16); BILIRUBIN,TOTAL 0.2 mg/dL (0.2-1); BLOOD UREA NITROGEN 15 mg/dL (7-18); CALCIUM 9.2 mg/dL (8.5-10.1); CHLORIDE 120 mmol/L (98-107); CO2 23 mmol/L (21-32); CREATININE 1.5 mg/dL (0.55-1.3); GLUCOSE,RANDOM 134 mg/dL (74-106); POTASSIUM 4.7 mmol/L (3.5-5.1); SGOT/AST 15 U/L (15-37); SGPT/ALT 20 U/L (13-61); SODIUM 151 mmol/L (136-145); TOT PROT 5.8 g/dl (6.4-8.2)
--- NOTE | 2018-07-30 09:56 | PN ---
Teaching Attending Note Name of Resident: Adarsh Torre ATTENDING PHYSICIAN STATEMENT I saw and evaluated the patient. I reviewed the resident's note and discussed the case with the resident. I agree with the resident's findings and plan as documented. SUBLECTIVE: No new complaints OBJECTIVE: Vital Signs Period Temp Pulse Resp BP Sys/Uribe Pulse Ox Last 24 Hr 97.4 F-99.1 F 108-135 18-20 123-147/59-83 96-100 Constitutional: Not in distress comfortable HEENT: MM moist anemia, PERRLA EOMI Cardiovascular: Regular Rate and Rhythm. No: Gallop, Murmur, Rub Respiratory: Yes: CTA Bilaterally. No: Rales, Rhonchi, Wheezes Gastrointestinal: Normal Bowel Sounds, Soft. No: Distention, Tenderness Extremities: Yes: Other (feet wrapped) Integumentary: Yes: Pressure Ulcer CBC, BMP 07/29/18 06:00 07/30/18 06:00 Active Medications Active Medications Acetaminophen (Tylenol -) 650 mg PO Q6H PRN PRN Reason: FEVER Last Admin: 07/28/18 15:32 Dose: 650 mg Collagenase (Santyl -) 1 applic TP BID YOAV; Protocol Last Admin: 07/30/18 10:36 Dose: 1 applic Docusate Sodium (Colace -) 200 mg PO DAILY [facility] Last Admin: 07/30/18 10:37 Dose: 200 mg Emollient Ointment (Aquaphor -) 1 applic TP BID YOAV Last Admin: 07/30/18 10:35 Dose: 1 applic Hydrochlorothiazide (Hctz -) 25 mg PO DAILY [facility] Aztreonam 1 gm/ Dextrose 50 mls @ 100 mls/hr IVPB Q8H-IV YOAV; Protocol Insulin Aspart (Novolog Vial Sliding Scale -) 1 vial SQ ACHS YOAV; Protocol Last Admin: 07/30/18 12:07 Dose: 4 units Insulin Detemir (Levemir Vial) 14 units SQ AM [facility] Last Admin: 07/30/18 06:31 Dose: 14 units Magnesium Oxide (Mag-Ox -) 400 mg PO BID YOAV Last Admin: 07/30/18 10:37 Dose: 400 mg Risperidone (Risperdal -) 0.25 mg PO BID [facility] Last Admin: 07/30/18 10:37 Dose: 0.25 mg ASSESSMENT AND PLAN: 73 yrs old F known since previous Hospitalization , multiple medical Co-morbidities, present with elevated TWBC with Sepsis S/P Sacral Decubitus on IV abx, evaluated by wound care and Nephrology consult; Active Issue; 1. Sepsis due to infected Decubitus ulcer, grew multiple organism on IV Zosyn F/ U ID and Wound care , patient is awaiting to [place] inpatient wound care management. 2. Hypernatremia: Poyuria, Polydypsia, possibility of DI during previous hospitalization failed Desmopressin trial and NSAID trial most likely Nephrogenic UOSM max is 188 despite water restriction; Plan Low salt Diet switch abx to D5 based solution HCTZ 25 mg [place] water F/U BMP in am 3. Chronic anemia Rest cont current management. Problem List - Problems (1) Sepsis Code(s): A41.9 - SEPSIS, UNSPECIFIED ORGANISM Qualifiers: Sepsis type: Pseudomonas Qualified Code(s): A41.52 - Sepsis due to Pseudomonas (2) Hyperglycemia Code(s): R73.9 - HYPERGLYCEMIA, UNSPECIFIED (3) Acute hypernatremia Code(s): E87.0 - HYPEROSMOLALITY AND HYPERNATREMIA (4) CKD (chronic kidney disease) Code(s): N18.9 - CHRONIC KIDNEY DISEASE, UNSPECIFIED Qualifiers: Chronic kidney disease stage: stage 2 (mild) Qualified Code(s): N18.2 - Chronic kidney disease, stage 2 (mild) (5) Decubitus ulcer of heel, bilateral, stage 3 Code(s): L89.613 - PRESSURE ULCER OF RIGHT HEEL, STAGE 3; L89.623 - PRESSURE ULCER OF LEFT HEEL, STAGE 3 (6) Diabetes Code(s): E11.9 - TYPE 2 DIABETES MELLITUS WITHOUT COMPLICATIONS Qualifiers: Diabetes mellitus type: type 2 Diabetes mellitus long-term insulin use: with long-term use Diabetes mellitus complication status: with skin complications Diabetes mellitus complication detail: with foot ulcer Qualified Code(s): E11.621 - Type 2 diabetes mellitus with foot ulcer; L97.509 - Non-pressure chronic ulcer of other part of unspecified foot with unspecified severity; Z79.4 - intermodal customer service (current) use of insulin (7) Functional quadriplegia Code(s): R53.2 - FUNCTIONAL QUADRIPLEGIA
[2018-07-30] MEDS: MINERAL OIL/PET HY-PHL TOPICAL OINTMENT 454 GM JAR TP SCH ×2 (10:35→21:14)
[2018-07-30] MEDS: COLLAGENASE CLOSTRIDIUM HIST. 30 GRAMS TUBE TP SCH ×2 (10:36→21:14)
[2018-07-30] MEDS: DOCUSATE SODIUM 100 MG CAPSULE (FP) PO SCH (10:37)
[2018-07-30] MEDS: risperiDONE 0.25 MG TABLET (FP) PO SCH ×2 (10:37→21:13)
[2018-07-30] MEDS: MAGNESIUM OXIDE 400 MG TABLET (FP) PO SCH ×2 (10:37→21:13)
--- NOTE | 2018-07-30 10:50 | PN ---
Progress Note, Physician History of Present Illness: patient stable no new issues wound care being done - Current Medication List Current Medications: Active Medications Acetaminophen (Tylenol -) 650 mg PO Q6H PRN PRN Reason: FEVER Last Admin: 07/28/18 15:32 Dose: 650 mg Collagenase (Santyl -) 1 applic TP BID [facility]S [facility]CLUDE 234 BEDS AT THE [facility]; Protocol Last Admin: 07/30/18 10:36 Dose: 1 applic Docusate Sodium (Colace -) 200 mg PO DAILY COUNTS INCLUDE 234 BEDS AT THE [facility] Last Admin: 07/30/18 10:37 Dose: 200 mg Emollient Ointment (Aquaphor -) 1 applic TP BID COUNTS INCLUDE 234 BEDS AT THE [facility] Last Admin: 07/30/18 10:35 Dose: 1 applic Piperacillin Sod/Tazobactam (Sod 3.375 gm/ Dextrose) 50 mls @ 100 mls/hr IVPB Q8H-IV COUNTS INCLUDE 234 BEDS AT THE [facility]; Protocol Last Admin: 07/30/18 10:36 Dose: 100 mls/hr Insulin Aspart (Novolog Vial Sliding Scale -) 1 vial SQ ACHS COUNTS INCLUDE 234 BEDS AT THE [facility]; Protocol Last Admin: 07/30/18 06:11 Dose: Not Given Insulin Detemir (Levemir Vial) 14 units SQ AM COUNTS INCLUDE 234 BEDS AT THE [facility] Last Admin: 07/30/18 06:31 Dose: 14 units Magnesium Oxide (Mag-Ox -) 400 mg PO BID COUNTS INCLUDE 234 BEDS AT THE [facility] Last Admin: 07/30/18 10:37 Dose: 400 mg Risperidone (Risperdal -) 0.25 mg PO BID COUNTS INCLUDE 234 BEDS AT THE [facility] Last Admin: 07/30/18 10:37 Dose: 0.25 mg - Objective Vital Signs: Vital Signs Temperature 99.1 F 07/30/18 05:44 Pulse Rate 119 H 07/30/18 05:44 Respiratory Rate 18 07/30/18 05:44 Blood Pressure 123/59 L 07/30/18 05:44 O2 Sat by Pulse Oximetry (%) 100 07/29/18 21:00 Constitutional: Yes: No Distress, Calm Cardiovascular: Yes: Regular Rate and Rhythm Respiratory: Yes: Regular, CTA Bilaterally Gastrointestinal: Yes: Normal Bowel Sounds, Soft Musculoskeletal: Yes: Other Extremities: Yes: Other Wound/Incision: Yes: Dressing Dry and Intact Neurological: Yes: Alert, Oriented Psychiatric: Yes: Alert, Oriented Labs: CBC, BMP 07/29/18 06:00 07/30/18 06:00 INR, PTT INR 1.11 (0.83-1.09) H 07/21/18 20:10 Assessment/Plan ASSESSMENT/PLAN: 73 yo female with PMH of HTN, HLD, IDDM, recent DVT on Eliquis, presented from [facility] for abnormal labs and worsening sacral and heel ulcers Sepsis IDDM DVT infected wound sacral decubitus uti plan continue abx wound care rest as per the team will d/w the team patient being txed for wound care
[2018-07-30] MEDS ORDERED: INSULIN (NOVOLOG) ASPART 100 UNITS/ML 10ML VIAL ONE ×2 (12:04→19:23)
--- NOTE | 2018-07-30 15:51 | EKG ---
Test Reason : Blood Pressure : / mmHG Vent. Rate : 118 BPM Atrial Rate : 118 BPM P-R Int : 144 ms QRS Dur : 070 ms QT Int : 322 ms P-R-T Axes : 066 010 074 degrees QTc Int : 451 ms SINUS TACHYCARDIA CANNOT RULE OUT ANTERIOR INFARCT , AGE UNDETERMINED ABNORMAL ECG WHEN COMPARED WITH ECG OF 21-JUL-2018 19:51, NO SIGNIFICANT CHANGE WAS FOUND Confirmed by YUE MALIK, PRESLEY ([id number]) on 07/30/2018 3:51:46 PM Referred By: Brown MERCHANT Confirmed By:PRESLEY TURNER MD
--- NOTE | 2018-07-30 16:02 | PN ---
Progress Note, Physician History of Present Illness: Pt seen and examined at bedside. She is awake and alert. - Current Medication List Current Medications: Active Medications Acetaminophen (Tylenol -) 650 mg PO Q6H PRN PRN Reason: FEVER Last Admin: 07/28/18 15:32 Dose: 650 mg Collagenase (Santyl -) 1 applic TP BID [facility]; Protocol Last Admin: 07/30/18 10:36 Dose: 1 applic Docusate Sodium (Colace -) 200 mg PO DAILY [facility] Last Admin: 07/30/18 10:37 Dose: 200 mg Emollient Ointment (Aquaphor -) 1 applic TP BID [facility] Last Admin: 07/30/18 10:35 Dose: 1 applic Hydrochlorothiazide (Hctz -) 25 mg PO DAILY [facility] Aztreonam 1 gm/ Dextrose 50 mls @ 100 mls/hr IVPB Q8H-IV [facility]; Protocol Insulin Aspart (Novolog Vial Sliding Scale -) 1 vial SQ ACHS [facility]; Protocol Last Admin: 07/30/18 12:07 Dose: 4 units Insulin Detemir (Levemir Vial) 14 units SQ AM [facility] Last Admin: 07/30/18 06:31 Dose: 14 units Magnesium Oxide (Mag-Ox -) 400 mg PO BID [facility] Last Admin: 07/30/18 10:37 Dose: 400 mg Risperidone (Risperdal -) 0.25 mg PO BID [facility] Last Admin: 07/30/18 10:37 Dose: 0.25 mg - Objective Vital Signs: Vital Signs Temperature 97.4 F L 07/30/18 14:42 Pulse Rate 135 H 07/30/18 14:42 Respiratory Rate 20 07/30/18 14:42 Blood Pressure 135/66 07/30/18 14:42 O2 Sat by Pulse Oximetry (%) 96 07/30/18 09:00 Constitutional: Yes: Calm Eyes: Yes: Conjunctiva Clear HENT: Yes: Atraumatic Cardiovascular: Yes: S1, S2 Respiratory: Yes: CTA Bilaterally Gastrointestinal: Yes: Soft Genitourinary: Yes: [place] Present Musculoskeletal: Yes: Muscle Weakness Edema: No Neurological: Yes: Oriented Psychiatric: Yes: Oriented Labs: CBC, BMP 07/29/18 06:00 07/30/18 06:00 INR, PTT INR 1.11 (0.83-1.09) H 07/21/18 20:10 Problem List - Problems (1) Polyuria Code(s): R35.8 - OTHER POLYURIA (2) Bipolar 1 disorder Code(s): F31.9 - BIPOLAR DISORDER, UNSPECIFIED Assessment/Plan Current Medications Generic Name Dose Route Start Last Admin Trade Name Ariel PRN Reason Stop Dose Admin Acetaminophen 650 mg 07/28/18 12:00 07/28/18 15:32 Tylenol - PO 650 mg Q6H PRN Administration FEVER Collagenase 1 applic 07/24/18 14:36 07/30/18 10:36 Santyl - TP 1 applic BID YOAV Administration Protocol Docusate Sodium 200 mg 07/24/18 10:00 07/30/18 10:37 Colace - PO 200 mg DAILY YOAV Administration Emollient Ointment 1 applic 07/27/18 12:45 07/30/18 10:35 Aquaphor - TP 1 applic BID YOAV Administration Hydrochlorothiazide 25 mg 07/30/18 13:45 Hctz - PO DAILY YO[facility] Aztreonam 1 gm/ Dextrose 50 mls @ 100 mls/hr 07/30/18 18:00 IVPB Q8H-IV YOAV Protocol Insulin Aspart 1 vial 07/23/18 16:30 07/30/18 12:07 Novolog Vial Sliding Scale - SQ 4 units ACHS YOAV Administration Protocol Insulin Detemir 14 units 07/24/18 07:00 07/30/18 06:31 Levemir Vial SQ 14 units AM YOAV Administration Magnesium Oxide 400 mg 07/28/18 12:30 07/30/18 10:37 Mag-Ox - PO 400 mg BID YOAV Administration Risperidone 0.25 mg 07/23/18 22:00 07/30/18 10:37 Risperdal - PO 0.25 mg BID YOAV Administration Impression 1. Hypernatremia 2. bipolar 3. DM 4. HTN 5. DVT 6. polydipsia Plan - can liberate amount of fluid pt is drinking as sodium is rising - urine output improved with restriction however urine osm was low - follow up urine osm and urine sodium, ordered for today - cont to monitor renal function and volume status - repeat labs in am - will need to monitor renal function and sodium in [place] if discharged today - discussed with medical team
--- NOTE | 2018-07-30 16:51 | PN ---
Physical Exam: SUBJECTIVE: Patient seen and examined at bedside. No overnight events. No new complaints. Feels better overall. Denies CP,RUIZ, SOB, abdominal pain, nausea or vomiting. OBJECTIVE: Vital Signs Period Temp Pulse Resp BP Sys/Uribe Pulse Ox Last 24 Hr 97.4 F-99.1 F 108-135 18-20 123-147/59-83 96-100 GENERAL: Awake and alert , NAD HEAD: NCAT EYES: Pupils reactive to light, left pupil more dilated than right, no scleral icterus EARS, NOSE, THROAT: oropharynx clear without exudates. dry mucous membranes. NECK: supple without lymphadenopathy or JVD LUNGS: CTA b/l, no crackles or wheezes HEART: Tachycardic, regular rhythm, normal S1 and S2 without murmur ABDOMEN: Soft, nontender to palpation, normoactive bowel sounds EXTREMITIES: 1+ pulses, wounds: right ankle 1cm X 1cm, right post foot 1 cm X 1cm, right heel 10cm X 8cm, left post foot 1cm X 1cm, left heel 8cm X 7cm, NEUROLOGICAL: Cranial nerves II-XII grossly intact. minimal speech, says she does not speak well but can appropriately answer questioning with short responses SKIN: Sacral ulcer bandaged C/D/I Laboratory Results - last 24 hr 07/29/18 07/29/18 07/29/18 10:00 16:57 22:54 Sodium Potassium Chloride Carbon Dioxide Anion Gap BUN Creatinine Creat Clearance w eGFR POC Glucometer 76 183 Random Glucose Calcium Total Bilirubin AST ALT Alkaline Phosphatase Total Protein Albumin Urine Osmolality 188 L 07/30/18 07/30/18 07/30/18 05:12 06:00 11:56 Sodium 151 H Potassium 4.7 Chloride 120 H Carbon Dioxide 23 Anion Gap 7 L BUN 15 Creatinine 1.5 H Creat Clearance w eGFR 34.13 POC Glucometer 148 217 Random Glucose 134 H Calcium 9.2 Total Bilirubin 0.2 AST 15 ALT 20 Alkaline Phosphatase 106 Total Protein 5.8 L Albumin 1.8 L Urine Osmolality 07/30/18 16:17 Sodium Potassium Chloride Carbon Dioxide Anion Gap BUN Creatinine Creat Clearance w eGFR POC Glucometer 125 Random Glucose Calcium Total Bilirubin AST ALT Alkaline Phosphatase Total Protein Albumin Urine Osmolality Active Medications Generic Name Dose Route Start Last Admin Trade Name Freq PRN Reason Stop Dose Admin Acetaminophen 650 mg 07/28/18 12:00 07/28/18 15:32 Tylenol - PO 650 mg Q6H PRN Administration FEVER Collagenase 1 applic 07/24/18 14:36 07/30/18 10:36 Santyl - TP 1 applic BID YOAV Administration Protocol Docusate Sodium 200 mg 07/24/18 10:00 07/30/18 10:37 Colace - PO 200 mg DAILY YOAV Administration Emollient Ointment 1 applic 07/27/18 12:45 07/30/18 10:35 Aquaphor - TP 1 applic BID YOAV Administration Hydrochlorothiazide 25 mg 07/30/18 13:45 Hctz - PO DAILY [facility] Aztreonam 1 gm/ Dextrose 50 mls @ 100 mls/hr 07/30/18 18:00 IVPB Q8H-IV YOAV Protocol Insulin Aspart 1 vial 07/23/18 16:30 07/30/18 12:07 Novolog Vial Sliding Scale - SQ 4 units ACHS YOAV Administration Protocol Insulin Detemir 14 units 07/24/18 07:00 07/30/18 06:31 Levemir Vial SQ 14 units AM YOAV Administration Magnesium Oxide 400 mg 07/28/18 12:30 07/30/18 10:37 Mag-Ox - PO 400 mg BID YOAV Administration Risperidone 0.25 mg 07/23/18 22:00 07/30/18 10:37 Risperdal - PO 0.25 mg BID YOAV Administration ASSESSMENT/PLAN: Problem List - Problems (1) Sepsis Assessment/Plan: most likely 2/2 wound infection * POD #8 s/p debridement. * wound culture shows Pseudomonas - On Vanco/Zosyn ; ID on board. * IVF with D5 NS * May require extended antibiotics * will speak with piano case maker about [place] for extended wound care tomorrow. (2) Hypernatremia Assessment/Plan: * Will start HCTZ 25mg PO * liberate amount of fluid intake. * repeat Urine Osm and Urine Na+ * Will continue to monitor renal function and volume status. (3) Diabetes Assessment/Plan: * ADA diet. * BGM ACHS * ISS ACHS * Levamir 14 units in AM Qualifiers: Diabetes mellitus type: type 2 Diabetes mellitus residential insulin use: with residential use Diabetes mellitus complication status: with skin complications Diabetes mellitus complication detail: with foot ulcer Qualified Code(s): E11.621 - Type 2 diabetes mellitus with foot ulcer; L97.509 - Non-pressure chronic ulcer of other part of unspecified foot with unspecified severity; Z79.4 - oysterman (current) use of insulin (4) Recurrent deep vein thrombosis (DVT) Assessment/Plan: on eliquis * held for procedure (5) Transaminitis Assessment/Plan: present on last admission * Abdominal US shows chololithiasis with midly dialated CBD, and mild hepatomegally * refuses CCY * will monitor Visit type - Emergency Visit Emergency Visit: Yes ED Registration Date: 07/21/18 Care time: The patient presented to the Emergency Department on the above date and was hospitalized for further evaluation of their emergent condition. - New Patient This patient is new to me today: No - Critical Care Critical Care patient: No
[2018-07-30] MEDS: AZTREONAM 1 GM in DEXTROSE 5%-WATER - 50 ML IVPB SCH (18:16)
[2018-07-30] MEDS: HYDROCHLOROTHIAZIDE 25 MG TABLET (FP) PO SCH (18:16)
[2018-07-30] MEDS ORDERED: PT OWN MED DRAWER 7, Y5N ONE (19:25)
[2018-07-30 19:35] LABS: BASO % 0.7 % (0-2.0); EOS % 8.6 % (0-4.5); HEMATOCRIT 28.1 % (32.4-45.2); LYMPH % 28.7 % (8-40); MCH 29.3 pg (25.7-33.7); MEAN CELL VOLUME 91.8 fl (80-96); MEAN PLT VOLUME 7.8 fl (7.5-11.1); MONO % 9.7 % (3.8-10.2); NEUT % 52.3 % (42.8-82.8); PLATELET COUNT 567 K/MM3 (134-434); RBC 3.06 M/mm3 (3.60-5.2); RDW 20.1 % (11.6-15.6); WHITE BLOOD COUNT 5.7 K/mm3 (4.0-10.0)
[2018-07-31] MEDS ORDERED: PT OWN MED DRAWER 7, Y5N ONE (00:34)
[2018-07-31] MEDS: AZTREONAM 1 GM in DEXTROSE 5%-WATER - 50 ML IVPB SCH ×2 (01:46→09:52)
[2018-07-31] MEDS: INSULIN (LEVEMIR) 100 UNITS/ML UNITS SQ SCH (06:44)
[2018-07-31] MEDS: INSULIN SLIDING SCALE (NOVOLOG) 1 VIAL SQ SCH ×2 (06:59→11:42)
[2018-07-31 08:08] LABS: ALBUMIN 1.8 g/dl (3.4-5.0); ALK PHOS 99 U/L (45-117); ANION GAP 7 MMOL/L (8-16); BILIRUBIN,TOTAL 0.2 mg/dL (0.2-1); BLOOD UREA NITROGEN 18 mg/dL (7-18); CHLORIDE 113 mmol/L (98-107); CO2 23 mmol/L (21-32); CREATININE 1.3 mg/dL (0.55-1.3); GLUCOSE,RANDOM 83 mg/dL (74-106); POTASSIUM 4.5 mmol/L (3.5-5.1); SGOT/AST 21 U/L (15-37); SGPT/ALT 23 U/L (13-61); SODIUM 143 mmol/L (136-145); TOT PROT 5.9 g/dl (6.4-8.2)
[2018-07-31 09:40] LABS: CALCIUM 8.8 mg/dL (8.5-10.1)
[2018-07-31] MEDS: risperiDONE 0.25 MG TABLET (FP) PO SCH (09:53)
[2018-07-31] MEDS: DOCUSATE SODIUM 100 MG CAPSULE (FP) PO SCH (09:53)
[2018-07-31] MEDS: MAGNESIUM OXIDE 400 MG TABLET (FP) PO SCH (09:53)
[2018-07-31] MEDS: COLLAGENASE CLOSTRIDIUM HIST. 30 GRAMS TUBE TP SCH (09:53)
[2018-07-31] MEDS: HYDROCHLOROTHIAZIDE 25 MG TABLET (FP) PO SCH (09:53)
[2018-07-31] MEDS: MINERAL OIL/PET HY-PHL TOPICAL OINTMENT 454 GM JAR TP SCH (11:14)
--- NOTE | 2018-07-31 12:34 | PN ---
Teaching Attending Note Name of Resident: Adarsh Torre ATTENDING PHYSICIAN STATEMENT I saw and evaluated the patient. I reviewed the resident's note and discussed the case with the resident. I agree with the resident's findings and plan as documented. SUBLECTIVE: No new complaints OBJECTIVE: Vital Signs Period Temp Pulse Resp BP Sys/Uribe Pulse Ox Last 24 Hr 97.4 F-99.1 F 108-135 18-20 123-147/59-83 96-100 Constitutional: Not in distress comfortable HEENT: MM moist anemia, PERRLA EOMI Cardiovascular: Regular Rate and Rhythm. No: Gallop, Murmur, Rub Respiratory: Yes: CTA Bilaterally. No: Rales, Rhonchi, Wheezes Gastrointestinal: Normal Bowel Sounds, Soft. No: Distention, Tenderness Extremities: Yes: Other (feet wrapped) Integumentary: Yes: Pressure Ulcer CBC, BMP 07/29/18 06:00 07/30/18 06:00 Active Medications Active Medications Acetaminophen (Tylenol -) 650 mg PO Q6H PRN PRN Reason: FEVER Last Admin: 07/28/18 15:32 Dose: 650 mg Collagenase (Santyl -) 1 applic TP BID [facility]; Protocol Last Admin: 07/30/18 10:36 Dose: 1 applic Docusate Sodium (Colace -) 200 mg PO DAILY [facility] Last Admin: 07/30/18 10:37 Dose: 200 mg Emollient Ointment (Aquaphor -) 1 applic TP BID [facility] Last Admin: 07/30/18 10:35 Dose: 1 applic Hydrochlorothiazide (Hctz -) 25 mg PO DAILY [facility] Aztreonam 1 gm/ Dextrose 50 mls @ 100 mls/hr IVPB Q8H-IV [facility]; Protocol Insulin Aspart (Novolog Vial Sliding Scale -) 1 vial SQ ACHS [facility]; Protocol Last Admin: 07/30/18 12:07 Dose: 4 units Insulin Detemir (Levemir Vial) 14 units SQ AM [facility] Last Admin: 07/30/18 06:31 Dose: 14 units Magnesium Oxide (Mag-Ox -) 400 mg PO BID [facility] Last Admin: 07/30/18 10:37 Dose: 400 mg Risperidone (Risperdal -) 0.25 mg PO BID [facility] Last Admin: 07/30/18 10:37 Dose: 0.25 mg ASSESSMENT AND PLAN: 73 yrs old F known since previous Hospitalization , multiple medical Co-morbidities, present with elevated TWBC with Sepsis S/P Sacral Decubitus on IV abx, evaluated by wound care and Nephrology consult; Active Issue; 1. Sepsis due to infected Decubitus ulcer, grew multiple organism on IV Zosyn F/ U ID and Wound care , patient is awaiting to [place] inpatient wound care management. 2. Hypernatremia: Poyuria, Polydypsia, possibility of DI during previous hospitalization failed Desmopressin trial and NSAID trial most likely Nephrogenic UOSM max is 188 despite water restriction; Plan Low salt Diet switch abx to D5 based solution HCTZ 25 mg [place] water F/U BMP in am 3. Chronic anemia Rest cont current management. Problem List - Problems (1) Sepsis Code(s): A41.9 - SEPSIS, UNSPECIFIED ORGANISM Qualifiers: Qualified Code(s): A41.52 - Sepsis due to Pseudomonas (2) Hyperglycemia Code(s): R73.9 - HYPERGLYCEMIA, UNSPECIFIED (3) Acute hypernatremia Code(s): E87.0 - HYPEROSMOLALITY AND HYPERNATREMIA (4) CKD (chronic kidney disease) Code(s): N18.9 - CHRONIC KIDNEY DISEASE, UNSPECIFIED Qualifiers: Qualified Code(s): N18.2 - Chronic kidney disease, stage 2 (mild) (5) Decubitus ulcer of heel, bilateral, stage 3 Code(s): L89.613 - PRESSURE ULCER OF RIGHT HEEL, STAGE 3; L89.623 - PRESSURE ULCER OF LEFT HEEL, STAGE 3 (6) Diabetes Code(s): E11.9 - TYPE 2 DIABETES MELLITUS WITHOUT COMPLICATIONS Qualifiers: Qualified Code(s): E11.621 - Type 2 diabetes mellitus with foot ulcer; L97.509 - Non-pressure chronic ulcer of other part of unspecified foot with unspecified severity; Z79.4 - detention (current) use of insulin (7) Functional quadriplegia Code(s): R53.2 - FUNCTIONAL QUADRIPLEGIA
[2018-07-31] MEDS ORDERED: ALPRAZolam 0.25 MG TABLET PO ONE (12:36)
--- NOTE | 2018-07-31 12:36 | DS ---
Physical Exam: SUBJECTIVE: Patient seen and examined at bedside. No overnight events. No new complaints. Pain is well controlled. She states she feels ok to go today. Denies CP,RUIZ, SOB, abdominal pain, nausea or vomiting. OBJECTIVE: Vital Signs Period Temp Pulse Resp BP Sys/Uribe Pulse Ox Last 24 Hr 97.4 F-98.8 F 110-135 20-20 115-145/65-78 96-96 PHYSICAL EXAM GENERAL: Awake and alert , NAD HEAD: NCAT EYES: Pupils reactive to light, left pupil more dilated than right, no scleral icterus EARS, NOSE, THROAT: oropharynx clear without exudates. dry mucous membranes. NECK: supple without lymphadenopathy or JVD LUNGS: CTA b/l, no crackles or wheezes HEART: Tachycardic, regular rhythm, normal S1 and S2 without murmur ABDOMEN: Soft, nontender to palpation, normoactive bowel sounds EXTREMITIES: 1+ pulses, wounds: right ankle 1cm X 1cm, right post foot 1 cm X 1cm, right heel 10cm X 8cm, left post foot 1cm X 1cm, left heel 8cm X 7cm, NEUROLOGICAL: Cranial nerves II-XII grossly intact. minimal speech, says she does not speak well but can appropriately answer questioning with short responses SKIN: Sacral ulcer bandaged C/D/I LABS Laboratory Results - last 24 hr 07/30/18 07/30/18 07/30/18 16:17 17:45 17:45 WBC RBC Hgb Hct MCV MCH MCHC RDW Plt Count MPV Absolute Neuts (auto) Neutrophils % Lymphocytes % Monocytes % Eosinophils % Basophils % Nucleated RBC % Sodium Potassium Chloride Carbon Dioxide Anion Gap BUN Creatinine Creat Clearance w eGFR POC Glucometer 125 Random Glucose Serum Osmolality Calcium Total Bilirubin AST ALT Alkaline Phosphatase Total Protein Albumin Urine Osmolality 211 L Ur Random Sodium 61 07/30/18 07/30/18 07/31/18 18:30 21:05 05:51 WBC 5.7 RBC 3.06 L Hgb 9.0 L Hct 28.1 L MCV 91.8 MCH 29.3 MCHC 32.0 RDW 20.1 H Plt Count 567 H MPV 7.8 Absolute Neuts (auto) 3.0 Neutrophils % 52.3 Lymphocytes % 28.7 Monocytes % 9.7 Eosinophils % 8.6 H Basophils % 0.7 Nucleated RBC % 0 Sodium Potassium Chloride Carbon Dioxide Anion Gap BUN Creatinine Creat Clearance w eGFR POC Glucometer 199 92 Random Glucose Serum Osmolality Calcium Total Bilirubin AST ALT Alkaline Phosphatase Total Protein Albumin Urine Osmolality Ur Random Sodium 07/31/18 07/31/18 07/31/18 06:00 06:00 11:20 WBC RBC Hgb Hct MCV MCH MCHC RDW Plt Count MPV Absolute Neuts (auto) Neutrophils % Lymphocytes % Monocytes % Eosinophils % Basophils % Nucleated RBC % Sodium 143 Potassium 4.5 Chloride 113 H Carbon Dioxide 23 Anion Gap 7 L BUN 18 Creatinine 1.3 Creat Clearance w eGFR 40.26 POC Glucometer 243 Random Glucose 83 Serum Osmolality 304 Calcium 8.8 Total Bilirubin 0.2 AST 21 ALT 23 Alkaline Phosphatase 99 Total Protein 5.9 L Albumin 1.8 L Urine Osmolality Ur Random Sodium Microbiology 07/21/18 23:00 Decubiti Gram Stain - Final 07/21/18 23:00 Decubiti Wound Culture - Final Morganella Morganii Proteus Mirabilis Vr Ec Faecalis 07/21/18 10:15 Blood - Peripheral Venous Blood Culture - Final NO GROWTH AFTER 5 DAYS INCUBATION 07/21/18 10:20 Blood - Peripheral Venous Blood Culture - Final NO GROWTH AFTER 5 DAYS INCUBATION 07/23/18 12:00 Tissue-Other Gram Stain - Final 07/23/18 12:00 Tissue-Other Tissue Culture - Final Pseudomonas Aeruginosa Vr Ec Faecalis Citrobacter Werkmanii 07/23/18 12:00 Tissue-Other Anaerobic Culture - Final NO ANAEROBES WERE ISOLATED 07/23/18 00:00 Urine - Urine [place] Urine Culture - Final Pseudomonas Aeruginosa HOSPITAL COURSE: 73 yo female with PMH of HTN, HLD, IDDM, recent DVT on Eliquis, presented from [facility] for abnormal labs and worsening sacral and heel ulcers. She was found to be septic secondary to sacral wound infection. Blood, Urine and wound cultures were sent and she was started on broad spectrum antibiotics. ID and Vascular consulted. Vascular took patient to OR and excisional debridement right buttocks ulcer - skin, subcutaneous tissue, muscle. Tolerated the procedure well and cultures were sent. As cultures and sensitivities returned abx coverage was adjusted accordingly. Patient clinically improved. She will be discharged with 7 day course of oral ampicillin and 3 day course of Cefepime as per ID recommendation. During the admission patient was again noticed to be hypernatremic. THis is a chronic issue for her. Water restriction test ( she failed to concentrate urine) as well as desmopressin response had been done. 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 We advise a strict 2L water restriction and repeat BMP in one week to ensure normal sodium concentration. RUQ US was done as well for elevated transaminases and showed dialated CBD , however she refuses any surgical intervention at this time. Diabetes was managed with ISS.She should follow up with Vascular surgeon in one to two weeks as well as her primary doctor in one week. Patient is stable for discharge to [place] for extended wound care. Date of Admission:07/21/18 Date of Discharge: 07/31/18 Minutes to complete discharge: 42 Discharge Summary Reason For Visit: LOCAL INFECTION OF WOUND, HYPERGLYCEMIA Current Active Problems Hyperglycemia (Acute) Lactic acidosis (Acute) Polyuria (Acute) Recurrent deep vein thrombosis (DVT) (Acute) Wound infection (Acute) Condition: Stable - Instructions Diet, Activity, Other Instructions: You have been seen and treated for sepsis secondary to ulcer infection and high sodium in blood. You are gong to be transferred to [place] for continued wound care. You will be sent with new prescriptions outlined below. You can resume all other medications as previously prescribed. Increase your activity as tolerated. Resume a heart healthy low salt diabetic diet. You should limit your water intake to 2L daily. If you develop increase pain, fever or chills please return to ER. NEW MEDS: HCTZ 25mg; Take one pill by mouth once a day. Ampicillin 500mg (antibiotic) - take 1 tab 4 times a day for 7days. Cefipime 2g IV (antibiotic)- take every 12 hrs for 3 days. Referrals: Viviana Aleman [Primary Care Provider] - 1 Week Romero Solis MD [Staff Physician] - 1 Week - Home Medications Comprehensive Discharge Medication List: Ambulatory Orders Aa/Hydrolyzed Collagen, Whey [Lps 15-30 Liquid] 30 ml PO BID 05/19/18 Acetaminophen [Tylenol] 650 mg PO QID PRN 05/19/18 Apixaban [Eliquis -] 2.5 mg PO BID 05/19/18 Ascorbic Acid [Vitamin C -] 500 mg PO DAILY 05/19/18 Bacitracin - [Bacitracin Topical Ointment -] 1 applic TP BID 05/19/18 Bisacodyl [Bisacodyl -] 5 mg PO DAILY 05/19/18 Collagenase Clostridium Hist. [Santyl -] 1 applic TP BID 05/19/18 Ferrous Sulfate [Feosol] 1 tab PO DAILY 05/19/18 LORazepam [Ativan] 0.5 mg PO BID 05/19/18 Mvit,Calcium,Iron,Mins/A.acids [[place] Double Strength Capsule] 1 each PO DAILY 05/19/18 Polyethylene Glycol 3350 [Miralax 119 gm Btl -] 17 gm PO DAILY 05/19/18 Propranolol HCl 40 mg PO BID 05/19/18 Risperidone [Risperdal -] 0.25 mg PO BID 05/19/18 Senna [place] Extract [Senna] 7.5 ml PO HS 05/19/18 Ceftriaxone [Rocephin -] 1 gm IVPB DAILY 3 Days vial 06/26/18 Clindamycin [Cleocin -] 300 mg PO Q6HPO 3 Days capsule 06/26/18 Insulin (Levemir) [Levemir Vial] 6 units SQ BID@0700,2200 units 06/26/18 Insulin Sliding Scale [Novolog Vial Sliding Scale -] 1 vial SQ ACHS units 06/26 Ammonium Lactate Lotion [Lac-Hydrin 12] 1 applic TP TID PRN 07/22/18 Docusate Sodium [Colace] 2 cap PO DAILY 07/22/18 Enoxaparin Sodium [Lovenox] 80 mg SQ DAILY 07/22/18 Insulin Glargine,Hum.rec.anlog [Lantus Solostar PEN -] 14 units SQ AM 07/22/18 Insulin Lispro [Humalog Kwikpen U-100] See Protocol SQ TID 07/22/18 Sennosides [Senna] 2 tab PO DAILY 07/22/18 Problem List - Problems (1) Sepsis (2) Hypernatremia (3) Diabetes Qualifiers: Diabetes mellitus type: type 2 Diabetes mellitus usp insulin use: with terminal computer operator use Diabetes mellitus complication status: with skin complications Diabetes mellitus complication detail: with foot ulcer Qualified Code(s): E11.621 - Type 2 diabetes mellitus with foot ulcer; L97.509 - Non-pressure chronic ulcer of other part of unspecified foot with unspecified severity; Z79.4 - skilled nursing (current) use of insulin (4) Recurrent deep vein thrombosis (DVT) (5) Transaminitis This patient is new to me today: No Emergency Visit: Yes ED Registration Date: 07/21/18 Care time: The patient presented to the Emergency Department on the above date and was hospitalized for further evaluation of their emergent condition. Critical Care patient: Yes
--- NOTE | 2018-07-31 13:48 | PN ---
Progress Note, Physician History of Present Illness: stable no issues - Current Medication List Current Medications: Active Medications Acetaminophen (Tylenol -) 650 mg PO Q6H PRN PRN Reason: FEVER Last Admin: 07/28/18 15:32 Dose: 650 mg Collagenase (Santyl -) 1 applic TP BID [facility]; Protocol Last Admin: 07/31/18 09:53 Dose: 1 applic Docusate Sodium (Colace -) 200 mg PO DAILY [facility] Last Admin: 07/31/18 09:53 Dose: 200 mg Emollient Ointment (Aquaphor -) 1 applic TP BID [facility] Last Admin: 07/31/18 11:14 Dose: 1 applic Hydrochlorothiazide (Hctz -) 25 mg PO DAILY [facility] Last Admin: 07/31/18 09:53 Dose: 25 mg Aztreonam 1 gm/ Dextrose 50 mls @ 100 mls/hr IVPB Q8H-IV [facility]; Protocol Last Admin: 07/31/18 09:52 Dose: 100 mls/hr Insulin Aspart (Novolog Vial Sliding Scale -) 1 vial SQ ACHS [facility]; Protocol Last Admin: 07/31/18 11:42 Dose: 4 units Insulin Detemir (Levemir Vial) 14 units SQ AM [facility] Last Admin: 07/31/18 06:44 Dose: 14 units Magnesium Oxide (Mag-Ox -) 400 mg PO BID [facility] Last Admin: 07/31/18 09:53 Dose: 400 mg Risperidone (Risperdal -) 0.25 mg PO BID [facility] Last Admin: 07/31/18 09:53 Dose: 0.25 mg - Objective Vital Signs: Vital Signs Temperature 98.3 F 07/31/18 10:00 Pulse Rate 124 H 07/31/18 10:00 Respiratory Rate 20 07/31/18 10:00 Blood Pressure 115/69 07/31/18 10:00 O2 Sat by Pulse Oximetry (%) 96 07/31/18 09:00 Constitutional: Yes: No Distress, Calm Cardiovascular: Yes: Regular Rate and Rhythm Respiratory: Yes: Regular, CTA Bilaterally Gastrointestinal: Yes: Normal Bowel Sounds, Soft Musculoskeletal: Yes: Other Extremities: Yes: Other Wound/Incision: Yes: Dressing Dry and Intact Neurological: Yes: Alert, Oriented Psychiatric: Yes: Alert, Oriented Labs: CBC, BMP 07/30/18 18:30 07/31/18 06:00 INR, PTT INR 1.11 (0.83-1.09) H 07/21/18 20:10 Assessment/Plan ASSESSMENT/PLAN: 73 yo female with PMH of HTN, HLD, IDDM, recent DVT on Eliquis, presented from [facility] for abnormal labs and worsening sacral and heel ulcers Sepsis IDDM DVT infected wound sacral decubitus uti plan cefepime for 4 more days ampicillin po for 7 more days wound care rest as per the team
[2018-07-31 14:04] VITALS: BP 135/80; PULSE 137; TEMP 98.4
== END 2018-07-31 14:13 | disposition hospice, inpatient (51) | DRG 853 ==
LOC: JER 18:27 → JERBED 22:04 → J7W 07-23 02:04
PROVIDERS: ADMIT Internal Medicine; ATTEND Internal Medicine
PROC: 0KBN0ZZ Excision of Right Hip Muscle, Open Approach (ICD-10-PCS; principal; 2018-07-23 12:00)
DX: A41.9 Sepsis, unspecified organism (principal); L89.154 Pressure ulcer of sacral region, stage 4; L89.314 Pressure ulcer of right buttock, stage 4; L89.613 Pressure ulcer of right heel, stage 3; R53.2 Functional quadriplegia; N39.0 Urinary tract infection, site not specified; E87.2 Acidosis; E87.0 Hyperosmolality and hypernatremia; N25.1 Nephrogenic diabetes insipidus; E87.1 Hypo-osmolality and hyponatremia; E11.65 Type 2 diabetes mellitus with hyperglycemia; Z74.01 Bed confinement status; B96.5 Pseudomonas (aeruginosa) (mallei) (pseudomallei) as the cause of diseases classified elsewhere; I10 Essential (primary) hypertension; K80.20 Calculus of gallbladder without cholecystitis without obstruction; R16.0 Hepatomegaly, not elsewhere classified; E11.621 Type 2 diabetes mellitus with foot ulcer; E78.5 Hyperlipidemia, unspecified; I48.91 Unspecified atrial fibrillation; Z79.4 Long term (current) use of insulin; Z87.891 Personal history of nicotine dependence; R62.7 Adult failure to thrive; Z86.718 Personal history of other venous thrombosis and embolism; R74.0 Nonspecific elevation of levels of transaminase and lactic acid dehydrogenase [LDH]
CPT/HCPCS: 36415; 71045-TC-FY; 72170-TC-FY; 73630-TC-LT; 73630-TC-RT-FY; 76705-TC; 80048; 80053; 81003; 81015; 82962; 83036; 83605; 83690; 83735; 83930; 83935; 84100; 84300; 85025; 85610; 85730; 86850; 86870; 86900; 86901; 86902; 87040; 87070; 87075; 87086; 87186; 87205; 88304-TC; 93005; 93010; 94760; 99285-25; G0463-25; J0131; J7030

== ENCOUNTER 2019-08-10 17:30 | Inpatient (IN) | payer OTHER ==
[2019-08-10] MEDS ORDERED: SODIUM CHLORIDE 1,905 ML IV ONE (18:48)
[2019-08-10] MEDS ORDERED: SODIUM CHLORIDE 0.9% 500 ML INFUS.BAG IV ONE (18:50)
[2019-08-10] MEDS ORDERED: ACETAMINOPHEN 1000 MG/100 ML VIAL (NON FORMULARY) IVPB ONE (18:51)
[2019-08-10] MEDS ORDERED: ACETAMINOPHEN INJECTION 100 ML IVPB ONE (19:24)
--- NOTE | 2019-08-10 19:32 | PDOC ---
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 Pt was admitted in the past for anemia and sepsis 2/2 to sacral decub ulcers. At the time she underwent excisional debridement of the ulcer. Upon admission today, pt was found to be febrile to 103.6 and tachy 130s. As per daughter, she was doing well till today morning when she began to experience mild lethargy and abdominal discomfort. Denies recent travels. She denies any previous PR, strokes or PE's. She denies n /v/d/sob/chest pain/hematuria/dysuria/hematochezia. 08/10/19 19:21 08/10/19 19:42 08/10/19 19:59 Is this a multiple visit Asthma Patient?: No Severity: moderate Associated Symptoms: reports: fever/chills Aspirin Received prior to arrival: Yes: no aspirin today Past History - Travel Traveled outside of the country in the last 30 days: No Close contact w/someone who was outside of country & ill: No - Past Medical History Allergies/Adverse Reactions: Allergies Allergy/AdvReac Type Severity Reaction Status Date / Time No Known Allergies Allergy Verified 08/10/19 18:14 Home Medications: Ambulatory Orders Aa/Hydrolyzed Collagen, Whey [Lps 15-30 Liquid] 30 ml PO BID 05/19/18 Acetaminophen [Tylenol] 650 mg PO QID PRN 05/19/18 Apixaban [Eliquis -] 2.5 mg PO BID 05/19/18 Ascorbic Acid [Vitamin C -] 500 mg PO DAILY 05/19/18 Bacitracin - [Bacitracin Topical Ointment -] 1 applic TP BID 05/19/18 Bisacodyl [Bisacodyl -] 5 mg PO DAILY 05/19/18 Collagenase Clostridium Hist. [Santyl -] 1 applic TP BID 05/19/18 Ferrous Sulfate [Feosol] 1 tab PO DAILY 05/19/18 LORazepam [Ativan] 0.5 mg PO BID 05/19/18 Mvit,Calcium,Iron,Mins/A.acids [[place] Double Strength Capsule] 1 each PO DAILY 05/19/18 Polyethylene Glycol 3350 [Miralax 119 gm Btl -] 17 gm PO DAILY 05/19/18 Propranolol HCl 40 mg PO BID 05/19/18 Risperidone [Risperdal -] 0.25 mg PO BID 05/19/18 Senna [place] Extract [Senna] 7.5 ml PO HS 05/19/18 Ceftriaxone [Rocephin -] 1 gm IVPB DAILY 3 Days vial 06/26/18 Clindamycin [Cleocin -] 300 mg PO Q6HPO 3 Days capsule 06/26/18 Insulin (Levemir) [Levemir Vial] 6 units SQ BID@0700,2200 units 06/26/18 Insulin Sliding Scale [Novolog Vial Sliding Scale -] 1 vial SQ ACHS units 06/26 Ammonium Lactate Lotion [Lac-Hydrin 12] 1 applic TP TID PRN 07/22/18 Docusate Sodium [Colace] 2 cap PO DAILY 07/22/18 Enoxaparin Sodium [Lovenox] 80 mg SQ DAILY 07/22/18 Insulin Glargine,Hum.rec.anlog [Lantus Solostar PEN -] 14 units SQ AM 07/22/18 Insulin Lispro [Humalog Kwikpen U-100] See Protocol SQ TID 07/22/18 Sennosides [Senna] 2 tab PO DAILY 07/22/18 Ampicillin Trihydrate [Ampicillin Trihydrate Capsule] 500 mg PO Q6H #28 cap 03/11 Cefepime [Maxipime 2Gm Ivpb (Pre-Docked)] 2 gm IVPB BID #6 bag 07/31/18 Hydrochlorothiazide [Hctz -] 25 mg PO DAILY #30 tablet 07/31/18 Anemia: Yes Asthma: No Cancer: No Cardiac Disorders: (afib) CVA: No COPD: No CHF: No Dementia: No Diabetes: Yes GI Disorders: Yes (Constipation) Disorders: No HTN: Yes Hypercholesterolemia: No Liver Disease: No Seizures: No Thyroid Disease: No - Surgical History Abdominal Surgery: No Appendectomy: No Cardiac Surgery: No Lung Surgery: No Neurologic Surgery: No Orthopedic Surgery: No - Immunization History Immunization Up to Date: Yes - Psycho Social/Smoking Cessation Hx Smoking History: Unknown if ever smoked Have you smoked in the past 12 months: Yes If you are a former smoker, when did you quit?: when entered fdc Hx Alcohol Use: No Drug/Substance Use Hx: No Substance Use Type: None Hx Substance Use Treatment: No Review of Systems - Review of Systems Constitutional: Yes: Chills, Fever. No: Diaphoresis, Loss of Appetite, Malaise , Night Sweats, Weakness HEENTM: No: Blurred Vision, Throat Swelling, Difficulty Swallowing, Mouth Swelling Respiratory: No: Cough, Orthopnea, Shortness of Breath, SOB with Exertion, Productive cough Cardiac (ROS): No: Chest Pain, Palpitations ABD/GI: Yes: Abd. Pain w/ defecation. No: Abdominal Distended, Constipated, Diarrhea, Nausea, Vomiting, Abdominal cramping : No: Dysuria, Discharge, Hematuria Musculoskeletal: No: Back Pain Neurological: No: Headache, Numbness, Seizure *Physical Exam - Vital Signs Last Vital Signs Temp Pulse Resp BP Pulse Ox 103.6 F H 129 H 18 134/71 95 08/10/19 17:30 08/10/19 17:30 08/10/19 17:30 08/10/19 17:30 08/10/19 17:30 - Physical Exam General Appearance: Yes: Cachetic, Thin HEENT: positive: EOMI, PATRICIA, Normal ENT Inspection, Normal Voice Neck: positive: Trachea midline, Normal Thyroid, Supple Respiratory/Chest: positive: Lungs Clear, Normal Breath Sounds Cardiovascular: positive: Regular Rhythm, Tachycardia. negative: Murmur, Gallop /S3 Vascular Pulses: Dorsalis-Pedis (R): 2+, Doralis-Pedis (L): 2+ Gastrointestinal/Abdominal: positive: Normal Bowel Sounds, Soft, Tenderness Rectal Exam: positive: heme negative stool, normal exam, normal rectal tone. negative: heme positive stool Lymphatic: negative: Adenopathy, Tenderness Musculoskeletal: positive: Normal Inspection, CVA Tenderness Extremity: positive: Normal Capillary Refill, Normal Inspection, Normal Range of Motion Neurologic: positive: Fully Oriented, Alert ED Treatment Course - LABORATORY CBC & Chemistry Diagram: 08/10/19 20:15 08/10/19 20:15 - RADIOLOGY Radiology Studies Ordered: Category Date Time Status CHEST X-RAY PORTABLE* [RAD] Stat Radiology 08/10/19 18:48 Ordered Medical Decision Making - Medical Decision Making 74 y/o F, w/ extensive pmh of htn, dm, hld, hx of dvt on eliqus, 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 presents BIBA from [facility] [place] ) for anemia (hb 8.1) on routine blood draw now found to be tachy and febrile #Fever+ tachy 2/2 to sepsis, unknown source could be 2/2 to sacral stage 3/4 ulcer Fever at 103.6, Tachy to 130 CXR- r/o pulmonary source Lactic acid ordered EKG and trops- will f/u PT/INR Cardiac monitoring Flu swab sent BCx sent #Anemia r/o GI bleed SOBT neg Heme occult sent #Suprapubic tenderness likely 2/2 to UTI UA, UCx to r/o source #DVT cont home meds- on Eliquis- restart after reconcile meds FEN: monitor lytes 500 IV fluid bolus Dispo: f/u Lactic acid and CXR, f/u Cultures 08/10/19 19:50 08/10/19 19:54 08/10/19 19:55 08/10/19 19:56 Discharge - Discharge Information Problems reviewed: Yes Clinical Impression/Diagnosis: Sepsis Qualifiers: Sepsis type: sepsis due to unspecified organism Sepsis acute organ dysfunction status: with acute organ dysfunction Severe sepsis acute organ dysfunction type : acute renal failure Acute renal failure type: unspecified Severe sepsis shock status: without septic shock Qualified Code(s): A41.9 - Sepsis, unspecified organism; R65.20 - Severe sepsis without septic shock; N17.9 - Acute kidney failure, unspecified - Admission Yes - Follow up/Referral - Patient Discharge Instructions - Post Discharge Activity
[2019-08-10 20:49] LABS: BASO % 0.4 % (0-2.0); EOS % 0.2 % (0-4.5); HEMOGLOBIN 9.8 GM/dL (10.7-15.3); LYMPH % 5.8 % (8-40); MCH 25.4 pg (25.7-33.7); MCHC 31.7 g/dl (32.0-36.0); MEAN PLT VOLUME 9.2 fl (7.5-11.1); MONO % 5.7 % (3.8-10.2); NEUT % 87.9 % (42.8-82.8); PLATELET COUNT 295 K/MM3 (134-434); RBC 3.88 M/mm3 (3.60-5.2); RDW 14.6 % (11.6-15.6); WHITE BLOOD COUNT 11.1 K/mm3 (4.0-10.0)
[2019-08-10 20:54] LABS: VENOUS PC02 35.9 mmHg (38-52); VENOUS PH 7.41 (7.31-7.41)
[2019-08-10 20:55] LABS: VENOUS PO2 < 49 mmHg (28-48)
[2019-08-10 20:57] LABS: EPI CELLS 0.1 /HPF (0-5/HPF); HYALINE CASTS 1 /lpf (0-8); PH,URINE 6.5 (5.0-8.0); URINE APPEARANCE CLEAR; URINE BACTERIA 141.4 /hpf (NEGATIVE); URINE BILIRUBIN NEGATIVE (NEGATIVE); URINE COLOR YELLOW; URINE GLUCOSE (UA) 1+ (NEGATIVE); URINE KETONE NEGATIVE (NEGATIVE); URINE LEUK ESTERASE 1+ (NEGATIVE); URINE NITRITE NEGATIVE (NEGATIVE); URINE PROTEIN 2+ (NEGATIVE); URINE RBC 4 /hpf (0-4); URINE UROBILINOGEN 0.2 mg/dL (0.2-1.0); URINE WBC 23 /hpf (0-5)
[2019-08-10 21:05] LABS: INR 1.42 (0.83-1.09); PROTHROMBIN TIME (PATIENT) 16.8 SEC (9.7-13.0)
[2019-08-10 21:07] LABS: ACTIVATED PTT 45.2 SECONDS (25.2-36.5)
[2019-08-10 21:34] LABS: ALBUMIN 2.4 g/dl (3.4-5.0); ALK PHOS 148 U/L (45-117); ANION GAP 8 MMOL/L (8-16); BILIRUBIN,TOTAL 0.2 mg/dL (0.2-1); BLOOD UREA NITROGEN 55.9 mg/dL (7-18); CALCIUM 9.4 mg/dL (8.5-10.1); CHLORIDE 106 mmol/L (98-107); CO2 25 mmol/L (21-32); CREATININE 2.2 mg/dL (0.55-1.3); GLUCOSE,RANDOM 291 mg/dL (74-106); POTASSIUM 3.8 mmol/L (3.5-5.1); SGOT/AST 26 U/L (15-37); SGPT/ALT 45 U/L (13-61); SODIUM 138 mmol/L (136-145); TOT PROT 7.6 g/dl (6.4-8.2)
[2019-08-10] MEDS ORDERED: VANCOMYCIN 1 GM in D5W (PRE-DOCKED) 1,000 MG/250 ML IVPB ONE (22:03)
--- NOTE | 2019-08-10 22:20 | PN ---
Teaching Attending Note Name of Resident: Juanis Whitlock ATTENDING PHYSICIAN STATEMENT I saw and evaluated the patient. I reviewed the resident's note and discussed the case with the resident. I agree with the resident's findings and plan as documented. SUBJECTIVE: OBJECTIVE: ASSESSMENT AND PLAN:
[2019-08-10] MEDS ORDERED: VANCOMYCIN 1 GRAM (PRE-DOCKED) 1,000 MG/250 ML BAG IVPB ONE (22:45)
--- NOTE | 2019-08-10 23:52 | HP ---
CHIEF COMPLAINT: Sepsis PCP: [facility] Vascular: Dr. Solis HISTORY OF PRESENT ILLNESS: Ms. Estrada is a 74 year old female with PMH of HTN, DM2, HLD, chronic Afib (on eliquis), stage IV decubitus sacral ulcer, functional quadriplegia BIBEMS from [facility] for anemia (Hgb 8.1). Pt's daughter is at bedside to assist with history. Pt has complained of mild abdominal discomfort and decreased appetite over the past 2 days. Also notes subjective fevers and chills (unknown how high). Blood work was done at nursing facility today and Hgb was 8.1, so she was brought into the ED. Upon arrival, pt was tachycardic at 129, febrile at 103.6. She denies any nausea, vomiting, chest pain, SOB, urinary symptoms, headaches. Of note, pt has had multiple hospitalizations at [facility] for infectious ulcers requiring extensive debridement and IV abx treatment. Wounds in past have grown VRE, MRSA, proteus mirabilis, morganella morganii, pseudomonas, citrobacter ER course was notable for: (1) CXR: No acute pathology (2) WBC: 11.1; lactic acid: neg; UA: 1+ LE, 2+ blood, 2+ protein (3) Started on 1gm vanc, 3.375gm zosyn Recent Travel: denies PAST MEDICAL HISTORY: As per HPI PAST SURGICAL HISTORY: Multiple debridements Social History: Smokin/2 ppd for 50 yrs, quit 1 year ago Alcohol: denies Drugs: denies Allergies No Known Allergies Allergy (Verified 08/10/19 18:14) HOME MEDICATIONS: Home Medications Medication Instructions Recorded Aa/Hydrolyzed Collagen, Whey [Lps 30 ml PO BID 05/19/18 15-30 Liquid] Acetaminophen [Tylenol] 650 mg PO QID PRN 05/19/18 Apixaban [Eliquis -] 2.5 mg PO BID 05/19/18 Ascorbic Acid [Vitamin C -] 500 mg PO DAILY 05/19/18 Bacitracin - [Bacitracin Topical 1 applic TP BID 05/19/18 Ointment -] Bisacodyl [Bisacodyl -] 5 mg PO DAILY 05/19/18 Collagenase Clostridium Hist. 1 applic TP BID 05/19/18 [Santyl -] Ferrous Sulfate [Feosol] 1 tab PO DAILY 05/19/18 LORazepam [Ativan] 0.5 mg PO BID 05/19/18 Mvit,Calcium,Iron,Mins/A.acids 1 each PO DAILY 05/19/18 [K-Ehrhardt Double Strength Capsule] Polyethylene Glycol 3350 [Miralax 17 gm PO DAILY 05/19/18 119 gm Btl -] Propranolol HCl 40 mg PO BID 05/19/18 Risperidone [Risperdal -] 0.25 mg PO BID 05/19/18 Senna [place] Extract [Senna] 7.5 ml PO HS 05/19/18 Ceftriaxone [Rocephin -] 1 gm IVPB DAILY 3 Days vial 06/26/18 Clindamycin [Cleocin -] 300 mg PO Q6HPO 3 Days capsule 06/26/18 Insulin (Levemir) [Levemir Vial] 6 units SQ BID@0700,2200 units 06/26/18 Insulin Sliding Scale [Novolog 1 vial SQ ACHS units 06/26/18 Vial Sliding Scale -] Ammonium Lactate Lotion 1 applic TP TID PRN 07/22/18 [Lac-Hydrin 12] Docusate Sodium [Colace] 2 cap PO DAILY 07/22/18 Enoxaparin Sodium [Lovenox] 80 mg SQ DAILY 07/22/18 Insulin Glargine,Hum.rec.anlog 14 units SQ AM 07/22/18 [Lantus Solostar PEN -] Insulin Lispro [Humalog Kwikpen See Protocol SQ TID 07/22/18 U-100] Sennosides [Senna] 2 tab PO DAILY 07/22/18 Ampicillin Trihydrate [Ampicillin 500 mg PO Q6H #28 cap 07/31/18 Trihydrate Capsule] Cefepime [Maxipime 2Gm Ivpb 2 gm IVPB BID #6 bag 07/31/18 (Pre-Docked)] Hydrochlorothiazide [Hctz -] 25 mg PO DAILY #30 tablet 07/31/18 REVIEW OF SYSTEMS CONSTITUTIONAL: fever, loss of appetite Absent: chills, diaphoresis, generalized weakness, malaise, weight change HEENT: Absent: rhinorrhea, nasal congestion, throat pain, throat swelling, difficulty swallowing, mouth swelling, ear pain, eye pain, visual changes CARDIOVASCULAR: Absent: chest pain, syncope, palpitations, irregular heart rate, lightheadedness , peripheral edema RESPIRATORY: Absent: cough, shortness of breath, dyspnea with exertion, orthopnea, wheezing, stridor, hemoptysis GASTROINTESTINAL: abdominal discomfort Absent: abdominal distension, nausea, vomiting, diarrhea, constipation, melena , hematochezia GENITOURINARY: Absent: dysuria, frequency, urgency, hesitancy, hematuria, flank pain, genital pain MUSCULOSKELETAL: Absent: myalgia, arthralgia, joint swelling, back pain, neck pain SKIN: Absent: rash, itching, pallor HEMATOLOGIC/IMMUNOLOGIC: Absent: easy bleeding, easy bruising, lymphadenopathy, frequent infections ENDOCRINE: Absent: unexplained weight gain, unexplained weight loss, heat intolerance, cold intolerance NEUROLOGIC: Absent: headache, focal weakness or paresthesias, dizziness, unsteady gait, seizure, mental status changes, bladder or bowel incontinence PSYCHIATRIC: Absent: anxiety, depression, suicidal or homicidal ideation, hallucinations. PHYSICAL EXAMINATION Vital Signs - 24 hr 08/10/19 17:30 Temperature 103.6 F H Pulse Rate 129 H Respiratory 18 Rate Blood Pressure 134/71 O2 Sat by Pulse 95 Oximetry (%) GENERAL: Pt is arousable, but confused. A&Ox3 HEAD: Normal with no signs of trauma. EYES: Pupils equal, round and reactive to light, extraocular movements intact, sclera anicteric, conjunctiva clear. No lid lag. EARS, NOSE, THROAT: Ears normal, nares patent, oropharynx clear without exudates. Moist mucous membranes. NECK: Normal range of motion, supple without lymphadenopathy, JVD, or masses. LUNGS: Breath sounds equal, clear to auscultation bilaterally. No wheezes, and no crackles. No accessory muscle use. HEART: Regular rate and rhythm, normal S1 and S2 without murmur, rub or gallop. ABDOMEN: Soft, not distended, mild tenderness diffusely, normoactive bowel sounds, no guarding, no rebound, no masses. No hepatomegaly or splenomegaly. MUSCULOSKELETAL: Normal range of motion at all joints. No bony deformities or tenderness. No CVA tenderness. UPPER EXTREMITIES: 1+ pulses, warm, well-perfused. No cyanosis. No clubbing. No peripheral edema. LOWER EXTREMITIES: 1+ pulses, warm, well-perfused. No calf tenderness. No peripheral edema. SKIN: Warm, dry, normal skin turgor. 4-5cm stage IV decubitus sacral ulcer with white granulation tissue surrounding margins. Erythematous borders. Purulent drainage. Healed decubitus ulcer on heels BL. Several 1cm stage 1 ulcers on neck and back. Laboratory Results - last 24 hr CBC, BMP 08/10/19 20:15 08/10/19 20:15 Urine Test Results Urine Color Yellow Urine Appearance Clear Urine pH 6.5 (5.0-8.0) Ur Specific [place] 1.008 (1.010-1.035) L Urine Protein 2+ (NEGATIVE) H Urine Glucose (UA) 1+ (NEGATIVE) H Urine Ketones Negative (NEGATIVE) Urine Blood 2+ (NEGATIVE) H Urine Nitrite Negative (NEGATIVE) Urine Bilirubin Negative (NEGATIVE) Ur Leukocyte Esterase 1+ (NEGATIVE) H ASSESSMENT/PLAN: Ms. Estrada is a 74 year old female with PMH of HTN, DM2, HLD, chronic Afib (on eliquis), stage 3 decubitus sacral ulcer, functional quadriplegia who presents with sepsis. #Sepsis likely 2/2 decubitus sacral ulcer vs UTI Stage IV decubitus sacral ulcer with erythematous borders, tender to palpation. 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 Solis) for I&D Consult ID (Dr. Ohara) #AMILCAR on CKD Likely 2/2 sepsis BUN/Cr: 55.9, 2.2 (baseline Cr: 1.4) Consider renal US Maintenance fluids, monitor kidney function Avoid nephrotoxic agents #Elevated alk phos Likely 2/2 underlying bone involvement from osteomyelitis Abd US to r/o cholecystitis/choledocolithiasis #DM2 Cont home levemir 6units BID SSI TIDAC Frequent FSG monitoring F/u Hgb A1C (7.0% 06/2018) #Chronic Afib EKG: sinus tachycardia, no st elevations or t wave inversions Cont home eliquis 2.5mg BID #HTN Cont home meds: propanolol 20mg BID #FEN IVF NS @ 100ml/hr NPO (except meds) pending possible I&D tomorrow #DVT ppx Pt on eliquis 2.5mg BID #Dispo Monitor on med-surg DNR/DNI Visit type - Emergency Visit Emergency Visit: Yes ED Registration Date: 08/10/19 Care time: The patient presented to the Emergency Department on the above date and was hospitalized for further evaluation of their emergent condition. - New Patient This patient is new to me today: Yes Date on this admission: 08/15/19 - Critical Care Critical Care patient: No ATTENDING PHYSICIAN STATEMENT I saw and evaluated the patient. I reviewed the resident's note and discussed the case with the resident. I agree with the resident's findings and plan as documented. SUBJECTIVE: OBJECTIVE: ASSESSMENT AND PLAN:
--- NOTE | 2019-08-11 01:03 | PDOC ---
Documentation entered by Ananda Watson SCRIBE, acting as scribe for Gladys Delarosa MD. Gladys Delarosa MD: This documentation has been prepared by the Walter kaur Xhesika, SCRIBE, under my direction and personally reviewed by me in its entirety. I confirm that the documentation accurately reflects all work, treatment, procedures, and medical decision making performed by me. Attending Attestation - Resident Resident Name: Efraín Delarosa - ED Attending Attestation I have performed the following: I have examined & evaluated the patient, The case was reviewed & discussed with the resident, I agree w/resident's findings & plan, Exceptions are as noted - HPI HPI: 08/10/19 19:24 The patient is a 74 year old female with a significant PMH of HTN, HLD, DM, Afib who presents to the emergency department [facility] from [facility] for anemia. Pt reports suprabupic discomfort. Upon arrival pt was febrile and tachycardic. The patient denies chest pain, shortness of breath, headache and dizziness. Denies fever, chills, cough, nausea, vomiting, diarrhea and constipation. Denies dysuria, frequency, urgency and hematuria. Allergies: NKDA Vascular: Dr. Solis - Physicial Exam PE: 08/10/19 19:25 GENERAL: Frail appearing awake 74 yo female presents tachycardic with + Febrile HEAD: No signs of trauma EYES: PERRLA, EOMI, sclera anicteric, conjunctiva clear NECK: Normal ROM, supple, no lymphadenopathy, JVD, or masses LUNGS: Breath sounds equal, clear to auscultation bilaterally. No wheezes, and no crackles HEART: Regular rate and rhythm, normal S1 and S2, no murmurs, rubs or gallops ABDOMEN: Soft, nontender, normoactive bowel sounds. No guarding, no rebound. No masses EXTREMITIES: +stage 3 decubitus ulcers near coxis.+ulcers on heels. no edema. No clubbing or cyanosis. RECTAL: brown stool SKIN: +Skin excoriation scattered all over extremities 08/10/19 22:47 08/11/19 01:00 - Medical Decision Making 08/11/19 00:26 This 74-year-old female was brought in by ambulance from the [facility] for anemia but found to have a fever of 103.6 Influenza was negative UA positive for UTI Patient has anemia with hgb=9.8 and hct=31 but is stool hemoccult negative Stool culture stool Hemoccult was negative pt has AMILCAR with cr 2.2, bun = 55 lactic acid is normal 08/11/19 00:42 08/11/19 00:43 pt admitted for UTI, and receiving IV antibiotics 08/11/19 01:02
[2019-08-11] MEDS ORDERED: MEROPENEM 1 GM in DEXTROSE 5%-WATER 100 ML IVPB ONE (01:30)
[2019-08-11] MEDS ORDERED: PIPERACILLIN/TAZOB 3.375 GM 3.375 GM/50 ML BAG IVPB ONE (02:18)
[2019-08-11] MEDS: PIPERACILLIN/TAZOB 3.375 GM 3.375 GM in DEXTROSE 5%-WATER - 50 ML IVPB SCH ×2 (02:27→11:14)
--- NOTE | 2019-08-11 02:33 | PN ---
Teaching Attending Note Name of Resident: Juanis Whitlock ATTENDING PHYSICIAN STATEMENT I saw and evaluated the patient. I reviewed the resident's note and discussed the case with the resident. I agree with the resident's findings and plan as documented. SUBJECTIVE: 74 y/o F With history of htn, dm, hld, hx of dvt/afib on eliqus, 4 sacral decub ulcer BIBA from [facility] for anemia on routine blood draw. In the emergency room she was noted to be septic with high fever and tachycardia. Previous admissions on May and June 2018 for infected sacral wound requiring extensive debridement and IV antibiotic treatment. Polymicrobial infection of sacral wound including Pseudomonas aeruginosa, VRE, Citrobacter, Morganelli morganii, Proteus mirabilis, MRSA, E. coli. OBJECTIVE: Last Vital Signs Temp Pulse Resp BP Pulse Ox 103.6 F H 131 H 24 H 141/57 L 100 08/10/19 17:30 08/10/19 19:10 08/10/19 19:10 08/10/19 19:10 08/10/19 19:10 GENERAL: Elderly, frail, not in acute distress HEENT: Normocephalic, atraumatic. PERRLA, EOMI. No conjunctival pallor. Sclera are non- icteric. Moist mucous membranes. Oropharynx is clear. NECK: Supple. Full ROM. No JVD. Carotid pulses 2+ and symmetric, without bruits. No thyromegaly. No lymphadenopathy. CARDIOVASCULAR: Regular rate and rhythm. No murmurs, rubs, or gallops. Distal pulses are 2+ and symmetric. PULMONARY: No evidence of respiratory distress. Lungs clear to auscultation bilaterally. No wheezing, rales or rhonchi. ABDOMINAL: Soft. Non-tender. Non-distended. No rebound or guarding. No organomegaly. Normoactive bowel sounds. MUSCULOSKELETAL Normal range of motion at all joints. No bony deformities or tenderness. No CVA tenderness. EXTREMITIES: No cyanosis. No clubbing. No edema. No calf tenderness. SKIN: Stage IV sacral ulcer, purulent discharge PSYCHIATRIC: Uncooperative Abnormal Lab Results 08/10/19 08/10/19 08/10/19 20:10 20:15 20:15 WBC 11.1 H Hgb 9.8 L Hct 31.0 L MCH 25.4 L D MCHC 31.7 L Absolute Neuts (auto) 9.8 H Neutrophils % 87.9 H D Lymphocytes % 5.8 L D ESR PT with INR 16.80 H INR 1.42 H PTT (Actin FS) 45.2 H POC VBG pCO2 POC VBG pO2 VBG HCO3 BUN Creatinine Random Glucose Alkaline Phosphatase C-Reactive Protein Albumin Ur Specific [place] 1.008 L Urine Protein 2+ H Urine Glucose (UA) 1+ H Urine Blood 2+ H Ur Leukocyte Esterase 1+ H Antibody Screen 08/10/19 08/10/19 08/10/19 20:15 20:15 20:15 WBC Hgb Hct MCH MCHC Absolute Neuts (auto) Neutrophils % Lymphocytes % ESR PT with INR INR PTT (Actin FS) POC VBG pCO2 35.9 L POC VBG pO2 < 49 H VBG HCO3 22.3 L BUN 55.9 H Creatinine 2.2 H Random Glucose 291 H Alkaline Phosphatase 148 H C-Reactive Protein Albumin 2.4 L Ur Specific [place] Urine Protein Urine Glucose (UA) Urine Blood Ur Leukocyte Esterase Antibody Screen Positive H 08/11/19 08/11/19 01:22 01:22 WBC Hgb Hct MCH MCHC Absolute Neuts (auto) Neutrophils % Lymphocytes % ESR 119 H PT with INR INR PTT (Actin FS) POC VBG pCO2 POC VBG pO2 VBG HCO3 BUN Creatinine Random Glucose Alkaline Phosphatase C-Reactive Protein 23.5 H Albumin Ur Specific [place] Urine Protein Urine Glucose (UA) Urine Blood Ur Leukocyte Esterase Antibody Screen Chest x-ray reviewed, sharp costophrenic angles with no infiltrates appreciated EKG reviewed ASSESSMENT AND PLAN: Severe sepsis secondary to underlying sacral wound infection. Stage IV sacral ulcer, suspect polymicrobial infection. Will treat broadly at this time especially in light of resistant microorganisms which are mentioned above. Suspect probable underlying osteomyelitis. Will likely require debridement and prolonged IV antibiotic therapy. Inflammation markers noted to be elevated with CRP being 23 and ESR being 119. Leukocytosis, anemia with hemoglobin of 9.8. Elevated alkaline phosphatase may be secondary to underlying bone involvement from suspected osteomyelitis but should rule out cholecystitis or choledocholithiasis at this time. Severely uncontrolled hyperglycemia likely contributing to poor wound healing and worsening of sacral infection. AMILCAR on CKD likely secondary to sepsis. Lactate was noted to be normal at this time. Admit to [facility] Blood cultures x2 Wound culture from purulent drainage Empiric daptomycin in light of past VRE and MRSAshould be adjusted to weight and renal clearance Meropenem empirically, microorganisms noted to have high ASHLEIGH to Zosyn in the past IV fluid hydration as patient is suspected to be intravascularly depleted at this time Vascular surgery consultDr. Solis for wound care and likely debridement Infectious disease consultation MRI of pelvis to evaluate extent of infection, evaluate for fluid collections, evaluate for osteomyelitis Right upper quadrant ultrasound to exclude cholestatic hepatobiliary process Renal sonogram Avoid unnecessary nephrotoxins I's and O's and daily weights #History of Paroxysmal A. fib Would continue with apixaban #Uncontrolled diabetes mellitus Tight NovoLog sliding scale A1c Diabetic diet #Advanced directivespatient noted to be DNR/DNI form detention documentation
[2019-08-11] MEDS: SODIUM CHLORIDE 1,000 ML IV SCH ×2 (02:50→23:18)
[2019-08-11] MEDS ORDERED: DAPTOMYCIN IVPB ONE (04:00)
[2019-08-11] MEDS ORDERED: SODIUM CHLORIDE IVPB ONE (04:00)
[2019-08-11] MEDS ORDERED: INSULIN SLIDING SCALE (NOVOLOG) 1 VIAL SQ SCH (07:00)
[2019-08-11] MEDS: INSULIN (LEVEMIR) 100 UNITS/ML UNITS SQ SCH ×3 (07:04→23:59)
[2019-08-11] MEDS: INSULIN SLIDING SCALE (NOVOLOG) 1 VIAL SQ SCH ×4 (07:05→18:58)
--- NOTE | 2019-08-11 07:45 | PN ---
Progress Note, Physician Chief Complaint: Patient states she is hungry. Wants to return back to [place] History of Present Illness: Ms. Estrada is a 74 year old female with PMH of HTN, DM2, HLD, chronic Afib (on eliquis), stage IV decubitus sacral ulcer, functional quadriplegia BIBEMS from [facility] for anemia (Hgb 8.1). Pt's daughter is at bedside to assist with history. Pt has complained of mild abdominal discomfort and decreased appetite over the past 2 days. Also notes subjective fevers and chills (unknown how high). Blood work was done at nursing facility today and Hgb was 8.1, so she was brought into the ED. Upon arrival, pt was tachycardic at 129, febrile at 103.6. She denies any nausea, vomiting, chest pain, SOB, urinary symptoms, headaches. - Current Medication List Current Medications: Active Medications Apixaban (Eliquis -) 2.5 mg PO BID YOAV Piperacillin Sod/Tazobactam (Sod 3.375 gm/ Dextrose) 50 mls @ 100 mls/hr IVPB Q8H-IV YOAV; Protocol Last Admin: 08/11/19 02:27 Dose: 100 mls/hr Sodium Chloride (Normal Saline -) 1,000 mls @ 100 mls/hr IV ASDIR YOAV Last Admin: 08/11/19 02:50 Dose: 100 mls/hr Insulin Aspart (Novolog Vial Sliding Scale -) 1 vial SQ TIDAC [facility]; Protocol Insulin Detemir (Levemir Vial) 6 units SQ BID@0700,2200 [facility] Lorazepam (Ativan -) 1 mg PO BID YOAV Propranolol HCl (Inderal -) 20 mg PO BID YOAV Risperidone (Risperdal -) 0.25 mg PO BID [facility] - Objective Vital Signs: Vital Signs Temperature 99.8 F H 08/11/19 05:26 Pulse Rate 110 H 08/11/19 05:26 Respiratory Rate 20 08/11/19 07:06 Blood Pressure 127/55 L 08/11/19 05:26 O2 Sat by Pulse Oximetry (%) 100 08/11/19 07:06 Constitutional: Yes: Well Nourished, No Distress, Calm Eyes: Yes: WNL, Conjunctiva Clear HENT: Yes: WNL, Atraumatic, Normocephalic Neck: Yes: WNL, Supple, Trachea Midline Cardiovascular: Yes: Regular Rate and Rhythm, Tachycardia (HR 100) Respiratory: Yes: WNL, Regular, CTA Bilaterally Gastrointestinal: Yes: Normal Bowel Sounds, Soft, Tenderness (mild diffuse TTP) ...Rectal Exam: Yes: Deferred Genitourinary: Yes: [place] Present Breast(s): Yes: WNL Musculoskeletal: Yes: Muscle Weakness Extremities: Yes: WNL Edema: No Peripheral Pulses WNL: Yes Peripheral Pulses: Left Radial: 2+, Right Radial: 2+, Left Doralis Pedis: 2+, Right Dorsalis Pedis: 2+, Left Femoral: 2+, Right Femoral: 2+ Integumentary: Yes: Other Wound/Incision: Yes: Other (-5cm stage IV decubitus sacral ulcer with white granulation tissue surrounding margins. Erythematous borders. Purulent drainage. Healed decubitus ulcer on heels BL. Several 1cm stage 1 ulcers on neck and back.) Neurological: Yes: Alert, Confusion ...Motor Strength: LUE, LLE, RUE, RLE (generalized weakness) Psychiatric: Yes: Alert, Other (confusion to place) Labs: INR, PTT INR 1.42 (0.83-1.09) H 08/10/19 20:15 Problem List - Problems (1) Afib Assessment/Plan: EKG on admission :sinus tachycardia, no st elevations or t wave inversions c/w home eliquis 2.5mg BID Code(s): I48.91 - UNSPECIFIED ATRIAL FIBRILLATION (2) Sepsis Assessment/Plan: Stage IV decubitus sacral ulcer with erythematous borders, tender to palpation. 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 Ohara following pt MRI abd/pelvis withput evidence of osteomyelitis and no fluid collections seen vascular surgery (Dr. Solis)and no surgical intervention needed US done that showed CBD and pancreatatic duct dilation MRCP ordered and pending Code(s): A41.9 - SEPSIS, UNSPECIFIED ORGANISM Qualifiers: Sepsis type: sepsis due to unspecified organism Sepsis acute organ dysfunction status: with acute organ dysfunction Severe sepsis acute organ dysfunction type: acute renal failure Acute renal failure type: unspecified Severe sepsis shock status: without septic shock Qualified Code(s): A41.9 - Sepsis, unspecified organism; R65.20 - Severe sepsis without septic shock; N17.9 - Acute kidney failure, unspecified (3) AMILCAR (acute kidney injury) Assessment/Plan: Likely 2/2 sepsis BUN/Cr: 55.9, 2.2-on admission (baseline Cr: 1.4) continue to monitor kidney function Avoid nephrotoxic agents Code(s): N17.9 - ACUTE KIDNEY FAILURE, UNSPECIFIED (4) Diabetes Code(s): E11.9 - TYPE 2 DIABETES MELLITUS WITHOUT COMPLICATIONS Qualifiers: Diabetes mellitus type: type 2 Diabetes mellitus care home insulin use: with keno terminal operator use Diabetes mellitus complication status: with skin complications Diabetes mellitus complication detail: with foot ulcer Qualified Code(s): E11.621 - Type 2 diabetes mellitus with foot ulcer; L97.509 - Non-pressure chronic ulcer of other part of unspecified foot with unspecified severity; Z79.4 - correction (current) use of insulin (5) HLD (hyperlipidemia) Assessment/Plan: diet controlled at home Code(s): E78.5 - HYPERLIPIDEMIA, UNSPECIFIED (6) HTN (hypertension) Assessment/Plan: c/w inderal Code(s): I10 - ESSENTIAL (PRIMARY) HYPERTENSION Qualifiers: Hypertension type: essential hypertension Qualified Code(s): I10 - Essential (primary) hypertension (7) Stage 4 skin ulcer of sacral region Assessment/Plan: Stage IV decubitus sacral ulcer with erythematous borders, tender to palpation. Code(s): L98.429 - NON-PRESSURE CHRONIC ULCER OF BACK WITH UNSPECIFIED SEVERITY (8) Prophylactic measure Assessment/Plan: [facility] Code(s): Z29.9 - ENCOUNTER FOR PROPHYLACTIC MEASURES, UNSPECIFIED Visit type - Emergency Visit Emergency Visit: Yes ED Registration Date: 08/10/19 Care time: The patient presented to the Emergency Department on the above date and was hospitalized for further evaluation of their emergent condition. - New Patient This patient is new to me today: No - Critical Care Critical Care patient: No - Discharge Referral Referred to [facility] Med P.C.: No
[2019-08-11 07:48] LABS: BASO % 0.4 % (0-2.0); EOS % 0.6 % (0-4.5); HEMATOCRIT 25.8 % (32.4-45.2); HEMOGLOBIN 8.1 GM/dL (10.7-15.3); LYMPH % 8.5 % (8-40); MCH 25.2 pg (25.7-33.7); MCHC 31.5 g/dl (32.0-36.0); MONO % 9.7 % (3.8-10.2); NEUT % 80.8 % (42.8-82.8); PLATELET COUNT 236 K/MM3 (134-434); RBC 3.23 M/mm3 (3.60-5.2); RDW 14.7 % (11.6-15.6); WHITE BLOOD COUNT 11.6 K/mm3 (4.0-10.0)
[2019-08-11 07:57] LABS: ALBUMIN 1.9 g/dl (3.4-5.0); BILIRUBIN,TOTAL 0.3 mg/dL (0.2-1); BLOOD UREA NITROGEN 52.2 mg/dL (7-18); CALCIUM 8.5 mg/dL (8.5-10.1); CREATININE 2.2 mg/dL (0.55-1.3); POTASSIUM 3.8 mmol/L (3.5-5.1); TOT PROT 6.2 g/dl (6.4-8.2)
[2019-08-11 09:18] LABS: MAGNESIUM 2.3 mg/dL (1.8-2.4)
[2019-08-11] MEDS ORDERED: LORazepam 1 MG TABLET PO SCH (10:00)
[2019-08-11] MEDS ORDERED: PIPERACILLIN/TAZOBACTAM 3.375 GM VIAL IVPB ONE (11:02)
[2019-08-11] MEDS ORDERED: DEXTROSE 5%-WATER - 50 ML IVPB ONE ×2 (11:02→17:36)
[2019-08-11] MEDS: APIXABAN 2.5 MG TABLET PO SCH ×2 (11:15→23:57)
[2019-08-11] MEDS: risperiDONE 0.25 MG TABLET (FP) PO SCH ×2 (11:16→23:57)
--- NOTE | 2019-08-11 11:23 | PN ---
Progress Note (short form) - Note Progress Note: Vascular surgery: The patient is a 74 yo female who was brought to the ER for evaluation of fever. She was found to be tachycardic and was admitted being treated for urosepsis. The patient states that she has has the ulcer for approximately 1 year and wanted us to leave it alone. PMHX: HTN, DM, a fib(on eliquis), quadriplegia, sacal ulcer. Vital Signs Period Temp Pulse Resp BP Sys/Uribe Pulse Ox Last 24 Hr 99 F-103.6 F 98-131 18-24 115-141/47-71 95-100 CBC, BMP 08/11/19 06:30 08/11/19 06:30 GEN: Alert and answers questions Sacum: 2 x3 sacal wound with center/fibrinous exudate, No surrounding erythema or drainage noted. Borders paxton. Think layer of granulation tissue at base of wound covering sacrum. No undermining. A/p: 74 yo female with stage 3 chronic wound, no evidence of drainage infection -D/w Dr. Solis, continue local wound care -Reposition every two hours while in bed -Air mattress recommended -Use drawsheets and Trendelenburg when repositioning to reduce friction and shear -Manage incontinence via timely cleansing, use of appropriate incontinence disposables and use of barrier ointment to intact skin -Ensure adequate hydration/nutrition, supplementation per primary team -Ensure off-loading to all bony areas (heels, ankles, hips and tailbone) with Allevyn/Optifoam -Clean open wounds with normal saline and apply santyl with wet to dry/allevyn daily
--- NOTE | 2019-08-11 12:37 | EKG ---
Test Reason : Blood Pressure : / mmHG Vent. Rate : 101 BPM Atrial Rate : 101 BPM P-R Int : 160 ms QRS Dur : 076 ms QT Int : 344 ms P-R-T Axes : 077 038 062 degrees QTc Int : 446 ms SINUS TACHYCARDIA POSSIBLE LEFT ATRIAL ENLARGEMENT BORDERLINE ECG WHEN COMPARED WITH ECG OF 30-JUL-2018 15:02, NO SIGNIFICANT CHANGE WAS FOUND Confirmed by BEAU PYLE MD ([id number]) on 08/11/2019 12:37:24 PM Referred By: Confirmed By:BEAU PYLE MD
--- NOTE | 2019-08-11 13:11 | CON.ID ---
Consult Consult Specialty:: infectious diseases Referred by:: Marsha Reason for Consultation:: wounds on the back,sepsis - History of Present Illness Chief Complaint: sepsi History of Present Illness: 4 year old female with PMH of HTN, DM2, HLD, chronic Afib (on eliquis), stage IV decubitus sacral ulcer, functional quadriplegia BIBEMS from [facility] for anemia (Hgb 8.1). Pt has complained of mild abdominal discomfort and decreased appetite over the past 2 days. Also notes subjective fevers and chills (unknown how high). Blood work was done at nursing facility today and Hgb was 8.1, so she was brought into the ED. Upon arrival, pt was tachycardic at 129, febrile at 103.6. She denies any nausea, vomiting, chest pain, SOB, urinary symptoms, headaches. above history taken from the charts as patient is not able to give proper hstory at the moment though patient is awake and is following commands ,but drifting off into sleep pt has had multiple hospitalizations for infectious ulcers requiring extensive debridement and IV abx treatment. Wounds in past have grown VRE, MRSA , proteus mirabilis, morganella morganii, pseudomonas, citrobacter - History Source History Provided By: Medical Record Limitations to Obtaining History: Clinical Condition - Past Medical History Cardio/Vascular: Yes: HTN, Hyperlipdemia Hepatobiliary: Yes: Cholelithiasis, Other (chronically dilated CBD) Renal/: Yes: Other ...LMP Comment: unknown ...: No Psych: Yes: Bipolar Endocrine: Yes: Diabetes Mellitus - Alcohol/Substance Use Hx Alcohol Use: No History of Substance Use: reports: None - Smoking History Smoking history: Former smoker Have you smoked in the past 12 months: No If you are a former smoker, when did you quit?: 5 years ago - Social History Usual Living Arrangement: Senior Care ADL: Support Services Occupation: retired History of Recent Travel: No Home Medications - Allergies Allergies/Adverse Reactions: Allergies Allergy/AdvReac Type Severity Reaction Status Date / Time No Known Allergies Allergy Verified 08/10/19 18:14 - Home Medications Home Medications: Ambulatory Orders Apixaban [Eliquis -] 2.5 mg PO BID 05/19/18 Ferrous Sulfate [Feosol] 1 tab PO DAILY 05/19/18 LORazepam [Ativan] 1 mg PO BID 05/19/18 Mvit,Calcium,Iron,Mins/A.acids [[place] Double Strength Capsule] 1 each PO DAILY 05/19/18 Propranolol HCl 20 mg PO BID 05/19/18 Risperidone [Risperdal -] 0.25 mg PO BID 05/19/18 Insulin (Levemir) [Levemir Vial] 6 units SQ BID@0700,2200 units 06/26/18 Melatonin 3 mg PO DAILY 08/11/19 Sitagliptin Phosphate [Januvia] 25 mg PO DAILY 08/11/19 Review of Systems Unable to obtain ROS, reason: unable to obtain Physical Exam Vital Signs: Vital Signs Temperature 99 F 08/11/19 11:18 Pulse Rate 102 H 08/11/19 11:18 Respiratory Rate 20 08/11/19 11:18 Blood Pressure 122/47 L 08/11/19 11:18 O2 Sat by Pulse Oximetry (%) 100 08/11/19 09:00 Constitutional: Yes: Well Nourished, Calm Eyes: Yes: Conjunctiva Clear HENT: Yes: Atraumatic, Normocephalic Neck: Yes: Supple, Trachea Midline Cardiovascular: Yes: Tachycardia, Pulse Irregular Respiratory: Yes: Regular, CTA Bilaterally Gastrointestinal: Yes: Normal Bowel Sounds, Soft Musculoskeletal: Yes: Other Extremities: Yes: Other (contracted) Wound/Incision: Yes: Other (decubitus ulcer--wound is clean) Neurological: Yes: Weakness, Other Psychiatric: Yes: Alert Labs: CBC, BMP 08/11/19 06:30 08/11/19 06:30 Imaging - Results Chest X-ray: Report Reviewed, Image Reviewed Ultrasound: Report Reviewed, Image Reviewed Assessment/Plan patient with multiple medical problems coming to the hospital with fever,sepsis as far as i think this could be from her uti the wound on the sacrum is clean and i do not think that is the source of infection we will continue zosyn for now await for the cx reports hydration rest as per the team wound care
[2019-08-11 15:09] VITALS: BMI 26.9
[2019-08-11] MEDS ORDERED: PIPERACILLIN/TAZOBACTAM 2.25 GM VIAL IVPB ONE (17:35)
[2019-08-11] MEDS: PIPERACILLIN/TAZOB 2.25 GM 2.25 GM in DEXTROSE 5%-WATER - 50 ML IVPB SCH (18:30)
[2019-08-11] MEDS ORDERED: ACETAMINOPHEN 325 MG TABLET (FP) PO ONE (23:16)
[2019-08-11] MEDS: LORazepam 0.5 MG TABLET PO SCH (23:56)
[2019-08-12] MEDS ORDERED: PIPERACILLIN/TAZOBACTAM 2.25 GM VIAL IVPB ONE ×3 (01:02→17:00)
[2019-08-12] MEDS ORDERED: DEXTROSE 5%-WATER - 50 ML IVPB ONE ×3 (01:03→17:00)
[2019-08-12] MEDS: SODIUM CHLORIDE 1,000 ML IV SCH (02:31)
[2019-08-12] MEDS: PIPERACILLIN/TAZOB 2.25 GM 2.25 GM in DEXTROSE 5%-WATER - 50 ML IVPB SCH ×3 (02:39→17:03)
[2019-08-12] MEDS: COLLAGENASE CLOSTRIDIUM HIST. 30 GRAMS TUBE TP SCH ×2 (02:48→12:03)
[2019-08-12] MEDS: INSULIN SLIDING SCALE (NOVOLOG) 1 VIAL SQ SCH ×3 (06:17→16:31)
[2019-08-12] MEDS: INSULIN (LEVEMIR) 100 UNITS/ML UNITS SQ SCH ×2 (06:19→22:28)
--- NOTE | 2019-08-12 08:05 | PN ---
Progress Note, Physician Chief Complaint: Patient states she is very tired. Having right upper quadrant intermittent pain History of Present Illness: Ms. Estrada is a 74 year old female with PMH of HTN, DM2, HLD, chronic Afib (on eliquis), stage IV decubitus sacral ulcer, functional quadriplegia BIBEMS from [facility] for anemia (Hgb 8.1). Pt's daughter is at bedside to assist with history. Pt has complained of mild abdominal discomfort and decreased appetite over the past 2 days. Also notes subjective fevers and chills (unknown how high). Blood work was done at nursing facility today and Hgb was 8.1, so she was brought into the ED. Upon arrival, pt was tachycardic at 129, febrile at 103.6. She denies any nausea, vomiting, chest pain, SOB, urinary symptoms, headaches. - Current Medication List Current Medications: Active Medications Apixaban (Eliquis -) 2.5 mg PO BID [facility] Last Admin: 08/11/19 23:57 Dose: 2.5 mg Collagenase (Santyl -) 1 applic TP DAILY [facility]; Protocol Last Admin: 08/12/19 02:48 Dose: 1 applic Sodium Chloride (Normal Saline -) 1,000 mls @ 100 mls/hr IV ASDIR [facility] Last Admin: 08/12/19 02:31 Dose: Not Given Piperacillin Sod/Tazobactam (Sod 2.25 gm/ Dextrose) 50 mls @ 100 mls/hr IVPB Q8H-IV [facility]; Protocol Last Admin: 08/12/19 02:39 Dose: 100 mls/hr Insulin Aspart (Novolog Vial Sliding Scale -) 1 vial SQ TIDAC [facility]; Protocol Last Admin: 08/12/19 06:17 Dose: Not Given Insulin Detemir (Levemir Vial) 6 units SQ BID@0700,2200 [facility] Last Admin: 08/12/19 06:19 Dose: 6 unit Lorazepam (Ativan -) 0.5 mg PO BID [facility] Last Admin: 08/11/19 23:56 Dose: 0.5 mg Propranolol HCl (Inderal -) 20 mg PO BID [facility] Last Admin: 08/11/19 23:56 Dose: 20 mg Risperidone (Risperdal -) 0.25 mg PO BID [facility] Last Admin: 08/11/19 23:57 Dose: 0.25 mg - Objective Vital Signs: Vital Signs Temperature 99.4 F 08/12/19 06:00 Pulse Rate 83 08/12/19 06:00 Respiratory Rate 20 08/12/19 06:00 Blood Pressure 99/43 L 08/12/19 06:00 O2 Sat by Pulse Oximetry (%) 100 08/11/19 21:00 Additional Findings/Remarks: Constitutional: Yes: Well Nourished, No Distress, Calm Eyes: Yes: WNL, Conjunctiva Clear HENT: Yes: WNL, Atraumatic, Normocephalic Neck: Yes: WNL, Supple, Trachea Midline Cardiovascular: Yes: Regular Rate and Rhythm, Tachycardia (HR 100) Respiratory: Yes: WNL, Regular, CTA Bilaterally Gastrointestinal: Yes: Normal Bowel Sounds, Soft, Tenderness (mild TTP to RUQ) ...Rectal Exam: Yes: Deferred Genitourinary: Yes: Te[place] Present Breast(s): Yes: WNL Musculoskeletal: Yes: Muscle Weakness Extremities: Yes: WNL Edema: No Peripheral Pulses WNL: Yes Peripheral Pulses: Left Radial: 2+, Right Radial: 2+, Left Doralis Pedis: 2+, Right Dorsalis Pedis: 2+, Left Femoral: 2+, Right Femoral: 2+ Integumentary: Yes: Other Wound/Incision: Yes: Other (-5cm stage IV decubitus sacral ulcer with white granulation tissue surrounding margins. Erythematous borders. Purulent drainage. Healed decubitus ulcer on heels BL. Several 1cm stage 1 ulcers on neck and back.) Neurological: Yes: Alert, Confusion ...Motor Strength: LUE, LLE, RUE, RLE (generalized weakness) Psychiatric: Yes: Alert, Other (confusion to place) Labs: CBC, BMP 08/11/19 06:30 08/11/19 06:30 INR, PTT INR 1.42 (0.83-1.09) H 08/10/19 20:15 - ....Imaging Ultrasound: Report Reviewed (US: pancretatic duct 4mm dililation , CBD 9mm) Problem List - Problems (1) Afib Assessment/Plan: EKG on admission :sinus tachycardia, no st elevations or t wave inversions c/w home eliquis 2.5mg BID Code(s): I48.91 - UNSPECIFIED ATRIAL FIBRILLATION (2) Sepsis Assessment/Plan: Stage IV decubitus sacral ulcer with erythematous borders, tender to palpation. 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 Ohara following pt MRI abd/pelvis withput evidence of osteomyelitis and no fluid collections seen vascular surgery (Dr. Solis)and no surgical intervention needed US done that showed CBD and pancreatatic duct dilation Tbil .2, LFTs nml seen by Dr Mcdaniels/[place] in the past and MRCP recommened with colonscopy and patient refused in past now agreeable, MRCP pending. SPoke with Dr Mcdaniels and Dr Nieto will see with possible plan for ERCP tmrw Code(s): A41.9 - SEPSIS, UNSPECIFIED ORGANISM Qualifiers: Sepsis type: sepsis due to unspecified organism Sepsis acute organ dysfunction status: with acute organ dysfunction Severe sepsis acute organ dysfunction type: acute renal failure Acute renal failure type: unspecified Severe sepsis shock status: without septic shock Qualified Code(s): A41.9 - Sepsis, unspecified organism; R65.20 - Severe sepsis without septic shock; N17.9 - Acute kidney failure, unspecified (3) AMILCAR (acute kidney injury) Assessment/Plan: Likely 2/2 sepsis BUN/Cr: 55.9, 2.2-on admission (baseline Cr: 1.4) trending down 2.0 with IVF continue to monitor kidney function Avoid nephrotoxic agents Code(s): N17.9 - ACUTE KIDNEY FAILURE, UNSPECIFIED (4) Diabetes Assessment/Plan: Cont home levemir 6units BID BGM AC/HS with novlog sliding scale Code(s): E11.9 - TYPE 2 DIABETES MELLITUS WITHOUT COMPLICATIONS Qualifiers: Diabetes mellitus type: type 2 Diabetes mellitus prison insulin use: with buttermaker continuous churn use Diabetes mellitus complication status: with skin complications Diabetes mellitus complication detail: with foot ulcer Qualified Code(s): E11.621 - Type 2 diabetes mellitus with foot ulcer; L97.509 - Non-pressure chronic ulcer of other part of unspecified foot with unspecified severity; Z79.4 - senior living (current) use of insulin (5) HLD (hyperlipidemia) Assessment/Plan: diet controlled at home Code(s): E78.5 - HYPERLIPIDEMIA, UNSPECIFIED (6) HTN (hypertension) Assessment/Plan: c/w inderal Code(s): I10 - ESSENTIAL (PRIMARY) HYPERTENSION Qualifiers: Hypertension type: essential hypertension Qualified Code(s): I10 - Essential (primary) hypertension (7) Stage 4 skin ulcer of sacral region Assessment/Plan: Stage IV decubitus sacral ulcer with erythematous borders, tender to palpation seen by vascular no need fro debridement c/w santayl cream reposition q 2 h speciality bed Code(s): L98.429 - NON-PRESSURE CHRONIC ULCER OF BACK WITH UNSPECIFIED SEVERITY (8) Prophylactic measure Assessment/Plan: FEN c/w IVF montior electrolytes diabetic diet DVT eliquis Dispo mainatin as inpatient DNR/DNI discharge planning back to [facility] Code(s): Z29.9 - ENCOUNTER FOR PROPHYLACTIC MEASURES, UNSPECIFIED (9) Anemia Assessment/Plan: H/H 03/17 no need for transufusion continue to trend Code(s): D64.9 - ANEMIA, UNSPECIFIED Qualifiers: Chronic kidney disease stage: unspecified stage Visit type - Emergency Visit Emergency Visit: Yes ED Registration Date: 08/10/19 Care time: The patient presented to the Emergency Department on the above date and was hospitalized for further evaluation of their emergent condition. - New Patient This patient is new to me today: No - Critical Care Critical Care patient: No - Discharge Referral Referred to [facility] No
[2019-08-12 09:09] LABS: MAGNESIUM 2.4 mg/dL (1.8-2.4)
[2019-08-12] MEDS ORDERED: PT OWN MED DRAWER 7, Y5N ONE ×2 (09:14→21:19)
[2019-08-12] MEDS: risperiDONE 0.25 MG TABLET (FP) PO SCH ×2 (10:32→22:25)
[2019-08-12] MEDS: LORazepam 0.5 MG TABLET PO SCH ×2 (10:32→22:24)
[2019-08-12] MEDS: APIXABAN 2.5 MG TABLET PO SCH ×2 (10:32→22:24)
[2019-08-12 10:38] LABS: BASO % 0.6 % (0-2.0); EOS % 4.1 % (0-4.5); HEMATOCRIT 24.5 % (32.4-45.2); HEMOGLOBIN 7.7 GM/dL (10.7-15.3); LYMPH % 16.1 % (8-40); MCH 25.2 pg (25.7-33.7); MCHC 31.2 g/dl (32.0-36.0); MEAN CELL VOLUME 80.8 fl (80-96); MEAN PLT VOLUME 9.3 fl (7.5-11.1); NEUT % 65.2 % (42.8-82.8); PLATELET COUNT 288 K/MM3 (134-434); RBC 3.04 M/mm3 (3.60-5.2); RDW 14.6 % (11.6-15.6); WHITE BLOOD COUNT 6.5 K/mm3 (4.0-10.0)
[2019-08-12] MEDS ORDERED: LIDOCAINE HCL 1%, 10 MG/ML (20ML VIAL) ONE (10:56)
[2019-08-12 11:06] LABS: ALBUMIN 1.7 g/dl (3.4-5.0); BILIRUBIN,TOTAL 0.2 mg/dL (0.2-1); BLOOD UREA NITROGEN 46.4 mg/dL (7-18); CALCIUM 8.6 mg/dL (8.5-10.1); POTASSIUM 3.7 mmol/L (3.5-5.1); TOT PROT 5.8 g/dl (6.4-8.2)
[2019-08-12] MEDS ORDERED: INSULIN (NOVOLOG) ASPART 100 UNITS/ML 10ML VIAL ONE ×2 (11:39→21:20)
[2019-08-12] MEDS ORDERED: PIPERACILLIN/TAZOB 3.375 GM 3.375 GM in DEXTROSE 5%-WATER - 50 ML IVPB ONE (13:10)
[2019-08-12 13:46] LABS: ANISOCYTOSIS 0; MACROCYTOSIS 0; PLATELET ESTIMATE NORMAL
[2019-08-12] MEDS ORDERED: HYDROmorphone HCl 2 MG/ML VIAL IVPB ONE (14:42)
--- NOTE | 2019-08-12 15:57 | PN ---
Progress Note, Physician History of Present Illness: better today improving - Current Medication List Current Medications: Active Medications Apixaban (Eliquis -) 2.5 mg PO BID [facility] Last Admin: 08/12/19 10:32 Dose: 2.5 mg Collagenase (Santyl -) 1 applic TP DAILY [facility]; Protocol Last Admin: 08/12/19 12:03 Dose: 1 applic Sodium Chloride (Normal Saline -) 1,000 mls @ 100 mls/hr IV ASDIR [facility] Last Admin: 08/12/19 02:31 Dose: Not Given Piperacillin Sod/Tazobactam (Sod 2.25 gm/ Dextrose) 50 mls @ 100 mls/hr IVPB Q8H-IV [facility]; Protocol Last Admin: 08/12/19 10:31 Dose: 100 mls/hr Insulin Aspart (Novolog Vial Sliding Scale -) 1 vial SQ TIDAC [facility]; Protocol Last Admin: 08/12/19 12:03 Dose: 4 units Insulin Detemir (Levemir Vial) 6 units SQ BID@0700,2200 [facility] Last Admin: 08/12/19 06:19 Dose: 6 unit Lorazepam (Ativan -) 0.5 mg PO BID [facility] Last Admin: 08/12/19 10:32 Dose: 0.5 mg Propranolol HCl (Inderal -) 20 mg PO BID [facility] Last Admin: 08/12/19 10:32 Dose: 20 mg Risperidone (Risperdal -) 0.25 mg PO BID [facility] Last Admin: 08/12/19 10:32 Dose: 0.25 mg - Objective Vital Signs: Vital Signs Temperature 98.9 F 08/12/19 14:00 Pulse Rate 81 08/12/19 14:00 Respiratory Rate 20 08/12/19 14:00 Blood Pressure 113/58 L 08/12/19 14:00 O2 Sat by Pulse Oximetry (%) 100 08/11/19 21:00 Constitutional: Yes: No Distress, Calm Cardiovascular: Yes: S1, S2 Respiratory: Yes: Regular, CTA Bilaterally Gastrointestinal: Yes: Normal Bowel Sounds, Soft Musculoskeletal: Yes: WNL Extremities: Yes: Other Neurological: Yes: Alert, Oriented Psychiatric: Yes: Alert Labs: CBC, BMP 08/12/19 06:50 08/12/19 06:50 INR, PTT INR 1.42 (0.83-1.09) H 08/10/19 20:15 Assessment/Plan Problem List - Problems (1) Afib Code(s): I48.91 - UNSPECIFIED ATRIAL FIBRILLATION (2) Sepsis Code(s): A41.9 - SEPSIS, UNSPECIFIED ORGANISM Qualifiers: Sepsis type: sepsis due to unspecified organism Sepsis acute organ dysfunction status: with acute organ dysfunction Severe sepsis acute organ dysfunction type: acute renal failure Acute renal failure type: unspecified Severe sepsis shock status: without septic shock Qualified Code(s): A41.9 - Sepsis, unspecified organism; R65.20 - Severe sepsis without septic shock; N17.9 - Acute kidney failure, unspecified (3) AMILCAR (acute kidney injury) Code(s): N17.9 - ACUTE KIDNEY FAILURE, UNSPECIFIED (4) Diabetes Code(s): E11.9 - TYPE 2 DIABETES MELLITUS WITHOUT COMPLICATIONS Qualifiers: Diabetes mellitus type: type 2 Diabetes mellitus fci insulin use: with intermission coordinator use Diabetes mellitus complication status: with skin complications Diabetes mellitus complication detail: with foot ulcer Qualified Code(s): E11.621 - Type 2 diabetes mellitus with foot ulcer; L97.509 - Non-pressure chronic ulcer of other part of unspecified foot with unspecified severity; Z79.4 - residential (current) use of insulin (5) HLD (hyperlipidemia) Code(s): E78.5 - HYPERLIPIDEMIA, UNSPECIFIED (6) HTN (hypertension) Code(s): I10 - ESSENTIAL (PRIMARY) HYPERTENSION Qualifiers: Hypertension type: essential hypertension Qualified Code(s): I10 - Essential (primary) hypertension (7) Stage 4 skin ulcer of sacral region Code(s): L98.429 - NON-PRESSURE CHRONIC ULCER OF BACK WITH UNSPECIFIED SEVERITY plan continue current mgmt await for organism wound care rest as per the team
--- NOTE | 2019-08-12 16:29 | CON.GI ---
Consult Consult Specialty:: GI: For Dr. Mcdaniels who resumes care 08/13 Referred by:: Hospitalist Service Reason for Consultation:: dilated CBD - History of Present Illness Chief Complaint: Fevers History of Present Illness: 74F admitted to [facility] from [place] for evaluation of fevers. Patient's daughter present at bedside. Asked to evaluate as abdominal US revealed CBD 8 mm and PD 4mm. Was evaluated 06/[address] Mcdaniels. At that time he recommended cholecystectomy, however this was declined as was EGD and colonoscopy for anemia. UGIS failed to reveal gastric outlet obstruction. MRCP at that time revealed a 1cm CBD without choledocholithiasis. CBD was dilated as far back as 2013 when she was evaluated by Dr. Merrill (per Dr. Dutta's previous note). She currently denies abdominal pain. ALP was mildly elevated on admission while the remainder of her liver chemistries were normal. ALP is normal. She describes some loose bowel movements only today. She denies urinary symptomatology. Complains of lower back pain where her sacral decubitus is located. - History Source History Provided By: Patient, Family Member (Daughter present at bedside) - Past Medical History Cardio/Vascular: Yes: HTN, Hyperlipdemia Hepatobiliary: Yes: Cholelithiasis, Other (chronically dilated CBD) Renal/: Yes: Other ...LMP Comment: unknown ...: No Psych: Yes: Bipolar Endocrine: Yes: Diabetes Mellitus - Past Surgical History Additional Surgical History: removal of uterine polyps - Alcohol/Substance Use Hx Alcohol Use: No History of Substance Use: reports: None - Smoking History Smoking history: Former smoker Have you smoked in the past 12 months: No If you are a former smoker, when did you quit?: 5 years ago - Social History Usual Living Arrangement: Skilled Nursing ADL: Support Services Occupation: retired Place of : [facility] History of Recent Travel: No Home Medications - Allergies Allergies/Adverse Reactions: Allergies Allergy/AdvReac Type Severity Reaction Status Date / Time No Known Allergies Allergy Verified 08/10/19 18:14 - Home Medications Home Medications: Ambulatory Orders Apixaban [Eliquis -] 2.5 mg PO BID 05/19/18 Ferrous Sulfate [Feosol] 1 tab PO DAILY 05/19/18 LORazepam [Ativan] 1 mg PO BID 05/19/18 Mvit,Calcium,Iron,Mins/A.acids [[place] Double Strength Capsule] 1 each PO DAILY 05/19/18 Propranolol HCl 20 mg PO BID 05/19/18 Risperidone [Risperdal -] 0.25 mg PO BID 05/19/18 Insulin (Levemir) [Levemir Vial] 6 units SQ BID@0700,2200 units 06/26/18 Melatonin 3 mg PO DAILY 08/11/19 Sitagliptin Phosphate [Januvia] 25 mg PO DAILY 08/11/19 Family Medical History Other Family History: No family history of colorectal cancer or other GI malignancy Review of Systems - Review of Systems Constitutional: reports: Fever Gastrointestinal: denies: Abdominal Pain, Constipation, Melena, Rectal Bleeding Physical Exam-GI Vital Signs: Vital Signs Temperature 98.9 F 08/12/19 14:00 Pulse Rate 81 08/12/19 14:00 Respiratory Rate 20 08/12/19 14:00 Blood Pressure 113/58 L 08/12/19 14:00 O2 Sat by Pulse Oximetry (%) 100 08/11/19 21:00 Constitutional: Yes: Calm Eyes: No: Sclera Icterus Cardiovascular: Yes: Regular Rate and Rhythm. No: Murmur Respiratory: Yes: Diminished (at bases bilaterally with poor insp effort) Gastrointestinal Inspection: No: Distention ...Auscultate: Yes: Normoactive Bowel Sounds ...Palpate: Yes: Soft. No: Hepatomegaly, Splenomegaly, Tenderness ...Percussion: No: Tympanitic ...Rectal Exam: Yes: Other (No external lesions no mases, light brown formed guaiac negative stool) Labs: CBC, BMP 08/12/19 06:50 08/12/19 06:50 INR, PTT INR 1.42 (0.83-1.09) H 08/10/19 20:15 Problem List - Problems (1) Dilated bile duct Assessment/Plan: Chronic finding. No abdominal pain. LFTs do not support obstructive cholangitis For MRCP Evaluation for alternate sources of fever per primary team. Abx per ID Code(s): K83.8 - OTHER SPECIFIED DISEASES OF BILIARY TRACT (2) Anemia Assessment/Plan: Guaiac negative on exam. Refuses EGD / colonscopy. W/U per primary team. Code(s): D64.9 - ANEMIA, UNSPECIFIED Qualifiers: Chronic kidney disease stage: unspecified stage
[2019-08-13] MEDS ORDERED: PIPERACILLIN/TAZOBACTAM 2.25 GM VIAL IVPB ONE ×3 (00:55→16:58)
[2019-08-13] MEDS ORDERED: DEXTROSE 5%-WATER - 50 ML IVPB ONE ×3 (00:56→16:58)
[2019-08-13] MEDS: PIPERACILLIN/TAZOB 2.25 GM 2.25 GM in DEXTROSE 5%-WATER - 50 ML IVPB SCH ×3 (01:52→17:41)
[2019-08-13] MEDS: SODIUM CHLORIDE 1,000 ML IV SCH ×3 (01:52→22:12)
[2019-08-13] MEDS: INSULIN SLIDING SCALE (NOVOLOG) 1 VIAL SQ SCH ×3 (06:22→17:44)
[2019-08-13] MEDS: INSULIN (LEVEMIR) 100 UNITS/ML UNITS SQ SCH ×2 (06:22→22:10)
[2019-08-13] MEDS ORDERED: INSULIN (NOVOLOG) ASPART 100 UNITS/ML 10ML VIAL ONE (06:46)
[2019-08-13] MEDS ORDERED: INSULIN (LEVEMIR) 100 UNITS/ML UNITS SQ ONE (06:46)
[2019-08-13] MEDS ORDERED: PT OWN MED DRAWER 7, Y5N ONE ×3 (06:47→20:51)
--- NOTE | 2019-08-13 08:14 | PN ---
Progress Note, Physician Chief Complaint: Patient asking to go home. No c/o abd pain History of Present Illness: Ms. Estrada is a 74 year old female with PMH of HTN, DM2, HLD, chronic Afib (on eliquis), stage IV decubitus sacral ulcer, functional quadriplegia BIBEMS from [facility] for anemia (Hgb 8.1). Pt's daughter is at bedside to assist with history. Pt has complained of mild abdominal discomfort and decreased appetite over the past 2 days. Also notes subjective fevers and chills (unknown how high). Blood work was done at nursing facility today and Hgb was 8.1, so she was brought into the ED. Upon arrival, pt was tachycardic at 129, febrile at 103.6. She denies any nausea, vomiting, chest pain, SOB, urinary symptoms, headaches. - Current Medication List Current Medications: Active Medications Apixaban (Eliquis -) 2.5 mg PO BID [facility] Last Admin: 08/12/19 22:24 Dose: 2.5 mg Collagenase (Santyl -) 1 applic TP DAILY [facility]; Protocol Last Admin: 08/12/19 12:03 Dose: 1 applic Sodium Chloride (Normal Saline -) 1,000 mls @ 100 mls/hr IV ASDIR [facility] Last Admin: 08/13/19 01:52 Dose: 100 mls/hr Piperacillin Sod/Tazobactam (Sod 2.25 gm/ Dextrose) 50 mls @ 100 mls/hr IVPB Q8H-IV [facility]; Protocol Last Admin: 08/13/19 01:52 Dose: 100 mls/hr Insulin Aspart (Novolog Vial Sliding Scale -) 1 vial SQ TIDAC [facility]; Protocol Last Admin: 08/13/19 06:22 Dose: 2 units Insulin Detemir (Levemir Vial) 6 units SQ BID@0700,2200 [facility] Last Admin: 08/13/19 06:22 Dose: 6 unit Lorazepam (Ativan -) 0.5 mg PO BID [facility] Last Admin: 08/12/19 22:24 Dose: 0.5 mg Propranolol HCl (Inderal -) 20 mg PO BID [facility] Last Admin: 08/12/19 22:24 Dose: 20 mg Risperidone (Risperdal -) 0.25 mg PO BID [facility] Last Admin: 08/12/19 22:25 Dose: 0.25 mg - Objective Vital Signs: Vital Signs Temperature 99.9 F H 08/13/19 06:00 Pulse Rate 87 08/13/19 06:00 Respiratory Rate 20 08/13/19 06:00 Blood Pressure 125/42 L 08/13/19 06:00 O2 Sat by Pulse Oximetry (%) 100 08/12/19 21:00 Additional Findings/Remarks: Constitutional: Yes: Well Nourished, No Distress, Calm Eyes: Yes: WNL, Conjunctiva Clear HENT: Yes: WNL, Atraumatic, Normocephalic Neck: Yes: WNL, Supple, Trachea Midline Cardiovascular: Yes: Regular Rate and Rhythm, Tachycardia (HR 100) Respiratory: Yes: WNL, Regular, CTA Bilaterally Gastrointestinal: Yes: Normal Bowel Sounds, Soft, Tenderness (mild TTP to RUQ) ...Rectal Exam: Yes: Deferred Genitourinary: Yes: Tejeda Present Breast(s): Yes: WNL Musculoskeletal: Yes: Muscle Weakness Extremities: Yes: WNL Edema: No Peripheral Pulses WNL: Yes Peripheral Pulses: Left Radial: 2+, Right Radial: 2+, Left Doralis Pedis: 2+, Right Dorsalis Pedis: 2+, Left Femoral: 2+, Right Femoral: 2+ Integumentary: Yes: Other Wound/Incision: Yes: Other (-5cm stage IV decubitus sacral ulcer with white granulation tissue surrounding margins. Erythematous borders. Purulent drainage. Healed decubitus ulcer on heels BL. Several 1cm stage 1 ulcers on neck and back.) Neurological: Yes: Alert, Confusion ...Motor Strength: LUE, LLE, RUE, RLE (generalized weakness) Psychiatric: Yes: Alert, Other (confusion to place) Labs: CBC, BMP 08/12/19 06:50 08/12/19 06:50 INR, PTT INR 1.42 (0.83-1.09) H 08/10/19 20:15 Problem List - Problems (1) Afib Assessment/Plan: EKG on admission :sinus tachycardia, no st elevations or t wave inversions c/w home eliquis 2.5mg BID Code(s): I48.91 - UNSPECIFIED ATRIAL FIBRILLATION (2) Sepsis Assessment/Plan: Stage IV decubitus sacral ulcer with erythematous borders, tender to palpation. UA: 1+ LE, 2+ blood, 2+ protein Initial lactic acid: 1.9, f/u lactic 0.9 ESR: 119, CRP: 23.5 wound with pseudomonas, VRE, MSSA urine Cx VRE and blood Cx neg hx of MRSA in past, MRSA swab negative c/w thad now Dr. Ohara following pt MRI abd/pelvis withput evidence of osteomyelitis and no fluid collections seen vascular surgery (Dr. Solis)and no surgical intervention needed US done that showed CBD and pancreatatic duct dilation MRCP ordered and pending Code(s): A41.9 - SEPSIS, UNSPECIFIED ORGANISM Qualifiers: Sepsis type: sepsis due to unspecified organism Sepsis acute organ dysfunction status: with acute organ dysfunction Severe sepsis acute organ dysfunction type: acute renal failure Acute renal failure type: unspecified Severe sepsis shock status: without septic shock Qualified Code(s): A41.9 - Sepsis, unspecified organism; R65.20 - Severe sepsis without septic shock; N17.9 - Acute kidney failure, unspecified (3) AMILCAR (acute kidney injury) Assessment/Plan: Likely 2/2 sepsis BUN/Cr: 55/ 2.2-on admission (baseline Cr: 1.4) Now 1.7 continue to monitor kidney function Avoid nephrotoxic agents Code(s): N17.9 - ACUTE KIDNEY FAILURE, UNSPECIFIED (4) Diabetes Assessment/Plan: Cont home levemir 6units BID BGM AC/HS with novlog sliding scale Code(s): E11.9 - TYPE 2 DIABETES MELLITUS WITHOUT COMPLICATIONS Qualifiers: Diabetes mellitus type: type 2 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: with group home use Diabetes mellitus complication status: with skin complications Diabetes mellitus complication detail: with foot ulcer Qualified Code(s): E11.621 - Type 2 diabetes mellitus with foot ulcer; L97.509 - Non-pressure chronic ulcer of other part of unspecified foot with unspecified severity; 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 (5) HLD (hyperlipidemia) Assessment/Plan: diet controlled at home Code(s): E78.5 - HYPERLIPIDEMIA, UNSPECIFIED (6) HTN (hypertension) Assessment/Plan: c/w inderal Code(s): I10 - ESSENTIAL (PRIMARY) HYPERTENSION Qualifiers: Hypertension type: essential hypertension Qualified Code(s): I10 - Essential (primary) hypertension (7) Stage 4 skin ulcer of sacral region Assessment/Plan: Stage IV decubitus sacral ulcer with erythematous borders, tender to palpation. Code(s): L98.429 - NON-PRESSURE CHRONIC ULCER OF BACK WITH UNSPECIFIED SEVERITY (8) Prophylactic measure Assessment/Plan: FEN Code(s): Z29.9 - ENCOUNTER FOR PROPHYLACTIC MEASURES, UNSPECIFIED (9) Functional quadriplegia Assessment/Plan: patient bedbound supportive care turn reposition q2 h Code(s): R53.2 - FUNCTIONAL QUADRIPLEGIA Visit type - Emergency Visit Emergency Visit: Yes ED Registration Date: 08/10/19 Care time: The patient presented to the Emergency Department on the above date and was hospitalized for further evaluation of their emergent condition. - New Patient This patient is new to me today: No - Critical Care Critical Care patient: No - Discharge Referral Referred to [facility] Med P.C.: No
[2019-08-13 08:35] LABS: BASO % 0.5 % (0-2.0); EOS % 2.9 % (0-4.5); HEMATOCRIT 24.5 % (32.4-45.2); HEMOGLOBIN 7.8 GM/dL (10.7-15.3); LYMPH % 17.3 % (8-40); MCH 25.3 pg (25.7-33.7); MCHC 31.7 g/dl (32.0-36.0); MEAN CELL VOLUME 79.6 fl (80-96); MEAN PLT VOLUME 8.6 fl (7.5-11.1); MONO % 11.7 % (3.8-10.2); NEUT % 67.6 % (42.8-82.8); PLATELET COUNT 303 K/MM3 (134-434); RBC 3.08 M/mm3 (3.60-5.2); RDW 14.9 % (11.6-15.6); WHITE BLOOD COUNT 5.6 K/mm3 (4.0-10.0)
[2019-08-13 08:46] LABS: ALBUMIN 1.9 g/dl (3.4-5.0); BILIRUBIN,TOTAL 0.2 mg/dL (0.2-1); BLOOD UREA NITROGEN 31.3 mg/dL (7-18); CALCIUM 8.2 mg/dL (8.5-10.1); CREATININE 1.7 mg/dL (0.55-1.3); MAGNESIUM 1.9 mg/dL (1.8-2.4); POTASSIUM 3.8 mmol/L (3.5-5.1); TOT PROT 6.1 g/dl (6.4-8.2)
[2019-08-13] MEDS: APIXABAN 2.5 MG TABLET PO SCH ×2 (09:51→22:09)
[2019-08-13] MEDS: LORazepam 0.5 MG TABLET PO SCH ×2 (09:51→22:09)
--- NOTE | 2019-08-13 10:02 | PN ---
Progress Note, Physician History of Present Illness: stable no new issues - Current Medication List Current Medications: Active Medications Amino Acids (Prosource No Carb Liquid Pkt) 30 ml PO BID@0800,1730 [facility] Apixaban (Eliquis -) 2.5 mg PO BID [facility] Last Admin: 08/13/19 09:51 Dose: 2.5 mg Collagenase (Santyl -) 1 applic TP DAILY [facility]; Protocol Last Admin: 08/12/19 12:03 Dose: 1 applic Sodium Chloride (Normal Saline -) 1,000 mls @ 100 mls/hr IV ASDIR [facility] Last Admin: 08/13/19 01:52 Dose: 100 mls/hr Piperacillin Sod/Tazobactam (Sod 2.25 gm/ Dextrose) 50 mls @ 100 mls/hr IVPB Q8H-IV [facility]; Protocol Last Admin: 08/13/19 09:50 Dose: 100 mls/hr Insulin Aspart (Novolog Vial Sliding Scale -) 1 vial SQ TIDAC [facility]; Protocol Last Admin: 08/13/19 06:22 Dose: 2 units Insulin Detemir (Levemir Vial) 6 units SQ BID@0700,2200 [facility] Last Admin: 08/13/19 06:22 Dose: 6 unit Lorazepam (Ativan -) 0.5 mg PO BID [facility] Last Admin: 08/13/19 09:51 Dose: 0.5 mg Propranolol HCl (Inderal -) 20 mg PO BID [facility] Last Admin: 08/12/19 22:24 Dose: 20 mg Risperidone (Risperdal -) 0.25 mg PO BID [facility] Last Admin: 08/12/19 22:25 Dose: 0.25 mg - Objective Vital Signs: Vital Signs Temperature 99.9 F H 08/13/19 06:00 Pulse Rate 87 08/13/19 06:00 Respiratory Rate 20 08/13/19 06:00 Blood Pressure 125/42 L 08/13/19 06:00 O2 Sat by Pulse Oximetry (%) 100 08/12/19 21:00 Constitutional: Yes: No Distress, Calm Cardiovascular: Yes: S1, S2 Respiratory: Yes: Regular, CTA Bilaterally Gastrointestinal: Yes: Normal Bowel Sounds, Soft Musculoskeletal: Yes: WNL Extremities: Yes: Other Wound/Incision: Yes: Dressing Dry and Intact Neurological: Yes: Alert, Oriented Psychiatric: Yes: Alert, Oriented Labs: CBC, BMP 08/13/19 07:15 08/13/19 06:00 INR, PTT INR 1.42 (0.83-1.09) H 08/10/19 20:15 Assessment/Plan Problem List - Problems (1) Afib Code(s): I48.91 - UNSPECIFIED ATRIAL FIBRILLATION (2) Sepsis Code(s): A41.9 - SEPSIS, UNSPECIFIED ORGANISM Qualifiers: Sepsis type: sepsis due to unspecified organism Sepsis acute organ dysfunction status: with acute organ dysfunction Severe sepsis acute organ dysfunction type: acute renal failure Acute renal failure type: unspecified Severe sepsis shock status: without septic shock Qualified Code(s): A41.9 - Sepsis, unspecified organism; R65.20 - Severe sepsis without septic shock; N17.9 - Acute kidney failure, unspecified (3) AMILCAR (acute kidney injury) Code(s): N17.9 - ACUTE KIDNEY FAILURE, UNSPECIFIED (4) Diabetes Code(s): E11.9 - TYPE 2 DIABETES MELLITUS WITHOUT COMPLICATIONS Qualifiers: Diabetes mellitus type: type 2 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: with long goods drier use Diabetes mellitus complication status: with skin complications Diabetes mellitus complication detail: with foot ulcer Qualified Code(s): E11.621 - Type 2 diabetes mellitus with foot ulcer; L97.509 - Non-pressure chronic ulcer of other part of unspecified foot with unspecified severity; Z79.4 - roasterman (current) use of insulin (5) HLD (hyperlipidemia) Code(s): E78.5 - HYPERLIPIDEMIA, UNSPECIFIED (6) HTN (hypertension) Code(s): I10 - ESSENTIAL (PRIMARY) HYPERTENSION Qualifiers: Hypertension type: essential hypertension Qualified Code(s): I10 - Essential (primary) hypertension (7) Stage 4 skin ulcer of sacral region Code(s): L98.429 - NON-PRESSURE CHRONIC ULCER OF BACK WITH UNSPECIFIED SEVERITY plan continue current mgmt await for organism wound care rest as per the team
[2019-08-13] MEDS: risperiDONE 0.25 MG TABLET (FP) PO SCH ×2 (12:14→22:11)
[2019-08-13] MEDS: COLLAGENASE CLOSTRIDIUM HIST. 30 GRAMS TUBE TP SCH (15:43)
[2019-08-13] MEDS: AMINO ACIDS/PROTEIN HYDROLYS 30 ML LIQUID.PKT PO SCH (17:41)
[2019-08-14] MEDS ORDERED: DEXTROSE 5%-WATER - 50 ML IVPB ONE ×3 (02:44→18:39)
[2019-08-14] MEDS ORDERED: PIPERACILLIN/TAZOBACTAM 2.25 GM VIAL IVPB ONE ×3 (02:44→18:38)
[2019-08-14] MEDS: PIPERACILLIN/TAZOB 2.25 GM 2.25 GM in DEXTROSE 5%-WATER - 50 ML IVPB SCH ×3 (02:57→19:48)
[2019-08-14] MEDS: SODIUM CHLORIDE 1,000 ML IV SCH ×2 (06:11→07:05)
[2019-08-14] MEDS: INSULIN (LEVEMIR) 100 UNITS/ML UNITS SQ SCH ×2 (06:15→21:49)
[2019-08-14] MEDS: INSULIN SLIDING SCALE (NOVOLOG) 1 VIAL SQ SCH ×3 (06:16→18:30)
[2019-08-14] MEDS ORDERED: INSULIN (NOVOLOG) ASPART 100 UNITS/ML 10ML VIAL ONE (06:32)
--- NOTE | 2019-08-14 08:08 | PN ---
Progress Note, Physician Chief Complaint: Patient c.o thirst, asking to go home. No c/o abd pain today History of Present Illness: Ms. Estrada is a 74 year old female with PMH of HTN, DM2, HLD, chronic Afib (on eliquis), stage IV decubitus sacral ulcer, functional quadriplegia BIBEMS from [facility] for anemia (Hgb 8.1). Pt's daughter is at bedside to assist with history. Pt has complained of mild abdominal discomfort and decreased appetite over the past 2 days. Also notes subjective fevers and chills (unknown how high). Blood work was done at nursing facility today and Hgb was 8.1, so she was brought into the ED. Upon arrival, pt was tachycardic at 129, febrile at 103.6. She denies any nausea, vomiting, chest pain, SOB, urinary symptoms, headaches. - Current Medication List Current Medications: Active Medications Amino Acids (Prosource No Carb Liquid Pkt) 30 ml PO BID@0800,1730 [facility] Last Admin: 08/13/19 17:41 Dose: 30 ml Apixaban (Eliquis -) 2.5 mg PO BID [facility] Last Admin: 08/13/19 22:09 Dose: 2.5 mg Collagenase (Santyl -) 1 applic TP DAILY [facility]; Protocol Last Admin: 08/13/19 15:43 Dose: 1 applic Sodium Chloride (Normal Saline -) 1,000 mls @ 100 mls/hr IV ASDIR [facility] Last Admin: 08/14/19 06:11 Dose: Not Given Piperacillin Sod/Tazobactam (Sod 2.25 gm/ Dextrose) 50 mls @ 100 mls/hr IVPB Q8H-IV [facility]; Protocol Last Admin: 08/14/19 02:57 Dose: 100 mls/hr Insulin Aspart (Novolog Vial Sliding Scale -) 1 vial SQ TIDAC [facility]; Protocol Last Admin: 08/14/19 06:16 Dose: Not Given Insulin Detemir (Levemir Vial) 6 units SQ BID@0700,2200 [facility] Last Admin: 08/14/19 06:15 Dose: 6 unit Lorazepam (Ativan -) 0.5 mg PO BID [facility] Last Admin: 08/13/19 22:09 Dose: 0.5 mg Propranolol HCl (Inderal -) 20 mg PO BID [facility] Last Admin: 08/13/19 22:11 Dose: 20 mg Risperidone (Risperdal -) 0.25 mg PO BID [facility] Last Admin: 08/13/19 22:11 Dose: 0.25 mg - Objective Vital Signs: Vital Signs Temperature 99.9 F H 08/14/19 02:00 Pulse Rate 89 08/14/19 02:00 Respiratory Rate 20 08/14/19 02:00 Blood Pressure 147/58 L 08/14/19 02:00 O2 Sat by Pulse Oximetry (%) 97 08/13/19 21:00 Additional Findings/Remarks: Constitutional: Yes: Well Nourished, No Distress, Calm Eyes: Yes: WNL, Conjunctiva Clear HENT: Yes: WNL, Atraumatic, Normocephalic Neck: Yes: WNL, Supple, Trachea Midline Cardiovascular: Yes: Regular Rate and Rhythm, Tachycardia (HR 100) Respiratory: Yes: WNL, Regular, CTA Bilaterally Gastrointestinal: Yes: Normal Bowel Sounds, Soft, Tenderness (mild TTP to RUQ) ...Rectal Exam: Yes: Deferred Genitourinary: Yes: Patterson Present Breast(s): Yes: WNL Musculoskeletal: Yes: Muscle Weakness Extremities: Yes: WNL Edema: No Peripheral Pulses WNL: Yes Peripheral Pulses: Left Radial: 2+, Right Radial: 2+, Left Doralis Pedis: 2+, Right Dorsalis Pedis: 2+, Left Femoral: 2+, Right Femoral: 2+ Integumentary: Yes: Other Wound/Incision: Yes: Other (-5cm stage IV decubitus sacral ulcer with white granulation tissue surrounding margins. Erythematous borders. Purulent drainage. Healed decubitus ulcer on heels BL. Several 1cm stage 1 ulcers on neck and back.) Neurological: Yes: Alert, Confusion ...Motor Strength: LUE, LLE, RUE, RLE (generalized weakness) Psychiatric: Yes: Alert, Other (confusion to place) Labs: CBC, BMP 08/13/19 07:15 08/13/19 06:00 INR, PTT INR 1.42 (0.83-1.09) H 08/10/19 20:15 Problem List - Problems (1) Afib Assessment/Plan: EKG on admission :sinus tachycardia, no st elevations or t wave inversions c/w home eliquis 2.5mg BID Code(s): I48.91 - UNSPECIFIED ATRIAL FIBRILLATION (2) Sepsis Assessment/Plan: Stage IV decubitus sacral ulcer with erythematous borders, tender to palpation. UA: 1+ LE, 2+ blood, 2+ protein Initial lactic acid: 1.9, f/u lactic 0.9 ESR: 119, CRP: 23.5 wound with pseudomonas, VRE, MSSA urine Cx VRE and blood Cx neg hx of MRSA in past, MRSA swab negative c/w zosyn , linezolid added by ID Dr. Ohara following pt MRI abd/pelvis withput evidence of osteomyelitis and no fluid collections seen vascular surgery (Dr. Solis)and no surgical intervention needed US done that showed CBD and pancreatatic duct dilation MRCP done and report pending Dr Mcdaniels following Code(s): A41.9 - SEPSIS, UNSPECIFIED ORGANISM Qualifiers: Sepsis type: sepsis due to unspecified organism Sepsis acute organ dysfunction status: with acute organ dysfunction Severe sepsis acute organ dysfunction type: acute renal failure Acute renal failure type: unspecified Severe sepsis shock status: without septic shock Qualified Code(s): A41.9 - Sepsis, unspecified organism; R65.20 - Severe sepsis without septic shock; N17.9 - Acute kidney failure, unspecified (3) AMILCAR (acute kidney injury) Assessment/Plan: Likely 2/2 sepsis BUN/Cr: 55/ 2.2-on admission (baseline Cr: 1.4) Now 1.5 continue to monitor kidney function Avoid nephrotoxic agents Code(s): N17.9 - ACUTE KIDNEY FAILURE, UNSPECIFIED (4) Diabetes Assessment/Plan: Cont home levemir 6units BID BGM AC/HS with novlog sliding scale Code(s): E11.9 - TYPE 2 DIABETES MELLITUS WITHOUT COMPLICATIONS Qualifiers: Diabetes mellitus type: type 2 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 insulin 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: with detention use Diabetes mellitus complication status: with skin complications Diabetes mellitus complication detail: with foot ulcer Qualified Code(s): E11.621 - Type 2 diabetes mellitus with foot ulcer; L97.509 - Non-pressure chronic ulcer of other part of unspecified foot with unspecified severity; Z79.4 - MCC (current) use of insulin (5) HLD (hyperlipidemia) Assessment/Plan: diet controlled at home Code(s): E78.5 - HYPERLIPIDEMIA, UNSPECIFIED (6) HTN (hypertension) Assessment/Plan: c/w inderal Code(s): I10 - ESSENTIAL (PRIMARY) HYPERTENSION Qualifiers: Hypertension type: essential hypertension Qualified Code(s): I10 - Essential (primary) hypertension (7) Stage 4 skin ulcer of sacral region Assessment/Plan: Stage IV decubitus sacral ulcer with erythematous borders, tender to palpation. Code(s): L98.429 - NON-PRESSURE CHRONIC ULCER OF BACK WITH UNSPECIFIED SEVERITY (8) Prophylactic measure Assessment/Plan: FEN Code(s): Z29.9 - ENCOUNTER FOR PROPHYLACTIC MEASURES, UNSPECIFIED (9) Functional quadriplegia Assessment/Plan: patient bedbound supportive care turn reposition q2 h Code(s): R53.2 - FUNCTIONAL QUADRIPLEGIA (10) Anemia Assessment/Plan: H/H 03/15, downtrending 1u PRBC ordered continue to trend Code(s): D64.9 - ANEMIA, UNSPECIFIED Qualifiers: Chronic kidney disease stage: unspecified stage (11) Incontinence Assessment/Plan: patterson came out last night and not reinserted given multiple sacral wounds that are infected would opt to replace patterson can try to use Purewick and if urine is not able to be contained then reinsert patterson Code(s): R32 - UNSPECIFIED URINARY INCONTINENCE Visit type - Emergency Visit Emergency Visit: Yes ED Registration Date: 08/10/19 Care time: The patient presented to the Emergency Department on the above date and was hospitalized for further evaluation of their emergent condition. - New Patient This patient is new to me today: No - Critical Care Critical Care patient: No - Discharge Referral Referred to [facility] Med P.C.: No
[2019-08-14 09:02] LABS: BASO % 0.3 % (0-2.0); HEMATOCRIT 22.5 % (32.4-45.2); HEMOGLOBIN 7.2 GM/dL (10.7-15.3); LYMPH % 15.1 % (8-40); MCH 25.2 pg (25.7-33.7); MCHC 31.9 g/dl (32.0-36.0); MEAN CELL VOLUME 79.1 fl (80-96); MEAN PLT VOLUME 8.4 fl (7.5-11.1); MONO % 12.6 % (3.8-10.2); PLATELET COUNT 333 K/MM3 (134-434); RBC 2.85 M/mm3 (3.60-5.2); RDW 14.8 % (11.6-15.6); WHITE BLOOD COUNT 6.7 K/mm3 (4.0-10.0)
[2019-08-14 09:31] LABS: ALBUMIN 1.7 g/dl (3.4-5.0); BILIRUBIN,TOTAL 0.3 mg/dL (0.2-1); BLOOD UREA NITROGEN 24.6 mg/dL (7-18); CALCIUM 8.3 mg/dL (8.5-10.1); CREATININE 1.5 mg/dL (0.55-1.3); MAGNESIUM 1.9 mg/dL (1.8-2.4); POTASSIUM 3.9 mmol/L (3.5-5.1); TOT PROT 5.7 g/dl (6.4-8.2)
[2019-08-14] MEDS ORDERED: PT OWN MED DRAWER 7, Y5N ONE ×3 (09:44→21:21)
[2019-08-14] MEDS: APIXABAN 2.5 MG TABLET PO SCH ×2 (10:02→21:49)
[2019-08-14] MEDS: LORazepam 0.5 MG TABLET PO SCH ×2 (10:02→21:49)
[2019-08-14] MEDS: AMINO ACIDS/PROTEIN HYDROLYS 30 ML LIQUID.PKT PO SCH ×2 (10:02→18:45)
[2019-08-14] MEDS: risperiDONE 0.25 MG TABLET (FP) PO SCH ×2 (10:03→21:49)
[2019-08-14] MEDS: COLLAGENASE CLOSTRIDIUM HIST. 30 GRAMS TUBE TP SCH (10:04)
--- NOTE | 2019-08-14 11:01 | PN ---
Progress Note, Physician History of Present Illness: stable no new issues - Current Medication List Current Medications: Active Medications Amino Acids (Prosource No Carb Liquid Pkt) 30 ml PO BID@0800,1730 [facility] Last Admin: 08/14/19 10:02 Dose: 30 ml Apixaban (Eliquis -) 2.5 mg PO BID [facility] Last Admin: 08/14/19 10:02 Dose: 2.5 mg Collagenase (Santyl -) 1 applic TP DAILY [facility]; Protocol Last Admin: 08/14/19 10:04 Dose: 1 applic Sodium Chloride (Normal Saline -) 1,000 mls @ 100 mls/hr IV ASDIR [facility] Last Admin: 08/14/19 07:05 Dose: 100 mls/hr Piperacillin Sod/Tazobactam (Sod 2.25 gm/ Dextrose) 50 mls @ 100 mls/hr IVPB Q8H-IV [facility]; Protocol Last Admin: 08/14/19 10:02 Dose: 100 mls/hr Insulin Aspart (Novolog Vial Sliding Scale -) 1 vial SQ TIDAC [facility]; Protocol Last Admin: 08/14/19 06:16 Dose: Not Given Insulin Detemir (Levemir Vial) 6 units SQ BID@0700,2200 [facility] Last Admin: 08/14/19 06:15 Dose: 6 unit Linezolid (Zyvox (Restricted To Id) -) 600 mg PO BID [facility] Lorazepam (Ativan -) 0.5 mg PO BID [facility] Last Admin: 08/14/19 10:02 Dose: 0.5 mg Propranolol HCl (Inderal -) 20 mg PO BID [facility] Last Admin: 08/14/19 10:03 Dose: 20 mg Risperidone (Risperdal -) 0.25 mg PO BID [facility] Last Admin: 08/14/19 10:03 Dose: 0.25 mg - Objective Vital Signs: Vital Signs Temperature 99.9 F H 08/14/19 02:00 Pulse Rate 89 08/14/19 02:00 Respiratory Rate 20 08/14/19 02:00 Blood Pressure 147/58 L 08/14/19 02:00 O2 Sat by Pulse Oximetry (%) 97 08/13/19 21:00 Constitutional: Yes: No Distress, Calm Cardiovascular: Yes: S1, S2 Respiratory: Yes: Regular, CTA Bilaterally Gastrointestinal: Yes: Normal Bowel Sounds, Soft Musculoskeletal: Yes: WNL Extremities: Yes: Other Wound/Incision: Yes: Dressing Dry and Intact Neurological: Yes: Alert, Oriented Psychiatric: Yes: Alert, Oriented Labs: CBC, BMP 08/14/19 07:30 08/14/19 07:30 INR, PTT INR 1.42 (0.83-1.09) H 08/10/19 20:15 Assessment/Plan Problem List - Problems (1) Afib Code(s): I48.91 - UNSPECIFIED ATRIAL FIBRILLATION (2) Sepsis Code(s): A41.9 - SEPSIS, UNSPECIFIED ORGANISM Qualifiers: Sepsis type: sepsis due to unspecified organism Sepsis acute organ dysfunction status: with acute organ dysfunction Severe sepsis acute organ dysfunction type: acute renal failure Acute renal failure type: unspecified Severe sepsis shock status: without septic shock Qualified Code(s): A41.9 - Sepsis, unspecified organism; R65.20 - Severe sepsis without septic shock; N17.9 - Acute kidney failure, unspecified (3) AMILCAR (acute kidney injury) Code(s): N17.9 - ACUTE KIDNEY FAILURE, UNSPECIFIED (4) Diabetes Code(s): E11.9 - TYPE 2 DIABETES MELLITUS WITHOUT COMPLICATIONS Qualifiers: Diabetes mellitus type: type 2 Diabetes mellitus penitentiary insulin use: with terminal operator use Diabetes mellitus complication status: with skin complications Diabetes mellitus complication detail: with foot ulcer Qualified Code(s): E11.621 - Type 2 diabetes mellitus with foot ulcer; L97.509 - Non-pressure chronic ulcer of other part of unspecified foot with unspecified severity; 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 (5) HLD (hyperlipidemia) Code(s): E78.5 - HYPERLIPIDEMIA, UNSPECIFIED (6) HTN (hypertension) Code(s): I10 - ESSENTIAL (PRIMARY) HYPERTENSION Qualifiers: Hypertension type: essential hypertension Qualified Code(s): I10 - Essential (primary) hypertension (7) Stage 4 skin ulcer of sacral region Code(s): L98.429 - NON-PRESSURE CHRONIC ULCER OF BACK WITH UNSPECIFIED SEVERITY plan continue current mgmt organisms noted will add zyox rest continue current mgmt wound care
[2019-08-14] MEDS: LINEZOLID 600 MG TABLET (RESTRICTED TO ID) PO SCH ×2 (12:00→21:49)
[2019-08-14] MEDS: FERROUS SO4 325 MG TABLET (FP) PO SCH (18:45)
[2019-08-15] MEDS ORDERED: PIPERACILLIN/TAZOBACTAM 2.25 GM VIAL IVPB ONE ×3 (00:16→17:42)
[2019-08-15] MEDS ORDERED: DEXTROSE 5%-WATER - 50 ML IVPB ONE ×3 (00:16→17:42)
[2019-08-15] MEDS: SODIUM CHLORIDE 1,000 ML IV SCH (01:39)
[2019-08-15] MEDS: PIPERACILLIN/TAZOB 2.25 GM 2.25 GM in DEXTROSE 5%-WATER - 50 ML IVPB SCH ×3 (01:40→18:02)
--- NOTE | 2019-08-15 02:41 | PN ---
Progress Note (short form) - Note Progress Note: GI NOte: MRCP reviewed. I see no CBD stones or obstructing lesions. Await official reading.
[2019-08-15] MEDS: INSULIN SLIDING SCALE (NOVOLOG) 1 VIAL SQ SCH ×3 (06:34→18:08)
[2019-08-15] MEDS: INSULIN (LEVEMIR) 100 UNITS/ML UNITS SQ SCH ×2 (06:34→21:10)
[2019-08-15] MEDS ORDERED: PT OWN MED DRAWER 7, Y5N ONE ×2 (06:45→20:42)
--- NOTE | 2019-08-15 07:57 | PN ---
Progress Note, Physician Chief Complaint: No c/o abd pain today. Asking to go back to [place] History of Present Illness: Ms. Estrada is a 74 year old female with PMH of HTN, DM2, HLD, chronic Afib (on eliquis), stage IV decubitus sacral ulcer, functional quadriplegia BIBEMS from [facility] for anemia (Hgb 8.1). Pt's daughter is at bedside to assist with history. Pt has complained of mild abdominal discomfort and decreased appetite over the past 2 days. Also notes subjective fevers and chills (unknown how high). Blood work was done at nursing facility today and Hgb was 8.1, so she was brought into the ED. Upon arrival, pt was tachycardic at 129, febrile at 103.6. She denies any nausea, vomiting, chest pain, SOB, urinary symptoms, headaches. - Current Medication List Current Medications: Active Medications Amino Acids (Prosource No Carb Liquid Pkt) 30 ml PO BID@0800,1730 [facility] Last Admin: 08/14/19 18:45 Dose: 30 ml Apixaban (Eliquis -) 2.5 mg PO BID [facility] Last Admin: 08/14/19 21:49 Dose: 2.5 mg Collagenase (Santyl -) 1 applic TP DAILY [facility]; Protocol Last Admin: 08/14/19 10:04 Dose: 1 applic Ferrous Sulfate (Feosol -) 325 mg PO DAILY [facility] Last Admin: 08/14/19 18:45 Dose: 325 mg Sodium Chloride (Normal Saline -) 1,000 mls @ 100 mls/hr IV ASDIR [facility] Last Admin: 08/15/19 01:39 Dose: 100 mls/hr Piperacillin Sod/Tazobactam (Sod 2.25 gm/ Dextrose) 50 mls @ 100 mls/hr IVPB Q8H-IV [facility]; Protocol Last Admin: 08/15/19 01:40 Dose: 100 mls/hr Insulin Aspart (Novolog Vial Sliding Scale -) 1 vial SQ TIDAC [facility]; Protocol Last Admin: 08/15/19 06:34 Dose: 2 units Insulin Detemir (Levemir Vial) 6 units SQ BID@0700,2200 [facility] Last Admin: 08/15/19 06:34 Dose: 6 unit Linezolid (Zyvox (Restricted To Id) -) 600 mg PO BID [facility] Last Admin: 08/14/19 21:49 Dose: 600 mg Lorazepam (Ativan -) 0.5 mg PO BID [facility] Last Admin: 08/14/19 21:49 Dose: 0.5 mg Propranolol HCl (Inderal -) 20 mg PO BID [facility] Last Admin: 08/14/19 21:49 Dose: 20 mg Risperidone (Risperdal -) 0.25 mg PO BID [facility] Last Admin: 08/14/19 21:49 Dose: 0.25 mg Sitagliptin Phosphate (Januvia -) 25 mg PO DAILY@0700 [facility] Last Admin: 08/15/19 06:34 Dose: 25 mg - Objective Vital Signs: Vital Signs Temperature 99.8 F H 08/15/19 06:34 Pulse Rate 74 08/15/19 06:34 Respiratory Rate 18 08/15/19 06:34 Blood Pressure 117/57 L 08/15/19 06:34 O2 Sat by Pulse Oximetry (%) 96 08/14/19 21:00 Additional Findings/Remarks: Constitutional: Yes: Well Nourished, No Distress, Calm Eyes: Yes: WNL, Conjunctiva Clear HENT: Yes: WNL, Atraumatic, Normocephalic Neck: Yes: WNL, Supple, Trachea Midline Cardiovascular: Yes: Regular Rate and Rhythm, Tachycardia (HR 100) Respiratory: Yes: WNL, Regular, CTA Bilaterally Gastrointestinal: Yes: Normal Bowel Sounds, Soft, Tenderness (mild TTP to RUQ) ...Rectal Exam: Yes: Deferred Genitourinary: Yes: Patterson Present Breast(s): Yes: WNL Musculoskeletal: Yes: Muscle Weakness Extremities: Yes: WNL Edema: No Peripheral Pulses WNL: Yes Peripheral Pulses: Left Radial: 2+, Right Radial: 2+, Left Doralis Pedis: 2+, Right Dorsalis Pedis: 2+, Left Femoral: 2+, Right Femoral: 2+ Integumentary: Yes: Other Wound/Incision: Yes: Other (-5cm stage IV decubitus sacral ulcer with white granulation tissue surrounding margins. Erythematous borders. Purulent drainage. Healed decubitus ulcer on heels BL. Several 1cm stage 1 ulcers on neck and back.) Neurological: Yes: Alert, Confusion ...Motor Strength: LUE, LLE, RUE, RLE (generalized weakness) Psychiatric: Yes: Alert, Other (confusion to place) Labs: CBC, BMP 08/14/19 07:30 08/14/19 07:30 INR, PTT INR 1.42 (0.83-1.09) H 08/10/19 20:15 - ....Imaging Chest X-ray: Image Reviewed (no effusions/infiltrates) Problem List - Problems (1) Afib Assessment/Plan: EKG on admission :sinus tachycardia, no st elevations or t wave inversions c/w home eliquis 2.5mg BID Code(s): I48.91 - UNSPECIFIED ATRIAL FIBRILLATION (2) Sepsis Assessment/Plan: Stage IV decubitus sacral ulcer with erythematous borders, tender to palpation. UA: 1+ LE, 2+ blood, 2+ protein Initial lactic acid: 1.9, f/u lactic 0.9 ESR: 119, CRP: 23.5 wound with pseudomonas, VRE, MSSA urine Cx VRE and blood Cx neg hx of MRSA in past, MRSA swab negative c/w zosyn , linezolid added by ID Dr. Ohara following pt MRI abd/pelvis withput evidence of osteomyelitis and no fluid collections seen vascular surgery (Dr. Solis)and no surgical intervention needed US done that showed CBD and pancreatatic duct dilation MRCP done- no CBD stones or obstructing lesions. Await official reading. Dr Mcdaniels following Code(s): A41.9 - SEPSIS, UNSPECIFIED ORGANISM Qualifiers: Sepsis type: sepsis due to unspecified organism Sepsis acute organ dysfunction status: with acute organ dysfunction Severe sepsis acute organ dysfunction type: acute renal failure Acute renal failure type: unspecified Severe sepsis shock status: without septic shock Qualified Code(s): A41.9 - Sepsis, unspecified organism; R65.20 - Severe sepsis without septic shock; N17.9 - Acute kidney failure, unspecified (3) AMILCAR (acute kidney injury) Assessment/Plan: Likely 2/2 sepsis BUN/Cr: 55/ 2.2-on admission (baseline Cr: 1.4) Now 1.5 continue to monitor kidney function Avoid nephrotoxic agents Code(s): N17.9 - ACUTE KIDNEY FAILURE, UNSPECIFIED (4) Diabetes Assessment/Plan: Cont home levemir 6 units BID BGM AC/HS with novlog sliding scale Code(s): E11.9 - TYPE 2 DIABETES MELLITUS WITHOUT COMPLICATIONS Qualifiers: Diabetes mellitus type: type 2 Diabetes mellitus adjunct faculty for medical terminology insulin use: with correction use Diabetes mellitus complication status: with skin complications Diabetes mellitus complication detail: with foot ulcer Qualified Code(s): E11.621 - Type 2 diabetes mellitus with foot ulcer; L97.509 - Non-pressure chronic ulcer of other part of unspecified foot with unspecified severity; Z79.4 - termite treater (current) use of insulin (5) HLD (hyperlipidemia) Assessment/Plan: diet controlled at home Code(s): E78.5 - HYPERLIPIDEMIA, UNSPECIFIED (6) HTN (hypertension) Assessment/Plan: c/w inderal Code(s): I10 - ESSENTIAL (PRIMARY) HYPERTENSION Qualifiers: Hypertension type: essential hypertension Qualified Code(s): I10 - Essential (primary) hypertension (7) Stage 4 skin ulcer of sacral region Assessment/Plan: Stage IV decubitus sacral ulcer with erythematous borders, tender to palpation. Code(s): L98.429 - NON-PRESSURE CHRONIC ULCER OF BACK WITH UNSPECIFIED SEVERITY (8) Prophylactic measure Assessment/Plan: [facility] Code(s): Z29.9 - ENCOUNTER FOR PROPHYLACTIC MEASURES, UNSPECIFIED (9) Functional quadriplegia Assessment/Plan: patient bedbound supportive care turn reposition q2 h Code(s): R53.2 - FUNCTIONAL QUADRIPLEGIA (10) Anemia Assessment/Plan: given 1u PRBC yesterday Hcg now 9 c/ iron continue to trend Code(s): D64.9 - ANEMIA, UNSPECIFIED Qualifiers: Chronic kidney disease stage: unspecified stage (11) Incontinence Assessment/Plan: patterson reinserted saturating bed and possibly contaminating wounds Code(s): R32 - UNSPECIFIED URINARY INCONTINENCE Visit type - Emergency Visit Emergency Visit: Yes ED Registration Date: 08/10/19 Care time: The patient presented to the Emergency Department on the above date and was hospitalized for further evaluation of their emergent condition. - New Patient This patient is new to me today: No - Critical Care Critical Care patient: No - Discharge Referral Referred to [facility] Med [facility] No
[2019-08-15 09:04] LABS: BASO % 0.4 % (0-2.0); EOS % 4.9 % (0-4.5); HEMATOCRIT 28.7 % (32.4-45.2); HEMOGLOBIN 9.2 GM/dL (10.7-15.3); LYMPH % 12.1 % (8-40); MCH 26.4 pg (25.7-33.7); MCHC 32.1 g/dl (32.0-36.0); MEAN CELL VOLUME 82.2 fl (80-96); MEAN PLT VOLUME 8.5 fl (7.5-11.1); MONO % 9.4 % (3.8-10.2); NEUT % 73.2 % (42.8-82.8); PLATELET COUNT 399 K/MM3 (134-434); RBC 3.49 M/mm3 (3.60-5.2); RDW 15.6 % (11.6-15.6); WHITE BLOOD COUNT 8.5 K/mm3 (4.0-10.0)
[2019-08-15 10:00] LABS: BILIRUBIN,TOTAL 0.4 mg/dL (0.2-1); CALCIUM 8.8 mg/dL (8.5-10.1); CREATININE 1.5 mg/dL (0.55-1.3); MAGNESIUM 1.6 mg/dL (1.8-2.4); POTASSIUM 3.8 mmol/L (3.5-5.1); TOT PROT 6.6 g/dl (6.4-8.2)
[2019-08-15] MEDS: LORazepam 0.5 MG TABLET PO SCH ×2 (10:18→21:08)
[2019-08-15] MEDS: APIXABAN 2.5 MG TABLET PO SCH ×2 (10:18→21:08)
[2019-08-15] MEDS: FERROUS SO4 325 MG TABLET (FP) PO SCH (10:18)
[2019-08-15] MEDS: AMINO ACIDS/PROTEIN HYDROLYS 30 ML LIQUID.PKT PO SCH ×2 (10:18→18:02)
[2019-08-15] MEDS: LINEZOLID 600 MG TABLET (RESTRICTED TO ID) PO SCH ×2 (10:19→21:08)
[2019-08-15] MEDS: COLLAGENASE CLOSTRIDIUM HIST. 30 GRAMS TUBE TP SCH (10:20)
[2019-08-15] MEDS: risperiDONE 0.25 MG TABLET (FP) PO SCH ×2 (10:20→21:08)
--- NOTE | 2019-08-15 14:18 | PN.GI ---
GI Progress Note Subjective: GI Note: Radha denies pain. No overt bleeding found. Her stool was guaiac negative by Dr Bishop's exam. Got a unit PRBCs yesterday. - Objective Vital Signs: Vital Signs Temperature 99.8 F H 08/15/19 06:34 Pulse Rate 74 08/15/19 06:34 Respiratory Rate 18 08/15/19 06:34 Blood Pressure 117/57 L 08/15/19 06:34 O2 Sat by Pulse Oximetry (%) 96 08/14/19 21:00 Laboratory Tests 05/20/18 05/20/18 08/11/19 06:40 06:40 06:30 WBC 11.6 H Hgb 8.1 L Iron 12 L TIBC 191 L Iron Saturation 6 L Ferritin 325.1 Total Bilirubin AST ALT Alkaline Phosphatase Albumin 08/14/19 08/14/19 08/15/19 07:30 07:30 07:25 WBC Hgb 7.2 L Iron TIBC Iron Saturation Ferritin Total Bilirubin 0.3 0.4 AST 19 20 ALT 30 34 Alkaline Phosphatase 100 139 H Albumin 2.0 L 08/15/19 07:25 WBC 8.5 Hgb 9.2 L Iron TIBC Iron Saturation Ferritin Total Bilirubin AST ALT Alkaline Phosphatase Albumin Constitutional: No Distress ...Auscultate: Yes: Normoactive Bowel Sounds ...Palpate: Yes: Soft, Other (nontender) Labs: CBC, BMP 08/15/19 07:25 08/15/19 07:25 INR, PTT INR 1.42 (0.83-1.09) H 08/10/19 20:15 Assessment/Plan Assessment: - Chronically dilated but nonobstructed common bile duct based on current MRCP. This could reflect repeated passage of GB stones. Cholecystectomy was declined in the past and kristie daughter and Radha feel kristie same. The daughter is at the bedside and I discussed the situiation with her. - Anemia without overt bleeding. EGD and colonoscopy again declined by Jose Eduardo and her daughterMechelle Plan: -- Recheck iron, folate and Vitamin B12 indices, retic cout and SPEP -- Await official MRCP reading -- PPI empirically -- Consider hematology consultation Problem List - Problems (1) Dilated bile duct Code(s): K83.8 - OTHER SPECIFIED DISEASES OF BILIARY TRACT (2) Anemia Code(s): D64.9 - ANEMIA, UNSPECIFIED Qualifiers: Chronic kidney disease stage: unspecified stage (3) Afib Code(s): I48.91 - UNSPECIFIED ATRIAL FIBRILLATION (4) Bipolar 1 disorder Code(s): F31.9 - BIPOLAR DISORDER, UNSPECIFIED (5) Gallstones Code(s): K80.20 - CALCULUS OF GALLBLADDER W/O CHOLECYSTITIS W/O OBSTRUCTION (6) HLD (hyperlipidemia) Code(s): E78.5 - HYPERLIPIDEMIA, UNSPECIFIED (7) HTN (hypertension) Code(s): I10 - ESSENTIAL (PRIMARY) HYPERTENSION Qualifiers: Hypertension type: essential hypertension Qualified Code(s): I10 - Essential (primary) hypertension (8) CKD (chronic kidney disease) Code(s): N18.9 - CHRONIC KIDNEY DISEASE, UNSPECIFIED Qualifiers: Chronic kidney disease stage: stage 2 (mild) Qualified Code(s): N18.2 - Chronic kidney disease, stage 2 (mild) (9) Constipation Code(s): K59.00 - CONSTIPATION, UNSPECIFIED (10) Diabetes Code(s): E11.9 - TYPE 2 DIABETES MELLITUS WITHOUT COMPLICATIONS Qualifiers: Diabetes mellitus type: type 2 Diabetes mellitus nursing home insulin use: with nursing home use Diabetes mellitus complication status: with skin complications Diabetes mellitus complication detail: with foot ulcer Qualified Code(s): E11.621 - Type 2 diabetes mellitus with foot ulcer; L97.509 - Non-pressure chronic ulcer of other part of unspecified foot with unspecified severity; Z79.4 - intermediate card tender (current) use of insulin
[2019-08-15] MEDS: PANTOPRAZOLE 40 MG TABLET (FP) PO SCH (18:02)
--- NOTE | 2019-08-15 20:28 | PN ---
Progress Note, Physician History of Present Illness: Events noted. Pt with intermittent low grade fevers but alert,responsive, and without respiratory distress. - Current Medication List Current Medications: Active Medications Amino Acids (Prosource No Carb Liquid Pkt) 30 ml PO BID@0800,1730 [facility] Last Admin: 08/15/19 18:02 Dose: 30 ml Apixaban (Eliquis -) 2.5 mg PO BID [facility] Last Admin: 08/15/19 10:18 Dose: 2.5 mg Collagenase (Santyl -) 1 applic TP DAILY [facility]; Protocol Last Admin: 08/15/19 10:20 Dose: 1 applic Ferrous Sulfate (Feosol -) 325 mg PO DAILY [facility] Last Admin: 08/15/19 10:18 Dose: 325 mg Meropenem 1 gm/ Dextrose 100 mls @ 0 mls/hr IVPB Q12H [facility] Insulin Aspart (Novolog Vial Sliding Scale -) 1 vial SQ TIDAC [facility]; Protocol Last Admin: 08/15/19 18:08 Dose: Not Given Insulin Detemir (Levemir Vial) 6 units SQ BID@0700,2200 [facility] Last Admin: 08/15/19 06:34 Dose: 6 unit Linezolid (Zyvox (Restricted To Id) -) 600 mg PO BID [facility] Last Admin: 08/15/19 10:19 Dose: 600 mg Lorazepam (Ativan -) 0.5 mg PO BID [facility] Last Admin: 08/15/19 10:18 Dose: 0.5 mg Pantoprazole Sodium (Protonix -) 40 mg PO DAILY [facility] Last Admin: 08/15/19 18:02 Dose: 40 mg Propranolol HCl (Inderal -) 20 mg PO BID [facility] Last Admin: 08/15/19 10:19 Dose: 20 mg Risperidone (Risperdal -) 0.25 mg PO BID [facility] Last Admin: 08/15/19 10:20 Dose: 0.25 mg Sitagliptin Phosphate (Januvia -) 25 mg PO DAILY@0700 [facility] Last Admin: 08/15/19 06:34 Dose: 25 mg - Objective Vital Signs: Vital Signs Temperature 98.9 F 08/15/19 18:00 Pulse Rate 75 08/15/19 18:00 Respiratory Rate 18 08/15/19 18:00 Blood Pressure 133/69 08/15/19 18:00 O2 Sat by Pulse Oximetry (%) 96 08/15/19 09:00 Constitutional: Yes: No Distress, Calm Cardiovascular: Yes: Regular Rate and Rhythm Respiratory: Yes: Regular Gastrointestinal: Yes: Normal Bowel Sounds, Soft Genitourinary: Yes: WNL Integumentary: Yes: Pressure Ulcer Wound/Incision: Yes: Other (DU - dressing intact) Neurological: Yes: Alert, Oriented Labs: CBC, BMP 08/15/19 07:25 08/15/19 07:25 INR, PTT INR 1.42 (0.83-1.09) H 08/10/19 20:15 Microbiology 08/11/19 00:00 Ulcer Gram Stain - Final 08/11/19 00:00 Ulcer Wound Culture - Final Pseudomonas Aeruginosa Vr Ec Faecalis Staphylococcus Aureus 08/11/19 23:59 Blood - Peripheral Venous Blood Culture - Preliminary NO GROWTH OBTAINED AFTER 72 HOURS, INCUBATION TO CONTINUE FOR 2 DAYS. 08/11/19 23:50 Blood - Peripheral Venous Blood Culture - Preliminary NO GROWTH OBTAINED AFTER 72 HOURS, INCUBATION TO CONTINUE FOR 2 DAYS. 08/10/19 20:20 Blood - Peripheral Venous Blood Culture - Preliminary NO GROWTH OBTAINED AFTER 96 HOURS, INCUBATION TO CONTINUE FOR 1 DAYS. 08/10/19 20:15 Blood - Peripheral Venous Blood Culture - Preliminary NO GROWTH OBTAINED AFTER 96 HOURS, INCUBATION TO CONTINUE FOR 1 DAYS. 08/12/19 22:30 Stool Clostridioides difficile Antigen - Final 08/12/19 22:30 Stool Clostridioides difficile Toxin Assay - Final 08/10/19 20:10 Urine - Urine - Catheterized Urine Culture - Final Vr Ec Faecalis 08/12/19 12:30 Nares - Right Nares MRSA Screen - Final NO MRSA ISOLATED 08/12/19 12:30 Nares - Mrsa Screen - Left MRSA Screen - Final NO MRSA ISOLATED 08/12/19 12:30 Rectal Swab VRE Culture - Final NO VREF ISOLATED - ....Imaging Chest X-ray: Report Reviewed MRI: Pending Problem List - Problems (1) Afib Code(s): I48.91 - UNSPECIFIED ATRIAL FIBRILLATION (2) Dilated bile duct Code(s): K83.8 - OTHER SPECIFIED DISEASES OF BILIARY TRACT (3) Sepsis Code(s): A41.9 - SEPSIS, UNSPECIFIED ORGANISM Qualifiers: Sepsis type: sepsis due to unspecified organism Sepsis acute organ dysfunction status: with acute organ dysfunction Severe sepsis acute organ dysfunction type: acute renal failure Acute renal failure type: unspecified Severe sepsis shock status: without septic shock Qualified Code(s): A41.9 - Sepsis, unspecified organism; R65.20 - Severe sepsis without septic shock; N17.9 - Acute kidney failure, unspecified (4) AMILCAR (acute kidney injury) Code(s): N17.9 - ACUTE KIDNEY FAILURE, UNSPECIFIED (5) Bipolar 1 disorder Code(s): F31.9 - BIPOLAR DISORDER, UNSPECIFIED (6) Diabetes Code(s): E11.9 - TYPE 2 DIABETES MELLITUS WITHOUT COMPLICATIONS Qualifiers: Diabetes mellitus type: type 2 Diabetes mellitus regional intermodal truck driver insulin use: with regional intermodal truck driver use Diabetes mellitus complication status: with skin complications Diabetes mellitus complication detail: with foot ulcer Qualified Code(s): E11.621 - Type 2 diabetes mellitus with foot ulcer; L97.509 - Non-pressure chronic ulcer of other part of unspecified foot with unspecified severity; Z79.4 - senior living (current) use of insulin (7) HLD (hyperlipidemia) Code(s): E78.5 - HYPERLIPIDEMIA, UNSPECIFIED (8) HTN (hypertension) Code(s): I10 - ESSENTIAL (PRIMARY) HYPERTENSION Qualifiers: Hypertension type: essential hypertension Qualified Code(s): I10 - Essential (primary) hypertension (9) History of DVT (deep vein thrombosis) Code(s): Z86.718 - PERSONAL HISTORY OF OTHER VENOUS THROMBOSIS AND EMBOLISM (10) Pressure ulcer of right buttock, stage 4 Code(s): L89.314 - PRESSURE ULCER OF RIGHT BUTTOCK, STAGE 4 (11) Stage 4 skin ulcer of sacral region Code(s): L98.429 - NON-PRESSURE CHRONIC ULCER OF BACK WITH UNSPECIFIED SEVERITY (12) Wound infection Code(s): T14.8XXA - OTHER INJURY OF UNSPECIFIED BODY REGION, INITIAL ENCOUNTER; L08.9 - LOCAL INFECTION OF THE SKIN AND SUBCUTANEOUS TISSUE, UNSP Assessment/Plan Wound cultures noted: Pseudomonas resistant to Zosyn, Staph, VRE Urine culture: VRE -- pt still with low grade fever - d/c Zosyn, switch to Meropenem, continue Zyvox -- continue wound care, frequent turning -- renal function improving -- continue monitor temperatures
[2019-08-15] MEDS ORDERED: MEROPENEM 1 GM VIAL (RESTRICTED TO ID) IVPB ONE (20:40)
[2019-08-15] MEDS ORDERED: DEXTROSE 5%-WATER 100 ML IVPB ONE (20:41)
[2019-08-15] MEDS: MEROPENEM 1 GM in DEXTROSE 5%-WATER 100 ML IVPB SCH (20:59)
[2019-08-16] MEDS: INSULIN (LEVEMIR) 100 UNITS/ML UNITS SQ SCH ×2 (06:44→21:12)
[2019-08-16] MEDS: INSULIN SLIDING SCALE (NOVOLOG) 1 VIAL SQ SCH ×3 (06:45→17:53)
[2019-08-16] MEDS ORDERED: INSULIN (NOVOLOG) ASPART 100 UNITS/ML 10ML VIAL ONE ×2 (06:52→11:53)
[2019-08-16 07:45] LABS: BASO % 0.5 % (0-2.0); EOS % 7.1 % (0-4.5); HEMATOCRIT 28.9 % (32.4-45.2); LYMPH % 17.4 % (8-40); MCH 25.8 pg (25.7-33.7); MCHC 31.3 g/dl (32.0-36.0); MEAN CELL VOLUME 82.3 fl (80-96); MEAN PLT VOLUME 8.6 fl (7.5-11.1); MONO % 11.7 % (3.8-10.2); NEUT % 63.3 % (42.8-82.8); PLATELET COUNT 418 K/MM3 (134-434); RBC 3.51 M/mm3 (3.60-5.2); RDW 16.1 % (11.6-15.6); WHITE BLOOD COUNT 6.8 K/mm3 (4.0-10.0)
[2019-08-16 08:54] LABS: ALBUMIN 1.8 g/dl (3.4-5.0); BILIRUBIN,TOTAL 0.2 mg/dL (0.2-1); BLOOD UREA NITROGEN 24.2 mg/dL (7-18); CALCIUM 8.7 mg/dL (8.5-10.1); CREATININE 1.5 mg/dL (0.55-1.3); MAGNESIUM 1.7 mg/dL (1.8-2.4); TOT PROT 6.4 g/dl (6.4-8.2)
[2019-08-16 10:24] LABS: PLATELET ESTIMATE NORMAL
[2019-08-16] MEDS ORDERED: DEXTROSE 5%-WATER 100 ML IVPB ONE ×2 (10:26→20:51)
[2019-08-16] MEDS ORDERED: MEROPENEM 1 GM VIAL (RESTRICTED TO ID) IVPB ONE ×3 (10:26→20:57)
[2019-08-16] MEDS ORDERED: PT OWN MED DRAWER 7, Y5N ONE (10:27)
--- NOTE | 2019-08-16 10:46 | PN ---
Physical Exam: SUBJECTIVE: Patient seen and examined at the bedside. in no acute distress. OBJECTIVE: Patient is a 74 year old female with PMH of HTN, DM2, HLD, chronic Afib (on eliquis), stage IV decubitus sacral ulcer, functional quadriplegia BIBEMS from [facility] for anemia (Hgb 8.1). Pt has complained of mild abdominal discomfort and decreased appetite over the past 2 days. Also notes subjective fevers and chills. Blood work cbc was 8.1, so she was brought into the ED. Upon arrival, pt was tachycardic at 129, febrile at 103.6. Vital Signs Period Temp Pulse Resp BP Sys/Uribe Pulse Ox Last 24 Hr 98.4 F-98.9 F 66-93 18-18 133-150/63-84 96 GENERAL: The patient is awake, alert, in no acute distress. HEAD: Normal with no signs of trauma. EYES: PERRL, extraocular movements intact, sclera anicteric, conjunctiva clear. No ptosis. ENT: Ears normal, nares patent, oropharynx clear without exudates, moist mucous membranes. NECK: Trachea midline, full range of motion, supple. LUNGS: congested on upper lobes, lower lobes clear, tolerating room air HEART: Regular rate and rhythm ABDOMEN: mildly distended, + bowel sounds EXTREMITIES: no edema. NEUROLOGICAL: Normal speech, gait not observed. PSYCH: withdrawn SKIN: Warm, dry, normal turgor, no rashes or lesions noted Laboratory Results - last 24 hr 08/15/19 08/16/19 08/16/19 18:06 05:20 06:13 WBC RBC Hgb Hct MCV MCH MCHC RDW Plt Count MPV Absolute Neuts (auto) Neutrophils % Lymphocytes % Monocytes % Eosinophils % Basophils % Nucleated RBC % Platelet Estimate Platelet Comment Sodium 146 H Potassium 4.0 Chloride 118 H Carbon Dioxide 16 L Anion Gap 12 BUN 24.2 H Creatinine 1.5 H Est GFR (CKD-EPI)AfAm 39.64 Est GFR (CKD-EPI)NonAf 34.21 POC Glucometer 126 152 Random Glucose 154 H Calcium 8.7 Magnesium 1.7 L Total Bilirubin 0.2 GGT AST 18 ALT 31 Alkaline Phosphatase 143 H LD Total C-Reactive Protein Total Protein 6.4 Albumin 1.8 L Total Amylase Lipase Vitamin B12 Serum Folate 23 H 08/16/19 08/16/19 06:13 06:45 WBC 6.8 RBC 3.51 L Hgb 9.0 L Hct 28.9 L MCV 82.3 MCH 25.8 MCHC 31.3 L RDW 16.1 H Plt Count 418 MPV 8.6 Absolute Neuts (auto) 4.3 Neutrophils % 63.3 Lymphocytes % 17.4 D Monocytes % 11.7 H Eosinophils % 7.1 H Basophils % 0.5 Nucleated RBC % 0 Platelet Estimate Normal Platelet Comment Present Sodium Potassium Chloride Carbon Dioxide Anion Gap BUN Creatinine Est GFR (CKD-EPI)AfAm Est GFR (CKD-EPI)NonAf POC Glucometer Random Glucose Calcium Magnesium Total Bilirubin GGT 104 H AST ALT Alkaline Phosphatase LD Total 154 C-Reactive Protein 8.0 H Total Protein Albumin Total Amylase 46 Lipase 172 Vitamin B12 502 Serum Folate Active Medications Generic Name Dose Route Start Last Admin Trade Name Freq PRN Reason Stop Dose Admin Amino Acids 30 ml 08/13/19 17:30 08/15/19 18:02 Prosource No Carb Liquid Pkt PO 30 ml BID@0800,1730 YOAV Administration Apixaban 2.5 mg 08/11/19 10:00 08/15/19 21:08 Eliquis - PO 2.5 mg BID YOAV Administration Collagenase 1 applic 08/11/19 18:00 08/15/19 10:20 Santyl - TP 1 applic DAILY YOAV Administration Protocol Ferrous Sulfate 325 mg 08/14/19 16:30 08/15/19 10:18 Feosol - PO 325 mg DAILY YOAV Administration Meropenem 1 gm/ Dextrose 100 mls @ 200 mls/hr 08/15/19 20:15 08/15/19 20:59 IVPB 200 mls/hr Q12H YOAV Administration Insulin Aspart 1 vial 08/11/19 07:00 08/16/19 06:45 Novolog Vial Sliding Scale - SQ 2 units TIDAC YOAV Administration Protocol Insulin Detemir 6 units 08/11/19 07:00 08/16/19 06:44 Levemir Vial SQ 6 unit BID@0700,2200 YOAV Administration Linezolid 600 mg 08/14/19 11:00 08/15/19 21:08 Zyvox (Restricted To Id) - PO 600 mg BID YOAV Administration Lorazepam 0.5 mg 08/11/19 22:00 08/15/19 21:08 Ativan - PO 0.5 mg BID YOAV Administration Magnesium Oxide 400 mg 08/16/19 10:40 Mag-Ox - PO 08/16/19 10:41 ONCE ONE Pantoprazole Sodium 40 mg 08/15/19 16:30 08/15/19 18:02 Protonix - PO 40 mg DAILY YOAV Administration Propranolol HCl 20 mg 08/11/19 10:00 08/15/19 21:08 Inderal - PO 20 mg BID YOAV Administration Risperidone 0.25 mg 08/11/19 10:00 08/15/19 21:08 Risperdal - PO 0.25 mg BID YOAV Administration Sitagliptin Phosphate 25 mg 08/15/19 07:00 08/16/19 06:44 Januvia - PO 25 mg DAILY@0700 YOAV Administration ASSESSMENT/PLAN: Problem List - Problems (1) Afib Assessment/Plan: EKG on admission :sinus tachycardia, no st elevations or t wave inversions c/w home eliquis 2.5mg BID Code(s): I48.91 - UNSPECIFIED ATRIAL FIBRILLATION (2) Dilated bile duct Assessment/Plan: Chronically dilated but nonobstructed common bile duct based on current MRCP per GI. Possible repeated passage of GB stones. Cholecystectomy declined by family and patient. Code(s): K83.8 - OTHER SPECIFIED DISEASES OF BILIARY TRACT (3) Incontinence Code(s): R32 - UNSPECIFIED URINARY INCONTINENCE (4) Prophylactic measure Code(s): Z29.9 - ENCOUNTER FOR PROPHYLACTIC MEASURES, UNSPECIFIED (5) Sepsis Assessment/Plan: Stage IV decubitus sacral ulcer with erythematous borders UA: 1+ LE, 2+ blood, 2+ protein Initial lactic acid: 1.9, f/u lactic 0.9 ESR: 119, CRP: 23.5 wound with pseudomonas, VRE, MSSA urine Cx VRE and blood Cx neg hx of MRSA in past, MRSA swab negative on meropenem Dr. Ohara following pt MRI abd/pelvis withput evidence of osteomyelitis and no fluid collections seen vascular surgery (Dr. Solis)and no surgical intervention needed Code(s): A41.9 - SEPSIS, UNSPECIFIED ORGANISM Qualifiers: Sepsis type: sepsis due to unspecified organism Sepsis acute organ dysfunction status: with acute organ dysfunction Severe sepsis acute organ dysfunction type: acute renal failure Acute renal failure type: unspecified Severe sepsis shock status: without septic shock Qualified Code(s): A41.9 - Sepsis, unspecified organism; R65.20 - Severe sepsis without septic shock; N17.9 - Acute kidney failure, unspecified (6) AMILCAR (acute kidney injury) Assessment/Plan: improving Likely 2/2 sepsis BUN/Cr: 55/ 2.2-on admission (baseline Cr: 1.4) Now 1.5 continue to monitor kidney function Avoid nephrotoxic agents Code(s): N17.9 - ACUTE KIDNEY FAILURE, UNSPECIFIED (7) Anemia Assessment/Plan: anemia without evidence of bleeding. EGD and colonoscopy declined hematology outpatient v inpatient Code(s): D64.9 - ANEMIA, UNSPECIFIED (8) Diabetes Assessment/Plan: Cont home levemir 6 units BID BGM AC/HS with novlog sliding scale Code(s): E11.9 - TYPE 2 DIABETES MELLITUS WITHOUT COMPLICATIONS Qualifiers: Diabetes mellitus type: type 2 Diabetes mellitus care home insulin use: with care home use Diabetes mellitus complication status: with skin complications Diabetes mellitus complication detail: with foot ulcer Qualified Code(s): E11.621 - Type 2 diabetes mellitus with foot ulcer; L97.509 - Non-pressure chronic ulcer of other part of unspecified foot with unspecified severity; Z79.4 - long term care social worker (current) use of insulin Visit type - Emergency Visit Emergency Visit: Yes ED Registration Date: 08/10/19 Care time: The patient presented to the Emergency Department on the above date and was hospitalized for further evaluation of their emergent condition. - New Patient This patient is new to me today: Yes Date on this admission: 08/16/19 - Critical Care Critical Care patient: No - Discharge Referral Referred to [facility] Med P.C.: No
[2019-08-16] MEDS: MEROPENEM 1 GM in DEXTROSE 5%-WATER 100 ML IVPB SCH ×2 (10:53→20:59)
[2019-08-16] MEDS: AMINO ACIDS/PROTEIN HYDROLYS 30 ML LIQUID.PKT PO SCH ×2 (10:53→17:53)
[2019-08-16] MEDS: APIXABAN 2.5 MG TABLET PO SCH ×2 (10:54→21:00)
[2019-08-16] MEDS: FERROUS SO4 325 MG TABLET (FP) PO SCH (10:54)
[2019-08-16] MEDS: LORazepam 0.5 MG TABLET PO SCH ×2 (10:55→21:00)
[2019-08-16] MEDS: PANTOPRAZOLE 40 MG TABLET (FP) PO SCH (10:55)
[2019-08-16] MEDS: LINEZOLID 600 MG TABLET (RESTRICTED TO ID) PO SCH ×2 (10:55→21:01)
[2019-08-16] MEDS: risperiDONE 0.25 MG TABLET (FP) PO SCH ×2 (10:55→21:01)
[2019-08-16] MEDS: COLLAGENASE CLOSTRIDIUM HIST. 30 GRAMS TUBE TP SCH (10:56)
[2019-08-16] MEDS ORDERED: MAGNESIUM OXIDE 400 MG TABLET (FP) PO ONE (11:00)
--- NOTE | 2019-08-16 11:56 | PN.GI ---
GI Progress Note Subjective: GI NOte: NO pain or bleeding. LFTs normalizing. Hb stable. Discussed MRCP with Dr Booker who finds no CBD stones or bile duct obstruction - Objective Vital Signs: Vital Signs Temperature 98.6 F 08/16/19 10:00 Pulse Rate 87 08/16/19 10:00 Respiratory Rate 18 08/16/19 10:00 Blood Pressure 145/67 08/16/19 10:00 O2 Sat by Pulse Oximetry (%) 96 08/15/19 21:00 Laboratory Tests 08/15/19 08/16/19 08/16/19 07:25 06:13 06:13 Hgb 9.2 L Retic Count Haptoglobin Total Bilirubin 0.2 GGT 104 H AST 18 ALT 31 Alkaline Phosphatase 143 H LD Total 154 Total Amylase 46 Lipase 172 CA 19-9 Antigen 08/16/19 08/16/19 08/16/19 06:45 06:45 06:45 Hgb 9.0 L Retic Count Pending Haptoglobin Pending Total Bilirubin GGT AST ALT Alkaline Phosphatase LD Total Total Amylase Lipase CA 19-9 Antigen Pending Constitutional: Calm ...Auscultate: Yes: Normoactive Bowel Sounds ...Palpate: Yes: Soft, Other (nontender) Labs: CBC, BMP 08/16/19 06:45 08/16/19 06:13 INR, PTT INR 1.42 (0.83-1.09) H 08/10/19 20:15 Assessment/Plan Assessment: - Chronically dilated but nonobstructed common bile duct based on current MRCP. This could reflect repeated passage of GB stones. Cholecystectomy declined by Radha and her daughter. - Anemia without overt bleeding. EGD and colonoscopy again declined by Jose Eduardo and her daughter. Plan: -- No GI objections to discharge Problem List - Problems (1) Dilated bile duct Code(s): K83.8 - OTHER SPECIFIED DISEASES OF BILIARY TRACT (2) Anemia Code(s): D64.9 - ANEMIA, UNSPECIFIED Qualifiers: Chronic kidney disease stage: unspecified stage (3) Afib Code(s): I48.91 - UNSPECIFIED ATRIAL FIBRILLATION (4) Bipolar 1 disorder Code(s): F31.9 - BIPOLAR DISORDER, UNSPECIFIED (5) Gallstones Code(s): K80.20 - CALCULUS OF GALLBLADDER W/O CHOLECYSTITIS W/O OBSTRUCTION (6) HLD (hyperlipidemia) Code(s): E78.5 - HYPERLIPIDEMIA, UNSPECIFIED (7) HTN (hypertension) Code(s): I10 - ESSENTIAL (PRIMARY) HYPERTENSION Qualifiers: Hypertension type: essential hypertension Qualified Code(s): I10 - Essential (primary) hypertension (8) CKD (chronic kidney disease) Code(s): N18.9 - CHRONIC KIDNEY DISEASE, UNSPECIFIED Qualifiers: Chronic kidney disease stage: stage 2 (mild) Qualified Code(s): N18.2 - Chronic kidney disease, stage 2 (mild) (9) Constipation Code(s): K59.00 - CONSTIPATION, UNSPECIFIED (10) Diabetes Code(s): E11.9 - TYPE 2 DIABETES MELLITUS WITHOUT COMPLICATIONS Qualifiers: Diabetes mellitus type: type 2 Diabetes mellitus rodent exterminator insulin use: with jail use Diabetes mellitus complication status: with skin complications Diabetes mellitus complication detail: with foot ulcer Qualified Code(s): E11.621 - Type 2 diabetes mellitus with foot ulcer; L97.509 - Non-pressure chronic ulcer of other part of unspecified foot with unspecified severity; Z79.4 - group home (current) use of insulin
--- NOTE | 2019-08-16 14:59 | PN ---
Progress Note, Physician History of Present Illness: stable improving - Current Medication List Current Medications: Active Medications Amino Acids (Prosource No Carb Liquid Pkt) 30 ml PO BID@0800,1730 [facility] Last Admin: 08/16/19 10:53 Dose: 30 ml Apixaban (Eliquis -) 2.5 mg PO BID [facility] Last Admin: 08/16/19 10:54 Dose: 2.5 mg Collagenase (Santyl -) 1 applic TP DAILY [facility]; Protocol Last Admin: 08/16/19 10:56 Dose: 1 applic Ferrous Sulfate (Feosol -) 325 mg PO DAILY [facility] Last Admin: 08/16/19 10:54 Dose: 325 mg Meropenem 1 gm/ Dextrose 100 mls @ 200 mls/hr IVPB Q12H [facility] Last Admin: 08/16/19 10:53 Dose: 200 mls/hr Insulin Aspart (Novolog Vial Sliding Scale -) 1 vial SQ TIDAC [facility]; Protocol Last Admin: 08/16/19 11:46 Dose: 4 units Insulin Detemir (Levemir Vial) 6 units SQ BID@0700,2200 [facility] Last Admin: 08/16/19 06:44 Dose: 6 unit Linezolid (Zyvox (Restricted To Id) -) 600 mg PO BID [facility] Last Admin: 08/16/19 10:55 Dose: 600 mg Lorazepam (Ativan -) 0.5 mg PO BID [facility] Last Admin: 08/16/19 10:55 Dose: 0.5 mg Pantoprazole Sodium (Protonix -) 40 mg PO DAILY [facility] Last Admin: 08/16/19 10:55 Dose: 40 mg Propranolol HCl (Inderal -) 20 mg PO BID [facility] Last Admin: 08/16/19 10:55 Dose: 20 mg Risperidone (Risperdal -) 0.25 mg PO BID [facility] Last Admin: 08/16/19 10:55 Dose: 0.25 mg Sitagliptin Phosphate (Januvia -) 25 mg PO DAILY@0700 [facility] Last Admin: 08/16/19 06:44 Dose: 25 mg - Objective Vital Signs: Vital Signs Temperature 98.6 F 08/16/19 10:00 Pulse Rate 87 08/16/19 10:00 Respiratory Rate 18 08/16/19 10:00 Blood Pressure 145/67 08/16/19 10:00 O2 Sat by Pulse Oximetry (%) 96 08/16/19 09:00 Constitutional: Yes: No Distress, Calm Cardiovascular: Yes: S1, S2 Respiratory: Yes: Regular, CTA Bilaterally Gastrointestinal: Yes: Normal Bowel Sounds, Soft Musculoskeletal: Yes: WNL Extremities: Yes: WNL Wound/Incision: Yes: Dressing Dry and Intact Neurological: Yes: Alert, Oriented Psychiatric: Yes: Alert, Oriented Labs: CBC, BMP 08/16/19 06:45 08/16/19 06:13 INR, PTT INR 1.42 (0.83-1.09) H 08/10/19 20:15 Assessment/Plan Problem List - Problems (1) Afib Code(s): I48.91 - UNSPECIFIED ATRIAL FIBRILLATION (2) Sepsis Code(s): A41.9 - SEPSIS, UNSPECIFIED ORGANISM Qualifiers: Sepsis type: sepsis due to unspecified organism Sepsis acute organ dysfunction status: with acute organ dysfunction Severe sepsis acute organ dysfunction type: acute renal failure Acute renal failure type: unspecified Severe sepsis shock status: without septic shock Qualified Code(s): A41.9 - Sepsis, unspecified organism; R65.20 - Severe sepsis without septic shock; N17.9 - Acute kidney failure, unspecified (3) AMILCAR (acute kidney injury) Code(s): N17.9 - ACUTE KIDNEY FAILURE, UNSPECIFIED (4) Diabetes Code(s): E11.9 - TYPE 2 DIABETES MELLITUS WITHOUT COMPLICATIONS Qualifiers: Diabetes mellitus type: type 2 Diabetes mellitus nursing home insulin use: with nursing home use Diabetes mellitus complication status: with skin complications Diabetes mellitus complication detail: with foot ulcer Qualified Code(s): E11.621 - Type 2 diabetes mellitus with foot ulcer; L97.509 - Non-pressure chronic ulcer of other part of unspecified foot with unspecified severity; Z79.4 - shelter (current) use of insulin (5) HLD (hyperlipidemia) Code(s): E78.5 - HYPERLIPIDEMIA, UNSPECIFIED (6) HTN (hypertension) Code(s): I10 - ESSENTIAL (PRIMARY) HYPERTENSION Qualifiers: Hypertension type: essential hypertension Qualified Code(s): I10 - Essential (primary) hypertension (7) Stage 4 skin ulcer of sacral region Code(s): L98.429 - NON-PRESSURE CHRONIC ULCER OF BACK WITH UNSPECIFIED SEVERITY plan continue current mgmt organisms noted abx rest continue current mgmt wound care
[2019-08-16 15:14] LABS: RETICULOCYTES 1.72 % (0.5-1.5)
[2019-08-17] MEDS: INSULIN (LEVEMIR) 100 UNITS/ML UNITS SQ SCH ×2 (06:38→21:42)
[2019-08-17] MEDS: INSULIN SLIDING SCALE (NOVOLOG) 1 VIAL SQ SCH ×3 (06:38→17:03)
[2019-08-17] MEDS ORDERED: PT OWN MED DRAWER 7, Y5N ONE (09:00)
[2019-08-17] MEDS ORDERED: MEROPENEM 1 GM VIAL (RESTRICTED TO ID) IVPB ONE ×2 (09:00→19:29)
[2019-08-17] MEDS ORDERED: DEXTROSE 5%-WATER 100 ML IVPB ONE ×2 (09:00→19:30)
[2019-08-17] MEDS: MEROPENEM 1 GM in DEXTROSE 5%-WATER 100 ML IVPB SCH ×2 (09:22→20:04)
[2019-08-17] MEDS: AMINO ACIDS/PROTEIN HYDROLYS 30 ML LIQUID.PKT PO SCH ×2 (09:22→17:01)
[2019-08-17] MEDS: PANTOPRAZOLE 40 MG TABLET (FP) PO SCH (09:23)
[2019-08-17] MEDS: FERROUS SO4 325 MG TABLET (FP) PO SCH (09:23)
[2019-08-17] MEDS: LORazepam 0.5 MG TABLET PO SCH ×2 (09:23→21:41)
[2019-08-17] MEDS: APIXABAN 2.5 MG TABLET PO SCH ×2 (09:23→21:42)
[2019-08-17] MEDS: risperiDONE 0.25 MG TABLET (FP) PO SCH ×2 (09:23→21:42)
[2019-08-17] MEDS: LINEZOLID 600 MG TABLET (RESTRICTED TO ID) PO SCH ×2 (09:23→21:41)
[2019-08-17] MEDS: COLLAGENASE CLOSTRIDIUM HIST. 30 GRAMS TUBE TP SCH (09:44)
--- NOTE | 2019-08-17 10:21 | PN ---
Physical Exam: SUBJECTIVE: Patient seen and examined at the bedside. denies any pain, discomfort or malaise. OBJECTIVE: Patient is a 74 year old female (from [facility]) with PMH of HTN , DM2, HLD, chronic Afib (on eliquis), stage IV decubitus sacral ulcer, functional quadriplegia BIBEMS from [place] for anemia (Hgb 8.1). Pt has complained of mild abdominal discomfort and decreased appetite over the past 2 days. Also notes subjective fevers and chills. Upon arrival to the ED, pt was tachycardic at 129, febrile at 103.6. She denies any nausea, vomiting, chest pain, SOB, urinary symptoms, headaches. Vital Signs Period Temp Pulse Resp BP Sys/Uribe Pulse Ox Last 24 Hr 97.9 F-98.8 F 65-84 18-18 132-148/57-85 96 GENERAL: The patient is awake, alert, in no acute distress. resting tremor left arm HEAD: Normal with no signs of trauma. EYES: PERRL, extraocular movements intact, sclera anicteric, conjunctiva clear. No ptosis. ENT: Ears normal, nares patent, oropharynx clear without exudates, moist mucous membranes. NECK: Trachea midline, full range of motion, supple. LUNGS: congested on upper lobes, lower lobes clear, tolerating room air HEART: Regular rate and rhythm ABDOMEN: mildly distended, + bowel sounds EXTREMITIES: no edema. NEUROLOGICAL: Normal speech, gait not observed. PSYCH: withdrawn SKIN: stage 4 sacrum Laboratory Results - last 24 hr 08/16/19 08/16/19 08/16/19 06:45 06:45 06:45 Platelet Estimate Normal Platelet Comment Present Retic Count 1.72 H Haptoglobin 501 H POC Glucometer CA 19-9 Antigen 24 08/16/19 08/16/19 08/16/19 11:44 17:50 21:11 Platelet Estimate Platelet Comment Retic Count Haptoglobin POC Glucometer 220 218 188 CA 19-9 Antigen 08/17/19 06:36 Platelet Estimate Platelet Comment Retic Count Haptoglobin POC Glucometer 172 CA 19-9 Antigen Active Medications Generic Name Dose Route Start Last Admin Trade Name Freq PRN Reason Stop Dose Admin Amino Acids 30 ml 08/13/19 17:30 08/17/19 09:22 Prosource No Carb Liquid Pkt PO 30 ml BID@0800,1730 YOAV Administration Apixaban 2.5 mg 08/11/19 10:00 08/17/19 09:23 Eliquis - PO 2.5 mg BID YOAV Administration Collagenase 1 applic 08/11/19 18:00 08/17/19 09:44 Santyl - TP 1 applic DAILY YOAV Administration Protocol Ferrous Sulfate 325 mg 08/14/19 16:30 08/17/19 09:23 Feosol - PO 325 mg DAILY YOAV Administration Meropenem 1 gm/ Dextrose 100 mls @ 200 mls/hr 08/15/19 20:15 08/17/19 09:22 IVPB 200 mls/hr Q12H YOAV Administration Insulin Aspart 1 vial 08/11/19 07:00 08/17/19 06:38 Novolog Vial Sliding Scale - SQ 2 units TIDAC [facility] Administration Protocol Insulin Detemir 6 units 08/11/19 07:00 08/17/19 06:38 Levemir Vial SQ 6 unit BID@0700,2200 YOAV Administration Linezolid 600 mg 08/14/19 11:00 08/17/19 09:23 Zyvox (Restricted To Id) - PO 600 mg BID YOAV Administration Lorazepam 0.5 mg 08/11/19 22:00 08/17/19 09:23 Ativan - PO 0.5 mg BID YOAV Administration Pantoprazole Sodium 40 mg 08/15/19 16:30 08/17/19 09:23 Protonix - PO 40 mg DAILY YOAV Administration Propranolol HCl 20 mg 08/11/19 10:00 08/17/19 09:23 Inderal - PO 20 mg BID YOAV Administration Risperidone 0.25 mg 08/11/19 10:00 08/17/19 09:23 Risperdal - PO 0.25 mg BID YOAV Administration Sitagliptin Phosphate 25 mg 08/15/19 07:00 08/17/19 06:37 Januvia - PO 25 mg DAILY@0700 [facility] Administration ASSESSMENT/PLAN: Problem List - Problems (1) Sepsis Assessment/Plan: Stage IV decubitus sacral ulcer with erythematous borders UA: 1+ LE, 2+ blood, 2+ protein Initial lactic acid: 1.9, f/u lactic 0.9 ESR: 119, CRP: 23.5 wound with pseudomonas, VRE, MSSA urine Cx VRE and blood Cx neg hx of MRSA in past, MRSA swab negative on meropenem per ID recommendations. MRI abd/pelvis withput evidence of osteomyelitis and no fluid collections seen vascular surgery (Dr. Solis) and no surgical intervention needed Code(s): A41.9 - SEPSIS, UNSPECIFIED ORGANISM Qualifiers: Sepsis type: sepsis due to unspecified organism Sepsis acute organ dysfunction status: with acute organ dysfunction Severe sepsis acute organ dysfunction type: acute renal failure Acute renal failure type: unspecified Severe sepsis shock status: without septic shock Qualified Code(s): A41.9 - Sepsis, unspecified organism; R65.20 - Severe sepsis without septic shock; N17.9 - Acute kidney failure, unspecified (2) Afib Assessment/Plan: EKG on admission :sinus tachycardia, no st elevations or t wave inversions On eliquis 2.5mg BID Code(s): I48.91 - UNSPECIFIED ATRIAL FIBRILLATION (3) Dilated bile duct Assessment/Plan: Chronically dilated but nonobstructed common bile duct based on current MRCP per GI. Possible repeated passage of GB stones. Cholecystectomy declined by family and patient. Code(s): K83.8 - OTHER SPECIFIED DISEASES OF BILIARY TRACT (4) Incontinence Assessment/Plan: patterson catheter placed to divert urine from entering sacral wound Code(s): R32 - UNSPECIFIED URINARY INCONTINENCE (5) AMILCAR (acute kidney injury) Assessment/Plan: improving Likely 2/2 sepsis BUN/Cr: 55/ 2.2-on admission (baseline Cr: 1.4) Now 1.6 continue to monitor kidney function Avoid nephrotoxic agents Code(s): N17.9 - ACUTE KIDNEY FAILURE, UNSPECIFIED (6) Anemia Assessment/Plan: anemia without evidence of bleeding. EGD and colonoscopy declined hematology outpatient v inpatient Code(s): D64.9 - ANEMIA, UNSPECIFIED (7) Diabetes Assessment/Plan: Cont home levemir 6 units BID BGM AC/HS with novlog sliding scale Code(s): E11.9 - TYPE 2 DIABETES MELLITUS WITHOUT COMPLICATIONS Qualifiers: Diabetes mellitus type: type 2 Diabetes mellitus retirement insulin use: with retirement use Diabetes mellitus complication status: with skin complications Diabetes mellitus complication detail: with foot ulcer Qualified Code(s): E11.621 - Type 2 diabetes mellitus with foot ulcer; L97.509 - Non-pressure chronic ulcer of other part of unspecified foot with unspecified severity; Z79.4 - [facility] (current) use of insulin (8) Prophylactic measure Assessment/Plan: fen tolerating PO monitor electrolytes on eliquis turn and position q 2 Code(s): Z29.9 - ENCOUNTER FOR PROPHYLACTIC MEASURES, UNSPECIFIED Visit type - Emergency Visit Emergency Visit: Yes ED Registration Date: 08/10/19 Care time: The patient presented to the Emergency Department on the above date and was hospitalized for further evaluation of their emergent condition. - New Patient This patient is new to me today: No - Critical Care Critical Care patient: No - Discharge Referral Referred to [facility] Med P.C.: No
[2019-08-17 10:42] LABS: BASO % 0.7 % (0-2.0); EOS % 7.1 % (0-4.5); HEMATOCRIT 30.5 % (32.4-45.2); HEMOGLOBIN 9.6 GM/dL (10.7-15.3); LYMPH % 21.5 % (8-40); MCHC 31.6 g/dl (32.0-36.0); MEAN CELL VOLUME 82.2 fl (80-96); MEAN PLT VOLUME 8.5 fl (7.5-11.1); MONO % 12.5 % (3.8-10.2); NEUT % 58.2 % (42.8-82.8); PLATELET COUNT 463 K/MM3 (134-434); RBC 3.71 M/mm3 (3.60-5.2); RDW 16.6 % (11.6-15.6)
[2019-08-17 11:14] LABS: ALBUMIN 2.1 g/dl (3.4-5.0); BILIRUBIN,TOTAL 0.2 mg/dL (0.2-1); BLOOD UREA NITROGEN 26.7 mg/dL (7-18); CALCIUM 8.8 mg/dL (8.5-10.1); CREATININE 1.6 mg/dL (0.55-1.3); POTASSIUM 4.1 mmol/L (3.5-5.1)
[2019-08-17 13:07] LABS: TRANSGLUTAMINASE IGA < 2 U/mL (0-3); TRANSGLUTAMINASE IGG < 2 U/mL (0-5)
--- NOTE | 2019-08-17 16:15 | PN ---
Progress Note, Physician History of Present Illness: stable very anxious - Current Medication List Current Medications: Active Medications Amino Acids (Prosource No Carb Liquid Pkt) 30 ml PO BID@0800,1730 [facility] Last Admin: 08/17/19 09:22 Dose: 30 ml Apixaban (Eliquis -) 2.5 mg PO BID [facility] Last Admin: 08/17/19 09:23 Dose: 2.5 mg Collagenase (Santyl -) 1 applic TP DAILY [facility]; Protocol Last Admin: 08/17/19 09:44 Dose: 1 applic Ferrous Sulfate (Feosol -) 325 mg PO DAILY [facility] Last Admin: 08/17/19 09:23 Dose: 325 mg Meropenem 1 gm/ Dextrose 100 mls @ 200 mls/hr IVPB Q12H [facility] Last Admin: 08/17/19 09:22 Dose: 200 mls/hr Insulin Aspart (Novolog Vial Sliding Scale -) 1 vial SQ TIDAC [facility]; Protocol Last Admin: 08/17/19 12:08 Dose: 4 units Insulin Detemir (Levemir Vial) 6 units SQ BID@0700,2200 [facility] Last Admin: 08/17/19 06:38 Dose: 6 unit Linezolid (Zyvox (Restricted To Id) -) 600 mg PO BID [facility] Last Admin: 08/17/19 09:23 Dose: 600 mg Lorazepam (Ativan -) 0.5 mg PO BID [facility] Last Admin: 08/17/19 09:23 Dose: 0.5 mg Pantoprazole Sodium (Protonix -) 40 mg PO DAILY [facility] Last Admin: 08/17/19 09:23 Dose: 40 mg Propranolol HCl (Inderal -) 20 mg PO BID [facility] Last Admin: 08/17/19 09:23 Dose: 20 mg Risperidone (Risperdal -) 0.25 mg PO BID [facility] Last Admin: 08/17/19 09:23 Dose: 0.25 mg Sitagliptin Phosphate (Januvia -) 25 mg PO DAILY@0700 [facility] Last Admin: 08/17/19 06:37 Dose: 25 mg - Objective Vital Signs: Vital Signs Temperature 99.4 F 08/17/19 14:00 Pulse Rate 78 08/17/19 14:00 Respiratory Rate 18 08/17/19 14:00 Blood Pressure 132/69 08/17/19 14:00 O2 Sat by Pulse Oximetry (%) 97 12/24/19 10:00 Constitutional: Yes: Calm, Anxious Cardiovascular: Yes: S1, S2 Respiratory: Yes: Regular, CTA Bilaterally Gastrointestinal: Yes: Normal Bowel Sounds, Soft Musculoskeletal: Yes: WNL Extremities: Yes: WNL Wound/Incision: Yes: Dressing Dry and Intact Neurological: Yes: Alert, Oriented Psychiatric: Yes: Alert, Oriented Labs: CBC, BMP 08/17/19 10:05 08/17/19 10:05 INR, PTT INR 1.42 (0.83-1.09) H 08/10/19 20:15 Assessment/Plan Problem List - Problems (1) Afib Code(s): I48.91 - UNSPECIFIED ATRIAL FIBRILLATION (2) Sepsis Code(s): A41.9 - SEPSIS, UNSPECIFIED ORGANISM Qualifiers: Sepsis type: sepsis due to unspecified organism Sepsis acute organ dysfunction status: with acute organ dysfunction Severe sepsis acute organ dysfunction type: acute renal failure Acute renal failure type: unspecified Severe sepsis shock status: without septic shock Qualified Code(s): A41.9 - Sepsis, unspecified organism; R65.20 - Severe sepsis without septic shock; N17.9 - Acute kidney failure, unspecified (3) AMILCAR (acute kidney injury) Code(s): N17.9 - ACUTE KIDNEY FAILURE, UNSPECIFIED (4) Diabetes Code(s): E11.9 - TYPE 2 DIABETES MELLITUS WITHOUT COMPLICATIONS Qualifiers: Diabetes mellitus type: type 2 Diabetes mellitus chcf insulin use: with chcf use Diabetes mellitus complication status: with skin complications Diabetes mellitus complication detail: with foot ulcer Qualified Code(s): E11.621 - Type 2 diabetes mellitus with foot ulcer; L97.509 - Non-pressure chronic ulcer of other part of unspecified foot with unspecified severity; Z79.4 - penitentiary (current) use of insulin (5) HLD (hyperlipidemia) Code(s): E78.5 - HYPERLIPIDEMIA, UNSPECIFIED (6) HTN (hypertension) Code(s): I10 - ESSENTIAL (PRIMARY) HYPERTENSION Qualifiers: Hypertension type: essential hypertension Qualified Code(s): I10 - Essential (primary) hypertension (7) Stage 4 skin ulcer of sacral region Code(s): L98.429 - NON-PRESSURE CHRONIC ULCER OF BACK WITH UNSPECIFIED SEVERITY plan continue current mgmt organisms noted abx rest continue current mgmt wound care
[2019-08-17] MEDS ORDERED: INSULIN (NOVOLOG) ASPART 100 UNITS/ML 10ML VIAL ONE (17:42)
[2019-08-18] MEDS: INSULIN SLIDING SCALE (NOVOLOG) 1 VIAL SQ SCH ×3 (06:27→16:35)
[2019-08-18] MEDS: INSULIN (LEVEMIR) 100 UNITS/ML UNITS SQ SCH ×2 (06:29→22:00)
[2019-08-18] MEDS ORDERED: MEROPENEM 1 GM VIAL (RESTRICTED TO ID) IVPB ONE ×2 (08:51→19:54)
[2019-08-18] MEDS ORDERED: DEXTROSE 5%-WATER 100 ML IVPB ONE ×2 (08:51→19:55)
[2019-08-18] MEDS: AMINO ACIDS/PROTEIN HYDROLYS 30 ML LIQUID.PKT PO SCH ×2 (09:07→17:40)
[2019-08-18] MEDS: MEROPENEM 1 GM in DEXTROSE 5%-WATER 100 ML IVPB SCH ×2 (09:07→20:11)
[2019-08-18] MEDS ORDERED: PT OWN MED DRAWER 7, Y5N ONE ×2 (09:12→21:26)
[2019-08-18] MEDS: APIXABAN 2.5 MG TABLET PO SCH ×2 (09:15→22:14)
[2019-08-18] MEDS: FERROUS SO4 325 MG TABLET (FP) PO SCH (09:15)
[2019-08-18] MEDS: LORazepam 0.5 MG TABLET PO SCH ×2 (09:15→22:13)
[2019-08-18] MEDS: PANTOPRAZOLE 40 MG TABLET (FP) PO SCH (09:15)
[2019-08-18] MEDS: LINEZOLID 600 MG TABLET (RESTRICTED TO ID) PO SCH ×2 (09:16→22:00)
[2019-08-18] MEDS: COLLAGENASE CLOSTRIDIUM HIST. 30 GRAMS TUBE TP SCH (09:16)
[2019-08-18] MEDS: risperiDONE 0.25 MG TABLET (FP) PO SCH ×2 (09:16→22:13)
--- NOTE | 2019-08-18 10:17 | PN ---
Teaching Attending Note Name of Resident: Mary Dominguez ATTENDING PHYSICIAN STATEMENT I saw and evaluated the patient. I reviewed the resident's note and discussed the case with the resident. I agree with the resident's findings and plan as documented with exceptions below. SUBJECTIVE: patient seen and examined. nonverbal, unable to assess for ROS. OBJECTIVE: Vital Signs Period Temp Pulse Resp BP Sys/Uribe Pulse Ox Last 24 Hr 99.3 F-99.4 F 74-92 18-18 119-151/69-79 97-98 Intake & Output 08/15/19 08/16/19 08/17/19 08/18/19 23:59 23:59 23:59 23:59 Intake Total 1790 900 750 0 Output Total 2300 3380 4200 1100 Balance -510 -2480 -3450 -1100 General: lying in bed, awake, contracted Chest: decreased effort, no rales or wheezing Abdomen:Soft, NT back: stage III decub ulcer lower sacral region, clean base, no active discharge , no surrounding erythema or swelling noted Extremities: contractures Home Medications Medication Instructions Recorded Apixaban [Eliquis -] 2.5 mg PO BID 05/19/18 Ferrous Sulfate [Feosol] 1 tab PO DAILY 05/19/18 LORazepam [Ativan] 1 mg PO BID 05/19/18 Mvit,Calcium,Iron,Mins/A.acids 1 each PO DAILY 05/19/18 [[place] Double Strength Capsule] Propranolol HCl 20 mg PO BID 05/19/18 Risperidone [Risperdal -] 0.25 mg PO BID 05/19/18 Insulin (Levemir) [Levemir Vial] 6 units SQ BID@0700,2200 units 06/26/18 Melatonin 3 mg PO DAILY 08/11/19 Sitagliptin Phosphate [Januvia] 25 mg PO DAILY 08/11/19 Active Medications Amino Acids (Prosource No Carb Liquid Pkt) 30 ml PO BID@0800,1730 [facility] Last Admin: 08/18/19 09:07 Dose: 30 ml Apixaban (Eliquis -) 2.5 mg PO BID [facility] Last Admin: 08/18/19 09:15 Dose: 2.5 mg Collagenase (Santyl -) 1 applic TP DAILY [facility]; Protocol Last Admin: 08/18/19 09:16 Dose: 1 applic Ferrous Sulfate (Feosol -) 325 mg PO DAILY [facility] Last Admin: 08/18/19 09:15 Dose: 325 mg Meropenem 1 gm/ Dextrose 100 mls @ 200 mls/hr IVPB Q12H [facility] Last Admin: 08/18/19 09:07 Dose: 200 mls/hr Insulin Aspart (Novolog Vial Sliding Scale -) 1 vial SQ TIDAC [facility]; Protocol Last Admin: 08/18/19 06:27 Dose: Not Given Insulin Detemir (Levemir Vial) 6 units SQ BID@0700,2200 [facility] Last Admin: 08/18/19 06:29 Dose: 6 unit Linezolid (Zyvox (Restricted To Id) -) 600 mg PO BID [facility] Last Admin: 08/18/19 09:16 Dose: 600 mg Lorazepam (Ativan -) 0.5 mg PO BID [facility] Last Admin: 08/18/19 09:15 Dose: 0.5 mg Pantoprazole Sodium (Protonix -) 40 mg PO DAILY [facility] Last Admin: 08/18/19 09:15 Dose: 40 mg Propranolol HCl (Inderal -) 20 mg PO BID [facility] Last Admin: 08/18/19 09:16 Dose: 20 mg Risperidone (Risperdal -) 0.25 mg PO BID [facility] Last Admin: 08/18/19 09:16 Dose: 0.25 mg Sitagliptin Phosphate (Januvia -) 25 mg PO DAILY@0700 [facility] Last Admin: 08/18/19 06:29 Dose: 25 mg Laboratory Results - last 24 hr 08/14/19 08/16/19 08/17/19 11:16 06:45 10:05 WBC 5.0 RBC 3.71 Hgb 9.6 L Hct 30.5 L MCV 82.2 MCH 26.0 MCHC 31.6 L RDW 16.6 H Plt Count 463 H MPV 8.5 Absolute Neuts (auto) 2.9 Neutrophils % 58.2 Lymphocytes % 21.5 D Monocytes % 12.5 H Eosinophils % 7.1 H Basophils % 0.7 Nucleated RBC % 0 Sodium Potassium Chloride Carbon Dioxide Anion Gap BUN Creatinine Est GFR (CKD-EPI)AfAm Est GFR (CKD-EPI)NonAf POC Glucometer Random Glucose Calcium Total Bilirubin AST ALT Alkaline Phosphatase Total Protein Albumin Tiss Transglutamin IgG < 2 Tiss Transglutamin IgA < 2 Blood Type O POSITIVE Antibody Screen Negative Crossmatch See Detail 08/17/19 08/17/19 08/17/19 10:05 12:03 17:02 WBC RBC Hgb Hct MCV MCH MCHC RDW Plt Count MPV Absolute Neuts (auto) Neutrophils % Lymphocytes % Monocytes % Eosinophils % Basophils % Nucleated RBC % Sodium 143 Potassium 4.1 Chloride 118 H Carbon Dioxide 17 L Anion Gap 8 BUN 26.7 H Creatinine 1.6 H Est GFR (CKD-EPI)AfAm 36.67 Est GFR (CKD-EPI)NonAf 31.64 POC Glucometer 212 158 Random Glucose 229 H Calcium 8.8 Total Bilirubin 0.2 AST 17 ALT 33 Alkaline Phosphatase 152 H Total Protein 7.0 Albumin 2.1 L Tiss Transglutamin IgG Tiss Transglutamin IgA Blood Type Antibody Screen Crossmatch 08/18/19 05:51 WBC RBC Hgb Hct MCV MCH MCHC RDW Plt Count MPV Absolute Neuts (auto) Neutrophils % Lymphocytes % Monocytes % Eosinophils % Basophils % Nucleated RBC % Sodium Potassium Chloride Carbon Dioxide Anion Gap BUN Creatinine Est GFR (CKD-EPI)AfAm Est GFR (CKD-EPI)NonAf POC Glucometer 145 Random Glucose Calcium Total Bilirubin AST ALT Alkaline Phosphatase Total Protein Albumin Tiss Transglutamin IgG Tiss Transglutamin IgA Blood Type Antibody Screen Crossmatch Microbiology 08/11/19 23:59 Blood - Peripheral Venous Blood Culture - Final NO GROWTH AFTER 5 DAYS INCUBATION 08/11/19 23:50 Blood - Peripheral Venous Blood Culture - Final NO GROWTH AFTER 5 DAYS INCUBATION 08/10/19 20:20 Blood - Peripheral Venous Blood Culture - Final NO GROWTH AFTER 5 DAYS INCUBATION 08/10/19 20:15 Blood - Peripheral Venous Blood Culture - Final NO GROWTH AFTER 5 DAYS INCUBATION 08/11/19 00:00 Ulcer Gram Stain - Final 08/11/19 00:00 Ulcer Wound Culture - Final Pseudomonas Aeruginosa Vr Ec Faecalis Staphylococcus Aureus 08/12/19 22:30 Stool Clostridioides difficile Antigen - Final 08/12/19 22:30 Stool Clostridioides difficile Toxin Assay - Final 08/10/19 20:10 Urine - Urine - Catheterized Urine Culture - Final Vr Ec Faecalis 08/12/19 12:30 Nares - Right Nares MRSA Screen - Final NO MRSA ISOLATED 08/12/19 12:30 Nares - Mrsa Screen - Left MRSA Screen - Final NO MRSA ISOLATED 08/12/19 12:30 Rectal Swab VRE Culture - Final NO VREF ISOLATED ASSESSMENT AND PLAN: 74 year old female (from [facility]) with PMH of HTN, IDDM, HLD, chronic Afib (on eliquis), decubitus sacral ulcer, functional quadriplegia sent from [place] with anemia -stage III decubitus sacral ulcer with reported wound infection on admission -Iron deficiency anemia -Chronically dilated CBD -HTN -IDDM -HLD -Chronic atrial fibrillation on eliquis -Functional quadriplegia Plan: Wound clean, afebrile normal wbc. Meropenem/zyvox. Discuss with ID for abx taper vs ?dc. Wound care with collagenase s/p 1 unit PRBC, h/h stable. FOBT neg, no gross evidence of bleed. GI input noted, family reportedly declined EGD/colonoscopy. Monitor for now. Continue PO Fe. Chronically dilated CBD, LFts stable, no acute concerns. Januvia/Levemir, ISS, eliquis/propranolol, ativan/risperidone DVTPPX on eliquis Dispo Dc back to [place] tomorrow +/- PO abx if disposition arranged and no new concerns. Discussed with nursing.
[2019-08-18 10:47] LABS: BASO % 0.7 % (0-2.0); EOS % 7.1 % (0-4.5); HEMATOCRIT 30.8 % (32.4-45.2); HEMOGLOBIN 9.7 GM/dL (10.7-15.3); LYMPH % 30.8 % (8-40); MCH 25.8 pg (25.7-33.7); MCHC 31.5 g/dl (32.0-36.0); MEAN CELL VOLUME 81.9 fl (80-96); MEAN PLT VOLUME 8.5 fl (7.5-11.1); MONO % 11.5 % (3.8-10.2); NEUT % 49.9 % (42.8-82.8); PLATELET COUNT 488 K/MM3 (134-434); RBC 3.76 M/mm3 (3.60-5.2); RDW 16.7 % (11.6-15.6); WHITE BLOOD COUNT 4.7 K/mm3 (4.0-10.0)
[2019-08-18 11:14] LABS: ALBUMIN 2.1 g/dl (3.4-5.0); BILIRUBIN,TOTAL 0.2 mg/dL (0.2-1); CREATININE 1.6 mg/dL (0.55-1.3); TOT PROT 7.2 g/dl (6.4-8.2)
--- NOTE | 2019-08-18 11:33 | PN ---
<Mary Dominguez - Last Filed: 08/18/19 13:46> Physical Exam: SUBJECTIVE: Patient seen and examined this AM. No acute overnight events. OBJECTIVE: Vital Signs Period Temp Pulse Resp BP Sys/Uribe Pulse Ox Last 24 Hr 99.3 F-99.4 F 74-92 18-18 119-151/69-79 97-98 GENERAL: Awake, NAD HEAD: NCAT LUNGS: Diminished breath sounds at the bases, No Wheezing HEART: Regular rate and rhythm, S1 S2 ABDOMEN: Soft, nontender, nondistended, + bowel sounds, no guarding EXTREMITIES: no edema NEUROLOGICAL: Cranial nerves II through XII grossly intact. SKIN: Stage 3 sacral decubitus ulcer, No active drainage, no surrounding erythema Laboratory Last Values WBC 4.7 K/mm3 (4.0-10.0) 08/18/19 10:20 RBC 3.76 M/mm3 (3.60-5.2) 08/18/19 10:20 Hgb 9.7 GM/dL (10.7-15.3) L 08/18/19 10:20 Hct 30.8 % (32.4-45.2) L 08/18/19 10:20 MCV 81.9 fl (80-96) 08/18/19 10:20 MCH 25.8 pg (25.7-33.7) 08/18/19 10:20 MCHC 31.5 g/dl (32.0-36.0) L 08/18/19 10:20 RDW 16.7 % (11.6-15.6) H 08/18/19 10:20 Plt Count 488 K/MM3 (134-434) H 08/18/19 10:20 MPV 8.5 fl (7.5-11.1) 08/18/19 10:20 Absolute Neuts (auto) 2.4 K/mm3 (1.5-8.0) 08/18/19 10:20 Neutrophils % 49.9 % (42.8-82.8) 08/18/19 10:20 Neutrophils % (Manual) 75.2 % (42.8-82.8) 08/12/19 06:50 Band Neutrophils % 0.0 % 08/12/19 06:50 Lymphocytes % 30.8 % (8-40) D 08/18/19 10:20 Lymphocytes % (Manual) 13.3 % (8-40) 08/12/19 06:50 Monocytes % 11.5 % (3.8-10.2) H 08/18/19 10:20 Monocytes % (Manual) 4 % (3.8-10.2) 08/12/19 06:50 Eosinophils % 7.1 % (0-4.5) H 08/18/19 10:20 Eosinophils % (Manual) 6.2 % (0-4.5) H 08/12/19 06:50 Basophils % 0.7 % (0-2.0) 08/18/19 10:20 Basophils % (Manual) 0.9 % (0-2.0) 08/12/19 06:50 Myelocytes % (Man) 0 % (0-2) 08/12/19 06:50 Promyelocytes % (Man) 0 % (0-2) 08/12/19 06:50 Blast Cells % (Manual) 0 % (0-0) 08/12/19 06:50 Nucleated RBC % 0 % (0-0) 08/18/19 10:20 Metamyelocytes 0 % (0-2) 08/12/19 06:50 Hypochromia 0 08/12/19 06:50 Platelet Estimate Normal 08/16/19 06:45 Platelet Comment Present 08/16/19 06:45 Polychromasia 0 08/12/19 06:50 Poikilocytosis 0 08/12/19 06:50 Anisocytosis 0 08/12/19 06:50 Microcytosis 0 08/12/19 06:50 Macrocytosis 0 08/12/19 06:50 ESR 119 mm/hr (0-30) H 08/11/19 01:22 Retic Count 1.72 % (0.5-1.5) H 08/16/19 06:45 Haptoglobin 501 mg/dL (42-346) H 08/16/19 06:45 PT with INR 16.80 SEC (9.7-13.0) H 08/10/19 20:15 INR 1.42 (0.83-1.09) H 08/10/19 20:15 PTT (Actin FS) 45.2 SECONDS (25.2-36.5) H 08/10/19 20:15 VBG pH 7.41 (7.31-7.41) 08/10/19 20:15 POC VBG pCO2 35.9 mmHg (38-52) L 08/10/19 20:15 POC VBG pO2 < 49 mmHg (28-48) H 08/10/19 20:15 VBG HCO3 22.3 mmol/L (23-29) L 08/10/19 20:15 VBG O2 Sat (Sharita) 79.1 % (70-80) 08/10/19 20:15 VBG Base Excess -1.4 meq/l (-2-2) 08/10/19 20:15 Sodium 143 mmol/L (136-145) 08/18/19 10:20 Potassium 4.0 mmol/L (3.5-5.1) 08/18/19 10:20 Chloride 117 mmol/L (98-107) H 08/18/19 10:20 Carbon Dioxide 15 mmol/L (21-32) L 08/18/19 10:20 Anion Gap 10 MMOL/L (8-16) 08/18/19 10:20 BUN 32.0 mg/dL (7-18) H 08/18/19 10:20 Creatinine 1.6 mg/dL (0.55-1.3) H 08/18/19 10:20 Est GFR (CKD-EPI)AfAm 36.67 08/18/19 10:20 Est GFR (CKD-EPI)NonAf 31.64 08/18/19 10:20 POC Glucometer 145 UNITS (80-120) 08/18/19 05:51 Random Glucose 276 mg/dL (74-106) H 08/18/19 10:20 Lactic Acid 0.9 mmol/L (0.4-2.0) 08/11/19 00:20 Calcium 9.0 mg/dL (8.5-10.1) 08/18/19 10:20 Magnesium 1.7 mg/dL (1.8-2.4) L 08/16/19 06:13 Total Bilirubin 0.2 mg/dL (0.2-1) 08/18/19 10:20 GGT 104 U/L (5-85) H 08/16/19 06:13 AST 22 U/L (15-37) 08/18/19 10:20 ALT 38 U/L (13-61) 08/18/19 10:20 Alkaline Phosphatase 158 U/L (45-117) H 08/18/19 10:20 LD Total 154 U/L (84-246) 08/16/19 06:13 Creatine Kinase 78 U/L (26-192) 08/11/19 01:22 Troponin I < 0.02 ng/ml (0.00-0.05) 08/10/19 20:15 C-Reactive Protein 8.0 MG/DL (0.00-0.3) H 08/16/19 06:13 Total Protein 7.2 g/dl (6.4-8.2) 08/18/19 10:20 Albumin 2.1 g/dl (3.4-5.0) L 08/18/19 10:20 Total Amylase 46 U/L (25-115) 08/16/19 06:13 Lipase 172 U/L (73-393) 08/16/19 06:13 CA 19-9 Antigen 24 U/mL (0-35) 08/16/19 06:45 Vitamin B12 502 pg/ml (193-986) 08/16/19 06:13 Serum Folate 23 ng/mL (3.1-17.5) H 08/16/19 06:13 Urine Color Yellow 08/10/19 20:10 Urine Appearance Clear 08/10/19 20:10 Urine pH 6.5 (5.0-8.0) 08/10/19 20:10 Ur Specific [place] 1.008 (1.010-1.035) L 08/10/19 20:10 Urine Protein 2+ (NEGATIVE) H 08/10/19 20:10 Urine Glucose (UA) 1+ (NEGATIVE) H 08/10/19 20:10 Urine Ketones Negative (NEGATIVE) 08/10/19 20:10 Urine Blood 2+ (NEGATIVE) H 08/10/19 20:10 Urine Nitrite Negative (NEGATIVE) 08/10/19 20:10 Urine Bilirubin Negative (NEGATIVE) 08/10/19 20:10 Urine Urobilinogen 0.2 mg/dL (0.2-1.0) 08/10/19 20:10 Ur Leukocyte Esterase 1+ (NEGATIVE) H 08/10/19 20:10 Urine WBC (Auto) 23 /hpf (0-5) 08/10/19 20:10 Urine RBC (Auto) 4 /hpf (0-4) 08/10/19 20:10 Urine Casts (Auto) 1 /lpf (0-8) 08/10/19 20:10 U Epithel Cells (Auto) 0.1 /HPF (0-5/HPF) 08/10/19 20:10 Urine Bacteria (Auto) 141.4 /hpf (NEGATIVE) 08/10/19 20:10 Stool Occult Blood Negative (NEGATIVE) 08/14/19 16:00 Tiss Transglutamin IgG < 2 U/mL (0-5) 08/16/19 06:45 Tiss Transglutamin IgA < 2 U/mL (0-3) 08/16/19 06:45 Influenza A (Rapid) Negative (Negative) 08/10/19 20:13 Influenza B (Rapid) Negative (Negative) 08/10/19 20:13 Blood Type O POSITIVE 08/14/19 11:16 Antibody Screen Negative 08/14/19 11:16 Antibody Identification Negative 08/10/19 20:15 Antigen Identification No Result Required. 08/10/19 20:15 Crossmatch See Detail 08/14/19 11:16 Microbiology 08/11/19 23:59 Blood - Peripheral Venous Blood Culture - Final NO GROWTH AFTER 5 DAYS INCUBATION 08/11/19 23:50 Blood - Peripheral Venous Blood Culture - Final NO GROWTH AFTER 5 DAYS INCUBATION 08/10/19 20:20 Blood - Peripheral Venous Blood Culture - Final NO GROWTH AFTER 5 DAYS INCUBATION 08/10/19 20:15 Blood - Peripheral Venous Blood Culture - Final NO GROWTH AFTER 5 DAYS INCUBATION 08/11/19 00:00 Ulcer Gram Stain - Final 08/11/19 00:00 Ulcer Wound Culture - Final Pseudomonas Aeruginosa Vr Ec Faecalis Staphylococcus Aureus 08/12/19 22:30 Stool Clostridioides difficile Antigen - Final 08/12/19 22:30 Stool Clostridioides difficile Toxin Assay - Final 08/10/19 20:10 Urine - Urine - Catheterized Urine Culture - Final Vr Ec Faecalis 08/12/19 12:30 Nares - Right Nares MRSA Screen - Final NO MRSA ISOLATED 08/12/19 12:30 Nares - Mrsa Screen - Left MRSA Screen - Final NO MRSA ISOLATED 08/12/19 12:30 Rectal Swab VRE Culture - Final NO VREF ISOLATED Active Medications Amino Acids (Prosource No Carb Liquid Pkt) 30 ml PO BID@0800,1730 [facility] Last Admin: 08/18/19 09:07 Dose: 30 ml Apixaban (Eliquis -) 2.5 mg PO BID [facility] Last Admin: 08/18/19 09:15 Dose: 2.5 mg Collagenase (Santyl -) 1 applic TP DAILY [facility]; Protocol Last Admin: 08/18/19 09:16 Dose: 1 applic Ferrous Sulfate (Feosol -) 325 mg PO DAILY [facility] Last Admin: 08/18/19 09:15 Dose: 325 mg Meropenem 1 gm/ Dextrose 100 mls @ 200 mls/hr IVPB Q12H [facility] Last Admin: 08/18/19 09:07 Dose: 200 mls/hr Insulin Aspart (Novolog Vial Sliding Scale -) 1 vial SQ TIDAC [facility]; Protocol Last Admin: 08/18/19 06:27 Dose: Not Given Insulin Detemir (Levemir Vial) 6 units SQ BID@0700,2200 [facility] Last Admin: 08/18/19 06:29 Dose: 6 unit Linezolid (Zyvox (Restricted To Id) -) 600 mg PO BID [facility] Last Admin: 08/18/19 09:16 Dose: 600 mg Lorazepam (Ativan -) 0.5 mg PO BID [facility] Last Admin: 08/18/19 09:15 Dose: 0.5 mg Pantoprazole Sodium (Protonix -) 40 mg PO DAILY [facility] Last Admin: 08/18/19 09:15 Dose: 40 mg Propranolol HCl (Inderal -) 20 mg PO BID [facility] Last Admin: 08/18/19 09:16 Dose: 20 mg Risperidone (Risperdal -) 0.25 mg PO BID [facility] Last Admin: 08/18/19 09:16 Dose: 0.25 mg Sitagliptin Phosphate (Januvia -) 25 mg PO DAILY@0700 [facility] Last Admin: 08/18/19 06:29 Dose: 25 mg ASSESSMENT/PLAN: 74 y/o F with PMHx HTN, DM2, HLD, Afib (on eliquis), stage 3 decubitus ulcer, functional quadriplegia presents with sepsis. #Sepsis -likely due to decubitus sacral ulcer -Now Afebrile, without tachycardia or leukocytosis -Follow cultures -Continue Meropenem, Linezolid (Day 9 ABx course) -Wound care -ID, Vascular surgery consulted, Appreciate rec's, No acute intervention #Afib, Controlled -Continue home dose DOAC, BB #AMILCAR, Improving -Likely prerenal in the setting of sepsis -Monitor urine output, Kidney function #Iron deficiency anemia -s/p 1 unit pRBC this admission, h&h stable, FOBT neg -GI Consulted, appreciate rec's family declines EGD/colonoscopy -Continue PO Ferrous Sulfate -Monitor H&H #DM2 -ISS BGMs ACHS -Home dose Levemir, Sitagliptin #HTN -Continue home dose BB #FEN -PO Fluids -Replete lytes PRN -Diabetic/Sodim diet #PPx -DVT: DOAC Dispo: Monitor on med-surg Code status:DNR/DNI Visit type - Emergency Visit Emergency Visit: Yes ED Registration Date: 08/10/19 Care time: The patient presented to the Emergency Department on the above date and was hospitalized for further evaluation of their emergent condition. - New Patient This patient is new to me today: Yes Date on this admission: 08/18/19 - Critical Care Critical Care patient: No ATTENDING PHYSICIAN STATEMENT I saw and evaluated the patient. I reviewed the resident's note and discussed the case with the resident. I agree with the resident's findings and plan as documented. SUBJECTIVE: OBJECTIVE: ASSESSMENT AND PLAN: <Omid Adames - Last Filed: 08/19/19 07:46> Physical Exam: Correction: neuro exam: patient with functional quadriplegia ATTENDING PHYSICIAN STATEMENT I saw and evaluated the patient. I reviewed the resident's note and discussed the case with the resident. I agree with the resident's findings and plan as documented. SUBJECTIVE: OBJECTIVE: ASSESSMENT AND PLAN:
[2019-08-19] MEDS: INSULIN SLIDING SCALE (NOVOLOG) 1 VIAL SQ SCH ×3 (06:18→16:42)
[2019-08-19] MEDS: INSULIN (LEVEMIR) 100 UNITS/ML UNITS SQ SCH ×2 (06:18→21:58)
[2019-08-19] MEDS ORDERED: INSULIN (NOVOLOG) ASPART 100 UNITS/ML 10ML VIAL ONE (06:32)
[2019-08-19 08:43] LABS: BASO % 0.7 % (0-2.0); EOS % 6.4 % (0-4.5); HEMATOCRIT 30.5 % (32.4-45.2); HEMOGLOBIN 9.7 GM/dL (10.7-15.3); LYMPH % 36.1 % (8-40); MCH 26.2 pg (25.7-33.7); MCHC 31.7 g/dl (32.0-36.0); MEAN CELL VOLUME 82.7 fl (80-96); MEAN PLT VOLUME 8.4 fl (7.5-11.1); MONO % 13.8 % (3.8-10.2); PLATELET COUNT 484 K/MM3 (134-434); RBC 3.68 M/mm3 (3.60-5.2); RDW 17.3 % (11.6-15.6)
[2019-08-19 09:03] LABS: ALBUMIN 2.2 g/dl (3.4-5.0); BILIRUBIN,TOTAL 0.2 mg/dL (0.2-1); BLOOD UREA NITROGEN 31.9 mg/dL (7-18); CALCIUM 8.8 mg/dL (8.5-10.1); CREATININE 1.5 mg/dL (0.55-1.3); POTASSIUM 4.1 mmol/L (3.5-5.1); TOT PROT 7.3 g/dl (6.4-8.2)
[2019-08-19] MEDS ORDERED: DEXTROSE 5%-WATER 100 ML IVPB ONE ×2 (11:17→20:37)
[2019-08-19] MEDS ORDERED: MEROPENEM 1 GM VIAL (RESTRICTED TO ID) IVPB ONE ×2 (11:17→20:37)
[2019-08-19] MEDS: MEROPENEM 1 GM in DEXTROSE 5%-WATER 100 ML IVPB SCH ×2 (11:25→20:49)
[2019-08-19] MEDS: LORazepam 0.5 MG TABLET PO SCH ×2 (11:29→21:57)
[2019-08-19] MEDS: AMINO ACIDS/PROTEIN HYDROLYS 30 ML LIQUID.PKT PO SCH ×2 (11:29→17:11)
[2019-08-19] MEDS: PANTOPRAZOLE 40 MG TABLET (FP) PO SCH (11:29)
[2019-08-19] MEDS: LINEZOLID 600 MG TABLET (RESTRICTED TO ID) PO SCH (11:30)
[2019-08-19] MEDS: FERROUS SO4 325 MG TABLET (FP) PO SCH (11:30)
[2019-08-19] MEDS: APIXABAN 2.5 MG TABLET PO SCH ×2 (11:30→21:57)
[2019-08-19] MEDS: COLLAGENASE CLOSTRIDIUM HIST. 30 GRAMS TUBE TP SCH (11:31)
[2019-08-19] MEDS: risperiDONE 0.25 MG TABLET (FP) PO SCH ×2 (11:31→21:57)
--- NOTE | 2019-08-19 11:35 | PN ---
Progress Note, Physician History of Present Illness: stable no new issues - Current Medication List Current Medications: Active Medications Amino Acids (Prosource No Carb Liquid Pkt) 30 ml PO BID@0800,1730 [facility] Last Admin: 08/19/19 11:29 Dose: 30 ml Apixaban (Eliquis -) 2.5 mg PO BID [facility] Last Admin: 08/19/19 11:30 Dose: 2.5 mg Collagenase (Santyl -) 1 applic TP DAILY [facility]; Protocol Last Admin: 08/19/19 11:31 Dose: 1 applic Ferrous Sulfate (Feosol -) 325 mg PO DAILY [facility] Last Admin: 08/19/19 11:30 Dose: 325 mg Meropenem 1 gm/ Dextrose 100 mls @ 200 mls/hr IVPB Q12H [facility] Last Admin: 08/19/19 11:25 Dose: 200 mls/hr Insulin Aspart (Novolog Vial Sliding Scale -) 1 vial SQ TIDAC [facility]; Protocol Last Admin: 08/19/19 06:18 Dose: 2 units Insulin Detemir (Levemir Vial) 6 units SQ BID@0700,2200 [facility] Last Admin: 08/19/19 06:18 Dose: 6 unit Linezolid (Zyvox (Restricted To Id) -) 600 mg PO BID [facility] Last Admin: 08/19/19 11:30 Dose: 600 mg Lorazepam (Ativan -) 0.5 mg PO BID [facility] Last Admin: 08/19/19 11:29 Dose: 0.5 mg Pantoprazole Sodium (Protonix -) 40 mg PO DAILY [facility] Last Admin: 08/19/19 11:29 Dose: 40 mg Propranolol HCl (Inderal -) 20 mg PO BID [facility] Last Admin: 08/19/19 11:30 Dose: 20 mg Risperidone (Risperdal -) 0.25 mg PO BID [facility] Last Admin: 08/19/19 11:31 Dose: 0.25 mg Sitagliptin Phosphate (Januvia -) 25 mg PO DAILY@0700 [facility] Last Admin: 08/19/19 06:18 Dose: 25 mg - Objective Vital Signs: Vital Signs Temperature 98.6 F 08/19/19 06:05 Pulse Rate 89 08/19/19 06:05 Respiratory Rate 18 08/19/19 06:05 Blood Pressure 148/66 08/19/19 06:05 O2 Sat by Pulse Oximetry (%) 99 08/18/19 21:00 Constitutional: Yes: No Distress, Calm Cardiovascular: Yes: S1, S2 Respiratory: Yes: Regular, CTA Bilaterally Gastrointestinal: Yes: Normal Bowel Sounds, Soft Musculoskeletal: Yes: WNL Extremities: Yes: Other Wound/Incision: Yes: Dressing Dry and Intact Neurological: Yes: Alert, Oriented Psychiatric: Yes: Alert, Oriented Labs: CBC, BMP 08/19/19 08:10 08/19/19 08:10 INR, PTT INR 1.42 (0.83-1.09) H 08/10/19 20:15 Assessment/Plan Problem List - Problems (1) Afib Code(s): I48.91 - UNSPECIFIED ATRIAL FIBRILLATION (2) Sepsis Code(s): A41.9 - SEPSIS, UNSPECIFIED ORGANISM Qualifiers: Sepsis type: sepsis due to unspecified organism Sepsis acute organ dysfunction status: with acute organ dysfunction Severe sepsis acute organ dysfunction type: acute renal failure Acute renal failure type: unspecified Severe sepsis shock status: without septic shock Qualified Code(s): A41.9 - Sepsis, unspecified organism; R65.20 - Severe sepsis without septic shock; N17.9 - Acute kidney failure, unspecified (3) AMILCAR (acute kidney injury) Code(s): N17.9 - ACUTE KIDNEY FAILURE, UNSPECIFIED (4) Diabetes Code(s): E11.9 - TYPE 2 DIABETES MELLITUS WITHOUT COMPLICATIONS Qualifiers: Diabetes mellitus type: type 2 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 terminal and repeater insulin use: with technician terminal and repeater use Diabetes mellitus complication status: with skin complications Diabetes mellitus complication detail: with foot ulcer Qualified Code(s): E11.621 - Type 2 diabetes mellitus with foot ulcer; L97.509 - Non-pressure chronic ulcer of other part of unspecified foot with unspecified severity; Z79.4 - MCC (current) use of insulin (5) HLD (hyperlipidemia) Code(s): E78.5 - HYPERLIPIDEMIA, UNSPECIFIED (6) HTN (hypertension) Code(s): I10 - ESSENTIAL (PRIMARY) HYPERTENSION Qualifiers: Hypertension type: essential hypertension Qualified Code(s): I10 - Essential (primary) hypertension (7) Stage 4 skin ulcer of sacral region Code(s): L98.429 - NON-PRESSURE CHRONIC ULCER OF BACK WITH UNSPECIFIED SEVERITY plan continue current mgmt organisms noted abx rest continue current mgmt wound care
--- NOTE | 2019-08-19 16:35 | PN ---
Physical Exam: SUBJECTIVE: Patient seen and examined at the bedside. in no acute distress. OBJECTIVE: Patient is a 74 year old female (from [facility]) with PMH of HTN , DM2, HLD, chronic Afib (on eliquis), stage IV decubitus sacral ulcer, functional quadriplegia BIBEMS from [place] for anemia (Hgb 8.1). Pt has complained of mild abdominal discomfort and decreased appetite over the past 2 days. Also notes subjective fevers and chills. Upon arrival to the ED, pt was tachycardic at 129, febrile at 103.6. She denies any nausea, vomiting, chest pain, SOB, urinary symptoms, headaches. per ID, patient will complete Meropenemon 08/20/2019, then can be transitioned to Augmentin. Vital Signs Period Temp Pulse Resp BP Sys/Uribe Pulse Ox Last 24 Hr 98.2 F-99.1 F 78-89 18-18 118-149/55-78 98-99 GENERAL: The patient is awake, alert, in no acute distress. resting tremor left arm HEAD: Normal with no signs of trauma. EYES: PERRL, extraocular movements intact, sclera anicteric, conjunctiva clear. No ptosis. ENT: Ears normal, nares patent, oropharynx clear without exudates, moist mucous membranes. NECK: Trachea midline, full range of motion, supple. LUNGS: congested on upper lobes, lower lobes clear, tolerating room air HEART: Regular rate and rhythm ABDOMEN: mildly distended, + bowel sounds EXTREMITIES: no edema. NEUROLOGICAL: Normal speech, gait not observed. PSYCH: withdrawn SKIN: stage 4 sacrum Laboratory Results - last 24 hr 08/19/19 08/19/19 08/19/19 05:31 08:10 08:10 WBC 5.0 RBC 3.68 Hgb 9.7 L Hct 30.5 L MCV 82.7 MCH 26.2 MCHC 31.7 L RDW 17.3 H Plt Count 484 H MPV 8.4 Absolute Neuts (auto) 2.2 Neutrophils % 43.0 Lymphocytes % 36.1 Monocytes % 13.8 H Eosinophils % 6.4 H Basophils % 0.7 Nucleated RBC % 0 Sodium 140 Potassium 4.1 Chloride 116 H Carbon Dioxide 16 L Anion Gap 8 BUN 31.9 H Creatinine 1.5 H Est GFR (CKD-EPI)AfAm 39.64 Est GFR (CKD-EPI)NonAf 34.21 POC Glucometer 188 Random Glucose 198 H Calcium 8.8 Total Bilirubin 0.2 AST 23 ALT 41 Alkaline Phosphatase 142 H Total Protein 7.3 Albumin 2.2 L 08/19/19 11:36 WBC RBC Hgb Hct MCV MCH MCHC RDW Plt Count MPV Absolute Neuts (auto) Neutrophils % Lymphocytes % Monocytes % Eosinophils % Basophils % Nucleated RBC % Sodium Potassium Chloride Carbon Dioxide Anion Gap BUN Creatinine Est GFR (CKD-EPI)AfAm Est GFR (CKD-EPI)NonAf POC Glucometer 224 Random Glucose Calcium Total Bilirubin AST ALT Alkaline Phosphatase Total Protein Albumin Active Medications Generic Name Dose Route Start Last Admin Trade Name Freq PRN Reason Stop Dose Admin Amino Acids 30 ml 08/13/19 17:30 08/19/19 11:29 Prosource No Carb Liquid Pkt PO 30 ml BID@0800,1730 [facility] Administration Amoxicillin/Clavulanate Potassium 1 tab 08/19/19 17:30 Augmentin - 500mg Tablet PO BID@0800,1730 [facility] Apixaban 2.5 mg 08/11/19 10:00 08/19/19 11:30 Eliquis - PO 2.5 mg BID [facility] Administration Collagenase 1 applic 08/11/19 18:00 08/19/19 11:31 Santyl - TP 1 applic DAILY [facility] Administration Protocol Ferrous Sulfate 325 mg 08/14/19 16:30 08/19/19 11:30 Feosol - PO 325 mg DAILY [facility] Administration Meropenem 1 gm/ Dextrose 100 mls @ 200 mls/hr 08/15/19 20:15 08/19/19 11:25 IVPB 200 mls/hr Q12H [facility] Administration Insulin Aspart 1 vial 08/11/19 07:00 08/19/19 11:42 Novolog Vial Sliding Scale - SQ 4 units TIDAC [facility] Administration Protocol Insulin Detemir 6 units 08/11/19 07:00 08/19/19 06:18 Levemir Vial SQ 6 unit BID@0700,2200 [facility] Administration Lorazepam 0.5 mg 08/11/19 22:00 08/19/19 11:29 Ativan - PO 0.5 mg BID [facility] Administration Pantoprazole Sodium 40 mg 08/15/19 16:30 08/19/19 11:29 Protonix - PO 40 mg DAILY [facility] Administration Propranolol HCl 20 mg 08/11/19 10:00 08/19/19 11:30 Inderal - PO 20 mg BID [facility] Administration Risperidone 0.25 mg 08/11/19 10:00 08/19/19 11:31 Risperdal - PO 0.25 mg BID [facility] Administration Sitagliptin Phosphate 25 mg 08/15/19 07:00 08/19/19 06:18 Januvia - PO 25 mg DAILY@0700 [facility] Administration ASSESSMENT/PLAN: Problem List - Problems (1) Sepsis Assessment/Plan: Stage IV decubitus sacral ulcer with erythematous borders, no odor or drainage. on santyl. UA: 1+ LE, 2+ blood, 2+ protein ESR: 119, CRP: 23.5 wound with pseudomonas, VRE, MSSA urine Cx VRE and blood Cx neg hx of MRSA in past, MRSA swab negative on meropenem per ID, to complete on 08/20/2019 MRI abd/pelvis withput evidence of osteomyelitis and no fluid collections seen vascular surgery (Dr. Solis) and no surgical intervention recommended Code(s): A41.9 - SEPSIS, UNSPECIFIED ORGANISM Qualifiers: Sepsis type: sepsis due to unspecified organism Sepsis acute organ dysfunction status: with acute organ dysfunction Severe sepsis acute organ dysfunction type: acute renal failure Acute renal failure type: unspecified Severe sepsis shock status: without septic shock Qualified Code(s): A41.9 - Sepsis, unspecified organism; R65.20 - Severe sepsis without septic shock; N17.9 - Acute kidney failure, unspecified (2) Afib Assessment/Plan: EKG on admission :sinus tachycardia, no st elevations or t wave inversions On eliquis 2.5mg BID Code(s): I48.91 - UNSPECIFIED ATRIAL FIBRILLATION (3) Dilated bile duct Assessment/Plan: Chronically dilated but nonobstructed common bile duct based on current MRCP per GI. Possible repeated passage of GB stones. Cholecystectomy declined by family and patient. Code(s): K83.8 - OTHER SPECIFIED DISEASES OF BILIARY TRACT (4) Incontinence Assessment/Plan: patterson catheter placed to divert urine from entering sacral wound Code(s): R32 - UNSPECIFIED URINARY INCONTINENCE (5) AMILCAR (acute kidney injury) Assessment/Plan: improving Likely 2/2 sepsis BUN/Cr: 55/ 2.2-on admission (baseline Cr: 1.4) Now 1.5 continue to monitor kidney function Avoid nephrotoxic agents Code(s): N17.9 - ACUTE KIDNEY FAILURE, UNSPECIFIED (6) Anemia Assessment/Plan: anemia without evidence of bleeding. EGD and colonoscopy declined hematology outpatient v inpatient Code(s): D64.9 - ANEMIA, UNSPECIFIED (7) Diabetes Assessment/Plan: Cont home levemir 6 units BID BGM AC/HS with novlog sliding scale Code(s): E11.9 - TYPE 2 DIABETES MELLITUS WITHOUT COMPLICATIONS Qualifiers: Diabetes mellitus type: type 2 Diabetes mellitus superintendent marine oil terminal insulin use: with superintendent marine oil terminal use Diabetes mellitus complication status: with skin complications Diabetes mellitus complication detail: with foot ulcer Qualified Code(s): E11.621 - Type 2 diabetes mellitus with foot ulcer; L97.509 - Non-pressure chronic ulcer of other part of unspecified foot with unspecified severity; Z79.4 - residential (current) use of insulin (8) Prophylactic measure Assessment/Plan: fen tolerating PO monitor electrolytes on eliquis turn and position q 2 Code(s): Z29.9 - ENCOUNTER FOR PROPHYLACTIC MEASURES, UNSPECIFIED Visit type - Emergency Visit Emergency Visit: Yes ED Registration Date: 08/10/19 Care time: The patient presented to the Emergency Department on the above date and was hospitalized for further evaluation of their emergent condition. - New Patient This patient is new to me today: No - Critical Care Critical Care patient: No - Discharge Referral Referred to [facility] No
[2019-08-19] MEDS: AMOX TR/POT CLAV 500MG/125MG TABLETS (FP) PO SCH (17:11)
[2019-08-19] MEDS ORDERED: PT OWN MED DRAWER 7, Y5N ONE (21:54)
[2019-08-20] MEDS: INSULIN (LEVEMIR) 100 UNITS/ML UNITS SQ SCH ×2 (07:17→21:05)
[2019-08-20] MEDS: INSULIN SLIDING SCALE (NOVOLOG) 1 VIAL SQ SCH ×3 (07:17→17:32)
--- NOTE | 2019-08-20 08:01 | PN ---
Progress Note, Physician Chief Complaint: No complaints offered today. States she is ready to go back to the [place] but would like to go tomorrow. History of Present Illness: Ms. Estrada is a 74 year old female with PMH of HTN, DM2, HLD, chronic Afib (on eliquis), stage IV decubitus sacral ulcer, functional quadriplegia BIBEMS from [facility] for anemia (Hgb 8.1). Upon arrival to the ED, pt was tachycardic at 129, febrile at 103.6. She denies any nausea, vomiting, chest pain, SOB, urinary symptoms, headaches. per ID, patient will need an additional week of Meropenemon-08/26/2019- in addition to augmentin - Current Medication List Current Medications: Active Medications Amino Acids (Prosource No Carb Liquid Pkt) 30 ml PO BID@0800,1730 [facility] Last Admin: 08/19/19 17:11 Dose: 30 ml Amoxicillin/Clavulanate Potassium (Augmentin - 500mg Tablet) 1 tab PO BID@0800, 1730 [facility] Last Admin: 08/19/19 17:11 Dose: 1 tab Apixaban (Eliquis -) 2.5 mg PO BID [facility] Last Admin: 08/19/19 21:57 Dose: 2.5 mg Collagenase (Santyl -) 1 applic TP DAILY [facility]; Protocol Last Admin: 08/19/19 11:31 Dose: 1 applic Ferrous Sulfate (Feosol -) 325 mg PO DAILY [facility] Last Admin: 08/19/19 11:30 Dose: 325 mg Meropenem 1 gm/ Dextrose 100 mls @ 200 mls/hr IVPB Q12H [facility] Last Admin: 08/19/19 20:49 Dose: 200 mls/hr Insulin Aspart (Novolog Vial Sliding Scale -) 1 vial SQ TIDAC [facility]; Protocol Last Admin: 08/20/19 07:17 Dose: Not Given Insulin Detemir (Levemir Vial) 6 units SQ BID@0700,2200 [facility] Last Admin: 08/20/19 07:17 Dose: 6 unit Lorazepam (Ativan -) 0.5 mg PO BID [facility] Last Admin: 08/19/19 21:57 Dose: 0.5 mg Pantoprazole Sodium (Protonix -) 40 mg PO DAILY [facility] Last Admin: 08/19/19 11:29 Dose: 40 mg Propranolol HCl (Inderal -) 20 mg PO BID [facility] Last Admin: 08/19/19 21:57 Dose: 20 mg Risperidone (Risperdal -) 0.25 mg PO BID [facility] Last Admin: 08/19/19 21:57 Dose: 0.25 mg Sitagliptin Phosphate (Januvia -) 25 mg PO DAILY@0700 [facility] Last Admin: 08/20/19 07:17 Dose: 25 mg - Objective Vital Signs: Vital Signs Temperature 98.6 F 08/20/19 05:56 Pulse Rate 75 08/20/19 05:56 Respiratory Rate 218 H 08/20/19 05:56 Blood Pressure 147/63 08/20/19 05:56 O2 Sat by Pulse Oximetry (%) 98 08/19/19 21:00 Additional Findings/Remarks: Constitutional: Yes: Well Nourished, No Distress, Calm Eyes: Yes: WNL, Conjunctiva Clear HENT: Yes: WNL, Atraumatic, Normocephalic Neck: Yes: WNL, Supple, Trachea Midline Cardiovascular: Yes: Regular Rate and Rhythm, Tachycardia (HR 100) Respiratory: Yes: WNL, Regular, CTA Bilaterally Gastrointestinal: Yes: Normal Bowel Sounds, Soft, Tenderness (mild TTP to RUQ) ...Rectal Exam: Yes: Deferred Genitourinary: Yes: Patterson Present Breast(s): Yes: WNL Musculoskeletal: Yes: Muscle Weakness Extremities: Yes: WNL Edema: No Peripheral Pulses WNL: Yes Peripheral Pulses: Left Radial: 2+, Right Radial: 2+, Left Doralis Pedis: 2+, Right Dorsalis Pedis: 2+, Left Femoral: 2+, Right Femoral: 2+ Integumentary: Yes: Other Wound/Incision: Yes: Other (-5cm stage IV decubitus sacral ulcer with white granulation tissue surrounding margins. Erythematous borders. Purulent drainage. Healed decubitus ulcer on heels BL. Several 1cm stage 1 ulcers on neck and back.) Neurological: Yes: Alert, Confusion ...Motor Strength: LUE, LLE, RUE, RLE (generalized weakness) Psychiatric: Yes: Alert, Other (confusion to place) Labs: INR, PTT INR 1.42 (0.83-1.09) H 08/10/19 20:15 Problem List - Problems (1) Afib Assessment/Plan: EKG on admission :sinus tachycardia, no st elevations or t wave inversions c/w home eliquis 2.5mg BID Code(s): I48.91 - UNSPECIFIED ATRIAL FIBRILLATION (2) Sepsis Assessment/Plan: Resolving Stage IV decubitus sacral ulcer with erythematous borders, tender to palpation. UA: 1+ LE, 2+ blood, 2+ protein Initial lactic acid: 1.9, f/u lactic 0.9 ESR: 119, CRP: 23.5 wound with pseudomonas, VRE, MSSA urine Cx VRE and blood Cx neg hx of MRSA in past, MRSA swab negative On meropenem & augmentin with stop date 08/26 Dr. Ohara following pt MRI abd/pelvis withput evidence of osteomyelitis and no fluid collections seen vascular surgery (Dr. Solis)and no surgical intervention needed US done that showed CBD and pancreatatic duct dilation MRCP done- no CBD stones or obstructing lesions. Await official reading. Dr Mcdaniels following will address with NH to see if can have IV antibiotics BID there Code(s): A41.9 - SEPSIS, UNSPECIFIED ORGANISM Qualifiers: Sepsis type: sepsis due to unspecified organism Sepsis acute organ dysfunction status: with acute organ dysfunction Severe sepsis acute organ dysfunction type: acute renal failure Acute renal failure type: unspecified Severe sepsis shock status: without septic shock Qualified Code(s): A41.9 - Sepsis, unspecified organism; R65.20 - Severe sepsis without septic shock; N17.9 - Acute kidney failure, unspecified (3) AMILCAR (acute kidney injury) Assessment/Plan: Likely 2/2 sepsis BUN/Cr: 55/ 2.2-on admission (baseline Cr: 1.4) Now 1.6 continue to monitor kidney function Avoid nephrotoxic agents Code(s): N17.9 - ACUTE KIDNEY FAILURE, UNSPECIFIED (4) Diabetes Assessment/Plan: Cont home levemir 6 units BID BGM AC/HS with novlog sliding scale restarted back on po Code(s): E11.9 - TYPE 2 DIABETES MELLITUS WITHOUT COMPLICATIONS Qualifiers: Diabetes mellitus type: type 2 Diabetes mellitus intermediate insulin use: with intermediate use Diabetes mellitus complication status: with skin complications Diabetes mellitus complication detail: with foot ulcer Qualified Code(s): E11.621 - Type 2 diabetes mellitus with foot ulcer; L97.509 - Non-pressure chronic ulcer of other part of unspecified foot with unspecified severity; Z79.4 - termite control representative (current) use of insulin (5) HLD (hyperlipidemia) Assessment/Plan: diet controlled at home Code(s): E78.5 - HYPERLIPIDEMIA, UNSPECIFIED (6) HTN (hypertension) Assessment/Plan: c/w inderal Code(s): I10 - ESSENTIAL (PRIMARY) HYPERTENSION Qualifiers: Hypertension type: essential hypertension Qualified Code(s): I10 - Essential (primary) hypertension (7) Stage 4 skin ulcer of sacral region Assessment/Plan: Stage IV decubitus sacral ulcer remains. Code(s): L98.429 - NON-PRESSURE CHRONIC ULCER OF BACK WITH UNSPECIFIED SEVERITY (8) Prophylactic measure Assessment/Plan: FEN taking in adequate PO regular diet monitor electrolytes DVT on eliquis Dispo maintain as in patient DNR/DNI discharge planning back to [facility] Code(s): Z29.9 - ENCOUNTER FOR PROPHYLACTIC MEASURES, UNSPECIFIED (9) Functional quadriplegia Assessment/Plan: patient bedbound supportive care turn reposition q2 h physical therapy Code(s): R53.2 - FUNCTIONAL QUADRIPLEGIA (10) Anemia Assessment/Plan: given 1u PRBC during stay maintaining hgb- now 9.6 c/w iron continue to trend Code(s): D64.9 - ANEMIA, UNSPECIFIED Qualifiers: Chronic kidney disease stage: unspecified stage (11) Incontinence Assessment/Plan: maintain patterson Code(s): R32 - UNSPECIFIED URINARY INCONTINENCE Visit type - Emergency Visit Emergency Visit: Yes ED Registration Date: 08/10/19 Care time: The patient presented to the Emergency Department on the above date and was hospitalized for further evaluation of their emergent condition. - New Patient This patient is new to me today: No - Critical Care Critical Care patient: No - Discharge Referral Referred to [facility] Med [facility] No
[2019-08-20 08:14] LABS: BASO % 0.7 % (0-2.0); HEMATOCRIT 30.2 % (32.4-45.2); HEMOGLOBIN 9.6 GM/dL (10.7-15.3); LYMPH % 37.4 % (8-40); MEAN CELL VOLUME 81.4 fl (80-96); MEAN PLT VOLUME 8.3 fl (7.5-11.1); MONO % 12.9 % (3.8-10.2); PLATELET COUNT 489 K/MM3 (134-434); RDW 16.8 % (11.6-15.6); WHITE BLOOD COUNT 5.2 K/mm3 (4.0-10.0)
[2019-08-20 08:31] LABS: ALBUMIN 2.3 g/dl (3.4-5.0); BILIRUBIN,TOTAL 0.2 mg/dL (0.2-1); CALCIUM 9.3 mg/dL (8.5-10.1); CREATININE 1.6 mg/dL (0.55-1.3); POTASSIUM 4.6 mmol/L (3.5-5.1); TOT PROT 7.5 g/dl (6.4-8.2)
[2019-08-20] MEDS ORDERED: MEROPENEM 1 GM VIAL (RESTRICTED TO ID) IVPB ONE ×2 (09:20→20:42)
[2019-08-20] MEDS ORDERED: PT OWN MED DRAWER 7, Y5N ONE (09:21)
[2019-08-20] MEDS ORDERED: DEXTROSE 5%-WATER 100 ML IVPB ONE ×2 (09:21→20:42)
[2019-08-20] MEDS: MEROPENEM 1 GM in DEXTROSE 5%-WATER 100 ML IVPB SCH ×2 (09:32→21:05)
[2019-08-20] MEDS: FERROUS SO4 325 MG TABLET (FP) PO SCH (09:33)
[2019-08-20] MEDS: AMINO ACIDS/PROTEIN HYDROLYS 30 ML LIQUID.PKT PO SCH ×2 (09:33→17:32)
[2019-08-20] MEDS: AMOX TR/POT CLAV 500MG/125MG TABLETS (FP) PO SCH ×2 (09:33→17:32)
[2019-08-20] MEDS: APIXABAN 2.5 MG TABLET PO SCH ×2 (09:34→21:05)
[2019-08-20] MEDS: PANTOPRAZOLE 40 MG TABLET (FP) PO SCH (09:34)
[2019-08-20] MEDS: LORazepam 0.5 MG TABLET PO SCH ×2 (09:35→21:05)
[2019-08-20] MEDS: risperiDONE 0.25 MG TABLET (FP) PO SCH ×2 (11:21→21:05)
[2019-08-20] MEDS: COLLAGENASE CLOSTRIDIUM HIST. 30 GRAMS TUBE TP SCH (11:22)
--- NOTE | 2019-08-20 12:17 | PN ---
Progress Note, Physician History of Present Illness: stable no new issues - Current Medication List Current Medications: Active Medications Amino Acids (Prosource No Carb Liquid Pkt) 30 ml PO BID@0800,1730 [facility] Last Admin: 08/20/19 09:33 Dose: 30 ml Amoxicillin/Clavulanate Potassium (Augmentin - 500mg Tablet) 1 tab PO BID@0800, 1730 [facility] Last Admin: 08/20/19 09:33 Dose: 1 tab Apixaban (Eliquis -) 2.5 mg PO BID [facility] Last Admin: 08/20/19 09:34 Dose: 2.5 mg Collagenase (Santyl -) 1 applic TP DAILY [facility]; Protocol Last Admin: 08/20/19 11:22 Dose: 1 applic Ferrous Sulfate (Feosol -) 325 mg PO DAILY [facility] Last Admin: 08/20/19 09:33 Dose: 325 mg Meropenem 1 gm/ Dextrose 100 mls @ 200 mls/hr IVPB Q12H [facility] Stop: 08/26/19 20:15 Last Admin: 08/20/19 09:32 Dose: 200 mls/hr Insulin Aspart (Novolog Vial Sliding Scale -) 1 vial SQ TIDAC [facility]; Protocol Last Admin: 08/20/19 11:22 Dose: 4 units Insulin Detemir (Levemir Vial) 6 units SQ BID@0700,2200 [facility] Last Admin: 08/20/19 07:17 Dose: 6 unit Lorazepam (Ativan -) 0.5 mg PO BID [facility] Last Admin: 08/20/19 09:35 Dose: 0.5 mg Pantoprazole Sodium (Protonix -) 40 mg PO DAILY [facility] Last Admin: 08/20/19 09:34 Dose: 40 mg Propranolol HCl (Inderal -) 20 mg PO BID [facility] Last Admin: 08/20/19 11:22 Dose: 20 mg Risperidone (Risperdal -) 0.25 mg PO BID [facility] Last Admin: 08/20/19 11:21 Dose: 0.25 mg Sitagliptin Phosphate (Januvia -) 25 mg PO DAILY@0700 [facility] Last Admin: 08/20/19 07:17 Dose: 25 mg - Objective Vital Signs: Vital Signs Temperature 98.8 F 08/20/19 09:43 Pulse Rate 88 08/20/19 09:43 Respiratory Rate 18 08/20/19 09:43 Blood Pressure 143/70 08/20/19 09:43 O2 Sat by Pulse Oximetry (%) 98 08/19/19 21:00 Constitutional: Yes: No Distress, Calm Cardiovascular: Yes: S1, S2 Respiratory: Yes: Regular, CTA Bilaterally Gastrointestinal: Yes: Normal Bowel Sounds, Soft Musculoskeletal: Yes: WNL Extremities: Yes: WNL Neurological: Yes: Alert, Oriented Psychiatric: Yes: Alert, Oriented Labs: CBC, BMP 08/20/19 06:40 08/20/19 06:40 INR, PTT INR 1.42 (0.83-1.09) H 08/10/19 20:15 Assessment/Plan Problem List - Problems (1) Afib Code(s): I48.91 - UNSPECIFIED ATRIAL FIBRILLATION (2) Sepsis Code(s): A41.9 - SEPSIS, UNSPECIFIED ORGANISM Qualifiers: Sepsis type: sepsis due to unspecified organism Sepsis acute organ dysfunction status: with acute organ dysfunction Severe sepsis acute organ dysfunction type: acute renal failure Acute renal failure type: unspecified Severe sepsis shock status: without septic shock Qualified Code(s): A41.9 - Sepsis, unspecified organism; R65.20 - Severe sepsis without septic shock; N17.9 - Acute kidney failure, unspecified (3) AMILCAR (acute kidney injury) Code(s): N17.9 - ACUTE KIDNEY FAILURE, UNSPECIFIED (4) Diabetes Code(s): E11.9 - TYPE 2 DIABETES MELLITUS WITHOUT COMPLICATIONS Qualifiers: Diabetes mellitus type: type 2 Diabetes mellitus utility bill collector insulin use: with fci use Diabetes mellitus complication status: with skin complications Diabetes mellitus complication detail: with foot ulcer Qualified Code(s): E11.621 - Type 2 diabetes mellitus with foot ulcer; L97.509 - Non-pressure chronic ulcer of other part of unspecified foot with unspecified severity; Z79.4 - janitorial account manager (current) use of insulin (5) HLD (hyperlipidemia) Code(s): E78.5 - HYPERLIPIDEMIA, UNSPECIFIED (6) HTN (hypertension) Code(s): I10 - ESSENTIAL (PRIMARY) HYPERTENSION Qualifiers: Hypertension type: essential hypertension Qualified Code(s): I10 - Essential (primary) hypertension (7) Stage 4 skin ulcer of sacral region Code(s): L98.429 - NON-PRESSURE CHRONIC ULCER OF BACK WITH UNSPECIFIED SEVERITY plan continue current mgmt organisms noted abx rest continue current mgmt wound care
[2019-08-21] MEDS: INSULIN SLIDING SCALE (NOVOLOG) 1 VIAL SQ SCH ×3 (06:08→17:21)
[2019-08-21] MEDS: INSULIN (LEVEMIR) 100 UNITS/ML UNITS SQ SCH ×2 (06:08→21:13)
[2019-08-21 06:58] LABS: BASO % 0.9 % (0-2.0); EOS % 6.1 % (0-4.5); HEMATOCRIT 30.7 % (32.4-45.2); HEMOGLOBIN 9.8 GM/dL (10.7-15.3); LYMPH % 38.2 % (8-40); MCHC 31.8 g/dl (32.0-36.0); MEAN CELL VOLUME 81.8 fl (80-96); MEAN PLT VOLUME 8.3 fl (7.5-11.1); NEUT % 41.8 % (42.8-82.8); PLATELET COUNT 490 K/MM3 (134-434); RBC 3.76 M/mm3 (3.60-5.2); RDW 17.6 % (11.6-15.6); WHITE BLOOD COUNT 5.4 K/mm3 (4.0-10.0)
[2019-08-21 07:36] LABS: ALBUMIN 2.4 g/dl (3.4-5.0); BILIRUBIN,TOTAL 0.2 mg/dL (0.2-1); BLOOD UREA NITROGEN 49.4 mg/dL (7-18); CALCIUM 9.6 mg/dL (8.5-10.1); CREATININE 1.6 mg/dL (0.55-1.3); MAGNESIUM 2.3 mg/dL (1.8-2.4); POTASSIUM 4.7 mmol/L (3.5-5.1); TOT PROT 7.4 g/dl (6.4-8.2)
[2019-08-21] MEDS: AMINO ACIDS/PROTEIN HYDROLYS 30 ML LIQUID.PKT PO SCH ×2 (08:30→17:17)
[2019-08-21] MEDS: AMOX TR/POT CLAV 500MG/125MG TABLETS (FP) PO SCH ×2 (08:30→17:16)
[2019-08-21] MEDS: MEROPENEM 1 GM in DEXTROSE 5%-WATER 100 ML IVPB SCH ×2 (09:00→21:12)
[2019-08-21] MEDS: LORazepam 0.5 MG TABLET PO SCH ×2 (09:01→21:12)
[2019-08-21] MEDS: APIXABAN 2.5 MG TABLET PO SCH ×2 (09:15→21:12)
[2019-08-21] MEDS: FERROUS SO4 325 MG TABLET (FP) PO SCH (09:15)
[2019-08-21] MEDS: PANTOPRAZOLE 40 MG TABLET (FP) PO SCH (09:16)
[2019-08-21] MEDS: risperiDONE 0.25 MG TABLET (FP) PO SCH ×2 (09:16→21:12)
[2019-08-21] MEDS ORDERED: MEROPENEM 1 GM VIAL (RESTRICTED TO ID) IVPB ONE ×2 (09:50→20:13)
[2019-08-21] MEDS ORDERED: DEXTROSE 5%-WATER 100 ML IVPB ONE ×2 (09:50→20:13)
--- NOTE | 2019-08-21 10:31 | PN ---
Progress Note, Physician History of Present Illness: stable no new issues - Current Medication List Current Medications: Active Medications Amino Acids (Prosource No Carb Liquid Pkt) 30 ml PO BID@0800,1730 [facility] Last Admin: 08/20/19 17:32 Dose: 30 ml Amoxicillin/Clavulanate Potassium (Augmentin - 500mg Tablet) 1 tab PO BID@0800, 1730 [facility] Last Admin: 08/20/19 17:32 Dose: 1 tab Apixaban (Eliquis -) 2.5 mg PO BID [facility] Last Admin: 08/20/19 21:05 Dose: 2.5 mg Collagenase (Santyl -) 1 applic TP DAILY [facility]; Protocol Last Admin: 08/20/19 11:22 Dose: 1 applic Ferrous Sulfate (Feosol -) 325 mg PO DAILY [facility] Last Admin: 08/20/19 09:33 Dose: 325 mg Meropenem 1 gm/ Dextrose 100 mls @ 200 mls/hr IVPB Q12H [facility] Stop: 08/26/19 20:15 Last Admin: 08/20/19 21:05 Dose: 200 mls/hr Insulin Aspart (Novolog Vial Sliding Scale -) 1 vial SQ TIDAC [facility]; Protocol Last Admin: 08/21/19 06:08 Dose: 2 units Insulin Detemir (Levemir Vial) 6 units SQ BID@0700,2200 [facility] Last Admin: 08/21/19 06:08 Dose: 6 unit Lorazepam (Ativan -) 0.5 mg PO BID [facility] Last Admin: 08/20/19 21:05 Dose: 0.5 mg Pantoprazole Sodium (Protonix -) 40 mg PO DAILY [facility] Last Admin: 08/20/19 09:34 Dose: 40 mg Propranolol HCl (Inderal -) 20 mg PO BID [facility] Last Admin: 08/20/19 21:05 Dose: 20 mg Risperidone (Risperdal -) 0.25 mg PO BID [facility] Last Admin: 08/20/19 21:05 Dose: 0.25 mg Sitagliptin Phosphate (Januvia -) 25 mg PO DAILY@0700 [facility] Last Admin: 08/21/19 06:08 Dose: 25 mg - Objective Vital Signs: Vital Signs Temperature 98.7 F 08/21/19 05:00 Pulse Rate 90 08/21/19 05:00 Respiratory Rate 18 08/21/19 05:00 Blood Pressure 128/62 08/21/19 05:00 O2 Sat by Pulse Oximetry (%) 98 08/20/19 21:00 Constitutional: Yes: No Distress, Calm Cardiovascular: Yes: S1, S2 Respiratory: Yes: Regular, CTA Bilaterally Gastrointestinal: Yes: Normal Bowel Sounds, Soft Musculoskeletal: Yes: WNL Extremities: Yes: WNL Wound/Incision: Yes: Dressing Dry and Intact Neurological: Yes: Alert, Oriented Psychiatric: Yes: Alert, Oriented Labs: CBC, BMP 08/21/19 05:35 08/21/19 05:35 INR, PTT INR 1.42 (0.83-1.09) H 08/10/19 20:15 Assessment/Plan Problem List - Problems (1) Afib Code(s): I48.91 - UNSPECIFIED ATRIAL FIBRILLATION (2) Sepsis Code(s): A41.9 - SEPSIS, UNSPECIFIED ORGANISM Qualifiers: Sepsis type: sepsis due to unspecified organism Sepsis acute organ dysfunction status: with acute organ dysfunction Severe sepsis acute organ dysfunction type: acute renal failure Acute renal failure type: unspecified Severe sepsis shock status: without septic shock Qualified Code(s): A41.9 - Sepsis, unspecified organism; R65.20 - Severe sepsis without septic shock; N17.9 - Acute kidney failure, unspecified (3) AMILCAR (acute kidney injury) Code(s): N17.9 - ACUTE KIDNEY FAILURE, UNSPECIFIED (4) Diabetes Code(s): E11.9 - TYPE 2 DIABETES MELLITUS WITHOUT COMPLICATIONS Qualifiers: Diabetes mellitus type: type 2 Diabetes mellitus nursing home insulin use: with nursing home use Diabetes mellitus complication status: with skin complications Diabetes mellitus complication detail: with foot ulcer Qualified Code(s): E11.621 - Type 2 diabetes mellitus with foot ulcer; L97.509 - Non-pressure chronic ulcer of other part of unspecified foot with unspecified severity; Z79.4 - manager intermediate (current) use of insulin (5) HLD (hyperlipidemia) Code(s): E78.5 - HYPERLIPIDEMIA, UNSPECIFIED (6) HTN (hypertension) Code(s): I10 - ESSENTIAL (PRIMARY) HYPERTENSION Qualifiers: Hypertension type: essential hypertension Qualified Code(s): I10 - Essential (primary) hypertension (7) Stage 4 skin ulcer of sacral region Code(s): L98.429 - NON-PRESSURE CHRONIC ULCER OF BACK WITH UNSPECIFIED SEVERITY plan continue current mgmt organisms noted abx rest continue current mgmt wound care
--- NOTE | 2019-08-21 14:13 | PN ---
Physical Exam: SUBJECTIVE: Patient seen and examined at the bedside. in no acute distress. OBJECTIVE: Patient is a 74 year old female (from [facility]) with PMH of HTN , DM2, HLD, chronic Afib (on eliquis), stage IV decubitus sacral ulcer, functional quadriplegia BIBEMS from [place] for anemia (Hgb 8.1). Pt has complained of mild abdominal discomfort and decreased appetite over the past 2 days. Also notes subjective fevers and chills. Upon arrival to the ED, pt was tachycardic at 129, febrile at 103.6. She denies any nausea, vomiting, chest pain, SOB, urinary symptoms, headaches. per ID, patient will need an additional week of Meropenemon-08/26/2019- in addition to augmentin Vital Signs Period Temp Pulse Resp BP Sys/Uribe Pulse Ox Last 24 Hr 98.7 F-99.1 F 88-91 18-18 128-142/62-74 98 GENERAL: The patient is awake, alert, in no acute distress. resting tremor left arm HEAD: Normal with no signs of trauma. EYES: PERRL, extraocular movements intact, sclera anicteric, conjunctiva clear. No ptosis. ENT: Ears normal, nares patent, oropharynx clear without exudates, moist mucous membranes. NECK: Trachea midline, full range of motion, supple. LUNGS: congested on upper lobes, lower lobes clear, tolerating room air HEART: Regular rate and rhythm ABDOMEN: mildly distended, + bowel sounds EXTREMITIES: no edema. NEUROLOGICAL: Normal speech, gait not observed. PSYCH: withdrawn SKIN: stage 4 sacrum Laboratory Results - last 24 hrs 08/20/19 08/21/19 08/21/19 17:29 04:58 05:35 WBC 5.4 RBC 3.76 Hgb 9.8 L Hct 30.7 L MCV 81.8 MCH 26.0 MCHC 31.8 L RDW 17.6 H Plt Count 490 H MPV 8.3 Absolute Neuts (auto) 2.2 Neutrophils % 41.8 L Lymphocytes % 38.2 Monocytes % 13.0 H Eosinophils % 6.1 H Basophils % 0.9 Nucleated RBC % 0 Sodium Potassium Chloride Carbon Dioxide Anion Gap BUN Creatinine Est GFR (CKD-EPI)AfAm Est GFR (CKD-EPI)NonAf POC Glucometer 138 166 Random Glucose Calcium Magnesium Total Bilirubin AST ALT Alkaline Phosphatase Total Protein Albumin 08/21/19 08/21/19 05:35 11:43 WBC RBC Hgb Hct MCV MCH MCHC RDW Plt Count MPV Absolute Neuts (auto) Neutrophils % Lymphocytes % Monocytes % Eosinophils % Basophils % Nucleated RBC % Sodium 140 Potassium 4.7 Chloride 115 H Carbon Dioxide 16 L Anion Gap 9 BUN 49.4 H Creatinine 1.6 H Est GFR (CKD-EPI)AfAm 36.67 Est GFR (CKD-EPI)NonAf 31.64 POC Glucometer 269 Random Glucose 180 H Calcium 9.6 Magnesium 2.3 Total Bilirubin 0.2 AST 19 ALT 41 Alkaline Phosphatase 138 H Total Protein 7.4 Albumin 2.4 L Active Medications Generic Name Dose Route Start Last Admin Trade Name Freq PRN Reason Stop Dose Admin Amino Acids 30 ml 08/13/19 17:30 08/20/19 17:32 Prosource No Carb Liquid Pkt PO 30 ml BID@0800,1730 YOAV Administration Amoxicillin/Clavulanate Potassium 1 tab 08/19/19 17:30 08/20/19 17:32 Augmentin - 500mg Tablet PO 1 tab BID@0800,1730 YOAV Administration Apixaban 2.5 mg 08/11/19 10:00 08/20/19 21:05 Eliquis - PO 2.5 mg BID YOAV Administration Collagenase 1 applic 08/11/19 18:00 08/20/19 11:22 Santyl - TP 1 applic DAILY YOAV Administration Protocol Ferrous Sulfate 325 mg 08/14/19 16:30 08/20/19 09:33 Feosol - PO 325 mg DAILY YOAV Administration Meropenem 1 gm/ Dextrose 100 mls @ 200 mls/hr 08/15/19 20:15 08/20/19 21:05 IVPB 08/26/19 20:15 200 mls/hr Q12H YOAV Administration Insulin Aspart 1 vial 08/11/19 07:00 08/21/19 06:08 Novolog Vial Sliding Scale - SQ 2 units TIDAC YOAV Administration Protocol Insulin Detemir 6 units 08/11/19 07:00 08/21/19 06:08 Levemir Vial SQ 6 unit BID@0700,2200 YOAV Administration Lorazepam 0.5 mg 08/11/19 22:00 08/20/19 21:05 Ativan - PO 0.5 mg BID YOAV Administration Pantoprazole Sodium 40 mg 08/15/19 16:30 08/20/19 09:34 Protonix - PO 40 mg DAILY YOAV Administration Propranolol HCl 20 mg 08/11/19 10:00 08/20/19 21:05 Inderal - PO 20 mg BID YOAV Administration Risperidone 0.25 mg 08/11/19 10:00 08/20/19 21:05 Risperdal - PO 0.25 mg BID YOAV Administration Sitagliptin Phosphate 25 mg 08/15/19 07:00 08/21/19 06:08 Januvia - PO 25 mg DAILY@0700 YOAV Administration ASSESSMENT/PLAN: Problem List - Problems (1) Sepsis Assessment/Plan: Stage IV decubitus sacral ulcer with erythematous borders, no odor or drainage. on santyl. UA: 1+ LE, 2+ blood, 2+ protein ESR: 119, CRP: 23.5 wound with pseudomonas, VRE, MSSA urine Cx VRE and blood Cx neg hx of MRSA in past, MRSA swab negative patient will need an additional week of Meropenemon-08/26/2019- in addition to augmentin MRI abd/pelvis withput evidence of osteomyelitis and no fluid collections seen vascular surgery (Dr. Solis) and no surgical intervention recommended Code(s): A41.9 - SEPSIS, UNSPECIFIED ORGANISM Qualifiers: Sepsis type: sepsis due to unspecified organism Sepsis acute organ dysfunction status: with acute organ dysfunction Severe sepsis acute organ dysfunction type: acute renal failure Acute renal failure type: unspecified Severe sepsis shock status: without septic shock Qualified Code(s): A41.9 - Sepsis, unspecified organism; R65.20 - Severe sepsis without septic shock; N17.9 - Acute kidney failure, unspecified (2) Afib Assessment/Plan: EKG on admission :sinus tachycardia, no st elevations or t wave inversions On eliquis 2.5mg BID Code(s): I48.91 - UNSPECIFIED ATRIAL FIBRILLATION (3) Dilated bile duct Assessment/Plan: Chronically dilated but nonobstructed common bile duct based on current MRCP per GI. Possible repeated passage of GB stones. Cholecystectomy declined by family and patient. Code(s): K83.8 - OTHER SPECIFIED DISEASES OF BILIARY TRACT (4) Incontinence Assessment/Plan: patterson catheter placed to divert urine from entering sacral wound Code(s): R32 - UNSPECIFIED URINARY INCONTINENCE (5) AMILCAR (acute kidney injury) Assessment/Plan: improving Likely 2/2 sepsis BUN/Cr: 55/ 2.2-on admission (baseline Cr: 1.4) Now 1.5 continue to monitor kidney function Avoid nephrotoxic agents Code(s): N17.9 - ACUTE KIDNEY FAILURE, UNSPECIFIED (6) Anemia Assessment/Plan: anemia without evidence of bleeding. EGD and colonoscopy declined hematology outpatient v inpatient Code(s): D64.9 - ANEMIA, UNSPECIFIED (7) Diabetes Assessment/Plan: Cont home levemir 6 units BID BGM AC/HS with novlog sliding scale Code(s): E11.9 - TYPE 2 DIABETES MELLITUS WITHOUT COMPLICATIONS Qualifiers: Diabetes mellitus type: type 2 Diabetes mellitus detention insulin use: with detention use Diabetes mellitus complication status: with skin complications Diabetes mellitus complication detail: with foot ulcer Qualified Code(s): E11.621 - Type 2 diabetes mellitus with foot ulcer; L97.509 - Non-pressure chronic ulcer of other part of unspecified foot with unspecified severity; Z79.4 - intermediate frame tender (current) use of insulin (8) Prophylactic measure Assessment/Plan: fen tolerating PO monitor electrolytes on eliquis turn and position q 2 Code(s): Z29.9 - ENCOUNTER FOR PROPHYLACTIC MEASURES, UNSPECIFIED Visit type - Emergency Visit Emergency Visit: Yes ED Registration Date: 08/10/19 Care time: The patient presented to the Emergency Department on the above date and was hospitalized for further evaluation of their emergent condition. - New Patient This patient is new to me today: No - Critical Care Critical Care patient: No - Discharge Referral Referred to [facility] Med P.C.: No
[2019-08-21] MEDS: COLLAGENASE CLOSTRIDIUM HIST. 30 GRAMS TUBE TP SCH (17:19)
[2019-08-22] MEDS: INSULIN (LEVEMIR) 100 UNITS/ML UNITS SQ SCH ×2 (06:12→21:56)
[2019-08-22] MEDS: INSULIN SLIDING SCALE (NOVOLOG) 1 VIAL SQ SCH ×3 (06:13→16:40)
[2019-08-22 06:43] LABS: BASO % 0.6 % (0-2.0); EOS % 4.1 % (0-4.5); HEMATOCRIT 33.6 % (32.4-45.2); HEMOGLOBIN 10.8 GM/dL (10.7-15.3); LYMPH % 11.8 % (8-40); MCH 26.3 pg (25.7-33.7); MCHC 32.3 g/dl (32.0-36.0); MEAN CELL VOLUME 81.6 fl (80-96); MEAN PLT VOLUME 8.4 fl (7.5-11.1); MONO % 6.2 % (3.8-10.2); NEUT % 77.3 % (42.8-82.8); PLATELET COUNT 446 K/MM3 (134-434); RBC 4.11 M/mm3 (3.60-5.2); RDW 17.7 % (11.6-15.6); WHITE BLOOD COUNT 5.7 K/mm3 (4.0-10.0)
[2019-08-22 07:09] LABS: ALBUMIN 2.4 g/dl (3.4-5.0); BILIRUBIN,TOTAL 0.2 mg/dL (0.2-1); BLOOD UREA NITROGEN 51.9 mg/dL (7-18); CALCIUM 9.2 mg/dL (8.5-10.1); CREATININE 1.5 mg/dL (0.55-1.3); MAGNESIUM 2.2 mg/dL (1.8-2.4); POTASSIUM 4.4 mmol/L (3.5-5.1); TOT PROT 7.6 g/dl (6.4-8.2)
[2019-08-22] MEDS: AMINO ACIDS/PROTEIN HYDROLYS 30 ML LIQUID.PKT PO SCH ×2 (08:10→17:15)
[2019-08-22] MEDS: AMOX TR/POT CLAV 500MG/125MG TABLETS (FP) PO SCH ×2 (08:10→17:14)
[2019-08-22] MEDS: MEROPENEM 1 GM in DEXTROSE 5%-WATER 100 ML IVPB SCH ×2 (09:00→21:56)
[2019-08-22] MEDS: LORazepam 0.5 MG TABLET PO SCH ×2 (10:00→21:56)
[2019-08-22] MEDS: FERROUS SO4 325 MG TABLET (FP) PO SCH (10:30)
[2019-08-22] MEDS: APIXABAN 2.5 MG TABLET PO SCH ×2 (10:30→21:56)
[2019-08-22] MEDS: PANTOPRAZOLE 40 MG TABLET (FP) PO SCH (10:33)
[2019-08-22] MEDS: risperiDONE 0.25 MG TABLET (FP) PO SCH ×2 (10:35→21:56)
[2019-08-22] MEDS ORDERED: DEXTROSE 5%-WATER 100 ML IVPB ONE ×2 (10:42→20:29)
[2019-08-22] MEDS ORDERED: MEROPENEM 1 GM VIAL (RESTRICTED TO ID) IVPB ONE ×2 (10:42→20:29)
[2019-08-22] MEDS ORDERED: PT OWN MED DRAWER 7, Y5N ONE (10:44)
--- NOTE | 2019-08-22 12:10 | PN ---
Physical Exam: SUBJECTIVE: Patient seen and examined at the bedside. in no acute distress. OBJECTIVE: Patient is a 74 year old female (from [facility]) with PMH of HTN , DM2, HLD, chronic Afib (on eliquis), stage IV decubitus sacral ulcer, functional quadriplegia [place] from [place] for [place] (Hgb 8.1). Pt has complained of mild abdominal discomfort and decreased appetite over the past 2 days. Also notes subjective fevers and chills. Upon arrival to the ED, pt was tachycardic at 129, febrile at 103.6. She denies any nausea, vomiting, chest pain, SOB, urinary symptoms, headaches. per ID, patient will need an additional week of Meropenemon-08/26/2019- in addition to augmentin Vital Signs Period Temp Pulse Resp BP Sys/Uribe Pulse Ox Last 24 Hr 98.1 F-98.6 F 81-95 20-20 121-142/62-66 97 GENERAL: The patient is awake, alert, in no acute distress. resting tremor left arm HEAD: Normal with no signs of trauma. EYES: PERRL, extraocular movements intact, sclera anicteric, conjunctiva clear. No ptosis. ENT: Ears normal, nares patent, oropharynx clear without exudates, moist mucous membranes. NECK: Trachea midline, full range of motion, supple. LUNGS: congested on upper lobes, lower lobes clear, tolerating room air HEART: Regular rate and rhythm ABDOMEN: mildly distended, + bowel sounds EXTREMITIES: no edema. NEUROLOGICAL: Normal speech, gait not observed. PSYCH: withdrawn SKIN: stage 4 sacrum Laboratory Results - last 24 hr 08/21/19 08/22/19 08/22/19 16:30 05:14 05:30 WBC 5.7 RBC 4.11 Hgb 10.8 Hct 33.6 MCV 81.6 MCH 26.3 MCHC 32.3 RDW 17.7 H Plt Count 446 H MPV 8.4 Absolute Neuts (auto) 4.4 Neutrophils % 77.3 D Lymphocytes % 11.8 D Monocytes % 6.2 Eosinophils % 4.1 Basophils % 0.6 Nucleated RBC % 0 Sodium Potassium Chloride Carbon Dioxide Anion Gap BUN Creatinine Est GFR (CKD-EPI)AfAm Est GFR (CKD-EPI)NonAf POC Glucometer 155 221 Random Glucose Calcium Magnesium Total Bilirubin AST ALT Alkaline Phosphatase Total Protein Albumin 08/22/19 08/22/19 05:30 11:27 WBC RBC Hgb Hct MCV MCH MCHC RDW Plt Count MPV Absolute Neuts (auto) Neutrophils % Lymphocytes % Monocytes % Eosinophils % Basophils % Nucleated RBC % Sodium 138 Potassium 4.4 Chloride 113 H Carbon Dioxide 16 L Anion Gap 9 BUN 51.9 H Creatinine 1.5 H Est GFR (CKD-EPI)AfAm 39.64 Est GFR (CKD-EPI)NonAf 34.21 POC Glucometer 262 Random Glucose 238 H Calcium 9.2 Magnesium 2.2 Total Bilirubin 0.2 AST 18 ALT 41 Alkaline Phosphatase 148 H Total Protein 7.6 Albumin 2.4 L Active Medications Generic Name Dose Route Start Last Admin Trade Name Freq PRN Reason Stop Dose Admin Amino Acids 30 ml 08/13/19 17:30 08/21/19 17:17 Prosource No Carb Liquid Pkt PO Not Given BID@0800,1730 YOAV Amoxicillin/Clavulanate Potassium 1 tab 08/19/19 17:30 08/21/19 17:16 Augmentin - 500mg Tablet PO 1 tab BID@0800,1730 YOAV Administration Apixaban 2.5 mg 08/11/19 10:00 08/21/19 21:12 Eliquis - PO 2.5 mg BID YOAV Administration Collagenase 1 applic 08/11/19 18:00 08/21/19 17:19 Santyl - TP 1 applic DAILY YOAV Administration Protocol Ferrous Sulfate 325 mg 08/14/19 16:30 08/21/19 09:15 Feosol - PO 325 mg DAILY YOAV Administration Meropenem 1 gm/ Dextrose 100 mls @ 200 mls/hr 08/15/19 20:15 08/21/19 21:12 IVPB 08/26/19 20:15 200 mls/hr Q12H YOAV Administration Insulin Aspart 1 vial 08/11/19 07:00 08/22/19 06:13 Novolog Vial Sliding Scale - SQ 4 units TIDAC YOAV Administration Protocol Insulin Detemir 6 units 08/11/19 07:00 08/22/19 06:12 Levemir Vial SQ 6 unit BID@0700,2200 YOAV Administration Lorazepam 0.5 mg 08/11/19 22:00 08/21/19 21:12 Ativan - PO 0.5 mg BID YOAV Administration Pantoprazole Sodium 40 mg 08/15/19 16:30 08/21/19 09:16 Protonix - PO 40 mg DAILY YOAV Administration Propranolol HCl 20 mg 08/11/19 10:00 08/21/19 21:12 Inderal - PO 20 mg BID YOAV Administration Risperidone 0.25 mg 08/11/19 10:00 08/21/19 21:12 Risperdal - PO 0.25 mg BID YOAV Administration Sitagliptin Phosphate 25 mg 08/15/19 07:00 08/22/19 06:13 Januvia - PO 25 mg DAILY@0700 YOAV Administration ASSESSMENT/PLAN: Problem List - Problems (1) Sepsis Assessment/Plan: Stage IV decubitus sacral ulcer with erythematous borders, no odor or drainage. on santyl. UA: 1+ LE, 2+ blood, 2+ protein ESR: 119, CRP: 23.5 wound with pseudomonas, VRE, MSSA urine Cx VRE and blood Cx neg hx of MRSA in past, MRSA swab negative patient will need an additional week of Meropenemon-08/26/2019- in addition to augmentin MRI abd/pelvis withput evidence of osteomyelitis and no fluid collections seen vascular surgery (Dr. Solis) and no surgical intervention recommended Code(s): A41.9 - SEPSIS, UNSPECIFIED ORGANISM Qualifiers: Sepsis type: sepsis due to unspecified organism Sepsis acute organ dysfunction status: with acute organ dysfunction Severe sepsis acute organ dysfunction type: acute renal failure Acute renal failure type: unspecified Severe sepsis shock status: without septic shock Qualified Code(s): A41.9 - Sepsis, unspecified organism; R65.20 - Severe sepsis without septic shock; N17.9 - Acute kidney failure, unspecified (2) Afib Assessment/Plan: EKG on admission :sinus tachycardia, no st elevations or t wave inversions On eliquis 2.5mg BID Code(s): I48.91 - UNSPECIFIED ATRIAL FIBRILLATION (3) Dilated bile duct Assessment/Plan: Chronically dilated but nonobstructed common bile duct based on current MRCP per GI. Possible repeated passage of GB stones. Cholecystectomy declined by family and patient. Code(s): K83.8 - OTHER SPECIFIED DISEASES OF BILIARY TRACT (4) Incontinence Assessment/Plan: patterson catheter placed to divert urine from entering sacral wound Code(s): R32 - UNSPECIFIED URINARY INCONTINENCE (5) AMILCAR (acute kidney injury) Assessment/Plan: improving Likely 2/2 sepsis BUN/Cr: 55/ 2.2-on admission (baseline Cr: 1.4) Now 1.5 continue to monitor kidney function Avoid nephrotoxic agents Code(s): N17.9 - ACUTE KIDNEY FAILURE, UNSPECIFIED (6) Anemia Assessment/Plan: anemia without evidence of bleeding. EGD and colonoscopy declined hematology outpatient v inpatient Code(s): D64.9 - ANEMIA, UNSPECIFIED (7) Diabetes Assessment/Plan: Cont home levemir 6 units BID BGM AC/HS with novlog sliding scale Code(s): E11.9 - TYPE 2 DIABETES MELLITUS WITHOUT COMPLICATIONS Qualifiers: Diabetes mellitus type: type 2 Diabetes mellitus [facility] insulin use: with senior technical trainer use Diabetes mellitus complication status: with skin complications Diabetes mellitus complication detail: with foot ulcer Qualified Code(s): E11.621 - Type 2 diabetes mellitus with foot ulcer; L97.509 - Non-pressure chronic ulcer of other part of unspecified foot with unspecified severity; Z79.4 - cotton candy maker (current) use of insulin (8) Prophylactic measure Assessment/Plan: fen tolerating PO monitor electrolytes on eliquis turn and position q 2 Code(s): Z29.9 - ENCOUNTER FOR PROPHYLACTIC MEASURES, UNSPECIFIED Visit type - Emergency Visit Emergency Visit: Yes ED Registration Date: 08/10/19 Care time: The patient presented to the Emergency Department on the above date and was hospitalized for further evaluation of their emergent condition. - New Patient This patient is new to me today: No - Critical Care Critical Care patient: No - Discharge Referral Referred to [facility] Med P.C.: No
--- NOTE | 2019-08-22 12:58 | PN ---
Progress Note, Physician History of Present Illness: stable no new issues - Current Medication List Current Medications: Active Medications Amino Acids (Prosource No Carb Liquid Pkt) 30 ml PO BID@0800,1730 [facility] Last Admin: 08/21/19 17:17 Dose: Not Given Amoxicillin/Clavulanate Potassium (Augmentin - 500mg Tablet) 1 tab PO BID@0800, 1730 [facility] Last Admin: 08/21/19 17:16 Dose: 1 tab Apixaban (Eliquis -) 2.5 mg PO BID [facility] Last Admin: 08/21/19 21:12 Dose: 2.5 mg Collagenase (Santyl -) 1 applic TP DAILY [facility]; Protocol Last Admin: 08/21/19 17:19 Dose: 1 applic Ferrous Sulfate (Feosol -) 325 mg PO DAILY [facility] Last Admin: 08/21/19 09:15 Dose: 325 mg Meropenem 1 gm/ Dextrose 100 mls @ 200 mls/hr IVPB Q12H [facility] Stop: 08/26/19 20:15 Last Admin: 08/21/19 21:12 Dose: 200 mls/hr Insulin Aspart (Novolog Vial Sliding Scale -) 1 vial SQ TIDAC [facility]; Protocol Last Admin: 08/22/19 06:13 Dose: 4 units Insulin Detemir (Levemir Vial) 6 units SQ BID@0700,2200 [facility] Last Admin: 08/22/19 06:12 Dose: 6 unit Lorazepam (Ativan -) 0.5 mg PO BID [facility] Last Admin: 08/21/19 21:12 Dose: 0.5 mg Pantoprazole Sodium (Protonix -) 40 mg PO DAILY [facility] Last Admin: 08/21/19 09:16 Dose: 40 mg Propranolol HCl (Inderal -) 20 mg PO BID [facility] Last Admin: 08/21/19 21:12 Dose: 20 mg Risperidone (Risperdal -) 0.25 mg PO BID [facility] Last Admin: 08/21/19 21:12 Dose: 0.25 mg Sitagliptin Phosphate (Januvia -) 25 mg PO DAILY@0700 [facility] Last Admin: 08/22/19 06:13 Dose: 25 mg - Objective Vital Signs: Vital Signs Temperature 98.6 F 08/22/19 06:00 Pulse Rate 95 H 08/22/19 06:00 Respiratory Rate 20 08/22/19 06:00 Blood Pressure 142/62 12/29/19 06:00 O2 Sat by Pulse Oximetry (%) 97 08/21/19 21:00 Constitutional: Yes: No Distress, Calm Cardiovascular: Yes: Regular Rate and Rhythm Respiratory: Yes: Regular, CTA Bilaterally Gastrointestinal: Yes: Normal Bowel Sounds, Soft Musculoskeletal: Yes: WNL Extremities: Yes: WNL Neurological: Yes: Alert, Oriented Labs: CBC, BMP 08/22/19 05:30 08/22/19 05:30 INR, PTT INR 1.42 (0.83-1.09) H 08/10/19 20:15 Assessment/Plan Problem List - Problems (1) Afib Code(s): I48.91 - UNSPECIFIED ATRIAL FIBRILLATION (2) Sepsis Code(s): A41.9 - SEPSIS, UNSPECIFIED ORGANISM Qualifiers: Sepsis type: sepsis due to unspecified organism Sepsis acute organ dysfunction status: with acute organ dysfunction Severe sepsis acute organ dysfunction type: acute renal failure Acute renal failure type: unspecified Severe sepsis shock status: without septic shock Qualified Code(s): A41.9 - Sepsis, unspecified organism; R65.20 - Severe sepsis without septic shock; N17.9 - Acute kidney failure, unspecified (3) AMILCAR (acute kidney injury) Code(s): N17.9 - ACUTE KIDNEY FAILURE, UNSPECIFIED (4) Diabetes Code(s): E11.9 - TYPE 2 DIABETES MELLITUS WITHOUT COMPLICATIONS Qualifiers: Diabetes mellitus type: type 2 Diabetes mellitus [facility] insulin use: with penitentiary use Diabetes mellitus complication status: with skin complications Diabetes mellitus complication detail: with foot ulcer Qualified Code(s): E11.621 - Type 2 diabetes mellitus with foot ulcer; L97.509 - Non-pressure chronic ulcer of other part of unspecified foot with unspecified severity; Z79.4 - USP (current) use of insulin (5) HLD (hyperlipidemia) Code(s): E78.5 - HYPERLIPIDEMIA, UNSPECIFIED (6) HTN (hypertension) Code(s): I10 - ESSENTIAL (PRIMARY) HYPERTENSION Qualifiers: Hypertension type: essential hypertension Qualified Code(s): I10 - Essential (primary) hypertension (7) Stage 4 skin ulcer of sacral region Code(s): L98.429 - NON-PRESSURE CHRONIC ULCER OF BACK WITH UNSPECIFIED SEVERITY plan continue current mgmt organisms noted abx rest continue current mgmt wound care
[2019-08-22] MEDS: COLLAGENASE CLOSTRIDIUM HIST. 30 GRAMS TUBE TP SCH (17:57)
[2019-08-23] MEDS: INSULIN SLIDING SCALE (NOVOLOG) 1 VIAL SQ SCH ×3 (06:03→18:04)
[2019-08-23] MEDS: INSULIN (LEVEMIR) 100 UNITS/ML UNITS SQ SCH ×2 (06:03→21:08)
[2019-08-23] MEDS ORDERED: MEROPENEM 1 GM VIAL (RESTRICTED TO ID) IVPB ONE ×2 (09:44→20:29)
[2019-08-23] MEDS ORDERED: DEXTROSE 5%-WATER 100 ML IVPB ONE ×2 (09:44→20:30)
[2019-08-23] MEDS: AMOX TR/POT CLAV 500MG/125MG TABLETS (FP) PO SCH ×2 (09:48→17:54)
[2019-08-23] MEDS: APIXABAN 2.5 MG TABLET PO SCH ×2 (09:48→21:07)
[2019-08-23] MEDS: LORazepam 0.5 MG TABLET PO SCH ×2 (09:48→21:07)
[2019-08-23] MEDS: PANTOPRAZOLE 40 MG TABLET (FP) PO SCH (09:48)
[2019-08-23] MEDS: MEROPENEM 1 GM in DEXTROSE 5%-WATER 100 ML IVPB SCH ×2 (09:48→21:06)
[2019-08-23] MEDS: FERROUS SO4 325 MG TABLET (FP) PO SCH (09:48)
[2019-08-23] MEDS: AMINO ACIDS/PROTEIN HYDROLYS 30 ML LIQUID.PKT PO SCH ×2 (09:49→17:54)
[2019-08-23] MEDS ORDERED: PT OWN MED DRAWER 7, Y5N ONE ×2 (09:51→13:29)
[2019-08-23] MEDS: risperiDONE 0.25 MG TABLET (FP) PO SCH ×2 (09:52→21:08)
[2019-08-23] MEDS: COLLAGENASE CLOSTRIDIUM HIST. 30 GRAMS TUBE TP SCH (09:52)
--- NOTE | 2019-08-23 11:53 | PN ---
Progress Note, Physician History of Present Illness: stable no new issues - Current Medication List Current Medications: Active Medications Amino Acids (Prosource No Carb Liquid Pkt) 30 ml PO BID@0800,1730 [facility] Last Admin: 08/23/19 09:49 Dose: 30 ml Amoxicillin/Clavulanate Potassium (Augmentin - 500mg Tablet) 1 tab PO BID@0800, 1730 [facility] Last Admin: 08/23/19 09:48 Dose: 1 tab Apixaban (Eliquis -) 2.5 mg PO BID [facility] Last Admin: 08/23/19 09:48 Dose: 2.5 mg Collagenase (Santyl -) 1 applic TP DAILY [facility]; Protocol Last Admin: 08/23/19 09:52 Dose: 1 applic Ferrous Sulfate (Feosol -) 325 mg PO DAILY [facility] Last Admin: 08/23/19 09:48 Dose: 325 mg Meropenem 1 gm/ Dextrose 100 mls @ 200 mls/hr IVPB Q12H [facility] Stop: 08/26/19 20:15 Last Admin: 08/23/19 09:48 Dose: 200 mls/hr Insulin Aspart (Novolog Vial Sliding Scale -) 1 vial SQ TIDAC [facility]; Protocol Last Admin: 08/23/19 06:03 Dose: 2 units Insulin Detemir (Levemir Vial) 6 units SQ BID@0700,2200 [facility] Last Admin: 08/23/19 06:03 Dose: 6 unit Lorazepam (Ativan -) 0.5 mg PO BID [facility] Last Admin: 08/23/19 09:48 Dose: 0.5 mg Pantoprazole Sodium (Protonix -) 40 mg PO DAILY [facility] Last Admin: 08/23/19 09:48 Dose: 40 mg Propranolol HCl (Inderal -) 20 mg PO BID [facility] Last Admin: 08/23/19 09:52 Dose: 20 mg Risperidone (Risperdal -) 0.25 mg PO BID [facility] Last Admin: 08/23/19 09:52 Dose: 0.25 mg Sitagliptin Phosphate (Januvia -) 25 mg PO DAILY@0700 [facility] Last Admin: 08/23/19 06:03 Dose: 25 mg - Objective Vital Signs: Vital Signs Temperature 98 F 08/23/19 10:03 Pulse Rate 95 H 08/23/19 10:03 Respiratory Rate 18 08/23/19 10:03 Blood Pressure 122/55 L 08/23/19 10:03 O2 Sat by Pulse Oximetry (%) 98 08/23/19 09:00 Constitutional: Yes: No Distress, Calm Cardiovascular: Yes: S1, S2 Respiratory: Yes: Regular, CTA Bilaterally Gastrointestinal: Yes: Normal Bowel Sounds, Soft Musculoskeletal: Yes: WNL Extremities: Yes: WNL Neurological: Yes: Alert, Other Psychiatric: Yes: Other Labs: CBC, BMP 08/22/19 05:30 08/22/19 05:30 INR, PTT INR 1.42 (0.83-1.09) H 08/10/19 20:15 Assessment/Plan Problem List - Problems (1) Afib Code(s): I48.91 - UNSPECIFIED ATRIAL FIBRILLATION (2) Sepsis Code(s): A41.9 - SEPSIS, UNSPECIFIED ORGANISM Qualifiers: Sepsis type: sepsis due to unspecified organism Sepsis acute organ dysfunction status: with acute organ dysfunction Severe sepsis acute organ dysfunction type: acute renal failure Acute renal failure type: unspecified Severe sepsis shock status: without septic shock Qualified Code(s): A41.9 - Sepsis, unspecified organism; R65.20 - Severe sepsis without septic shock; N17.9 - Acute kidney failure, unspecified (3) AMILCAR (acute kidney injury) Code(s): N17.9 - ACUTE KIDNEY FAILURE, UNSPECIFIED (4) Diabetes Code(s): E11.9 - TYPE 2 DIABETES MELLITUS WITHOUT COMPLICATIONS Qualifiers: Diabetes mellitus type: type 2 Diabetes mellitus skilled nursing insulin use: with termination clerk use Diabetes mellitus complication status: with skin complications Diabetes mellitus complication detail: with foot ulcer Qualified Code(s): E11.621 - Type 2 diabetes mellitus with foot ulcer; L97.509 - Non-pressure chronic ulcer of other part of unspecified foot with unspecified severity; Z79.4 - intermediate (current) use of insulin (5) HLD (hyperlipidemia) Code(s): E78.5 - HYPERLIPIDEMIA, UNSPECIFIED (6) HTN (hypertension) Code(s): I10 - ESSENTIAL (PRIMARY) HYPERTENSION Qualifiers: Hypertension type: essential hypertension Qualified Code(s): I10 - Essential (primary) hypertension (7) Stage 4 skin ulcer of sacral region Code(s): L98.429 - NON-PRESSURE CHRONIC ULCER OF BACK WITH UNSPECIFIED SEVERITY plan continue current mgmt organisms noted abx rest continue current mgmt wound care
[2019-08-23] MEDS ORDERED: INSULIN (NOVOLOG) ASPART 100 UNITS/ML 10ML VIAL ONE (13:10)
--- NOTE | 2019-08-23 13:12 | PN ---
Physical Exam: SUBJECTIVE: Patient seen and examined at the bedside. denies any malaise. OBJECTIVE: Patient is a 74 year old female (from [facility]) with PMH of HTN , DM2, HLD, chronic Afib (on eliquis), stage IV decubitus sacral ulcer, functional quadriplegia BIBEMS from [place] for anemia (Hgb 8.1). Pt has complained of mild abdominal discomfort and decreased appetite over the past 2 days. Also notes subjective fevers and chills. Upon arrival to the ED, pt was tachycardic at 129, febrile at 103.6. She denies any nausea, vomiting, chest pain, SOB, urinary symptoms, headaches. per ID, patient will need an additional week of Meropenemon-08/26/2019- in addition to augmentin Vital Signs Period Temp Pulse Resp BP Sys/Uribe Pulse Ox Last 24 Hr 97.4 F-98.3 F 72-95 18-20 110-122/55-67 98-98 GENERAL: The patient is awake, alert, in no acute distress. resting tremor left arm HEAD: Normal with no signs of trauma. EYES: PERRL, extraocular movements intact, sclera anicteric, conjunctiva clear. No ptosis. ENT: Ears normal, nares patent, oropharynx clear without exudates, moist mucous membranes. NECK: Trachea midline, full range of motion, supple. LUNGS: congested on upper lobes, lower lobes clear, tolerating room air HEART: Regular rate and rhythm ABDOMEN: mildly distended, + bowel sounds EXTREMITIES: no edema. NEUROLOGICAL: Normal speech, gait not observed. PSYCH: withdrawn SKIN: stage 4 sacrum Laboratory Results - last 24 hr 08/22/19 08/23/19 08/23/19 16:42 05:14 13:05 POC Glucometer 141 161 208 Active Medications Generic Name Dose Route Start Last Admin Trade Name Freq PRN Reason Stop Dose Admin Amino Acids 30 ml 08/13/19 17:30 08/23/19 09:49 Prosource No Carb Liquid Pkt PO 30 ml BID@0800,1730 [facility] Administration Amoxicillin/Clavulanate Potassium 1 tab 08/19/19 17:30 08/23/19 09:48 Augmentin - 500mg Tablet PO 1 tab BID@0800,1730 [facility] Administration Apixaban 2.5 mg 08/11/19 10:00 08/23/19 09:48 Eliquis - PO 2.5 mg BID [facility] Administration Collagenase 1 applic 08/11/19 18:00 08/23/19 09:52 Santyl - TP 1 applic DAILY [facility] Administration Protocol Ferrous Sulfate 325 mg 08/14/19 16:30 08/23/19 09:48 Feosol - PO 325 mg DAILY [facility] Administration Meropenem 1 gm/ Dextrose 100 mls @ 200 mls/hr 08/15/19 20:15 08/23/19 09:48 IVPB 08/26/19 20:15 200 mls/hr Q12H [facility] Administration Insulin Aspart 1 vial 08/11/19 07:00 08/23/19 13:11 Novolog Vial Sliding Scale - SQ 4 units TIDAC [facility] Administration Protocol Insulin Detemir 6 units 08/11/19 07:00 08/23/19 06:03 Levemir Vial SQ 6 unit BID@0700,2200 [facility] Administration Lorazepam 0.5 mg 08/11/19 22:00 08/23/19 09:48 Ativan - PO 0.5 mg BID [facility] Administration Pantoprazole Sodium 40 mg 08/15/19 16:30 08/23/19 09:48 Protonix - PO 40 mg DAILY [facility] Administration Propranolol HCl 20 mg 08/11/19 10:00 08/23/19 09:52 Inderal - PO 20 mg BID [facility] Administration Risperidone 0.25 mg 08/11/19 10:00 08/23/19 09:52 Risperdal - PO 0.25 mg BID [facility] Administration Sitagliptin Phosphate 25 mg 08/15/19 07:00 08/23/19 06:03 Januvia - PO 25 mg DAILY@0700 [facility] Administration ASSESSMENT/PLAN: Problem List - Problems (1) Sepsis Assessment/Plan: Stage IV decubitus sacral ulcer with erythematous borders, no odor or drainage. on santyl. UA: 1+ LE, 2+ blood, 2+ protein ESR: 119, CRP: 23.5 wound with pseudomonas, VRE, MSSA urine Cx VRE and blood Cx neg hx of MRSA in past, MRSA swab negative patient will need an additional week of Meropenemon-08/26/2019- in addition to augmentin MRI abd/pelvis withput evidence of osteomyelitis and no fluid collections seen vascular surgery (Dr. Solis) and no surgical intervention recommended Code(s): A41.9 - SEPSIS, UNSPECIFIED ORGANISM Qualifiers: Sepsis type: sepsis due to unspecified organism Sepsis acute organ dysfunction status: with acute organ dysfunction Severe sepsis acute organ dysfunction type: acute renal failure Acute renal failure type: unspecified Severe sepsis shock status: without septic shock Qualified Code(s): A41.9 - Sepsis, unspecified organism; R65.20 - Severe sepsis without septic shock; N17.9 - Acute kidney failure, unspecified (2) Afib Assessment/Plan: EKG on admission :sinus tachycardia, no st elevations or t wave inversions On eliquis 2.5mg BID Code(s): I48.91 - UNSPECIFIED ATRIAL FIBRILLATION (3) Dilated bile duct Assessment/Plan: Chronically dilated but nonobstructed common bile duct based on current MRCP per GI. Possible repeated passage of GB stones. Cholecystectomy declined by family and patient. Code(s): K83.8 - OTHER SPECIFIED DISEASES OF BILIARY TRACT (4) Incontinence Assessment/Plan: patterson catheter placed to divert urine from entering sacral wound Code(s): R32 - UNSPECIFIED URINARY INCONTINENCE (5) AMILCAR (acute kidney injury) Assessment/Plan: improving Likely 2/2 sepsis BUN/Cr: 55/ 2.2-on admission (baseline Cr: 1.4) Now 1.5 continue to monitor kidney function Avoid nephrotoxic agents Code(s): N17.9 - ACUTE KIDNEY FAILURE, UNSPECIFIED (6) Anemia Assessment/Plan: anemia without evidence of bleeding. EGD and colonoscopy declined hematology outpatient v inpatient Code(s): D64.9 - ANEMIA, UNSPECIFIED (7) Diabetes Assessment/Plan: Cont home levemir 6 units BID BGM AC/HS with novlog sliding scale Code(s): E11.9 - TYPE 2 DIABETES MELLITUS WITHOUT COMPLICATIONS Qualifiers: Diabetes mellitus type: type 2 Diabetes mellitus custodial insulin use: with custodial use Diabetes mellitus complication status: with skin complications Diabetes mellitus complication detail: with foot ulcer Qualified Code(s): E11.621 - Type 2 diabetes mellitus with foot ulcer; L97.509 - Non-pressure chronic ulcer of other part of unspecified foot with unspecified severity; Z79.4 - USP (current) use of insulin (8) Prophylactic measure Assessment/Plan: fen tolerating PO monitor electrolytes on eliquis turn and position q 2 Code(s): Z29.9 - ENCOUNTER FOR PROPHYLACTIC MEASURES, UNSPECIFIED Visit type - Emergency Visit Emergency Visit: Yes ED Registration Date: 08/10/19 Care time: The patient presented to the Emergency Department on the above date and was hospitalized for further evaluation of their emergent condition. - New Patient This patient is new to me today: No - Critical Care Critical Care patient: No - Discharge Referral Referred to [facility] Med P.C.: No
[2019-08-23 13:44] LABS: BASO % 0.7 % (0-2.0); EOS % 5.8 % (0-4.5); HEMATOCRIT 31.5 % (32.4-45.2); LYMPH % 32.8 % (8-40); MCH 26.2 pg (25.7-33.7); MCHC 31.8 g/dl (32.0-36.0); MEAN CELL VOLUME 82.5 fl (80-96); MEAN PLT VOLUME 8.4 fl (7.5-11.1); MONO % 16.5 % (3.8-10.2); NEUT % 44.2 % (42.8-82.8); PLATELET COUNT 378 K/MM3 (134-434); RBC 3.81 M/mm3 (3.60-5.2); RDW 17.9 % (11.6-15.6); WHITE BLOOD COUNT 4.4 K/mm3 (4.0-10.0)
[2019-08-23 14:01] LABS: ALBUMIN 2.3 g/dl (3.4-5.0); BILIRUBIN,TOTAL 0.3 mg/dL (0.2-1); BLOOD UREA NITROGEN 58.8 mg/dL (7-18); CALCIUM 8.9 mg/dL (8.5-10.1); CREATININE 1.6 mg/dL (0.55-1.3); MAGNESIUM 2.3 mg/dL (1.8-2.4); POTASSIUM 3.7 mmol/L (3.5-5.1); TOT PROT 7.3 g/dl (6.4-8.2)
[2019-08-23] MEDS ORDERED: diphenhydrAMINE HCL 25 MG CAPSULE (FP) PO PRN (17:22)
[2019-08-23] MEDS: BACITRACIN 15 GM TUBE TOPICAL OINTMENT TP SCH ×2 (17:55→21:14)
[2019-08-24] MEDS: INSULIN SLIDING SCALE (NOVOLOG) 1 VIAL SQ SCH ×3 (06:01→16:30)
[2019-08-24] MEDS: INSULIN (LEVEMIR) 100 UNITS/ML UNITS SQ SCH ×2 (06:04→21:41)
[2019-08-24] MEDS ORDERED: DEXTROSE 5%-WATER 100 ML IVPB ONE ×2 (07:54→20:19)
[2019-08-24] MEDS ORDERED: MEROPENEM 1 GM VIAL (RESTRICTED TO ID) IVPB ONE ×2 (07:54→20:19)
[2019-08-24 07:55] LABS: BASO % 0.7 % (0-2.0); EOS % 6.4 % (0-4.5); HEMATOCRIT 31.3 % (32.4-45.2); LYMPH % 34.5 % (8-40); MCH 26.2 pg (25.7-33.7); MCHC 31.8 g/dl (32.0-36.0); MEAN CELL VOLUME 82.2 fl (80-96); MEAN PLT VOLUME 8.5 fl (7.5-11.1); MONO % 13.7 % (3.8-10.2); NEUT % 44.7 % (42.8-82.8); PLATELET COUNT 377 K/MM3 (134-434); RDW 17.9 % (11.6-15.6); WHITE BLOOD COUNT 4.7 K/mm3 (4.0-10.0)
[2019-08-24 08:08] LABS: ALBUMIN 2.4 g/dl (3.4-5.0); BILIRUBIN,TOTAL 0.2 mg/dL (0.2-1); CALCIUM 9.3 mg/dL (8.5-10.1); CREATININE 1.5 mg/dL (0.55-1.3); MAGNESIUM 2.2 mg/dL (1.8-2.4); POTASSIUM 4.1 mmol/L (3.5-5.1); TOT PROT 7.4 g/dl (6.4-8.2)
[2019-08-24] MEDS: AMINO ACIDS/PROTEIN HYDROLYS 30 ML LIQUID.PKT PO SCH ×2 (08:26→17:20)
[2019-08-24] MEDS: AMOX TR/POT CLAV 500MG/125MG TABLETS (FP) PO SCH ×2 (08:26→17:20)
[2019-08-24] MEDS: MEROPENEM 1 GM in DEXTROSE 5%-WATER 100 ML IVPB SCH ×2 (08:26→20:44)
[2019-08-24] MEDS: APIXABAN 2.5 MG TABLET PO SCH ×2 (10:49→21:38)
[2019-08-24] MEDS: LORazepam 0.5 MG TABLET PO SCH ×2 (10:49→21:38)
[2019-08-24] MEDS: FERROUS SO4 325 MG TABLET (FP) PO SCH (10:49)
[2019-08-24] MEDS: PANTOPRAZOLE 40 MG TABLET (FP) PO SCH (10:49)
[2019-08-24] MEDS: BACITRACIN 15 GM TUBE TOPICAL OINTMENT TP SCH ×2 (10:53→22:15)
[2019-08-24] MEDS: risperiDONE 0.25 MG TABLET (FP) PO SCH ×2 (10:54→21:39)
[2019-08-24] MEDS: COLLAGENASE CLOSTRIDIUM HIST. 30 GRAMS TUBE TP SCH (12:13)
--- NOTE | 2019-08-24 13:43 | PN ---
Progress Note, Physician History of Present Illness: stable no new issues - Current Medication List Current Medications: Active Medications Amino Acids (Prosource No Carb Liquid Pkt) 30 ml PO BID@0800,1730 [facility] Last Admin: 08/24/19 08:26 Dose: 30 ml Amoxicillin/Clavulanate Potassium (Augmentin - 500mg Tablet) 1 tab PO BID@0800, 1730 [facility] Last Admin: 08/24/19 08:26 Dose: 1 tab Apixaban (Eliquis -) 2.5 mg PO BID [facility] Last Admin: 08/24/19 10:49 Dose: 2.5 mg Bacitracin (Bacitracin -) 1 applic TP BID [facility] Last Admin: 08/24/19 10:53 Dose: 1 appful Collagenase (Santyl -) 1 applic TP DAILY [facility]; Protocol Last Admin: 08/24/19 12:13 Dose: 1 applic Diphenhydramine HCl (Benadryl -) 25 mg PO Q6H PRN PRN Reason: FOR ITCHING Ferrous Sulfate (Feosol -) 325 mg PO DAILY [facility] Last Admin: 08/24/19 10:49 Dose: 325 mg Meropenem 1 gm/ Dextrose 100 mls @ 200 mls/hr IVPB Q12H [facility] Stop: 08/26/19 20:15 Last Admin: 08/24/19 08:26 Dose: 200 mls/hr Insulin Aspart (Novolog Vial Sliding Scale -) 1 vial SQ TIDAC [facility]; Protocol Last Admin: 08/24/19 11:54 Dose: 2 units Insulin Detemir (Levemir Vial) 6 units SQ BID@0700,2200 [facility] Last Admin: 08/24/19 06:04 Dose: 6 unit Lorazepam (Ativan -) 0.5 mg PO BID [facility] Last Admin: 08/24/19 10:49 Dose: 0.5 mg Nystatin (Nystop Powder -) 1 applic TP BID [facility] Pantoprazole Sodium (Protonix -) 40 mg PO DAILY [facility] Last Admin: 08/24/19 10:49 Dose: 40 mg Propranolol HCl (Inderal -) 20 mg PO BID [facility] Last Admin: 08/24/19 10:49 Dose: 20 mg Risperidone (Risperdal -) 0.25 mg PO BID [facility] Last Admin: 08/24/19 10:54 Dose: 0.25 mg Sitagliptin Phosphate (Januvia -) 25 mg PO DAILY@0700 [facility] Last Admin: 08/24/19 06:01 Dose: 25 mg - Objective Vital Signs: Vital Signs Temperature 98.5 F 08/24/19 06:00 Pulse Rate 81 08/24/19 06:00 Respiratory Rate 20 08/24/19 06:00 Blood Pressure 139/77 08/24/19 06:00 O2 Sat by Pulse Oximetry (%) 96 08/23/19 21:00 Constitutional: Yes: No Distress, Calm Cardiovascular: Yes: S1, S2 Respiratory: Yes: Regular, CTA Bilaterally Gastrointestinal: Yes: Normal Bowel Sounds, Soft Musculoskeletal: Yes: WNL Extremities: Yes: WNL Neurological: Yes: Alert, Oriented Psychiatric: Yes: Alert, Oriented Labs: CBC, BMP 08/24/19 06:20 08/24/19 06:20 INR, PTT INR 1.42 (0.83-1.09) H 08/10/19 20:15 Assessment/Plan Problem List - Problems (1) Afib Code(s): I48.91 - UNSPECIFIED ATRIAL FIBRILLATION (2) Sepsis Code(s): A41.9 - SEPSIS, UNSPECIFIED ORGANISM Qualifiers: Sepsis type: sepsis due to unspecified organism Sepsis acute organ dysfunction status: with acute organ dysfunction Severe sepsis acute organ dysfunction type: acute renal failure Acute renal failure type: unspecified Severe sepsis shock status: without septic shock Qualified Code(s): A41.9 - Sepsis, unspecified organism; R65.20 - Severe sepsis without septic shock; N17.9 - Acute kidney failure, unspecified (3) AMILCAR (acute kidney injury) Code(s): N17.9 - ACUTE KIDNEY FAILURE, UNSPECIFIED (4) Diabetes Code(s): E11.9 - TYPE 2 DIABETES MELLITUS WITHOUT COMPLICATIONS Qualifiers: Diabetes mellitus type: type 2 Diabetes mellitus senior care insulin use: with senior care use Diabetes mellitus complication status: with skin complications Diabetes mellitus complication detail: with foot ulcer Qualified Code(s): E11.621 - Type 2 diabetes mellitus with foot ulcer; L97.509 - Non-pressure chronic ulcer of other part of unspecified foot with unspecified severity; Z79.4 - group home (current) use of insulin (5) HLD (hyperlipidemia) Code(s): E78.5 - HYPERLIPIDEMIA, UNSPECIFIED (6) HTN (hypertension) Code(s): I10 - ESSENTIAL (PRIMARY) HYPERTENSION Qualifiers: Hypertension type: essential hypertension Qualified Code(s): I10 - Essential (primary) hypertension (7) Stage 4 skin ulcer of sacral region Code(s): L98.429 - NON-PRESSURE CHRONIC ULCER OF BACK WITH UNSPECIFIED SEVERITY plan continue current mgmt organisms noted abx rest continue current mgmt wound care
--- NOTE | 2019-08-24 15:15 | PN ---
Physical Exam: SUBJECTIVE: Patient seen and examined at the bedside. in no acute distress. wishes that she can walk, but refusing physical therapy. OBJECTIVE: Patient is a 74 year old female (from [facility]) with PMH of HTN , DM2, HLD, chronic Afib (on eliquis), stage IV decubitus sacral ulcer, functional quadriplegia BIBEMS from [place] for anemia (Hgb 8.1). Pt has complained of mild abdominal discomfort and decreased appetite over the past 2 days. Also notes subjective fevers and chills. Upon arrival to the ED, pt was tachycardic at 129, febrile at 103.6. She denies any nausea, vomiting, chest pain, SOB, urinary symptoms, headaches. per ID, patient will need an additional week of Meropenemon-08/26/2019- in addition to augmentin Vital Signs Period Temp Pulse Resp BP Sys/Uribe Pulse Ox Last 24 Hr 97.7 F-98.5 F 73-82 18-20 124-139/54-77 96 GENERAL: The patient is awake, alert, in no acute distress. resting tremor left arm HEAD: Normal with no signs of trauma. EYES: PERRL, extraocular movements intact, sclera anicteric, conjunctiva clear. No ptosis. ENT: Ears normal, nares patent, oropharynx clear without exudates, moist mucous membranes. NECK: Trachea midline, full range of motion, supple. LUNGS: congested on upper lobes, lower lobes clear, tolerating room air HEART: Regular rate and rhythm ABDOMEN: mildly distended, + bowel sounds EXTREMITIES: no edema. NEUROLOGICAL: Normal speech, gait not observed. PSYCH: withdrawn SKIN: stage 4 sacrum Laboratory Results - last 24 hr 08/23/19 08/23/19 08/24/19 17:57 21:04 05:58 WBC RBC Hgb Hct MCV MCH MCHC RDW Plt Count MPV Absolute Neuts (auto) Neutrophils % Lymphocytes % Monocytes % Eosinophils % Basophils % Nucleated RBC % Sodium Potassium Chloride Carbon Dioxide Anion Gap BUN Creatinine Est GFR (CKD-EPI)AfAm Est GFR (CKD-EPI)NonAf POC Glucometer 113 170 164 Random Glucose Calcium Magnesium Total Bilirubin AST ALT Alkaline Phosphatase Total Protein Albumin 08/24/19 08/24/19 08/24/19 06:20 06:20 11:51 WBC 4.7 RBC 3.80 Hgb 10.0 L Hct 31.3 L MCV 82.2 MCH 26.2 MCHC 31.8 L RDW 17.9 H Plt Count 377 MPV 8.5 Absolute Neuts (auto) 2.1 Neutrophils % 44.7 Lymphocytes % 34.5 Monocytes % 13.7 H Eosinophils % 6.4 H Basophils % 0.7 Nucleated RBC % 0 Sodium 140 Potassium 4.1 Chloride 113 H Carbon Dioxide 17 L Anion Gap 11 BUN 50.0 H Creatinine 1.5 H Est GFR (CKD-EPI)AfAm 39.64 Est GFR (CKD-EPI)NonAf 34.21 POC Glucometer 185 Random Glucose 175 H Calcium 9.3 Magnesium 2.2 Total Bilirubin 0.2 AST 12 L ALT 28 Alkaline Phosphatase 128 H Total Protein 7.4 Albumin 2.4 L Active Medications Generic Name Dose Route Start Last Admin Trade Name Freq PRN Reason Stop Dose Admin Amino Acids 30 ml 08/13/19 17:30 08/24/19 08:26 Prosource No Carb Liquid Pkt PO 30 ml BID@0800,1730 [facility] Administration Amoxicillin/Clavulanate Potassium 1 tab 08/19/19 17:30 08/24/19 08:26 Augmentin - 500mg Tablet PO 1 tab BID@0800,1730 [facility] Administration Apixaban 2.5 mg 08/11/19 10:00 08/24/19 10:49 Eliquis - PO 2.5 mg BID [facility] Administration Bacitracin 1 applic 08/23/19 17:21 08/24/19 10:53 Bacitracin - TP 1 appful BID [facility] Administration Collagenase 1 applic 08/11/19 18:00 08/24/19 12:13 Santyl - TP 1 applic DAILY [facility] Administration Protocol Diphenhydramine HCl 25 mg 08/23/19 17:22 Benadryl - PO Q6H PRN FOR ITCHING Ferrous Sulfate 325 mg 08/14/19 16:30 08/24/19 10:49 Feosol - PO 325 mg DAILY [facility] Administration Meropenem 1 gm/ Dextrose 100 mls @ 200 mls/hr 08/15/19 20:15 08/24/19 08:26 IVPB 08/26/19 20:15 200 mls/hr Q12H [facility] Administration Insulin Aspart 1 vial 08/11/19 07:00 08/24/19 11:54 Novolog Vial Sliding Scale - SQ 2 units TIDAC [facility] Administration Protocol Insulin Detemir 6 units 08/11/19 07:00 08/24/19 06:04 Levemir Vial SQ 6 unit BID@0700,2200 [facility] Administration Lorazepam 0.5 mg 08/11/19 22:00 08/24/19 10:49 Ativan - PO 0.5 mg BID [facility] Administration Nystatin 1 applic 08/24/19 12:00 Nystop Powder - TP BID [facility] Pantoprazole Sodium 40 mg 08/15/19 16:30 08/24/19 10:49 Protonix - PO 40 mg DAILY [facility] Administration Propranolol HCl 20 mg 08/11/19 10:00 08/24/19 10:49 Inderal - PO 20 mg BID [facility] Administration Risperidone 0.25 mg 08/11/19 10:00 08/24/19 10:54 Risperdal - PO 0.25 mg BID [facility] Administration Sitagliptin Phosphate 25 mg 08/15/19 07:00 08/24/19 06:01 Januvia - PO 25 mg DAILY@0700 [facility] Administration ASSESSMENT/PLAN: Problem List - Problems (1) Sepsis Assessment/Plan: Stage IV decubitus sacral ulcer with erythematous borders, no odor or drainage. on santyl. wound with pseudomonas, VRE, MSSA patient will need Meropenemon/augmentin until 08/26/2019, then discharge back to [facility] abd/pelvis withput evidence of osteomyelitis and no fluid collections seen vascular surgery (Dr. Solis) and no surgical intervention recommended Code(s): A41.9 - SEPSIS, UNSPECIFIED ORGANISM Qualifiers: Sepsis type: sepsis due to unspecified organism Sepsis acute organ dysfunction status: with acute organ dysfunction Severe sepsis acute organ dysfunction type: acute renal failure Acute renal failure type: unspecified Severe sepsis shock status: without septic shock Qualified Code(s): A41.9 - Sepsis, unspecified organism; R65.20 - Severe sepsis without septic shock; N17.9 - Acute kidney failure, unspecified (2) Afib Assessment/Plan: EKG on admission :sinus tachycardia, no st elevations or t wave inversions On eliquis 2.5mg BID Code(s): I48.91 - UNSPECIFIED ATRIAL FIBRILLATION (3) Dilated bile duct Assessment/Plan: Chronically dilated but nonobstructed common bile duct based on current MRCP per GI. Possible repeated passage of GB stones. Cholecystectomy declined by family and patient. Code(s): K83.8 - OTHER SPECIFIED DISEASES OF BILIARY TRACT (4) Incontinence Assessment/Plan: patterson catheter placed to divert urine from entering sacral wound Code(s): R32 - UNSPECIFIED URINARY INCONTINENCE (5) AMILCAR (acute kidney injury) Assessment/Plan: improving Likely 2/2 sepsis BUN/Cr: 55/ 2.2-on admission (baseline Cr: 1.4) Now 1.5 continue to monitor kidney function Avoid nephrotoxic agents Code(s): N17.9 - ACUTE KIDNEY FAILURE, UNSPECIFIED (6) Anemia Assessment/Plan: anemia without evidence of bleeding. EGD and colonoscopy declined hematology outpatient v inpatient Code(s): D64.9 - ANEMIA, UNSPECIFIED (7) Diabetes Assessment/Plan: Cont home levemir 6 units BID BGM AC/HS with novlog sliding scale Code(s): E11.9 - TYPE 2 DIABETES MELLITUS WITHOUT COMPLICATIONS Qualifiers: Diabetes mellitus type: type 2 Diabetes mellitus group home insulin use: with long chain beamer use Diabetes mellitus complication status: with skin complications Diabetes mellitus complication detail: with foot ulcer Qualified Code(s): E11.621 - Type 2 diabetes mellitus with foot ulcer; L97.509 - Non-pressure chronic ulcer of other part of unspecified foot with unspecified severity; Z79.4 - USP (current) use of insulin (8) Prophylactic measure Assessment/Plan: fen tolerating PO monitor electrolytes on eliquis turn and position q 2 Code(s): Z29.9 - ENCOUNTER FOR PROPHYLACTIC MEASURES, UNSPECIFIED Visit type - Emergency Visit Emergency Visit: Yes ED Registration Date: 08/10/19 Care time: The patient presented to the Emergency Department on the above date and was hospitalized for further evaluation of their emergent condition. - New Patient This patient is new to me today: No - Critical Care Critical Care patient: No - Discharge Referral Referred to [facility] Med P.C.: No
[2019-08-24] MEDS: NYSTATIN POWDER 100,000 UNITS/GM - 15 GM TOPICAL POWDER TP SCH ×2 (17:20→22:15)
[2019-08-24] MEDS ORDERED: PT OWN MED DRAWER 7, Y5N ONE (20:19)
[2019-08-25 06:59] LABS: BASO % 0.3 % (0-2.0); HEMATOCRIT 32.5 % (32.4-45.2); HEMOGLOBIN 10.3 GM/dL (10.7-15.3); LYMPH % 23.6 % (8-40); MCHC 31.8 g/dl (32.0-36.0); MEAN CELL VOLUME 81.6 fl (80-96); MEAN PLT VOLUME 8.7 fl (7.5-11.1); MONO % 12.2 % (3.8-10.2); NEUT % 58.9 % (42.8-82.8); PLATELET COUNT 371 K/MM3 (134-434); RBC 3.98 M/mm3 (3.60-5.2); RDW 18.1 % (11.6-15.6); WHITE BLOOD COUNT 5.8 K/mm3 (4.0-10.0)
[2019-08-25] MEDS: INSULIN SLIDING SCALE (NOVOLOG) 1 VIAL SQ SCH ×4 (07:02→17:44)
[2019-08-25] MEDS: INSULIN (LEVEMIR) 100 UNITS/ML UNITS SQ SCH ×2 (07:03→21:24)
[2019-08-25] MEDS ORDERED: MEROPENEM 1 GM VIAL (RESTRICTED TO ID) IVPB ONE ×2 (07:55→21:16)
[2019-08-25] MEDS ORDERED: DEXTROSE 5%-WATER 100 ML IVPB ONE ×2 (07:55→21:16)
[2019-08-25] MEDS: AMINO ACIDS/PROTEIN HYDROLYS 30 ML LIQUID.PKT PO SCH ×2 (07:58→17:39)
[2019-08-25] MEDS: AMOX TR/POT CLAV 500MG/125MG TABLETS (FP) PO SCH ×2 (07:58→17:39)
[2019-08-25] MEDS: MEROPENEM 1 GM in DEXTROSE 5%-WATER 100 ML IVPB SCH ×2 (07:58→21:23)
[2019-08-25 08:02] LABS: ALBUMIN 2.4 g/dl (3.4-5.0); BILIRUBIN,TOTAL 0.3 mg/dL (0.2-1); BLOOD UREA NITROGEN 53.6 mg/dL (7-18); CREATININE 1.5 mg/dL (0.55-1.3); MAGNESIUM 2.3 mg/dL (1.8-2.4); POTASSIUM 4.1 mmol/L (3.5-5.1); TOT PROT 7.4 g/dl (6.4-8.2)
[2019-08-25] MEDS ORDERED: PT OWN MED DRAWER 7, Y5N ONE ×2 (09:23→21:16)
[2019-08-25] MEDS: PANTOPRAZOLE 40 MG TABLET (FP) PO SCH (09:24)
[2019-08-25] MEDS: FERROUS SO4 325 MG TABLET (FP) PO SCH (09:24)
[2019-08-25] MEDS: LORazepam 0.5 MG TABLET PO SCH ×2 (09:24→21:23)
[2019-08-25] MEDS: risperiDONE 0.25 MG TABLET (FP) PO SCH ×2 (09:24→21:23)
[2019-08-25] MEDS: APIXABAN 2.5 MG TABLET PO SCH ×2 (09:24→21:23)
[2019-08-25] MEDS: BACITRACIN 15 GM TUBE TOPICAL OINTMENT TP SCH ×2 (09:25→21:24)
[2019-08-25] MEDS: NYSTATIN POWDER 100,000 UNITS/GM - 15 GM TOPICAL POWDER TP SCH ×2 (09:25→21:53)
[2019-08-25] MEDS: COLLAGENASE CLOSTRIDIUM HIST. 30 GRAMS TUBE TP SCH (11:58)
--- NOTE | 2019-08-25 14:00 | PN ---
Progress Note, Physician History of Present Illness: stable no new issues - Current Medication List Current Medications: Active Medications Amino Acids (Prosource No Carb Liquid Pkt) 30 ml PO BID@0800,1730 [facility] Last Admin: 08/25/19 07:58 Dose: 30 ml Amoxicillin/Clavulanate Potassium (Augmentin - 500mg Tablet) 1 tab PO BID@0800, 1730 [facility] Last Admin: 08/25/19 07:58 Dose: 1 tab Apixaban (Eliquis -) 2.5 mg PO BID [facility] Last Admin: 08/25/19 09:24 Dose: 2.5 mg Bacitracin (Bacitracin -) 1 applic TP BID [facility] Last Admin: 08/25/19 09:25 Dose: 1 appful Collagenase (Santyl -) 1 applic TP DAILY [facility]; Protocol Last Admin: 08/24/19 12:13 Dose: 1 applic Diphenhydramine HCl (Benadryl -) 25 mg PO Q6H PRN PRN Reason: FOR ITCHING Ferrous Sulfate (Feosol -) 325 mg PO DAILY [facility] Last Admin: 08/25/19 09:24 Dose: 325 mg Meropenem 1 gm/ Dextrose 100 mls @ 200 mls/hr IVPB Q12H [facility] Stop: 08/26/19 20:15 Last Admin: 08/25/19 07:58 Dose: 200 mls/hr Insulin Aspart (Novolog Vial Sliding Scale -) 1 vial SQ TIDAC [facility]; Protocol Last Admin: 08/25/19 07:02 Dose: 4 units Insulin Detemir (Levemir Vial) 6 units SQ BID@0700,2200 [facility] Last Admin: 08/25/19 07:03 Dose: 6 unit Lorazepam (Ativan -) 0.5 mg PO BID [facility] Last Admin: 08/25/19 09:24 Dose: 0.5 mg Nystatin (Nystop Powder -) 1 applic TP BID [facility] Last Admin: 08/25/19 09:25 Dose: 1 applic Pantoprazole Sodium (Protonix -) 40 mg PO DAILY [facility] Last Admin: 08/25/19 09:24 Dose: 40 mg Propranolol HCl (Inderal -) 20 mg PO BID [facility] Last Admin: 08/25/19 09:25 Dose: 20 mg Risperidone (Risperdal -) 0.25 mg PO BID [facility] Last Admin: 08/25/19 09:24 Dose: 0.25 mg Sitagliptin Phosphate (Januvia -) 25 mg PO DAILY@0700 [facility] Last Admin: 08/25/19 07:02 Dose: 25 mg - Objective Vital Signs: Vital Signs Temperature 98.6 F 08/25/19 06:12 Pulse Rate 97 H 08/25/19 06:12 Respiratory Rate 20 08/25/19 06:12 Blood Pressure 130/58 L 08/25/19 06:12 O2 Sat by Pulse Oximetry (%) 96 08/24/19 21:00 Constitutional: Yes: No Distress, Calm Cardiovascular: Yes: S1, S2 Respiratory: Yes: Regular, CTA Bilaterally Gastrointestinal: Yes: Normal Bowel Sounds, Soft Musculoskeletal: Yes: Other Extremities: Yes: WNL Wound/Incision: Yes: Dressing Dry and Intact Neurological: Yes: Alert, Oriented Psychiatric: Yes: Alert, Oriented Labs: CBC, BMP 08/25/19 05:25 08/25/19 05:25 INR, PTT INR 1.42 (0.83-1.09) H 08/10/19 20:15 Assessment/Plan Problem List - Problems (1) Afib Code(s): I48.91 - UNSPECIFIED ATRIAL FIBRILLATION (2) Sepsis Code(s): A41.9 - SEPSIS, UNSPECIFIED ORGANISM Qualifiers: Sepsis type: sepsis due to unspecified organism Sepsis acute organ dysfunction status: with acute organ dysfunction Severe sepsis acute organ dysfunction type: acute renal failure Acute renal failure type: unspecified Severe sepsis shock status: without septic shock Qualified Code(s): A41.9 - Sepsis, unspecified organism; R65.20 - Severe sepsis without septic shock; N17.9 - Acute kidney failure, unspecified (3) AMILCAR (acute kidney injury) Code(s): N17.9 - ACUTE KIDNEY FAILURE, UNSPECIFIED (4) Diabetes Code(s): E11.9 - TYPE 2 DIABETES MELLITUS WITHOUT COMPLICATIONS Qualifiers: Diabetes mellitus type: type 2 Diabetes mellitus exterminator helper termite insulin use: with exterminator helper termite use Diabetes mellitus complication status: with skin complications Diabetes mellitus complication detail: with foot ulcer Qualified Code(s): E11.621 - Type 2 diabetes mellitus with foot ulcer; L97.509 - Non-pressure chronic ulcer of other part of unspecified foot with unspecified severity; Z79.4 - [facility] (current) use of insulin (5) HLD (hyperlipidemia) Code(s): E78.5 - HYPERLIPIDEMIA, UNSPECIFIED (6) HTN (hypertension) Code(s): I10 - ESSENTIAL (PRIMARY) HYPERTENSION Qualifiers: Hypertension type: essential hypertension Qualified Code(s): I10 - Essential (primary) hypertension (7) Stage 4 skin ulcer of sacral region Code(s): L98.429 - NON-PRESSURE CHRONIC ULCER OF BACK WITH UNSPECIFIED SEVERITY plan continue current mgmt organisms noted abx rest continue current mgmt wound care can stop abx tomorrow
--- NOTE | 2019-08-25 14:35 | PN ---
Physical Exam: SUBJECTIVE: Patient seen and examined at the bedside. daughter at bedside. OBJECTIVE: Patient is a 74 year old female (from [facility]) with PMH of HTN , DM2, HLD, chronic Afib (on eliquis), stage IV decubitus sacral ulcer, functional quadriplegia BIBEMS from [facility] for anemia (Hgb 8.1). Pt has complained of mild abdominal discomfort and decreased appetite over the past 2 days. Also notes subjective fevers and chills. Upon arrival to the ED, pt was tachycardic at 129, febrile at 103.6. She denies any nausea, vomiting, chest pain, SOB, urinary symptoms, headaches. per ID, patient can discontinue all antibiotics on 08/26/19 and can be discharged back to [facility]. ------- right eye eyebrow bruise numerous scratches on back, self inflicted will add bacitracin. Vital Signs Period Temp Pulse Resp BP Sys/Uribe Pulse Ox Last 24 Hr 98 F-98.6 F 72-99 18-20 111-143/51-59 96 GENERAL: The patient is awake, alert, in no acute distress. resting tremor left arm HEAD: Normal with no signs of trauma. EYES: PERRL, extraocular movements intact, sclera anicteric, conjunctiva clear. No ptosis. ENT: Ears normal, nares patent, oropharynx clear without exudates, moist mucous membranes. NECK: Trachea midline, full range of motion, supple. LUNGS: congested on upper lobes, lower lobes clear, tolerating room air HEART: Regular rate and rhythm ABDOMEN: mildly distended, + bowel sounds EXTREMITIES: no edema. NEUROLOGICAL: Normal speech, gait not observed. PSYCH: withdrawn SKIN: stage 4 sacrum, scratches on upper back, skin tear on upper back, apply bacitracin Laboratory Results - last 24 hr 08/24/19 08/24/19 08/25/19 16:28 20:41 05:25 WBC 5.8 RBC 3.98 Hgb 10.3 L Hct 32.5 MCV 81.6 MCH 26.0 MCHC 31.8 L RDW 18.1 H Plt Count 371 MPV 8.7 Absolute Neuts (auto) 3.4 Neutrophils % 58.9 D Lymphocytes % 23.6 D Monocytes % 12.2 H Eosinophils % 5.0 H Basophils % 0.3 Nucleated RBC % 0 Sodium Potassium Chloride Carbon Dioxide Anion Gap BUN Creatinine Est GFR (CKD-EPI)AfAm Est GFR (CKD-EPI)NonAf POC Glucometer 142 199 Random Glucose Calcium Magnesium Total Bilirubin AST ALT Alkaline Phosphatase Total Protein Albumin 08/25/19 08/25/19 08/25/19 05:25 05:27 11:39 WBC RBC Hgb Hct MCV MCH MCHC RDW Plt Count MPV Absolute Neuts (auto) Neutrophils % Lymphocytes % Monocytes % Eosinophils % Basophils % Nucleated RBC % Sodium 141 Potassium 4.1 Chloride 115 H Carbon Dioxide 15 L Anion Gap 10 BUN 53.6 H Creatinine 1.5 H Est GFR (CKD-EPI)AfAm 39.64 Est GFR (CKD-EPI)NonAf 34.21 POC Glucometer 221 188 Random Glucose 234 H Calcium 9.0 Magnesium 2.3 Total Bilirubin 0.3 AST 14 L ALT 28 Alkaline Phosphatase 129 H Total Protein 7.4 Albumin 2.4 L Active Medications Generic Name Dose Route Start Last Admin Trade Name Freq PRN Reason Stop Dose Admin Amino Acids 30 ml 08/13/19 17:30 08/25/19 07:58 Prosource No Carb Liquid Pkt PO 30 ml BID@0800,1730 [facility] Administration Amoxicillin/Clavulanate Potassium 1 tab 08/19/19 17:30 08/25/19 07:58 Augmentin - 500mg Tablet PO 1 tab BID@0800,1730 [facility] Administration Apixaban 2.5 mg 08/11/19 10:00 08/25/19 09:24 Eliquis - PO 2.5 mg BID [facility] Administration Bacitracin 1 applic 08/23/19 17:21 08/25/19 09:25 Bacitracin - TP 1 appful BID [facility] Administration Collagenase 1 applic 08/11/19 18:00 08/24/19 12:13 Santyl - TP 1 applic DAILY [facility] Administration Protocol Diphenhydramine HCl 25 mg 08/23/19 17:22 Benadryl - PO Q6H PRN FOR ITCHING Ferrous Sulfate 325 mg 08/14/19 16:30 08/25/19 09:24 Feosol - PO 325 mg DAILY [facility] Administration Meropenem 1 gm/ Dextrose 100 mls @ 200 mls/hr 08/15/19 20:15 08/25/19 07:58 IVPB 08/26/19 20:15 200 mls/hr Q12H [facility] Administration Insulin Aspart 1 vial 08/11/19 07:00 08/25/19 07:02 Novolog Vial Sliding Scale - SQ 4 units TIDAC [facility] Administration Protocol Insulin Detemir 6 units 08/11/19 07:00 08/25/19 07:03 Levemir Vial SQ 6 unit BID@0700,2200 [facility] Administration Lorazepam 0.5 mg 08/11/19 22:00 08/25/19 09:24 Ativan - PO 0.5 mg BID [facility] Administration Nystatin 1 applic 08/24/19 12:00 08/25/19 09:25 Nystop Powder - TP 1 applic BID [facility] Administration Pantoprazole Sodium 40 mg 08/15/19 16:30 08/25/19 09:24 Protonix - PO 40 mg DAILY [facility] Administration Propranolol HCl 20 mg 08/11/19 10:00 08/25/19 09:25 Inderal - PO 20 mg BID [facility] Administration Risperidone 0.25 mg 08/11/19 10:00 08/25/19 09:24 Risperdal - PO 0.25 mg BID [facility] Administration Sitagliptin Phosphate 25 mg 08/15/19 07:00 08/25/19 07:02 Januvia - PO 25 mg DAILY@0700 [facility] Administration ASSESSMENT/PLAN: Problem List - Problems (1) Sepsis Assessment/Plan: Stage IV decubitus sacral ulcer with erythematous borders, no odor or drainage. on santyl. wound with pseudomonas, VRE, MSSA patient will need Meropenemon/augmentin until 08/26/2019, then discharge back to [facility] abd/pelvis withput evidence of osteomyelitis and no fluid collections seen vascular surgery (Dr. Solis) and no surgical intervention recommended Code(s): A41.9 - SEPSIS, UNSPECIFIED ORGANISM Qualifiers: Sepsis type: sepsis due to unspecified organism Sepsis acute organ dysfunction status: with acute organ dysfunction Severe sepsis acute organ dysfunction type: acute renal failure Acute renal failure type: unspecified Severe sepsis shock status: without septic shock Qualified Code(s): A41.9 - Sepsis, unspecified organism; R65.20 - Severe sepsis without septic shock; N17.9 - Acute kidney failure, unspecified (2) Afib Assessment/Plan: EKG on admission :sinus tachycardia, no st elevations or t wave inversions On eliquis 2.5mg BID Code(s): I48.91 - UNSPECIFIED ATRIAL FIBRILLATION (3) Dilated bile duct Assessment/Plan: Chronically dilated but nonobstructed common bile duct based on current MRCP per GI. Possible repeated passage of GB stones. Cholecystectomy declined by family and patient. Code(s): K83.8 - OTHER SPECIFIED DISEASES OF BILIARY TRACT (4) Incontinence Assessment/Plan: patterson catheter placed to divert urine from entering sacral wound Code(s): R32 - UNSPECIFIED URINARY INCONTINENCE (5) AMILCAR (acute kidney injury) Assessment/Plan: improving Likely 2/2 sepsis BUN/Cr: 55/ 2.2-on admission (baseline Cr: 1.4) Now 1.5 continue to monitor kidney function Avoid nephrotoxic agents Code(s): N17.9 - ACUTE KIDNEY FAILURE, UNSPECIFIED (6) Anemia Assessment/Plan: anemia without evidence of bleeding. EGD and colonoscopy declined hematology outpatient v inpatient Code(s): D64.9 - ANEMIA, UNSPECIFIED (7) Diabetes Assessment/Plan: Cont home levemir 6 units BID BGM AC/HS with novlog sliding scale Code(s): E11.9 - TYPE 2 DIABETES MELLITUS WITHOUT COMPLICATIONS Qualifiers: Diabetes mellitus type: type 2 Diabetes mellitus senior living insulin use: with senior living use Diabetes mellitus complication status: with skin complications Diabetes mellitus complication detail: with foot ulcer Qualified Code(s): E11.621 - Type 2 diabetes mellitus with foot ulcer; L97.509 - Non-pressure chronic ulcer of other part of unspecified foot with unspecified severity; Z79.4 - 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 - New Patient This patient is new to me today: No - Critical Care Critical Care patient: No - Discharge Referral Referred to [facility] No
[2019-08-26] MEDS: INSULIN (LEVEMIR) 100 UNITS/ML UNITS SQ SCH (06:46)
[2019-08-26] MEDS: INSULIN SLIDING SCALE (NOVOLOG) 1 VIAL SQ SCH ×2 (06:46→11:42)
[2019-08-26 07:09] LABS: BASO % 0.7 % (0-2.0); EOS % 7.7 % (0-4.5); HEMATOCRIT 30.4 % (32.4-45.2); HEMOGLOBIN 9.7 GM/dL (10.7-15.3); LYMPH % 36.7 % (8-40); MCH 26.3 pg (25.7-33.7); MCHC 31.9 g/dl (32.0-36.0); MEAN CELL VOLUME 82.5 fl (80-96); MONO % 13.2 % (3.8-10.2); NEUT % 41.7 % (42.8-82.8); PLATELET COUNT 331 K/MM3 (134-434); RBC 3.68 M/mm3 (3.60-5.2); RDW 18.3 % (11.6-15.6); WHITE BLOOD COUNT 5.3 K/mm3 (4.0-10.0)
[2019-08-26 07:37] LABS: ALBUMIN 2.2 g/dl (3.4-5.0); BILIRUBIN,TOTAL 0.2 mg/dL (0.2-1); BLOOD UREA NITROGEN 54.5 mg/dL (7-18); CREATININE 1.7 mg/dL (0.55-1.3); POTASSIUM 3.9 mmol/L (3.5-5.1); TOT PROT 6.9 g/dl (6.4-8.2)
[2019-08-26] MEDS ORDERED: MEROPENEM 1 GM VIAL (RESTRICTED TO ID) IVPB ONE (08:02)
[2019-08-26] MEDS ORDERED: PT OWN MED DRAWER 7, Y5N ONE (08:02)
[2019-08-26] MEDS ORDERED: DEXTROSE 5%-WATER 100 ML IVPB ONE (08:02)
[2019-08-26] MEDS: MEROPENEM 1 GM in DEXTROSE 5%-WATER 100 ML IVPB SCH (08:39)
[2019-08-26] MEDS: AMOX TR/POT CLAV 500MG/125MG TABLETS (FP) PO SCH (08:39)
[2019-08-26] MEDS: AMINO ACIDS/PROTEIN HYDROLYS 30 ML LIQUID.PKT PO SCH (08:39)
[2019-08-26] MEDS: LORazepam 0.5 MG TABLET PO SCH (09:14)
[2019-08-26] MEDS: FERROUS SO4 325 MG TABLET (FP) PO SCH (09:14)
[2019-08-26] MEDS: APIXABAN 2.5 MG TABLET PO SCH (09:14)
[2019-08-26] MEDS: PANTOPRAZOLE 40 MG TABLET (FP) PO SCH (09:15)
[2019-08-26] MEDS: NYSTATIN POWDER 100,000 UNITS/GM - 15 GM TOPICAL POWDER TP SCH (09:15)
[2019-08-26] MEDS: BACITRACIN 15 GM TUBE TOPICAL OINTMENT TP SCH (09:15)
[2019-08-26] MEDS: risperiDONE 0.25 MG TABLET (FP) PO SCH (09:16)
--- NOTE | 2019-08-26 09:22 | PN ---
Progress Note, Physician History of Present Illness: stable no new issues - Current Medication List Current Medications: Active Medications Amino Acids (Prosource No Carb Liquid Pkt) 30 ml PO BID@0800,1730 [facility] Last Admin: 08/26/19 08:39 Dose: 30 ml Amoxicillin/Clavulanate Potassium (Augmentin - 500mg Tablet) 1 tab PO BID@0800, 1730 [facility] Last Admin: 08/26/19 08:39 Dose: 1 tab Apixaban (Eliquis -) 2.5 mg PO BID [facility] Last Admin: 08/25/19 21:23 Dose: 2.5 mg Bacitracin (Bacitracin -) 1 applic TP BID [facility] Last Admin: 08/25/19 21:24 Dose: 1 applic Collagenase (Santyl -) 1 applic TP DAILY [facility]; Protocol Last Admin: 08/25/19 11:58 Dose: 1 applic Diphenhydramine HCl (Benadryl -) 25 mg PO Q6H PRN PRN Reason: FOR ITCHING Ferrous Sulfate (Feosol -) 325 mg PO DAILY [facility] Last Admin: 08/25/19 09:24 Dose: 325 mg Meropenem 1 gm/ Dextrose 100 mls @ 200 mls/hr IVPB Q12H [facility] Stop: 08/26/19 20:15 Last Admin: 08/26/19 08:39 Dose: 200 mls/hr Insulin Aspart (Novolog Vial Sliding Scale -) 1 vial SQ TIDAC [facility]; Protocol Last Admin: 08/26/19 06:46 Dose: 2 units Insulin Detemir (Levemir Vial) 6 units SQ BID@0700,2200 [facility] Last Admin: 08/26/19 06:46 Dose: 6 unit Lorazepam (Ativan -) 0.5 mg PO BID [facility] Last Admin: 08/25/19 21:23 Dose: 0.5 mg Nystatin (Nystop Powder -) 1 applic TP BID [facility] Last Admin: 08/25/19 21:53 Dose: 1 applic Pantoprazole Sodium (Protonix -) 40 mg PO DAILY [facility] Last Admin: 08/25/19 09:24 Dose: 40 mg Propranolol HCl (Inderal -) 20 mg PO BID [facility] Last Admin: 08/25/19 21:23 Dose: 20 mg Risperidone (Risperdal -) 0.25 mg PO BID [facility] Last Admin: 08/25/19 21:23 Dose: 0.25 mg Sitagliptin Phosphate (Januvia -) 25 mg PO DAILY@0700 [facility] Last Admin: 08/26/19 06:46 Dose: 25 mg - Objective Vital Signs: Vital Signs Temperature 98.7 F 08/26/19 05:00 Pulse Rate 87 08/26/19 05:00 Respiratory Rate 22 H 08/26/19 05:00 Blood Pressure 141/66 08/26/19 05:00 O2 Sat by Pulse Oximetry (%) 97 08/25/19 21:00 Constitutional: Yes: No Distress, Calm Cardiovascular: Yes: S1, S2 Respiratory: Yes: Regular, CTA Bilaterally Gastrointestinal: Yes: Normal Bowel Sounds, Soft Musculoskeletal: Yes: WNL Extremities: Yes: Other Wound/Incision: Yes: Dressing Dry and Intact Neurological: Yes: Alert, Oriented Psychiatric: Yes: Alert, Oriented Labs: CBC, BMP 08/26/19 05:55 08/26/19 05:55 INR, PTT INR 1.42 (0.83-1.09) H 08/10/19 20:15 Assessment/Plan Problem List - Problems (1) Afib Code(s): I48.91 - UNSPECIFIED ATRIAL FIBRILLATION (2) Sepsis Code(s): A41.9 - SEPSIS, UNSPECIFIED ORGANISM Qualifiers: Sepsis type: sepsis due to unspecified organism Sepsis acute organ dysfunction status: with acute organ dysfunction Severe sepsis acute organ dysfunction type: acute renal failure Acute renal failure type: unspecified Severe sepsis shock status: without septic shock Qualified Code(s): A41.9 - Sepsis, unspecified organism; R65.20 - Severe sepsis without septic shock; N17.9 - Acute kidney failure, unspecified (3) AMILCAR (acute kidney injury) Code(s): N17.9 - ACUTE KIDNEY FAILURE, UNSPECIFIED (4) Diabetes Code(s): E11.9 - TYPE 2 DIABETES MELLITUS WITHOUT COMPLICATIONS Qualifiers: Diabetes mellitus type: type 2 Diabetes mellitus termite treater helper insulin use: with assisted use Diabetes mellitus complication status: with skin complications Diabetes mellitus complication detail: with foot ulcer Qualified Code(s): E11.621 - Type 2 diabetes mellitus with foot ulcer; L97.509 - Non-pressure chronic ulcer of other part of unspecified foot with unspecified severity; Z79.4 - assistant terminal manager (current) use of insulin (5) HLD (hyperlipidemia) Code(s): E78.5 - HYPERLIPIDEMIA, UNSPECIFIED (6) HTN (hypertension) Code(s): I10 - ESSENTIAL (PRIMARY) HYPERTENSION Qualifiers: Hypertension type: essential hypertension Qualified Code(s): I10 - Essential (primary) hypertension (7) Stage 4 skin ulcer of sacral region Code(s): L98.429 - NON-PRESSURE CHRONIC ULCER OF BACK WITH UNSPECIFIED SEVERITY plan continue current mgmt organisms noted abx rest continue current mgmt wound care can stop abx
--- NOTE | 2019-08-26 09:40 | DS ---
Physical Exam: SUBJECTIVE: Patient seen and examined OBJECTIVE: Patient is a 74 year old female (from [facility]) with PMH of HTN , DM2, HLD, chronic Afib (on eliquis), stage IV decubitus sacral ulcer, functional quadriplegia BIBEMS from [place] for anemia (Hgb 8.1). Pt has complained of mild abdominal discomfort and decreased appetite over the past 2 days. Also notes subjective fevers and chills. Upon arrival to the ED, pt was tachycardic at 129, febrile at 103.6. She denies any nausea, vomiting, chest pain, SOB, urinary symptoms, headaches. per ID, patient can discontinue all antibiotics on 08/26/19 and can be discharged back to [facility]. ------- right eye eyebrow bruise numerous scratches on back, self inflicted will add bacitracin. Vital Signs Period Temp Pulse Resp BP Sys/Uribe Pulse Ox Last 24 Hr 97.9 F-98.7 F 85-99 20-22 104-141/51-66 97 PHYSICAL EXAM GENERAL: The patient is awake, alert, in no acute distress. resting tremor left arm HEAD: Normal with no signs of trauma. EYES: PERRL, extraocular movements intact, sclera anicteric, conjunctiva clear. No ptosis. ENT: Ears normal, nares patent, oropharynx clear without exudates, moist mucous membranes. NECK: Trachea midline, full range of motion, supple. LUNGS: congested on upper lobes, lower lobes clear, tolerating room air HEART: Regular rate and rhythm ABDOMEN: mildly distended, + bowel sounds EXTREMITIES: no edema. NEUROLOGICAL: Normal speech, gait not observed. PSYCH: withdrawn SKIN: stage 4 sacrum, scratches on upper back, skin tear on upper back, apply bacitracin LABS Laboratory Results - last 24 hr 08/25/19 08/25/19 08/25/19 11:39 17:24 21:21 WBC RBC Hgb Hct MCV MCH MCHC RDW Plt Count MPV Absolute Neuts (auto) Neutrophils % Lymphocytes % Monocytes % Eosinophils % Basophils % Nucleated RBC % Sodium Potassium Chloride Carbon Dioxide Anion Gap BUN Creatinine Est GFR (CKD-EPI)AfAm Est GFR (CKD-EPI)NonAf POC Glucometer 188 156 123 Random Glucose Calcium Magnesium Total Bilirubin AST ALT Alkaline Phosphatase Total Protein Albumin 08/26/19 08/26/19 08/26/19 05:55 05:55 06:45 WBC 5.3 RBC 3.68 Hgb 9.7 L Hct 30.4 L MCV 82.5 MCH 26.3 MCHC 31.9 L RDW 18.3 H Plt Count 331 MPV 9.0 Absolute Neuts (auto) 2.2 Neutrophils % 41.7 L D Lymphocytes % 36.7 D Monocytes % 13.2 H Eosinophils % 7.7 H Basophils % 0.7 Nucleated RBC % 0 Sodium 142 Potassium 3.9 Chloride 117 H Carbon Dioxide 17 L Anion Gap 8 BUN 54.5 H Creatinine 1.7 H Est GFR (CKD-EPI)AfAm 34.08 Est GFR (CKD-EPI)NonAf 29.40 POC Glucometer 163 Random Glucose 170 H Calcium 9.0 Magnesium 2.0 Total Bilirubin 0.2 AST 11 L ALT 21 Alkaline Phosphatase 126 H Total Protein 6.9 Albumin 2.2 L HOSPITAL COURSE: Date of Admission:08/10/19 Date of Discharge: 08/26/19 Minutes to complete discharge: 45 Discharge Summary Problems reviewed: Yes Reason For Visit: SEPSIS Current Active Problems Afib (Acute) Anemia (Acute) DVT prophylaxis (Acute) Dilated bile duct (Acute) Incontinence (Acute) Prophylactic measure (Acute) Sepsis (Acute) Condition: Improved - Instructions Diet, Activity, Other Instructions: DISCHARGE YOUR VISIT You came to the hospital because you had abdominal pain and fevers. You were started on IV antibiotics and you completed the course. MEDICATIONS Please continue to take your home medications as prescribed. DIET Continue your home diet ADDITIONAL CARE Please make an appointment to see your primary care provider, 2 weeks from today. ADDITIONAL INFORMATION Please call 911 or come directly to the emergency department if you experience unusual headache, vision change, shortness of breath, chest pain, numbness, tingling, loss of alertness/awareness, loss of function, unusual bleeding or any alarming symptoms. Thank you for allowing us to care for you. Referrals: Chel Mcdaniels MD [Staff Physician] - ON STAFF,NOT [Non Staff, Medical] - Disposition: RESIDENTIAL FACILITY - Home Medications Comprehensive Discharge Medication List: Ambulatory Orders Apixaban [Eliquis -] 2.5 mg PO BID 05/19/18 Ferrous Sulfate [Feosol] 1 tab PO DAILY 05/19/18 LORazepam [Ativan] 1 mg PO BID 05/19/18 Mvit,Calcium,Iron,Mins/A.acids [K-Goodridge Double Strength Capsule] 1 each PO DAILY 05/19/18 Propranolol HCl 20 mg PO BID 05/19/18 Risperidone [Risperdal -] 0.25 mg PO BID 05/19/18 Insulin (Levemir) [Levemir Vial] 6 units SQ BID@0700,2200 units 06/26/18 Melatonin 3 mg PO DAILY 08/11/19 Sitagliptin Phosphate [Januvia] 25 mg PO DAILY 08/11/19 Amino Acids/Protein Hydrolys [Prosource No Carb Liquid Pkt] 30 ml PO BID@0800, 1730 packet 08/19/19 Amox-Tr/K Cl [Augmentin 500-125mg Tablet -] 1 tab PO BID@0800,1730 tablet 08/19 Collagenase Clostridium Hist. [Santyl -] 1 applic TP DAILY tube 08/19/19 Insulin Sliding Scale [Novolog Vial Sliding Scale -] 1 vial SQ TIDAC units Pantoprazole Sodium [Protonix -] 40 mg PO DAILY tablet.ec 08/19/19 Bacitracin - [Bacitracin Topical Ointment -] 1 applic TP BID tube 08/26/19 Nystatin Powder [Nystop Powder -] 1 applic TP BID applic 08/26/19 Problem List - Problems (1) Sepsis Assessment/Plan: Stage IV decubitus sacral ulcer with erythematous borders, no odor or drainage. on santyl. wound with pseudomonas, VRE, MSSA patient completed Meropenemon/augmentin on 08/26/2019, and will be discharged back to [facility] abd/pelvis withput evidence of osteomyelitis and no fluid collections seen vascular surgery (Dr. Solis) and no surgical intervention recommended Code(s): A41.9 - SEPSIS, UNSPECIFIED ORGANISM Qualifiers: Sepsis type: sepsis due to unspecified organism Sepsis acute organ dysfunction status: with acute organ dysfunction Severe sepsis acute organ dysfunction type: acute renal failure Acute renal failure type: unspecified Severe sepsis shock status: without septic shock Qualified Code(s): A41.9 - Sepsis, unspecified organism; R65.20 - Severe sepsis without septic shock; N17.9 - Acute kidney failure, unspecified (2) Afib Assessment/Plan: EKG on admission :sinus tachycardia, no st elevations or t wave inversions On eliquis 2.5mg BID Code(s): I48.91 - UNSPECIFIED ATRIAL FIBRILLATION (3) Dilated bile duct Assessment/Plan: Chronically dilated but nonobstructed common bile duct based on current MRCP per GI. Possible repeated passage of GB stones. Cholecystectomy declined by family and patient. Code(s): K83.8 - OTHER SPECIFIED DISEASES OF BILIARY TRACT (4) Incontinence Assessment/Plan: patterson catheter placed to divert urine from entering sacral wound Code(s): R32 - UNSPECIFIED URINARY INCONTINENCE (5) AMILCAR (acute kidney injury) Assessment/Plan: improving Likely 2/2 sepsis BUN/Cr: 55/ 2.2-on admission (baseline Cr: 1.4) Now 1.6 continue to monitor kidney function Avoid nephrotoxic agents Code(s): N17.9 - ACUTE KIDNEY FAILURE, UNSPECIFIED (6) Anemia Assessment/Plan: anemia without evidence of bleeding. EGD and colonoscopy declined Code(s): D64.9 - ANEMIA, UNSPECIFIED (7) Diabetes Assessment/Plan: Cont home levemir 6 units BID BGM AC/HS with novlog sliding scale Code(s): E11.9 - TYPE 2 DIABETES MELLITUS WITHOUT COMPLICATIONS Qualifiers: Diabetes mellitus type: type 2 Diabetes mellitus usp insulin use: with usp use Diabetes mellitus complication status: with skin complications Diabetes mellitus complication detail: with foot ulcer Qualified Code(s): E11.621 - Type 2 diabetes mellitus with foot ulcer; L97.509 - Non-pressure chronic ulcer of other part of unspecified foot with unspecified severity; Z79.4 - assisted (current) use of insulin (8) Prophylactic measure Assessment/Plan: discharge back to [facility] Code(s): Z29.9 - ENCOUNTER FOR PROPHYLACTIC MEASURES, UNSPECIFIED (9) DVT prophylaxis Assessment/Plan: on eliquis Code(s): Z29.9 - ENCOUNTER FOR PROPHYLACTIC MEASURES, UNSPECIFIED This patient is new to me today: No Emergency Visit: Yes ED Registration Date: 08/10/19 Care time: The patient presented to the Emergency Department on the above date and was hospitalized for further evaluation of their emergent condition. Critical Care patient: No - Discharge Referral Referred to [facility] Med P.C.: No
[2019-08-26] MEDS: COLLAGENASE CLOSTRIDIUM HIST. 30 GRAMS TUBE TP SCH (12:14)
[2019-08-26 14:18] VITALS: BP 140/74; PULSE 98; TEMP 97.7
== END 2019-08-26 14:00 | DRG 871 ==
LOC: JER 17:30 → JERBED 22:07 → J5S 08-11 04:40 → J5W 08-19 23:34 → J7W 08-19 23:54
PROVIDERS: ADMIT Internal Medicine; ATTEND Nurse Practitioner Family
PROC: 30233N1 Transfusion of Nonautologous Red Blood Cells into Peripheral Vein, Percutaneous Approach (ICD-10-PCS; principal; 2019-08-14)
DX: A41.01 Sepsis due to Methicillin susceptible Staphylococcus aureus (principal); L89.314 Pressure ulcer of right buttock, stage 4; L89.154 Pressure ulcer of sacral region, stage 4; R53.2 Functional quadriplegia; N17.9 Acute kidney failure, unspecified; M86.9 Osteomyelitis, unspecified; N39.0 Urinary tract infection, site not specified; I48.20 Chronic atrial fibrillation, unspecified; L97.508 Non-pressure chronic ulcer of other part of unspecified foot with other specified severity; R65.20 Severe sepsis without septic shock; E11.621 Type 2 diabetes mellitus with foot ulcer; A41.89 Other specified sepsis; E78.5 Hyperlipidemia, unspecified; E11.9 Type 2 diabetes mellitus without complications; K59.09 Other constipation; R50.9 Fever, unspecified; F31.9 Bipolar disorder, unspecified; R00.0 Tachycardia, unspecified; R32 Unspecified urinary incontinence; K82.8 Other specified diseases of gallbladder; D50.9 Iron deficiency anemia, unspecified; E11.69 Type 2 diabetes mellitus with other specified complication; K80.20 Calculus of gallbladder without cholecystitis without obstruction; I12.9 Hypertensive chronic kidney disease with stage 1 through stage 4 chronic kidney disease, or unspecified chronic kidney disease; E11.22 Type 2 diabetes mellitus with diabetic chronic kidney disease; N18.2 Chronic kidney disease, stage 2 (mild); Z79.4 Long term (current) use of insulin; Z86.718 Personal history of other venous thrombosis and embolism
CPT/HCPCS: 36415; 36430; 36511; 71045-TC-FY; 72195-TC; 74182-TC; 76705-TC; 80053; 81003; 82150; 82272; 82550; 82607; 82746; 82803; 82962; 82977; 83010; 83516; 83605; 83615; 83690; 83735; 84155; 84165; 84484; 85025; 85044; 85610; 85651; 85730; 86140; 86301; 86850; 86870; 86900; 86901; 86902; 86922; 87040; 87070; 87081; 87086; 87186; 87205; 87324; 87449; 87804; 93005; 93010; 99285-25; A9579; J0131; J0878; J7030; P9038; P9058